=== PATIENT | male | born 1955 | race Caucasian/White ===

== ENCOUNTER 2019-07-20 18:58 | Emergency (ER) | payer MEDICARE, MEDICAID, SELFPAY ==
[2019-07-20 19:11] VITALS: BP 112/66; PULSE 96; RESP 18; TEMP 35.7; O2SAT 96; BMI 35.9
--- NOTE | 2019-07-20 19:26 | ECG_ITS ---
Measurements Intervals [place] Rate: 96 P: 19 MN: 185 QRS: -24 QRSD: 87 T: 58 QT: 334 QTc: 423 SINUS RHYTHM BORDERLINE LEFT AXIS DEVIATION [QRS AXIS < -20] Compared to ECG 12/27/2017 04:02:00 Ventricular premature complex(es) no longer present Electronically Signed On 07-21-2019 15:30:13 CDT by Neil Galdamez M.D. [id number]
--- NOTE | 2019-07-20 19:26 | XR_ITS ---
WS: [id number] CHEST XRAY TECHNIQUE: Portable chest. CLINICAL INFORMATION: cough/congestion COMPARISON: April 17, 2018 FINDINGS: Heart: Cardiomegaly. Lungs: Lungs are clear. No consolidation or pleural effusion. No acute pulmonary infiltrates. Bones: Normal visualized bony structures. XR/XR chest 1V portable [id number] IMPRESSION: No acute chest findings
--- NOTE | 2019-07-20 19:27 | W.ED.BACK ---
HPI - Back Pain/Injury General: Chief Complaint: Back Pain/Injury Stated Complaint: BACK PAIN Time Seen by Provider: 07/20/19 19:14 Source: patient Mode of arrival: ambulatory Limitations: no limitations History of Present Illness: HPI Narrative: Patient is a very nice 63-year-old male with a history of obesity, myocardial infarction with several cardiac stents, hypertension, dyslipidemia, chronic kidney disease and sleep apnea here for complaints of back pain that began earlier this afternoon when patient was outside. Patient states he has had 5 previous heart attacks all of which have presented solely with upper back pains. Patient tells me he was able to drink some water and Gatorade that seemed to help his back pain. He is currently rating his pain at a 2 out of 10. Patient has no complaints of chest pain, shortness of breath, difficulty breathing, diaphoresis, nausea/vomiting. MD elicited complaint: back pain Pertinent past history: prior back pain (with previous MIs) Onset (ago): hour(s) Timing: improved Similar Symptoms Previously: Yes Location: thoracic spine Radiation: none Context: other (while outside in the heat) Associated symptoms: Reports no associated symptoms; Deny abdominal pain, chills, difficulty walking, dysuria, fatigue, fever(s), nausea, syncope, urinary urgency or vomiting Work related injury: No Review of Systems General: Reports: 10 or more systems reviewed and unremarkable except in HPI and below Const: Denies: fever, chills, body aches, change in appetite, change in weight, fatigue or malaise Eyes: Denies: change in vision, blurry vision or photophobia ENMT: Denies: throat pain, enlarged tonsils or painful swallowing Card: Denies: chest pain, palpitations, irregular heart rhythm, edema, swelling of feet/ankles, lightheadedness, syncope or pre-syncope Resp: Denies: shortness of breath, productive cough, non-productive cough, coughing up blood or chest congestion GI: Denies: abdominal pain, nausea or vomiting : Denies: flank pain, difficulty urinating, painful urination, urinary frequency, urinary urgency or urinary hesitancy Musc: Reports: back pain; Denies: neck pain, extremity pain, extremity swelling, joint pain or joint swelling Skin/Breast: Denies: rash Neuro: Denies: headache, numbness in extremities, weakness in extremities, changes in sensation, lack of coordination or difficulty walking PFSH ED PFSH: Social History Smoking and tobacco status: never smoked Alcohol intake: former Lives independently: Yes Household members: other Details: DOG Marital status: service: No Current occupational status: disabled 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 Physical Exam Const: COMMON NORMALS: no apparent distress, oriented x3, no limitations and alert NUTRITIONAL APPEARANCE: obese HENMT: COMMON NORMALS: normocephalic and head/scalp atraumatic HEAD & SCALP: normocephalic and atraumatic Chest: COMMONS NORMALS: inspection of chest normal and palpation of chest normal Resp: COMMON NORMALS: normal respiratory effort and clear to auscultation bilaterally AUSCULTATION: clear to auscultation bilaterally Cardio: COMMON NORMALS: regular rate and regular rhythm RATE: regular rate RHYTHM: regular rhythm GI: COMMON NORMALS: normal to inspection, nondistended, normoactive bowel sounds, soft to palpation and non-tender PALPATION: Yes soft : COMMON NORMALS: Yes no CVA tenderness BLADDER/KIDNEY EXAM: Yes no CVA tenderness Back/Pelvis: COMMON NORMALS: no CVA tenderness, thoracic and lumbar spine normal to inspection, no thoracic nor lumbar tenderness and thoraco-lumbar ROM normal Extremity: COMMON NORMALS: normal to inspection and full ROM Neuro: COMMON NORMALS: oriented x3 SENSORIUM/ORIENTATION: Yes alert Skin: COMMON NORMALS: no rashes or lesions noted GENERAL SKIN EXAM: no rashes or lesions noted Course Vital Signs: Vital signs: Vital Signs Temperature 96.3 F L 07/20/19 19:11 Pulse Rate 87 07/20/19 20:56 Respiratory Rate 16 07/20/19 20:56 Blood Pressure 117/59 07/20/19 20:56 Pulse Oximetry 96 07/20/19 20:56 MDM - Back Pain/Injury MDM Narrative: Medical decision making narrative: Patient keeps telling me I feel good now . States he has no pain. Patient requesting to go home. Patient's initial troponin came back at 23. His repeat is negative. EKGs show no acute changes. His history is not suspicious for cardiac ischemia. Again patient is requesting to be discharged. We will have case management work on getting him set up with his director supplier quality Dr. Galdamez for reevaluation. Lab Data: Labs: Lab Results 07/20/19 07/20/19 07/20/19 Range/Units 19:46 19:46 19:46 WBC 8.8 (4.0-10.0) 10^3/ uL RBC 4.44 (4.1-5.3) 10^6/u L Hgb 12.7 (11.7-16.6) g/dL Hct 39.2 L (42.0-52.0) % MCV 88.3 (80-94) fL MCH 28.6 (28.0-34.0) pg MCHC 32.4 (30.0-36.0) g/dL RDW 14.0 (12.1-15.1) % Plt Count 206 (130-400) 10^3/c mm MPV 11.5 H (7.4-10.4) fL Neut % (Auto) 72.8 % Lymph % (Auto) 15.3 % [place] % (Auto) 9.6 % Eos % (Auto) 1.5 % Baso % (Auto) 0.3 % Neut # (Auto) 6.4 (1.8-7.7) 10^3/u L Lymph # (Auto) 1.3 (0.8-4.8) 10^3/u L [place] # (Auto) 0.8 (0.2-0.9) 10^3/u L Eos # (Auto) 0.1 (0.0-0.8) 10^3/u L Baso # (Auto) 0.0 (0.0-0.1) 10^3/u L Nucleated RBC % (a uto) 0 % Nucleated RBCs # 0.0 /100WBC Sodium 136 (136-145) mmol/L Potassium 4.4 (3.5-5.1) mmol/L Chloride 97 L (98-107) mmol/L Carbon Dioxide 24 (22-29) mmol/L Anion Gap 19.4 H (5-19) BUN 47 H (8-23) mg/dL Creatinine 2.8 H (0.7-1.2) mg/dL GFR Calculation 23.0 L (90-130) mL/min Glucose 227 H (65-115) mg/dL Calculated Osmolal ity 287 (285-295) mOsm/k g Calcium 9.6 (8.5-10.5) mg/dL Total Bilirubin 0.5 (0.15-1.2) mg/dL AST 26 (0-40) U/L ALT 27 (0-41) U/L Alkaline Phosphata se 104 (40-130) IU/L Troponin T Baselin e 23 H (0-15) ng/mL Troponin T 120 Min curyung (0-15) ng/mL Total Protein 7.1 (6.6-8.7) g/dL Albumin 4.2 (3.5-5.2) g/dL Globulin 2.9 (1.3-4.6) g/dL 07/20/19 Range/Units 21:40 WBC (4.0-10.0) 10^3/ uL RBC (4.1-5.3) 10^6/u L Hgb (11.7-16.6) g/dL Hct (42.0-52.0) % MCV (80-94) fL MCH (28.0-34.0) pg MCHC (30.0-36.0) g/dL RDW (12.1-15.1) % Plt Count (130-400) 10^3/c mm MPV (7.4-10.4) fL Neut % (Auto) % Lymph % (Auto) % [place] % (Auto) % Eos % (Auto) % Baso % (Auto) % Neut # (Auto) (1.8-7.7) 10^3/u L Lymph # (Auto) (0.8-4.8) 10^3/u L [place] # (Auto) (0.2-0.9) 10^3/u L Eos # (Auto) (0.0-0.8) 10^3/u L Baso # (Auto) (0.0-0.1) 10^3/u L Nucleated RBC % (a uto) % Nucleated RBCs # /100WBC Sodium (136-145) mmol/L Potassium (3.5-5.1) mmol/L Chloride (98-107) mmol/L Carbon Dioxide (22-29) mmol/L Anion Gap (5-19) BUN (8-23) mg/dL Creatinine (0.7-1.2) mg/dL GFR Calculation (90-130) mL/min Glucose (65-115) mg/dL Calculated Osmolal ity (285-295) mOsm/k g Calcium (8.5-10.5) mg/dL Total Bilirubin (0.15-1.2) mg/dL AST (0-40) U/L ALT (0-41) U/L Alkaline Phosphata se (40-130) IU/L Troponin T Baselin e (0-15) ng/mL Troponin T 120 Min curyung 21.30 H (0-15) ng/mL Total Protein (6.6-8.7) g/dL Albumin (3.5-5.2) g/dL Globulin (1.3-4.6) g/dL Imaging Data^: CXR: My impression: cardiomegaly-unchanged from previous; no acute findings noted EKG Data^: EKG 1: EKG interpretation date: 07/20/19 EKG interpretation time: 19:22 Interpretation: Sinus rhythm Rate [address] elevation or depression noted When compared to most recent EKG on file (12/2017) no acute ischemic changes noted EKG 2: EKG interpretation date: 07/20/19 EKG interpretation time: 21:52 Interpretation: Sinus rhythm Rate 84 No acute changes from previous EKG performed earlier on this visit Discharge Plan Discharge Patient Disposition: Home, Self-Care Clinical Impression: Back pain Qualifiers: Back pain location: thoracic back pain Chronicity: acute Back pain laterality: midline Qualified Code(s): M54.6 - Pain in thoracic spine Condition: Stable Prescriptions: No Action aspirin [Adult Low Dose Aspirin] 81 mg tablet,delayed release (DR/EC) 81 mg PO DAILY RF: 0 clopidogrel 75 mg tablet 75 mg PO DAILY RF: 0 amlodipine 10 mg tablet 10 mg PO QDAY RF: 0 lisinopril 40 mg tablet 40 mg PO DAILY RF: 0 metoprolol tartrate 50 mg tablet 50 mg PO BID RF: 0 pantoprazole 40 mg tablet,delayed release (DR/EC) 40 mg PO DAILY RF: 0 atorvastatin 40 mg tablet 40 mg PO DAILY RF: 0 Multiple Vitamins Tablet 1 tab PO DAILY RF: 0 furosemide 40 mg tablet 40 mg PO BID RF: 0 isosorbide mononitrate 30 mg tablet extended release 24 hr 30 mg PO BID RF: 0 Aleve 220 mg Tablet 220 mg PO Q12H RF: 0 Novolog Mix 70-30FlexPen U-100 100 unit/mL (70-30) insulin pen See Rx Instructions .ROUTE .COMPLEX RF: 0 Victoza 2-Kg 0.6 mg/0.1 mL (18 mg/3 mL) Pen Injector 1.8 mg SUBCUT DAILY RF: 0 Levemir FlexTouch U-100 Insuln 100 unit/mL (3 mL) insulin pen 660 unit SUBCUT BID RF: 0 Discharge Orders: Discharge Order (Routine); Ordered 07/20/19 Ordered By: Maru Blanchard Referrals: [facility] [Other] Activity Restrictions/Additional Instructions: As discussed please return to the emergency department for worsening pain, chest pain, difficulty breathing, sweating, nausea/vomiting, any other concerns you may have. Case management will contact you shortly to set you up with your director supplier quality. Coding Level of Care Code ED Rug Hooker for Hugo Fwjoselo Exam Comprehensive
[2019-07-20 19:53] VITALS: BP 108/61; PULSE 93; RESP 18; O2SAT 97
[2019-07-20 19:56] LABS: Basophils % 0.3 %; Eosinophils # 0.1 10^3/uL (0.0-0.8); Eosinophils % 1.5 %; Hematocrit 39.2 % (42.0-52.0); Hemoglobin 12.7 g/dL (11.7-16.6); Lymphocytes # 1.3 10^3/uL (0.8-4.8); Lymphocytes % 15.3 %; Mean Corpuscular HGB Conc 32.4 g/dL (30.0-36.0); Mean Corpuscular Hemoglobin 28.6 pg (28.0-34.0); Mean Corpuscular Volume 88.3 fL (80-94); Mean Platelet Volume 11.5 fL (7.4-10.4); Monocytes # 0.8 10^3/uL (0.2-0.9); Monocytes % 9.6 %; Neutrophils # 6.4 10^3/uL (1.8-7.7); Neutrophils % 72.8 %; Nucleated Red Blood Cells % 0 %; Platelet Count 206 10^3/cmm (130-400); Red Blood Count 4.44 10^6/uL (4.1-5.3); White Blood Count 8.8 10^3/uL (4.0-10.0)
[2019-07-20 20:11] LABS: Alanine Aminotransferase 27 U/L (0-41); Albumin Level 4.2 g/dL (3.5-5.2); Alkaline Phosphatase 104 IU/L (40-130); Anion Gap 19.4 (5-19); Aspartate Amino Transferase 26 U/L (0-40); Blood Urea Nitrogen 47 mg/dL (8-23); Calcium 9.6 mg/dL (8.5-10.5); Carbon Dioxide 24 mmol/L (22-29); Chloride 97 mmol/L (98-107); Globulin 2.9 g/dL (1.3-4.6); Glucose 227 mg/dL (65-115); Osmolality Calculated 287 mOsm/kg (285-295); Potassium 4.4 mmol/L (3.5-5.1); Sodium 136 mmol/L (136-145); Total Bilirubin 0.5 mg/dL (0.15-1.2); Total Protein 7.1 g/dL (6.6-8.7)
[2019-07-20 20:13] LABS: Troponin(5th) Baseline 23 ng/mL (0-15)
[2019-07-20] MEDS: sodium chloride 0.9% 1,000 ML 125 ML IV (20:53)
[2019-07-20 20:56] VITALS: BP 117/59; PULSE 87; RESP 16; O2SAT 96
--- NOTE | 2019-07-20 21:26 | ECG_ITS ---
Measurements Intervals [place] Rate: 84 P: 26 HI: 194 QRS: -25 QRSD: 94 T: 54 QT: 367 QTc: 434 SINUS RHYTHM BORDERLINE LEFT AXIS DEVIATION [QRS AXIS < -20] Compared to ECG 12/27/2017 04:02:00 Ventricular premature complex(es) no longer present Electronically Signed On 07-21-2019 15:30:56 CDT by Neil Galdamez M.D. [id number]
[2019-07-20 23:14] VITALS: BP 110/60; PULSE 83; RESP 16
--- NOTE | 2019-07-22 13:39 | DCPLANNER ---
technical program manager had message to schedule a follow up appointment for patient with [facility]. technical program manager called [facility], spoke with Luba, gave clinic patients information, was told that patients information would be printed and reviewed. Clinic will call patient with appointment information. technical program manager will call for appointment information.
--- NOTE | 2019-08-03 09:25 | DCPLANNER ---
oil well drilling manager called [facility] to confirm if an appointment had been scheduled with Dr. Galdamez since his visit in ED. oil well drilling manager spoke with Yaima, was told that she would schedule an appointment and will call patient with appointment information.
--- NOTE | 2019-08-04 09:13 | DCPLANNER ---
Patient has an appointment scheduled for Monday, August 05, 2019 at 10:[address] Galdamez. Clinic will call patient with appointment information.
--- NOTE | 2019-08-23 13:53 | DCPLANNER ---
Patient did attend appointment scheduled for 08.05.19 with [facility].
== END 2019-07-20 23:15 | disposition home or self-care (01) ==
PROVIDERS: Emergency Provider Physician Assistant
DX: M54.6 Pain in thoracic spine (principal); E78.5 Hyperlipidemia, unspecified; I12.9 Hypertensive chronic kidney disease with stage 1 through stage 4 chronic kidney disease, or unspecified chronic kidney disease; E11.22 Type 2 diabetes mellitus with diabetic chronic kidney disease; N18.9 Chronic kidney disease, unspecified; E66.9 Obesity, unspecified; G47.33 Obstructive sleep apnea (adult) (pediatric); I25.10 Atherosclerotic heart disease of native coronary artery without angina pectoris; I25.2 Old myocardial infarction
CPT/HCPCS: 12345; 36415; 71045; 80053; 84484; 85025; 93005; 96360; 96361; 99282; 99283; J7030

== ENCOUNTER 2019-09-22 13:19 | Outpatient (CLI) | payer MEDICARE, MEDICAID, SELFPAY ==
[2019-09-22 13:57] LABS: Basophils # 0.1 10^3/uL (0.0-0.1); Basophils % 0.8 %; Eosinophils # 0.2 10^3/uL (0.0-0.8); Eosinophils % 2.4 %; Hematocrit 40.3 % (42.0-52.0); Hemoglobin 12.8 g/dL (11.7-16.6); Lymphocytes # 1.5 10^3/uL (0.8-4.8); Lymphocytes % 20.5 %; Mean Corpuscular HGB Conc 31.8 g/dL (30.0-36.0); Mean Corpuscular Hemoglobin 29.1 pg (28.0-34.0); Mean Corpuscular Volume 91.6 fL (80-94); Mean Platelet Volume 11.3 fL (7.4-10.4); Monocytes # 0.6 10^3/uL (0.2-0.9); Monocytes % 9.1 %; Neutrophils # 4.7 10^3/uL (1.8-7.7); Neutrophils % 66.9 %; Nucleated Red Blood Cells % 0 %; Platelet Count 207 10^3/cmm (130-400); Red Cell Distribution Width 13.7 % (12.1-15.1); White Blood Count 7.1 10^3/uL (4.0-10.0)
[2019-09-22 14:22] LABS: 25 Hydroxy Vitamin D 22 ng/mL (30-100); Albumin Level 4.4 g/dL (3.5-5.2); Anion Gap 20.4 (5-19); Blood Urea Nitrogen 29 mg/dL (8-23); Calcium 9.9 mg/dL (8.5-10.5); Carbon Dioxide 25 mmol/L (22-29); Chloride 96 mmol/L (98-107); Glomerular Filtration Rate 47.3 mL/min (90-130); Glucose 311 mg/dL (65-115); Phosphorus 3.3 mg/dL (2.5-4.5); Potassium 4.4 mmol/L (3.5-5.1); Sodium 137 mmol/L (136-145)
[2019-09-22 14:41] LABS: Creatinine Urine, Random 154 mg/dL (39-259); Microalbumin Random Urine 11 ug/dL (0-20)
[2019-09-22 14:49] LABS: Microalbum Creatinine Ratio Ur 71 mg/dL (0-20)
[2019-09-22 15:32] LABS: Calcium 10.1 mg/dL (8.5-10.5); Parathyroid Hormone 53.9 pg/mL (15-65)
== END 2019-09-22 13:20 | disposition home or self-care (01) ==
PROVIDERS: PCP Internal Medicine; Visit Provider Internal Medicine Nephrology
DX: N18.3 Chronic kidney disease, stage 3 (moderate) (principal)
CPT/HCPCS: 36415; 80069; 82044; 82306; 82310; 83970; 85025

== ENCOUNTER 2020-03-22 12:43 | Outpatient (CLI) | payer MEDICARE, MEDICAID, SELFPAY ==
[2020-03-22 13:44] LABS: Basophils % 0.7 %; Eosinophils # 0.1 10^3/uL (0.0-0.8); Eosinophils % 2.3 %; Hematocrit 42.1 % (42.0-52.0); Hemoglobin 13.3 g/dL (11.7-16.6); Lymphocytes # 1.3 10^3/uL (0.8-4.8); Lymphocytes % 23.3 %; Mean Corpuscular HGB Conc 31.6 g/dL (30.0-36.0); Mean Corpuscular Hemoglobin 27.5 pg (28.0-34.0); Mean Corpuscular Volume 87.2 fL (80-94); Mean Platelet Volume 11.4 fL (7.4-10.4); Monocytes # 0.6 10^3/uL (0.2-0.9); Monocytes % 10.5 %; Neutrophils # 3.61 10^3/uL (1.8-7.7); Nucleated Red Blood Cells % 0 %; Platelet Count 204 10^3/cmm (130-400); Red Blood Count 4.83 10^6/uL (4.1-5.3); Red Cell Distribution Width 13.7 % (12.1-15.1); White Blood Count 5.7 10^3/uL (4.0-10.0)
[2020-03-22 14:05] LABS: Creatinine Urine, Random 47 mg/dL (39-259); Microalbumin Random Urine 5 ug/dL (0-20)
[2020-03-22 14:09] LABS: Microalbum Creatinine Ratio Ur 106 mg/dL (0-20)
[2020-03-22 14:21] LABS: 25 Hydroxy Vitamin D 26 ng/mL (30-100); Albumin Level 4.2 g/dL (3.5-5.2); Anion Gap 13.6 (5-19); Blood Urea Nitrogen 21 mg/dL (8-23); Calcium 9.4 mg/dL (8.5-10.5); Carbon Dioxide 27 mmol/L (22-29); Chloride 100 mmol/L (98-107); Glucose 151 mg/dL (65-115); Phosphorus 3.1 mg/dL (2.5-4.5); Potassium 3.6 mmol/L (3.5-5.1); Sodium 137 mmol/L (136-145)
[2020-03-22 14:25] LABS: Calcium 9.7 mg/dL (8.5-10.5)
[2020-03-22 18:45] LABS: Parathyroid Hormone 58.2 pg/mL (15-65)
== END 2020-03-22 12:44 | disposition home or self-care (01) ==
PROVIDERS: PCP Internal Medicine; Visit Provider Registered Nurse
DX: N18.30 Chronic kidney disease, stage 3 unspecified (principal)
CPT/HCPCS: 80069; 82044; 82306; 82310; 83970; 85025

== ENCOUNTER → 2020-04-08 12:44 | Outpatient (BNVA) | payer MEDICARE, MEDICAID, SELFPAY | PROVIDERS: PCP Internal Medicine; Visit Provider Nurse Practitioner Family | DX: Z20.828 Contact with and (suspected) exposure to other viral communicable diseases (principal) | CPT/HCPCS: 87635 ==

== ENCOUNTER 2020-05-12 11:25 | Outpatient (CLI) | payer MEDICARE, MEDICAID, SELFPAY ==
--- NOTE | 2020-05-12 11:58 | XRR_ITS ---
PROCEDURE INFORMATION: Exam: XR Abdomen, 1 View Exam date and time: 05/12/2020 11:58 AM Age: 64 years old Clinical indication: Abdominal pain; Prior surgery; Additional info: Back pain TECHNIQUE: Imaging protocol: XR of the abdomen. Views: Frontal supine view of the abdomen. 1 View. COMPARISON: CT Chest/Abdomen/Pelvis wo IV 12/24/2017 1:05 AM FINDINGS: Gastrointestinal tract: There is prominence of the amount of stool in the ascending and transverse colon. The small bowel is not dilated. Bones/joints: Unremarkable. XR/XR KUB [id number] IMPRESSION: 1. Prominence of the amount of stool in the colon. 2. No acute abnormalities are seen in the abdomen.
== END 2020-05-12 11:26 | disposition home or self-care (01) ==
LOC: RAD 11:28
PROVIDERS: PCP Internal Medicine; Visit Provider Nurse Practitioner
DX: M54.9 Dorsalgia, unspecified (principal)
CPT/HCPCS: 74018; 81000

== ENCOUNTER 2020-09-27 14:35 | Outpatient (CLI) | payer MEDICARE, MEDICAID, SELFPAY ==
[2020-09-27 15:19] LABS: Basophils # 0.1 10^3/uL (0.0-0.1); Basophils % 0.7 %; Eosinophils # 0.1 10^3/uL (0.0-0.8); Eosinophils % 1.5 %; Hematocrit 40.5 % (42.0-52.0); Hemoglobin 13.2 g/dL (11.7-16.6); Lymphocytes # 1.4 10^3/uL (0.8-4.8); Lymphocytes % 20.7 %; Mean Corpuscular HGB Conc 32.6 g/dL (30.0-36.0); Mean Corpuscular Hemoglobin 28.6 pg (28.0-34.0); Mean Corpuscular Volume 87.9 fL (80-94); Mean Platelet Volume 11.6 fL (7.4-10.4); Monocytes # 0.5 10^3/uL (0.2-0.9); Monocytes % 7.7 %; Neutrophils # 4.68 10^3/uL (1.8-7.7); Neutrophils % 69.1 %; Nucleated Red Blood Cells % 0 %; Platelet Count 203 10^3/cmm (130-400); Red Blood Count 4.61 10^6/uL (4.1-5.3); Red Cell Distribution Width 14.6 % (12.1-15.1); White Blood Count 6.8 10^3/uL (4.0-10.0)
[2020-09-27 15:42] LABS: Albumin Level 4.2 g/dL (3.5-5.2); Anion Gap 15.8 (5-19); Blood Urea Nitrogen 29 mg/dL (8-23); Calcium 8.8 mg/dL (8.5-10.5); Carbon Dioxide 26 mmol/L (22-29); Chloride 98 mmol/L (98-107); Glomerular Filtration Rate 55.6 mL/min (90-130); Glucose 273 mg/dL (65-115); Phosphorus 3.7 mg/dL (2.5-4.5); Potassium 3.8 mmol/L (3.5-5.1); Sodium 136 mmol/L (136-145)
[2020-09-27 15:50] LABS: Calcium 8.9 mg/dL (8.5-10.5)
[2020-09-27 15:52] LABS: Parathyroid Hormone 75.6 pg/mL (15-65)
[2020-09-27 15:57] LABS: 25 Hydroxy Vitamin D 26 ng/mL (30-100)
[2020-09-27 16:08] LABS: Creatinine Urine, Random 58 mg/dL (39-259); Microalbumin Random Urine 3 ug/dL (0-20)
[2020-09-27 16:11] LABS: Microalbum Creatinine Ratio Ur 52 mg/dL (0-20)
== END 2020-09-27 14:36 | disposition home or self-care (01) ==
LOC: LAB 14:44
PROVIDERS: PCP Internal Medicine; Visit Provider Internal Medicine Nephrology
DX: N18.30 Chronic kidney disease, stage 3 unspecified (principal)
CPT/HCPCS: 36415; 80069; 82044; 82306; 82310; 83970; 85025

== ENCOUNTER → 2020-12-14 13:17 | Outpatient (BNVA) | payer MEDICARE, MEDICAID, SELFPAY | PROVIDERS: PCP Internal Medicine; Visit Provider Surgery | DX: K52.9 Noninfective gastroenteritis and colitis, unspecified (principal); Z20.822 Contact with and (suspected) exposure to COVID-19 | CPT/HCPCS: 87635 ==

== ENCOUNTER 2020-12-20 07:53 | Day surgery (SDC) | payer MEDICARE, MEDICAID, SELFPAY ==
[2020-12-13 14:27] VITALS: BMI 34.2
--- NOTE | 2020-12-20 08:09 | ANES.PREANE2 ---
Pre-Anesthetic Assessment Pre-Anesthetic Assessment: Height/Weight: Height 1.73 m Weight 102.058 kg Preop Diagnosis: Diarrhea Proposed Procedure: Operation Date: 12/20/20 09:30 Proposed Procedures p [id number] k52.9(Not Applicable) - Prashant Haynes MD Familial anesthetic complications: None Was Beta Christian taken within 24 hours: Yes Was Clonidine taken within 24 hours: N/A Last intake: None Social: Social History: No alcohol and No tobacco Exam: Pre-Anes Outpt Exam: alert, oriented x 3, clear to auscultation bilaterally and regular rate & rhythm Airway: Cervical ROM: WNL MP: 1 Dentition: Other (no teeth) Pulmonary: Pulmonary: Sleep apnea CV/HEM: CV/HEM: CAD (stents > 1 year ago), HTN and OH (> 1 year ago) : : Chronic renal Insufficiency Metabolic: Metabolic: DM and Hyperlipidemia Musc/skel: Musc/skel: Lower Back Pain Anesthetic Plan: ASA status: 3 Anesthesia: MAC Risk of > 500 ml blood loss (7ml/kg in children): No PFSH Anesthesia PFSH: Medical History ASHD (arteriosclerotic heart disease) CKD (chronic kidney disease) (~10/12/20) Diabetes Diabetic foot ulcer HTN (hypertension) Hyperlipidemia Myocardial infarction CÉSAR (obstructive sleep apnea) Surgical History S/P angioplasty with stent S/P eye surgery Status post amputation of toe Status post colonoscopy Family History Mother CAD (coronary artery disease) Diabetes Social History Smoking and tobacco status: former smoker Alcohol intake: former Lives independently: Yes Household members: other Details: DOG Marital status: service: No Current occupational status: disabled 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
[2020-12-20 09:18] VITALS: BP 140/77; PULSE 78; RESP 18; TEMP 36.2; O2SAT 93
--- NOTE | 2020-12-20 09:20 | PC.NURSE ---
PATIENT STATES HE ATE ALL DAY YESTERDAY AND ONLY FEW BMS. INADEQUATE PREP. PT STATED HE MUST HAVE MISUNDERSTOOD THE COLON PREP. DR DANIELLE NOTIFIED. ORDERED TO RESCHEDULE CASE TO Thursday. NEW REG ACCOUNT WILL HAVE TO BE CREATED. REPEAT COVID SWAB WILL BE COLLECTED PRIOR TO LEAVING. IN CONTACT WITH DR DANIELLE'S OFFICE IN REGARDS TO RESCHEDULING CASE. PATIENT GIVEN ANOTHER COPY OF COLON PREP AND HEAVILY EDUCATED ON INSTRUCTIONS. SON AT BEDSIDE AND ALSO VERBALIZES UNDERSTANDING. PT VERBALIZED UNDERSTANDING THAT HE WILL NEED TO PURCHASE THE PREP MEDICATIONS AGAIN. WILL CALL PATIENT WILL NEW APPOINTMENT TIME WHEN FINALIZED.
--- NOTE | 2020-12-20 14:53 | ANE.PACU2 ---
Inpatient post-anesthesia follow up: Airway intact: Yes Vital signs: Temperature 97.2 F Pulse Rate 78 Respiratory Rate 18 Blood Pressure 140/77 Pulse Oximetry 93 Oxygen Delivery Me thod Room Air Oxygen Flow Rate Fraction of Inspir ed Oxygen Hydration adequate: Yes Nausea and vomiting: No Mental status: Baseline
[2020-12-21 14:58] LABS: Coronavirus Test Green County Not Detected
== END 2020-12-20 10:05 | disposition home or self-care (01) ==
PROVIDERS: PCP Internal Medicine; Visit Provider Surgery
PROC: 0DJD8ZZ Inspection of Lower Intestinal Tract, Via Natural or Artificial Opening Endoscopic (ICD-10-PCS; CPT 45378; principal; 2020-12-20 09:30)
DX: K52.9 Noninfective gastroenteritis and colitis, unspecified (principal); Z53.9 Procedure and treatment not carried out, unspecified reason
CPT/HCPCS: 87635

== ENCOUNTER 2020-12-24 06:35 | Day surgery (SDC) | payer MEDICARE, MEDICAID, SELFPAY ==
[2020-12-20 13:38] VITALS: BMI 33.4
--- NOTE | 2020-12-24 06:55 | W.PM.OPSFHP ---
Same Day Surgery H&P Indication for Procedure/HPI DATE OF PROCEDURE: December 24, 2020 CHIEF COMPLAINT/INDICATIONFOR SURGICAL PROCEDURE: chronic diarrhea PREOP DIAGNOSIS: screening colonoscopy PLANNED PROCEDRUE: Operation Date: 12/24/20 08:00 Proposed Procedures p Colonoscopy 73382 K52.9(Not Applicable) - Prashant Haynes MD Medications/Allergies* Home Medications Medication Instructions Recorded Confirmed Type amlodipine 10 mg tablet 10 mg PO QDAY 05/10/19 12/20/20 History aspirin 81 mg tablet,delayed 81 mg PO DAILY 05/10/19 12/20/20 History release atorvastatin 40 mg tablet 40 mg PO DAILY 05/10/19 12/20/20 History lisinopril 40 mg tablet 40 mg PO DAILY 05/10/19 12/20/20 History pantoprazole 40 mg tablet,delayed 40 mg PO DAILY 05/10/19 12/20/20 History release furosemide 40 mg PO BID 07/20/19 12/20/20 History insulin detemir U-100 [Levemir 660 unit SUBCUT BID 07/20/19 12/20/20 History FlexTouch U-100 Insuln] isosorbide mononitrate 30 mg PO BID 07/20/19 12/20/20 History liraglutide [Victoza 2-Kg] 1.8 mg SUBCUT DAILY 07/20/19 12/20/20 History naproxen sodium [Aleve] 220 mg PO Q12H 07/20/19 12/20/20 History insulin lispro 100 unit/mL 12 unit SUBCUT TID 10/12/20 12/20/20 History subcutaneous pen Allergies/Adverse Reactions Allergy/AdvReac Type Severity Reaction Status Date / Time No Known Allergies Allergy Verified 12/20/20 13:36 Pertinent History/Comorbid Conditions* Medical History (Updated 10/12/20 @ 08:42 by Prashant Haynes MD) ASHD (arteriosclerotic heart disease) CKD (chronic kidney disease) (~10/12/20) Diabetes Diabetic foot ulcer HTN (hypertension) Hyperlipidemia Myocardial infarction CÉSAR (obstructive sleep apnea) Surgical History (Updated 10/12/20 @ 08:42 by Prashant Haynes MD) S/P angioplasty with stent S/P eye surgery Status post amputation of toe Status post colonoscopy Family History (Updated 05/10/19 @ 12:26 by Jaye Hale RN) Diabetes Mother CAD (coronary artery disease) Mother Social History Smoking and tobacco status: former smoker Alcohol intake: former Lives independently: Yes Household members: other Details: DOG Marital status: service: No Current occupational status: disabled 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
[2020-12-24 07:12] VITALS: BP 156/92; PULSE 109; RESP 18; TEMP 36.6; O2SAT 97
--- NOTE | 2020-12-24 07:14 | ANES.PREANE2 ---
Pre-Anesthetic Assessment Pre-Anesthetic Assessment: Height/Weight: Height 1.73 m Weight 99.79 kg Preop Diagnosis: screening colonoscopy Proposed Procedure: Operation Date: 12/24/20 08:00 Proposed Procedures p Colonoscopy 83835 K52.9(Not Applicable) - Prashant Haynes MD Familial anesthetic complications: none Was Beta Christian taken within 24 hours: Yes Was Clonidine taken within 24 hours: N/A Social: Social History: No alcohol and No tobacco Exam: Pre-Anes Outpt Exam: alert, oriented x 3, clear to auscultation bilaterally and regular rate & rhythm Airway: Submandibular: WNL Cervical ROM: WNL MP: 2 Dentition: False Pulmonary: Pulmonary: Sleep apnea CV/HEM: CV/HEM: CAD, HTN, CT and PVD Comments: MIx6, stentsx6 : : Chronic renal Insufficiency Hepatic: Hepatic: None reported GI: GI: GERD (controlled) Metabolic: Metabolic: DM, Hyperlipidemia and Morbid obesity Musc/skel: Musc/skel: OA/DJD Neuropsych: Neuropsych: None reported Anesthetic Plan: ASA status: 3 Anesthesia: MAC Risk of > 500 ml blood loss (7ml/kg in children): No PFSH Anesthesia PFSH: Medical History ASHD (arteriosclerotic heart disease) CKD (chronic kidney disease) (~10/12/20) Diabetes Diabetic foot ulcer HTN (hypertension) Hyperlipidemia Myocardial infarction CÉSAR (obstructive sleep apnea) Surgical History S/P angioplasty with stent S/P eye surgery Status post amputation of toe Status post colonoscopy Family History Mother CAD (coronary artery disease) Diabetes Social History Smoking and tobacco status: former smoker Alcohol intake: former Lives independently: Yes Household members: other Details: DOG Marital status: service: No Current occupational status: disabled 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
--- NOTE | 2020-12-24 07:22 | ECG_ITS ---
[facility] Test Date: 2020-12-24 Pat Name: Yaya Astudillo Department: Room: Gender: Male Cabin Agent: : 1955 Requested By: Luis Guerra Order Number: [id number] MD: Kimberley Ramirez M.D. Measurements Intervals [place] Rate: 104 P: 24 FL: 209 QRS: -26 QRSD: 86 T: 50 QT: 349 QTc: 459 Interpretive Statements SINUS TACHYCARDIA POSSIBLE ANTERIOR MYOCARDIAL INFARCTION , OF INDETERMINATE AGE Compared to ECG 07/20/2019 21:52:49 Myocardial infarct finding now present Sinus rhythm no longer present Electronically Signed On 12-24-2020 19:10:44 CDT by Kimberley Ramirez M.D. [id number]
[2020-12-24] MEDS: sodium chloride 0.9% 1,000 ML 30 ML IV (07:26)
[2020-12-24 07:27] LABS: Glucose Point of Care 145 mg/dL (70-110)
[2020-12-24 08:27] VITALS: BP 91/78; PULSE 99; RESP 14; TEMP 36.1; O2SAT 95
--- NOTE | 2020-12-24 08:29 | ANE.PACU2 ---
Inpatient post-anesthesia follow up: Airway intact: Yes Vital signs: Temperature 97.9 F Pulse Rate 109 Respiratory Rate 18 Blood Pressure 156/92 Pulse Oximetry 97 Oxygen Delivery Me thod Room Air Oxygen Flow Rate Fraction of Inspir ed Oxygen Hydration adequate: Yes Nausea and vomiting: No Pain level: 1 Mental status: Baseline
[2020-12-24 08:40] VITALS: BP 136/85; PULSE 102; RESP 18; O2SAT 97
--- NOTE | 2020-12-24 09:02 | PC.NURSE ---
Pt states he has not passed gas, denies any pain.
== END 2020-12-24 09:00 | disposition home or self-care (01) ==
PROVIDERS: PCP Internal Medicine; Visit Provider Surgery
PROC: 0DJD8ZZ Inspection of Lower Intestinal Tract, Via Natural or Artificial Opening Endoscopic (ICD-10-PCS; CPT 45378; principal; 2020-12-24 08:00)
DX: K52.9 Noninfective gastroenteritis and colitis, unspecified (principal); D12.5 Benign neoplasm of sigmoid colon; K64.8 Other hemorrhoids; E78.5 Hyperlipidemia, unspecified; I25.2 Old myocardial infarction; G47.33 Obstructive sleep apnea (adult) (pediatric); E11.22 Type 2 diabetes mellitus with diabetic chronic kidney disease; I12.9 Hypertensive chronic kidney disease with stage 1 through stage 4 chronic kidney disease, or unspecified chronic kidney disease; N18.9 Chronic kidney disease, unspecified; I25.10 Atherosclerotic heart disease of native coronary artery without angina pectoris; Z95.5 Presence of coronary angioplasty implant and graft; E66.01 Morbid (severe) obesity due to excess calories; Z68.33 Body mass index [BMI] 33.0-33.9, adult; Z87.891 Personal history of nicotine dependence
CPT/HCPCS: 36416; 45380; 82274; 82962; 83630; 87493; 87506; 88305; 93005; 96360; J7030

== ENCOUNTER 2021-03-07 17:14 | Emergency (ER) | payer MEDICARE, MEDICAID, SELFPAY ==
[2021-03-07 17:34] VITALS: BP 170/83; PULSE 87; RESP 16; TEMP 36.3; O2SAT 96; BMI 33.4
--- NOTE | 2021-03-07 17:56 | W.ED.WEAKNES ---
HPI - Weakness General: Chief complaint: Weakness Stated complaint: DIZZY AND WEAK Time Seen by Provider: 03/07/21 17:32 History of Present Illness: HPI Narrative: Patient is a 65-year-old male comes to the ED with dizziness and weakness. Past medical history of sleep apnea, CKD, hypertension, hyperlipidemia, diabetes and arteriosclerotic heart disease. Patient also has a history of a past NE. Patient says he was feeling good today and when he sat down to eat dinner, while eating he started feeling really lightheaded and weak. He also reports feeling dizzy and describes it as cork bobbing on the ocean, denies room spinning. Denies any chest pain, shortness of breath, abdominal pain, headache. He feels nauseous and had an episode of emesis upon arriving to the ED. He says is bilateral arms and legs feel heavy. Son is present with patient and did say that somebody at the house brought over some pot brownies and he is worried that maybe his dad ate 1 of those brownies. Associated symptoms: Reports nausea and vomiting; Denies chest pain, chills, dysuria, fever(s) or headache(s) Review of Systems Const: Reports: fatigue (Generalized weakness); Denies: fever(s) or chills Eyes: Denies: change in vision or eye discomfort ENMT: Denies: throat pain, odynophagia, nasal discharge or nasal congestion Card: Reports: lightheadedness; Denies: chest pain, palpitations, edema, swelling of feet/ankles, dyspnea on exertion or orthopnea Resp: Denies: dyspnea, productive cough or non-productive cough GI: Reports: nausea and vomiting; Denies: abdominal pain, diarrhea, constipation or hematochezia : Denies: flank pain, difficulty urinating, dysuria or hematuria Musc: Denies: neck pain, back pain or extremity swelling Skin/Breast: Denies: rash or new lesions Neuro: Reports: dizziness; Denies: headache(s), numbness in extremities or weakness in extremities PFS ED PFSH: Medical History ASHD (arteriosclerotic heart disease) CKD (chronic kidney disease) (~10/12/20) Diabetes Diabetic foot ulcer HTN (hypertension) Hyperlipidemia Myocardial infarction CÉSAR (obstructive sleep apnea) Surgical History S/P angioplasty with stent S/P eye surgery Status post amputation of toe Status post colonoscopy (12/24/20) sigmoid polyp Family History Mother CAD (coronary artery disease) Diabetes Social History Smoking and tobacco status: former smoker Alcohol intake: former Lives independently: Yes Household members: other Details: DOG Marital status: service: No Current occupational status: disabled 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 Physical Exam Const: COMMON NORMALS: no acute distress, patient oriented x3 and alert GENERAL APPEARANCE: cooperative and comfortable HENMT: COMMON NORMALS: normocephalic HEAD & SCALP: normocephalic MOUTH: Normal oral and palatal mucosa present THROAT: posterior oropharynx normal and uvula midline Neck/C-Spine: COMMON NORMALS: supple GENERAL: Yes normal visual inspection Resp: COMMON NORMALS: normal respiratory effort, No retractions, No use of accessory muscles and clear to auscultation bilaterally AUSCULTATION: clear to auscultation bilaterally Cardio: COMMON NORMALS: regular rate, regular rhythm, S1 normal heart sound present, S2 normal heart sound present, No gallops present (Cardio), No clicks present (Cardio), No murmurs present (Cardio) and Peripheral pulses 2+ throughout RATE: regular rate RHYTHM: regular rhythm HEART SOUNDS: S1 normal heart sound present and S2 normal heart sound present PERIPHERAL PULSES: Peripheral pulses 2+ throughout GI: COMMON NORMALS: Normal to inspection, nondistended, normoactive bowel sounds present, Soft to palpation, non-tender and no masses PALPATION: Yes Soft to palpation : COMMON NORMALS: Yes no CVA tenderness BLADDER/KIDNEY EXAM: Yes no CVA tenderness Back/Pelvis: COMMON NORMALS: no CVA tenderness Neuro: COMMON NORMALS: patient oriented x3 and moves all extremities SENSORIUM/ORIENTATION: Yes alert Skin: GENERAL SKIN EXAM: dry skin Course Reevaluation(s): Reevaluation #1: I went in and talked with patient about him testing positive in his urine for marijuana. Patient says he does not use marijuana and the last time he ever tried it was when he was 19 years old. Patient did say he ate one of the brownie/muffins that was brought at [facility] today but was unaware that there was any marijuana in the brownie/muffin he ate. Time: 20:28 Reevaluation #2: Patient symptoms were improving and did not feel as lightheaded, fatigued and dizzy. Time: 20:54 Vital Signs: Vital signs: Vital Signs Temperature 97.4 F L 03/07/21 17:34 Pulse Rate 78 03/07/21 21:49 Respiratory Rate 18 03/07/21 21:49 Blood Pressure 151/58 03/07/21 21:49 Pulse Oximetry 99 03/07/21 21:49 MDM - Weakness MDM Narrative: Medical decision making narrative: Patient is a 65-year-old male who comes to the ED with generalized fatigue, dizziness and lightheaded. Past medical history of sleep apnea, CKD, hypertension, hyperlipidemia, diabetes and arterial sclerotic heart disease. Symptoms started while he was eating dinner tonight. Denies any syncopal episode, shortness of breath, chest pain. Patient did find out that one of the people came over and brought some pot brownies and patient was unaware that there was any marijuana in the brownies. He ate 1 of those's prior to him developing symptoms. Patient denies any marijuana use and states that if his urine shows marijuana that would be from the brownie. Vitals are stable. Exam is benign. Troponin negative. Chest x-ray shows no acute findings. EKG shows no acute findings. CBC and CMP were unremarkable. UA was unremarkable. Urine drug screen did test positive for marijuana. Alcohol level normal. CT of head showed no acute findings. Patient diagnosed with marijuana intoxication giving history and presentation of patient. His symptoms started improving while here in the ED. He was discharged home and told to follow-up with his PCP in 5 to 7 days reevaluation. Return to ED precautions given. Patient understood agree with plan. Lab Data: Attestation: I reviewed the patient's lab results. Labs: Lab Results 03/07/21 03/07/21 03/07/21 18:46 18:46 18:46 WBC 6.6 10^3/uL 10^3/ uL (4.0-10.0) RBC 4.86 10^6/uL 10^6 /uL (4.1-5.3) Hgb 13.9 g/dL g/dL (11.7-16.6) Hct 43.9 % % (42.0-52.0) MCV 90.3 fl fl (80-94) MCH 28.6 pg pg (28.0-34.0) MCHC 31.7 g/dL g/dL (30.0-36.0) RDW 13.4 % % (12.1-15.1) Plt Count 176 10^3/cmm 10^3 /cmm (130-400) MPV 11.1 fL H fL (7.4-10.4) Neut % (Auto) 78.9 % % Lymph % (Auto) 12.5 % % [place]verse % (Auto) 6.6 % % Eos % (Auto) 1.2 % % Baso % (Auto) 0.5 % % Neut # (Auto) 5.22 10^3/uL 10^3 /uL (1.8-7.7) Lymph # (Auto) 0.8 10^3/uL 10^3/ uL (0.8-4.8) Converse # (Auto) 0.4 10^3/uL 10^3/ uL (0.2-0.9) Eos # (Auto) 0.1 10^3/uL 10^3/ uL (0.0-0.8) Baso # (Auto) 0.0 10^3/uL 10^3/ uL (0.0-0.1) Nucleated RBC % (a uto) 0 % % Nucleated RBCs # 0.0 /100WBC /100W BC Sodium 136 mmol/L mmol/L (136-145) Potassium 4.0 mmol/L mmol/L (3.5-5.1) Chloride 96 mmol/L L mmol/ L (98-107) Carbon Dioxide 28 mmol/L mmol/L (22-29) Anion Gap 16.0 (5-19) BUN 21 mg/dL mg/dL (8-23) Creatinine 1.5 mg/dL H mg/dL (0.7-1.2) GFR Calculation 47.0 mL/min L mL/ min (90-130) Glucose 293 mg/dL H mg/dL (65-115) Calculated Osmolal ity 296 mOsm/kg H mOs m/kg (285-295) Calcium 8.8 mg/dL mg/dL (8.5-10.5) Total Bilirubin 0.6 mg/dL mg/dL (0.15-1.2) AST 17 U/L U/L (0-40) ALT 19 U/L U/L (0-41) Alkaline Phosphata se 112 IU/L IU/L (40-130) Troponin T Baselin e 15 ng/L ng/L (0-15) Troponin T 120 Min [place] Delta Troponin T NT-Pro-B Natriuret Pep 127 pg/mL H pg/mL (0-125) Total Protein 6.9 g/dL g/dL (6.6-8.7) Albumin 4.4 g/dL g/dL (3.5-5.2) Globulin 2.5 g/dL g/dL (1.3-4.6) Lipase 41 U/L U/L (13-60) Urine Color Urine Appearance Urine pH Ur Specific Gravit y Urine Protein Urine Glucose (UA) Urine Ketones Urine Blood Urine Nitrate Urine Bilirubin Urine Urobilinogen Ur Leukocyte Roma ase Urine RBC Urine WBC Ur Squamous Epith Cells Amorphous Sediment Urine Bacteria Urine Sperm Urine Opiates Scre en Ur Barbiturates Sc reen Ur Phencyclidine S crn Ur Amphetamines Sc reen U Benzodiazepines Scrn Urine Cocaine Scre en U Marijuana (THC) Screen Ethyl Alcohol < 10 mg/dL mg/dL (0-10) 03/07/21 03/07/21 03/07/21 19:19 19:19 20:27 WBC RBC Hgb Hct MCV MCH MCHC RDW Plt Count MPV Neut % (Auto) Lymph % (Auto) [place] % (Auto) Eos % (Auto) Baso % (Auto) Neut # (Auto) Lymph # (Auto) [place] # (Auto) Eos # (Auto) Baso # (Auto) Nucleated RBC % (a uto) Nucleated RBCs # Sodium Potassium Chloride Carbon Dioxide Anion Gap BUN Creatinine GFR Calculation Glucose Calculated Osmolal ity Calcium Total Bilirubin AST ALT Alkaline Phosphata se Troponin T Baselin e Troponin T 120 Min [place] 15.71 ng/L H ng/L (0-15) Delta Troponin T 0.71 ABS# ABS# (0-10) NT-Pro-B Natriuret Pep Total Protein Albumin Globulin Lipase Urine Color Yellow (Yellow) Urine Appearance Clear (CLEAR) Urine pH 6.5 (5-7) Ur Specific Gravit y 1.005 (1.005-1.030) Urine Protein Trace (Negative) Urine Glucose (UA) 4+ H (Normal) Urine Ketones Negative (Negative) Urine Blood Neg (Negative) Urine Nitrate Negative (Negative) Urine Bilirubin Neg (Negative) Urine Urobilinogen Norm mg/dL mg/dL (Negative) Ur Leukocyte Roma ase Negative (Negative) Urine RBC 0-4 /hpf H /hpf (0-2) Urine WBC 0-4 /hpf H /hpf (0-5) Ur Squamous Epith Cells 0-4 /hpf H /hpf (0-5) Amorphous Sediment Not Reportable Urine Bacteria Trace /hpf /hpf (NONE) Urine Sperm 1+ /hpf /hpf Urine Opiates Scre en Negative ng/mL ng /mL (Negative) Ur Barbiturates Sc reen Negative ng/mL ng /mL (Negative) Ur Phencyclidine S crn Negative ng/mL ng /mL (Negative) Ur Amphetamines Sc reen Negative ng/mL ng /mL (Negative) U Benzodiazepines Scrn Negative ng/mL ng /mL (Negative) Urine Cocaine Scre en Negative ng/mL ng /mL (Negative) U Marijuana (THC) Screen Positive ng/mL H ng/mL (Negative) Ethyl Alcohol Imaging Data^: CT Head: Attestation: I personally reviewed and interpreted this imaging study as follows: Radiologist's impression: [address] [address] [address] Scan Report Signed Patient: Yaya Astudillo Unit #: [id number] : 1955 Age/Sex: 65 / M ADM Date: 03/07/21 Loc: ER Room/Bed: Attending Dr: Ordering Provider/Ordering MD: Servando Balbuena Date of Service: 03/07/21 Procedure(s): CT head wo con* [id number] Accession Number(s): [id number] Report Number: [id number] PROCEDURE INFORMATION: Exam: CT Head Without Contrast Exam date and time: 03/07/2021 6:04 PM Age: 65 years old Clinical indication: Dizziness TECHNIQUE: Imaging protocol: Computed tomography of the head without contrast. Total images: 190 Radiation optimization: All CT scans at this facility use at least one of these dose optimization techniques: automated exposure control; mA and/or kV adjustment per patient size (includes targeted exams where dose is matched to clinical indication); or iterative reconstruction. COMPARISON: No relevant prior studies available. RADIATION DOSE METRICS: Total DLP (mGy-cm): 906.41 FINDINGS: Brain: No evidence of active or acute intracranial pathologic process, hemorrhage, or trauma. No visible evidence of diffuse cerebral edema or generalized demyelination. No mass effect. No midline shift. No hyperdense MCA or insular ribbon sign. Cerebral ventricles: No ventriculomegaly. Paranasal sinuses: Visualized sinuses are unremarkable. No fluid levels. Mastoid air cells: Visualized mastoid air cells are well aerated. Bones/joints: Unremarkable. No acute fracture. Soft tissues: Unremarkable. CT/CT head wo con* [id number] IMPRESSION: No evidence of active or acute intracranial pathologic process, hemorrhage, or trauma. Radiation Dose CTDIVOL = (mGy): DLP = 906.41 (mGy-cm) Dictated By: Yaya Bonner Signed By: Yaya Bonner Signed Date/Time: 03/07/211954 DD/ 03 CXR: Attestation: I personally reviewed and interpreted this imaging study as follows: Radiologist's impression: [address] [address] XRay Report Signed Patient: Yaya Astudillo Unit #: [id number] : 1955 Age/Sex: 65 / M ADM Date: 03/07/21 Loc: ER Room/Bed: Attending Dr: Ordering Provider/Ordering MD: Servando Balbuena Date of Service: 03/07/21 Procedure(s): XR chest 1V portable [id number] Accession Number(s): [id number] Report Number: [id number] PROCEDURE INFORMATION: Exam: XR Chest Exam date and time: 03/07/2021 6:11 PM Age: 65 years old Clinical indication: Pain; Chest pressure; Additional info: Lightheaded, weakness TECHNIQUE: Imaging protocol: XR of the chest. Views: 1 view. Total images: 1 COMPARISON: CR XR chest 1V portable [id number] 07/20/2019 7:29 PM FINDINGS: Lungs: No visible active interstitial or alveolar airspace disease. Calcified granulomas of antecedent disease. Pleural spaces: Unremarkable. No pleural effusion. No pneumothorax. Heart/Mediastinum: Cardiac structures and configuration within normal limits. Bones/joints: Unremarkable. Soft tissues: Heavy body habitus. XR/XR chest 1V portable [id number] IMPRESSION: Nonacute. Radiation Dose CTDIVOL = (mGy): DLP = (mGy-cm) Dictated By: Yaya Bonner Signed By: Yaya Bonner Signed Date/Time: 03/07/211952 DD/ 10 EKG Data^: EKG 1: Attestation: I personally reviewed and interpreted this EKG as follows: EKG interpretation date: 03/07/21 Interpretation: Normal sinus rhythm, 87 bpm, no ST segment elevation or depression seen. EKG 2: Attestation: I personally reviewed and interpreted this EKG as follows: EKG interpretation date: 03/07/21 EKG interpretation time: 20:23 Interpretation: Normal sinus rhythm, 80 bpm, no ST segment elevation or depression seen. Discharge Plan Discharge Patient Disposition: Home Clinical Impression: Marijuana intoxication Qualifiers: Complication of substance-induced condition: uncomplicated Qualified Code(s): F12.920 - Cannabis use, unspecified with intoxication, uncomplicated Condition: Stable Prescriptions: No Action aspirin [Adult Low Dose Aspirin] 81 mg tablet,delayed release (DR/EC) 81 mg PO DAILY RF: 0 amlodipine 10 mg tablet 10 mg PO QDAY RF: 0 lisinopril 40 mg tablet 40 mg PO DAILY RF: 0 pantoprazole 40 mg tablet,delayed release (DR/EC) 40 mg PO DAILY RF: 0 atorvastatin 40 mg tablet 40 mg PO DAILY RF: 0 baclofen 5 mg tablet 5 mg PO BID PRN (Reason: pain) Qty: 10 RF: 0 insulin lispro [Humalog KwikPen Insulin] 100 unit/mL insulin pen 12 unit SUBCUT TID RF: 0 clopidogrel 75 mg tablet 75 mg PO DAILY 90 Days Qty: 90 RF: 3 metoprolol tartrate 50 mg tablet 50 mg PO BID Qty: 180 RF: 3 furosemide 40 mg tablet 40 mg PO BID RF: 0 isosorbide mononitrate 30 mg tablet extended release 24 hr 30 mg PO BID RF: 0 naproxen sodium [Aleve] 220 mg Tablet 220 mg PO Q12H RF: 0 Victoza 2-Kg 0.6 mg/0.1 mL (18 mg/3 mL) Pen Injector 1.8 mg SUBCUT DAILY RF: 0 Levemir FlexTouch U-100 Insuln 100 unit/mL (3 mL) insulin pen 660 unit SUBCUT BID RF: 0 Discharge Orders: Discharge ED (Routine); Ordered 03/07/21 Ordered By: Servando Balbuena Referrals: Janine Pal MD [Primary Care Provider] - Discharge Diet: Regular Discharge Activity: Resume usual activity Activity Restrictions/Additional Instructions: Follow-up with medical provider as directed in 5 to 7 days for reevaluation. Continue taking all home medications as prescribed. Stay away from the [facility]. return to the ER or your medical provider if condition worsens. Please read and understand discharge instructions. Thank you for choosing [facility] for your healthcare needs today. Please realize this is an emergency room and that we are providing you with a medical screening exam and this may not be complete and all inclusive of all the testing and or work up that you may need to determine your ailment or severity of your illness. It is very important that you follow up as instructed or that you return to the Emergency Department should you have concerns or if your condition changes or worsens in any way. Coding Level of Care Code ED Patient Relations Liaison for Hugo Garcia Exam Comprehensive
--- NOTE | 2021-03-07 18:04 | CTR_ITS ---
PROCEDURE INFORMATION: Exam: CT Head Without Contrast Exam date and time: 03/07/2021 6:04 PM Age: 65 years old Clinical indication: Dizziness TECHNIQUE: Imaging protocol: Computed tomography of the head without contrast. Total images: 190 Radiation optimization: All CT scans at this facility use at least one of these dose optimization techniques: automated exposure control; mA and/or kV adjustment per patient size (includes targeted exams where dose is matched to clinical indication); or iterative reconstruction. COMPARISON: No relevant prior studies available. RADIATION DOSE METRICS: Total DLP (mGy-cm): 906.41 FINDINGS: Brain: No evidence of active or acute intracranial pathologic process, hemorrhage, or trauma. No visible evidence of diffuse cerebral edema or generalized demyelination. No mass effect. No midline shift. No hyperdense MCA or insular ribbon sign. Cerebral ventricles: No ventriculomegaly. Paranasal sinuses: Visualized sinuses are unremarkable. No fluid levels. Mastoid air cells: Visualized mastoid air cells are well aerated. Bones/joints: Unremarkable. No acute fracture. Soft tissues: Unremarkable. CT/CT head wo con* [id number] IMPRESSION: No evidence of active or acute intracranial pathologic process, hemorrhage, or trauma. Radiation Dose CTDIVOL = (mGy): DLP = 906.41 (mGy-cm)
--- NOTE | 2021-03-07 18:05 | ECG_ITS ---
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: : 1955 Requested By: Servando Balbuena Order Number: [id number] MD: ROSALIE CUMMINS Measurements Intervals [place] Rate: 87 P: 44 AR: 199 QRS: -24 QRSD: 105 T: 73 QT: 371 QTc: 449 Interpretive Statements SINUS RHYTHM BORDERLINE LEFT AXIS DEVIATION [QRS AXIS < -20] NONSPECIFIC T-WAVE ABNORMALITY INTERPRETATION BASED ON A DEFAULT AGE OF 40 YEARS Compared to ECG 12/24/2020 07:33:02 T-wave abnormality now present Sinus tachycardia no longer present Myocardial infarct finding no longer present Electronically Signed On 03-08-2021 14:30:29 TRUCK TECHNICIAN by ROSALIE CUMMINS [id number]
--- NOTE | 2021-03-07 18:11 | XRR_ITS ---
PROCEDURE INFORMATION: Exam: XR Chest Exam date and time: 03/07/2021 6:11 PM Age: 65 years old Clinical indication: Pain; Chest pressure; Additional info: Lightheaded, weakness TECHNIQUE: Imaging protocol: XR of the chest. Views: 1 view. Total images: 1 COMPARISON: CR XR chest 1V portable [id number] 07/20/2019 7:29 PM FINDINGS: Lungs: No visible active interstitial or alveolar airspace disease. Calcified granulomas of antecedent disease. Pleural spaces: Unremarkable. No pleural effusion. No pneumothorax. Heart/Mediastinum: Cardiac structures and configuration within normal limits. Bones/joints: Unremarkable. Soft tissues: Heavy body habitus. XR/XR chest 1V portable [id number] IMPRESSION: Nonacute. Radiation Dose CTDIVOL = (mGy): DLP = (mGy-cm)
[2021-03-07] MEDS: ondansetron 2 mg/ML SDV 2 mL 4 MG IVP (18:42)
[2021-03-07 18:51] LABS: Basophils % 0.5 %; Eosinophils # 0.1 10^3/uL (0.0-0.8); Eosinophils % 1.2 %; Hematocrit 43.9 % (42.0-52.0); Hemoglobin 13.9 g/dL (11.7-16.6); Lymphocytes # 0.8 10^3/uL (0.8-4.8); Lymphocytes % 12.5 %; Mean Corpuscular HGB Conc 31.7 g/dL (30.0-36.0); Mean Corpuscular Hemoglobin 28.6 pg (28.0-34.0); Mean Corpuscular Volume 90.3 fl (80-94); Mean Platelet Volume 11.1 fL (7.4-10.4); Monocytes # 0.4 10^3/uL (0.2-0.9); Monocytes % 6.6 %; Neutrophils # 5.22 10^3/uL (1.8-7.7); Neutrophils % 78.9 %; Nucleated Red Blood Cells % 0 %; Platelet Count 176 10^3/cmm (130-400); Red Blood Count 4.86 10^6/uL (4.1-5.3); Red Cell Distribution Width 13.4 % (12.1-15.1); White Blood Count 6.6 10^3/uL (4.0-10.0)
[2021-03-07 19:14] LABS: Troponin(5th) Baseline 15 ng/L (0-15)
[2021-03-07 19:27] LABS: Alanine Aminotransferase 19 U/L (0-41); Albumin Level 4.4 g/dL (3.5-5.2); Alcohol Level < 10 mg/dL (0-10); Alkaline Phosphatase 112 IU/L (40-130); Aspartate Amino Transferase 17 U/L (0-40); Blood Urea Nitrogen 21 mg/dL (8-23); Calcium 8.8 mg/dL (8.5-10.5); Carbon Dioxide 28 mmol/L (22-29); Chloride 96 mmol/L (98-107); Globulin 2.5 g/dL (1.3-4.6); Glucose 293 mg/dL (65-115); Lipase 41 U/L (13-60); NT Pro B Type Natriuretic Pept 127 pg/mL (0-125); Osmolality Calculated 296 mOsm/kg (285-295); Sodium 136 mmol/L (136-145); Total Bilirubin 0.6 mg/dL (0.15-1.2); Total Protein 6.9 g/dL (6.6-8.7)
[2021-03-07 19:49] LABS: Add Urine Microscopic? YES; Bilirubin Urine Neg (Negative); Blood Urine Neg (Negative); Glucose Urine UA 4+ (Normal); Ketones Urine Negative (Negative); Leukocyte Esterase Urine Negative (Negative); Nitrate Urine Negative (Negative); Protein Urine Trace (Negative); Specific Gravity, Urine 1.005 (1.005-1.030); Urine Appearance Clear (CLEAR); Urine Color Yellow (Yellow); Urobilinogen Urine Norm (Negative); pH Urine 6.5 (5-7)
[2021-03-07 19:50] LABS: Add Urine Culture? No; Bacteria Urine TRACE /hpf; RBC Urine 0-4 /hpf (0-2); Sperm Urine 1+ /hpf; Squamous Epithelial Cell Urine 0-4 /hpf (0-5); WBC Urine 0-4 /hpf (0-5)
[2021-03-07 19:51] LABS: Amphetamines Screen Urine Negative (Negative); Barbiturates Screen Urine Negative (Negative); Benzodiazepines Screen Urine Negative (Negative); Cocaine Screen Urine Negative (Negative); Opiate Screen Urine Negative (Negative); PCP Screen Urine Negative (Negative); THC Screen Urine Positive (Negative)
--- NOTE | 2021-03-07 20:05 | ECG_ITS ---
[facility] Test Date: 2021-03-07 Pat Name: Yaya Astudillo Department: Room: Gender: Male Saddle Stitcher: : 1955 Requested By: Servando Balbuena Order Number: [id number] Armando MD: ROSALIE CUMMINS Measurements Intervals [place] Rate: 80 P: 33 OH: 196 QRS: -29 QRSD: 83 T: 53 QT: 387 QTc: 446 Interpretive Statements SINUS RHYTHM POSSIBLE ANTERIOR MYOCARDIAL INFARCTION , OF INDETERMINATE AGE [30 ms Q WAVE IN V3/V4, OR R < 0.2 mV IN V4] Compared to ECG 03/07/2021 17:27:47 Myocardial infarct finding now present T-wave abnormality no longer present Electronically Signed On 03-08-2021 14:35:06 CHECKROOM ATTENDANT by ROSALIE CUMMINS [id number]
[2021-03-07 21:06] LABS: Troponin 5 2HR 15.71 ng/L (0-15); Troponin 5 2HR Delta 0.71 ABS# (0-10)
[2021-03-07 21:49] VITALS: BP 151/58; PULSE 78; RESP 18; O2SAT 99
== END 2021-03-07 21:51 | disposition home or self-care (01) ==
PROVIDERS: Emergency Provider Physician Assistant; PCP Internal Medicine
DX: F12.920 Cannabis use, unspecified with intoxication, uncomplicated (principal); R11.2 Nausea with vomiting, unspecified; Z87.891 Personal history of nicotine dependence; Z79.82 Long term (current) use of aspirin; E11.9 Type 2 diabetes mellitus without complications; Z79.4 Long term (current) use of insulin; I25.10 Atherosclerotic heart disease of native coronary artery without angina pectoris; I13.10 Hypertensive heart and chronic kidney disease without heart failure, with stage 1 through stage 4 chronic kidney disease, or unspecified chronic kidney disease; N18.9 Chronic kidney disease, unspecified
CPT/HCPCS: 70450; 71045; 80053; 80306; 80307; 81001; 83690; 83880; 84484; 85025; 93005; 96374; 99283; J2405

== ENCOUNTER → 2021-07-01 08:55 | Outpatient (BNVA) | payer MEDICARE, MEDICAID, SELFPAY | PROVIDERS: PCP Nurse Practitioner; Visit Provider Family Medicine | DX: Z20.822 Contact with and (suspected) exposure to COVID-19 (principal) | CPT/HCPCS: 87635 ==

== ENCOUNTER → 2021-10-02 08:25 | Outpatient (BNVA) | payer MEDICARE, MEDICAID, SELFPAY | PROVIDERS: PCP Nurse Practitioner; Referring Provider Nurse Practitioner Family; Visit Provider Specialist | DX: G25.0 Essential tremor (principal); E11.40 Type 2 diabetes mellitus with diabetic neuropathy, unspecified; Z79.4 Long term (current) use of insulin | CPT/HCPCS: 99204 ==

== ENCOUNTER → 2021-10-29 14:30 | Outpatient (BNVA) | payer MEDICARE, MEDICAID, SELFPAY | PROVIDERS: PCP Nurse Practitioner Family; Visit Provider Nurse Practitioner Family | DX: I25.10 Atherosclerotic heart disease of native coronary artery without angina pectoris (principal); I12.9 Hypertensive chronic kidney disease with stage 1 through stage 4 chronic kidney disease, or unspecified chronic kidney disease; N18.9 Chronic kidney disease, unspecified; Z98.61 Coronary angioplasty status; Z87.891 Personal history of nicotine dependence | CPT/HCPCS: 99214 ==

== ENCOUNTER → 2022-01-14 08:05 | Outpatient (BNVA) | payer MEDICARE, MEDICAID, SELFPAY | PROVIDERS: PCP Nurse Practitioner Family; Referring Provider Nurse Practitioner Family; Visit Provider Internal Medicine | DX: E11.40 Type 2 diabetes mellitus with diabetic neuropathy, unspecified (principal); E78.5 Hyperlipidemia, unspecified; Z79.4 Long term (current) use of insulin | CPT/HCPCS: 99204 ==

== ENCOUNTER → 2022-01-28 08:12 | Outpatient (BNVA) | payer MEDICARE, MEDICAID, SELFPAY | PROVIDERS: PCP Nurse Practitioner Family; Visit Provider Specialist | DX: G20 Parkinson's disease (principal); H49.9 Unspecified paralytic strabismus | CPT/HCPCS: 36415; 83516; 83519; 99214 ==

== ENCOUNTER 2022-03-25 15:54 | Outpatient (CLI) | payer MEDICARE, MEDICAID, SELFPAY ==
--- NOTE | 2022-03-25 16:00 | MR_ITS ---
WS: [id number] MRI BRAIN WITH AND WITHOUT CONTRAST HISTORY: E11.40 - Type 2 diabetes mellitus with diabetic neuropathy, tremors, headaches and memory lo ss... COMPARISON: CT head 03/07/2021 TECHNIQUE: Multiplanar imaging performed through the brain with MultiHance 20 ml's IV. Diffusion-weighted imaging is normal. Moderate scattered foci of T2 and FLAIR signal abnormalities pr edominantly in the subcortical white matter of the frontal and parietal lobes. No large area of infar ct. No lacunar infarcts. There is mild atrophy. No susceptibility artifacts or prior lacunar infarcts. Ventricles and extra-axial spaces are normal. Clivus and pituitary gland are normal. Visualized posterior fossa and brainstem are also normal. Postcontrast images are negative for masses or vascular malformations. Dural venous sinuses are normal. Paranasal sinuses: Well aerated with no significant disease. Mastoid air cells: Normal. Calvarium and scalp: Normal. MR/MR head wo/w con [id number] IMPRESSION: 1. No acute infarct, hemorrhage or mass. 2. Moderate T2 and FLAIR signal hyperintensities predominantly within the fron isabel and parietal lobes. Changes can be seen with history of migraines, smoking, hypertension or diabetes.
[2022-03-25] MEDS: gadobenate dimeglumine 20 mL vial IV (16:38)
== END 2022-03-25 15:55 | disposition home or self-care (01) ==
LOC: RAD 15:59
PROVIDERS: PCP Nurse Practitioner Family; Visit Provider Specialist
DX: E11.40 Type 2 diabetes mellitus with diabetic neuropathy, unspecified (principal); G25.0 Essential tremor; E78.5 Hyperlipidemia, unspecified
CPT/HCPCS: 70553; A9577

== ENCOUNTER → 2022-04-16 08:17 | Outpatient (BNVA) | payer MEDICARE, MEDICAID, SELFPAY | PROVIDERS: PCP Nurse Practitioner Family; Visit Provider Internal Medicine | DX: E11.40 Type 2 diabetes mellitus with diabetic neuropathy, unspecified (principal); E78.5 Hyperlipidemia, unspecified | CPT/HCPCS: 99214 ==

== ENCOUNTER → 2022-04-29 14:13 | Outpatient (BNVA) | payer MEDICARE, MEDICAID, SELFPAY | PROVIDERS: PCP Nurse Practitioner Family; Visit Provider Internal Medicine Cardiovascular Disease | DX: I25.10 Atherosclerotic heart disease of native coronary artery without angina pectoris (principal); I12.9 Hypertensive chronic kidney disease with stage 1 through stage 4 chronic kidney disease, or unspecified chronic kidney disease; E11.22 Type 2 diabetes mellitus with diabetic chronic kidney disease; N18.9 Chronic kidney disease, unspecified; Z79.4 Long term (current) use of insulin | CPT/HCPCS: 99214; Q3014 ==

== ENCOUNTER → 2022-04-30 09:48 | Outpatient (BNVA) | payer MEDICARE, MEDICAID, SELFPAY | PROVIDERS: PCP Nurse Practitioner Family; Visit Provider Specialist | DX: G20 Parkinson's disease (principal); H49.9 Unspecified paralytic strabismus; E11.40 Type 2 diabetes mellitus with diabetic neuropathy, unspecified; I25.10 Atherosclerotic heart disease of native coronary artery without angina pectoris; Z79.4 Long term (current) use of insulin; Z79.85 Long-term (current) use of injectable non-insulin antidiabetic drugs | CPT/HCPCS: 99214 ==

== ENCOUNTER → 2022-07-15 08:31 | Outpatient (BNVA) | payer MEDICARE, MEDICAID, SELFPAY | PROVIDERS: PCP Nurse Practitioner Family; Visit Provider Internal Medicine | DX: E11.40 Type 2 diabetes mellitus with diabetic neuropathy, unspecified (principal); E78.5 Hyperlipidemia, unspecified; Z79.4 Long term (current) use of insulin | CPT/HCPCS: 99214 ==

== ENCOUNTER 2022-09-14 16:06 | Emergency (ER) | payer MEDICARE, MEDICAID, SELFPAY ==
[2022-09-14 16:13] VITALS: BP 158/93; PULSE 89; RESP 18; TEMP 36.9; O2SAT 93
[2022-09-14 16:16] VITALS: BP 132/58; PULSE 67; O2SAT 98
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
[2022-09-14] MEDS: tetanus-diphtheria tox (adult) 0.5 mL SDV IM (17:19)
[2022-09-14 17:46] VITALS: PULSE 92; O2SAT 98
[2022-09-14] MEDS: neomycin-poly-bacitracin oint 28 gm 1 APPLIC TOPICAL (17:47)
[2022-09-14 18:09] VITALS: PULSE 97; O2SAT 98
== END 2022-09-14 18:10 | disposition home or self-care (01) ==
PROVIDERS: Emergency Provider Family Medicine; PCP Nurse Practitioner Family
DX: S00.81XA Abrasion of other part of head, initial encounter (principal); S30.811A Abrasion of abdominal wall, initial encounter; S50.811A Abrasion of right forearm, initial encounter; S50.02XA Contusion of left elbow, initial encounter; S09.8XXA Other specified injuries of head, initial encounter; V48.5XXA Car driver injured in noncollision transport accident in traffic accident, initial encounter; Y92.410 Unspecified street and highway as the place of occurrence of the external cause; Z23 Encounter for immunization
CPT/HCPCS: 70450; 73080; 73090; 90714; 99284

== ENCOUNTER 2022-10-09 15:12 | Observation (INO) | payer MEDICARE, MEDICAID, SELFPAY ==
[2022-10-09] VITALS (16 sets, daily range): BP systolic 67–122; BP diastolic 42–71; PULSE 57–69; RESP 14–20; TEMP 36.7; O2SAT 94–99; BMI 33.3
--- NOTE | 2022-10-09 15:34 | XRR_ITS ---
PROCEDURE INFORMATION: Exam: XR Chest Exam date and time: 10/09/2022 4:08 PM Age: 66 years old Clinical indication: Other: Hypotension; Prior surgery; Surgery date: 6+ months; Surgery type: 6 stents(2017) TECHNIQUE: Imaging protocol: Radiologic exam of the chest. Views: 1 view. COMPARISON: CR XR ribs LT mn 3V w CXR1V [id number] 09/16/2022 2:35 PM FINDINGS: Lungs: Unremarkable. No consolidation. Pleural spaces: Unremarkable. No pleural effusion. No pneumothorax. Heart/Mediastinum: Unremarkable. No cardiomegaly. Bones/joints: Unremarkable. XR/XR chest 1V portable [id number] IMPRESSION: No acute findings.
--- NOTE | 2022-10-09 15:35 | ECG_ITS ---
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 Measurements Intervals [place] Rate: 60 P: 41 [place]: 202 QRS: -9 QRSD: 100 T: 52 QT: 397 QTc: 399 Interpretive Statements SINUS RHYTHM INCOMPLETE RIGHT BUNDLE BRANCH BLOCK [90+ ms QRS DURATION, TERMINAL R IN V1/V2, 40+ ms S IN I/aVL/V4/V5/V6] SEPTAL MYOCARDIAL INFARCTION , OF INDETERMINATE AGE [40+ ms Q WAVE IN V1/V2] Compared to ECG 03/07/2021 20:14:50 Incomplete right bundle-branch block now present Myocardial infarct finding still present Electronically Signed On 10-09-2022 19:26:11 CDT by Kimberley Ramirez M.D. [id number]
--- NOTE | 2022-10-09 15:37 | CTR_ITS ---
PROCEDURE INFORMATION: Exam: CT Head Without Contrast Exam date and time: 10/09/2022 4:12 PM Age: 66 years old Clinical indication: Injury or trauma; Fall; Blunt trauma (contusions or hematomas); Other: Confusion; Additional info: Fall confusion TECHNIQUE: Imaging protocol: Computed tomography of the head without contrast. Radiation optimization: All CT scans at this facility use at least one of these dose optimization techniques: automated exposure control; mA and/or kV adjustment per patient size (includes targeted exams where dose is matched to clinical indication); or iterative reconstruction. REPORTING DATA: Count of CT and Cardiac NM exams in prior 12 months: This patient has received [address] and 0 known cardiac nuclear medicine studies in the 12 months prior to the current study. COMPARISON: CT head wo con* [id number] 09/14/2022 4:43 PM RADIATION DOSE METRICS: Total DLP (mGy-cm): 1339.28 FINDINGS: Brain: No hemorrhage. No edema. Moderate diffuse cerebral atrophy. No significant white matter disease. No mass effect. Cerebral ventricles: No ventriculomegaly. Paranasal sinuses: Visualized sinuses are unremarkable. No fluid levels. Mastoid air cells: Visualized mastoid air cells are well aerated. Bones/joints: Unremarkable. No acute fracture. Soft tissues: Unremarkable. CT/CT head wo con* [id number] IMPRESSION: No acute intracranial abnormality.
--- NOTE | 2022-10-09 15:37 | W.ED.HA ---
HPI - Headache General: Chief Complaint: Headache Stated Complaint: dizzy, headache,vomiting, nausea Time Seen by Provider: 10/09/22 15:29 History of Present Illness: Presents to the ER complaining of headache dizziness and nausea vomiting and low blood pressure. Patient said this all been going on for about a week. Patient fell last night and was confused afterwards. Patient denies hitting head. In triage blood pressure noted to be 67/42 patient diaphoretic with generalized weakness. Patient states every time he tries to eat or drink anything that just comes right back up. Patient states nothing has been known to make this worse or better. But overall it is gotten worse on its own. Review of Systems General: Reports: 10 or more systems reviewed and unremarkable except in HPI and below PFSH ED PFSH: Medical History ASHD (arteriosclerotic heart disease) CKD (chronic kidney disease) (~10/12/20) Diabetes Diabetic foot ulcer HTN (hypertension) Hyperlipidemia Myocardial infarction CÉSAR (obstructive sleep apnea) Surgical History S/P angioplasty with stent S/P eye surgery Status post amputation of toe Status post colonoscopy (12/24/20) sigmoid polyp Family History Mother CAD (coronary artery disease) Diabetes Social History Smoking and tobacco status: never smoked Alcohol intake: former Substance/Drug Use: never Lives independently: Yes Household members: other Details: DOG Marital status: service: No Current occupational status: disabled 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 Physical Exam Const: COMMON NORMALS: no acute distress, average body habitus, patient oriented x3, no limitations, healthy appearing, alert and well nourished HENMT: COMMON NORMALS: normocephalic, atraumatic, hearing grossly normal bilaterally, external ears normal, Normal external nose present and moist oral mucous membranes HEAD & SCALP: normocephalic and atraumatic NOSE: Normal external nose present EXTERNAL EAR: Yes external ears normal Eye: COMMON NORMALS: Equal, round and reactive pupils present, EOMs intact bilaterally, conjunctivae normal and no scleral icterus CONJUNCTIVA: Yes conjunctivae normal PUPIL: Yes Equal, round and reactive pupils present Neck/C-Spine: COMMON NORMALS: full ROM, no lymphadenopathy, supple, no meningeal signs, no JVD and Thyroid normal THYROID: Thyroid normal Chest: COMMONS NORMALS: normal inspection of the chest and normal palpation of entire chest wall Resp: COMMON NORMALS: normal respiratory effort, No retractions, No use of accessory muscles and clear to auscultation bilaterally AUSCULTATION: clear to auscultation bilaterally Cardio: COMMON NORMALS: no JVD GI: COMMON NORMALS: Normal to inspection, nondistended, normoactive bowel sounds present, Soft to palpation, non-tender, No hepatosplenomegaly present and no masses PALPATION: Yes Soft to palpation and Yes No hepatosplenomegaly present : COMMON NORMALS: Yes no CVA tenderness BLADDER/KIDNEY EXAM: Yes no CVA tenderness Back/Pelvis: COMMON NORMALS: no CVA tenderness Neuro: COMMON NORMALS: patient oriented x3 SENSORIUM/ORIENTATION: Yes alert MENINGEAL SIGNS: Yes no meningeal signs Skin: NARRATIVE SKIN EXAM: Diaphoretic Course Vital Signs: Vital signs: Vital Signs Temperature 98 F 10/11/22 13:59 Pulse Rate 67 10/11/22 13:59 Respiratory Rate 16 10/11/22 13:59 Blood Pressure 153/81 10/11/22 13:59 Pulse Oximetry 97 10/11/22 13:59 Oxygen Delivery Me thod Room Air 10/11/22 04:00 MDM - Headache Medical Decision Making Patient presents to the ER with complaints of headache dizziness nausea vomiting low blood pressure. Patient states this all been going on for about a week. Patient had a fall last night and is confused afterwards. Blood pressure in triage noted to be 67/42 patient was diaphoretic with generalized weakness. Lab work was obtained and revealed white blood cell count of 14 elevated BUN/creatinine of 73 and 4.5, UA showed 2+ leukocyte esterase and 15-25 white blood cells. Chest x-ray showed no acute findings head CT showed no acute findings in abdomen pelvis CT showed no acute findings other than possible left seventh rib fracture. Patient will be placed in observation for further evaluation and treatment. Dr. Pratt was consulted and she agreed for this. Differential Diagnosis Likely headache; Unlikely migraine, tension headache, subarachnoid hemorrhage, meningitis, sinusitis or postconcussion syndrome Medical Records I reviewed the patient's medical records. Lab Data I reviewed the patient's lab results. 10/11/22 04:46 10/11/22 04:46 Radiology Impressions Chest X-Ray 10/09/22 15:34 IMPRESSION: No acute findings. Head CT 10/09/22 15:37 IMPRESSION: No acute intracranial abnormality. Abdomen/Pelvis CT 10/09/22 17:43 IMPRESSION: 1. No acute findings in the abdomen or pelvis. 2. Sludge and possible small stones in the gallbladder. 3. Acute appearing left 7th rib fracture. Laboratory Results WBC 14.1 10^3/uL (4.0-10.0) H 10/09/22 15:50 RBC 4.62 10^6/uL (4.1-5.3) 10/09/22 15:50 Hgb 13.1 g/dL (11.7-16.6) 10/09/22 15:50 Hct 40.8 % (42.0-52.0) L 10/09/22 15:50 MCV 88.3 fl (80-94) 10/09/22 15:50 MCH 28.4 pg (28.0-34.0) 10/09/22 15:50 MCHC 32.1 g/dL (30.0-36.0) 10/09/22 15:50 RDW 14.3 % (12.1-15.1) 10/09/22 15:50 Plt Count 217 10^3/cmm (130-400) 10/09/22 15:50 MPV 11.5 fL (7.4-10.4) H 10/09/22 15:50 Neut % (Auto) 81.7 % 10/09/22 15:50 Lymph % (Auto) 8.1 % 10/09/22 15:50 Whitman % (Auto) 8.5 % 10/09/22 15:50 Eos % (Auto) 0.9 % 10/09/22 15:50 Baso % (Auto) 0.4 % 10/09/22 15:50 Neut # (Auto) 11.51 10^3/uL (1.8-7.7) H 10/09/22 15:50 Lymph # (Auto) 1.1 10^3/uL (0.8-4.8) 10/09/22 15:50 Whitman # (Auto) 1.2 10^3/uL (0.2-0.9) H 10/09/22 15:50 Eos # (Auto) 0.1 10^3/uL (0.0-0.8) 10/09/22 15:50 Baso # (Auto) 0.1 10^3/uL (0.0-0.1) 10/09/22 15:50 Nucleated RBC % (auto) 0 % 10/09/22 15:50 Nucleated RBCs # 0.0 /100WBC 10/09/22 15:50 PT 13.20 SECONDS (12.1-14.9) 10/09/22 15:50 INR 0.97 (0.8-1.2) 10/09/22 15:50 Sodium 134 mmol/L (136-145) L 10/09/22 15:50 Potassium 4.4 mmol/L (3.5-5.1) 10/09/22 15:50 Chloride 100 mmol/L (98-107) 10/09/22 15:50 Carbon Dioxide 16 mmol/L (22-29) L 10/09/22 15:50 Anion Gap 22.4 (5-19) H 10/09/22 15:50 BUN 73 mg/dL (8-23) H 10/09/22 15:50 Creatinine 4.5 mg/dL (0.7-1.2) H 10/09/22 15:50 GFR Calculation 13.2 mL/min (90-130) L 10/09/22 15:50 Glucose 131 mg/dL (65-115) H 10/09/22 15:50 Calculated Osmolality 301 mOsm/kg (285-295) H 10/09/22 15:50 Calcium 8.6 mg/dL (8.5-10.5) 10/09/22 15:50 Magnesium 2.6 mg/dL (1.7-2.3) H 10/09/22 15:50 Total Bilirubin 0.5 mg/dL (0.15-1.2) 10/09/22 15:50 AST 11 U/L (0-40) 10/09/22 15:50 ALT < 5 U/L (0-41) 10/09/22 15:50 Alkaline Phosphatase 135 U/L (40-130) H 10/09/22 15:50 Troponin T Baseline 33 ng/L (0-15) H 10/09/22 15:50 Troponin T 120 Minute 32.10 ng/L (0-15) H 10/09/22 17:28 Delta Troponin T -0.90 ABS# (0-10) L 10/09/22 17:28 Troponin T Hi Sens 6Hr 24.52 ng/L (0-15) H 10/09/22 21:30 Troponin T Hi Sens 6Hr Delta -8.48 ng/L (0-12) L 10/09/22 21:30 Total Protein 6.3 g/dL (6.6-8.7) L 10/09/22 15:50 Albumin 4.1 g/dL (3.5-5.2) 10/09/22 15:50 Globulin 2.2 g/dL (1.3-4.6) 10/09/22 15:50 Urine Color Yellow (Yellow) 10/09/22 18:44 Urine Appearance Clear (CLEAR) 10/09/22 18:44 Urine pH 5 (5-7) 10/09/22 18:44 Ur Specific [place] 1.015 (1.005-1.030) 10/09/22 18:44 Urine Protein Neg (Negative) 10/09/22 18:44 Urine Glucose (UA) 4+ (Normal) H 10/09/22 18:44 Urine Ketones Negative (Negative) 10/09/22 18:44 Urine Blood Neg (Negative) 10/09/22 18:44 Urine Nitrate Negative (Negative) 10/09/22 18:44 Urine Bilirubin 1+ (Negative) H 10/09/22 18:44 Urine Urobilinogen 1 mg/dL (Negative) H 10/09/22 18:44 Ur Leukocyte Esterase 2+ (Negative) H 10/09/22 18:44 Urine RBC 0-4 /hpf (0-2) H 10/09/22 18:44 Urine WBC 15-25 /hpf (0-5) H 10/09/22 18:44 Ur Squamous Epith Cells 0-4 /hpf (0-5) H 10/09/22 18:44 Amorphous Sediment Not Reportable 10/09/22 18:44 Urine Bacteria Trace /hpf (NONE) 10/09/22 18:44 Hyaline Casts 10-15 /lpf H 10/09/22 18:44 Urine Mucus 3+ /hpf 10/09/22 18:44 Urine Yeast 1+ /hpf H 10/09/22 18:44 EKG Data EKG 1: I personally reviewed and interpreted this EKG as follows: EKG interpretation date: 10/09/22 EKG interpretation time: 15:44 Prior EKG tracings: not available for review Interpretation: EKG showed ventricular rate 60 beats a minute, NE interval 202, QRS duration 100, QTc 398, sinus rhythm with incomplete right bundle branch block, septal myocardial infarct of indeterminate age with Q waves in V1 and V2 EKG 2: I personally reviewed and interpreted this EKG as follows: EKG interpretation date: 10/09/22 EKG interpretation time: 17:48 Prior EKG tracings: available for review Interpretation: EKG showed ventricular rate of 59 beats minute, NE interval 212, QRS duration 99, QTc of 405, sinus bradycardia with a first-degree AV block, incomplete right bundle branch block, EKG 3: I personally reviewed and interpreted this EKG as follows: EKG interpretation date: 10/09/22 EKG interpretation time: 21:37 Prior EKG tracings: available for review Interpretation: EKG showed ventricular rhythm of sinus with a rate of 64 bpm, NE interval 203, QRS duration 100, QTc of 414, sinus rhythm with anteroseptal myocardial infarction of indeterminate age with Q waves in V1 through V4. Discharge Plan Discharge Patient Disposition: Placed in Observation Admit Provider: Silvestre Downs Clinical Impression: Urinary retention Acute renal failure Qualifiers: Acute renal failure type: unspecified Qualified Code(s): N17.9 - Acute kidney failure, unspecified Urinary tract infection Qualifiers: Urinary tract infection type: acute cystitis Hematuria presence: without hematuria Qualified Code(s): N30.00 - Acute cystitis without hematuria Discharge Diet: Low Fat Coding Level of Care Code ED [employer] P[employer] Station Supervisor for Chg Radha
[2022-10-09] MEDS: sodium chloride 0.9% 1,000 ML 999 ML IV ×2 (15:57→17:59)
[2022-10-09] MEDS: ondansetron 2 mg/ML SDV 2 mL 8 MG IVP (15:58)
[2022-10-09 16:00] LABS: Basophils # 0.1 10^3/uL (0.0-0.1); Basophils % 0.4 %; Eosinophils # 0.1 10^3/uL (0.0-0.8); Eosinophils % 0.9 %; Hematocrit 40.8 % (42.0-52.0); Hemoglobin 13.1 g/dL (11.7-16.6); Lymphocytes # 1.1 10^3/uL (0.8-4.8); Lymphocytes % 8.1 %; Mean Corpuscular HGB Conc 32.1 g/dL (30.0-36.0); Mean Corpuscular Hemoglobin 28.4 pg (28.0-34.0); Mean Corpuscular Volume 88.3 fl (80-94); Mean Platelet Volume 11.5 fL (7.4-10.4); Monocytes # 1.2 10^3/uL (0.2-0.9); Monocytes % 8.5 %; Neutrophils # 11.51 10^3/uL (1.8-7.7); Neutrophils % 81.7 %; Nucleated Red Blood Cells % 0 %; Platelet Count 217 10^3/cmm (130-400); Red Blood Count 4.62 10^6/uL (4.1-5.3); Red Cell Distribution Width 14.3 % (12.1-15.1); White Blood Count 14.1 10^3/uL (4.0-10.0)
[2022-10-09 16:11] LABS: INR 0.97 (0.8-1.2)
[2022-10-09 16:19] LABS: Alanine Aminotransferase < 5 U/L (0-41); Albumin Level 4.1 g/dL (3.5-5.2); Alkaline Phosphatase 135 U/L (40-130); Aspartate Amino Transferase 11 U/L (0-40); Blood Urea Nitrogen 73 mg/dL (8-23); Calcium 8.6 mg/dL (8.5-10.5); Carbon Dioxide 16 mmol/L (22-29); Chloride 100 mmol/L (98-107); Globulin 2.2 g/dL (1.3-4.6); Glomerular Filtration Rate 13.2 mL/min (90-130); Glucose 131 mg/dL (65-115); Magnesium 2.6 mg/dL (1.7-2.3); Osmolality Calculated 301 mOsm/kg (285-295); Sodium 134 mmol/L (136-145); Total Bilirubin 0.5 mg/dL (0.15-1.2); Total Protein 6.3 g/dL (6.6-8.7)
[2022-10-09 16:23] LABS: Anion Gap 22.4 (5-19); Potassium 4.4 mmol/L (3.5-5.1)
[2022-10-09 16:38] LABS: Troponin(5th) Baseline 33 ng/L (0-15)
--- NOTE | 2022-10-09 17:43 | CTR_ITS ---
PROCEDURE INFORMATION: Exam: CT Abdomen And Pelvis Without Contrast Exam date and time: 10/09/2022 7:08 PM Age: 66 years old Clinical indication: Nausea and vomiting; Additional info: Acute renal failure, n/v/weakness, TECHNIQUE: Imaging protocol: Computed tomography of the abdomen and pelvis without contrast. Radiation optimization: All CT scans at this facility use at least one of these dose optimization techniques: automated exposure control; mA and/or kV adjustment per patient size (includes targeted exams where dose is matched to clinical indication); or iterative reconstruction. REPORTING DATA: Count of CT and Cardiac NM exams in prior 12 months: This patient has received [address] and 0 known cardiac nuclear medicine studies in the 12 months prior to the current study. COMPARISON: [place] [id number] 12/24/2017 1:05 AM RADIATION DOSE METRICS: Total DLP (mGy-cm): 981.23 FINDINGS: Liver: Normal. No mass. Gallbladder and bile ducts: Layering sludge and possible tiny stones in the gallbladder. No wall thickening. The bile ducts are normal. Pancreas: Normal. No ductal dilation. Spleen: Calcified granulomas in the spleen. Adrenal glands: Normal. No mass. Kidneys and ureters: Normal. No hydronephrosis. Stomach and bowel: Unremarkable. No obstruction. No mucosal thickening. Appendix: The appendix is visualized and is normal. Intraperitoneal space: Unremarkable. No free air. No significant fluid collection. Vasculature: Mild arterial calcifications. No aneurysm. Lymph nodes: Unremarkable. No enlarged lymph nodes. Urinary bladder: Unremarkable as visualized. Reproductive: Unremarkable as visualized. Bones/joints: Mildly displaced acute appearing left 7th rib fracture. Mild degenerative changes of the spine. No compression fracture. Soft tissues: Fat containing inguinal hernias, right greater than left. Chronic subcutaneous fat stranding in the mid and lower anterior abdominal wall with mild skin thickening. Small fat containing umbilical hernia. CT/CT abdomen pelvis wo con [id number] IMPRESSION: 1. No acute findings in the abdomen or pelvis. 2. Sludge and possible small stones in the gallbladder. 3. Acute appearing left 7th rib fracture.
--- NOTE | 2022-10-09 17:48 | ECG_ITS ---
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 Measurements Intervals [place] Rate: 59 P: 41 CT: 212 QRS: -13 QRSD: 99 T: 42 QT: 405 QTc: 404 Interpretive Statements SINUS BRADYCARDIA WITH FIRST DEGREE AV BLOCK INCOMPLETE RIGHT BUNDLE BRANCH BLOCK [90+ ms QRS DURATION, TERMINAL R IN V1/V2, 40+ ms S IN I/aVL/V4/V5/V6] ANTEROSEPTAL MYOCARDIAL INFARCTION , OF INDETERMINATE AGE [40+ ms Q WAVE IN V1-V4] Compared to ECG 10/09/2022 15:44:42 First degree AV block now present Sinus rhythm no longer present Myocardial infarct finding still present Electronically Signed On 10-09-2022 19:27:24 CDT by Kimberley Ramirez M.D. [id number]
--- NOTE | 2022-10-09 19:00 | PC.NURSE ---
pt on bedside patient monitor
[2022-10-09 19:13] LABS: Urine Appearance Clear (CLEAR); Urine Color Yellow (Yellow); pH Urine 5 (5-7)
[2022-10-09 19:14] LABS: Add Urine Microscopic? YES; Bacteria Urine TRACE /hpf; Bilirubin Urine 1+ (Negative); Blood Urine Neg (Negative); Glucose Urine UA 4+ (Normal); Ketones Urine Negative (Negative); Leukocyte Esterase Urine 2+ (Negative); Mucus Urine 3+ /hpf; Nitrate Urine Negative (Negative); Protein Urine Neg (Negative); RBC Urine 0-4 /hpf (0-2); Specific Gravity, Urine 1.015 (1.005-1.030); Squamous Epithelial Cell Urine 0-4 /hpf (0-5); Urobilinogen Urine 1 mg/dL (Negative); WBC Urine 15-25 /hpf (0-5)
[2022-10-09 19:15] LABS: Add Urine Culture? Yes
--- NOTE | 2022-10-09 21:37 | ECG_ITS ---
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 Measurements Intervals [place] Rate: 64 P: 42 AK: 203 QRS: -15 QRSD: 100 T: 37 QT: 405 QTc: 419 Interpretive Statements SINUS RHYTHM ANTEROSEPTAL MYOCARDIAL INFARCTION , OF INDETERMINATE AGE [40+ ms Q WAVE IN V1-V4] Compared to ECG 10/09/2022 17:48:44 Sinus bradycardia no longer present First degree AV block no longer present Incomplete right bundle-branch block no longer present Myocardial infarct finding still present Electronically Signed On 10-10-2022 11:32:26 CDT by Kimberley Ramirez M.D. [id number]
[2022-10-09] MEDS: cefTRIAXone 1,000 MG in sodium chloride 0.9% (plus) 50 ML 100 MG IV (21:42)
--- NOTE | 2022-10-09 21:57 | P.HP_ITS ---
Providers/Chief Complaint Admitting Physician: Yareli Primary Care Provider: CHRIS Summers Chief Complaint: dizzy, headache,vomiting, nausea History of Present Illness Yaya Astudillo is a 66 year old male with past medical history of diabetes CAD CHF hypertension presents with nausea vomiting weakness and headache. Work-up in the ER shows him acute on chronic renal failure. Patient states his most recent creatinine was about 3. Our lab shows the highest his creatinines been as 2.8 in July 2019. He states that now that we discussed that he has not been able to urinate over the day. He said the headache is really what brought him in and weakness and malaise. In the ED they placed a Salazar catheter and obtain almost 1 L immediately. Patient has a steam gigger from [place] Dr. Marie that does visit out more local occasionally his next visit is in November. Review of Systems Const: Denies: fever(s) or chills Eyes: Denies: change in vision ENMT: Denies: throat pain or nasal congestion Card: Denies: chest pain or palpitations Resp: Denies: dyspnea or productive cough GI: Reports: nausea, vomiting, diarrhea (Pt admits to accidents) and constipation; Denies: abdominal pain : Reports: difficulty urinating and nocturia; Denies: dysuria Musc: Denies: back pain or extremity pain Skin/Breast: Denies: rash or lesions Neuro: Denies: dizziness Psych: Denies: anxiety or depression Endo: Denies: polyuria or polydipsia Enrrique/Lymph: Denies: easy bruising or easy bleeding Medications/Allergies Home Medications Medication Instructions Recorded Confirmed Last Taken Type amlodipine 10 mg tablet 10 mg PO QDAY 05/10/19 10/09/22 10/09/22 History aspirin 81 mg tablet,delayed 81 mg PO DAILY 05/10/19 10/09/22 10/09/22 History release (Adult Low Dose Aspirin) pantoprazole 40 mg tablet,delayed 40 mg PO DAILY 05/10/19 10/09/22 10/09/22 History release furosemide 40 mg tablet 40 mg PO BID 07/20/19 10/09/22 10/09/22 History liraglutide 0.6 mg/0.1 mL (18 mg/3 1.8 mg SUBCUT DAILY 07/20/19 10/09/22 10/09/22 History mL) subcutaneous pen injector (Victoza 2-Kg) clopidogrel 75 mg tablet 75 mg PO DAILY 3 months #90 tabs 11/10/19 10/09/22 10/09/22 Rx metoprolol tartrate 50 mg tablet 50 mg PO BID #180 tabs 11/10/19 10/09/22 10/09/22 Rx primidone 50 mg tablet 50 mg PO DAILY #30 tabs 10/09/21 10/09/22 10/08/22 Rx flash glucose scanning reader #1 ea 01/28/22 10/09/22 Unknown Rx (FreeStyle Regina 2 [place]) flash glucose sensor (FreeStyle #1 ea 01/28/22 10/09/22 Unknown Rx Regina 2 Sensor kit) insulin lispro 100 unit/mL 20 unit (0.2 mL) SUBCUT .TIDAC #15 01/28/22 07/15/22 Unknown Rx subcutaneous pen (Humalog KwikPen mL (U-100) Insulin) gabapentin 100 mg capsule 100 mg PO BID 04/16/22 10/09/22 10/09/22 History insulin detemir U-100 100 unit/mL 100 unit SUBCUT DAILY 04/29/22 07/15/22 Unknown History (3 mL) subcutaneous pen (Levemir FlexTouch U-100 Insulin) isosorbide mononitrate 30 mg 30 mg PO DAILY 04/29/22 10/09/22 10/09/22 History tablet,extended release 24 hr naproxen sodium 220 mg tablet 220 mg PO Q12H PRN Pain 04/29/22 10/09/22 Unknown History (Aleve) carbidopa 25 mg-levodopa 100 mg 1 tab PO TID 90 days #270 tabs 04/30/22 10/09/22 10/09/22 Rx tablet lisinopril 40 mg tablet 20 mg PO DAILY 07/15/22 10/09/22 10/09/22 History mupirocin 2 % topical ointment 1 applic topical DAILY 10/09/22 10/09/22 Unknown History Allergies Allergy/AdvReac Type Severity Reaction Status Date / Time No Known Allergies Allergy Verified 10/09/22 16:36 PFSH Acute PFSH: Medical History ASHD (arteriosclerotic heart disease) CKD (chronic kidney disease) (~10/12/20) Diabetes Diabetic foot ulcer HTN (hypertension) Hyperlipidemia Myocardial infarction CÉSAR (obstructive sleep apnea) Surgical History S/P angioplasty with stent S/P eye surgery Status post amputation of toe Status post colonoscopy (12/24/20) sigmoid polyp Family History Mother CAD (coronary artery disease) Diabetes Social History Smoking and tobacco status: never smoked Alcohol intake: former Substance/Drug Use: never Lives independently: Yes Household members: other Details: DOG Marital status: service: No Current occupational status: disabled Previous occupational history: [employer] Vitals/I&O/Wt Last Vital Signs Temp 98.0 F 10/09/22 15:18 Pulse 63 10/09/22 21:00 Resp 14 10/09/22 20:00 BP 122/57 10/09/22 21:00 Pulse Ox 98 10/09/22 21:00 O2 Del Method Room Air 10/09/22 21:00 10/09/22 10/09/22 10/09/22 06:59 14:59 22:59 Intake Total 1999 Balance 1999 Weight last 48 hrs Weight 99.337 kg Physical Exam Narrative: Patient is lying comfortably in bed. He states he is already feeling better. Neurologic: Patient is alert to person place time and situation there is no focal deficits HEENT: Head is normocephalic atraumatic pupils equal round and reactive to light and accommodation extraocular ocular muscles are intact there appears to be a mild scleral icterus. (He states that that is his normal) Heart: Regular rate and rhythm normal S1-S2 without murmurs clicks gallops or rubs Lungs: Clear to auscultation without wheezes rales or rhonchi Abdomen: Protuberant, decreased bowel sounds, nontender, nondistended, no hepatosplenomegaly noted normal male with Salazar in place Back no CVA tenderness Extremities no clubbing cyanosis or edema Urinary Catheter Management: Salazar: Cath Placed During This Visit: yes Urinary Catheter Date of Insertion: 10/09/22 Urinary Catheter Time of Insertion: 20:29 Data 10/09/22 15:50 10/09/22 15:50 Micro: Microbiology 10/09/22 21:30 Blood Culture - Preliminary Blood SPECIMEN COLLECTED 10/09/22 21:25 Blood Culture - Preliminary Blood SPECIMEN COLLECTED CXR: My impression: No active cardiopulmonary disease Radiologist's impression: No acute findings CT Abd/Pel: Radiologist's impression: IMPRESSION: 1. No acute findings in the abdomen or pelvis. 2. Sludge and possible small stones in the gallbladder. 3. Acute appearing left 7th rib fracture.? ? CT Head: My impression: Negative head CT Radiologist's impression: No acute findings A&P Assessment and plan (1) Acute on chronic renal failure: BUN and creatinine are 73/4.5. It appears to be secondary to postrenal obstruction secondary to urinary retention and UTI. Patient will be treated with ceftriaxone which was started in the emergency room, and aggressive fluid hydration. And Salazar catheter. All nephrotoxic agents were discontinued these include Aleve, aspirin, Lasix, naproxen, Protonix. (2) Urinary retention: Salazar catheter for now and add Flomax (3) Urinary tract infection: Rocephin Qualifiers: Hematuria presence: without hematuria Urinary tract infection type: acute cystitis Qualified Code(s): N30.00 - Acute cystitis without hematuria (4) Diabetic neuropathy associated with type 2 diabetes mellitus: Sinew home meds for diabetes (5) Parkinson disease: Continue home meds for Parkinson's Plan Baseline serum creatinine is likely between 2.5 and 3, Per patient self?report in our laboratory documentation. I suspect we will see marked improvement with Salazar catheter in place and dose of Rocephin. It is likely he can return home tomorrow or the following day. Attestations Medical Necessity Statement*: Patient is placed in observation status anticipate quick return to baseline renal function. Coding Level of Care Code Acute Code for g Fwd Diagnoses Acute on chronic renal failure N17.9; N18.9 Urinary retention R33.9 Urinary tract infection N30.00 Hematuria presence: without hematuria Urinary tract infection type: acute cystitis Diabetic neuropathy associated with type 2 diabetes mellitus E11.40 Parkinson disease G20
[2022-10-09 22:01] LABS: Troponin 5 6HR 24.52 ng/L (0-15)
[2022-10-09 22:02] LABS: Troponin 5 6HR Delta -8.48 ng/L (0-12)
[2022-10-09] MEDS: heparin 5,000 unit/mL INJ 1 mL 5000 UNIT SUBCUT (22:34)
[2022-10-09] MEDS: tamsulosin 0.4 mg Capsule PO (22:34)
[2022-10-09] MEDS: sodium chloride 0.9% 1,000 ML 150 ML IV (22:34)
[2022-10-10] VITALS: BP 108/67; PULSE 71; RESP 16; TEMP 36.4; O2SAT 95
[2022-10-10 04:00] VITALS: BP 98/59; PULSE 72; RESP 16; TEMP 36.6; O2SAT 95
[2022-10-10 05:14] LABS: Blood Urea Nitrogen 64 mg/dL (8-23); Calcium 8.2 mg/dL (8.5-10.5); Carbon Dioxide 17 mmol/L (22-29); Chloride 108 mmol/L (98-107); Glomerular Filtration Rate 27.2 mL/min (90-130); Glucose 116 mg/dL (65-115); Osmolality Calculated 305 mOsm/kg (285-295); Sodium 138 mmol/L (136-145)
[2022-10-10 05:17] LABS: Anion Gap 17.3 (5-19); Potassium 4.3 mmol/L (3.5-5.1)
[2022-10-10] MEDS: sodium chloride 0.9% 1,000 ML 150 ML IV ×2 (05:32→16:34)
[2022-10-10 08:00] VITALS: BP 107/67; PULSE 77; RESP 18; TEMP 36.8; O2SAT 94
--- NOTE | 2022-10-10 08:37 | PC.PHAR ---
MEDICATIONS VERIFIED WITH PT AND PTS DAUGHTER IN [facility] AND [facility]- PT STS HE IS ON A THIRD INSULIN BUT UNABLE TO TELL ME WHAT KIND- CALLED ALL OF THE PTS PHARMACIES AND THE CLINIC AND THEY COULD NOT VERIFY A THIRD INSULIN
--- NOTE | 2022-10-10 08:49 | P.PN_ITS ---
Subjective Subjective: This morning patient endorsing feeling better no active nausea vomiting or headache Salazar catheter draining clear urine We will add tamsulosin and finasteride Patient lives alone [id number]-aw-oyo lives closer by Vitals/I&O/Wt Last Vital Signs Temp 97.9 F 10/10/22 04:00 Pulse 72 10/10/22 04:00 Resp 16 10/10/22 04:00 BP 98/59 10/10/22 04:00 Pulse Ox 95 10/10/22 04:00 O2 Del Method Room Air 10/10/22 04:00 10/09/22 10/10/22 10/10/22 22:59 06:59 14:59 Intake Total 1999 1000 / 3000 360 / 360 Output Total 2250 / 2250 Balance 1999 -1250 / 750 360 / 360 Weight last 48 hrs Weight 99.337 kg Physical Exam Narrative: Awake and alert GCS 15 abdomen soft S1, S2 Doing well on room air Salazar catheter draining clear urine Pleasant and cooperative Appears stated age No signs of dehydration Urinary Catheter Management: Salazar: Cath Placed During This Visit: yes Reason for Continuing Indwelling Catheter: Acute Urinary Retention or Obstruction Urinary Catheter Date of Insertion: 10/09/22 Urinary Catheter Time of Insertion: 20:29 Data 10/09/22 15:50 10/10/22 04:18 Micro: Microbiology 10/09/22 21:30 Blood Culture - Preliminary Blood SPECIMEN COLLECTED 10/09/22 21:25 Blood Culture - Preliminary Blood SPECIMEN COLLECTED A&P Assessment and plan (1) Acute on chronic renal failure: (2) Urinary retention: (3) Urinary tract infection: Qualifiers: Hematuria presence: without hematuria Urinary tract infection type: acute cystitis Qualified Code(s): N30.00 - Acute cystitis without hematuria (4) Parkinson disease: (5) Diabetic neuropathy associated with type 2 diabetes mellitus: (6) Essential tremor: (7) HTN (hypertension): (8) Obesity: (9) Diabetes: Plan Acute on chronic kidney disease Related to urine retention Creatinine improving after placement of Salazar catheter Plan to watch him for next 24 hours Add tamsulosin and finasteride Check PSA Patient will need outpatient referral to urologist Continue antibiotics for UTI Patient is denying perineal pain or discharge Suspicion for prostatitis low at this point Hold antihypertensive regimen this morning for low blood pressure Continue IV fluids at 75 mill per hour DVT prophylaxis with heparin Consistent carb diet Continue Parkinson's medications. Attestations Medical Necessity Statement*: Discharge tomorrow talbert Diagnoses Acute on chronic renal failure N17.9; N18.9 Urinary retention R33.9 Urinary tract infection N30.00 Hematuria presence: without hematuria Urinary tract infection type: acute cystitis Parkinson disease G20 Diabetic neuropathy associated with type 2 diabetes mellitus E11.40 Essential tremor G25.0 HTN (hypertension) I10 Obesity E66.9 Diabetes E11.9
[2022-10-10] MEDS: primidone 50 mg Tablet PO (09:35)
[2022-10-10] MEDS: isosorbide mononitrate ER 30 mg Tablet PO (09:35)
[2022-10-10] MEDS: metoprolol tartrate 50 mg Tablet PO ×2 (09:35→17:33)
[2022-10-10] MEDS: clopidogrel 75 mg Tablet PO (09:35)
[2022-10-10] MEDS: gabapentin 100 mg Capsule PO ×2 (09:35→17:33)
[2022-10-10] MEDS: tamsulosin 0.4 mg Capsule PO (09:37)
[2022-10-10] MEDS: carbidopa-levodopa 25-100mg Tablet 1 EACH PO ×3 (09:38→21:57)
[2022-10-10] MEDS: finasteride 5 mg Tablet PO (09:38)
[2022-10-10] MEDS: insulin glargine 100 units/1 mL 80 UNIT SUBCUT (09:41)
[2022-10-10] MEDS: mupirocin oint 22 gm 1 APPLIC TOPICAL (09:41)
[2022-10-10] MEDS: heparin 5,000 unit/mL INJ 1 mL 5000 UNIT SUBCUT ×2 (10:50→21:55)
[2022-10-10 11:28] VITALS: BP 110/58; PULSE 78; RESP 18; TEMP 36.4; O2SAT 94
[2022-10-10 15:24] VITALS: BP 123/69; PULSE 70; RESP 18; TEMP 36.6; O2SAT 96
[2022-10-10 20:00] VITALS: BP 126/73; PULSE 71; RESP 17; TEMP 36.9; O2SAT 98
[2022-10-10] MEDS: cefTRIAXone 1,000 MG in sodium chloride 0.9% (plus) 50 ML 100 MG IV (21:56)
[2022-10-11] VITALS: BP 122/74; PULSE 67; RESP 17; TEMP 36.7; O2SAT 97
[2022-10-11 04:00] VITALS: BP 127/71; PULSE 67; RESP 17; TEMP 36.9; O2SAT 95
[2022-10-11] MEDS: sodium chloride 0.9% 1,000 ML 75 ML IV (05:21)
[2022-10-11 05:26] LABS: Basophils % 0.5 %; Eosinophils # 0.1 10^3/uL (0.0-0.8); Eosinophils % 1.2 %; Hemoglobin 11.2 g/dL (11.7-16.6); Lymphocytes # 0.9 10^3/uL (0.8-4.8); Mean Corpuscular Hemoglobin 28.9 pg (28.0-34.0); Mean Corpuscular Volume 90.4 fl (80-94); Mean Platelet Volume 11.3 fL (7.4-10.4); Monocytes # 0.7 10^3/uL (0.2-0.9); Monocytes % 11.7 %; Neutrophils # 3.95 10^3/uL (1.8-7.7); Neutrophils % 70.2 %; Nucleated Red Blood Cells % 0 %; Platelet Count 167 10^3/cmm (130-400); Red Blood Count 3.87 10^6/uL (4.1-5.3); Red Cell Distribution Width 14.2 % (12.1-15.1); White Blood Count 5.6 10^3/uL (4.0-10.0)
[2022-10-11 05:44] LABS: Anion Gap 12.4 (5-19); Blood Urea Nitrogen 36 mg/dL (8-23); Calcium 8.5 mg/dL (8.5-10.5); Carbon Dioxide 21 mmol/L (22-29); Chloride 111 mmol/L (98-107); Glomerular Filtration Rate 55.2 mL/min (90-130); Glucose 121 mg/dL (65-115); Osmolality Calculated 300 mOsm/kg (285-295); Potassium 4.4 mmol/L (3.5-5.1); Sodium 140 mmol/L (136-145)
[2022-10-11 07:51] VITALS: BP 155/85; PULSE 76; RESP 18; TEMP 36.4; O2SAT 96
[2022-10-11] MEDS: gabapentin 100 mg Capsule PO (08:48)
[2022-10-11] MEDS: primidone 50 mg Tablet PO (08:48)
[2022-10-11] MEDS: finasteride 5 mg Tablet PO (08:48)
[2022-10-11] MEDS: clopidogrel 75 mg Tablet PO (08:48)
[2022-10-11] MEDS: amlodipine 10 mg Tablet PO (08:48)
[2022-10-11] MEDS: metoprolol tartrate 50 mg Tablet PO (08:48)
[2022-10-11] MEDS: isosorbide mononitrate ER 30 mg Tablet PO (08:48)
[2022-10-11] MEDS: tamsulosin 0.4 mg Capsule PO (08:48)
[2022-10-11] MEDS: carbidopa-levodopa 25-100mg Tablet 1 EACH PO (08:48)
[2022-10-11] MEDS: insulin glargine 100 units/1 mL 80 UNIT SUBCUT (08:48)
--- NOTE | 2022-10-11 10:23 | PM.DCS ---
Discharge Providers Date of Admission: 10/09/22 21:40 Date of Discharge: October 11, 2022 Attending Provider at Admission: Silvestre Downs DO Attending Provider at Discharge: Jimmy Almanzar MD Primary Care Provider: CHRIS Summers Diagnoses at Discharge Discharge Diagnosis (1) Acute on chronic renal failure: Status: Acute (2) Urinary retention: Status: Acute (3) Urinary tract infection: Status: Acute Qualifiers: Hematuria presence: without hematuria Urinary tract infection type: acute cystitis Qualified Code(s): N30.00 - Acute cystitis without hematuria (4) Parkinson disease: Status: Acute (5) Diabetic neuropathy associated with type 2 diabetes mellitus: Status: Acute (6) Essential tremor: Status: Acute (7) HTN (hypertension): Status: Acute (8) Obesity: Status: Acute (9) Diabetes: Status: Acute Reason for Visit Reason for Visit: dizzy, headache,vomiting, nausea Hospital Course Hospital Course 66-year-old male who was admitted for management of headache, acute on chronic kidney injury related to urine retention, 1 L was obtained with Salazar cath placement, patient has been started on tamsulosin and finasteride for BPH, he has been diagnosed with UTI as well on discharge he will get levofloxacin, referral to urology at [facility], will do voiding trial before his discharge from the hospital. Creatinine improving. Urine culture showing superficial maryann. He remained afebrile. Creatinine at discharge is at baseline 1.3. He ranges between 1.3-1.5 Physical Exam Narrative: Abdomen distended nontender Awake and alert Pleasant cooperative Nonfocal neuro exam Hemoglobin Able to eat and tolerate diet lower extremity no edema GCS 15 Urinary Catheter Management: Salazar: Cath Placed During This Visit: yes, but has since been removed by the nurse Reason for Continuing Indwelling Catheter: Decision to DC Catheter Urinary Catheter Date of Insertion: 10/09/22 Urinary Catheter Time of Insertion: 20:29 Date Urinary Catheter Removed: 10/11/22 Time Urinary Catheter Discontinued: 09:43 Discharge Data Studies Completed and Pending Completed Studies During Hospitalization Category Date Time Status CT abdomen pelvis wo con [id number] Stat Cat Scan 10/09/22 17:[address] head wo con* [id number] Stat Cat Scan 10/09/22 15:37 Completed XR chest 1V portable [id number] Stat Exams 10/09/22 15:34 Completed Pending at discharge Category Date Time Status Blood Culture Stat Lab 10/09/22 21:30 Results Urine Culture Stat Lab 10/09/22 18:44 Results Radiology Impressions Chest X-Ray 10/09/22 15:34 IMPRESSION: No acute findings. Head CT 10/09/22 15:37 IMPRESSION: No acute intracranial abnormality. Abdomen/Pelvis CT 10/09/22 17:43 IMPRESSION: 1. No acute findings in the abdomen or pelvis. 2. Sludge and possible small stones in the gallbladder. 3. Acute appearing left 7th rib fracture. Laboratory Results WBC 5.6 10^3/uL (4.0-10.0) 10/11/22 04:46 RBC 3.87 10^6/uL (4.1-5.3) L 10/11/22 04:46 Hgb 11.2 g/dL (11.7-16.6) L 10/11/22 04:46 Hct 35.0 % (42.0-52.0) L 10/11/22 04:46 MCV 90.4 fl (80-94) 10/11/22 04:46 MCH 28.9 pg (28.0-34.0) 10/11/22 04:46 MCHC 32.0 g/dL (30.0-36.0) 10/11/22 04:46 RDW 14.2 % (12.1-15.1) 10/11/22 04:46 Plt Count 167 10^3/cmm (130-400) 10/11/22 04:46 MPV 11.3 fL (7.4-10.4) H 10/11/22 04:46 Neut % (Auto) 70.2 % 10/11/22 04:46 Lymph % (Auto) 16.0 % 10/11/22 04:46 [place] % (Auto) 11.7 % 10/11/22 04:46 Eos % (Auto) 1.2 % 10/11/22 04:46 Baso % (Auto) 0.5 % 10/11/22 04:46 Neut # (Auto) 3.95 10^3/uL (1.8-7.7) 10/11/22 04:46 Lymph # (Auto) 0.9 10^3/uL (0.8-4.8) 10/11/22 04:46 [place] # (Auto) 0.7 10^3/uL (0.2-0.9) 10/11/22 04:46 Eos # (Auto) 0.1 10^3/uL (0.0-0.8) 10/11/22 04:46 Baso # (Auto) 0.0 10^3/uL (0.0-0.1) 10/11/22 04:46 Nucleated RBC % (auto) 0 % 10/11/22 04:46 Nucleated RBCs # 0.0 /100WBC 10/11/22 04:46 PT 13.20 SECONDS (12.1-14.9) 10/09/22 15:50 INR 0.97 (0.8-1.2) 10/09/22 15:50 Sodium 140 mmol/L (136-145) 10/11/22 04:46 Potassium 4.4 mmol/L (3.5-5.1) 10/11/22 04:46 Chloride 111 mmol/L (98-107) H 10/11/22 04:46 Carbon Dioxide 21 mmol/L (22-29) L 10/11/22 04:46 Anion Gap 12.4 (5-19) 10/11/22 04:46 BUN 36 mg/dL (8-23) H 10/11/22 04:46 Creatinine 1.3 mg/dL (0.7-1.2) H 10/11/22 04:46 GFR Calculation 55.2 mL/min (90-130) L 10/11/22 04:46 Glucose 121 mg/dL (65-115) H 10/11/22 04:46 Calculated Osmolality 300 mOsm/kg (285-295) H 10/11/22 04:46 Calcium 8.5 mg/dL (8.5-10.5) 10/11/22 04:46 Magnesium 2.6 mg/dL (1.7-2.3) H 10/09/22 15:50 Total Bilirubin 0.5 mg/dL (0.15-1.2) 10/09/22 15:50 AST 11 U/L (0-40) 10/09/22 15:50 ALT < 5 U/L (0-41) 10/09/22 15:50 Alkaline Phosphatase 135 U/L (40-130) H 10/09/22 15:50 Troponin T Baseline 33 ng/L (0-15) H 10/09/22 15:50 Troponin T 120 Minute 32.10 ng/L (0-15) H 10/09/22 17:28 Delta Troponin T -0.90 ABS# (0-10) L 10/09/22 17:28 Troponin T Hi Sens 6Hr 24.52 ng/L (0-15) H 10/09/22 21:30 Troponin T Hi Sens 6Hr Delta -8.48 ng/L (0-12) L 10/09/22 21:30 Total Protein 6.3 g/dL (6.6-8.7) L 10/09/22 15:50 Albumin 4.1 g/dL (3.5-5.2) 10/09/22 15:50 Globulin 2.2 g/dL (1.3-4.6) 10/09/22 15:50 Urine Color Yellow (Yellow) 10/09/22 18:44 Urine Appearance Clear (CLEAR) 10/09/22 18:44 Urine pH 5 (5-7) 10/09/22 18:44 Ur Specific [place] 1.015 (1.005-1.030) 10/09/22 18:44 Urine Protein Neg (Negative) 10/09/22 18:44 Urine Glucose (UA) 4+ (Normal) H 10/09/22 18:44 Urine Ketones Negative (Negative) 10/09/22 18:44 Urine Blood Neg (Negative) 10/09/22 18:44 Urine Nitrate Negative (Negative) 10/09/22 18:44 Urine Bilirubin 1+ (Negative) H 10/09/22 18:44 Urine Urobilinogen 1 mg/dL (Negative) H 10/09/22 18:44 Ur Leukocyte Esterase 2+ (Negative) H 10/09/22 18:44 Urine RBC 0-4 /hpf (0-2) H 10/09/22 18:44 Urine WBC 15-25 /hpf (0-5) H 10/09/22 18:44 Ur Squamous Epith Cells 0-4 /hpf (0-5) H 10/09/22 18:44 Amorphous Sediment Not Reportable 10/09/22 18:44 Urine Bacteria Trace /hpf (NONE) 10/09/22 18:44 Hyaline Casts 10-15 /lpf H 10/09/22 18:44 Urine Mucus 3+ /hpf 10/09/22 18:44 Urine Yeast 1+ /hpf H 10/09/22 18:44 Vitals Last Vital Signs Temp 97.5 F L 10/11/22 07:51 Pulse 76 10/11/22 07:51 Resp 18 10/11/22 07:51 BP 155/85 10/11/22 07:51 Pulse Ox 96 10/11/22 07:51 O2 Del Method Room Air 10/11/22 04:00 Discharge Plan Discharge Patient Disposition: Home Condition: Stable Prescriptions: New tamsulosin 0.4 mg Capsule 0.4 mg PO DAILY Qty: 90 1RF finasteride 5 mg Tablet 5 mg PO DAILY Qty: 90 3RF levofloxacin 750 mg tablet 750 mg PO DAILY 7 Days Qty: 7 0RF Continued aspirin [Adult Low Dose Aspirin] 81 mg tablet,delayed release (DR/EC) 81 mg PO DAILY amlodipine 10 mg tablet 10 mg PO QDAY pantoprazole 40 mg tablet,delayed release (DR/EC) 40 mg PO DAILY lisinopril 40 mg tablet 20 mg PO DAILY carbidopa-levodopa 25-100 mg tablet 1 tab PO TID 90 Days Qty: 270 3RF Rx Instructions: Take 1 tab in AM, noon, and 4pm Levemir FlexTouch U-100 Insuln 100 unit/mL (3 mL) insulin pen 100 unit SUBCUT DAILY (DME) FreeStyle Regina 2 [place] Misc See Rx Instructions .Route Qty: 1 0RF Rx Instructions: As directed (DME) FreeStyle Regina 2 Sensor Kit See Rx Instructions .Route Qty: 1 0RF Rx Instructions: As directed gabapentin 100 mg capsule 100 mg PO BID clopidogrel 75 mg tablet 75 mg PO DAILY 90 Days Qty: 90 3RF metoprolol tartrate 50 mg tablet 50 mg PO BID Qty: 180 3RF primidone 50 mg tablet 50 mg PO DAILY Qty: 30 3RF Rx Instructions: Take one daily with supper. furosemide 40 mg tablet 40 mg PO BID Victoza 2-Kg 0.6 mg/0.1 mL (18 mg/3 mL) Pen Injector 1.8 mg SUBCUT DAILY isosorbide mononitrate 30 mg tablet extended release 24 hr 30 mg PO DAILY naproxen sodium [Aleve] 220 mg tablet 220 mg PO Q12H PRN (Reason: Pain) mupirocin 2 % ointment 1 applic TOPICAL DAILY Vitamin D3 25 mcg (1,000 unit) Capsule 25 mcg PO DAILY Fish Oil 120-180 mg Capsule 1 cap PO DAILY rosuvastatin 10 mg tablet 10 mg PO BEDTIME Cinnamon 500 mg Capsule 500 mg PO EVERY OTHER DAY Jardiance 25 mg tablet 25 mg PO DAILY Discharge Orders: Discharge Order (Routine); Ordered 10/11/22 Ordered By: Jimmy Almanzar Referrals: Roxana James FNP [Primary Care Provider] - (Laron Ortiz will call with your follow up appointment with Roxana James) Michael Patrick MD [Referring] - 1-3 days (BPH) Patient Instructions: Finasteride (By mouth), Levofloxacin (By mouth), Tamsulosin (By mouth), Acute Kidney Injury (DC), Urinary Tract Infection in Men (DC), Chronic Kidney Disease (DC), Opioid Safety Discharge Attestations Time Spent in Discharge Care*: greater than 30 min Quality Metrics Clinical Quality Measures [ No reported AMI, CVA or VTE this stay] Coding Level of Care Code Acute Code for Chg Fwd Diagnoses Acute on chronic renal failure N17.9; N18.9 Urinary retention R33.9 Urinary tract infection N30.00 Hematuria presence: without hematuria Urinary tract infection type: acute cystitis Parkinson disease G20 Diabetic neuropathy associated with type 2 diabetes mellitus E11.40 Essential tremor G25.0 HTN (hypertension) I10 Obesity E66.9 Diabetes E11.9
[2022-10-11 11:58] VITALS: BP 153/81; PULSE 67; RESP 16; TEMP 36.6; O2SAT 97
[2022-10-11 13:59] VITALS: BP 153/81; PULSE 67; RESP 16; TEMP 36.6; O2SAT 97
== END 2022-10-11 13:00 | disposition home or self-care (01) ==
LOC: ER 22:46 → MEDSURG 10-10 05:41
PROVIDERS: Admitting Provider Internal Medicine; Emergency Provider Emergency Medicine; PCP Nurse Practitioner Family; Visit Provider Internal Medicine
DX: N17.9 Acute kidney failure, unspecified (principal); N18.9 Chronic kidney disease, unspecified; N30.00 Acute cystitis without hematuria; R33.9 Retention of urine, unspecified; E11.40 Type 2 diabetes mellitus with diabetic neuropathy, unspecified; Z79.4 Long term (current) use of insulin; G20 Parkinson's disease; I10 Essential (primary) hypertension; I25.10 Atherosclerotic heart disease of native coronary artery without angina pectoris; G47.33 Obstructive sleep apnea (adult) (pediatric); E78.5 Hyperlipidemia, unspecified; E66.9 Obesity, unspecified; Z68.33 Body mass index [BMI] 33.0-33.9, adult; I13.0 Hypertensive heart and chronic kidney disease with heart failure and stage 1 through stage 4 chronic kidney disease, or unspecified chronic kidney disease; I50.9 Heart failure, unspecified; I25.2 Old myocardial infarction; Z95.5 Presence of coronary angioplasty implant and graft; Z79.82 Long term (current) use of aspirin; Z79.02 Long term (current) use of antithrombotics/antiplatelets
CPT/HCPCS: 36415; 51702; 70450; 71045; 74176; 80048; 80053; 81001; 83735; 84484; 85025; 85610; 87040; 87086; 93005; 96365; 96372; 96375; 99285; G0378; J0696; J1644; J1815; J2405; J7030

== ENCOUNTER → 2022-10-16 09:10 | Outpatient (BNVA) | payer MEDICARE, MEDICAID, SELFPAY | PROVIDERS: PCP Nurse Practitioner Family; Visit Provider Internal Medicine | DX: E11.40 Type 2 diabetes mellitus with diabetic neuropathy, unspecified (principal); E78.5 Hyperlipidemia, unspecified; Z79.4 Long term (current) use of insulin | CPT/HCPCS: 99214 ==

== ENCOUNTER 2022-10-23 18:55 | Emergency (ER) | payer MEDICARE, MEDICAID, SELFPAY ==
[2022-10-23 19:07] VITALS: BP 110/72; PULSE 99; RESP 20; TEMP 37.1; O2SAT 96; BMI 33.3
--- NOTE | 2022-10-23 20:03 | W.ED.GENADLT ---
HPI - General Adult General: Chief complaint: General Medical Stated complaint: cath leaking Time Seen by Provider: 10/23/22 19:50 Source: patient Mode of arrival: ambulatory Limitations: no limitations History of Present Illness: 67-year-old male states that he had had a catheter placed for over a month ago due to urinary retention he states that today started having leaking around the cath and the cath has not been draining. Denies any pain denies any fevers denies any vomiting. He had seen his urologist yesterday but states he did not have any leaking at this time Associated symptoms: Deny chest pain, dyspnea, headache(s), nausea, rash or vomiting Review of Systems Const: Denies: fever(s), chills, body aches or change in appetite ENMT: Denies: throat pain or dental pain Card: Denies: chest pain Resp: Denies: dyspnea GI: Denies: abdominal pain, nausea, vomiting or diarrhea : Reports: difficulty urinating Musc: Denies: neck pain or back pain Skin/Breast: Denies: rash Neuro: Denies: headache(s) PFSH ED PFSH: Medical History Acute on chronic renal failure Acute renal failure ASHD (arteriosclerotic heart disease) CKD (chronic kidney disease) (~10/12/20) Diabetes Diabetic foot ulcer Diabetic neuropathy associated with type 2 diabetes mellitus Essential tremor HTN (hypertension) Hyperlipidemia Myocardial infarction Obesity CÉSAR (obstructive sleep apnea) Parkinson disease Urinary retention Urinary tract infection Surgical History S/P angioplasty with stent S/P eye surgery Status post amputation of toe Status post colonoscopy (12/24/20) sigmoid polyp Family History Mother CAD (coronary artery disease) Diabetes Social History Smoking and tobacco status: never smoked Alcohol intake: former Substance/Drug Use: never Lives independently: Yes Household members: other Details: DOG Marital status: service: No Current occupational status: disabled 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 Physical Exam Const: COMMON NORMALS: no acute distress, patient oriented x3 and healthy appearing HENMT: COMMON NORMALS: normocephalic and atraumatic HEAD & SCALP: normocephalic and atraumatic Eye: COMMON NORMALS: conjunctivae normal CONJUNCTIVA: Yes conjunctivae normal Neck/C-Spine: COMMON NORMALS: supple Chest: COMMONS NORMALS: normal inspection of the chest Resp: COMMON NORMALS: normal respiratory effort Cardio: COMMON NORMALS: regular rate and No murmurs present (Cardio) RATE: regular rate GI: COMMON NORMALS: Normal to inspection, nondistended, normoactive bowel sounds present, Soft to palpation, non-tender and no masses PALPATION: Yes Soft to palpation OTHER: Salazar is in place not draining Extremity: COMMON NORMALS: normal to inspection and full ROM Neuro: COMMON NORMALS: patient oriented x3, moves all extremities and no focal motor deficits Psych: COMMON NORMALS: mental status grossly normal, Normal thought process present and cooperative THOUGHT PROCESS: Normal thought process present Skin: COMMON NORMALS: no rashes or lesions noted and no wounds GENERAL SKIN EXAM: no rashes or lesions noted Course Vital Signs: Vital signs: Vital Signs Temperature 98.8 F 10/23/22 19:07 Pulse Rate 99 10/23/22 19:07 Respiratory Rate 20 H 10/23/22 19:07 Blood Pressure 110/72 10/23/22 19:07 Pulse Oximetry 96 10/23/22 19:07 [facility] - General Adult Medical Decision Making Patient presents here with a clogged Salazar catheter we did flush it and out its working properly he is stable for discharge he is to follow-up with his urologist and return if worsening he understands agrees to plan. Medical Records I reviewed the patient's medical records. Discharge Plan Discharge Patient Disposition: Home Clinical Impression: Obstructed Salazar catheter Condition: Stable Prescriptions: No Action aspirin [Adult Low Dose Aspirin] 81 mg tablet,delayed release (DR/EC) 81 mg PO DAILY amlodipine 10 mg tablet 10 mg PO QDAY pantoprazole 40 mg tablet,delayed release (DR/EC) 40 mg PO DAILY lisinopril 40 mg tablet 20 mg PO DAILY carbidopa-levodopa 25-100 mg tablet 1 tab PO TID 90 Days Qty: 270 3RF Rx Instructions: Take 1 tab in AM, noon, and 4pm Levemir FlexTouch U-100 Insuln 100 unit/mL (3 mL) insulin pen 100 unit SUBCUT DAILY gabapentin 100 mg capsule 100 mg PO BID (DME) FreeStyle Regina 2 [place] Misc See Rx Instructions .Route Qty: 1 0RF Rx Instructions: As directed atorvastatin 40 mg tablet 40 mg PO DAILY clopidogrel 75 mg tablet 75 mg PO DAILY 90 Days Qty: 90 3RF metoprolol tartrate 50 mg tablet 50 mg PO BID Qty: 180 3RF primidone 50 mg tablet 50 mg PO DAILY Qty: 30 3RF Rx Instructions: Take one daily with supper. (DME) FreeStyle Regnia 2 Sensor Kit See Rx Instructions .Route Qty: 6 0RF Rx Instructions: change every 14 days furosemide 40 mg tablet 40 mg PO BID Victoza 2-Kg 0.6 mg/0.1 mL (18 mg/3 mL) Pen Injector 1.8 mg SUBCUT DAILY isosorbide mononitrate 30 mg tablet extended release 24 hr 30 mg PO DAILY naproxen sodium [Aleve] 220 mg tablet 220 mg PO Q12H PRN (Reason: Pain) mupirocin 2 % ointment 1 applic TOPICAL DAILY Vitamin D3 25 mcg (1,000 unit) Capsule 25 mcg PO DAILY Fish Oil 120-180 mg Capsule 1 cap PO DAILY Cinnamon 500 mg Capsule 500 mg PO EVERY OTHER DAY Jardiance 25 mg tablet 25 mg PO DAILY tamsulosin 0.4 mg Capsule 0.4 mg PO DAILY Qty: 90 1RF finasteride 5 mg Tablet 5 mg PO DAILY Qty: 90 3RF Discharge Orders: Discharge ED (Routine); Ordered 10/23/22 Ordered By: Abhishek Fowler Referrals: Roxana James FNP [Primary Care Provider] - Discharge Diet: Advance as tolerated Discharge Activity: Resume usual activity Patient Instructions: Salazar Catheter Placement and Care (ED) Coding Level of Care Code ED Teacher Adult Education for Hugo Garcia
[2022-10-23 20:39] VITALS: BP 140/74; PULSE 78; RESP 16; O2SAT 98
== END 2022-10-23 20:55 | disposition home or self-care (01) ==
PROVIDERS: Emergency Provider Emergency Medicine; PCP Nurse Practitioner Family
DX: T83.098A Other mechanical complication of other urinary catheter, initial encounter (principal); Y84.6 Urinary catheterization as the cause of abnormal reaction of the patient, or of later complication, without mention of misadventure at the time of the procedure
CPT/HCPCS: 99283

== ENCOUNTER 2022-10-27 07:42 | Emergency (ER) | payer MEDICARE, MEDICAID, SELFPAY ==
[2022-10-27 07:43] VITALS: BP 184/106; PULSE 104; RESP 18; TEMP 36.8; O2SAT 97; BMI 33.0
--- NOTE | 2022-10-27 08:24 | ED_ITS ---
HPI - Male Genitourinary General: Chief complaint: Urogenital-Male Stated complaint: LEAKY CATHETER Time Seen by Provider: 10/27/22 07:42 Source: patient Mode of arrival: ambulatory History of Present Illness: 67-year-old male presents emergency room with complaint of leaking from the catheter. He had a Salazar catheter placed for bladder outlet obstruction. In talking to him sounds like it is a prostate issue. He was seen yesterday at [facility] had a catheter placed because he had decreased output sounds like he had a lot of sediment in the catheter that was blocking it from what he described. He states since then the catheter has been leaking around the catheter and he has had minimal urine output. He is experiencing significant suprapubic discomfort and some distention. No flank pain at this time. Onset (ago): hour(s) Duration: constant Relieving factors: none Associated symptoms: Deny discharge, dysuria, fevers/chills, hematuria, nausea, rash, swelling, urinary incontinence, urinary retention, mass, vomiting or other Review of Systems Const: Denies: fever(s), chills, fatigue or malaise Card: Denies: chest pain Resp: Denies: dyspnea GI: Reports: abdominal pain; Denies: nausea or vomiting : Denies: flank pain, dysuria, urinary incontinence or hematuria Skin/Breast: Denies: rash or pruritus PFSH ED PFSH: Medical History Acute on chronic renal failure Acute renal failure ASHD (arteriosclerotic heart disease) CKD (chronic kidney disease) (~10/12/20) Diabetes Diabetic foot ulcer Diabetic neuropathy associated with type 2 diabetes mellitus Essential tremor HTN (hypertension) Hyperlipidemia Myocardial infarction Obesity CÉSAR (obstructive sleep apnea) Parkinson disease Urinary retention Urinary tract infection Surgical History S/P angioplasty with stent S/P eye surgery Status post amputation of toe Status post colonoscopy (12/24/20) sigmoid polyp Family History Mother CAD (coronary artery disease) Diabetes Social History Smoking and tobacco status: never smoked Alcohol intake: former Substance/Drug Use: never Lives independently: Yes Household members: other Details: DOG Marital status: service: No Current occupational status: disabled 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 Physical Exam Const: GENERAL APPEARANCE: cooperative and comfortable ORIENTATION/CONSCIOUSNESS: Yes awake, Yes oriented to person, Yes oriented to place and Yes oriented to time HENMT: COMMON NORMALS: normocephalic, atraumatic and hearing grossly normal bilaterally HEAD & SCALP: normocephalic and atraumatic Resp: COMMON NORMALS: normal respiratory effort, No retractions, No use of accessory muscles and clear to auscultation bilaterally AUSCULTATION: clear to auscultation bilaterally Cardio: COMMON NORMALS: regular rate, regular rhythm and No murmurs present (Cardio) RATE: regular rate RHYTHM: regular rhythm GI: OTHER: Suprapubic tenderness fullness bladder palpable to the level of the umbilicus Extremity: COMMON NORMALS: normal to inspection, capillary refill normal, no clubbing, cyanosis or edema, no calf tenderness and no pedal edema Neuro: SENSORIUM/ORIENTATION: Yes oriented to person, Yes oriented to place and Yes oriented to time Skin: COMMON NORMALS: no rashes or lesions noted GENERAL SKIN EXAM: no rashes or lesions noted Course Vital Signs: Vital signs: Vital Signs Temperature 98.3 F 10/27/22 07:43 Pulse Rate 104 H 10/27/22 07:43 Respiratory Rate 18 10/27/22 07:43 Blood Pressure 184/106 10/27/22 07:43 Pulse Oximetry 97 10/27/22 07:43 Oxygen Delivery Me thod Room Air 10/27/22 07:43 MDM - Male Medical Decision Making Bladder scan showed greater than 500. Salazar replaced patient ended up having a total of a little over 1000 mL of urine output no hematuria. There was significant debris in the catheter UA shows white blood cells greater than 100 per high-power field. Salazar was replaced and then copiously irrigated until clear patient tolerated well discharge patient home with Salazar in place he is already on tamsulosin add Cipro 500 twice daily follow-up with his urologist any decrease or problems with the Salazar return to the nearest emergency room. Medical Records I reviewed the patient's medical records. Lab Data I reviewed the patient's lab results. 10/27/22 08:40 Laboratory Results Sodium 137 mmol/L (136-145) 10/27/22 08:40 Potassium 3.8 mmol/L (3.5-5.1) 10/27/22 08:40 Chloride 101 mmol/L (98-107) 10/27/22 08:40 Carbon Dioxide 27 mmol/L (22-29) 10/27/22 08:40 Anion Gap 12.8 (5-19) 10/27/22 08:40 BUN 22 mg/dL (8-23) 10/27/22 08:40 Creatinine 1.2 mg/dL (0.7-1.2) 10/27/22 08:40 GFR Calculation 60.4 mL/min (90-130) L 10/27/22 08:40 Glucose 289 mg/dL (65-115) H 10/27/22 08:40 Calculated Osmolality 298 mOsm/kg (285-295) H 10/27/22 08:40 Calcium 8.8 mg/dL (8.5-10.5) 10/27/22 08:40 Urine Color Yellow (Yellow) 10/27/22 08:35 Urine Appearance Hazy (CLEAR) A 10/27/22 08:35 Urine pH 5 (5-7) 10/27/22 08:35 Ur Specific Bells 1.015 (1.005-1.030) 10/27/22 08:35 Urine Protein 1+ (Negative) H 10/27/22 08:35 Urine Glucose (UA) 4+ (Normal) H 10/27/22 08:35 Urine Ketones Negative (Negative) 10/27/22 08:35 Urine Blood 3+ (Negative) H 10/27/22 08:35 Urine Nitrate Negative (Negative) 10/27/22 08:35 Urine Bilirubin Neg (Negative) 10/27/22 08:35 Urine Urobilinogen Norm mg/dL (Negative) 10/27/22 08:35 Ur Leukocyte Esterase 1+ (Negative) H 10/27/22 08:35 Urine RBC 25-40 /hpf (0-2) H 10/27/22 08:35 Urine WBC >100 /hpf (0-5) H 10/27/22 08:35 Ur Squamous Epith Cells Rare /hpf (0-5) 10/27/22 08:35 Amorphous Sediment Not Reportable 10/27/22 08:35 Urine Bacteria Trace /hpf (NONE) 10/27/22 08:35 Urine Yeast 2+ /hpf H 10/27/22 08:35 Discharge Plan Discharge Patient Disposition: Home Clinical Impression: Urinary tract infection, Acute retention of urine, CKD (chronic kidney disease), Obstructed Salazar catheter Condition: Stable Prescriptions: New Cipro 500 mg tablet 500 mg PO BID Qty: 14 0RF No Action aspirin [Adult Low Dose Aspirin] 81 mg tablet,delayed release (DR/EC) 81 mg PO DAILY amlodipine 10 mg tablet 10 mg PO QDAY pantoprazole 40 mg tablet,delayed release (DR/EC) 40 mg PO DAILY lisinopril 40 mg tablet 20 mg PO DAILY carbidopa-levodopa 25-100 mg tablet 1 tab PO TID 90 Days Qty: 270 3RF Rx Instructions: Take 1 tab in AM, noon, and 4pm Levemir FlexTouch U-100 Insuln 100 unit/mL (3 mL) insulin pen 100 unit SUBCUT DAILY gabapentin 100 mg capsule 100 mg PO BID (DME) FreeStyle Regina 2 [place] Misc See Rx Instructions .Route Qty: 1 0RF Rx Instructions: As directed atorvastatin 40 mg tablet 40 mg PO DAILY clopidogrel 75 mg tablet 75 mg PO DAILY 90 Days Qty: 90 3RF metoprolol tartrate 50 mg tablet 50 mg PO BID Qty: 180 3RF primidone 50 mg tablet 50 mg PO DAILY Qty: 30 3RF Rx Instructions: Take one daily with supper. (DME) FreeStyle Regina 2 Sensor Kit See Rx Instructions .Route Qty: 6 0RF Rx Instructions: change every 14 days furosemide 40 mg tablet 40 mg PO BID Victoza 2-Kg 0.6 mg/0.1 mL (18 mg/3 mL) Pen Injector 1.8 mg SUBCUT DAILY isosorbide mononitrate 30 mg tablet extended release 24 hr 30 mg PO DAILY naproxen sodium [Aleve] 220 mg tablet 220 mg PO Q12H PRN (Reason: Pain) mupirocin 2 % ointment 1 applic TOPICAL DAILY Vitamin D3 25 mcg (1,000 unit) Capsule 25 mcg PO DAILY Fish Oil 120-180 mg Capsule 1 cap PO DAILY Cinnamon 500 mg Capsule 500 mg PO EVERY OTHER DAY Jardiance 25 mg tablet 25 mg PO DAILY tamsulosin 0.4 mg Capsule 0.4 mg PO DAILY Qty: 90 1RF finasteride 5 mg Tablet 5 mg PO DAILY Qty: 90 3RF Discharge Orders: Discharge ED (Routine); Ordered 10/27/22 Ordered By: Benito Evans Referrals: Roxana James FNP [Primary Care Provider] - Discharge Diet: Usual diet Discharge Activity: Resume usual activity Patient Instructions: Opioid Safety, Pain Management Activity Restrictions/Additional Instructions: You are seen today with an obstructed Salazar catheter. After it was replaced you drained over 1000 mL from your bladder. The bladder was then irrigated until clear. You did have signs of urinary tract infection on your UA. We will start you on oral antibiotics continue the tamsulosin .and follow-up with your urologist within the next week. If you have problems with the catheter draining properly again return to the emergency room. Coding Level of Care Code ED Overhead Crane Operator for Hugo Garcia
[2022-10-27 09:13] LABS: Anion Gap 12.8 (5-19); Blood Urea Nitrogen 22 mg/dL (8-23); Calcium 8.8 mg/dL (8.5-10.5); Carbon Dioxide 27 mmol/L (22-29); Chloride 101 mmol/L (98-107); Glomerular Filtration Rate 60.4 mL/min (90-130); Glucose 289 mg/dL (65-115); Osmolality Calculated 298 mOsm/kg (285-295); Potassium 3.8 mmol/L (3.5-5.1); Sodium 137 mmol/L (136-145)
[2022-10-27 09:13] LABS: Glucose Urine UA 4+ (Normal); Ketones Urine Negative (Negative); Protein Urine 1+ (Negative); Specific Gravity, Urine 1.015 (1.005-1.030); Urine Appearance Hazy (CLEAR); Urine Color Yellow (Yellow); pH Urine 5 (5-7)
[2022-10-27 09:14] LABS: Add Urine Microscopic? YES; Bacteria Urine TRACE /hpf; Bilirubin Urine Neg (Negative); Blood Urine 3+ (Negative); Leukocyte Esterase Urine 1+ (Negative); Nitrate Urine Negative (Negative); RBC Urine 25-40 /hpf (0-2); Squamous Epithelial Cell Urine RARE /hpf (0-5); Urobilinogen Urine Norm (Negative); WBC Urine >100 /hpf (0-5)
[2022-10-27 09:15] LABS: Add Urine Culture? Yes
--- NOTE | 2022-10-27 09:45 | PC.NURSE ---
Manually irrigated patient's valenzuela catheter with 900 ml of sterile water in and got approximately 910 ml of sediment filled cloudy residual out.
== END 2022-10-27 10:04 | disposition home or self-care (01) ==
PROVIDERS: Emergency Provider Family Medicine; PCP Nurse Practitioner Family
DX: G25.2 Other specified forms of tremor (principal); H49.9 Unspecified paralytic strabismus; E11.40 Type 2 diabetes mellitus with diabetic neuropathy, unspecified; E11.22 Type 2 diabetes mellitus with diabetic chronic kidney disease; N18.9 Chronic kidney disease, unspecified; Z79.4 Long term (current) use of insulin; I25.10 Atherosclerotic heart disease of native coronary artery without angina pectoris; Z95.5 Presence of coronary angioplasty implant and graft; T83.091A Other mechanical complication of indwelling urethral catheter, initial encounter; R33.8 Other retention of urine; Y73.2 Prosthetic and other implants, materials and accessory gastroenterology and urology devices associated with adverse incidents; N39.0 Urinary tract infection, site not specified; I12.9 Hypertensive chronic kidney disease with stage 1 through stage 4 chronic kidney disease, or unspecified chronic kidney disease; T83.098A Other mechanical complication of other urinary catheter, initial encounter; E78.5 Hyperlipidemia, unspecified; I25.2 Old myocardial infarction; G20 Parkinson's disease; Z79.82 Long term (current) use of aspirin
CPT/HCPCS: 36415; 51702; 51798; 80048; 81001; 87086; 87106; 99213; 99283

== ENCOUNTER 2022-11-04 03:31 | Emergency (ER) | payer MEDICARE, MEDICAID, SELFPAY ==
[2022-11-04 03:32] VITALS: BP 153/87; PULSE 83; RESP 18; TEMP 37; O2SAT 97; BMI 33.0
--- NOTE | 2022-11-04 03:32 | XRR_ITS ---
PROCEDURE INFORMATION: Exam: XR Abdomen Exam date and time: 11/04/2022 3:37 AM Age: 67 years old Clinical indication: Constipation TECHNIQUE: Imaging protocol: Radiologic exam of the abdomen. Views: Frontal supine view of the abdomen. 1 View. COMPARISON: CT abdomen pelvis con [id number] 10/09/2022 7:08 PM FINDINGS: Gastrointestinal tract: Moderate to large colonic fecal volume. Negative for small bowel dilation. Negative for pneumatosis intestinalis. Bones/joints: Unremarkable. XR/XR KUB portable [id number] IMPRESSION: Constipation.
[2022-11-04 03:46] LABS: Basophils # 0.1 10^3/uL (0.0-0.1); Basophils % 0.5 %; Eosinophils # 0.2 10^3/uL (0.0-0.8); Eosinophils % 1.6 %; Hematocrit 38.9 % (42.0-52.0); Hemoglobin 12.4 g/dL (11.7-16.6); Lymphocytes # 1.4 10^3/uL (0.8-4.8); Lymphocytes % 13.3 %; Mean Corpuscular HGB Conc 31.9 g/dL (30.0-36.0); Mean Corpuscular Hemoglobin 28.4 pg (28.0-34.0); Mean Platelet Volume 11.7 fL (7.4-10.4); Monocytes # 1.1 10^3/uL (0.2-0.9); Monocytes % 9.9 %; Neutrophils % 74.2 %; Nucleated Red Blood Cells % 0 %; Platelet Count 290 10^3/cmm (130-400); Red Blood Count 4.37 10^6/uL (4.1-5.3); Red Cell Distribution Width 13.5 % (12.1-15.1); White Blood Count 10.8 10^3/uL (4.0-10.0)
[2022-11-04] MEDS: lactulose oral liq 20 gm/30 mL UDC 30 GM PO (03:56)
[2022-11-04 03:59] VITALS: BP 129/64; PULSE 92; RESP 16; O2SAT 97
[2022-11-04 04:04] LABS: Alanine Aminotransferase < 5 U/L (0-41); Albumin Level 3.6 g/dL (3.5-5.2); Alkaline Phosphatase 98 U/L (40-130); Anion Gap 17.8 (5-19); Aspartate Amino Transferase 14 U/L (0-40); Blood Urea Nitrogen 24 mg/dL (8-23); Calcium 8.6 mg/dL (8.5-10.5); Carbon Dioxide 21 mmol/L (22-29); Chloride 102 mmol/L (98-107); Globulin 2.9 g/dL (1.3-4.6); Glomerular Filtration Rate 46.7 mL/min (90-130); Glucose 243 mg/dL (65-115); Lipase 36 U/L (13-60); Osmolality Calculated 296 mOsm/kg (285-295); Potassium 3.8 mmol/L (3.5-5.1); Sodium 137 mmol/L (136-145); Total Bilirubin 0.5 mg/dL (0.15-1.2); Total Protein 6.5 g/dL (6.6-8.7)
--- NOTE | 2022-11-04 04:05 | ED_ITS ---
HPI - Abdominal Pain General: Chief Complaint: Abdominal Pain Stated Complaint: ABD PAIN Time Seen by Provider: 11/04/22 03:33 Source: patient Mode of arrival: ambulatory Limitations: no limitations History of Present Illness: 67-year-old male who states he has not had a bowel movement in 7 days he states he was trying to go tonight and started to have some lower abdominal and rectal pain states he has not just been able to go. He denies any vomiting he denies any diffuse abdominal pain he rates pain a 2 out of 10 currently states it mainly hurts when he tries to go to the bathroom. Associated Symptoms: Reports constipation; Denies chills, dysuria, fever(s), nausea and vomiting Review of Systems Const: Denies: fever(s), chills, body aches or change in appetite Eyes: Denies: blurry vision or eye discomfort ENMT: Denies: throat pain or dental pain Card: Denies: chest pain Resp: Denies: dyspnea GI: Reports: abdominal pain and constipation; Denies: nausea or vomiting : Denies: dysuria Musc: Denies: neck pain or back pain Skin/Breast: Denies: rash Neuro: Denies: headache(s) PFSH ED PFSH: Medical History Acute on chronic renal failure Acute renal failure ASHD (arteriosclerotic heart disease) CKD (chronic kidney disease) (~10/12/20) Diabetes Diabetic foot ulcer Diabetic neuropathy associated with type 2 diabetes mellitus Essential tremor HTN (hypertension) Hyperlipidemia Myocardial infarction Obesity CÉSAR (obstructive sleep apnea) Parkinson disease Urinary retention Urinary tract infection Surgical History S/P angioplasty with stent S/P eye surgery Status post amputation of toe Status post colonoscopy (12/24/20) sigmoid polyp Family History Mother CAD (coronary artery disease) Diabetes Social History Smoking and tobacco status: never smoked Alcohol intake: former Substance/Drug Use: never Lives independently: Yes Household members: other Details: DOG Marital status: service: No Current occupational status: disabled 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 Physical Exam Const: COMMON NORMALS: no acute distress, patient oriented x3 and healthy appearing HENMT: COMMON NORMALS: normocephalic and atraumatic HEAD & SCALP: normocephalic and atraumatic Neck/C-Spine: COMMON NORMALS: full ROM and supple Chest: COMMONS NORMALS: normal inspection of the chest and normal palpation of entire chest wall Resp: COMMON NORMALS: normal respiratory effort, No retractions, No use of accessory muscles and clear to auscultation bilaterally AUSCULTATION: clear to auscultation bilaterally Cardio: COMMON NORMALS: regular rate, regular rhythm and No murmurs present (Cardio) RATE: regular rate RHYTHM: regular rhythm GI: COMMON NORMALS: Normal to inspection, nondistended, normoactive bowel sounds present, Soft to palpation, non-tender and no masses PALPATION: Yes Soft to palpation Extremity: COMMON NORMALS: normal to inspection and full ROM Neuro: COMMON NORMALS: patient oriented x3, moves all extremities and no focal motor deficits Psych: COMMON NORMALS: mental status grossly normal, Normal thought process present and cooperative THOUGHT PROCESS: Normal thought process present Skin: COMMON NORMALS: no rashes or lesions noted and no wounds GENERAL SKIN EXAM: no rashes or lesions noted Course Vital Signs: Vital signs: Vital Signs Temperature 98.6 F 11/04/22 03:32 Pulse Rate 79 11/04/22 04:17 Respiratory Rate 18 11/04/22 04:17 Blood Pressure 129/66 11/04/22 04:17 Pulse Oximetry 94 11/04/22 04:17 Oxygen Delivery Me thod Room Air 11/04/22 03:59 MDM - Abdominal Pain Medical Decision Making Patient presents here with constipation he actually had a bowel movement here and he feels much improved did give him lactulose we will prescribe him MiraLAX he is well-appearing here and stable for discharge he is to follow-up with PCP and return if worsening. Medical Records I reviewed the patient's medical records. Lab Data I reviewed the patient's lab results. 11/04/22 03:39 11/04/22 03:39 Labs/Radiology: Laboratory Results WBC 10.8 10^3/uL (4.0-10.0) H 11/04/22 03:39 RBC 4.37 10^6/uL (4.1-5.3) 11/04/22 03:39 Hgb 12.4 g/dL (11.7-16.6) 11/04/22 03:39 Hct 38.9 % (42.0-52.0) L 11/04/22 03:39 MCV 89.0 fl (80-94) 11/04/22 03:39 MCH 28.4 pg (28.0-34.0) 11/04/22 03:39 MCHC 31.9 g/dL (30.0-36.0) 11/04/22 03:39 RDW 13.5 % (12.1-15.1) 11/04/22 03:39 Plt Count 290 10^3/cmm (130-400) 11/04/22 03:39 MPV 11.7 fL (7.4-10.4) H 11/04/22 03:39 Neut % (Auto) 74.2 % 11/04/22 03:39 Lymph % (Auto) 13.3 % 11/04/22 03:39 Clinch % (Auto) 9.9 % 11/04/22 03:39 Eos % (Auto) 1.6 % 11/04/22 03:39 Baso % (Auto) 0.5 % 11/04/22 03:39 Neut # (Auto) 8.00 10^3/uL (1.8-7.7) H 11/04/22 03:39 Lymph # (Auto) 1.4 10^3/uL (0.8-4.8) 11/04/22 03:39 Clinch # (Auto) 1.1 10^3/uL (0.2-0.9) H 11/04/22 03:39 Eos # (Auto) 0.2 10^3/uL (0.0-0.8) 11/04/22 03:39 Baso # (Auto) 0.1 10^3/uL (0.0-0.1) 11/04/22 03:39 Nucleated RBC % (auto) 0 % 11/04/22 03:39 Nucleated RBCs # 0.0 /100WBC 11/04/22 03:39 Sodium 137 mmol/L (136-145) 11/04/22 03:39 Potassium 3.8 mmol/L (3.5-5.1) 11/04/22 03:39 Chloride 102 mmol/L (98-107) 11/04/22 03:39 Carbon Dioxide 21 mmol/L (22-29) L 11/04/22 03:39 Anion Gap 17.8 (5-19) 11/04/22 03:39 BUN 24 mg/dL (8-23) H 11/04/22 03:39 Creatinine 1.5 mg/dL (0.7-1.2) H 11/04/22 03:39 GFR Calculation 46.7 mL/min (90-130) L 11/04/22 03:39 Glucose 243 mg/dL (65-115) H 11/04/22 03:39 Calculated Osmolality 296 mOsm/kg (285-295) H 11/04/22 03:39 Calcium 8.6 mg/dL (8.5-10.5) 11/04/22 03:39 Total Bilirubin 0.5 mg/dL (0.15-1.2) 11/04/22 03:39 AST 14 U/L (0-40) 11/04/22 03:39 ALT < 5 U/L (0-41) 11/04/22 03:39 Alkaline Phosphatase 98 U/L (40-130) 11/04/22 03:39 Total Protein 6.5 g/dL (6.6-8.7) L 11/04/22 03:39 Albumin 3.6 g/dL (3.5-5.2) 11/04/22 03:39 Globulin 2.9 g/dL (1.3-4.6) 11/04/22 03:39 Lipase 36 U/L (13-60) 11/04/22 03:39 Discharge Plan Discharge Patient Disposition: Home Clinical Impression: Constipation Condition: Stable Prescriptions: New Miralax 17 gram powder in packet 17 g PO DAILY PRN (Reason: constipation) Qty: 14 0RF No Action aspirin [Adult Low Dose Aspirin] 81 mg tablet,delayed release (DR/EC) 81 mg PO DAILY amlodipine 10 mg tablet 10 mg PO QDAY pantoprazole 40 mg tablet,delayed release (DR/EC) 40 mg PO DAILY lisinopril 40 mg tablet 20 mg PO DAILY carbidopa-levodopa 25-100 mg tablet 1 tab PO TID 90 Days Qty: 270 3RF Rx Instructions: Take 1 tab in AM, noon, and 4pm Levemir FlexTouch U-100 Insuln 100 unit/mL (3 mL) insulin pen 100 unit SUBCUT DAILY gabapentin 100 mg capsule 100 mg PO BID (DME) FreeStyle Regina 2 [place] Misc See Rx Instructions .Route Qty: 1 0RF Rx Instructions: As directed atorvastatin 40 mg tablet 40 mg PO DAILY clopidogrel 75 mg tablet 75 mg PO DAILY 90 Days Qty: 90 3RF metoprolol tartrate 50 mg tablet 50 mg PO BID Qty: 180 3RF primidone 50 mg tablet 50 mg PO DAILY Qty: 30 3RF Rx Instructions: Take one daily with supper. (DME) FreeStyle Regina 2 Sensor Kit See Rx Instructions .Route Qty: 6 0RF Rx Instructions: change every 14 days furosemide 40 mg tablet 40 mg PO BID Victoza 2-Kg 0.6 mg/0.1 mL (18 mg/3 mL) Pen Injector 1.8 mg SUBCUT DAILY isosorbide mononitrate 30 mg tablet extended release 24 hr 30 mg PO DAILY naproxen sodium [Aleve] 220 mg tablet 220 mg PO Q12H PRN (Reason: Pain) Cipro 500 mg tablet 500 mg PO BID Qty: 14 0RF mupirocin 2 % ointment 1 applic TOPICAL DAILY Vitamin D3 25 mcg (1,000 unit) Capsule 25 mcg PO DAILY Fish Oil 120-180 mg Capsule 1 cap PO DAILY Cinnamon 500 mg Capsule 500 mg PO EVERY OTHER DAY Jardiance 25 mg tablet 25 mg PO DAILY tamsulosin 0.4 mg Capsule 0.4 mg PO DAILY Qty: 90 1RF finasteride 5 mg Tablet 5 mg PO DAILY Qty: 90 3RF Discharge Orders: Discharge ED (Routine); Ordered 11/04/22 Ordered By: Abhishek Fowler Referrals: Roxana James FNP [Primary Care Provider] - 1-3 days Discharge Diet: Advance as tolerated Discharge Activity: Resume usual activity Patient Instructions: Constipation (ED) Coding Level of Care Code ED Procurement Director for Hugo Garcia
[2022-11-04 04:06] LABS: Creatinine Clr Calc Pharmacy 54.3526
[2022-11-04 04:17] VITALS: BP 129/66; PULSE 79; RESP 18; O2SAT 94
== END 2022-11-04 04:18 | disposition home or self-care (01) ==
PROVIDERS: Emergency Provider Emergency Medicine; PCP Nurse Practitioner Family
DX: K59.00 Constipation, unspecified (principal); Z79.82 Long term (current) use of aspirin; Z79.4 Long term (current) use of insulin; Z79.02 Long term (current) use of antithrombotics/antiplatelets; I12.9 Hypertensive chronic kidney disease with stage 1 through stage 4 chronic kidney disease, or unspecified chronic kidney disease; E11.22 Type 2 diabetes mellitus with diabetic chronic kidney disease; N18.2 Chronic kidney disease, stage 2 (mild); E78.5 Hyperlipidemia, unspecified; I25.2 Old myocardial infarction; G20 Parkinson's disease
CPT/HCPCS: 74018; 80053; 83690; 85025; 99284

== ENCOUNTER 2022-11-09 21:57 | Emergency (ER) | payer MEDICARE, MEDICAID, SELFPAY ==
[2022-11-09 22:02] VITALS: BP 107/61; PULSE 75; RESP 16; TEMP 36.6; O2SAT 98; BMI 31.7
--- NOTE | 2022-11-09 23:01 | XRR_ITS ---
PROCEDURE INFORMATION: Exam: XR Chest Exam date and time: 11/09/2022 11:08 PM Age: 67 years old Clinical indication: Shortness of breath; Additional info: Weakness TECHNIQUE: Imaging protocol: Radiologic exam of the chest. Views: 1 view. COMPARISON: CR XR chest 1V portable [id number] 10/09/2022 4:08 PM FINDINGS: Lungs: Bibasilar atelectasis versus minimal infiltrate. Pleural spaces: Unremarkable. No pleural effusion. No pneumothorax. Heart/Mediastinum: Cardiomegaly. Bones/joints: Unremarkable. XR/XR chest 1V portable [id number] IMPRESSION: 1. Cardiomegaly. 2. Bibasilar atelectasis versus minimal infiltrate.
--- NOTE | 2022-11-09 23:02 | ECG_ITS ---
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 Measurements Intervals [place] Rate: 73 P: 33 [place]: 181 QRS: -24 QRSD: 98 T: 50 QT: 392 QTc: 434 Interpretive Statements SINUS RHYTHM BORDERLINE LEFT AXIS DEVIATION [QRS AXIS < -20] Compared to ECG 10/09/2022 21:37:23 Myocardial infarct finding no longer present Electronically Signed On 11-10-2022 8:28:41 CDT by Harvey Martins M.D. [id number]
[2022-11-09 23:32] LABS: Basophils % 0.4 %; Eosinophils # 0.1 10^3/uL (0.0-0.8); Eosinophils % 1.2 %; Hematocrit 38.5 % (42.0-52.0); Hemoglobin 12.6 g/dL (11.7-16.6); Lymphocytes # 1.3 10^3/uL (0.8-4.8); Lymphocytes % 13.4 %; Mean Corpuscular HGB Conc 32.7 g/dL (30.0-36.0); Mean Corpuscular Volume 88.7 fl (80-94); Mean Platelet Volume 10.4 fL (7.4-10.4); Monocytes # 0.7 10^3/uL (0.2-0.9); Monocytes % 7.8 %; Neutrophils % 76.7 %; Nucleated Red Blood Cells % 0 %; Platelet Count 262 10^3/cmm (130-400); Red Blood Count 4.34 10^6/uL (4.1-5.3); Red Cell Distribution Width 13.5 % (12.1-15.1); White Blood Count 9.5 10^3/uL (4.0-10.0)
[2022-11-09 23:50] LABS: Lactic Sepsis W/Reflex 1.8 mmol/L (0.5-2.2)
[2022-11-09 23:51] LABS: Alanine Aminotransferase < 5 U/L (0-41); Albumin Level 3.5 g/dL (3.5-5.2); Alkaline Phosphatase 97 U/L (40-130); Anion Gap 18.3 (5-19); Aspartate Amino Transferase 10 U/L (0-40); Blood Urea Nitrogen 39 mg/dL (8-23); Calcium 9.3 mg/dL (8.5-10.5); Carbon Dioxide 24 mmol/L (22-29); Chloride 100 mmol/L (98-107); Globulin 3.2 g/dL (1.3-4.6); Glomerular Filtration Rate 43.3 mL/min (90-130); Glucose 239 mg/dL (65-115); Magnesium 2.6 mg/dL (1.7-2.3); Osmolality Calculated 303 mOsm/kg (285-295); Phosphorus 2.9 mg/dL (2.5-4.5); Potassium 4.3 mmol/L (3.5-5.1); Sodium 138 mmol/L (136-145); Total Bilirubin 0.4 mg/dL (0.15-1.2); Total Protein 6.7 g/dL (6.6-8.7)
[2022-11-09 23:58] LABS: Urine Appearance Turbid (CLEAR); Urine Color Colorless (Yellow)
[2022-11-09 23:59] LABS: Add Urine Microscopic? YES; Bilirubin Urine Neg (Negative); Blood Urine 3+ (Negative); Glucose Urine UA 4+ (Normal); Ketones Urine 1+ (Negative); Leukocyte Esterase Urine 2+ (Negative); Nitrate Urine Positive (Negative); Protein Urine 1+ (Negative); Specific Gravity, Urine 1.015 (1.005-1.030); Urobilinogen Urine Norm (Negative); pH Urine 5 (5-7)
--- NOTE | 2022-11-10 00:01 | PC.NURSE ---
RN flushed valenzuela catheter per MD order. 120 mL flushed into catheter. No return noted. Pt stated catheter was draining today and he emptied it this afternoon with the bag being 1/2 full. Upon bladder scan, 176 mL, 183 mL, and 191 mL scanned. MD notified.
[2022-11-10 00:02] LABS: RBC Urine TOO NUMEROUS TO CNT /hpf (0-2); WBC Urine TOO NUMEROUS TO CNT /hpf (0-5)
[2022-11-10 00:03] LABS: Add Urine Culture? Yes; Bacteria Urine 3+ /hpf; Squamous Epithelial Cell Urine 0-4 /hpf (0-5)
[2022-11-10] MEDS: cefTRIAXone 1,000 MG in sodium chloride 0.9% (plus) 50 ML 100 MG IV (01:29)
[2022-11-10 01:32] VITALS: BP 121/59; PULSE 70; RESP 16; O2SAT 97
--- NOTE | 2022-11-10 01:45 | W.ED.WEAKNES ---
HPI - Weakness General: Chief complaint: Weakness Stated complaint: Dizzy,Light Headed Time Seen by Provider: 11/09/22 22:16 Source: patient History of Present Illness: 67-year-old male with urinary outlet obstruction. He had a Salazar placed recently with relief. He presents with a Salazar catheter not draining, and leakage around the catheter. He also states that he is dizzy, and cannot stand or walk very well. MD Complaint: generalized weakness Onset (ago): hour(s) Duration: constant Location: generalized Quality: other Relieving factors: none Exacerbating factors: none Associated symptoms: Reports dysuria; Denies chest pain, chills, confusion, diaphoresis, fever(s), headache(s), myalgias, short of breath, syncope or vomiting Review of Systems Const: Denies: fever(s), chills or diaphoresis Eyes: Denies: change in vision Card: Denies: chest pain or syncope GI: Denies: vomiting : Reports: dysuria Neuro: Denies: headache(s) or confusion PFSH ED PFSH: Medical History Acute on chronic renal failure Acute renal failure ASHD (arteriosclerotic heart disease) CKD (chronic kidney disease) (~10/12/20) Diabetes Diabetic foot ulcer Diabetic neuropathy associated with type 2 diabetes mellitus Essential tremor HTN (hypertension) Hyperlipidemia Myocardial infarction Obesity CÉSAR (obstructive sleep apnea) Parkinson disease Urinary retention Urinary tract infection Surgical History S/P angioplasty with stent S/P eye surgery Status post amputation of toe Status post colonoscopy (12/24/20) sigmoid polyp Family History Mother CAD (coronary artery disease) Diabetes Social History Smoking and tobacco status: never smoked Alcohol intake: former Substance/Drug Use: never Lives independently: Yes Household members: other Details: DOG Marital status: service: No Current occupational status: disabled 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 Physical Exam Const: COMMON NORMALS: no acute distress and alert GENERAL APPEARANCE: cooperative and frail appearing HENMT: COMMON NORMALS: normocephalic, atraumatic and Normal external nose present HEAD & SCALP: normocephalic and atraumatic FACE & SINUS: normal facial exam and face symmetric NOSE: Normal external nose present Eye: COMMON NORMALS: Equal, round and reactive pupils present and EOMs intact bilaterally PUPIL: Yes Equal, round and reactive pupils present Neck/C-Spine: GENERAL: Yes trachea midline Chest: CHEST: Yes Symmetrical chest wall rise Resp: COMMON NORMALS: normal respiratory effort, No use of accessory muscles and clear to auscultation bilaterally AUSCULTATION: clear to auscultation bilaterally Cardio: COMMON NORMALS: regular rate and regular rhythm RATE: regular rate RHYTHM: regular rhythm GI: COMMON NORMALS: Normal to inspection, nondistended, normoactive bowel sounds present, Soft to palpation and non-tender PALPATION: Yes Soft to palpation Extremity: COMMON NORMALS: no pedal edema Neuro: SENSORIUM/ORIENTATION: Yes alert MOTOR EXAM: Normal motor muscle tone present throughout Psych: COMMON NORMALS: mental status grossly normal and cooperative Course Vital Signs: Vital signs: Vital Signs Temperature 97.9 F 11/10/22 03:01 Pulse Rate 70 11/10/22 03:01 Respiratory Rate 16 11/10/22 03:01 Blood Pressure 121/59 11/10/22 03:01 Pulse Oximetry 97 11/10/22 03:01 MDM - Weakness Medical Decision Making Patient with blocked Salazar catheter, not leaking urine. It was flushed without success. Salazar was replaced, with good drainage. He has a nitrate positive urinary tract infection. His lactic acid is 1.8. His white blood cell count is normal. Creatinine is 1.6 which is his baseline. He has bibasilar atelectasis on his chest x-ray. He is given IV Rocephin for the UTI, and will be allowed home. He has some balanitis on examination, which will be treated with antibiotics as well. Close outpatient follow-up, preferably with urology. Lab Data 11/09/22 23:24 11/09/22 23:24 Radiology Impressions Chest X-Ray 11/09/22 23:01 IMPRESSION: 1. Cardiomegaly. 2. Bibasilar atelectasis versus minimal infiltrate. Laboratory Results WBC 9.5 10^3/uL (4.0-10.0) 11/09/22 23:24 RBC 4.34 10^6/uL (4.1-5.3) 11/09/22 23:24 Hgb 12.6 g/dL (11.7-16.6) 11/09/22 23:24 Hct 38.5 % (42.0-52.0) L 11/09/22 23:24 MCV 88.7 fl (80-94) 11/09/22 23:24 MCH 29.0 pg (28.0-34.0) 11/09/22 23: MCHC 32.7 g/dL (30.0-36.0) 11/09/22 23: RDW 13.5 % (12.1-15.1) 11/09/22 23: Plt Count 262 10^3/cmm (130-400) 11/09/22 23:24 MPV 10.4 fL (7.4-10.4) 11/09/22 23:24 Neut % (Auto) 76.7 % 11/09/22 23:24 Lymph % (Auto) 13.4 % 11/09/22 23:24 [place] % (Auto) 7.8 % 11/09/22 23:24 Eos % (Auto) 1.2 % 11/09/22 23: Baso % (Auto) 0.4 % 11/09/22 23:24 Neut # (Auto) 7.30 10^3/uL (1.8-7.7) 11/09/22 23:24 Lymph # (Auto) 1.3 10^3/uL (0.8-4.8) 11/09/22 23:24 [place] # (Auto) 0.7 10^3/uL (0.2-0.9) 11/09/22 23:24 Eos # (Auto) 0.1 10^3/uL (0.0-0.8) 11/09/22 23:24 Baso # (Auto) 0.0 10^3/uL (0.0-0.1) 11/09/22 23: Nucleated RBC % (auto) 0 % 11/09/22 23:24 Nucleated RBCs # 0.0 /100WBC 11/09/22 23:24 Sodium 138 mmol/L (136-145) 11/09/22 23:24 Potassium 4.3 mmol/L (3.5-5.1) 11/09/22 23:24 Chloride 100 mmol/L (98-107) 11/09/22 23:24 Carbon Dioxide 24 mmol/L (22-29) 11/09/22 23:24 Anion Gap 18.3 (5-19) 11/09/22 23:24 BUN 39 mg/dL (8-23) H 11/09/22 23:24 Creatinine 1.6 mg/dL (0.7-1.2) H 11/09/22 23:24 GFR Calculation 43.3 mL/min (90-130) L 11/09/22 23:24 Glucose 239 mg/dL (65-115) H 11/09/22 23:24 Calculated Osmolality 303 mOsm/kg (285-295) H 11/09/22 23:24 Lactic Acid 1.8 mmol/L (0.5-2.2) 11/09/22 23:24 Calcium 9.3 mg/dL (8.5-10.5) 11/09/22 23:24 Phosphorus 2.9 mg/dL (2.5-4.5) 11/09/22 23:24 Magnesium 2.6 mg/dL (1.7-2.3) H 11/09/22 23:24 Total Bilirubin 0.4 mg/dL (0.15-1.2) 11/09/22 23:24 AST 10 U/L (0-40) 11/09/22 23:24 ALT < 5 U/L (0-41) 11/09/22 23:24 Alkaline Phosphatase 97 U/L (40-130) 11/09/22 23:24 Total Protein 6.7 g/dL (6.6-8.7) 11/09/22 23:24 Albumin 3.5 g/dL (3.5-5.2) 11/09/22 23:24 Globulin 3.2 g/dL (1.3-4.6) 11/09/22 23:24 Urine Color Colorless (Yellow) 11/09/22 23:05 Urine Appearance Turbid (CLEAR) A 11/09/22 23:05 Urine pH 5 (5-7) 11/09/22 23:05 Ur Specific [place] 1.015 (1.005-1.030) 11/09/22 23:05 Urine Protein 1+ (Negative) H 11/09/22 23:05 Urine Glucose (UA) 4+ (Normal) H 11/09/22 23:05 Urine Ketones 1+ (Negative) H 11/09/22 23:05 Urine Blood 3+ (Negative) H 11/09/22 23:05 Urine Nitrate Positive (Negative) H 11/09/22 23:05 Urine Bilirubin Neg (Negative) 11/09/22 23:05 Urine Urobilinogen Norm mg/dL (Negative) 11/09/22 23:05 Ur Leukocyte Esterase 2+ (Negative) H 11/09/22 23:05 Urine RBC Too numerous to cnt /hpf (0-2) H 11/09/22 23:05 Urine WBC Too numerous to cnt /hpf (0-5) H 11/09/22 23:05 Ur Squamous Epith Cells 0-4 /hpf (0-5) H 11/09/22 23:05 Amorphous Sediment Not Reportable 11/09/22 23:05 Urine Bacteria 3+ /hpf (NONE) H 11/09/22 23:05 Discharge Plan Discharge Patient Disposition: Home Clinical Impression: Acute UTI, Acute urinary obstruction Condition: Stable Prescriptions: New cefdinir 300 mg capsule 300 mg PO BID Qty: 14 0RF No Action aspirin [Adult Low Dose Aspirin] 81 mg tablet,delayed release (DR/EC) 81 mg PO DAILY amlodipine 10 mg tablet 10 mg PO QDAY pantoprazole 40 mg tablet,delayed release (DR/EC) 40 mg PO DAILY lisinopril 40 mg tablet 20 mg PO DAILY carbidopa-levodopa 25-100 mg tablet 1 tab PO TID 90 Days Qty: 270 3RF Rx Instructions: Take 1 tab in AM, noon, and 4pm Levemir FlexTouch U-100 Insuln 100 unit/mL (3 mL) insulin pen 100 unit SUBCUT DAILY gabapentin 100 mg capsule 100 mg PO BID (DME) FreeStyle Regina 2 [place] Misc See Rx Instructions .Route Qty: 1 0RF Rx Instructions: As directed atorvastatin 40 mg tablet 40 mg PO DAILY clopidogrel 75 mg tablet 75 mg PO DAILY 90 Days Qty: 90 3RF metoprolol tartrate 50 mg tablet 50 mg PO BID Qty: 180 3RF primidone 50 mg tablet 50 mg PO DAILY Qty: 30 3RF Rx Instructions: Take one daily with supper. (DME) FreeStLumafit Regina 2 Sensor Kit See Rx Instructions .Route Qty: 6 0RF Rx Instructions: change every 14 days furosemide 40 mg tablet 40 mg PO BID Victoza 2-Kg 0.6 mg/0.1 mL (18 mg/3 mL) Pen Injector 1.8 mg SUBCUT DAILY isosorbide mononitrate 30 mg tablet extended release 24 hr 30 mg PO DAILY naproxen sodium [Aleve] 220 mg tablet 220 mg PO Q12H PRN (Reason: Pain) Cipro 500 mg tablet 500 mg PO BID Qty: 14 0RF Miralax 17 gram powder in packet 17 g PO DAILY PRN (Reason: constipation) Qty: 14 0RF mupirocin 2 % ointment 1 applic TOPICAL DAILY Vitamin D3 25 mcg (1,000 unit) Capsule 25 mcg PO DAILY Fish Oil 120-180 mg Capsule 1 cap PO DAILY Cinnamon 500 mg Capsule 500 mg PO EVERY OTHER DAY Jardiance 25 mg tablet 25 mg PO DAILY tamsulosin 0.4 mg Capsule 0.4 mg PO DAILY Qty: 90 1RF finasteride 5 mg Tablet 5 mg PO DAILY Qty: 90 3RF Discharge Orders: Discharge ED (Routine); Ordered 11/10/22 Ordered By: Lucio Chowdhury Referrals: Roxana James FNP [Primary Care Provider] - 1-3 days Patient Instructions: Opioid Safety, Pain Management Activity Restrictions/Additional Instructions: Antibiotics as directed. Return for worsening dizziness despite treatment, fever despite 2-3 doses of antibiotics, lethargy, mental status changes, shortness of breath, any other concerning symptoms. Coding Level of Care Code ED Patient Consumer Marketer for Hugo Garcia
[2022-11-10 03:01] VITALS: BP 121/59; PULSE 70; RESP 16; TEMP 36.6; O2SAT 97
== END 2022-11-10 03:03 | disposition home or self-care (01) ==
PROVIDERS: Emergency Provider Emergency Medicine; PCP Nurse Practitioner Family
DX: N39.0 Urinary tract infection, site not specified (principal); N13.9 Obstructive and reflux uropathy, unspecified; Z79.82 Long term (current) use of aspirin; Z79.02 Long term (current) use of antithrombotics/antiplatelets; Z79.4 Long term (current) use of insulin; E11.22 Type 2 diabetes mellitus with diabetic chronic kidney disease; I12.9 Hypertensive chronic kidney disease with stage 1 through stage 4 chronic kidney disease, or unspecified chronic kidney disease; N18.9 Chronic kidney disease, unspecified; E78.5 Hyperlipidemia, unspecified; I25.2 Old myocardial infarction; G20 Parkinson's disease; Z87.440 Personal history of urinary (tract) infections
CPT/HCPCS: 36415; 51702; 51798; 71045; 80053; 81001; 81003; 83605; 83735; 84100; 85025; 87077; 87086; 87186; 93005; 96374; 99285; J0696

== ENCOUNTER 2022-11-13 16:50 | Observation (INO) | payer MEDICARE, MEDICAID, SELFPAY ==
[2022-11-13 17:17] VITALS: BP 148/72; PULSE 92; RESP 16; TEMP 36.9; O2SAT 98
--- NOTE | 2022-11-13 17:29 | XRR_ITS ---
PROCEDURE INFORMATION: Exam: XR Chest Exam date and time: 11/13/2022 5:46 PM Age: 67 years old Clinical indication: Cough; Additional info: Dyspnea/cough TECHNIQUE: Imaging protocol: Radiologic exam of the chest. Views: 1 view. COMPARISON: CR (CHEST, ) 11/09/2022 11:08 PM FINDINGS: Lungs: Unremarkable. No consolidation. Pleural spaces: Unremarkable. No pleural effusion. No pneumothorax. Heart/Mediastinum: Unremarkable. No cardiomegaly. Bones/joints: Unremarkable. XR/XR chest 1V portable [id number] IMPRESSION: No acute findings.
--- NOTE | 2022-11-13 17:35 | ECG_ITS ---
[facility] Test Date: 2022-11-13 Pat Name: Yaya Astudillo Department: Room: Gender: Male It Generalist: : 1955 Requested By: Benito Rodríguez Order Number: [id number] Tr MD: Harvey Martins M.D. Measurements Intervals [place] Rate: 69 P: 22 NE: 169 QRS: -34 QRSD: 102 T: 52 QT: 397 QTc: 428 Interpretive Statements SINUS RHYTHM LEFT AXIS DEVIATION [QRS AXIS < -30] PATTERN CONSISTENT WITH PULMONARY DISEASE SEPTAL MYOCARDIAL INFARCTION , OF INDETERMINATE AGE [40+ ms Q WAVE IN V1/V2] Compared to ECG 11/10/2022 00:51:58 Myocardial infarct finding now present Electronically Signed On 11-13-2022 22:06:39 CDT by Harvey Martins M.D. [id number]
[2022-11-13 17:42] LABS: Glucose Point of Care 128 mg/dL (70-110)
[2022-11-13] MEDS: ondansetron 2 mg/ML SDV 2 mL 4 MG IVP (17:42)
[2022-11-13 17:48] LABS: Basophils % 0.4 %; Eosinophils # 0.1 10^3/uL (0.0-0.8); Eosinophils % 1.3 %; Hematocrit 39.5 % (42.0-52.0); Hemoglobin 12.7 g/dL (11.7-16.6); Lymphocytes # 1.2 10^3/uL (0.8-4.8); Lymphocytes % 12.6 %; Mean Corpuscular HGB Conc 32.2 g/dL (30.0-36.0); Mean Corpuscular Hemoglobin 28.2 pg (28.0-34.0); Mean Corpuscular Volume 87.8 fl (80-94); Mean Platelet Volume 10.4 fL (7.4-10.4); Monocytes # 0.8 10^3/uL (0.2-0.9); Monocytes % 8.4 %; Neutrophils # 7.32 10^3/uL (1.8-7.7); Neutrophils % 76.9 %; Nucleated Red Blood Cells % 0 %; Platelet Count 264 10^3/cmm (130-400); Red Cell Distribution Width 13.8 % (12.1-15.1); White Blood Count 9.5 10^3/uL (4.0-10.0)
--- NOTE | 2022-11-13 17:51 | CTR_ITS ---
PROCEDURE INFORMATION: Exam: CT Head Without Contrast Exam date and time: 11/13/2022 5:59 PM Age: 67 years old Clinical indication: Syncope and collapse TECHNIQUE: Imaging protocol: Computed tomography of the head without contrast. Radiation optimization: All CT scans at this facility use at least one of these dose optimization techniques: automated exposure control; mA and/or kV adjustment per patient size (includes targeted exams where dose is matched to clinical indication); or iterative reconstruction. REPORTING DATA: Count of CT and Cardiac NM exams in prior 12 months: This patient has received 3 known CTs and 0 known cardiac nuclear medicine studies in the 12 months prior to the current study. COMPARISON: CT head wo con* [id number] 10/09/2022 4:12 PM RADIATION DOSE METRICS: Total DLP (mGy-cm): 1116.8 FINDINGS: Brain: There is no acute intracranial hemorrhage, mass effect, or midline shift. Moderate advanced for age cerebral and cerebellar substance loss is noted. Cerebral ventricles: No hydrocephalus. Paranasal sinuses: There is no acute sinusitis. Mastoid air cells: The mastoid air cells are clear. Orbital cavities: The orbital structures are unremarkable. Bones/joints: No acute fracture. Soft tissues: Unremarkable. CT/CT head wo con* [id number] IMPRESSION: 1. No acute intracranial abnormality. 2. Moderate advanced for age substance loss.
[2022-11-13] MEDS: sodium chloride 0.9% 1,000 ML 999 ML IV ×2 (18:05→20:40)
[2022-11-13 18:06] LABS: Alanine Aminotransferase < 5 U/L (0-41); Alkaline Phosphatase 105 U/L (40-130); Anion Gap 21.1 (5-19); Aspartate Amino Transferase 12 U/L (0-40); Blood Urea Nitrogen 33 mg/dL (8-23); Calcium 9.3 mg/dL (8.5-10.5); Carbon Dioxide 22 mmol/L (22-29); Chloride 98 mmol/L (98-107); Globulin 2.9 g/dL (1.3-4.6); Glomerular Filtration Rate 37.8 mL/min (90-130); Glucose 128 mg/dL (65-115); Osmolality Calculated 293 mOsm/kg (285-295); Potassium 4.1 mmol/L (3.5-5.1); Sodium 137 mmol/L (136-145); Total Bilirubin 0.6 mg/dL (0.15-1.2); Total Protein 6.9 g/dL (6.6-8.7)
[2022-11-13 18:18] LABS: Troponin(5th) Baseline 33 ng/L (0-15)
--- NOTE | 2022-11-13 18:23 | W.ED.DIZZY ---
HPI - Dizziness General: Chief Complaint: Dizziness Stated Complaint: dizzy, light heaed Time Seen by Provider: 11/13/22 17:00 Source: patient and EMS Mode of arrival: EMS Limitations: no limitations History of Present Illness: HPI Narrative: 67-year-old male states he has had episodes of being lightheaded today. States he had multiple times where he felt like he was going to pass out he has not fully passed out though. Patient is hypotensive here he vomited on the way here he denies any chest pain denies any headache denies any worsening proving factors. Associated symptoms: Reports malaise, nausea and vomiting; Denies chest pain, chills or headache(s) Review of Systems Const: Reports: fatigue and malaise; Denies: fever(s), chills, body aches or change in appetite Eyes: Denies: blurry vision ENMT: Denies: throat pain or dental pain Card: Reports: pre-syncope; Denies: chest pain Resp: Denies: dyspnea GI: Reports: nausea and vomiting; Denies: abdominal pain or diarrhea Musc: Denies: neck pain or back pain Skin/Breast: Denies: rash Neuro: Denies: headache(s) PFSH ED PFSH: Medical History Acute on chronic renal failure Acute renal failure ASHD (arteriosclerotic heart disease) CKD (chronic kidney disease) (~10/12/20) Diabetes Diabetic foot ulcer Diabetic neuropathy associated with type 2 diabetes mellitus Essential tremor HTN (hypertension) Hyperlipidemia Myocardial infarction Obesity CÉSAR (obstructive sleep apnea) Parkinson disease Urinary retention Urinary tract infection Surgical History S/P angioplasty with stent S/P eye surgery Status post amputation of toe Status post colonoscopy (12/24/20) sigmoid polyp Family History Mother CAD (coronary artery disease) Diabetes Social History Smoking and tobacco status: never smoked Alcohol intake: former Substance/Drug Use: never Lives independently: Yes Household members: other Details: DOG Marital status: service: No Current occupational status: disabled 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 Physical Exam Const: COMMON NORMALS: patient oriented x3 HENMT: COMMON NORMALS: normocephalic and atraumatic HEAD & SCALP: normocephalic and atraumatic Eye: COMMON NORMALS: Equal, round and reactive pupils present and EOMs intact bilaterally PUPIL: Yes Equal, round and reactive pupils present Neck/C-Spine: COMMON NORMALS: full ROM and supple Chest: COMMONS NORMALS: normal inspection of the chest and normal palpation of entire chest wall Resp: COMMON NORMALS: normal respiratory effort, No retractions, No use of accessory muscles and clear to auscultation bilaterally AUSCULTATION: clear to auscultation bilaterally Cardio: COMMON NORMALS: regular rate, regular rhythm and No murmurs present (Cardio) RATE: regular rate RHYTHM: regular rhythm GI: COMMON NORMALS: Normal to inspection, nondistended, normoactive bowel sounds present, Soft to palpation, non-tender and no masses PALPATION: Yes Soft to palpation Extremity: COMMON NORMALS: normal to inspection and full ROM Neuro: COMMON NORMALS: patient oriented x3, moves all extremities and no focal motor deficits Psych: COMMON NORMALS: mental status grossly normal, Normal thought process present and cooperative THOUGHT PROCESS: Normal thought process present Skin: COMMON NORMALS: no rashes or lesions noted and no wounds GENERAL SKIN EXAM: no rashes or lesions noted Course Vital Signs: Vital signs: Vital Signs Temperature 98.5 F 11/13/22 17:17 Pulse Rate 67 11/13/22 19:37 Respiratory Rate 13 11/13/22 19:37 Blood Pressure 124/56 11/13/22 19:37 Pulse Oximetry 99 11/13/22 19:37 Oxygen Delivery Me thod Room Air 11/13/22 19:37 MDM - Dizziness Medical Decision Making Patient presents with a near syncopal event he is hypotensive when he arrived he is on multiple blood pressure medicine his blood pressures improved after IV fluids his blood work here is all normal EKG is normal spoke to the hospitalist and will admit for observation. Medical Records I reviewed the patient's medical records. Lab Data I reviewed the patient's lab results. 11/13/22 17:26 11/13/22 17:26 Radiology Impressions Chest X-Ray 11/13/22 17:29 IMPRESSION: No acute findings. Head CT 11/13/22 17:51 IMPRESSION: 1. No acute intracranial abnormality. 2. Moderate advanced for age substance loss. Laboratory Results WBC 9.5 10^3/uL (4.0-10.0) 11/13/22 17: RBC 4.50 10^6/uL (4.1-5.3) 11/13/22 17: Hgb 12.7 g/dL (11.7-16.6) 11/13/22 17: Hct 39.5 % (42.0-52.0) L 11/13/22 17: MCV 87.8 fl (80-94) 11/13/22 17: MCH 28.2 pg (28.0-34.0) 11/13/22 17: MCHC 32.2 g/dL (30.0-36.0) 11/13/22 17: RDW 13.8 % (12.1-15.1) 11/13/22 17: Plt Count 264 10^3/cmm (130-400) 11/13/22 17: MPV 10.4 fL (7.4-10.4) 11/13/22 17:26 Neut % (Auto) 76.9 % 11/13/22 17:26 Lymph % (Auto) 12.6 % 11/13/22 17: [place] % (Auto) 8.4 % 11/13/22 17:26 Eos % (Auto) 1.3 % 11/13/22 17:26 Baso % (Auto) 0.4 % 11/13/22 17: Neut # (Auto) 7.32 10^3/uL (1.8-7.7) 11/13/22 17: Lymph # (Auto) 1.2 10^3/uL (0.8-4.8) 11/13/22 17:26 [place] # (Auto) 0.8 10^3/uL (0.2-0.9) 11/13/22 17: Eos # (Auto) 0.1 10^3/uL (0.0-0.8) 11/13/22 17:26 Baso # (Auto) 0.0 10^3/uL (0.0-0.1) 11/13/22 17:26 Nucleated RBC % (auto) 0 % 11/13/22 17:26 Nucleated RBCs # 0.0 /100WBC 11/13/22 17:26 Sodium 137 mmol/L (136-145) 11/13/22 17:26 Potassium 4.1 mmol/L (3.5-5.1) 11/13/22 17:26 Chloride 98 mmol/L (98-107) 11/13/22 17:26 Carbon Dioxide 22 mmol/L (22-29) 11/13/22 17:26 Anion Gap 21.1 (5-19) H 11/13/22 17:26 BUN 33 mg/dL (8-23) H 11/13/22 17:26 Creatinine 1.8 mg/dL (0.7-1.2) H 11/13/22 17:26 GFR Calculation 37.8 mL/min (90-130) L 11/13/22 17:26 Glucose 128 mg/dL (65-115) H 11/13/22 17:26 POC Glucose 128 mg/dL (70-110) H 11/13/22 17:38 Calculated Osmolality 293 mOsm/kg (285-295) 11/13/22 17:26 Calcium 9.3 mg/dL (8.5-10.5) 11/13/22 17:26 Total Bilirubin 0.6 mg/dL (0.15-1.2) 11/13/22 17:26 AST 12 U/L (0-40) 11/13/22 17:26 ALT < 5 U/L (0-41) 11/13/22 17:26 Alkaline Phosphatase 105 U/L (40-130) 11/13/22 17:26 Creatine Kinase 29 U/L (39-308) L 11/13/22 17:26 Troponin T Baseline 33 ng/L (0-15) H 11/13/22 17:26 Total Protein 6.9 g/dL (6.6-8.7) 11/13/22 17:26 Albumin 4.0 g/dL (3.5-5.2) 11/13/22 17:26 Globulin 2.9 g/dL (1.3-4.6) 11/13/22 17:26 Discharge Plan Discharge Admit Provider: Servando Caldwell Condition: Stable Coding Level of Care Code ED Composing Room Supervisor for Chg Radha
[2022-11-13 18:28] VITALS: BP 92/52; PULSE 68; RESP 16; O2SAT 92
[2022-11-13 18:57] LABS: Creatine Phosphokinase 29 U/L (39-308)
[2022-11-13 19:37] VITALS: BP 124/56; PULSE 67; RESP 13; O2SAT 99
[2022-11-13 20:07] LABS: Add Urine Microscopic? YES; Bilirubin Urine Neg (Negative); Blood Urine 3+ (Negative); Glucose Urine UA 4+ (Normal); Ketones Urine 1+ (Negative); Leukocyte Esterase Urine 2+ (Negative); Nitrate Urine Negative (Negative); Protein Urine 3+ (Negative); Specific Gravity, Urine 1.015 (1.005-1.030); Urine Appearance Turbid (CLEAR); Urine Color Yellow (Yellow); Urobilinogen Urine Norm (Negative); pH Urine 5 (5-7)
[2022-11-13 20:08] LABS: Add Urine Culture? Yes; Amorphous Sediment Urine 1+ /hpf; Bacteria Urine 1+ /hpf; Mucus Urine 2+ /hpf; Squamous Epithelial Cell Urine 0-4 /hpf (0-5); WBC Urine 80-100 /hpf (0-5)
[2022-11-13 20:22] LABS: Troponin 5 2HR 26.26 ng/L (0-15); Troponin 5 2HR Delta -6.74 ABS# (0-10)
[2022-11-13 20:23] VITALS: BP 136/70; PULSE 69; RESP 14; O2SAT 94
--- NOTE | 2022-11-13 20:31 | ECG_ITS ---
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 Measurements Intervals [place] Rate: 67 P: -11 NE: 175 QRS: -28 QRSD: 94 T: 42 QT: 408 QTc: 432 Interpretive Statements SINUS RHYTHM BORDERLINE LEFT AXIS DEVIATION [QRS AXIS < -20] Compared to ECG 11/13/2022 17:35:10 Myocardial infarct finding no longer present Electronically Signed On 11-13-2022 22:08:26 CDT by Harvey Martins M.D. [email or web address].[email or web address] Borges [employer]/store/[id number]
[2022-11-13 20:56] VITALS: BP 145/79; PULSE 67; RESP 17; TEMP 36.5; O2SAT 97
--- NOTE | 2022-11-13 21:01 | P.HP_ITS ---
Providers/Chief Complaint Admitting Physician: Servando Caldwell MD Primary Care Provider: CHRIS Summers Chief Complaint: dizzy, light heaed History of Present Illness Yaya Astudillo is a 67 year old male with a past medical history significant for coronary artery disease, type 2 diabetes mellitus with neuropathy, tremor, hypertension hyperlipidemia, obesity, Parkinson's disease, sleep apnea, and lower urinary tract symptoms who presents to the emergency department co mplaining of lightheadedness and presyncope. Patient reports symptoms happened several times throughout the day. He endorses associated symptoms of fatigue, malaise, nausea, and emesis. He has a Valenzuela catheter which he states is currently not draining. Denies other alleviating or aggravating factors. Of note, patient is frequently evaluated by the emergency department. He was evaluated on 11/09 for draining around valenzuela catheter and dizziness, diagnosed with UTI and prescribed cefdinir. Urine culture grew Citrobacter freundii and Serratia marcescens, both sensitive to ceftriaxone. He was evaluated on 11/04 and diagnosed with constipation. Evaluated on 10/27 for malfunctioning valenzuela and catheter was replaced. He was evaluated on 10/23 for clogged valenzuela treated with flushing. He was admitted from 10/09 to 10/11 for acute kidney injury. Review of Systems Narrative: A complete review of systems was obtained and is negative except as stated in HPI. Medications/Allergies Home Medications Medication Instructions Recorded Confirmed Last Taken Type amlodipine 10 mg tablet 10 mg PO QDAY 05/10/19 10/27/22 10/09/22 History aspirin 81 mg tablet,delayed 81 mg PO DAILY 05/10/19 10/27/22 10/09/22 History release (Adult Low Dose Aspirin) pantoprazole 40 mg tablet,delayed 40 mg PO DAILY 05/10/19 10/27/22 10/09/22 History release furosemide 40 mg tablet 40 mg PO BID 07/20/19 10/27/22 10/09/22 History liraglutide 0.6 mg/0.1 mL (18 mg/3 1.8 mg SUBCUT DAILY 07/20/19 10/27/22 10/09/22 History mL) subcutaneous pen injector (Victoza 2-Kg) clopidogrel 75 mg tablet 75 mg PO DAILY 3 months #90 tabs 11/10/19 10/27/22 10/09/22 Rx metoprolol tartrate 50 mg tablet 50 mg PO BID #180 tabs 11/10/19 10/27/22 10/09/22 Rx primidone 50 mg tablet 50 mg PO DAILY #30 tabs 10/09/21 10/27/22 10/08/22 Rx gabapentin 100 mg capsule 100 mg PO BID 04/16/22 10/27/22 10/09/22 History insulin detemir U-100 100 unit/mL 100 unit SUBCUT DAILY 04/29/22 10/27/22 Unknown History (3 mL) subcutaneous pen (Levemir FlexTouch U-100 Insulin) isosorbide mononitrate 30 mg 30 mg PO DAILY 04/29/22 10/27/22 10/09/22 History tablet,extended release 24 hr naproxen sodium 220 mg tablet 220 mg PO Q12H PRN Pain 04/29/22 10/27/22 Unknown History (Aleve) carbidopa 25 mg-levodopa 100 mg 1 tab PO TID 90 days #270 tabs 04/30/22 10/27/22 10/09/22 Rx tablet lisinopril 40 mg tablet 20 mg PO DAILY 07/15/22 10/27/22 10/09/22 History mupirocin 2 % topical ointment 1 applic topical DAILY 10/09/22 10/27/22 Unknown History cholecalciferol (vitamin D3) 25 25 mcg PO DAILY 10/10/22 10/27/22 Unknown History mcg (1,000 unit) capsule (Vitamin D3) cinnamon bark 500 mg capsule 500 mg PO EVERY OTHER DAY 10/10/22 10/27/22 Unknown History (Cinnamon) docosahexaenoic acid (dha)-epa 120 1 cap PO DAILY 10/10/22 10/27/22 Unknown History mg-180 mg capsule (Fish Oil) empagliflozin 25 mg tablet 25 mg PO DAILY 10/10/22 10/27/22 Unknown History (Jardiance) finasteride 5 mg tablet 5 mg PO DAILY #90 tabs 10/11/22 10/27/22 Unknown Rx tamsulosin 0.4 mg capsule 0.4 mg PO DAILY #90 caps 10/11/22 10/27/22 Unknown Rx atorvastatin 40 mg tablet 40 mg PO DAILY 10/16/22 10/27/22 Unknown History flash glucose scanning reader #1 ea 10/16/22 10/27/22 Unknown Rx (FreeStyle Regina 2 [place]) flash glucose sensor (FreeStyle #6 ea 10/16/22 10/27/22 Unknown Rx Regina 2 Sensor kit) ciprofloxacin HCl 500 mg tablet 500 mg PO BID #14 tabs 10/27/22 10/27/22 Unknown Rx (Cipro) polyethylene glycol 3350 17 gram 17 g PO DAILY PRN constipation #14 11/04/22 Unknown Rx oral powder packet (Miralax) ea cefdinir 300 mg capsule 300 mg PO BID #14 caps 11/10/22 Unknown Rx Allergies Allergy/AdvReac Type Severity Reaction Status Date / Time No Known Allergies Allergy Verified 11/13/22 17:20 PFSH Acute PFSH: Medical History (Updated 11/13/22 @ 21:18 by Servando Caldwell MD) Acute on chronic renal failure Acute renal failure ASHD (arteriosclerotic heart disease) Chronic diarrhea CKD (chronic kidney disease) (~10/12/20) Cough Diabetes Diabetic foot ulcer Diabetic neuropathy associated with type 2 diabetes mellitus Essential tremor Exposure to COVID-19 virus HTN (hypertension) Hyperlipidemia Myocardial infarction Obesity Ophthalmoplegia CÉSAR (obstructive sleep apnea) Parkinson disease Urinary retention Urinary tract infection Surgical History S/P angioplasty with stent S/P eye surgery Status post amputation of toe Status post colonoscopy (12/24/20) sigmoid polyp Family History Mother CAD (coronary artery disease) Diabetes Social History Smoking and tobacco status: never smoked Alcohol intake: former Substance/Drug Use: never Lives independently: Yes Household members: other Details: DOG Marital status: service: No Current occupational status: disabled 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 Lying in bed. Head: Normocephalic. Atraumatic. EOM intact. Neck: No JVD. Cardiovascular: RRR. No gallops. No murmurs. No peripheral edema. Lungs: Clear to auscultation, no use of accessory muscles, no crackles or wheezes. Skin: No jaundice. No rashes. Abdomen: Normal bowel sounds, abdomen soft and nontender. Genito Urinary: Valenzuela catheter Rectal: Rectal exam not performed since no symptoms indicated blood loss. Extremities: No cyanosis or clubbing. Musculoskeletal: No swollen or erythematous joints. Neurological: Moves all 4 extremities. No myoclonus. Data 11/13/22 17:26 11/13/22 17:26 A&P Assessment and plan (1) Near syncope: Suspect either medication induced versus autonomic induced in the settings of Parkinson's disease Fall precautions Hold antihypertensives Monitor blood pressure Supportive care (2) Acute UTI: Acute catheter associated urinary tract infection Recent urine cultures reviewed Start ceftriaxone (3) Acute urinary obstruction: Continue Valenzuela catheter We will need flushed If continues to malfunction, will need replaced (4) Diabetes: Hold home medications Sliding-scale insulin correction (5) Parkinson disease: Continue home Sinemet (6) HTN (hypertension): Hold home antihypertensives Monitor blood pressure Plan DVT ppx: SCD due to fall risk Code: Full code Attestations Medical Necessity Statement*: Patient presents with recurrent near syncope with hospitalization not expected to cross two midnights. Coding Level of Care Code Acute Code for Chg Fwd Diagnoses Near syncope R55 Acute UTI N39.0 Acute urinary obstruction N13.9 Diabetes E11.9 Parkinson disease G20 HTN (hypertension) I10
[2022-11-13 22:00] VITALS: PULSE 78
[2022-11-13] MEDS: cefTRIAXone 1,000 MG in sodium chloride 0.9% (plus) 50 ML 100 MG IV (23:41)
[2022-11-13 23:43] LABS: Troponin 5 6HR 21.83 ng/L (0-15)
--- NOTE | 2022-11-13 23:58 | ECG_ITS ---
[facility] Test Date: 2022-11-13 Pat Name: Yaya Astudillo Department: Room: 255 Gender: Male Regional Engineer: : 1955 Requested By: Benito Rodríguez Order Number: [id number] Tr MD: Kimberley Ramirez M.D. Measurements Intervals [place] Rate: 83 P: 30 MD: 190 QRS: -45 QRSD: 87 T: 55 QT: 372 QTc: 439 Interpretive Statements SINUS RHYTHM LEFT AXIS DEVIATION [QRS AXIS < -30] ANTEROSEPTAL MYOCARDIAL INFARCTION , OF INDETERMINATE AGE [40+ ms Q WAVE IN V1-V4] Compared to ECG 11/13/2022 20:31:07 Myocardial infarct finding now present Electronically Signed On 11-14-2022 13:41:13 CDT by Kimberley Ramirez M.D. [id number]
[2022-11-14] VITALS: BP 156/83; PULSE 77; RESP 17; TEMP 36.4; O2SAT 96
[2022-11-14 03:50] VITALS: BP 137/78; PULSE 72; RESP 17; TEMP 36.6; O2SAT 96
[2022-11-14 05:31] VITALS: PULSE 68
[2022-11-14 06:39] LABS: Glucose Point of Care 161 mg/dL (70-110)
[2022-11-14 07:35] VITALS: BP 148/80; PULSE 75; RESP 18; TEMP 36.8; O2SAT 96
[2022-11-14] MEDS: insulin lispro 100 unit/1 mL SUBCUT ×2 (09:52→11:59)
[2022-11-14] MEDS: gabapentin 100 mg Capsule PO (09:53)
[2022-11-14] MEDS: clopidogrel 75 mg Tablet PO (09:53)
[2022-11-14] MEDS: pantoprazole DR 40 mg Tablet PO (09:53)
[2022-11-14] MEDS: tamsulosin 0.4 mg Capsule PO (09:53)
[2022-11-14] MEDS: metoprolol tartrate 50 mg Tablet PO (09:53)
[2022-11-14] MEDS: aspirin 81 mg EC Tablet PO (09:54)
[2022-11-14] MEDS: finasteride 5 mg Tablet PO (09:55)
[2022-11-14] MEDS: atorvastatin 40 mg Tablet PO (09:55)
[2022-11-14] MEDS: carbidopa-levodopa 25-100mg Tablet 1 EACH PO (09:55)
[2022-11-14 11:15] LABS: Glucose Point of Care 256 mg/dL (70-110)
[2022-11-14 11:16] VITALS: BP 117/73; PULSE 67; RESP 18; TEMP 36.6; O2SAT 96
--- NOTE | 2022-11-14 11:52 | P.DS_ITS ---
Discharge Providers Date of Admission: 11/13/22 19:42 Date of Discharge: November 14, 2022 Attending Provider at Admission: Servando Caldwell MD Attending Provider at Discharge: Mj Barrientos MD Primary Care Provider: CHRIS Summers Diagnoses at Discharge Discharge Diagnosis (1) Near syncope: Details from hospital stay: 05/15 Status: Acute (2) Acute UTI: Status: Acute (3) Acute urinary obstruction: Status: Acute (4) Diabetes: Status: Acute (5) Parkinson disease: Status: Acute (6) HTN (hypertension): Status: Acute Reason for Visit Reason for Visit: dizzy, light heaed Hospital Course Hospital Course 67yo M with Hx of CAD, DM2 with neuropathy, LUTS with indwelling valenzuela, tremor, parkinsons, HLD, obesity, CÉSAR presented to ED with near syncopal episodes. pt reported Sx occured multiple times throughout they day. Valenzuela has been intermittently obstructed elading to incontinence. Pt recnetly admited for UTI and prescribed cefdinir on 11/09/22. During hospitalizatoin give 2L NS bolus, started on rocephin and valenzuela was replaced. PT evaluated patient. was able to ambulate w/o difficulties in hallway. was +ve for orthostatis on measurements. At time of discharge pt states he was feeling back to baseline. Denied urinary Sx since new valenzuela placed, no abd pain, no dizziness, lightheadedness or near syncopal episodes. Instructed to increase PO intake in the form of water to 2L/day and take newly prescribed Abx for UTI Physical Exam Narrative: General: Patient is awake. Lying in bed. AOx3 Head: Normocephalic. Atraumatic. EOM intact. Neck: No JVD. Cardiovascular: RRR. No gallops. No murmurs. No peripheral edema. Lungs: Clear to auscultation, no use of accessory muscles, no crackles or wheezes. Skin: No jaundice. No rashes. Abdomen: Normal bowel sounds, abdomen soft and nontender. Genito Urinary: Valenzuela catheter in place with 50cc UOP. Extremities: No cyanosis or clubbing. Musculoskeletal: No swollen or erythematous joints. Neurological: Moves all 4 extremities. No myoclonus. Discharge Data Studies Completed and Pending Completed Studies During Hospitalization Category Date Time Status CT head wo con* [id number] Stat Cat Scan 11/13/22 17:51 Completed XR chest 1V portable [id number] Stat Exams 11/13/22 17:29 Completed Pending at discharge Category Date Time Status Urine Culture Stat Lab 11/13/22 19:36 Received Radiology Impressions Chest X-Ray 11/13/22 17:29 IMPRESSION: No acute findings. Head CT 11/13/22 17:51 IMPRESSION: 1. No acute intracranial abnormality. 2. Moderate advanced for age substance loss. Laboratory Results WBC 9.5 10^3/uL (4.0-10.0) 11/13/22 17:26 RBC 4.50 10^6/uL (4.1-5.3) 11/13/22 17:26 Hgb 12.7 g/dL (11.7-16.6) 11/13/22 17: Hct 39.5 % (42.0-52.0) L 11/13/22 17:26 MCV 87.8 fl (80-94) 11/13/22 17: MCH 28.2 pg (28.0-34.0) 11/13/22 17:26 MCHC 32.2 g/dL (30.0-36.0) 11/13/22 17: RDW 13.8 % (12.1-15.1) 11/13/22 17: Plt Count 264 10^3/cmm (130-400) 11/13/22 17:26 MPV 10.4 fL (7.4-10.4) 11/13/22 17:26 Neut % (Auto) 76.9 % 11/13/22 17:26 Lymph % (Auto) 12.6 % 11/13/22 17:26 [place] % (Auto) 8.4 % 11/13/22 17:26 Eos % (Auto) 1.3 % 11/13/22 17:26 Baso % (Auto) 0.4 % 11/13/22 17:26 Neut # (Auto) 7.32 10^3/uL (1.8-7.7) 11/13/22 17:26 Lymph # (Auto) 1.2 10^3/uL (0.8-4.8) 11/13/22 17:26 [place] # (Auto) 0.8 10^3/uL (0.2-0.9) 11/13/22 17:26 Eos # (Auto) 0.1 10^3/uL (0.0-0.8) 11/13/22 17:26 Baso # (Auto) 0.0 10^3/uL (0.0-0.1) 11/13/22 17:26 Nucleated RBC % (auto) 0 % 11/13/22 17:26 Nucleated RBCs # 0.0 /100WBC 11/13/22 17:26 Sodium 137 mmol/L (136-145) 11/13/22 17:26 Potassium 4.1 mmol/L (3.5-5.1) 11/13/22 17:26 Chloride 98 mmol/L (98-107) 11/13/22 17:26 Carbon Dioxide 22 mmol/L (22-29) 11/13/22 17:26 Anion Gap 21.1 (5-19) H 11/13/22 17:26 BUN 33 mg/dL (8-23) H 11/13/22 17:26 Creatinine 1.8 mg/dL (0.7-1.2) H 11/13/22 17:26 GFR Calculation 37.8 mL/min (90-130) L 11/13/22 17:26 Glucose 128 mg/dL (65-115) H 11/13/22 17:26 POC Glucose 256 mg/dL (70-110) H 11/14/22 11:06 Calculated Osmolality 293 mOsm/kg (285-295) 11/13/22 17:26 Calcium 9.3 mg/dL (8.5-10.5) 11/13/22 17:26 Total Bilirubin 0.6 mg/dL (0.15-1.2) 11/13/22 17:26 AST 12 U/L (0-40) 11/13/22 17:26 ALT < 5 U/L (0-41) 11/13/22 17:26 Alkaline Phosphatase 105 U/L (40-130) 11/13/22 17:26 Creatine Kinase 29 U/L (39-308) L 11/13/22 17:26 Troponin T Baseline 33 ng/L (0-15) H 11/13/22 17:26 Troponin T 120 Minute 26.26 ng/L (0-15) H 11/13/22 19:48 Delta Troponin T -6.74 ABS# (0-10) L 11/13/22 19:48 Troponin T Hi Sens 6Hr 21.83 ng/L (0-15) H 11/13/22 23:10 Troponin T Hi Sens 6Hr Delta -11.17 ng/L (0-12) L 11/13/22 23:10 Total Protein 6.9 g/dL (6.6-8.7) 11/13/22 17:26 Albumin 4.0 g/dL (3.5-5.2) 11/13/22 17:26 Globulin 2.9 g/dL (1.3-4.6) 11/13/22 17:26 Urine Color Yellow (Yellow) 11/13/22 19:36 Urine Appearance Turbid (CLEAR) A 11/13/22 19:36 Urine pH 5 (5-7) 11/13/22 19:36 Ur Specific [place] 1.015 (1.005-1.030) 11/13/22 19:36 Urine Protein 3+ (Negative) H 11/13/22 19:36 Urine Glucose (UA) 4+ (Normal) H 11/13/22 19:36 Urine Ketones 1+ (Negative) H 11/13/22 19:36 Urine Blood 3+ (Negative) H 11/13/22 19:36 Urine Nitrate Negative (Negative) 11/13/22 19:36 Urine Bilirubin Neg (Negative) 11/13/22 19:36 Urine Urobilinogen Norm mg/dL (Negative) 11/13/22 19:36 Ur Leukocyte Esterase 2+ (Negative) H 11/13/22 19:36 Urine RBC 5-10 /hpf (0-2) H 11/13/22 19:36 Urine WBC 80-100 /hpf (0-5) H 11/13/22 19:36 Ur Squamous Epith Cells 0-4 /hpf (0-5) H 11/13/22 19:36 Amorphous Sediment 1+ /hpf 11/13/22 19:36 Urine Bacteria 1+ /hpf (NONE) H 11/13/22 19:36 Urine Mucus 2+ /hpf 11/13/22 19:36 Vitals Last Vital Signs Temp 97.9 F 11/14/22 11:16 Pulse 67 11/14/22 11:16 Resp 18 11/14/22 11:16 BP 117/73 11/14/22 11:16 Pulse Ox 96 11/14/22 11:16 O2 Del Method Room Air 11/14/22 11:16 Discharge Plan Discharge Patient Disposition: Home Condition: Stable Prescriptions: New potassium chloride 20 mEq tablet extended release 40 meq PO DAILY 3 Days Qty: 6 0RF Continued aspirin [Adult Low Dose Aspirin] 81 mg tablet,delayed release (DR/EC) 81 mg PO DAILY pantoprazole 40 mg tablet,delayed release (DR/EC) 40 mg PO DAILY carbidopa-levodopa 25-100 mg tablet 1 tab PO TID 90 Days Qty: 270 3RF Rx Instructions: Take 1 tab in AM, noon, and 4pm Levemir FlexTouch U-100 Insuln 100 unit/mL (3 mL) insulin pen 80 unit SUBCUT BID gabapentin 100 mg capsule 100 mg PO BID (DME) FreeStyle Regina 2 [place] Misc See Rx Instructions .Route Qty: 1 0RF Rx Instructions: As directed atorvastatin 40 mg tablet 40 mg PO DAILY clopidogrel 75 mg tablet 75 mg PO DAILY 90 Days Qty: 90 3RF metoprolol tartrate 50 mg tablet 50 mg PO BID Qty: 180 3RF primidone 50 mg tablet 50 mg PO DAILY Qty: 30 3RF Rx Instructions: Take one daily with supper. (DME) FreeStyle Regina 2 Sensor Kit See Rx Instructions .Route Qty: 6 0RF Rx Instructions: change every 14 days furosemide 40 mg tablet 40 mg PO BID Victoza 2-Kg 0.6 mg/0.1 mL (18 mg/3 mL) Pen Injector 1.8 mg SUBCUT DAILY naproxen sodium [Aleve] 220 mg tablet 220 mg PO Q12H PRN (Reason: Pain) polyethylene glycol 3350 [Miralax] 17 gram powder in packet 17 g PO DAILY PRN (Reason: constipation) Qty: 14 0RF cefdinir 300 mg capsule 300 mg PO BID Qty: 14 0RF lisinopril 20 mg tablet 20 mg PO DAILY isosorbide mononitrate 60 mg tablet extended release 24 hr 60 mg PO DAILY insulin lispro 100 unit/mL insulin pen 20 unit SUBCUT TID Rx Instructions: WITH MEALS cholecalciferol (vitamin D3) [Vitamin D3] 25 mcg (1,000 unit) Capsule 25 mcg PO DAILY Fish Oil 120-180 mg Capsule 1 cap PO DAILY cinnamon bark [Cinnamon] 500 mg Capsule 500 mg PO EVERY OTHER DAY Jardiance 25 mg tablet 25 mg PO DAILY tamsulosin 0.4 mg Capsule 0.4 mg PO DAILY Qty: 90 1RF finasteride 5 mg Tablet 5 mg PO DAILY Qty: 90 3RF Discharge Orders: Discharge Order (Routine); Ordered 11/14/22 Ordered By: Mj Barrientos Referrals: Roxana James FNP [Primary Care Provider] - Discharge Diet: Diabetic Discharge Activity: Use walker/crutches as instructed Patient Instructions: Opioid Safety Discharge Attestations Time Spent in Discharge Care*: less than 30 min Quality Metrics Clinical Quality Measures [ No reported AMI, CVA or VTE this stay] Coding Level of Care Code 68654 Diagnoses Near syncope R55 Acute UTI N39.0 Acute urinary obstruction N13.9 Diabetes E11.9 Parkinson disease G20 HTN (hypertension) I10
== END 2022-11-14 15:14 | disposition home health service (06) ==
LOC: ER 18:24 → MEDSURG 19:44
PROVIDERS: Family Medicine; Admitting Provider Internal Medicine; Emergency Provider Emergency Medicine; PCP Nurse Practitioner Family; Visit Provider Family Medicine
DX: R55 Syncope and collapse (principal); N39.0 Urinary tract infection, site not specified; T83.091A Other mechanical complication of indwelling urethral catheter, initial encounter; N13.8 Other obstructive and reflux uropathy; I25.10 Atherosclerotic heart disease of native coronary artery without angina pectoris; I25.2 Old myocardial infarction; E11.22 Type 2 diabetes mellitus with diabetic chronic kidney disease; E11.40 Type 2 diabetes mellitus with diabetic neuropathy, unspecified; E78.5 Hyperlipidemia, unspecified; I10 Essential (primary) hypertension; G47.33 Obstructive sleep apnea (adult) (pediatric); G20 Parkinson's disease; Z79.4 Long term (current) use of insulin; Z79.84 Long term (current) use of oral hypoglycemic drugs; Z79.899 Other long term (current) drug therapy; Y83.8 Other surgical procedures as the cause of abnormal reaction of the patient, or of later complication, without mention of misadventure at the time of the procedure; Z95.5 Presence of coronary angioplasty implant and graft
CPT/HCPCS: 36415; 36416; 70450; 71045; 80053; 81001; 82550; 82962; 84484; 85025; 87086; 87106; 93005; 96361; 96365; 96372; 96375; 97110; 97116; 97161; 99285; G0378; J0696; J1815; J2405; J7030

== ENCOUNTER 2022-11-18 19:06 | Emergency (ER) | payer MEDICARE, MEDICAID, SELFPAY ==
[2022-11-18 19:12] VITALS: BP 142/73; PULSE 104; RESP 16; TEMP 36.8; O2SAT 100; BMI 30.9
--- NOTE | 2022-11-18 21:44 | W.ED.MALEGU ---
HPI - Male Genitourinary General: Chief complaint: Urogenital-Male Stated complaint: catheter leaking Time Seen by Provider: 11/18/22 21:14 History of Present Illness: Patient presents to the ER with complaints of Salazar catheter leaking. Patient is actually complaining of Salazar catheter clogged up and leaking around the catheter. This is happened to the patient multiple times and the last time it happened was about a week ago when he presented to this ER. Patient has a catheter in for a while per him and is scheduled to see the urologist on the of this month to have the procedure done. Review of Systems General: Reports: 10 or more systems reviewed and unremarkable except in HPI and below PFSH ED PFSH: Medical History Acute on chronic renal failure Acute renal failure ASHD (arteriosclerotic heart disease) Chronic diarrhea CKD (chronic kidney disease) (~10/12/20) Cough Diabetes Diabetic foot ulcer Diabetic neuropathy associated with type 2 diabetes mellitus Essential tremor Exposure to COVID-19 virus HTN (hypertension) Hyperlipidemia Myocardial infarction Obesity Ophthalmoplegia CSÉAR (obstructive sleep apnea) Parkinson disease Urinary retention Urinary tract infection Surgical History S/P angioplasty with stent S/P eye surgery Status post amputation of toe Status post colonoscopy (12/24/20) sigmoid polyp Family History Mother CAD (coronary artery disease) Diabetes Social History Smoking and tobacco status: never smoked Alcohol intake: former Substance/Drug Use: never Lives independently: Yes Household members: other Details: DOG Marital status: service: No Current occupational status: disabled 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 Physical Exam Const: COMMON NORMALS: no acute distress, average body habitus, patient oriented x3, no limitations, healthy appearing, alert and well nourished HENMT: COMMON NORMALS: normocephalic, atraumatic, hearing grossly normal bilaterally, external ears normal, Normal external nose present and moist oral mucous membranes HEAD & SCALP: normocephalic and atraumatic NOSE: Normal external nose present EXTERNAL EAR: Yes external ears normal Eye: COMMON NORMALS: Equal, round and reactive pupils present, EOMs intact bilaterally, conjunctivae normal and no scleral icterus CONJUNCTIVA: Yes conjunctivae normal PUPIL: Yes Equal, round and reactive pupils present Neck/C-Spine: COMMON NORMALS: no JVD Chest: COMMONS NORMALS: normal inspection of the chest and normal palpation of entire chest wall Resp: COMMON NORMALS: normal respiratory effort, No retractions and No use of accessory muscles Cardio: COMMON NORMALS: no JVD, regular rate, regular rhythm, S1 normal heart sound present, S2 normal heart sound present, No gallops present (Cardio), No clicks present (Cardio) and No murmurs present (Cardio) RATE: regular rate RHYTHM: regular rhythm HEART SOUNDS: S1 normal heart sound present and S2 normal heart sound present GI: COMMON NORMALS: Normal to inspection, nondistended, normoactive bowel sounds present, Soft to palpation, non-tender, No hepatosplenomegaly present and no masses PALPATION: Yes Soft to palpation and Yes No hepatosplenomegaly present Neuro: COMMON NORMALS: patient oriented x3 SENSORIUM/ORIENTATION: Yes alert Course Vital Signs: Vital signs: Vital Signs Temperature 98.2 F 11/18/22 22:24 Pulse Rate 104 H 11/18/22 22:24 Respiratory Rate 16 11/18/22 22:24 Blood Pressure 142/73 11/18/22 22:24 Pulse Oximetry 100 11/18/22 22:24 MDM - Male Medical Decision Making Patient presents to the ER with complaints of urinary leakage around his Salazar catheter. Patient thinks his catheter has a clogged unit. Catheter was exchanged with a new wound and immediately produced urine. And did not leak. Patient be discharged home to follow-up with his PCP or urologist Differential Diagnosis Unlikely urinary tract infection, priapism, urethritis, epididymitis, genital herpes simplex, prostatitis, acute retention of urine or inguinal hernia Medical Records I reviewed the patient's medical records. Lab Data I reviewed the patient's lab results. Discharge Plan Discharge Patient Disposition: Home Clinical Impression: Salazar catheter problem Qualifiers: Encounter type: initial encounter Qualified Code(s): T83.9XXA - Unspecified complication of genitourinary prosthetic device, implant and graft, initial encounter Condition: Stable Prescriptions: No Action aspirin [Adult Low Dose Aspirin] 81 mg tablet,delayed release (DR/EC) 81 mg PO DAILY pantoprazole 40 mg tablet,delayed release (DR/EC) 40 mg PO DAILY carbidopa-levodopa 25-100 mg tablet 1 tab PO TID 90 Days Qty: 270 3RF Rx Instructions: Take 1 tab in AM, noon, and 4pm Levemir FlexTouch U-100 Insuln 100 unit/mL (3 mL) insulin pen 80 unit SUBCUT BID gabapentin 100 mg capsule 100 mg PO BID (DME) FreeStyle Regina 2 [place] Misc See Rx Instructions .Route Qty: 1 0RF Rx Instructions: As directed atorvastatin 40 mg tablet 40 mg PO DAILY clopidogrel 75 mg tablet 75 mg PO DAILY 90 Days Qty: 90 3RF metoprolol tartrate 50 mg tablet 50 mg PO BID Qty: 180 3RF primidone 50 mg tablet 50 mg PO DAILY Qty: 30 3RF Rx Instructions: Take one daily with supper. (DME) FreeStyle Regina 2 Sensor Kit See Rx Instructions .Route Qty: 6 0RF Rx Instructions: change every 14 days furosemide 40 mg tablet 40 mg PO BID Victoza 2-Kg 0.6 mg/0.1 mL (18 mg/3 mL) Pen Injector 1.8 mg SUBCUT DAILY naproxen sodium [Aleve] 220 mg tablet 220 mg PO Q12H PRN (Reason: Pain) polyethylene glycol 3350 [Miralax] 17 gram powder in packet 17 g PO DAILY PRN (Reason: constipation) Qty: 14 0RF cefdinir 300 mg capsule 300 mg PO BID Qty: 14 0RF lisinopril 20 mg tablet 20 mg PO DAILY isosorbide mononitrate 60 mg tablet extended release 24 hr 60 mg PO DAILY insulin lispro 100 unit/mL insulin pen 20 unit SUBCUT TID Rx Instructions: WITH MEALS cholecalciferol (vitamin D3) [Vitamin D3] 25 mcg (1,000 unit) Capsule 25 mcg PO DAILY Fish Oil 120-180 mg Capsule 1 cap PO DAILY cinnamon bark [Cinnamon] 500 mg Capsule 500 mg PO EVERY OTHER DAY Jardiance 25 mg tablet 25 mg PO DAILY tamsulosin 0.4 mg Capsule 0.4 mg PO DAILY Qty: 90 1RF finasteride 5 mg Tablet 5 mg PO DAILY Qty: 90 3RF Discharge Orders: Discharge ED (Routine); Ordered 11/18/22 Ordered By: Palomo Rodriguez Referrals: Roxana James FNP [Primary Care Provider] - 1 week Patient Instructions: Salazar Catheter Care Activity Restrictions/Additional Instructions: Please keep the appointment with your urologist as already scheduled. Please return to the ER if you have worsening problems with your Salazar catheter. Coding Level of Care Code ED Software Development Coordinator for Hugo Garcia
[2022-11-18 22:24] VITALS: BP 142/73; PULSE 104; RESP 16; TEMP 36.8; O2SAT 100
== END 2022-11-18 22:25 | disposition home or self-care (01) ==
PROVIDERS: Emergency Provider Emergency Medicine; PCP Nurse Practitioner Family
DX: T83.038A Leakage of other urinary catheter, initial encounter (principal); T83.091A Other mechanical complication of indwelling urethral catheter, initial encounter; Y83.8 Other surgical procedures as the cause of abnormal reaction of the patient, or of later complication, without mention of misadventure at the time of the procedure; I12.9 Hypertensive chronic kidney disease with stage 1 through stage 4 chronic kidney disease, or unspecified chronic kidney disease; N18.9 Chronic kidney disease, unspecified; E11.22 Type 2 diabetes mellitus with diabetic chronic kidney disease; E11.40 Type 2 diabetes mellitus with diabetic neuropathy, unspecified; E78.5 Hyperlipidemia, unspecified; I25.2 Old myocardial infarction; G20 Parkinson's disease; Z95.5 Presence of coronary angioplasty implant and graft; Z79.4 Long term (current) use of insulin; Z79.84 Long term (current) use of oral hypoglycemic drugs; Z79.82 Long term (current) use of aspirin; Z79.899 Other long term (current) drug therapy
CPT/HCPCS: 51702; 99283

== ENCOUNTER 2022-11-24 09:05 | Emergency (ER) | payer MEDICARE, MEDICAID, SELFPAY ==
--- NOTE | 2022-11-24 09:06 | XRR_ITS ---
PROCEDURE INFORMATION: Exam: XR Chest Exam date and time: 11/24/2022 9:21 AM Age: 67 years old Clinical indication: Cough and dyspnea; Additional info: Dyspnea/cough TECHNIQUE: Imaging protocol: Radiologic exam of the chest. Views: 1 view. COMPARISON: CR XR chest 1V portable [id number] 11/13/2022 5:46 PM FINDINGS: Lungs: Linear atelectasis versus scarring at the left lower lung. No consolidation. Pleural spaces: Unremarkable. No pleural effusion. No pneumothorax. Heart/Mediastinum: Unremarkable. No cardiomegaly. Bones/joints: Mild degenerative changes of the shoulders. XR/XR chest 1V portable [id number] IMPRESSION: No acute findings.
--- NOTE | 2022-11-24 09:07 | ECG_ITS ---
[facility] Test Date: 2022-11-24 Pat Name: Yaya Astudillo Department: Room: Gender: Male Weight Caller: : 1955 Requested By: Benito Rodríguez Order Number: [id number] Tr MD: Neil Galdamez M.D. Measurements Intervals [place] Rate: 80 P: 18 [place]: 178 QRS: -41 QRSD: 81 T: 57 QT: 362 QTc: 420 Interpretive Statements SINUS RHYTHM LEFT AXIS DEVIATION [QRS AXIS < -30] PATTERN CONSISTENT WITH PULMONARY DISEASE Compared to ECG 11/13/2022 23:58:22 Myocardial infarct finding no longer present Electronically Signed On 11-24-2022 9:56:56 CDT by Neil Galdamez M.D. [id number]
--- NOTE | 2022-11-24 09:08 | W.ED.GENADLT ---
HPI - General Adult General: Chief complaint: Dizziness Stated complaint: dizziness while standing Time Seen by Provider: 11/24/22 09:06 Source: patient Mode of arrival: ambulatory History of Present Illness: 67 yo male presents to the emergency room complaining of dizziness when he first stands up. Began around 2 AM this morning. They have been adjusting some of his medications stopped some of his antihypertensive because he was getting weak lightheaded and dizzy when he stood. No focal neurologic deficits he denies chest pain. No difficulty with speech or vision or swallowing. He was seen 2 weeks ago had a Salazar catheter in place which is intermittently become obstructed due to bladder infection he was admitted and treated for that with cefdinir he tells me at that time they stopped some of his blood pressure medications because of hypotension. Onset (ago): hour(s) Severity: moderate Relieving factors: none Exacerbating factors: none Associated symptoms: Deny chest pain, confusion, cough, diaphoresis, decreased appetite, dyspnea, fevers/chills, headache(s), malaise, nausea, rash, palpitations, seizures, short of breath, syncope, vomiting or weakness Treatments prior to arrival: none Review of Systems Const: Denies: fever(s), chills, malaise or diaphoresis Card: Denies: chest pain, palpitations or syncope Resp: Denies: dyspnea, productive cough or non-productive cough GI: Denies: abdominal pain, nausea or vomiting : Denies: flank pain, dysuria, urinary frequency or urinary urgency Musc: Denies: neck pain or back pain Skin/Breast: Denies: rash Neuro: Denies: headache(s) or confusion PFS ED PFSH: Medical History Acute on chronic renal failure Acute renal failure ASHD (arteriosclerotic heart disease) Chronic diarrhea CKD (chronic kidney disease) (~10/12/20) Cough Diabetes Diabetic foot ulcer Diabetic neuropathy associated with type 2 diabetes mellitus Essential tremor Exposure to COVID-19 virus HTN (hypertension) Hyperlipidemia Myocardial infarction Obesity Ophthalmoplegia CÉSAR (obstructive sleep apnea) Parkinson disease Urinary retention Urinary tract infection Surgical History S/P angioplasty with stent S/P eye surgery Status post amputation of toe Status post colonoscopy (12/24/20) sigmoid polyp Family History Mother CAD (coronary artery disease) Diabetes Social History Smoking and tobacco status: never smoked Alcohol intake: former Substance/Drug Use: never Lives independently: Yes Household members: other Details: DOG Marital status: service: No Current occupational status: disabled 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 Physical Exam Const: GENERAL APPEARANCE: cooperative and comfortable ORIENTATION/CONSCIOUSNESS: Yes awake, Yes oriented to person, Yes oriented to place and Yes oriented to time HENMT: COMMON NORMALS: normocephalic, atraumatic and hearing grossly normal bilaterally HEAD & SCALP: normocephalic and atraumatic Resp: COMMON NORMALS: normal respiratory effort, No retractions, No use of accessory muscles and clear to auscultation bilaterally AUSCULTATION: clear to auscultation bilaterally Cardio: COMMON NORMALS: regular rate, regular rhythm and No murmurs present (Cardio) RATE: regular rate RHYTHM: regular rhythm GI: COMMON NORMALS: Soft to palpation and No hepatosplenomegaly present AUSCULTATION: Yes normoactive bowel sounds PALPATION: Yes Soft to palpation, No Tenderness to palpation present (GI), No Guarding due to palpation present (GI) and Yes No hepatosplenomegaly present Extremity: COMMON NORMALS: normal to inspection, capillary refill normal, no clubbing, cyanosis or edema, no calf tenderness and no pedal edema Neuro: SENSORIUM/ORIENTATION: Yes oriented to person, Yes oriented to place and Yes oriented to time OTHER: No focal neurologic deficit noted no facial asymmetry roller gold leaf strength equal bilaterally. No slurring of his speech. Normal visual lambert. Skin: COMMON NORMALS: no rashes or lesions noted GENERAL SKIN EXAM: no rashes or lesions noted Course Vital Signs: Vital signs: Vital Signs Temperature 98.2 F 11/24/22 09:12 Pulse Rate 99 11/24/22 12:07 Respiratory Rate 16 11/24/22 10:54 Blood Pressure 103/83 11/24/22 12:07 Pulse Oximetry 96 11/24/22 10:54 Oxygen Delivery Me thod Room Air 11/24/22 10:12 [facility] - General Adult Medical Decision Making Patient improved with fluids. We will cut his Lasix and his isosorbide both in half. He does have a bladder infection and is currently on cefdinir and continue that medication. His Parkinson's is likely also contributing to his orthostasis. We did have the patient up and ambulate. He was able to do so independently. He does have a cane and walker at home that he can use. Recommend that he follow-up with his primary care doctor within the next few days to reevaluate. Medical Records I reviewed the patient's medical records. Lab Data I reviewed the patient's lab results. 11/24/22 08:35 11/24/22 08:35 Radiology Impressions Chest X-Ray 11/24/22 09:06 IMPRESSION: No acute findings. Laboratory Results WBC 11.1 10^3/uL (4.0-10.0) H 11/24/22 08:35 RBC 5.05 10^6/uL (4.1-5.3) 11/24/22 08:35 Hgb 14.1 g/dL (11.7-16.6) 11/24/22 08:35 Hct 43.4 % (42.0-52.0) 11/24/22 08:35 MCV 85.9 fl (80-94) 11/24/22 08:35 MCH 27.9 pg (28.0-34.0) L 11/24/22 08:35 MCHC 32.5 g/dL (30.0-36.0) 11/24/22 08:35 RDW 13.8 % (12.1-15.1) 11/24/22 08:35 Plt Count 279 10^3/cmm (130-400) 11/24/22 08:35 MPV 11.5 fL (7.4-10.4) H 11/24/22 08:35 Neut % (Auto) 74.7 % 11/24/22 08:35 Lymph % (Auto) 17.5 % 11/24/22 08:35 [place] % (Auto) 6.1 % 11/24/22 08:35 Eos % (Auto) 0.8 % 11/24/22 08:35 Baso % (Auto) 0.5 % 11/24/22 08:35 Neut # (Auto) 8.31 10^3/uL (1.8-7.7) H 11/24/22 08:35 Lymph # (Auto) 2.0 10^3/uL (0.8-4.8) 11/24/22 08:35 [place] # (Auto) 0.7 10^3/uL (0.2-0.9) 11/24/22 08:35 Eos # (Auto) 0.1 10^3/uL (0.0-0.8) 11/24/22 08:35 Baso # (Auto) 0.1 10^3/uL (0.0-0.1) 11/24/22 08:35 Nucleated RBC % (auto) 0 % 11/24/22 08:35 Nucleated RBCs # 0.0 /100WBC 11/24/22 08:35 Sodium 137 mmol/L (136-145) 11/24/22 08:35 Potassium 4.9 mmol/L (3.5-5.1) 11/24/22 08:35 Chloride 97 mmol/L (98-107) L 11/24/22 08:35 Carbon Dioxide 24 mmol/L (22-29) 11/24/22 08:35 Anion Gap 20.9 (5-19) H 11/24/22 08:35 BUN 59 mg/dL (8-23) H 11/24/22 08:35 Creatinine 2.4 mg/dL (0.7-1.2) H 11/24/22 08:35 GFR Calculation 27.1 mL/min (90-130) L 11/24/22 08:35 Glucose 145 mg/dL (65-115) H 11/24/22 08:35 Calculated Osmolality 303 mOsm/kg (285-295) H 11/24/22 08:35 Calcium 10.0 mg/dL (8.5-10.5) 11/24/22 08:35 Total Bilirubin 0.5 mg/dL (0.15-1.2) 11/24/22 08:35 AST 14 U/L (0-40) 11/24/22 08:35 ALT < 5 U/L (0-41) 11/24/22 08:35 Alkaline Phosphatase 126 U/L (40-130) 11/24/22 08:35 Troponin T Baseline 35 ng/L (0-15) H 11/24/22 08:35 Troponin T 120 Minute 27.86 ng/L (0-15) H 11/24/22 10:30 Delta Troponin T -7.14 ABS# (0-10) L 11/24/22 10:30 Total Protein 8.0 g/dL (6.6-8.7) 11/24/22 08:35 Albumin 4.5 g/dL (3.5-5.2) 11/24/22 08:35 Globulin 3.5 g/dL (1.3-4.6) 11/24/22 08:35 Urine Color Dark yellow (Yellow) 11/24/22 10:40 Urine Appearance Turbid (CLEAR) A 11/24/22 10:40 Urine pH 5 (5-7) 11/24/22 10:40 Ur Specific [place] 1.020 (1.005-1.030) 11/24/22 10:40 Urine Protein 3+ (Negative) H 11/24/22 10:40 Urine Glucose (UA) 4+ (Normal) H 11/24/22 10:40 Urine Ketones 1+ (Negative) H 11/24/22 10:40 Urine Blood 3+ (Negative) H 11/24/22 10:40 Urine Nitrate Negative (Negative) 11/24/22 10:40 Urine Bilirubin 1+ (Negative) H 11/24/22 10:40 Urine Urobilinogen Norm mg/dL (Negative) 11/24/22 10:40 Ur Leukocyte Esterase 2+ (Negative) H 11/24/22 10:40 Urine RBC 15-25 /hpf (0-2) H 11/24/22 10:40 Urine WBC Too numerous to cnt /hpf (0-5) H 11/24/22 10:40 Ur Squamous Epith Cells None /hpf (0-5) 11/24/22 10:40 Amorphous Sediment Not Reportable 11/24/22 10:40 Urine Bacteria 2+ /hpf (NONE) H 11/24/22 10:40 Discharge Plan Discharge Patient Disposition: Home Clinical Impression: Medication side effects, Parkinson disease, CKD (chronic kidney disease), Orthostatic hypotension Condition: Stable Prescriptions: New Lasix 20 mg tablet 20 mg PO BID Qty: 60 0RF isosorbide mononitrate 30 mg tablet extended release 24 hr 30 mg PO DAILY Qty: 30 0RF Discontinued furosemide 40 mg tablet 40 mg PO BID isosorbide mononitrate 60 mg tablet extended release 24 hr 60 mg PO DAILY No Action aspirin [Adult Low Dose Aspirin] 81 mg tablet,delayed release (DR/EC) 81 mg PO DAILY pantoprazole 40 mg tablet,delayed release (DR/EC) 40 mg PO DAILY carbidopa-levodopa 25-100 mg tablet 1 tab PO TID 90 Days Qty: 270 3RF Rx Instructions: Take 1 tab in AM, noon, and 4pm Levemir FlexTouch U-100 Insuln 100 unit/mL (3 mL) insulin pen 80 unit SUBCUT BID gabapentin 100 mg capsule 100 mg PO BID (DME) FreeStyle Regina 2 [place] Misc See Rx Instructions .Route Qty: 1 0RF Rx Instructions: As directed atorvastatin 40 mg tablet 40 mg PO DAILY clopidogrel 75 mg tablet 75 mg PO DAILY 90 Days Qty: 90 3RF metoprolol tartrate 50 mg tablet 50 mg PO BID Qty: 180 3RF primidone 50 mg tablet 50 mg PO DAILY Qty: 30 3RF Rx Instructions: Take one daily with supper. (DME) FreeStyle Regina 2 Sensor Kit See Rx Instructions .Route Qty: 6 0RF Rx Instructions: change every 14 days Victoza 2-Kg 0.6 mg/0.1 mL (18 mg/3 mL) Pen Injector 1.8 mg SUBCUT DAILY naproxen sodium [Aleve] 220 mg tablet 220 mg PO Q12H PRN (Reason: Pain) polyethylene glycol 3350 [Miralax] 17 gram powder in packet 17 g PO DAILY PRN (Reason: constipation) Qty: 14 0RF cefdinir 300 mg capsule 300 mg PO BID Qty: 14 0RF insulin lispro 100 unit/mL insulin pen 25 unit SUBCUT TID Rx Instructions: WITH MEALS fluconazole 150 mg tablet 150 mg PO DAILY hyoscyamine sulfate 0.125 mg tablet 0.125 mg PO DAILY rosuvastatin 10 mg tablet 10 mg PO DAILY cholecalciferol (vitamin D3) [Vitamin D3] 25 mcg (1,000 unit) Capsule 25 mcg PO DAILY Fish Oil 120-180 mg Capsule 1 cap PO DAILY cinnamon bark [Cinnamon] 500 mg Capsule 500 mg PO EVERY OTHER DAY Jardiance 25 mg tablet 25 mg PO DAILY tamsulosin 0.4 mg Capsule 0.4 mg PO DAILY Qty: 90 1RF finasteride 5 mg Tablet 5 mg PO DAILY Qty: 90 3RF Discharge Orders: Discharge ED (Routine); Ordered 11/24/22 Ordered By: Benito Evans Referrals: Roxana James FNP [Primary Care Provider] - Patient Instructions: Opioid Safety, Pain Management Activity Restrictions/Additional Instructions: Decrease Lasix and isosorbide mononitrate. Continue oral antibiotics follow-up with your primary care doctor within the next week. Coding Level of Care Code ED Maintenance Of Way Superintendent for Hugo Garcia
[2022-11-24 09:12] VITALS: BP 90/53; PULSE 83; RESP 18; TEMP 36.8; O2SAT 100; BMI 30.9
[2022-11-24 09:27] LABS: Basophils # 0.1 10^3/uL (0.0-0.1); Basophils % 0.5 %; Eosinophils # 0.1 10^3/uL (0.0-0.8); Eosinophils % 0.8 %; Hematocrit 43.4 % (42.0-52.0); Hemoglobin 14.1 g/dL (11.7-16.6); Lymphocytes % 17.5 %; Mean Corpuscular HGB Conc 32.5 g/dL (30.0-36.0); Mean Corpuscular Hemoglobin 27.9 pg (28.0-34.0); Mean Corpuscular Volume 85.9 fl (80-94); Mean Platelet Volume 11.5 fL (7.4-10.4); Monocytes # 0.7 10^3/uL (0.2-0.9); Monocytes % 6.1 %; Neutrophils # 8.31 10^3/uL (1.8-7.7); Neutrophils % 74.7 %; Nucleated Red Blood Cells % 0 %; Platelet Count 279 10^3/cmm (130-400); Red Blood Count 5.05 10^6/uL (4.1-5.3); Red Cell Distribution Width 13.8 % (12.1-15.1); White Blood Count 11.1 10^3/uL (4.0-10.0)
[2022-11-24 09:29] VITALS: BP 75/49; BP 88/48; PULSE 81; PULSE 87
--- NOTE | 2022-11-24 09:37 | PC.NURSE ---
during orthostatic vs, pt unable to stand due to dizziness.
[2022-11-24 09:46] LABS: Troponin(5th) Baseline 35 ng/L (0-15)
[2022-11-24 09:47] LABS: Alanine Aminotransferase < 5 U/L (0-41); Albumin Level 4.5 g/dL (3.5-5.2); Alkaline Phosphatase 126 U/L (40-130); Blood Urea Nitrogen 59 mg/dL (8-23); Carbon Dioxide 24 mmol/L (22-29); Chloride 97 mmol/L (98-107); Globulin 3.5 g/dL (1.3-4.6); Glomerular Filtration Rate 27.1 mL/min (90-130); Glucose 145 mg/dL (65-115); Osmolality Calculated 303 mOsm/kg (285-295); Sodium 137 mmol/L (136-145); Total Bilirubin 0.5 mg/dL (0.15-1.2)
[2022-11-24] MEDS: sodium chloride 0.9% 1,000 ML 999 ML IV (10:06)
[2022-11-24 10:12] VITALS: BP 95/63; PULSE 80; RESP 14; O2SAT 95
[2022-11-24 10:15] LABS: Anion Gap 20.9 (5-19); Aspartate Amino Transferase 14 U/L (0-40); Potassium 4.9 mmol/L (3.5-5.1)
[2022-11-24 10:54] VITALS: BP 105/64; PULSE 102; RESP 16; O2SAT 96
[2022-11-24 10:58] LABS: Troponin 5 2HR 27.86 ng/L (0-15)
[2022-11-24 11:01] LABS: Troponin 5 2HR Delta -7.14 ABS# (0-10)
--- NOTE | 2022-11-24 11:19 | ECG_ITS ---
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 Measurements Intervals [place] Rate: 100 P: 8 MA: 188 QRS: -37 QRSD: 101 T: 50 QT: 349 QTc: 450 Interpretive Statements SINUS TACHYCARDIA LEFT AXIS DEVIATION [QRS AXIS < -30] PATTERN CONSISTENT WITH PULMONARY DISEASE Compared to ECG 11/24/2022 09:19:16 Sinus rhythm no longer present Electronically Signed On 11-24-2022 14:26:24 CDT by Neil Galdamez M.D. [id number]
[2022-11-24 11:25] LABS: Protein Urine 3+ (Negative); Urine Appearance Turbid (CLEAR); Urine Color Dark Yellow (Yellow); pH Urine 5 (5-7)
[2022-11-24 11:26] LABS: Add Urine Culture? Yes; Add Urine Microscopic? YES; Bacteria Urine 2+ /hpf; Bilirubin Urine 1+ (Negative); Blood Urine 3+ (Negative); Glucose Urine UA 4+ (Normal); Ketones Urine 1+ (Negative); Leukocyte Esterase Urine 2+ (Negative); Nitrate Urine Negative (Negative); RBC Urine 15-25 /hpf (0-2); Urobilinogen Urine Norm (Negative); WBC Urine TOO NUMEROUS TO CNT /hpf (0-5)
[2022-11-24 12:07] VITALS: BP 103/83; BP 90/55; BP 90/69; PULSE 102; PULSE 107; PULSE 99
--- NOTE | 2022-11-24 12:09 | PC.NURSE ---
pt standing for orthostatics. denies any dizziness at this time.
== END 2022-11-24 13:02 | disposition home or self-care (01) ==
PROVIDERS: Emergency Provider Family Medicine; PCP Nurse Practitioner Family
DX: I95.1 Orthostatic hypotension (principal); G20 Parkinson's disease; E11.22 Type 2 diabetes mellitus with diabetic chronic kidney disease; I12.9 Hypertensive chronic kidney disease with stage 1 through stage 4 chronic kidney disease, or unspecified chronic kidney disease; N18.9 Chronic kidney disease, unspecified; T36.1X5A Adverse effect of cephalosporins and other beta-lactam antibiotics, initial encounter; Z79.82 Long term (current) use of aspirin; Z79.02 Long term (current) use of antithrombotics/antiplatelets; Z79.4 Long term (current) use of insulin; E78.5 Hyperlipidemia, unspecified; I25.2 Old myocardial infarction
CPT/HCPCS: 71045; 80053; 81001; 84484; 85025; 87086; 87106; 93005; 96360; 96361; 99285; J7030

== ENCOUNTER → 2022-12-02 10:17 | Outpatient (BNVA) | payer MEDICARE, MEDICAID, SELFPAY | PROVIDERS: PCP Nurse Practitioner Family; Referring Provider Nurse Practitioner Family; Visit Provider Student in an Organized Health Care Education/Training Program | DX: S50.02XA Contusion of left elbow, initial encounter; V89.2XXA Person injured in unspecified motor-vehicle accident, traffic, initial encounter | CPT/HCPCS: 73080; 99203 ==

== ENCOUNTER 2022-12-16 15:38 | Outpatient (CLI) | payer MEDICARE, MEDICAID, SELFPAY ==
[2022-12-16 16:50] LABS: Basophils % 0.6 %; Eosinophils # 0.1 10^3/uL (0.0-0.8); Eosinophils % 1.6 %; Lymphocytes # 1.4 10^3/uL (0.8-4.8); Lymphocytes % 20.1 %; Mean Corpuscular HGB Conc 34.3 g/dL (30-55); Mean Corpuscular Hemoglobin 29.9 pg (27-33); Mean Corpuscular Volume 87.1 fl (82-101); Mean Platelet Volume 11.1 fL (7.4-10.4); Monocytes # 0.6 10^3/uL (0.2-0.9); Monocytes % 9.2 %; Neutrophils # 4.56 10^3/uL (1.8-7.7); Neutrophils % 67.9 %; Nucleated Red Blood Cells % 0 %; Platelet Count 203 10^3/cmm (157-399); Red Blood Count 4.25 10^6/uL (3.85-5.65); Red Cell Distribution Width 15.5 % (12.1-15.1); White Blood Count 6.72 10^3/uL (3.29-11.43)
[2022-12-16 17:02] LABS: Albumin Level 4.2 g/dL (3.5-5.2); Anion Gap 16.3 (5-19); Blood Urea Nitrogen 40 mg/dL (8-23); Calcium 9.4 mg/dL (8.5-10.5); Carbon Dioxide 26 mmol/L (22-29); Chloride 96 mmol/L (98-107); Glomerular Filtration Rate 46.7 mL/min (90-130); Glucose 355 mg/dL (65-115); Phosphorus 2.6 mg/dL (2.5-4.5); Potassium 3.3 mmol/L (3.5-5.1); Sodium 135 mmol/L (136-145)
[2022-12-16 17:03] LABS: Calcium 9.6 mg/dL (8.5-10.5)
[2022-12-16 17:07] LABS: Creatinine Urine, Random 36 mg/dL (39-259); Microalbumin Random Urine 4 ug/dL (0-20)
[2022-12-16 17:11] LABS: Microalbum Creatinine Ratio Ur 111 mg/dL (0-20)
[2022-12-16 17:11] LABS: Parathyroid Hormone 49.4 pg/mL (15-65)
== END 2022-12-16 15:39 | disposition home or self-care (01) ==
PROVIDERS: PCP Nurse Practitioner Family; Visit Provider Registered Nurse
DX: N18.31 Chronic kidney disease, stage 3a (principal)
CPT/HCPCS: 36415; 80069; 82044; 82310; 83970; 85025

== ENCOUNTER 2023-01-05 11:21 | Outpatient (CLI) | payer MEDICARE, MEDICAID, SELFPAY ==
[2023-01-05 12:21] LABS: Anion Gap 12.4 (5-19); Blood Urea Nitrogen 24 mg/dL (8-23); Calcium 9.2 mg/dL (8.5-10.5); Carbon Dioxide 28 mmol/L (22-29); Chloride 101 mmol/L (98-107); Glomerular Filtration Rate 55.1 mL/min (90-130); Glucose 276 mg/dL (65-115); Osmolality Calculated 300 mOsm/kg (285-295); Potassium 3.4 mmol/L (3.5-5.1); Sodium 138 mmol/L (136-145)
== END 2023-01-05 11:22 | disposition home or self-care (01) ==
LOC: LAB 11:24
PROVIDERS: PCP Nurse Practitioner Family; Visit Provider Registered Nurse
DX: E87.6 Hypokalemia (principal); N18.31 Chronic kidney disease, stage 3a
CPT/HCPCS: 36415; 80048

== ENCOUNTER 2023-01-16 08:37 | Outpatient (CLI) | payer MEDICARE, MEDICAID, SELFPAY ==
[2023-01-16 09:19] LABS: Estmated Average Glucose 235; Hemoglobin A1C 9.8 % (4.0-6.0)
[2023-01-16 09:27] LABS: Alanine Aminotransferase 8 U/L (0-41); Alkaline Phosphatase 166 U/L (40-130); Anion Gap 13.6 (5-19); Aspartate Amino Transferase 16 U/L (0-40); Blood Urea Nitrogen 30 mg/dL (8-23); Calcium 9.1 mg/dL (8.5-10.5); Carbon Dioxide 28 mmol/L (22-29); Chloride 94 mmol/L (98-107); Cholesterol 108 mg/dL (0-200); Globulin 2.8 g/dL (1.3-4.6); Glomerular Filtration Rate 50.5 mL/min (90-130); HDL Cholesterol 30 mg/dL (60-100); LDL Cholesterol Calculated 29 mg/dL (50-129); LDL HDL Ratio 0.97 RATIO (0.00-3.22); Osmolality Calculated 305 mOsm/kg (285-295); Potassium 4.6 mmol/L (3.5-5.1); Sodium 131 mmol/L (136-145); Total Bilirubin 0.5 mg/dL (0.15-1.2); Total Protein 6.8 g/dL (6.6-8.7); Triglycerides 245 mg/dL (0-150)
[2023-01-16 09:46] LABS: Phosphorus 4.2 mg/dL (2.5-4.5)
[2023-01-16 09:57] LABS: Creatinine Urine, Random 18 mg/dL (39-259); Microalbumin Random Urine 4 ug/dL (0-20)
[2023-01-16 10:14] LABS: Microalbum Creatinine Ratio Ur 222 mg/dL (0-20)
[2023-01-16 11:52] LABS: Glucose 583 mg/dL (65-115)
== END 2023-01-16 08:38 | disposition home or self-care (01) ==
LOC: LAB 08:43
PROVIDERS: PCP Nurse Practitioner Family; Referring Provider Registered Nurse; Visit Provider Internal Medicine
DX: E11.40 Type 2 diabetes mellitus with diabetic neuropathy, unspecified (principal); E11.9 Type 2 diabetes mellitus without complications; E78.5 Hyperlipidemia, unspecified
CPT/HCPCS: 36415; 80053; 80061; 82044; 83036; 84100

== ENCOUNTER → 2023-01-21 08:52 | Outpatient (BNVA) | payer MEDICARE, MEDICAID, SELFPAY | PROVIDERS: PCP Nurse Practitioner Family; Visit Provider Internal Medicine | DX: E11.40 Type 2 diabetes mellitus with diabetic neuropathy, unspecified; E78.5 Hyperlipidemia, unspecified; Z79.4 Long term (current) use of insulin | CPT/HCPCS: 99214 ==

== ENCOUNTER → 2023-04-23 09:17 | Outpatient (BNVA) | payer MEDICARE, MEDICAID, SELFPAY | PROVIDERS: PCP Nurse Practitioner Family; Visit Provider Internal Medicine | DX: E11.40 Type 2 diabetes mellitus with diabetic neuropathy, unspecified; E78.5 Hyperlipidemia, unspecified; Z79.4 Long term (current) use of insulin; Z79.85 Long-term (current) use of injectable non-insulin antidiabetic drugs | CPT/HCPCS: 99214 ==

== ENCOUNTER 2023-06-16 15:13 | Emergency (ER) | payer MEDICARE, MEDICAID, SELFPAY ==
[2023-06-16 15:15] VITALS: BP 135/78; PULSE 88; TEMP 36.6; O2SAT 96; BMI 32.2
--- NOTE | 2023-06-16 15:16 | XRR_ITS ---
PROCEDURE INFORMATION: Exam: XR Chest Exam date and time: 06/16/2023 3:22 PM Age: 67 years old Clinical indication: Pain; Angina pectoris; Additional info: Chest pain TECHNIQUE: Imaging protocol: Radiologic exam of the chest. Views: 1 view. COMPARISON: CR XR chest 1V portable [id number] 11/24/2022 9:21 AM FINDINGS: Lungs: Unremarkable. No consolidation. Pleural spaces: Unremarkable. No pleural effusion. No pneumothorax. Heart/Mediastinum: Unremarkable. No cardiomegaly. Bones/joints: Unremarkable. XR/XR chest 1V portable [id number] IMPRESSION: No acute findings.
--- NOTE | 2023-06-16 15:18 | ECG_ITS ---
[facility] Test Date: 2023-06-16 Pat Name: Yaya Astudillo Department: Room: Gender: Male Senior Clinical Study Manager: : 1955 Requested By: Benito Rodríguez Order Number: [id number] Tr MD: Lizeth Veliz M.D. Measurements Intervals [place] Rate: 88 P: 30 VA: 214 QRS: -45 QRSD: 86 T: 75 QT: 368 QTc: 447 Interpretive Statements SINUS RHYTHM WITH FIRST DEGREE AV BLOCK LEFT AXIS DEVIATION [QRS AXIS < -30] POSSIBLE ANTERIOR MYOCARDIAL INFARCTION , OF INDETERMINATE AGE [30 ms Q WAVE IN V3/V4, OR R < 0.2 mV IN V4] Compared to ECG 11/24/2022 11:19:22 First degree AV block now present Myocardial infarct finding now present Sinus tachycardia no longer present Electronically Signed On 06-16-2023 18:30:38 FRAME TRIMMER by Lizeth Veliz M.D. [email or web address].[employer]/store/[id number] f
[2023-06-16 15:34] LABS: Basophils # 0.1 10^3/uL (0.0-0.1); Basophils % 0.8 %; Eosinophils # 0.1 10^3/uL (0.0-0.8); Hematocrit 42.2 % (37-53); Lymphocytes # 1.5 10^3/uL (0.8-4.8); Lymphocytes % 24.1 %; Mean Corpuscular HGB Conc 33.2 g/dL (30-55); Mean Corpuscular Hemoglobin 29.6 pg (27-33); Mean Corpuscular Volume 89.2 fl (82-101); Monocytes # 0.3 10^3/uL (0.2-0.9); Monocytes % 5.1 %; Neutrophils # 4.11 10^3/uL (1.8-7.7); Neutrophils % 67.7 %; Nucleated Red Blood Cells % 0 %; Platelet Count 205 10^3/cmm (157-399); Red Blood Count 4.73 10^6/uL (3.85-5.65); Red Cell Distribution Width 13.4 % (12.1-15.1); White Blood Count 6.07 10^3/uL (3.29-11.43)
--- NOTE | 2023-06-16 15:48 | ED_ITS ---
HPI - Chest Pain 2 General: Chief Complaint: Chest Pain Stated Complaint: chest pain Time Seen by Provider: 06/16/23 15:16 Source: patient Mode of arrival: ambulatory History of Present Illness: 7-year-old male presents emergency room with complaint of chest pain he has had intermittent chest pain last few days come on while at rest he had 1 episode last night that was relieved by nitro. He began again this morning and has been persisting throughout the day he states he has a history of coronary disease and has previously had multiple stents up to 6 stents all done at our facility however I do not see any documentation of previous oil laboratory analyst reports on our EMR. There is notation in her previous office visit citing multiple stents placed at other locations outside of [facility] in the past decade. MD complaint: chest pain Pertinent past history: coronary artery disease Onset (ago): day(s) Timing of current episode: episodic Onset: during rest Pain location: left chest Pain radiation: left arm and left shoulder Severity: moderate Relieving factors: nothing Exacerbating factors: nothing Associated symptoms: Deny abdominal pain, dyspnea or fever(s) Treatment prior to arrival: aspirin and nitroglycerin Review of Systems 2 Const: Denies: fever(s) or chills Card: Denies: chest pain Resp: Denies: dyspnea GI: Denies: abdominal pain : Denies: dysuria, urinary frequency or urinary urgency Musc: Denies: neck pain or back pain Skin/Breast: Denies: rash PFSH ED 2 PFSH: Medical History Acute on chronic renal failure Urinary tract infection Urinary retention Acute renal failure Ophthalmoplegia Parkinson disease Diabetic neuropathy associated with type 2 diabetes mellitus Essential tremor Cough Exposure to COVID-19 virus Chronic diarrhea Diabetic foot ulcer CÉSAR (obstructive sleep apnea) CKD (chronic kidney disease) (~10/12/20) Hyperlipidemia HTN (hypertension) Obesity Myocardial infarction ASHD (arteriosclerotic heart disease) Diabetes Surgical History S/P eye surgery Status post colonoscopy (12/24/20) sigmoid polyp Status post amputation of toe S/P angioplasty with stent Family History Mother CAD (coronary artery disease) Diabetes Social History Smoking and tobacco/nicotine status: never used tobacco/nicotine Alcohol intake: former Substance/Drug Use: never Lives independently: Yes Household members: other Details: DOG Marital status: service: No Current occupational status: disabled 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 Physical Exam 2 Const: COMMON NORMALS: no acute distress GENERAL APPEARANCE: cooperative and comfortable ORIENTATION/CONSCIOUSNESS: Yes awake, Yes oriented to person, Yes oriented to place and Yes oriented to time HENMT: COMMON NORMALS: normocephalic, atraumatic and hearing grossly normal bilaterally HEAD & SCALP: normocephalic and atraumatic Resp: COMMON NORMALS: normal respiratory effort, No retractions, No use of accessory muscles and clear to auscultation bilaterally AUSCULTATION: clear to auscultation bilaterally Cardio: COMMON NORMALS: regular rate, regular rhythm and No murmurs present (Cardio) RATE: regular rate RHYTHM: regular rhythm GI: COMMON NORMALS: Soft to palpation and No hepatosplenomegaly present A USCULTATION: Yes normoactive bowel sounds PALPATION: Yes Soft to palpation, No Tenderness to palpation present (GI), No Guarding due to palpation present (GI) and Yes No hepatosplenomegaly present Extremity: COMMON NORMALS: normal to inspection, capillary refill normal, no clubbing, cyanosis or edema, no calf tenderness and no pedal edema Neuro: SENSORIUM/ORIENTATION: Yes oriented to person, Yes oriented to place and Yes oriented to time Skin: COMMON NORMALS: no rashes or lesions noted GENERAL SKIN EXAM: no rashes or lesions noted Course 2 Vital Signs: Vital signs: Vital Signs Temperature 98 F 06/16/23 15:15 Pulse Rate 88 06/16/23 15:15 Blood Pressure 135/78 06/16/23 15:15 Pulse Oximetry 96 06/16/23 15:15 Oxygen Delivery Me thod Room Air 06/16/23 15:15 MDM - Chest Pain Medical Decision Making Labs and imaging reviewed troponins negative EKG does not show any acute changes at this time. Patient has not had any further symptoms will discharge patient home with isosorbide mononitrate daily. Have him follow-up with cardiology. Outpatient Lexiscan sestamibi stress test Medical Records I reviewed the patient's medical records. Lab Data I reviewed the patient's lab results. 06/16/23 14:25 06/16/23 14:25 Radiology Impressions Chest X-Ray 06/16/23 15:16 IMPRESSION: No acute findings. Laboratory Results WBC 6.07 10^3/uL (3.29-11.43) 06/16/23 14:25 RBC 4.73 10^6/uL (3.85-5.65) 06/16/23 14:25 Hgb 14.00 g/dL (11.27-16.99) 06/16/23 14:25 Hct 42.2 % (37-53) 06/16/23 14:25 MCV 89.2 fl (82-101) 06/16/23 14:25 MCH 29.6 pg (27-33) 06/16/23 14:25 MCHC 33.2 g/dL (30-55) 06/16/23 14:25 RDW 13.4 % (12.1-15.1) 06/16/23 14:25 Plt Count 205 10^3/cmm (157-399) 06/16/23 14:25 MPV 12.0 fL (7.4-10.4) H 06/16/23 14:25 Neut % (Auto) 67.7 % 06/16/23 14:25 Lymph % (Auto) 24.1 % 06/16/23 14:25 [place] % (Auto) 5.1 % 06/16/23 14:25 Eos % (Auto) 2.0 % 06/16/23 14:25 Baso % (Auto) 0.8 % 06/16/23 14:25 Neut # (Auto) 4.11 10^3/uL (1.8-7.7) 06/16/23 14:25 Lymph # (Auto) 1.5 10^3/uL (0.8-4.8) 06/16/23 14:25 [place] # (Auto) 0.3 10^3/uL (0.2-0.9) 06/16/23 14:25 Eos # (Auto) 0.1 10^3/uL (0.0-0.8) 06/16/23 14:25 Baso # (Auto) 0.1 10^3/uL (0.0-0.1) 06/16/23 14:25 Nucleated RBC % (auto) 0 % 06/16/23 14:25 Nucleated RBCs # 0.0 /100WBC 06/16/23 14:25 Sodium 132 mmol/L (136-145) L 06/16/23 14:25 Potassium 4.5 mmol/L (3.5-5.1) 06/16/23 14:25 Chloride 95 mmol/L (98-107) L 06/16/23 14:25 Carbon Dioxide 21 mmol/L (22-29) L 06/16/23 14:25 Anion Gap 20.5 (5-19) H 06/16/23 14:25 BUN 31 mg/dL (8-23) H 06/16/23 14:25 Creatinine 1.6 mg/dL (0.7-1.2) H 06/16/23 14:25 GFR Calculation 43.3 mL/min (90-130) L 06/16/23 14:25 Glucose 500 mg/dL (65-115) H 06/16/23 14:25 Calculated Osmolality 303 mOsm/kg (285-295) H 06/16/23 14:25 Calcium 8.4 mg/dL (8.5-10.5) L 06/16/23 14:25 Total Bilirubin 0.6 mg/dL (0.15-1.2) 06/16/23 14:25 AST 36 U/L (0-40) 06/16/23 14:25 ALT 8 U/L (0-41) 06/16/23 14:25 Alkaline Phosphatase 121 U/L (40-130) 06/16/23 14:25 Troponin T Baseline 25 ng/L (0-15) H 06/16/23 14:25 Troponin T 120 Minute 23.43 ng/L (0-15) H 06/16/23 16:15 Delta Troponin T -1.57 ABS# (0-10) L 06/16/23 16:15 Total Protein 6.7 g/dL (6.6-8.7) 06/16/23 14:25 Albumin 3.9 g/dL (3.5-5.2) 06/16/23 14:25 Globulin 2.8 g/dL (1.3-4.6) 06/16/23 14:25 All radiology interpretation(s) finalized by discharge Discharge Plan Discharge Patient Disposition: Home Clinical Impression: Atypical chest pain, ASHD (arteriosclerotic heart disease), Diabetic neuropathy associated with type 2 diabetes mellitus, CKD (chronic kidney disease) Condition: Stable Prescriptions: New isosorbide mononitrate 60 mg tablet extended release 24 hr 60 mg PO DAILY Qty: 30 0RF Discontinued isosorbide mononitrate 30 mg tablet extended release 24 hr 30 mg PO DAILY Qty: 30 0RF No Action aspirin [Adult Low Dose Aspirin] 81 mg tablet,delayed release (DR/EC) 81 mg PO DAILY pantoprazole 40 mg tablet,delayed release (DR/EC) 40 mg PO DAILY gabapentin 100 mg capsule 100 mg PO BID (DME) FreeStyle Regina 2 [place] Misc See Rx Instructions .Route Qty: 1 0RF Rx Instructions: As directed atorvastatin 40 mg tablet 40 mg PO DAILY Levemir FlexTouch U100 Insulin 100 unit/mL (3 mL) insulin pen 90 unit SUBCUT BID clopidogrel 75 mg tablet 75 mg PO DAILY 90 Days Qty: 90 3RF metoprolol tartrate 50 mg tablet 50 mg PO BID Qty: 180 3RF primidone 50 mg tablet 50 mg PO DAILY Qty: 30 3RF Rx Instructions: Take one daily with supper. (DME) FreeStyle Regina 2 Sensor Kit See Rx Instructions .ROUTE .COMPLEX Qty: 6 0RF Dose Instruction: USE DIRECTED Rx Instructions: USE DIRECTED carbidopa-levodopa 25-100 mg tablet See Rx Instructions .ROUTE .COMPLEX Qty: 270 1RF Dose Instruction: TAKE 1 TABLET BY MOUTH IN THE MORNING AND 1 TAB AT NOON AND 1 TAB AT 4 IN THE EVENING Rx Instructions: TAKE 1 TABLET BY MOUTH IN THE MORNING AND 1 TAB AT NOON AND 1 TAB AT 4 IN THE EVENING Victoza 2-Kg 0.6 mg/0.1 mL (18 mg/3 mL) Pen Injector 1.8 mg SUBCUT DAILY naproxen sodium [Aleve] 220 mg tablet 220 mg PO Q12H PRN (Reason: Pain) polyethylene glycol 3350 [Miralax] 17 gram powder in packet 17 g PO DAILY PRN (Reason: constipation) Qty: 14 0RF hyoscyamine sulfate 0.125 mg tablet 0.125 mg PO DAILY Lasix 20 mg tablet 20 mg PO BID Qty: 60 0RF cholecalciferol (vitamin D3) [Vitamin D3] 25 mcg (1,000 unit) Capsule 25 mcg PO DAILY Fish Oil 120-180 mg Capsule 1 cap PO DAILY cinnamon bark [Cinnamon] 500 mg Capsule 500 mg PO EVERY OTHER DAY Jardiance 25 mg tablet 25 mg PO DAILY tamsulosin 0.4 mg Capsule 0.4 mg PO DAILY Qty: 90 1RF finasteride 5 mg Tablet 5 mg PO DAILY Qty: 90 3RF insulin lispro 100 unit/mL insulin pen SUBCUT Discharge Orders: Discharge ED (Routine); Ordered 06/16/23 Ordered By: Benito Evans Referrals: Roxana James FNP [Primary Care Provider] - Patient Instructions: Opioid Safety, Pain Management Activity Restrictions/Additional Instructions: Thank you for choosing [facility] for your healthcare needs today. Please realize this is an emergency room and that we are providing you with a medical screening exam and this may not be complete and all inclusive of all the testing and or work up that you may need to determine your ailment or severity of your illness. It is very important that you follow up as instructed or that you return to the Emergency Department should you have concerns or if your condition changes or worsens in any way. You are seen today for chest discomfort your EKG and troponins were normal. Recommend you increase your steroid mononitrate to 60 mg daily case management make arrangements for you to have an outpatient Lexiscan sestamibi stress test. Coding Level of Care Code ED Inclusion Special Education Teacher for Hugo Garcia
--- NOTE | 2023-06-16 15:51 | PC.NURSE ---
Did not give patient 324 mg of aspirin because patient states that he was given aspirin by EMS. EMS did not mention that but doctor said that was ok and that we could cancel the aspirin.
[2023-06-16 16:01] LABS: Alanine Aminotransferase 8 U/L (0-41); Albumin Level 3.9 g/dL (3.5-5.2); Alkaline Phosphatase 121 U/L (40-130); Anion Gap 20.5 (5-19); Aspartate Amino Transferase 36 U/L (0-40); Blood Urea Nitrogen 31 mg/dL (8-23); Calcium 8.4 mg/dL (8.5-10.5); Carbon Dioxide 21 mmol/L (22-29); Chloride 95 mmol/L (98-107); Globulin 2.8 g/dL (1.3-4.6); Glomerular Filtration Rate 43.3 mL/min (90-130); Glucose 500 mg/dL (65-115); Osmolality Calculated 303 mOsm/kg (285-295); Potassium 4.5 mmol/L (3.5-5.1); Sodium 132 mmol/L (136-145); Total Bilirubin 0.6 mg/dL (0.15-1.2); Total Protein 6.7 g/dL (6.6-8.7)
[2023-06-16 16:03] LABS: Troponin(5th) Baseline 25 ng/L (0-15)
[2023-06-16 16:06] LABS: Creatinine Clr Calc Pharmacy 50.3806
--- NOTE | 2023-06-16 16:28 | PC.PHAR ---
Addendum entered by Radha Mansfield 06/16/23 17:04: CALLED AGAIN FOR A RE-FAX OF MED LIST 5:02PM Original Note: [phone] FOR [facility]ICATION SET UP. THEY WILL FAX MED LIST IF YOU CALL.
[2023-06-16 16:53] LABS: Troponin 5 2HR 23.43 ng/L (0-15)
[2023-06-16 16:55] LABS: Troponin 5 2HR Delta -1.57 ABS# (0-10)
== END 2023-06-16 17:47 | disposition home or self-care (01) ==
PROVIDERS: Emergency Provider Family Medicine; PCP Nurse Practitioner Family
DX: R07.89 Other chest pain (principal); I25.10 Atherosclerotic heart disease of native coronary artery without angina pectoris; E11.22 Type 2 diabetes mellitus with diabetic chronic kidney disease; I12.9 Hypertensive chronic kidney disease with stage 1 through stage 4 chronic kidney disease, or unspecified chronic kidney disease; N18.9 Chronic kidney disease, unspecified; E11.42 Type 2 diabetes mellitus with diabetic polyneuropathy; G20.A1 Parkinson's disease without dyskinesia, without mention of fluctuations; E78.5 Hyperlipidemia, unspecified; I25.2 Old myocardial infarction; Z79.82 Long term (current) use of aspirin; Z79.02 Long term (current) use of antithrombotics/antiplatelets; Z79.4 Long term (current) use of insulin
CPT/HCPCS: 36415; 71045; 80053; 84484; 85025; 93005; 99285

== ENCOUNTER 2023-07-06 08:48 | Outpatient (CLI) | payer MEDICARE, MEDICAID, SELFPAY ==
--- NOTE | 2023-07-06 | ECG_ITS ---
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 Interpretive Statements NAME OF STUDY: LEXISCAN SESTAMIBI STRESS TEST INDICATION: [Chest Pain, ] Procedure: At the baseline, the blood pressure was 174/96 mmHg with a heart rate of 92 bpm. The electrocardiogram showed normal sinus rhythm, normal axis with normal ST and T's frequent PVCs. The Lexiscan was infused over a period of 20 seconds. A total of 0.4 mg of Lexiscan was infused. The stress phase was continued for a total of 5 minutes. Heart rate was at the end of stress phase was 92 bpm and a blood pressure of 167/91 mmHg. The EKG at the peak infusion revealed normal sinus rhythm with no significant ST-T wave changes. PVCs seen. Sestamibi was injected 20 seconds after the Lexiscan infusion. Blood pressure at the end of recovery phase was 162/91 mmHg with a heart rate of 92 bpm. Conclusion: 1. Normal EKG response to Lexiscan infusion 2. No Lexiscan induced chest pain or cardiac arrhythmia. 3. Normal blood pressure and heart rate response. 4. Sestamibi/sestamibi perfusion scan pending; see separate report. Electronically Signed On 07-13-2023 12:13:15 CDT by Harvey Martins M.D. [id number]
[2023-07-06 09:08] VITALS: BMI 31.7
--- NOTE | 2023-07-06 09:10 | NMCV_ITS ---
NM mee perf SPECT r/s* [id number] Yaya Astudillo Age: 67 Gender: M : 1955 Exam Date: 07/06/2023 09:47 Ordering Phys: Roxana JamesP RAPID EXTRACTOR OPERATOR Technologist: ALICJA Torres Exam Location: [facility] Indications: CHEST PAIN STRESS TEST [facility] IMAGE PROTOCOL Rest/Stress 1 Lexiscan Day Radiopharmaceutical Dose (mCi) Administration Site Administered by Rest: Tc-99m 10.9 IV Magnolia Armijo, ALICJA Sestamibi Stress:Tc-99m 32.5 IV Magnolia Armijo, DROP PIT WORKER Sestamibi Rest: 06-Jul-2023 60 Discovery 630 Stress: 06-Jul-2023 30 Discovery 630 0.4mg Lexiscan. Supine position only as patient was unable to lay prone. SPECT RESULTS Technical Quality: Excellent Raw Data Analysis: Normal Image Corrections: No attenuation or motion correction applied Summed Stress Score: 2 Summed Rest Score: 3 Summed Difference Score: 0 PERFUSION FINDINGS There is medium sized area of fixed perfusion defect noted in anteroseptal and septal paniagua. This is consistent with medium sized area of prior infarct in LAD territory. FUNCTIONAL RESULTS (calculated via Gated SPECT) Stress Image LV EF (%): 41 Stress EDV (mL):108 TID: 1.06 Stress ESV (mL):64 FUNCTIONAL FINDINGS: LV systolic function is mildly reduced with EF of 41%. IMPRESSIONS 1. Medium sized area of prior infarct seen in LAD territory. No evidence of ischemia. 2. LV systolic function is mildly decreased with EF of 41% Harvey Martins MD (Electronically Signed) Final Date: 07 July 2023 12:12 S
[2023-07-06] MEDS: regadenoson 0.4 Mg/5 ml Syringe 0.400000000000000022 MG IVP (10:27)
[2023-07-06 10:47] VITALS: BP 167/91; PULSE 90
== END 2023-07-06 08:49 | disposition home or self-care (01) ==
LOC: CDL 08:49
PROVIDERS: PCP Nurse Practitioner Family; Visit Provider Family Medicine
DX: R07.9 Chest pain, unspecified (principal)
CPT/HCPCS: 36415; 78452; 93017; 96374; A9500; J2785

== ENCOUNTER → 2023-07-14 09:55 | Outpatient (BNVA) | payer MEDICARE, MEDICAID, SELFPAY | PROVIDERS: PCP Nurse Practitioner Family; Referring Provider Nurse Practitioner Family; Visit Provider Student in an Organized Health Care Education/Training Program | DX: M25.512 Pain in left shoulder (principal); M75.42 Impingement syndrome of left shoulder | CPT/HCPCS: 20610; 73030; 99214; J3301 ==

== ENCOUNTER 2023-07-27 10:54 | Emergency (ER) | payer MEDICARE, MEDICAID, SELFPAY ==
[2023-07-27 10:58] VITALS: BP 166/85; PULSE 53; RESP 18; TEMP 36.8; O2SAT 93; BMI 34.0
--- NOTE | 2023-07-27 10:58 | XR_ITS ---
WS: [id number] Exam: XR chest 1V portable [id number] Date/Time of Exam: 07/27/2023 10:58 AM Reason For Exam: weakness Comparison 06/16/2023. Findings: The lungs are clear and fully expanded. Costophrenic angles are sharp. No infiltrates. Bronchovascula r relief appears normal. Cardiac silhouette is unremarkable. Bony elements are intact. IMPRESSION: Unremarkable chest radiograph.
--- NOTE | 2023-07-27 11:04 | ED_ITS ---
HPI - Dizziness 2 General: Chief Complaint: Dizziness Stated Complaint: Dizzy Time Seen by Provider: 07/27/23 10:55 Source: patient and EMS Mode of arrival: EMS Limitations: no limitations History of Present Illness: HPI Narrative: 67-year-old male who states that he woke up at 4:00 this morning with some dizziness. Try to get him explain it further he is not a vague historian he states that he just feels dizzy and lightheaded is worse with movement. He went to bed last night 9 PM its when he was last feeling normal he denies any focal weakness he has had no slurred speech he denies headache he states he feels fine at rest currently. Denies any chest pain Associated symptoms: Denies chest pain, chills, headache(s), nausea or vomiting Review of Systems 2 Const: Denies: fever(s), chills, body aches or change in appetite Eyes: Denies: blurry vision ENMT: Denies: throat pain or dental pain Card: Denies: chest pain Resp: Denies: dyspnea GI: Denies: abdominal pain, nausea, vomiting or diarrhea Musc: Denies: neck pain or back pain Skin/Breast: Denies: rash Neuro: Reports: dizziness; Denies: headache(s) PFSH ED 2 PFSH: Medical History Acute on chronic renal failure Urinary tract infection Urinary retention Acute renal failure Ophthalmoplegia Parkinson disease Diabetic neuropathy associated with type 2 diabetes mellitus Essential tremor Cough Exposure to COVID-19 virus Chronic diarrhea Diabetic foot ulcer CÉSAR (obstructive sleep apnea) CKD (chronic kidney disease) (~10/12/20) Hyperlipidemia HTN (hypertension) Obesity Myocardial infarction ASHD (arteriosclerotic heart disease) Diabetes Surgical History S/P eye surgery Status post colonoscopy (12/24/20) sigmoid polyp Status post amputation of toe S/P angioplasty with stent Family History Mother CAD (coronary artery disease) Diabetes Social History Smoking and tobacco/nicotine status: former use of tobacco/nicotine Alcohol intake: former Substance/Drug Use: never Lives independently: Yes Household members: other Details: DOG Marital status: service: No Current occupational status: disabled 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 Physical Exam 2 Const: COMMON NORMALS: no acute distress, patient oriented x3 and healthy appearing HENMT: COMMON NORMALS: normocephalic and atraumatic HEAD & SCALP: n ormocephalic and atraumatic Eye: COMMON NORMALS: Equal, round and reactive pupils present and EOMs intact bilaterally PUPIL: Yes Equal, round and reactive pupils present Neck/C-Spine: COMMON NORMALS: full ROM and supple Chest: COMMONS NORMALS: normal inspection of the chest and normal palpation of entire chest wall Resp: COMMON NORMALS: normal respiratory effort, No retractions, No use of accessory muscles and clear to auscultation bilaterally AUSCULTATION: clear to auscultation bilaterally Cardio: COMMON NORMALS: regular rate, regular rhythm and No murmurs present (Cardio) RATE: regular rate RHYTHM: regular rhythm GI: COMMON NORMALS: Normal to inspection, nondistended, normoactive bowel sounds present, Soft to palpation, non-tender and no masses PALPATION: Yes Soft to palpation Extremity: COMMON NORMALS: normal to inspection and full ROM Neuro: COMMON NORMALS: patient oriented x3, moves all extremities and no focal motor deficits Psych: COMMON NORMALS: mental status grossly normal, Normal thought process present and cooperative THOUGHT PROCESS: Normal thought process present Skin: COMMON NORMALS: no rashes or lesions noted and no wounds GENERAL SKIN EXAM: no rashes or lesions noted Course 2 Vital Signs: Vital signs: Vital Signs Temperature 98.2 F 07/27/23 10:58 Pulse Rate 68 07/27/23 13:30 Respiratory Rate 15 07/27/23 12:01 Blood Pressure 143/71 07/27/23 13:30 Pulse Oximetry 97 07/27/23 13:30 Oxygen Delivery Me thod Room Air 07/27/23 12:01 MDM - Dizziness Medical Decision Making Patient presents here with some lightheadedness he has no signs of posterior stroke he is ambulatory here he does feel improved after we gotten his blood sugar down he states he has been noncompliant on his meds he states he has not been taking his insulin and informed him it is very important that he does take his insulin he is not in DKA he is stable for discharge he is follow-up with PCP return if worsening he understands agrees to plan Medical Records I reviewed the patient's medical records. Lab Data I reviewed the patient's lab results. 07/27/23 11:00 07/27/23 11:00 Laboratory Results WBC 8.78 10^3/uL (3.29-11.43) 07/27/23 11:00 RBC 4.56 10^6/uL (3.85-5.65) 07/27/23 11:00 Hgb 13.20 g/dL (11.27-16.99) 07/27/23 11:00 Hct 39.3 % (37-53) 07/27/23 11:00 MCV 86.2 fl (82-101) 07/27/23 11:00 MCH 28.9 pg (27-33) 07/27/23 11:00 MCHC 33.6 g/dL (30-55) 07/27/23 11:00 RDW 12.8 % (12.1-15.1) 07/27/23 11:00 Plt Count 177 10^3/cmm (157-399) 07/27/23 11:00 MPV 13.0 fL (7.4-10.4) H 07/27/23 11:00 Neut % (Auto) 77.6 % 07/27/23 11:00 Lymph % (Auto) 13.3 % 07/27/23 11:00 [place] % (Auto) 7.6 % 07/27/23 11:00 Eos % (Auto) 0.6 % 07/27/23 11:00 Baso % (Auto) 0.7 % 07/27/23 11:00 Neut # (Auto) 6.81 10^3/uL (1.8-7.7) 07/27/23 11:00 Lymph # (Auto) 1.2 10^3/uL (0.8-4.8) 07/27/23 11:00 [place] # (Auto) 0.7 10^3/uL (0.2-0.9) 07/27/23 11:00 Eos # (Auto) 0.1 10^3/uL (0.0-0.8) 07/27/23 11:00 Baso # (Auto) 0.1 10^3/uL (0.0-0.1) 07/27/23 11:00 Nucleated RBC % (auto) 0 % 07/27/23 11:00 Nucleated RBCs # 0.0 /100WBC 07/27/23 11:00 PT 12.90 SECONDS (12.1-14.9) 07/27/23 11:00 INR 0.94 (0.8-1.2) 07/27/23 11:00 Sodium 125 mmol/L (136-145) L 07/27/23 11:00 Potassium 4.7 mmol/L (3.5-5.1) 07/27/23 11:00 Chloride 88 mmol/L (98-107) L 07/27/23 11:00 Carbon Dioxide 24 mmol/L (22-29) 07/27/23 11:00 Anion Gap 17.7 (5-19) 07/27/23 11:00 BUN 47 mg/dL (8-23) H 07/27/23 11:00 Creatinine 1.5 mg/dL (0.7-1.2) H 07/27/23 11:00 GFR Calculation 46.7 mL/min (90-130) L 07/27/23 11:00 Glucose 749 mg/dL (65-115) H* 07/27/23 11:00 POC Glucose 486 mg/dL (70-110) H 07/27/23 14:00 Calculated Osmolality 308 mOsm/kg (285-295) H 07/27/23 11:00 Calcium 9.2 mg/dL (8.5-10.5) 07/27/23 11:00 Total Bilirubin 0.7 mg/dL (0.15-1.2) 07/27/23 11:00 AST 10 U/L (0-40) 07/27/23 11:00 ALT < 5 U/L (0-41) 07/27/23 11:00 Alkaline Phosphatase 172 U/L (40-130) H 07/27/23 11:00 Total Protein 6.4 g/dL (6.6-8.7) L 07/27/23 11:00 Albumin 3.9 g/dL (3.5-5.2) 07/27/23 11:00 Globulin 2.5 g/dL (1.3-4.6) 07/27/23 11:00 All radiology interpretation(s) finalized by discharge EKG Data EKG 1: I personally reviewed and interpreted this EKG as follows: EKG interpretation date: 07/27/23 EKG interpretation time: 11:17 Interpretation: nsr hr [address] or t wave abnormalities qrs 88 qtc 430 Discharge Plan Discharge Patient Disposition: Home Clinical Impression: Hyperglycemia, Light-headed Condition: Stable Prescriptions: No Action aspirin [Adult Low Dose Aspirin] 81 mg tablet,delayed release (DR/EC) 81 mg PO QAM pantoprazole 40 mg tablet,delayed release (DR/EC) 40 mg PO DAILY (DME) FreeStyle Regina 2 [place] Misc See Rx Instructions .Route Qty: 1 0RF Rx Instructions: As directed atorvastatin 40 mg tablet 40 mg PO QPM Levemir FlexTouch U100 Insulin 100 unit/mL (3 mL) insulin pen 90 unit SUBCUT BID clopidogrel 75 mg tablet 75 mg PO DAILY 90 Days Qty: 90 3RF metoprolol tartrate 50 mg tablet 50 mg PO BID Qty: 180 3RF (DME) FreeStyle Regina 2 Sensor Kit See Rx Instructions .ROUTE .COMPLEX Qty: 6 0RF Dose Instruction: USE DIRECTED Rx Instructions: USE DIRECTED carbidopa-levodopa 25-100 mg tablet See Rx Instructions .ROUTE .COMPLEX Qty: 270 1RF Dose Instruction: TAKE 1 TABLET BY MOUTH IN THE MORNING AND 1 TAB AT NOON AND 1 TAB AT 4 IN THE EVENING Rx Instructions: TAKE 2 TABLETS BY MOUTH IN THE MORNING AND 1 IN THE EVENING Victoza 2-Kg 0.6 mg/0.1 mL (18 mg/3 mL) Pen Injector 1.8 mg SUBCUT DAILY naproxen sodium [Aleve] 220 mg tablet 220 mg PO Q12H PRN (Reason: Pain) polyethylene glycol 3350 [Miralax] 17 gram powder in packet 17 g PO DAILY PRN (Reason: constipation) Qty: 14 0RF furosemide [Lasix] 20 mg tablet 20 mg PO BID Qty: 60 0RF Klor-Con M20 20 mEq tablet,ER particles/crystals 20 meq PO DAILY nitroglycerin 0.4 mg tablet, sublingual See Rx Instructions .ROUTE .COMPLEX Rx Instructions: DISSOLVE ONE TABLET UNDER THE TONGUE EVERY 5 MINUTES NEEDED FOR CHEST PAIN. DO NOT EXCEED A TOTAL OF 3 DOSES IN 15 MINUTES - REPORT TO THE EMERGENCY ROOM IF 3 DOSES ARE NEEDED TO CONTROL PAIN cholecalciferol (vitamin D3) [Vitamin D3] 25 mcg (1,000 unit) Capsule 25 mcg PO DAILY Fish Oil 120-180 mg Capsule 1 cap PO DAILY cinnamon bark [Cinnamon] 500 mg Capsule 500 mg PO EVERY OTHER DAY tamsulosin 0.4 mg Capsule 0.4 mg PO DAILY Qty: 90 1RF finasteride 5 mg Tablet 5 mg PO DAILY Qty: 90 3RF insulin lispro 100 unit/mL insulin pen See Rx Instructions .ROUTE .COMPLEX Rx Instructions: TAKE 15 UNITS DAILY. IF BG OVER 200, TAKE 25 UNITS. isosorbide mononitrate 60 mg tablet extended release 24 hr 60 mg PO DAILY Qty: 30 0RF Discharge Orders: Discharge ED (Routine); Ordered 07/27/23 Ordered By: Abhishek Fowelr Referrals: Roxana James FNP [Primary Care Provider] - 1-3 days Discharge Diet: Advance as tolerated Discharge Activity: Resume usual activity Patient Instructions: Lightheadedness (ED), Diabetic Hyperglycemia (ED) Coding Level of Care Code ED Administrative Services Coordinator for Hugo Garcia
--- NOTE | 2023-07-27 11:04 | CT_ITS ---
WS: [id number] CT HEAD TECHNIQUE: Noncontrast CT of the head obtained from the skullbase to the vertex. CLINICAL INFORMATION: dizzy COMPARISON: None. DLP: 1125.[address] scans at [facility] use at least one of these dose optimization techniques: automated e xposure control; mA and/or kV adjustment per patient size (includes targeted exams where dose is matc hed to clinical indication); or iterative reconstruction. FINDINGS: No evidence of intracranial hemorrhage or mass effect. Ventricular system and basal cisterns are echevarria nt. Moderate small vessel changes with moderate parenchymal volume loss. No extra-axial fluid collect ions. No evidence of mass or mass effect. Intracranial vascular calcification. Paranasal sinuses and mastoid air cells are well aerated. .Normal visualized soft tissues. Increased density RIGHT globe likely due to silicone injection for retinal detachment. IMPRESSION: 1. No evidence of intracranial hemorrhage or mass effect. 2. Moderate small vessel changes with moderate parenchymal volume loss. 3. Increased density in the RIGHT globe likely due to silicone injection for RIGHT retinal detachme nt. Recommend correlation with clinical history. 4. No other acute findings. Notified Abhishek Fowler MD at 07/27/2023 12:02 PM.
[2023-07-27] MEDS: meclizine 25 mg tablet 50 MG PO (11:09)
[2023-07-27 11:10] LABS: Basophils # 0.1 10^3/uL (0.0-0.1); Basophils % 0.7 %; Eosinophils # 0.1 10^3/uL (0.0-0.8); Eosinophils % 0.6 %; Hematocrit 39.3 % (37-53); Lymphocytes # 1.2 10^3/uL (0.8-4.8); Lymphocytes % 13.3 %; Mean Corpuscular HGB Conc 33.6 g/dL (30-55); Mean Corpuscular Hemoglobin 28.9 pg (27-33); Mean Corpuscular Volume 86.2 fl (82-101); Monocytes # 0.7 10^3/uL (0.2-0.9); Monocytes % 7.6 %; Neutrophils # 6.81 10^3/uL (1.8-7.7); Neutrophils % 77.6 %; Nucleated Red Blood Cells % 0 %; Platelet Count 177 10^3/cmm (157-399); Red Blood Count 4.56 10^6/uL (3.85-5.65); Red Cell Distribution Width 12.8 % (12.1-15.1); White Blood Count 8.78 10^3/uL (3.29-11.43)
--- NOTE | 2023-07-27 11:17 | ECG_ITS ---
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 Measurements Intervals [place] Rate: 61 P: 31 ME: 191 QRS: -32 QRSD: 88 T: 55 QT: 427 QTc: 432 Interpretive Statements SINUS RHYTHM WITH OCCASIONAL VENTRICULAR PREMATURE COMPLEXES LEFT AXIS DEVIATION [QRS AXIS < -30] Compared to ECG 06/16/2023 15:18:32 Ventricular premature complex(es) now present First degree AV block no longer present Myocardial infarct finding no longer present Electronically Signed On 07-27-2023 19:25:50 CDT by Lizeth Veliz M.D. [email or web address], [id number]
[2023-07-27 11:23] LABS: INR 0.94 (0.8-1.2)
[2023-07-27 11:29] LABS: Alanine Aminotransferase < 5 U/L (0-41); Albumin Level 3.9 g/dL (3.5-5.2); Alkaline Phosphatase 172 U/L (40-130); Anion Gap 17.7 (5-19); Aspartate Amino Transferase 10 U/L (0-40); Blood Urea Nitrogen 47 mg/dL (8-23); Calcium 9.2 mg/dL (8.5-10.5); Carbon Dioxide 24 mmol/L (22-29); Chloride 88 mmol/L (98-107); Globulin 2.5 g/dL (1.3-4.6); Glomerular Filtration Rate 46.7 mL/min (90-130); Osmolality Calculated 308 mOsm/kg (285-295); Potassium 4.7 mmol/L (3.5-5.1); Sodium 125 mmol/L (136-145); Total Bilirubin 0.7 mg/dL (0.15-1.2); Total Protein 6.4 g/dL (6.6-8.7)
[2023-07-27 11:31] LABS: Glucose 749 mg/dL (65-115)
[2023-07-27] MEDS: insulin regular-human 100 units/1 mL 15 UNIT IVP (11:56)
[2023-07-27] MEDS: sodium chloride 0.9% 1,000 ML 999 ML IV (12:00)
[2023-07-27 12:01] VITALS: BP 169/104; PULSE 61; RESP 15; O2SAT 97
[2023-07-27 12:29] LABS: Glucose Point of Care 592 mg/dL (70-110)
[2023-07-27 13:21] LABS: Glucose Point of Care 488 mg/dL (70-110)
[2023-07-27] MEDS: insulin regular-human 100 units/1 mL 5 UNIT IVP (13:26)
[2023-07-27 13:30] VITALS: BP 143/71; PULSE 68; O2SAT 97
[2023-07-27 14:03] LABS: Glucose Point of Care 486 mg/dL (70-110)
== END 2023-07-27 14:36 | disposition home or self-care (01) ==
PROVIDERS: Emergency Provider Emergency Medicine; PCP Nurse Practitioner Family
DX: E11.65 Type 2 diabetes mellitus with hyperglycemia (principal); G20.A1 Parkinson's disease without dyskinesia, without mention of fluctuations; E11.22 Type 2 diabetes mellitus with diabetic chronic kidney disease; I12.9 Hypertensive chronic kidney disease with stage 1 through stage 4 chronic kidney disease, or unspecified chronic kidney disease; N18.9 Chronic kidney disease, unspecified; E78.5 Hyperlipidemia, unspecified; I25.2 Old myocardial infarction; Z87.891 Personal history of nicotine dependence; Z79.02 Long term (current) use of antithrombotics/antiplatelets; Z79.82 Long term (current) use of aspirin; Z79.4 Long term (current) use of insulin
CPT/HCPCS: 36416; 70450; 71045; 80053; 82962; 85025; 85610; 93005; 96374; 99285; J1815; J7030; J8597

== ENCOUNTER → 2023-10-20 09:24 | Outpatient (BNVA) | payer OTHER, MEDICAID, SELFPAY | PROVIDERS: PCP Nurse Practitioner Family; Visit Provider Student in an Organized Health Care Education/Training Program | DX: G56.03 Carpal tunnel syndrome, bilateral upper limbs; M75.42 Impingement syndrome of left shoulder | CPT/HCPCS: 73080; 99213 ==

== ENCOUNTER 2023-11-15 14:57 | Observation (INO) | payer MEDICARE, MEDICAID, SELFPAY ==
[2023-11-15] VITALS (13 sets, daily range): BP systolic 93–146; BP diastolic 52–92; PULSE 73–89; RESP 14–23; TEMP 36.7–36.9; O2SAT 92–99; BMI 30.5
--- NOTE | 2023-11-15 15:05 | ECG_ITS ---
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 Measurements Intervals [place] Rate: 88 P: 50 [place]: 164 QRS: -46 QRSD: 78 T: 83 QT: 366 QTc: 444 Interpretive Statements SINUS RHYTHM LEFT AXIS DEVIATION [QRS AXIS < -30] NONSPECIFIC T-WAVE ABNORMALITY Compared to ECG 07/27/2023 11:17:50 T-wave abnormality now present Ventricular premature complex(es) no longer present Electronically Signed On 11-16-2023 14:08:58 CDT by Neil Galdamez M.D. [id number]
--- NOTE | 2023-11-15 16:01 | W.ED.DIZZY ---
HPI - Dizziness General: Chief Complaint: Dizziness Stated Complaint: weakness Time Seen by Provider: 11/15/23 15:16 History of Present Illness: HPI Narrative: 68-year-old male presents to the emergency room complaining of lightheadedness and dizziness has been going on for several weeks he is also very difficult time with his vision has been seeing ophthalmology and they have been working with him on it he has an upcoming appointment they have done some treatments but his vision is still very poor he can recognize shapes and some colors but is not able to identify specific objects he has even has difficulty with counting fingers and side of 14 inches. Patient has had multiple syncopal episodes and falls in the last couple of weeks. Reports she may have lost consciousness at times. He has been seen for this in the past and has had a stress test recently reviewed on the chart. His primary caregiver at home right now is a grandson who is 5 years old Associated symptoms: Reports syncope; Denies chest pain, chills or headache(s) Review of Systems Const: Denies: fever(s) or chills Eyes: Reports: change in vision and blurry vision Card: Reports: lightheadedness and syncope; Denies: chest pain Resp: Denies: dyspnea GI: Denies: abdominal pain : Denies: dysuria, urinary frequency or urinary urgency Musc: Denies: neck pain or back pain Skin/Breast: Denies: rash Neuro: Reports: dizziness; Denies: headache(s) [facility] ED PFSH: Medical History Acute on chronic renal failure Urinary tract infection Urinary retention Acute renal failure Ophthalmoplegia Parkinson disease Diabetic neuropathy associated with type 2 diabetes mellitus Essential tremor Cough Exposure to COVID-19 virus Chronic diarrhea Diabetic foot ulcer CÉSAR (obstructive sleep apnea) CKD (chronic kidney disease) (~10/12/20) Hyperlipidemia HTN (hypertension) Obesity Myocardial infarction ASHD (arteriosclerotic heart disease) Diabetes Surgical History S/P eye surgery Status post colonoscopy (12/24/20) sigmoid polyp Status post amputation of toe S/P angioplasty with stent Family History Mother CAD (coronary artery disease) Diabetes Social History Smoking and tobacco/nicotine status: former use of tobacco/nicotine Alcohol intake: former Substance/Drug Use: never Lives independently: Yes Household members: other Details: DOG Marital status: service: No Current occupational status: disabled 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 Resp: COMMON NORMALS: normal respiratory effort, No retractions, No use of accessory muscles and clear to auscultation bilaterally AUSCULTATION: clear to auscultation bilaterally Cardio: COMMON NORMALS: regular rate, regular rhythm and No murmurs present (Cardio) RATE: regular rate RHYTHM: regular rhythm GI: COMMON NORMALS: Soft to palpation and No hepatosplenomegaly present AUSCULTATION: Yes normoactive bowel sounds PALPATION: Yes Soft to palpation, No Tenderness to palpation present (GI), No Guarding due to palpation present (GI) and Yes No hepatosplenomegaly present Extremity: COMMON NORMALS: normal to inspection, capillary refill normal, no clubbing, cyanosis or edema, no calf tenderness and no pedal edema Neuro: SENSORIUM/ORIENTATION: Yes oriented to person, Yes oriented to place and Yes oriented to time Skin: COMMON NORMALS: no rashes or lesions noted GENERAL SKIN EXAM: no rashes or lesions noted Course Vital Signs: Vital signs: Vital Signs Temperature 98.0 F 11/17/23 04:00 Pulse Rate 80 11/17/23 06:00 Respiratory Rate 10 L 11/17/23 04:00 Blood Pressure 175/98 11/17/23 04:00 Pulse Oximetry 97 11/17/23 04:00 Oxygen Delivery Me thod Room Air 11/17/23 04:00 Oxygen Flow Rate 98 11/16/23 12:00 MDM - Dizziness Medical Decision Making Labs and imaging reviewed. EKG did not show acute changes troponins trending negative. Patient unable to care for self at this time. He is multiple falls. Patient severely hyperglycemic with a blood glucose of 615. She received 1 L bolus of fluids and 14 units of regular insulin and blood sugar improved to 347. Additionally has a acute kidney injury.Discussed with hospitalist will admit Lab Data 11/17/23 04:03 11/17/23 04:[address] 11/15/23 16:22 IMPRESSION: No intracranial posttraumatic changes. Hip/Pelvis X-Ray 11/15/23 16:22 IMPRESSION: No acute fracture or dislocation. Laboratory Results WBC 4.59 10^3/uL (3.29-11.43) 11/15/23 16:07 RBC 4.15 10^6/uL (3.85-5.65) 11/15/23 16:07 Hgb 12.10 g/dL (11.27-16.99) 11/15/23 16:07 Hct 35.8 % (37-53) L 11/15/23 16:07 MCV 86.3 fl (82-101) 11/15/23 16:07 MCH 29.2 pg (27-33) 11/15/23 16:07 MCHC 33.8 g/dL (30-55) 11/15/23 16:07 RDW 13.8 % (12.1-15.1) 11/15/23 16:07 Plt Count 191 10^3/cmm (157-399) 11/15/23 16:07 MPV 11.8 fL (7.4-10.4) H 11/15/23 16:07 Neut % (Auto) 61.5 % 11/15/23 16:07 Lymph % (Auto) 20.9 % 11/15/23 16:07 [place] % (Auto) 14.4 % 11/15/23 16:07 Eos % (Auto) 1.7 % 11/15/23 16:07 Baso % (Auto) 1.1 % 11/15/23 16:07 Neut # (Auto) 2.82 10^3/uL (1.8-7.7) 11/15/23 16:07 Lymph # (Auto) 1.0 10^3/uL (0.8-4.8) 11/15/23 16:07 [place] # (Auto) 0.7 10^3/uL (0.2-0.9) 11/15/23 16:07 Eos # (Auto) 0.1 10^3/uL (0.0-0.8) 11/15/23 16:07 Baso # (Auto) 0.1 10^3/uL (0.0-0.1) 11/15/23 16:07 Nucleated RBC % (auto) 0 % 11/15/23 16:07 Nucleated RBCs # 0.0 /100WBC 11/15/23 16:07 Specimen Type Arterial 11/15/23 16:58 Sample Site Radial, right 11/15/23 16:58 ABG pH 7.40 (7.35-7.45) 11/15/23 16:58 ABG pCO2 42.4 mmHg (35-45) 11/15/23 16:58 ABG pO2 83.9 mmHg (80.0-100.0) 11/15/23 16:58 ABG HCO3 26.1 mmol/L (22-26) H 11/15/23 16:58 ABG O2 Saturation 97.2 11/15/23 16:58 ABG Base Excess 1.0 mmol/L (-2.0-2.0) 11/15/23 16:58 Pete Test Pos 11/15/23 16:58 A-a O2 Gradient 1.7 mmHg (5-10) L 11/15/23 16:58 Hematocrit 35.7 % (42-52) L 11/15/23 16:58 Hgb O2 Saturation 94.7 % (95-100) L 11/15/23 16:58 Carboxyhemoglobin 1.4 %THgb (0.4-20.1) 11/15/23 16:58 Methemoglobin 1.2 % (0.4-1.5) 11/15/23 16:58 Total Hemoglobin 11.7 g/dL (14-18) L 11/15/23 16:58 Sodium 132.0 mmol/L (131-143) 11/15/23 16:58 Potassium 3.4 mmol/L (3.5-5.0) L 11/15/23 16:58 Glucose 423.0 mg/dL (70-115) H 11/15/23 16:58 Ionized Calcium 1.2 mmol/L (1.1-1.4) 11/15/23 16:58 O2 Delivery Device Nc 11/15/23 16:58 O2 Liters/Min 1.0 % 11/15/23 16:58 Gas Plant Specialist ID [place] 11/15/23 16:58 Sodium 127 mmol/L (136-145) L 11/15/23 16:07 Potassium 4.0 mmol/L (3.5-5.1) 11/15/23 16:07 Chloride 89 mmol/L (98-107) L 11/15/23 16:07 Carbon Dioxide 23 mmol/L (22-29) 11/15/23 16:07 Anion Gap 19.0 (5-19) 11/15/23 16:07 BUN 37 mg/dL (8-23) H 11/15/23 16:07 Creatinine 2.0 mg/dL (0.7-1.2) H 11/15/23 16:07 GFR Calculation 33.4 mL/min (90-130) L 11/15/23 16:07 Glucose 615 mg/dL (65-115) H* 11/15/23 16:07 Estimat Average Glucose 378 11/15/23 16:07 Hemoglobin A1c 14.8 % (4.0-6.0) H 11/15/23 16:07 Calculated Osmolality 301 mOsm/kg (285-295) H 11/15/23 16:07 Lactic Acid 1.4 mmol/L (0.5-2.2) 11/15/23 16:07 Calcium 9.1 mg/dL (8.5-10.5) 11/15/23 16:07 Magnesium 2.3 mg/dL (1.7-2.3) 11/15/23 16:07 Total Bilirubin 0.5 mg/dL (0.15-1.2) 11/15/23 16:07 AST 13 U/L (0-40) 11/15/23 16:07 ALT < 5 U/L (0-41) 11/15/23 16:07 Alkaline Phosphatase 148 U/L (40-130) H 11/15/23 16:07 Creatine Kinase 36 U/L (39-308) L 11/15/23 16:07 Troponin T Baseline 48 ng/L (0-15) H 11/15/23 16:07 Total Protein 6.3 g/dL (6.6-8.7) L 11/15/23 16:07 Albumin 3.6 g/dL (3.5-5.2) 11/15/23 16:07 Globulin 2.7 g/dL (1.3-4.6) 11/15/23 16:07 Lipase 66 U/L (13-60) H 11/15/23 16:07 Procalcitonin 0.19 ng/mL (0-0.5) 11/15/23 16:07 TSH 2.00 uIU/mL (0.27-4.20) 11/15/23 16:07 Urine Color Yellow (Yellow) 11/15/23 01:37 Urine Appearance Clear (CLEAR) 11/15/23 01:37 Urine pH 5.0 (5-7) 11/15/23 01:37 Ur Specific [place] 1.016 (1.005-1.030) 11/15/23 01:37 Urine Protein 1+ (Negative) A 11/15/23 01:37 Urine Glucose (UA) 3+ (Normal) H 11/15/23 01:37 Urine Ketones Negative (Negative) 11/15/23 01:37 Urine Blood Negative (Negative) 11/15/23 01:37 Urine Nitrate Negative (Negative) 11/15/23 01:37 Urine Bilirubin Negative (Negative) 11/15/23 01:37 Urine Urobilinogen 0.2 mg/dL (Negative) 11/15/23 01:37 Ur Leukocyte Esterase Negative (Negative) 11/15/23 01:37 Urine RBC 0-2 /hpf (0-2) 11/15/23 01:37 Urine WBC 0-5 /hpf (0-5) 11/15/23 01:37 Ur Squamous Epith Cells 0-5 /hpf (0-5) 11/15/23 01:37 Amorphous Sediment Not Reportable 11/15/23 01:37 Urine Bacteria None seen /hpf (NONE) 11/15/23 01:37 Hyaline Casts 6.61 /lpf 11/15/23 01:37 Serum Ketones Negative (Negative) 11/15/23 16:07 All radiology interpretation(s) finalized by discharge EKG Data EKG 1: Interpretation: Normal sinus rhythm rate of 88 MI interval [address] changes EKG 2: Interpretation: Normal sinus rhythm left axis deviation no acute ST changes rate of 89 MI interval 189 QT 378 Discharge Plan Discharge Patient Disposition: Admitted As Inpatient Admit Provider: Ling Wei Clinical Impression: Hyperglycemia, Diabetic neuropathy associated with type 2 diabetes mellitus, JULIET (acute kidney injury) Condition: Stable Coding Level of Care Code ED Wire Straightening Machine Operator for Hugo Garcia
[2023-11-15] MEDS: ondansetron 2 mg/ML SDV 2 mL 4 MG IVP (16:08)
[2023-11-15] MEDS: sodium chloride 0.9% 1,000 ML 999 ML IV ×2 (16:09→17:12)
[2023-11-15 16:12] LABS: Basophils # 0.1 10^3/uL (0.0-0.1); Basophils % 1.1 %; Eosinophils # 0.1 10^3/uL (0.0-0.8); Eosinophils % 1.7 %; Hematocrit 35.8 % (37-53); Lymphocytes % 20.9 %; Mean Corpuscular HGB Conc 33.8 g/dL (30-55); Mean Corpuscular Hemoglobin 29.2 pg (27-33); Mean Corpuscular Volume 86.3 fl (82-101); Mean Platelet Volume 11.8 fL (7.4-10.4); Monocytes # 0.7 10^3/uL (0.2-0.9); Monocytes % 14.4 %; Neutrophils # 2.82 10^3/uL (1.8-7.7); Neutrophils % 61.5 %; Nucleated Red Blood Cells % 0 %; Platelet Count 191 10^3/cmm (157-399); Red Blood Count 4.15 10^6/uL (3.85-5.65); Red Cell Distribution Width 13.8 % (12.1-15.1); White Blood Count 4.59 10^3/uL (3.29-11.43)
--- NOTE | 2023-11-15 16:22 | CTR_ITS ---
PROCEDURE INFORMATION: Exam: CT Head Without Contrast Exam date and time: 11/15/2023 4:37 PM Age: 68 years old Clinical indication: Injury or trauma; Fall; Blunt trauma (contusions or hematomas) TECHNIQUE: Imaging protocol: Computed tomography of the head without contrast. Radiation optimization: All CT scans at this facility use at least one of these dose optimization techniques: automated exposure control; mA and/or kV adjustment per patient size (includes targeted exams where dose is matched to clinical indication); or iterative reconstruction. COMPARISON: CT head wo con* [id number] 07/27/2023 11:36 AM RADIATION DOSE METRICS: Total DLP (mGy-cm): 1150.14 FINDINGS: Brain: Periventricular white matter hypodensities with chronic ischemic small vessel disease. No recent infarct, intracranial bleed or mass effect. Cerebral ventricles: No ventriculomegaly. Paranasal sinuses: Visualized sinuses are unremarkable. No fluid levels. Mastoid air cells: Visualized mastoid air cells are well aerated. Orbital cavities: Post left cataract surgery. Stable increased density in the right eye globe. Bones: Unremarkable. No acute fracture. Soft tissues: Unremarkable. CT/CT head wo con* [id number] IMPRESSION: No intracranial posttraumatic changes.
--- NOTE | 2023-11-15 16:22 | XRR_ITS ---
PROCEDURE INFORMATION: Exam: XR Left Hip Exam date and time: 11/15/2023 4:39 PM Age: 68 years old Clinical indication: Injury or trauma; Fall; Blunt trauma (contusions or hematomas); Left; Hip TECHNIQUE: Imaging protocol: Radiologic exam of the left hip. Views: 2 or 3 views hip with pelvis when performed. COMPARISON: CT abdomen pelvis wo con [id number] 10/09/2022 7:08 PM FINDINGS: Bones/joints: Mild degenerative disease of the left hip joint. No acute fracture or dislocation. Cam morphology of the left femoral neck. Soft tissues: Unremarkable. Vasculature: Vascular calcifications. XR/XR hip LT 2-3V wo/w pel* [id number] IMPRESSION: No acute fracture or dislocation.
--- NOTE | 2023-11-15 16:22 | XRR_ITS ---
PROCEDURE INFORMATION: Exam: XR Right Hip Exam date and time: 11/15/2023 4:43 PM Age: 68 years old Clinical indication: Injury or trauma; Fall; Blunt trauma (contusions or hematomas); Right; Hip TECHNIQUE: Imaging protocol: Radiologic exam of the right hip. Views: 2 or 3 views hip with pelvis when performed. COMPARISON: CT abdomen pelvis wo con [id number] 10/09/2022 7:08 PM FINDINGS: Bones/joints: Right gluteus calcific tendinosis. No acute fracture or dislocation. Cam morphology of the right femoral neck. Soft tissues: Unremarkable. Vasculature: Vascular calcifications. XR/XR hip RT 2-3V wo/w pel* [id number] IMPRESSION: No acute fracture or dislocation.
[2023-11-15 16:30] LABS: Lactic Sepsis W/Reflex 1.4 mmol/L (0.5-2.2)
[2023-11-15 16:31] LABS: Alanine Aminotransferase < 5 U/L (0-41); Albumin Level 3.6 g/dL (3.5-5.2); Alkaline Phosphatase 148 U/L (40-130); Aspartate Amino Transferase 13 U/L (0-40); Blood Urea Nitrogen 37 mg/dL (8-23); Calcium 9.1 mg/dL (8.5-10.5); Carbon Dioxide 23 mmol/L (22-29); Chloride 89 mmol/L (98-107); Creatine Phosphokinase 36 U/L (39-308); Globulin 2.7 g/dL (1.3-4.6); Glomerular Filtration Rate 33.4 mL/min (90-130); Lipase 66 U/L (13-60); Magnesium 2.3 mg/dL (1.7-2.3); Osmolality Calculated 301 mOsm/kg (285-295); Sodium 127 mmol/L (136-145); Total Bilirubin 0.5 mg/dL (0.15-1.2); Total Protein 6.3 g/dL (6.6-8.7)
[2023-11-15 16:44] LABS: Creatinine Clr Calc Pharmacy 38.7544
[2023-11-15 16:45] LABS: Glucose 615 mg/dL (65-115); Ketone (Acetest) Serum Negative (Negative)
[2023-11-15 17:09] LABS: ABG PCO2 42.4 mmHg (35-45); Alveolar-Arterial Oxygen Gradi 1.7 mmHg (5-10); Arterial Blood Gas Hematocrit 35.7 % (42-52); Blood Gas Allen Test Pos; Blood Gas Operator Identificat WALCI; Blood Gas Sample Site Radial, right; Blood Gas Sample Type Arterial; Carboxyhemoglobin 1.4 %THgb (0.4-20.1); HCO3 ABG 26.1 mmol/L (22-26); HGB O2 Sat 94.7 % (95-100); Ionized Calcium Level - ABG 1.2 mmol/L (1.1-1.4); Methemoglobin 1.2 % (0.4-1.5); Oxygen Device NC; Oxygen Saturation ABG 97.2; PO2 ABG 83.9 mmHg (80.0-100.0); Potassium Level - ABG 3.4 mmol/L (3.5-5.0); Total Hemoglobin 11.7 g/dL (14-18)
[2023-11-15] MEDS: insulin regular-human 100 units/1 mL 14 UNIT IVP (17:12)
--- NOTE | 2023-11-15 17:28 | P.HP_ITS ---
Providers/Chief Complaint 2 Primary Care Provider: CHRIS Summers Chief Complaint: weakness History of Present Illness Yaya Astudillo is a 68 year old male With past medical history of UTI, urinary retention, Parkinson disease, essential tremor, chronic diarrhea, diabetic foot ulcer, obstructive sleep apnea, chronic kidney disease, hyperlipidemia, hypertension, obesity, PR, diabetes who presented to the hospital today complaining of lightheadedness and dizziness going on for the last several weeks. He is also been having some blurry vision and has been seeing ophthalmology. He has an upcoming appointment soon. Patient states he can recognize shapes and colors but cannot identify specific objects. His peripheral vision has been affected as well. He lives at home alone however has a son living nearby him. He does follow with endocrinology however has not made it to the last appointment in July. His last visit was April 22. Patient did have a continuous glucose monitor at the time. He recently had a stress test done in June which was positive for prior medium sized infarct seen in LAD territory no evidence of acute ischemia. EF 41%. Patient states that he has been declining for the last several weeks has been having frequent falls and lightheadedness. He went to confucianism to get baptized today however did not take his insulin. He is not surprised that his blood sugar is 615 on arrival. He states he knows eventually he needs to go to a custodial and wanted to get stuff done prior to that. At this visit he is not interested in going to a custodial setting. He lives at home alone and his son lives at the property in a cabin outside his house. He does have help at home at this time however eventually will need to go to a custodial and he is aware of that. 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 He has not attached to his arm at this time. Denies chest pain, shortness of breath, abdominal pain, nausea vomiting diarrhea at this time. Patient states that he is also not been taking his Parkinson's medications for not any particular reason. He states he takes marijuana Gummies instead. He states when he takes that it stops him from shaking. On arrival to ER blood glucose 615, patient was given 14 units of insulin. Repeat blood sugar is 347 at this time. Patient also received 1 L normal saline bolus. Medications/Allergies Home Medications Medication Instructions Recorded Confirmed Last Taken Type aspirin 81 mg tablet,delayed 81 mg PO QAM 05/10/19 10/20/23 07/27/23 History release (Adult Low Dose Aspirin) pantoprazole 40 mg tablet,delayed 40 mg PO DAILY 05/10/19 10/20/23 07/27/23 History release liraglutide 0.6 mg/0.1 mL (18 mg/3 1.8 mg SUBCUT DAILY 07/20/19 10/20/23 07/27/23 History mL) subcutaneous pen injector (Victoza 2-Kg) clopidogrel 75 mg tablet 75 mg PO DAILY 3 months #90 tabs 11/10/19 10/20/23 07/27/23 Rx metoprolol tartrate 50 mg tablet 50 mg PO BID #180 tabs 11/10/19 10/20/23 07/27/23 Rx naproxen sodium 220 mg tablet 220 mg PO Q12H PRN Pain 04/29/22 10/20/23 Unknown History (Aleve) cholecalciferol (vitamin D3) 25 25 mcg PO DAILY 10/10/22 10/20/23 07/27/23 History mcg (1,000 unit) capsule (Vitamin D3) cinnamon bark 500 mg capsule 500 mg PO EVERY OTHER DAY 10/10/22 10/20/23 07/26/23 History (Cinnamon) docosahexaenoic acid (dha)-epa 120 1 cap PO DAILY 10/10/22 10/20/23 07/27/23 History mg-180 mg capsule (Fish Oil) finasteride 5 mg tablet 5 mg PO DAILY #90 tabs 10/11/22 10/20/23 07/27/23 Rx tamsulosin 0.4 mg capsule 0.4 mg PO DAILY #90 caps 10/11/22 10/20/23 07/26/23 Rx atorvastatin 40 mg tablet 40 mg PO QPM 10/16/22 10/20/23 07/26/23 History polyethylene glycol 3350 17 gram 17 g PO DAILY PRN constipation #14 11/04/22 10/20/23 Unknown Rx oral powder packet (Miralax) ea furosemide 20 mg tablet (Lasix) 20 mg PO BID #60 tabs 11/24/22 10/20/23 07/27/23 Rx insulin detemir U-100 100 unit/mL 90 unit SUBCUT BID 01/21/23 10/20/23 07/27/23 History (3 mL) subcutaneous pen (Levemir FlexTouch U-100 Insulin) insulin lispro 100 unit/mL See Rx Instructions .Route .COMPLEX 06/16/23 10/20/23 07/27/23 History subcutaneous pen isosorbide mononitrate 60 mg 60 mg PO DAILY #30 tabs 06/16/23 10/20/23 07/27/23 Rx tablet,extended release 24 hr carbidopa 25 mg-levodopa 100 mg See Rx Instructions .Route 06/23/23 10/20/23 07/27/23 Rx tablet .COMPLEX #270 tabs nitroglycerin 0.4 mg sublingual See Rx Instructions .Route .COMPLEX 07/27/23 10/20/23 Unknown History tablet potassium chloride 20 mEq 20 meq PO DAILY 07/27/23 10/20/23 07/27/23 History tablet,extended release(part/cryst) (Klor-Con M) blood-glucose meter,continuous #1 ea 08/24/23 10/20/23 Unknown Rx (Dexcom G7 Machine Repairman) blood-glucose sensor (Dexcom G7 #3 ea 08/24/23 10/20/23 Unknown Rx Sensor device) flash glucose sensor (FreeStyle #6 ea 11/11/23 Unknown Rx Regina 2 Sensor kit) Allergies Allergy/AdvReac Type Severity Reaction Status Date / Time No Known Allergies Allergy Verified 11/15/23 15:07 PFSH Acute 2 PFSH: Medical History Acute on chronic renal failure Urinary tract infection Urinary retention Acute renal failure Ophthalmoplegia Parkinson disease Diabetic neuropathy associated with type 2 diabetes mellitus Essential tremor Cough Exposure to COVID-19 virus Chronic diarrhea Diabetic foot ulcer CÉSAR (obstructive sleep apnea) CKD (chronic kidney disease) (~10/12/20) Hyperlipidemia HTN (hypertension) Obesity Myocardial infarction ASHD (arteriosclerotic heart disease) Diabetes Surgical History S/P eye surgery Status post colonoscopy (12/24/20) sigmoid polyp Status post amputation of toe S/P angioplasty with stent Family History Mother CAD (coronary artery disease) Diabetes Social History Smoking and tobacco/nicotine status: former use of tobacco/nicotine Alcohol intake: former Substance/Drug Use: never Lives independently: Yes Household members: other Details: DOG Marital status: service: No Current occupational status: disabled 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 On room air HEENT: Normocephalic, atraumatic, EOMI, breathing comfortably on room air. Cardio: Regular rate rhythm, normal S1-S2 Respiratory: Clear to auscultation bilaterally no wheezes no rhonchi GI: Abdomen soft, nontender, bowel sounds + Extremities: No edema bilateral lower extremities. Data 11/15/23 16:07 11/15/23 16:07 Micro: Microbiology 11/15/23 16:07 Blood Culture - Preliminary Blood SPECIMEN COLLECTED A&P Assessment and plan (1) HTN (hypertension): (2) Hyperlipidemia: (3) Diabetes: (4) CKD (chronic kidney disease): (5) Parkinson disease: (6) Diabetic neuropathy associated with type 2 diabetes mellitus: (7) CÉSAR (obstructive sleep apnea): (8) Dystonic tremor: (9) JULIET (acute kidney injury): (10) Light-headed: (11) ASHD (arteriosclerotic heart disease): Plan #Dizziness lightheadedness, general decline last few weeks #Diabetes mellitus, insulin-dependent complicated by hyperglycemia #Parkinson's disease #Coronary artery disease #History of urinary tension #History of UTI #Chronic kidney disease #Hyperlipidemia #Hypertension #History of PR #Recent falls ? Patient has a known history of near syncopal episodes with falls. He states he has been having symptoms couple times a day in the past and he has seen his primary care doctor for it as well. He is also had a recent stress test which shows EF 41% with infarct in LAD area. He missed his cardiology and endocrinology appointment recently. Patient is on insulin at home. Was having trouble with Dexcom and was switched to regina yesterday. Patient not interested in going to a custodial at this time. ? Patient does have a history of Parkinson disease and was on carbidopa levodopa 25-101 tablet 3 times daily however was not taking his medication as directed. Instead he was taking marijuana Gummies. Will check orthostatic vitals at this time. I discussed with patient regarding restarting his Parkinson's medications. ? Had a stress test done in June 2023 and patient's syncopal and near syncopal episodes are a known chronic issue. I will hold off on repeating an echo at this time. Will place patient on telemetry ? Placed on moderate dose intensity sliding scale insulin ? Will need to confirm patient's home medications and restart on basal insulin ? Patient also on Lasix at home. I will hold at this time. Patient's med rec needs to be completed. Once that is done we will need to restart his home medications. It seems he is not compliant and does not take a lot of his medications. ? Accu-Chek with meals and bedtime ? Check urinalysis ? Check urine drug screen ? Sodium 127 however normal when corrected for hyperglycemia. ? Creatinine 2.0 today. Baseline 1.5-1.8. Will continue patient on gentle IV fluid hydration. ? Check PT OT ? Hip pelvis x-ray ruled out fractures and head CT was negative for acute hemorrhage. DVT prophylaxis: Heparin SQ twice daily Full code Attestations 2 Medical Necessity Statement*: observation admission, expect dc within 48 hours Diagnoses HTN (hypertension) I10 Hyperlipidemia E78.5 Diabetes E11.9 CKD (chronic kidney disease) N18.9 Parkinson disease G20 Diabetic neuropathy associated with type 2 diabetes mellitus E11.40 CÉSAR (obstructive sleep apnea) G47.33 Dystonic tremor G25.2 JULIET (acute kidney injury) N17.9 Light-headed R42 ASHD (arteriosclerotic heart disease) I25.10
[2023-11-15 17:37] LABS: Troponin(5th) Baseline 48 ng/L (0-15)
--- NOTE | 2023-11-15 17:39 | ECG_ITS ---
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 Measurements Intervals [place] Rate: 89 P: 30 AK: 198 QRS: -44 QRSD: 101 T: 49 QT: 378 QTc: 462 Interpretive Statements SINUS RHYTHM WITH OCCASIONAL SUPRAVENTRICULAR PREMATURE COMPLEXES LEFT AXIS DEVIATION [QRS AXIS < -30] POSSIBLE ANTERIOR MYOCARDIAL INFARCTION , OF INDETERMINATE AGE [30 ms Q WAVE IN V3/V4, OR R < 0.2 mV IN V4] Compared to ECG 11/15/2023 15:05:46 Myocardial infarct finding now present T-wave abnormality no longer present Electronically Signed On 11-16-2023 14:15:43 CDT by Neil Galdamez M.D. [id number]
[2023-11-15 17:49] LABS: Glucose Point of Care 347 mg/dL (70-110)
[2023-11-15] MEDS: heparin 5,000 unit/mL INJ 1 mL 5000 UNIT SUBCUT (18:24)
[2023-11-15 18:43] LABS: Procalcitonin 0.19 ng/mL (0-0.5)
[2023-11-15 19:46] LABS: Troponin 5 2HR 36.31 ng/L (0-15)
[2023-11-15 19:47] LABS: Troponin 5 2HR Delta -11.69 ABS# (0-10)
[2023-11-15 20:17] LABS: Estmated Average Glucose 378; Hemoglobin A1C 14.8 % (4.0-6.0)
[2023-11-15] MEDS: sodium chloride 0.9% 1,000 ML 125 ML IV (21:18)
--- NOTE | 2023-11-15 21:39 | ECG_ITS ---
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 Measurements Intervals [place] Rate: 81 P: 23 DC: 191 QRS: -36 QRSD: 96 T: 93 QT: 395 QTc: 460 Interpretive Statements SINUS RHYTHM WITH OCCASIONAL SUPRAVENTRICULAR PREMATURE COMPLEXES LEFT AXIS DEVIATION [QRS AXIS < -30] ANTEROSEPTAL MYOCARDIAL INFARCTION , OF INDETERMINATE AGE [40+ ms Q WAVE IN V1-V4] Compared to ECG 11/15/2023 17:55:29 No significant changes Electronically Signed On 11-16-2023 14:16:11 CDT by Neil Galdamez M.D. [id number]
[2023-11-15 21:50] LABS: Glucose Point of Care 125 mg/dL (70-110)
[2023-11-16] VITALS (10 sets, daily range): BP systolic 120–174; BP diastolic 69–92; PULSE 79–94; RESP 16–26; TEMP 36.6–37; O2SAT 93–99
[2023-11-16 00:36] LABS: Troponin 5 6HR 34.68 ng/L (0-15); Troponin 5 6HR Delta -13.32 ng/L (0-12)
[2023-11-16 01:53] LABS: Glucose Point of Care 119 mg/dL (70-110)
[2023-11-16 02:08] LABS: Urine Random Sodium 22 mmol/L
[2023-11-16 03:19] LABS: Basophils # 0.1 10^3/uL (0.0-0.1); Basophils % 1.5 %; Eosinophils # 0.2 10^3/uL (0.0-0.8); Eosinophils % 4.4 %; Hematocrit 34.1 % (37-53); Lymphocytes % 27.8 %; Mean Corpuscular HGB Conc 32.8 g/dL (30-55); Mean Corpuscular Volume 88.3 fl (82-101); Mean Platelet Volume 11.2 fL (7.4-10.4); Monocytes # 0.4 10^3/uL (0.2-0.9); Monocytes % 12.9 %; Neutrophils % 52.5 %; Nucleated Red Blood Cells % 0 %; Platelet Count 168 10^3/cmm (157-399); Red Blood Count 3.86 10^6/uL (3.85-5.65); White Blood Count 3.42 10^3/uL (3.29-11.43)
[2023-11-16 03:29] LABS: Alanine Aminotransferase 7 U/L (0-41); Albumin Level 3.3 g/dL (3.5-5.2); Alkaline Phosphatase 104 U/L (40-130); Anion Gap 13.3 (5-19); Aspartate Amino Transferase 14 U/L (0-40); Blood Urea Nitrogen 24 mg/dL (8-23); Calcium 8.4 mg/dL (8.5-10.5); Carbon Dioxide 24 mmol/L (22-29); Chloride 104 mmol/L (98-107); Creatinine Clr Calc Pharmacy 70.2811; Globulin 2.2 g/dL (1.3-4.6); Glomerular Filtration Rate 66.6 mL/min (90-130); Glucose 125 mg/dL (65-115); Magnesium 2.2 mg/dL (1.7-2.3); Osmolality Calculated 292 mOsm/kg (285-295); Potassium 3.3 mmol/L (3.5-5.1); Sodium 138 mmol/L (136-145); Total Bilirubin 0.3 mg/dL (0.15-1.2); Total Protein 5.5 g/dL (6.6-8.7)
[2023-11-16] MEDS: heparin 5,000 unit/mL INJ 1 mL 5000 UNIT SUBCUT ×2 (05:19→17:35)
[2023-11-16] MEDS: sodium chloride 0.9% 1,000 ML 125 ML IV (05:19)
[2023-11-16 05:43] LABS: Charge for UA Resulting for Rev
[2023-11-16 05:44] LABS: Bilirubin Urine Negative (Negative); Blood Urine Negative (Negative); Glucose Urine UA 3+ (Normal); Ketones Urine Negative (Negative); Leukocyte Esterase Urine Negative (Negative); Nitrate Urine Negative (Negative); Protein Urine 1+ (Negative); Specific Gravity, Urine 1.016 (1.005-1.030); Urine Appearance Clear (CLEAR); Urine Color Yellow (Yellow); Urobilinogen Urine 0.2 mg/dL (Negative)
[2023-11-16 05:50] LABS: Bacteria Urine None Seen /hpf; Hyaline Casts Urine 6.61 /lpf; RBC Urine 0-2 /hpf (0-2); Squamous Epithelial Cell Urine 0-5 /hpf (0-5); WBC Urine 0-5 /hpf (0-5)
[2023-11-16] MEDS: pantoprazole DR 40 mg Tablet PO (10:30)
[2023-11-16 11:12] LABS: Glucose Point of Care 279 mg/dL (70-110)
[2023-11-16] MEDS: insulin lispro 100 unit/1 mL SUBCUT ×3 (12:40→21:14)
--- NOTE | 2023-11-16 13:09 | P.PN_ITS ---
Subjective 2 Subjective: Patient worked with PT, agreeable to go to group home No overnight events No CBC BMP unremarkable findings Hypokalemia, no active chest pain Serum ketones negative Vitals/I&O/Wt Last Vital Signs Temp 98.6 F 11/16/23 12:00 Pulse 86 11/16/23 12:00 Resp 18 11/16/23 12:00 BP 174/92 11/16/23 12:00 Pulse Ox 98 11/16/23 12:36 O2 Del Method Room Air 11/16/23 04:00 O2 Flow Rate 98 11/16/23 12:00 11/15/23 11/16/23 11/16/23 22:59 06:59 14:59 Intake Total 1500 / 1500 1250 / 2750 360 / 360 Output Total 1000 / 1000 1160 / 1160 Balance 1500 / 1500 250 / 1750 -800 / -800 Weight last 48 hrs Weight 90.718 kg Weight 90.673 kg Weight 91.172 kg Physical Exam 2 Narrative: Patient has multiple bruises petechia lower extremities Vision is impaired No peripheral vision Pleasant cooperative Nonfocal neuroexam Able to follow commands work with PT S1, S2 Currently on room air Resting tremors Data 11/16/23 02:02 11/16/23 02:02 Micro: Microbiology 11/15/23 19:15 Blood Culture - Preliminary Blood 11/15/23 16:07 Blood Culture - Preliminary Blood SPECIMEN COLLECTED A&P Assessment and plan (1) CKD (chronic kidney disease): (2) Elbow contusion: (3) Parkinson disease: (4) Diabetic neuropathy associated with type 2 diabetes mellitus: (5) CÉSAR (obstructive sleep apnea): Plan Patient agreeable to go to group home Discontinue IV fluids Able to tolerate diet Patient has Parkinson's related resting tremors which is contributing to his recurrent falls I will restart carbidopa/levodopa dosages DVT prophylaxis heparin No acute fracture Consistent carb diet Awaiting group home placement PT OT recommendations appreciated Full code Attestations 2 Medical Necessity Statement*: Continue medical management Diagnoses CKD (chronic kidney disease) N18.9 Elbow contusion S50.00XA Parkinson disease G20 Diabetic neuropathy associated with type 2 diabetes mellitus E11.40 CÉSAR (obstructive sleep apnea) G47.33
[2023-11-16] MEDS: carbidopa-levodopa 25-100mg Tablet 1 EACH PO ×2 (15:34→21:14)
[2023-11-16 18:19] LABS: Glucose Point of Care 373 mg/dL (70-110)
[2023-11-16 20:45] LABS: Glucose Point of Care 263 mg/dL (70-110)
[2023-11-17] VITALS (9 sets, daily range): BP systolic 106–175; BP diastolic 70–98; PULSE 65–93; RESP 10–22; TEMP 36.6–36.7; O2SAT 96–97
[2023-11-17 05:02] LABS: Basophils % 1.1 %; Eosinophils # 0.1 10^3/uL (0.0-0.8); Hematocrit 39.7 % (37-53); Lymphocytes # 0.7 10^3/uL (0.8-4.8); Lymphocytes % 23.4 %; Mean Corpuscular HGB Conc 32.2 g/dL (30-55); Mean Corpuscular Hemoglobin 29.1 pg (27-33); Mean Corpuscular Volume 90.2 fl (82-101); Mean Platelet Volume 11.1 fL (7.4-10.4); Monocytes # 0.3 10^3/uL (0.2-0.9); Monocytes % 11.5 %; Neutrophils # 1.66 10^3/uL (1.8-7.7); Neutrophils % 59.6 %; Nucleated Red Blood Cells % 0 %; Platelet Count 192 10^3/cmm (157-399); Red Cell Distribution Width 13.8 % (12.1-15.1); White Blood Count 2.78 10^3/uL (3.29-11.43)
[2023-11-17 05:23] LABS: Anion Gap 13.6 (5-19); Blood Urea Nitrogen 11 mg/dL (8-23); Calcium 8.6 mg/dL (8.5-10.5); Carbon Dioxide 25 mmol/L (22-29); Chloride 105 mmol/L (98-107); Creatinine Clr Calc Pharmacy 77.3272; Glomerular Filtration Rate 74.3 mL/min (90-130); Glucose 171 mg/dL (65-115); Osmolality Calculated 293 mOsm/kg (285-295); Potassium 3.6 mmol/L (3.5-5.1); Sodium 140 mmol/L (136-145)
[2023-11-17] MEDS: heparin 5,000 unit/mL INJ 1 mL 5000 UNIT SUBCUT ×2 (06:01→17:46)
[2023-11-17 06:28] LABS: Glucose Point of Care 206 mg/dL (70-110)
[2023-11-17] MEDS: insulin lispro 100 unit/1 mL SUBCUT ×4 (08:14→21:39)
[2023-11-17] MEDS: carbidopa-levodopa 25-100mg Tablet 1 EACH PO ×3 (08:15→21:39)
[2023-11-17] MEDS: pantoprazole DR 40 mg Tablet PO (08:15)
--- NOTE | 2023-11-17 11:02 | P.PN_ITS ---
Subjective 2 Subjective: Awaiting placement No overnight events Repeat blood pressure which was taken this morning did not show hypertensive urgency Patient not endorsing new complaints Leukopenia noted Afebrile Patient stating slight improvement in resting tremors Vitals/I&O/Wt Last Vital Signs Temp 97.9 F 11/17/23 08:00 Pulse 89 11/17/23 08:00 Resp 22 H 11/17/23 08:00 BP 120/70 11/17/23 08:00 Pulse Ox 96 11/17/23 08:00 O2 Del Method Room Air 11/17/23 08:00 O2 Flow Rate 98 11/16/23 12:00 11/16/23 11/17/23 11/17/23 22:59 06:59 14:59 Intake Total 866 / 2462 Output Total 600 / 2160 600 / 2760 600 / 600 Balance 266 / 302 -600 / -298 -600 / -600 Weight last 48 hrs Weight 90.718 kg Weight 90.718 kg Weight 90.673 kg Weight 91.172 kg Physical Exam 2 Narrative: Awake and alert Pleasant Normotensive hemodynamic stable Currently on room air No new complaints Able to work with PT Nonfocal neuroexam Pleasant cooperative S1, S2 Resting tremors Data 11/17/23 04:03 11/17/23 04:03 Micro: Microbiology 11/15/23 16:07 Blood Culture - Preliminary Blood NEGATIVE TO DATE 11/15/23 19:15 Blood Culture - Preliminary Blood A&P Assessment and plan (1) HTN (hypertension): (2) Hyperglycemia: (3) Diabetes: (4) CKD (chronic kidney disease): (5) Parkinson disease: (6) Diabetic neuropathy associated with type 2 diabetes mellitus: (7) CÉSAR (obstructive sleep apnea): Plan Awaiting placement Resting tremors improved with addition of parkinsonian medications Blood sugar 171 mg/dL this morning Continue PT eval Patient is full code Will be able to SNF/rehab whenever gets accepted awaiting prior authorization approval Attestations 2 Medical Necessity Statement*: Continue medical management Diagnoses HTN (hypertension) I10 Hyperglycemia R73.9 Diabetes E11.9 CKD (chronic kidney disease) N18.9 Parkinson disease G20 Diabetic neuropathy associated with type 2 diabetes mellitus E11.40 CÉSAR (obstructive sleep apnea) G47.33
[2023-11-17 12:19] LABS: Glucose Point of Care 269 mg/dL (70-110)
[2023-11-17 17:47] LABS: Glucose Point of Care 266 mg/dL (70-110)
[2023-11-17 20:45] LABS: Glucose Point of Care 337 mg/dL (70-110)
[2023-11-18] VITALS (9 sets, daily range): BP systolic 137–175; BP diastolic 67–89; PULSE 73–107; RESP 12–20; TEMP 36.5–36.9; O2SAT 95–99
[2023-11-18] MEDS: heparin 5,000 unit/mL INJ 1 mL 5000 UNIT SUBCUT ×2 (05:55→17:42)
[2023-11-18 07:24] LABS: Glucose Point of Care 224 mg/dL (70-110)
[2023-11-18] MEDS: carbidopa-levodopa 25-100mg Tablet 1 EACH PO ×3 (08:01→21:13)
[2023-11-18] MEDS: insulin lispro 100 unit/1 mL SUBCUT ×4 (08:01→21:13)
[2023-11-18] MEDS: pantoprazole DR 40 mg Tablet PO (08:01)
--- NOTE | 2023-11-18 11:31 | PM.PN ---
Subjective Subjective: Patient able to work with PT with assistance Blood pressure stable Hyperglycemia Otherwise no overnight events Hemodynamically stable Awaiting authorization At this point we are concerned that patient will not be able to do well at home with his vision impairment and recurrent falls that is why we are seeking [place] [facility] placement and still awaiting authorization unfortunately Vitals/I&O/Wt Last Vital Signs Temp 97.9 F 11/18/23 07:53 Pulse 80 11/18/23 07:53 Resp 20 H 11/18/23 07:53 BP 142/89 11/18/23 07:53 Pulse Ox 99 11/18/23 07:53 O2 Del Method Room Air 11/18/23 07:53 O2 Flow Rate 98 11/16/23 12:00 11/17/23 11/18/23 11/18/23 22:59 06:59 14:59 Intake Total 760 / 1240 360 / 360 Output Total 1000 / 1600 1000 / 2600 300 / 300 Balance -240 / -360 -1000 / -1360 60 / 60 Weight last 48 hrs Weight 89.811 kg Weight 90.718 kg Physical Exam Narrative: Euvolemic Hemodynamics able Currently on room air Pleasant cooperative Nonfocal neuroexam S1, S2 Abdomen soft Data 11/17/23 04:03 11/17/23 04:03 Micro: Microbiology 11/15/23 19:15 Blood Culture - Preliminary Blood Bacillus sp not b. anthracis A&P Assessment and plan (1) HTN (hypertension): (2) Diabetes: (3) Hyperglycemia: (4) Parkinson disease: (5) Diabetic neuropathy associated with type 2 diabetes mellitus: (6) CÉSAR (obstructive sleep apnea): Plan Hyperglycemia Add Lantus I will reduce the dose from home regimen Hypertension: Add Imdur Coronary disease continue aspirin Plavix Recurrent falls related to Parkinson's, added carbidopa levodopa Awaiting authorization to go to [place] [facility] Patient has vision impairment not safe to return home secondary to recurrent falls Attestations Medical Necessity Statement*: Continue medical management Diagnoses HTN (hypertension) I10 Diabetes E11.9 Hyperglycemia R73.9 Parkinson disease G20 Diabetic neuropathy associated with type 2 diabetes mellitus E11.40 CÉSAR (obstructive sleep apnea) G47.33
[2023-11-18 12:57] LABS: Glucose Point of Care 274 mg/dL (70-110)
[2023-11-18 16:59] LABS: Glucose Point of Care 243 mg/dL (70-110)
[2023-11-18] MEDS: metoprolol tartrate 50 mg Tablet PO (17:42)
[2023-11-18 20:58] LABS: Glucose Point of Care 283 mg/dL (70-110)
[2023-11-18] MEDS: insulin glargine 100 units/1 mL 40 UNIT SUBCUT (21:13)
[2023-11-19] VITALS (7 sets, daily range): BP systolic 106–145; BP diastolic 51–94; PULSE 70–78; RESP 18–20; TEMP 36.6; O2SAT 92–99; BMI 30.1
[2023-11-19] MEDS: heparin 5,000 unit/mL INJ 1 mL 5000 UNIT SUBCUT (05:40)
[2023-11-19] MEDS: aspirin 81 mg EC Tablet PO (05:40)
[2023-11-19 07:04] LABS: Glucose Point of Care 216 mg/dL (70-110)
[2023-11-19] MEDS: isosorbide mononitrate ER 60 mg Tablet PO (07:50)
[2023-11-19] MEDS: metoprolol tartrate 50 mg Tablet PO (07:50)
[2023-11-19] MEDS: carbidopa-levodopa 25-100mg Tablet 1 EACH PO (07:50)
[2023-11-19] MEDS: insulin lispro 100 unit/1 mL SUBCUT ×2 (07:50→12:09)
[2023-11-19] MEDS: clopidogrel 75 mg Tablet PO (07:51)
[2023-11-19] MEDS: pantoprazole DR 40 mg Tablet PO (07:51)
--- NOTE | 2023-11-19 09:53 | P.PN_ITS ---
Subjective 2 Subjective: Hyperglycemia Adjust insulin No overnight events Awaiting authorization No overnight complaints Vitals/I&O/Wt Last Vital Signs Temp 97.8 F 11/19/23 00:46 Pulse 73 11/19/23 06:00 Resp 20 H 11/19/23 03:17 BP 137/77 11/19/23 03:17 Pulse Ox 96 11/19/23 03:17 O2 Del Method Room Air 11/19/23 03:17 O2 Flow Rate 98 11/16/23 12:00 11/18/23 11/19/23 11/19/23 22:59 06:59 14:59 Intake Total 480 / 1320 Output Total 400 / 1200 Balance 80 / 120 Weight last 48 hrs Weight 89.811 kg Weight 89.811 kg Physical Exam 2 Narrative: Awake and alert Eating breakfast Pleasant and cooperative Euvolemic Tremors noted at rest Hemodynamically stable S1, S2 Nonfocal neuroexam Data 11/17/23 04:03 11/17/23 04:03 A&P Assessment and plan (1) HTN (hypertension): (2) Diabetes: (3) Parkinson disease: (4) Diabetic neuropathy associated with type 2 diabetes mellitus: (5) Dystonic tremor: (6) CÉSAR (obstructive sleep apnea): Plan We are still waiting for authorization to get patient to safe place where he will not be able to worry about falling he has vision impairment, if [place] [facility] authorization fails we will try to get him assisted living however within vision impairment that might be a bit of a challenge, we are continuing his medications adjust insulin for hyperglycemia continue carbidopa for parkinson's disease Attestations 2 Medical Necessity Statement*: Awaiting placement Coding Level of Care Code Acute Code for Chg Fwd Diagnoses HTN (hypertension) I10 Diabetes E11.9 Parkinson disease G20 Diabetic neuropathy associated with type 2 diabetes mellitus E11.40 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
[2023-11-19 10:50] LABS: Glucose Point of Care 281 mg/dL (70-110)
--- NOTE | 2023-11-19 11:24 | PM.DCS ---
Discharge Providers Date of Admission: 11/15/23 17:29 Date of Discharge: November 19, 2023 Attending Provider at Admission: Ling Wei MD Attending Provider at Discharge: Jimmy Almanzar MD Primary Care Provider: CHRIS Summers Diagnoses at Discharge Discharge Diagnosis (1) HTN (hypertension): Status: Acute (2) Diabetes: Status: Acute (3) Parkinson disease: Status: Acute (4) Diabetic neuropathy associated with type 2 diabetes mellitus: Status: Acute (5) Dystonic tremor: Status: Acute (6) CÉSAR (obstructive sleep apnea): Status: Acute Reason for Visit Reason for Visit: weakness Hospital Course Hospital Course 68-year male with vision impairment, who lives alone presented with recurrent falls, patient stated that he stopped taking his Parkinson's medications, he was using marijuana Gummies. In the hospital patient remained hemodynamically stable, did well with physical therapy, we recommended assisted placement because he lives alone and is at risk for recurrent falls. We were able to start him back on carbidopa levodopa and patient did very well with mild improvement of resting tremors. He is being discharged to assisted with stable hemodynamics. He will continue his high-dose Lantus with diabetic diet. Physical Exam Narrative: Awake and alert Eating breakfast Pleasant and cooperative Euvolemic Tremors noted at rest Hemodynamically stable S1, S2 Nonfocal neuroexam Discharge Data Studies Completed and Pending Completed Studies During Hospitalization Category Date Time Status CT head wo con* [id number] Stat Cat Scan 11/15/23 16:22 Completed XR hip LT 2-3V wo/w pel* [id number] Stat Exams 11/15/23 16:22 Completed XR hip RT 2-3V wo/w pel* [id number] Stat Exams 11/15/23 16:22 Completed Pending at discharge Category Date Time Status Blood Culture Stat Lab 11/15/23 19:15 Results Radiology Impressions Head CT 11/15/23 16:22 IMPRESSION: No intracranial posttraumatic changes. Hip/Pelvis X-Ray 11/15/23 16:22 IMPRESSION: No acute fracture or dislocation. Laboratory Results WBC 2.78 10^3/uL (3.29-11.43) L 11/17/23 04:03 RBC 4.40 10^6/uL (3.85-5.65) 11/17/23 04:03 Hgb 12.80 g/dL (11.27-16.99) 11/17/23 04:03 Hct 39.7 % (37-53) 11/17/23 04:03 MCV 90.2 fl (82-101) 11/17/23 04:03 MCH 29.1 pg (27-33) 11/17/23 04:03 MCHC 32.2 g/dL (30-55) 11/17/23 04:03 RDW 13.8 % (12.1-15.1) 11/17/23 04:03 Plt Count 192 10^3/cmm (157-399) 11/17/23 04:03 MPV 11.1 fL (7.4-10.4) H 11/17/23 04:03 Neut % (Auto) 59.6 % 11/17/23 04:03 Lymph % (Auto) 23.4 % 11/17/23 04:03 [place] % (Auto) 11.5 % 11/17/23 04:03 Eos % (Auto) 4.0 % 11/17/23 04:03 Baso % (Auto) 1.1 % 11/17/23 04:03 Neut # (Auto) 1.66 10^3/uL (1.8-7.7) L 11/17/23 04:03 Lymph # (Auto) 0.7 10^3/uL (0.8-4.8) L 11/17/23 04:03 [place] # (Auto) 0.3 10^3/uL (0.2-0.9) 11/17/23 04:03 Eos # (Auto) 0.1 10^3/uL (0.0-0.8) 11/17/23 04:03 Baso # (Auto) 0.0 10^3/uL (0.0-0.1) 11/17/23 04:03 Nucleated RBC % (auto) 0 % 11/17/23 04:03 Nucleated RBCs # 0.0 /100WBC 11/17/23 04:03 Specimen Type Arterial 11/15/23 16:58 Sample Site Radial, right 11/15/23 16:58 ABG pH 7.40 (7.35-7.45) 11/15/23 16:58 ABG pCO2 42.4 mmHg (35-45) 11/15/23 16:58 ABG pO2 83.9 mmHg (80.0-100.0) 11/15/23 16:58 ABG HCO3 26.1 mmol/L (22-26) H 11/15/23 16:58 ABG O2 Saturation 97.2 11/15/23 16:58 ABG Base Excess 1.0 mmol/L (-2.0-2.0) 11/15/23 16:58 Pete Test Pos 11/15/23 16:58 A-a O2 Gradient 1.7 mmHg (5-10) L 11/15/23 16:58 Hematocrit 35.7 % (42-52) L 11/15/23 16:58 Hgb O2 Saturation 94.7 % (95-100) L 11/15/23 16:58 Carboxyhemoglobin 1.4 %THgb (0.4-20.1) 11/15/23 16:58 Methemoglobin 1.2 % (0.4-1.5) 11/15/23 16:58 Total Hemoglobin 11.7 g/dL (14-18) L 11/15/23 16:58 Sodium 132.0 mmol/L (131-143) 11/15/23 16:58 Potassium 3.4 mmol/L (3.5-5.0) L 11/15/23 16:58 Glucose 423.0 mg/dL (70-115) H 11/15/23 16:58 Ionized Calcium 1.2 mmol/L (1.1-1.4) 11/15/23 16:58 O2 Delivery Device Nc 11/15/23 16:58 O2 Liters/Min 1.0 % 11/15/23 16:58 Managing Consultant Clinical Professor ID [place] 11/15/23 16:58 Sodium 140 mmol/L (136-145) 11/17/23 04:03 Potassium 3.6 mmol/L (3.5-5.1) 11/17/23 04:03 Chloride 105 mmol/L (98-107) 11/17/23 04:03 Carbon Dioxide 25 mmol/L (22-29) 11/17/23 04:03 Anion Gap 13.6 (5-19) 11/17/23 04:03 BUN 11 mg/dL (8-23) 11/17/23 04:03 Creatinine 1.0 mg/dL (0.7-1.2) 11/17/23 04:03 GFR Calculation 74.3 mL/min (90-130) L 11/17/23 04:03 Glucose 171 mg/dL (65-115) H 11/17/23 04:03 POC Glucose 281 mg/dL (70-110) H 11/19/23 10:47 Estimat Average Glucose 378 11/15/23 16:07 Hemoglobin A1c 14.8 % (4.0-6.0) H 11/15/23 16:07 Calculated Osmolality 293 mOsm/kg (285-295) 11/17/23 04:03 Lactic Acid 1.4 mmol/L (0.5-2.2) 11/15/23 16:07 Calcium 8.6 mg/dL (8.5-10.5) 11/17/23 04:03 Magnesium 2.2 mg/dL (1.7-2.3) 11/16/23 02:02 Total Bilirubin 0.3 mg/dL (0.15-1.2) 11/16/23 02:02 AST 14 U/L (0-40) 11/16/23 02:02 ALT 7 U/L (0-41) 11/16/23 02:02 Alkaline Phosphatase 104 U/L (40-130) 11/16/23 02:02 Creatine Kinase 36 U/L (39-308) L 11/15/23 16:07 Troponin T Baseline 48 ng/L (0-15) H 11/15/23 16:07 Troponin T 120 Minute 36.31 ng/L (0-15) H 11/15/23 19:15 Delta Troponin T -11.69 ABS# (0-10) L 11/15/23 19:15 Troponin T Hi Sens 6Hr 34.68 ng/L (0-15) H 11/15/23 23:24 Troponin T Hi Sens 6Hr Delta -13.32 ng/L (0-12) L 11/15/23 23:24 Total Protein 5.5 g/dL (6.6-8.7) L 11/16/23 02:02 Albumin 3.3 g/dL (3.5-5.2) L 11/16/23 02:02 Globulin 2.2 g/dL (1.3-4.6) 11/16/23 02:02 Lipase 66 U/L (13-60) H 11/15/23 16:07 Procalcitonin 0.19 ng/mL (0-0.5) 11/15/23 16:07 TSH 2.00 uIU/mL (0.27-4.20) 11/15/23 16:07 Urine Color Yellow (Yellow) 11/15/23 01:37 Urine Appearance Clear (CLEAR) 11/15/23 01:37 Urine pH 5.0 (5-7) 11/15/23 01:37 Ur Specific [place] 1.016 (1.005-1.030) 11/15/23 01:37 Urine Protein 1+ (Negative) A 11/15/23 01:37 Urine Glucose (UA) 3+ (Normal) H 11/15/23 01:37 Urine Ketones Negative (Negative) 11/15/23 01:37 Urine Blood Negative (Negative) 11/15/23 01:37 Urine Nitrate Negative (Negative) 11/15/23 01:37 Urine Bilirubin Negative (Negative) 11/15/23 01:37 Urine Urobilinogen 0.2 mg/dL (Negative) 11/15/23 01:37 Ur Leukocyte Esterase Negative (Negative) 11/15/23 01:37 Urine RBC 0-2 /hpf (0-2) 11/15/23 01:37 Urine WBC 0-5 /hpf (0-5) 11/15/23 01:37 Ur Squamous Epith Cells 0-5 /hpf (0-5) 11/15/23 01:37 Amorphous Sediment Not Reportable 11/15/23 01:37 Urine Bacteria None seen /hpf (NONE) 11/15/23 01:37 Hyaline Casts 6.61 /lpf 11/15/23 01:37 Ur Random Sodium 22 mmol/L 11/16/23 01:37 Serum Ketones Negative (Negative) 11/15/23 16:07 Vitals Last Vital Signs Temp 97.8 F 11/19/23 00:46 Pulse 72 11/19/23 10:35 Resp 18 11/19/23 10:35 BP 106/51 11/19/23 10:52 Pulse Ox 96 11/19/23 10:35 O2 Del Method Room Air 11/19/23 03:17 O2 Flow Rate 98 11/16/23 12:00 Discharge Plan Discharge Patient Disposition: Xfer SNF Condition: Stable Prescriptions: Continued aspirin [Adult Low Dose Aspirin] 81 mg tablet,delayed release (DR/EC) 81 mg PO QAM pantoprazole 40 mg tablet,delayed release (DR/EC) 40 mg PO DAILY atorvastatin 40 mg tablet 40 mg PO QPM Levemir FlexTouch U100 Insulin 100 unit/mL (3 mL) insulin pen 90 unit SUBCUT BID clopidogrel 75 mg tablet 75 mg PO DAILY 90 Days Qty: 90 3RF metoprolol tartrate 50 mg tablet 50 mg PO BID Qty: 180 3RF (DME) Dexcom G7 Motorboat Mechanic Misc See Rx Instructions .Route Qty: 1 0RF Rx Instructions: As directed (DME) Dexcom G7 Sensor Device See Rx Instructions .Route Qty: 3 1RF Rx Instructions: As directed (DME) FreeStyle [place] 2 Sensor Kit See Rx Instructions .ROUTE .COMPLEX Qty: 6 0RF Dose Instruction: USE DIRECTED Rx Instructions: USE DIRECTED liraglutide [Victoza 2-Kg] 0.6 mg/0.1 mL (18 mg/3 mL) Pen Injector 1.8 mg SUBCUT DAILY naproxen sodium [Aleve] 220 mg tablet 220 mg PO Q12H PRN (Reason: Pain) polyethylene glycol 3350 [Miralax] 17 gram powder in packet 17 g PO DAILY PRN (Reason: constipation) Qty: 14 0RF potassium chloride [Klor-Con M20] 20 mEq tablet,ER particles/crystals 20 meq PO DAILY nitroglycerin 0.4 mg tablet, sublingual See Rx Instructions .ROUTE .COMPLEX Rx Instructions: DISSOLVE ONE TABLET UNDER THE TONGUE EVERY 5 MINUTES NEEDED FOR CHEST PAIN. DO NOT EXCEED A TOTAL OF 3 DOSES IN 15 MINUTES - REPORT TO THE EMERGENCY ROOM IF 3 DOSES ARE NEEDED TO CONTROL PAIN furosemide 40 mg tablet 40 mg PO DAILY carbidopa-levodopa 25-100 mg tablet See Rx Instructions .ROUTE .COMPLEX Qty: 30 4RF Rx Instructions: TAKE 1 TABLET BY MOUTH IN THE MORNING AND 1 TAB AT NOON AND 1 TAB AT 4 IN THE EVENING. cholecalciferol (vitamin D3) [Vitamin D3] 25 mcg (1,000 unit) Capsule 25 mcg PO DAILY Fish Oil 120-180 mg Capsule 1 cap PO DAILY tamsulosin 0.4 mg Capsule 0.4 mg PO DAILY Qty: 90 1RF finasteride 5 mg Tablet 5 mg PO DAILY Qty: 90 3RF insulin lispro 100 unit/mL insulin pen See Rx Instructions .ROUTE .COMPLEX Rx Instructions: TAKE 15 UNITS DAILY. IF BG OVER 200, TAKE 25 UNITS. 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
--- NOTE | 2023-11-19 13:29 | PC.NURSE ---
Discharge Note Patient discharged to SNF via POV accompanied by son. Discharge instructions reviewed with patient and/or business banking representative. Mobile pharmacy medications and/or prescriptions provided. Belongings/home medications returned.
== END 2023-11-19 13:29 | disposition skilled nursing facility (03) ==
LOC: ER 16:02 → ICU 17:43 → CSU 19:27
PROVIDERS: Admitting Provider Internal Medicine; Emergency Provider Family Medicine; PCP Nurse Practitioner Family; Visit Provider Internal Medicine
DX: G20.C Parkinsonism, unspecified (principal); E11.40 Type 2 diabetes mellitus with diabetic neuropathy, unspecified; E11.22 Type 2 diabetes mellitus with diabetic chronic kidney disease; I12.9 Hypertensive chronic kidney disease with stage 1 through stage 4 chronic kidney disease, or unspecified chronic kidney disease; N18.9 Chronic kidney disease, unspecified; G25.2 Other specified forms of tremor; G47.33 Obstructive sleep apnea (adult) (pediatric); Z91.81 History of falling; Z91.148 Patient's other noncompliance with medication regimen for other reason; Z79.4 Long term (current) use of insulin; I25.10 Atherosclerotic heart disease of native coronary artery without angina pectoris; Z79.82 Long term (current) use of aspirin; I25.2 Old myocardial infarction; Z87.891 Personal history of nicotine dependence
CPT/HCPCS: 36415; 36416; 36600; 70450; 73502; 80048; 80051; 80053; 81003; 81015; 82009; 82330; 82550; 82805; 82962; 83036; 83605; 83690; 83735; 84145; 84300; 84443; 84484; 85025; 87040; 87150; 87205; 93005; 96361; 96365; 96372; 96375; 96376; 97116; 97161; 97165; 97530; 99285; G0378; J1644; J1815; J2405; J7030

== ENCOUNTER 2023-12-13 13:44 | Emergency (ER) | payer MEDICARE, MEDICAID, SELFPAY ==
[2023-12-13 13:48] VITALS: BP 169/92; PULSE 83; RESP 18; TEMP 36.8; O2SAT 100; BMI 30.5
--- NOTE | 2023-12-13 13:53 | ECG_ITS ---
[facility] Test Date: 2023-12-13 Pat Name: Yaya Astudillo Department: Room: Gender: Male Fisher Scallop: : 1955 Requested By: Abhishek Fowler Order Number: [id number] MD: Harvey Martins M.D. Measurements Intervals [place] Rate: 85 P: 60 WA: 194 QRS: -44 QRSD: 85 T: 74 QT: 379 QTc: 453 Interpretive Statements SINUS RHYTHM WITH OCCASIONAL VENTRICULAR PREMATURE COMPLEXES LEFT AXIS DEVIATION [QRS AXIS < -30] SEPTAL MYOCARDIAL INFARCTION , OF INDETERMINATE AGE [40+ ms Q WAVE IN V1/V2] Compared to ECG 11/15/2023 21:12:30 Ventricular premature complex(es) now present Myocardial infarct finding still present Electronically Signed On 12-13-2023 14:28:07 CDT by Harvey Martins M.D. [id number] atiya
--- NOTE | 2023-12-13 13:53 | XRR_ITS ---
PROCEDURE INFORMATION: Exam: XR Chest Exam date and time: 12/13/2023 2:03 PM Age: 68 years old Clinical indication: Pain; Chest pressure; Additional info: Cp TECHNIQUE: Imaging protocol: Radiologic exam of the chest. Views: 1 view. COMPARISON: CR XR chest 1V portable [id number] 07/27/2023 11:20 AM FINDINGS: Lungs: Unremarkable. No consolidation. Pleural spaces: Unremarkable. No pleural effusion. No pneumothorax. Heart/Mediastinum: Unremarkable. No cardiomegaly. Bones/joints: Moderate degenerative disease of bilateral acromioclavicular joints and mild degenerative disease of bilateral glenohumeral joints. XR/XR chest 1V portable [id number] IMPRESSION: No acute cardiopulmonary process.
--- NOTE | 2023-12-13 13:57 | ED_ITS ---
HPI - Back Pain/Injury 2 General: Chief Complaint: Back Pain/Injury Stated Complaint: back pain Time Seen by Provider: 12/13/23 13:47 Source: patient and EMS Mode of arrival: EMS Limitations: no limitations History of Present Illness: 60-year-old male states been having mid back pain going on for the last 4 to 5 days. States mainly concerned she has an extensive cardiac history and states that he has had heart attacks with back pain. States the pain here is improved is currently 4 out of 10 denies any shortness of breath denies any nausea denies any diaphoresis Associated symptoms: Deny abdominal pain, chills, dysuria, fever(s), nausea or vomiting Related Data Home Medications Medication Instructions Recorded Confirmed aspirin 81 mg tablet,delayed 81 mg PO QAM 05/10/19 11/15/23 release (Adult Low Dose Aspirin) pantoprazole 40 mg tablet,delayed 40 mg PO DAILY 05/10/19 11/15/23 release liraglutide 0.6 mg/0.1 mL (18 mg/3 1.8 mg SUBCUT DAILY 07/20/19 11/15/23 mL) subcutaneous pen injector (Victoza 2-Kg) naproxen sodium 220 mg tablet 220 mg PO Q12H PRN Pain 04/29/22 11/15/23 (Aleve) cholecalciferol (vitamin D3) 25 25 mcg PO DAILY 10/10/22 11/15/23 mcg (1,000 unit) capsule (Vitamin D3) docosahexaenoic acid (dha)-epa 120 1 cap PO DAILY 10/10/22 11/15/23 mg-180 mg capsule (Fish Oil) atorvastatin 40 mg tablet 40 mg PO QPM 10/16/22 11/15/23 insulin detemir U-100 100 unit/mL 90 unit SUBCUT BID 01/21/23 11/15/23 (3 mL) subcutaneous pen (Levemir FlexTouch U-100 Insulin) insulin lispro 100 unit/mL See Rx Instructions .Route .COMPLEX 06/16/23 11/15/23 subcutaneous pen nitroglycerin 0.4 mg sublingual See Rx Instructions .Route .COMPLEX 07/27/23 11/16/23 tablet potassium chloride 20 mEq 20 meq PO DAILY 07/27/23 11/15/23 tablet,extended release(part/cryst) (Klor-Con M) furosemide 40 mg tablet 40 mg PO DAILY 11/16/23 11/16/23 Previous Rx's Medication Instructions Recorded clopidogrel 75 mg tablet 75 mg PO DAILY 3 months #90 tabs 11/10/19 metoprolol tartrate 50 mg tablet 50 mg PO BID #180 tabs 11/10/19 finasteride 5 mg tablet 5 mg PO DAILY #90 tabs 10/11/22 tamsulosin 0.4 mg capsule 0.4 mg PO DAILY #90 caps 10/11/22 polyethylene glycol 3350 17 gram 17 g PO DAILY PRN constipation #14 11/04/22 oral powder packet (Miralax) ea isosorbide mononitrate 60 mg 60 mg PO DAILY #30 tabs 06/16/23 tablet,extended release 24 hr blood-glucose meter,continuous #1 ea 08/24/23 (Dexcom G7 Retail Field Supervisor) blood-glucose sensor (Dexcom G7 #3 ea 08/24/23 Sensor device) flash glucose sensor (FreeStyle #6 ea 11/11/23 Regina 2 Sensor kit) carbidopa 25 mg-levodopa 100 mg See Rx Instructions .Route 11/17/23 tablet .COMPLEX #30 tabs Allergies Allergy/AdvReac Type Severity Reaction Status Date / Time No Known Allergies Allergy Verified 11/15/23 15:07 Review of Systems 2 Const: Denies: fever(s), chills, body aches or change in appetite ENMT: Denies: throat pain or dental pain Card: Denies: chest pain Resp: Denies: dyspnea GI: Denies: abdominal pain, nausea, vomiting or diarrhea : Denies: dysuria Musc: Reports: back pain; Denies: neck pain Skin/Breast: Denies: rash Neuro: Denies: headache(s) PFS ED 2 PFSH: Medical History Hyperglycemia JULIET (acute kidney injury) Elbow contusion Dystonic tremor Acute on chronic renal failure Urinary tract infection Urinary retention Acute renal failure Ophthalmoplegia Parkinson disease Diabetic neuropathy associated with type 2 diabetes mellitus Essential tremor Cough Exposure to COVID-19 virus Chronic diarrhea Diabetic foot ulcer CÉSAR (obstructive sleep apnea) CKD (chronic kidney disease) (~10/12/20) Hyperlipidemia HTN (hypertension) Obesity Myocardial infarction ASHD (arteriosclerotic heart disease) Diabetes Surgical History S/P eye surgery Status post colonoscopy (12/24/20) sigmoid polyp Status post amputation of toe S/P angioplasty with stent Family History Mother CAD (coronary artery disease) Diabetes Social History Smoking and tobacco/nicotine status: former use of tobacco/nicotine Alcohol intake: former Substance/Drug Use: never Lives independently: Yes Household members: other Details: DOG Marital status: service: No Current occupational status: disabled Previous occupational history: [employer] Physical Exam 2 Const: COMMON NORMALS: no acute distress, patient oriented x3 and healthy appearing HENMT: COMMON NORMALS: normocephalic and atraumatic HEAD & SCALP: n ormocephalic and atraumatic Eye: COMMON NORMALS: Equal, round and reactive pupils present and EOMs intact bilaterally PUPIL: Yes Equal, round and reactive pupils present Neck/C-Spine: COMMON NORMALS: full ROM and supple Chest: COMMONS NORMALS: normal inspection of the chest Resp: COMMON NORMALS: normal respiratory effort, No retractions, No use of accessory muscles and clear to auscultation bilaterally AUSCULTATION: clear to auscultation bilaterally Cardio: COMMON NORMALS: regular rate, regular rhythm and No murmurs present (Cardio) RATE: regular rate RHYTHM: regular rhythm GI: COMMON NORMALS: Normal to inspection, nondistended, normoactive bowel sounds present, Soft to palpation, non-tender and no masses PALPATION: Yes Soft to palpation Extremity: COMMON NORMALS: normal to inspection and full ROM Neuro: COMMON NORMALS: patient oriented x3, moves all extremities and no focal motor deficits Psych: COMMON NORMALS: mental status grossly normal, Normal thought process present and cooperative THOUGHT PROCESS: Normal thought process present Skin: COMMON NORMALS: no rashes or lesions noted and no wounds GENERAL SKIN EXAM: no rashes or lesions noted Course 2 Vital Signs: Vital signs: Vital Signs Temperature 98.2 F 12/13/23 13:48 Pulse Rate 85 12/13/23 14:17 Respiratory Rate 15 12/13/23 14:17 Blood Pressure 150/78 12/13/23 14:19 Pulse Oximetry 97 12/13/23 14:17 Oxygen Delivery Me thod Room Air 12/13/23 13:48 MDM - Back Pain/Injury Medical Decision Making Patient presents here with back pain he is concerned as he had cardiac issues in the past with back pain is likely muscular his troponins here are negative no signs of ACS he stable for discharge is follow-up with PCP and return if worsening he understands agrees to plan. Medical Records I reviewed the patient's medical records. Labs I reviewed the patient's lab results. 12/13/23 14:10 12/13/23 14:10 Radiology Impressions Chest X-Ray 12/13/23 13:53 IMPRESSION: No acute cardiopulmonary process. Laboratory Results WBC 5.77 10^3/uL (3.29-11.43) 12/13/23 14:10 RBC 4.61 10^6/uL (3.85-5.65) 12/13/23 14:10 Hgb 13.10 g/dL (11.27-16.99) 12/13/23 14:10 Hct 42.3 % (37-53) 12/13/23 14:10 MCV 91.8 fl (82-101) 12/13/23 14:10 MCH 28.4 pg (27-33) 12/13/23 14:10 MCHC 31.0 g/dL (30-55) 12/13/23 14:10 RDW 13.8 % (12.1-15.1) 12/13/23 14:10 Plt Count 199 10^3/cmm (157-399) 12/13/23 14:10 MPV 10.4 fL (7.4-10.4) 12/13/23 14:10 Neut % (Auto) 72.8 % 12/13/23 14:10 Lymph % (Auto) 16.5 % 12/13/23 14:10 [place] % (Auto) 8.0 % 12/13/23 14:10 Eos % (Auto) 1.9 % 12/13/23 14:10 Baso % (Auto) 0.5 % 12/13/23 14:10 Neut # (Auto) 4.20 10^3/uL (1.8-7.7) 12/13/23 14:10 Lymph # (Auto) 1.0 10^3/uL (0.8-4.8) 12/13/23 14:10 [place] # (Auto) 0.5 10^3/uL (0.2-0.9) 12/13/23 14:10 Eos # (Auto) 0.1 10^3/uL (0.0-0.8) 12/13/23 14:10 Baso # (Auto) 0.0 10^3/uL (0.0-0.1) 12/13/23 14:10 Nucleated RBC % (auto) 0 % 12/13/23 14:10 Nucleated RBCs # 0.0 /100WBC 12/13/23 14:10 Sodium 142 mmol/L (136-145) 12/13/23 14:10 Potassium 4.3 mmol/L (3.5-5.1) 12/13/23 14:10 Chloride 102 mmol/L (98-107) 12/13/23 14:10 Carbon Dioxide 27 mmol/L (22-29) 12/13/23 14:10 Anion Gap 17.3 (5-19) 12/13/23 14:10 BUN 17 mg/dL (8-23) 12/13/23 14:10 Creatinine 1.2 mg/dL (0.7-1.2) 12/13/23 14:10 GFR Calculation 60.2 mL/min (90-130) L 12/13/23 14:10 Glucose 178 mg/dL (65-115) H 12/13/23 14:10 Calculated Osmolality 300 mOsm/kg (285-295) H 12/13/23 14:10 Calcium 9.1 mg/dL (8.5-10.5) 12/13/23 14:10 Total Bilirubin 0.4 mg/dL (0.15-1.2) 12/13/23 14:10 AST 22 U/L (0-40) 12/13/23 14:10 ALT 23 U/L (0-41) 12/13/23 14:10 Alkaline Phosphatase 110 U/L (40-130) 12/13/23 14:10 Troponin T Baseline 24 ng/L (0-15) H 12/13/23 14:10 Troponin T 120 Minute 21.09 ng/L (0-15) H 12/13/23 15:57 Delta Troponin T -2.91 ABS# (0-10) L 12/13/23 15:57 Total Protein 6.7 g/dL (6.6-8.7) 12/13/23 14:10 Albumin 4.0 g/dL (3.5-5.2) 12/13/23 14:10 Globulin 2.7 g/dL (1.3-4.6) 12/13/23 14:10 Lipase 44 U/L (13-60) 12/13/23 14:10 All radiology interpretation(s) finalized by discharge EKG Data EKG 1: I personally reviewed and interpreted this EKG as follows: EKG interpretation date: 12/13/23 EKG interpretation time: 13:48 Interpretation: nsr hr [address] or t wave abnormalities qrs 85 qtc 422 EKG 2: I personally reviewed and interpreted this EKG as follows: EKG interpretation date: 12/13/23 EKG interpretation time: 15:45 Interpretation: nsr hr [address] elevation qrs 83 qtc 422 Discharge Plan Discharge Patient Disposition: Home Clinical Impression: Back pain Condition: Stable Prescriptions: No Action aspirin [Adult Low Dose Aspirin] 81 mg tablet,delayed release (DR/EC) 81 mg PO QAM pantoprazole 40 mg tablet,delayed release (DR/EC) 40 mg PO DAILY atorvastatin 40 mg tablet 40 mg PO QPM Levemir FlexTouch U100 Insulin 100 unit/mL (3 mL) insulin pen 90 unit SUBCUT BID clopidogrel 75 mg tablet 75 mg PO DAILY 90 Days Qty: 90 3RF metoprolol tartrate 50 mg tablet 50 mg PO BID Qty: 180 3RF (DME) Dexcom G7 Retail Field Supervisor Misc See Rx Instructions .Route Qty: 1 0RF Rx Instructions: As directed (DME) Dexcom G7 Sensor Device See Rx Instructions .Route Qty: 3 1RF Rx Instructions: As directed (DME) FreeStyle Regina 2 Sensor Kit See Rx Instructions .ROUTE .COMPLEX Qty: 6 0RF Dose Instruction: USE DIRECTED Rx Instructions: USE DIRECTED liraglutide [Victoza 2-Kg] 0.6 mg/0.1 mL (18 mg/3 mL) Pen Injector 1.8 mg SUBCUT DAILY naproxen sodium [Aleve] 220 mg tablet 220 mg PO Q12H PRN (Reason: Pain) polyethylene glycol 3350 [Miralax] 17 gram powder in packet 17 g PO DAILY PRN (Reason: constipation) Qty: 14 0RF potassium chloride [Klor-Con M20] 20 mEq tablet,ER particles/crystals 20 meq PO DAILY nitroglycerin 0.4 mg tablet, sublingual See Rx Instructions .ROUTE .COMPLEX Rx Instructions: DISSOLVE ONE TABLET UNDER THE TONGUE EVERY 5 MINUTES NEEDED FOR CHEST PAIN. DO NOT EXCEED A TOTAL OF 3 DOSES IN 15 MINUTES - REPORT TO THE EMERGENCY ROOM IF 3 DOSES ARE NEEDED TO CONTROL PAIN furosemide 40 mg tablet 40 mg PO DAILY carbidopa-levodopa 25-100 mg tablet See Rx Instructions .ROUTE .COMPLEX Qty: 30 4RF Rx Instructions: TAKE 1 TABLET BY MOUTH IN THE MORNING AND 1 TAB AT NOON AND 1 TAB AT 4 IN THE EVENING. cholecalciferol (vitamin D3) [Vitamin D3] 25 mcg (1,000 unit) Capsule 25 mcg PO DAILY Fish Oil 120-180 mg Capsule 1 cap PO DAILY tamsulosin 0.4 mg Capsule 0.4 mg PO DAILY Qty: 90 1RF finasteride 5 mg Tablet 5 mg PO DAILY Qty: 90 3RF insulin lispro 100 unit/mL insulin pen See Rx Instructions .ROUTE .COMPLEX Rx Instructions: TAKE 15 UNITS DAILY. IF BG OVER 200, TAKE 25 UNITS. isosorbide mononitrate 60 mg tablet extended release 24 hr 60 mg PO DAILY Qty: 30 0RF Discharge Orders: Discharge ED (Routine); Ordered 12/13/23 Ordered By: Abhishek Fowler Referrals: Roxana James FNP [Primary Care Provider] - 4-7 days Discharge Diet: Advance as tolerated Discharge Activity: Resume usual activity Patient Instructions: Back Pain (ED) Coding Level of Care Code ED Process Trainer for Hugo Garcia
[2023-12-13] MEDS: morphine 4 mg/mL SDV 1 mL IVP (14:09)
[2023-12-13 14:17] VITALS: PULSE 85; RESP 15; O2SAT 97
[2023-12-13 14:18] LABS: Basophils % 0.5 %; Eosinophils # 0.1 10^3/uL (0.0-0.8); Eosinophils % 1.9 %; Hematocrit 42.3 % (37-53); Lymphocytes % 16.5 %; Mean Corpuscular Hemoglobin 28.4 pg (27-33); Mean Corpuscular Volume 91.8 fl (82-101); Mean Platelet Volume 10.4 fL (7.4-10.4); Monocytes # 0.5 10^3/uL (0.2-0.9); Neutrophils % 72.8 %; Nucleated Red Blood Cells % 0 %; Platelet Count 199 10^3/cmm (157-399); Red Blood Count 4.61 10^6/uL (3.85-5.65); Red Cell Distribution Width 13.8 % (12.1-15.1); White Blood Count 5.77 10^3/uL (3.29-11.43)
[2023-12-13 14:19] VITALS: BP 150/78
[2023-12-13 14:35] LABS: Alanine Aminotransferase 23 U/L (0-41); Alkaline Phosphatase 110 U/L (40-130); Anion Gap 17.3 (5-19); Aspartate Amino Transferase 22 U/L (0-40); Blood Urea Nitrogen 17 mg/dL (8-23); Calcium 9.1 mg/dL (8.5-10.5); Carbon Dioxide 27 mmol/L (22-29); Chloride 102 mmol/L (98-107); Creatinine Clr Calc Pharmacy 64.5907; Globulin 2.7 g/dL (1.3-4.6); Glomerular Filtration Rate 60.2 mL/min (90-130); Glucose 178 mg/dL (65-115); Lipase 44 U/L (13-60); Osmolality Calculated 300 mOsm/kg (285-295); Potassium 4.3 mmol/L (3.5-5.1); Sodium 142 mmol/L (136-145); Total Bilirubin 0.4 mg/dL (0.15-1.2); Total Protein 6.7 g/dL (6.6-8.7); Troponin(5th) Baseline 24 ng/L (0-15)
--- NOTE | 2023-12-13 15:45 | ECG_ITS ---
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 Measurements Intervals [place] Rate: 79 P: 38 [place]: 215 QRS: -45 QRSD: 83 T: 67 QT: 387 QTc: 446 Interpretive Statements SINUS RHYTHM WITH FIRST DEGREE AV BLOCK LEFT AXIS DEVIATION [QRS AXIS < -30] PATTERN CONSISTENT WITH PULMONARY DISEASE SEPTAL MYOCARDIAL INFARCTION , OF INDETERMINATE AGE [40+ ms Q WAVE IN V1/V2] Compared to ECG 12/13/2023 13:48:07 First degree AV block now present Ventricular premature complex(es) no longer present Myocardial infarct finding still present Electronically Signed On 12-14-2023 11:14:06 CDT by Harvey Martins M.D. [id number]
[2023-12-13 16:26] LABS: Troponin 5 2HR 21.09 ng/L (0-15); Troponin 5 2HR Delta -2.91 ABS# (0-10)
[2023-12-13 17:20] VITALS: BP 180/110
== END 2023-12-13 17:22 | disposition home or self-care (01) ==
PROVIDERS: Emergency Provider Emergency Medicine; PCP Nurse Practitioner Family
DX: M54.50 Low back pain, unspecified (principal); Z79.82 Long term (current) use of aspirin; Z79.02 Long term (current) use of antithrombotics/antiplatelets; Z79.4 Long term (current) use of insulin; Z87.891 Personal history of nicotine dependence; E11.22 Type 2 diabetes mellitus with diabetic chronic kidney disease; I12.9 Hypertensive chronic kidney disease with stage 1 through stage 4 chronic kidney disease, or unspecified chronic kidney disease; N18.9 Chronic kidney disease, unspecified; E78.5 Hyperlipidemia, unspecified; I25.2 Old myocardial infarction
CPT/HCPCS: 36415; 71045; 80053; 83690; 84484; 85025; 93005; 96374; 99285; J2270

== ENCOUNTER 2023-12-30 11:32 | Outpatient (CLI) | payer MEDICARE, MEDICAID, SELFPAY ==
[2023-12-30 12:08] LABS: Basophils % 0.5 %; Eosinophils # 0.1 10^3/uL (0.0-0.8); Eosinophils % 1.8 %; Lymphocytes # 1.1 10^3/uL (0.8-4.8); Lymphocytes % 19.6 %; Mean Corpuscular HGB Conc 31.5 g/dL (30-55); Mean Corpuscular Hemoglobin 28.5 pg (27-33); Mean Corpuscular Volume 90.5 fl (82-101); Mean Platelet Volume 10.6 fL (7.4-10.4); Monocytes # 0.5 10^3/uL (0.2-0.9); Monocytes % 9.9 %; Neutrophils # 3.72 10^3/uL (1.8-7.7); Nucleated Red Blood Cells % 0 %; Platelet Count 210 10^3/cmm (157-399); Red Blood Count 4.31 10^6/uL (3.85-5.65); Red Cell Distribution Width 14.3 % (12.1-15.1); White Blood Count 5.47 10^3/uL (3.29-11.43)
[2023-12-30 12:26] LABS: Albumin Level 3.7 g/dL (3.5-5.2); Anion Gap 14.9 (5-19); Blood Urea Nitrogen 31 mg/dL (8-23); Carbon Dioxide 24 mmol/L (22-29); Chloride 105 mmol/L (98-107); Glomerular Filtration Rate 60.2 mL/min (90-130); Glucose 237 mg/dL (65-115); Phosphorus 3.7 mg/dL (2.5-4.5); Potassium 3.9 mmol/L (3.5-5.1); Sodium 140 mmol/L (136-145)
[2023-12-30 12:28] LABS: Creatinine Urine, Random 115 mg/dL (39-259)
[2023-12-30 12:32] LABS: Calcium 9.2 mg/dL (8.5-10.5)
[2023-12-30 12:39] LABS: Parathyroid Hormone 34.1 pg/mL (15-65)
[2023-12-30 12:41] LABS: Microalbum Creatinine Ratio Ur 435 mg/dL (0-20); Microalbumin Random Urine 50 ug/dL (0-20)
== END 2023-12-30 11:33 | disposition home or self-care (01) ==
LOC: LAB 11:37
PROVIDERS: PCP Nurse Practitioner Family; Visit Provider Registered Nurse
DX: E55.9 Vitamin D deficiency, unspecified (principal); N18.31 Chronic kidney disease, stage 3a
CPT/HCPCS: 36415; 80069; 82044; 82310; 82652; 83970; 85025

== ENCOUNTER → 2024-01-05 12:19 | Outpatient (BNVA) | payer MEDICARE, MEDICAID, SELFPAY | PROVIDERS: PCP Nurse Practitioner Family; Referring Provider Student in an Organized Health Care Education/Training Program; Visit Provider Psychiatry & Neurology Neurology | DX: G56.03 Carpal tunnel syndrome, bilateral upper limbs (principal); G56.23 Lesion of ulnar nerve, bilateral upper limbs; R29.898 Other symptoms and signs involving the musculoskeletal system; R20.0 Anesthesia of skin; G62.89 Other specified polyneuropathies | CPT/HCPCS: 95910; 95911 ==

== ENCOUNTER → 2024-01-19 15:02 | Outpatient (BNVA) | payer MEDICARE, MEDICAID, SELFPAY | PROVIDERS: PCP Nurse Practitioner Family; Visit Provider Student in an Organized Health Care Education/Training Program | DX: G56.03 Carpal tunnel syndrome, bilateral upper limbs (principal); G56.23 Lesion of ulnar nerve, bilateral upper limbs | CPT/HCPCS: 99214 ==

== ENCOUNTER → 2024-01-20 14:16 | Outpatient (BNVA) | payer MEDICARE, MEDICAID, SELFPAY | PROVIDERS: PCP Nurse Practitioner Family; Visit Provider Internal Medicine Cardiovascular Disease | DX: I25.10 Atherosclerotic heart disease of native coronary artery without angina pectoris (principal); E78.2 Mixed hyperlipidemia; G47.33 Obstructive sleep apnea (adult) (pediatric); Z87.891 Personal history of nicotine dependence; I12.9 Hypertensive chronic kidney disease with stage 1 through stage 4 chronic kidney disease, or unspecified chronic kidney disease; E11.22 Type 2 diabetes mellitus with diabetic chronic kidney disease; N18.9 Chronic kidney disease, unspecified; Z79.4 Long term (current) use of insulin | CPT/HCPCS: 99214 ==

== ENCOUNTER 2024-03-03 13:21 | Observation (INO) | payer MEDICARE, MEDICAID, SELFPAY ==
[2024-03-03] VITALS (10 sets, daily range): BP systolic 110–148; BP diastolic 61–91; PULSE 77–108; RESP 10–23; TEMP 36.4–36.6; O2SAT 97–100
--- NOTE | 2024-03-03 13:19 | XR_ITS ---
WS: [id number] Exam: XR chest 1V portable [id number] Date/Time of Exam: 03/03/2024 1:21 PM Reason For Exam: cp Comparison 12/13/2023. Lungs are clear and fully inflated. Normal cardiomediastinal silhouette. No pleural effusions. Unrema rkable bony structures. XR/XR chest 1V portable [id number] IMPRESSION: 1. No acute cardiopulmonary process.
--- NOTE | 2024-03-03 13:22 | ECG_ITS ---
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 Measurements Intervals [place] Rate: 75 P: 28 [place]: 212 QRS: -31 QRSD: 85 T: 90 QT: 387 QTc: 434 Interpretive Statements SINUS RHYTHM WITH FIRST DEGREE AV BLOCK WITH FREQUENT VENTRICULAR PREMATURE COMPLEXES LEFT AXIS DEVIATION [QRS AXIS < -30] ANTEROSEPTAL MYOCARDIAL INFARCTION , OF INDETERMINATE AGE [40+ ms Q WAVE IN V1-V4] Compared to ECG 12/13/2023 15:45:24 Ventricular premature complex(es) now present Myocardial infarct finding still present Electronically Signed On 03-05-2024 10:29:47 HIDE SELECTOR by Harvey Martins M.D. [id number]
--- NOTE | 2024-03-03 13:23 | ED_ITS ---
HPI - Chest Pain 2 General: Chief Complaint: Chest Pain Stated Complaint: CHEST PAIN Source: patient and EMS Mode of arrival: EMS Limitations: no limitations History of Present Illness: 60-year-old male has a history of james ry artery disease states started having some chest pain last night took a nitro and improved states he woke up started having pain again he states it was a 10 out of 10 pain in the center of his chest he did receive nitro with EMS along with aspirin and has a Nitropaste states the pain is down now to 1 out of 10. He denies any shortness of breath denies any fever denies any vomiting Associated symptoms: Deny abdominal pain, dyspnea, fever(s), nausea or vomiting Related Data Home Medications Medication Instructions Recorded Confirmed aspirin 81 mg tablet,delayed 81 mg PO QAM 05/10/19 03/01/24 release (Adult Low Dose Aspirin) pantoprazole 40 mg tablet,delayed 40 mg PO DAILY 05/10/19 03/01/24 release liraglutide 0.6 mg/0.1 mL (18 mg/3 1.8 mg SUBCUT DAILY 07/20/19 03/01/24 mL) subcutaneous pen injector (Victoza 2-Kg) naproxen sodium 220 mg tablet 220 mg PO Q12H PRN Pain 04/29/22 03/01/24 (Aleve) cholecalciferol (vitamin D3) 25 25 mcg PO DAILY 10/10/22 03/01/24 mcg (1,000 unit) capsule (Vitamin D3) docosahexaenoic acid (dha)-epa 120 1 cap PO DAILY 10/10/22 03/01/24 mg-180 mg capsule (Fish Oil) atorvastatin 40 mg tablet 40 mg PO QPM 10/16/22 03/01/24 insulin detemir U-100 100 unit/mL 90 unit SUBCUT BID 01/21/23 03/01/24 (3 mL) subcutaneous pen (Levemir FlexTouch U-100 Insulin) insulin lispro 100 unit/mL See Rx Instructions .Route .COMPLEX 06/16/23 03/01/24 subcutaneous pen nitroglycerin 0.4 mg sublingual See Rx Instructions .Route .COMPLEX 07/27/23 03/01/24 tablet potassium chloride 20 mEq 20 meq PO DAILY 07/27/23 03/01/24 tablet,extended release(part/cryst) (Klor-Con M) furosemide 40 mg tablet 40 mg PO DAILY 11/16/23 03/01/24 carbidopa 25 mg-levodopa 100 mg 1 tab PO QID 03/01/24 03/01/24 tablet Previous Rx's Medication Instructions Recorded clopidogrel 75 mg tablet 75 mg PO DAILY 3 months #90 tabs 11/10/19 metoprolol tartrate 50 mg tablet 50 mg PO BID #180 tabs 11/10/19 finasteride 5 mg tablet 5 mg PO DAILY #90 tabs 10/11/22 tamsulosin 0.4 mg capsule 0.4 mg PO DAILY #90 caps 10/11/22 polyethylene glycol 3350 17 gram 17 g PO DAILY PRN constipation #14 11/04/22 oral powder packet (Miralax) ea isosorbide mononitrate 60 mg 60 mg PO DAILY #30 tabs 06/16/23 tablet,extended release 24 hr flash glucose sensor (FreeStyle #6 ea 01/27/24 Regina 2 Sensor kit) flash glucose scanning reader #1 ea 02/02/24 (FreeStyle Regina 2 [place]) flash glucose sensor (FreeStyle #6 ea 02/02/24 Regina 2 Sensor kit) hydrocodone 5 mg-acetaminophen 325 1 tab PO Q6H PRN pain 5 days #20 03/02/24 mg tablet tabs Allergies Allergy/AdvReac Type Severity Reaction Status Date / Time No Known Allergies Allergy Verified 03/03/24 13:30 Review of Systems 2 Const: Denies: fever(s), chills, body aches or change in appetite ENMT: Denies: throat pain or dental pain Card: Reports: chest pain Resp: Denies: dyspnea GI: Denies: abdominal pain, nausea, vomiting or diarrhea Musc: Denies: neck pain or back pain Skin/Breast: Denies: rash Neuro: Denies: headache(s) PFSH ED 2 PFSH: Medical History CÉSAR (obstructive sleep apnea) Hyperlipidemia HTN (hypertension) ASHD (arteriosclerotic heart disease) Diabetes Hyperglycemia JULIET (acute kidney injury) Elbow contusion Dystonic tremor Acute on chronic renal failure Urinary tract infection Urinary retention Acute renal failure Ophthalmoplegia Parkinson disease Diabetic neuropathy associated with type 2 diabetes mellitus Essential tremor Cough Exposure to COVID-19 virus Chronic diarrhea Diabetic foot ulcer CKD (chronic kidney disease) (~10/12/20) Obesity Myocardial infarction Surgical History S/P eye surgery Status post colonoscopy (12/24/20) sigmoid polyp Status post amputation of toe S/P angioplasty with stent Family History Mother CAD (coronary artery disease) Diabetes Social History Smoking and tobacco/nicotine status: former use of tobacco/nicotine Alcohol intake: former Substance/Drug Use: never Lives independently: Yes Household members: other Details: DOG Marital status: service: No Current occupational status: disabled 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 Physical Exam 2 Const: COMMON NORMALS: patient oriented x3 HENMT: COMMON NORMALS: normocephalic and atraumatic HEAD & SCALP: n ormocephalic and atraumatic Eye: COMMON NORMALS: Equal, round and reactive pupils present and EOMs intact bilaterally PUPIL: Yes Equal, round and reactive pupils present Neck/C-Spine: COMMON NORMALS: full ROM and supple Chest: COMMONS NORMALS: normal inspection of the chest and normal palpation of entire chest wall Resp: COMMON NORMALS: normal respiratory effort, No retractions, No use of accessory muscles and clear to auscultation bilaterally AUSCULTATION: clear to auscultation bilaterally Cardio: COMMON NORMALS: regular rate, regular rhythm and No murmurs present (Cardio) RATE: regular rate RHYTHM: regular rhythm GI: COMMON NORMALS: Normal to inspection, nondistended, normoactive bowel sounds present, Soft to palpation, non-tender and no masses PALPATION: Yes Soft to palpation Extremity: COMMON NORMALS: normal to inspection and full ROM Neuro: COMMON NORMALS: patient oriented x3, moves all extremities and no focal motor deficits Psych: COMMON NORMALS: mental status grossly normal, Normal thought process present and cooperative THOUGHT PROCESS: Normal thought process present Skin: COMMON NORMALS: no rashes or lesions noted and no wounds GENERAL SKIN EXAM: no rashes or lesions noted Course 2 Vital Signs: Vital signs: Vital Signs Temperature 97.8 F 03/03/24 13:26 Pulse Rate 78 03/03/24 13:39 Blood Pressure 121/84 03/03/24 13:39 Pulse Oximetry 100 03/03/24 13:26 Oxygen Delivery Me thod Room Air 03/03/24 13:26 MDM - Chest Pain Medical Decision Making Patient presents here with chest pain initial troponins at his baseline he does have a history of ACS spoke to the hospitalist will admit at this time for ACS rule out. He has no signs of PE or dissection Medical Records I reviewed the patient's medical records. Lab Data I reviewed the patient's lab results. 03/03/24 12:42 03/03/24 12:42 Radiology Impressions Chest X-Ray 03/03/24 13:19 IMPRESSION: 1. No acute cardiopulmonary process. Laboratory Results WBC 6.54 10^3/uL (3.29-11.43) 03/03/24 12:42 RBC 4.40 10^6/uL (3.85-5.65) 03/03/24 12:42 Hgb 12.60 g/dL (11.27-16.99) 03/03/24 12:42 Hct 39.2 % (37-53) 03/03/24 12:42 MCV 89.1 fl (82-101) 03/03/24 12:42 MCH 28.6 pg (27-33) 03/03/24 12:42 MCHC 32.1 g/dL (30-55) 03/03/24 12:42 RDW 14.1 % (12.1-15.1) 03/03/24 12:42 Plt Count 188 10^3/cmm (157-399) 03/03/24 12:42 MPV 11.2 fL (7.4-10.4) H 03/03/24 12:42 Neut % (Auto) 71.2 % 03/03/24 12:42 Lymph % (Auto) 19.1 % 03/03/24 12:42 [place] % (Auto) 6.9 % 03/03/24 12:42 Eos % (Auto) 1.7 % 03/03/24 12:42 Baso % (Auto) 0.8 % 03/03/24 12:42 Neut # (Auto) 4.66 10^3/uL (1.8-7.7) 03/03/24 12:42 Lymph # (Auto) 1.3 10^3/uL (0.8-4.8) 03/03/24 12:42 [place] # (Auto) 0.5 10^3/uL (0.2-0.9) 03/03/24 12:42 Eos # (Auto) 0.1 10^3/uL (0.0-0.8) 03/03/24 12:42 Baso # (Auto) 0.1 10^3/uL (0.0-0.1) 03/03/24 12:42 Nucleated RBC % (auto) 0 % 03/03/24 12:42 Nucleated RBCs # 0.0 /100WBC 03/03/24 12:42 PT 13.00 SECONDS (12.1-14.9) 03/03/24 12:42 INR 0.96 (0.8-1.2) 03/03/24 12:42 Sodium 138 mmol/L (136-145) 03/03/24 12:42 Potassium 4.7 mmol/L (3.5-5.1) 03/03/24 12:42 Chloride 103 mmol/L (98-107) 03/03/24 12:42 Carbon Dioxide 25 mmol/L (22-29) 03/03/24 12:42 Anion Gap 14.7 (5-19) 03/03/24 12:42 BUN 34 mg/dL (8-23) H 03/03/24 12:42 Creatinine 1.6 mg/dL (0.7-1.2) H 03/03/24 12:42 GFR Calculation 43.2 mL/min (90-130) L 03/03/24 12:42 Glucose 213 mg/dL (65-115) H 03/03/24 12:42 Calculated Osmolality 300 mOsm/kg (285-295) H 03/03/24 12:42 Calcium 8.8 mg/dL (8.5-10.5) 03/03/24 12:42 Total Bilirubin 0.6 mg/dL (0.15-1.2) 03/03/24 12:42 AST 19 U/L (0-40) 03/03/24 12:42 ALT < 5 U/L (0-41) 03/03/24 12:42 Alkaline Phosphatase 84 U/L (40-130) 03/03/24 12:42 Troponin T Baseline 27 ng/L (0-15) H 03/03/24 12:42 Total Protein 6.6 g/dL (6.6-8.7) 03/03/24 12:42 Albumin 4.1 g/dL (3.5-5.2) 03/03/24 12:42 Globulin 2.5 g/dL (1.3-4.6) 03/03/24 12:42 Lipase 45 U/L (13-60) 03/03/24 12:42 All radiology interpretation(s) finalized by discharge Discharge Plan Discharge Patient Disposition: Placed in Observation Clinical Impression: Chest pain Condition: Stable Prescriptions: No Action aspirin [Adult Low Dose Aspirin] 81 mg tablet,delayed release (DR/EC) 81 mg PO QAM pantoprazole 40 mg tablet,delayed release (DR/EC) 40 mg PO DAILY atorvastatin 40 mg tablet 40 mg PO QPM Levemir FlexTouch U100 Insulin 100 unit/mL (3 mL) insulin pen 90 unit SUBCUT BID clopidogrel 75 mg tablet 75 mg PO DAILY 90 Days Qty: 90 3RF metoprolol tartrate 50 mg tablet 50 mg PO BID Qty: 180 3RF (DME) FreeStyle Regina 2 Sensor Kit See Rx Instructions .ROUTE .COMPLEX Qty: 6 2RF Dose Instruction: USE DIRECTED Rx Instructions: USE DIRECTED (DME) FreeStyle Regina 2 Sensor Kit See Rx Instructions .Route Qty: 6 0RF Rx Instructions: change sensor every 14 days (DME) FreeStyle Regina 2 [place] Misc See Rx Instructions .ROUTE Qty: 1 0RF Rx Instructions: As directed liraglutide [Victoza 2-Kg] 0.6 mg/0.1 mL (18 mg/3 mL) Pen Injector 1.8 mg SUBCUT DAILY naproxen sodium [Aleve] 220 mg tablet 220 mg PO Q12H PRN (Reason: Pain) polyethylene glycol 3350 [Miralax] 17 gram powder in packet 17 g PO DAILY PRN (Reason: constipation) Qty: 14 0RF potassium chloride [Klor-Con M20] 20 mEq tablet,ER particles/crystals 20 meq PO DAILY nitroglycerin 0.4 mg tablet, sublingual See Rx Instructions .ROUTE .COMPLEX Rx Instructions: DISSOLVE ONE TABLET UNDER THE TONGUE EVERY 5 MINUTES NEEDED FOR CHEST PAIN. DO NOT EXCEED A TOTAL OF 3 DOSES IN 15 MINUTES - REPORT TO THE EMERGENCY ROOM IF 3 DOSES ARE NEEDED TO CONTROL PAIN furosemide 40 mg tablet 40 mg PO DAILY cholecalciferol (vitamin D3) [Vitamin D3] 25 mcg (1,000 unit) Capsule 25 mcg PO DAILY Fish Oil 120-180 mg Capsule 1 cap PO DAILY tamsulosin 0.4 mg Capsule 0.4 mg PO DAILY Qty: 90 1RF finasteride 5 mg Tablet 5 mg PO DAILY Qty: 90 3RF insulin lispro 100 unit/mL insulin pen See Rx Instructions .ROUTE .COMPLEX Rx Instructions: TAKE 15 UNITS DAILY. IF BG OVER 200, TAKE 25 UNITS. isosorbide mononitrate 60 mg tablet extended release 24 hr 60 mg PO DAILY Qty: 30 0RF carbidopa-levodopa 25-100 mg tablet 1 tab PO QID Rx Instructions: TAKE 1 TABLET BY MOUTH IN THE MORNING AND 1 TAB AT NOON AND 1 TAB AT 4 IN THE EVENING. hydrocodone-acetaminophen 5-325 mg tablet 1 tab PO Q6H PRN (Reason: pain) 5 Days Qty: 20 0RF Referrals: Roxana James FNP [Primary Care Provider] - Coding Level of Care Code ED Shoe Stainer for Hugo Garcia
[2024-03-03 13:35] LABS: Basophils # 0.1 10^3/uL (0.0-0.1); Basophils % 0.8 %; Eosinophils # 0.1 10^3/uL (0.0-0.8); Eosinophils % 1.7 %; Hematocrit 39.2 % (37-53); Lymphocytes # 1.3 10^3/uL (0.8-4.8); Lymphocytes % 19.1 %; Mean Corpuscular HGB Conc 32.1 g/dL (30-55); Mean Corpuscular Hemoglobin 28.6 pg (27-33); Mean Corpuscular Volume 89.1 fl (82-101); Mean Platelet Volume 11.2 fL (7.4-10.4); Monocytes # 0.5 10^3/uL (0.2-0.9); Monocytes % 6.9 %; Neutrophils # 4.66 10^3/uL (1.8-7.7); Neutrophils % 71.2 %; Nucleated Red Blood Cells % 0 %; Platelet Count 188 10^3/cmm (157-399); Red Cell Distribution Width 14.1 % (12.1-15.1); White Blood Count 6.54 10^3/uL (3.29-11.43)
[2024-03-03 13:53] LABS: INR 0.96 (0.8-1.2)
[2024-03-03 13:57] LABS: Alanine Aminotransferase < 5 U/L (0-41); Albumin Level 4.1 g/dL (3.5-5.2); Alkaline Phosphatase 84 U/L (40-130); Anion Gap 14.7 (5-19); Aspartate Amino Transferase 19 U/L (0-40); Blood Urea Nitrogen 34 mg/dL (8-23); Calcium 8.8 mg/dL (8.5-10.5); Carbon Dioxide 25 mmol/L (22-29); Chloride 103 mmol/L (98-107); Creatinine Clr Calc Pharmacy 51.3913; Globulin 2.5 g/dL (1.3-4.6); Glomerular Filtration Rate 43.2 mL/min (90-130); Glucose 213 mg/dL (65-115); Lipase 45 U/L (13-60); Osmolality Calculated 300 mOsm/kg (285-295); Potassium 4.7 mmol/L (3.5-5.1); Sodium 138 mmol/L (136-145); Total Bilirubin 0.6 mg/dL (0.15-1.2); Total Protein 6.6 g/dL (6.6-8.7)
[2024-03-03 13:58] LABS: Troponin(5th) Baseline 27 ng/L (0-15)
[2024-03-03 14:57] LABS: Troponin 5 2HR 23.07 ng/L (0-15); Troponin 5 2HR Delta -3.93 ABS# (0-10)
--- NOTE | 2024-03-03 15:20 | P.HP_ITS ---
Providers/Chief Complaint 2 Admitting Physician: Aakash Faria Primary Care Provider: CHRIS Summers Chief Complaint: CHEST PAIN History of Present Illness Pleasant 68-year-old gentleman with history of CAD, 6 prior stents, DM2, HTN, former smoker, CKD, Parkinson's disease, CÉSAR, other medical problems presented due to bothersome chest pain radiating to the upper back reminding him of similar pain he had during last time he was having an issue with his heart and required stents. He denies other associated symptoms. He does get somewhat dyspneic with exertion. He had a stress test in June which showed medium sized area of prior infarct in LAD territory. LV systolic function 41%. Review of Systems 2 Const: Denies: fever(s), chills, body aches or malaise ENMT: Denies: throat pain Card: Reports: chest pain; Denies: edema, pre-syncope or dyspnea on exertion Resp: Denies: dyspnea, productive cough, change in phlegm color or hemoptysis GI: Denies: abdominal pain, nausea, vomiting, diarrhea, constipation, hematochezia or melena : Denies: flank pain, difficulty urinating, urinary frequency or hematuria Musc: Reports: back pain (Upper back pain); Denies: joint swelling or joint redness Skin/Breast: Denies: rash or new lesions Neuro: Denies: headache(s) or confusion Medications/Allergies Home Medications Medication Instructions Recorded Confirmed Last Taken Type aspirin 81 mg tablet,delayed 81 mg PO QAM 05/10/19 03/03/24 03/03/24 History release (Adult Low Dose Aspirin) pantoprazole 40 mg tablet,delayed 40 mg PO DAILY 05/10/19 03/03/24 03/03/24 History release liraglutide 0.6 mg/0.1 mL (18 mg/3 1.8 mg SUBCUT DAILY 07/20/19 03/03/24 03/02/24 History mL) subcutaneous pen injector (Victoza 2-Kg) clopidogrel 75 mg tablet 75 mg PO DAILY 3 months #90 tabs 11/10/19 03/03/24 03/03/24 Rx metoprolol tartrate 50 mg tablet 50 mg PO BID #180 tabs 11/10/19 03/03/24 03/03/24 Rx naproxen sodium 220 mg tablet 220 mg PO Q12H PRN Pain 04/29/22 03/03/24 03/03/24 History (Aleve) cholecalciferol (vitamin D3) 25 25 mcg PO DAILY 10/10/22 03/03/24 03/03/24 History mcg (1,000 unit) capsule (Vitamin D3) docosahexaenoic acid (dha)-epa 120 1 cap PO DAILY 10/10/22 03/03/24 03/03/24 History mg-180 mg capsule (Fish Oil) finasteride 5 mg tablet 5 mg PO DAILY #90 tabs 10/11/22 03/03/24 03/03/24 Rx tamsulosin 0.4 mg capsule 0.4 mg PO DAILY #90 caps 10/11/22 03/03/24 03/03/24 Rx atorvastatin 40 mg tablet 40 mg PO QPM 10/16/22 03/03/24 03/02/24 History insulin detemir U-100 100 unit/mL 90 unit SUBCUT BID 01/21/23 03/03/24 03/03/24 History (3 mL) subcutaneous pen (Levemir FlexTouch U-100 Insulin) insulin lispro 100 unit/mL See Rx Instructions .Route .COMPLEX 06/16/23 03/03/24 03/03/24 History subcutaneous pen isosorbide mononitrate 60 mg 60 mg PO DAILY #30 tabs 06/16/23 03/03/24 03/03/24 Rx tablet,extended release 24 hr nitroglycerin 0.4 mg sublingual See Rx Instructions .Route .COMPLEX 07/27/23 03/03/24 03/02/24 History tablet potassium chloride 20 mEq 20 meq PO DAILY 07/27/23 03/03/24 03/03/24 History tablet,extended release(part/cryst) (Klor-Con M) furosemide 40 mg tablet 40 mg PO DAILY 11/16/23 03/03/24 03/03/24 History flash glucose sensor (FreeStyle #6 ea 01/27/24 03/03/24 Unknown Rx Regina 2 Sensor kit) flash glucose scanning reader #1 ea 02/02/24 03/03/24 Unknown Rx (FreeStyle Regina 2 [place]) flash glucose sensor (FreeStyle #6 ea 02/02/24 03/03/24 Unknown Rx Regina 2 Sensor kit) carbidopa 25 mg-levodopa 100 mg 1 tab PO QID 03/01/24 03/03/24 03/03/24 History tablet hydrocodone 5 mg-acetaminophen 325 1 tab PO Q6H PRN pain 5 days #20 03/02/24 03/03/24 03/03/24 Rx mg tablet tabs Allergies Allergy/AdvReac Type Severity Reaction Status Date / Time No Known Allergies Allergy Verified 03/03/24 13:30 PFSH Acute 2 PFSH: Medical History CÉSAR (obstructive sleep apnea) Hyperlipidemia HTN (hypertension) ASHD (arteriosclerotic heart disease) Diabetes Hyperglycemia JULIET (acute kidney injury) Elbow contusion Dystonic tremor Acute on chronic renal failure Urinary tract infection Urinary retention Acute renal failure Ophthalmoplegia Parkinson disease Diabetic neuropathy associated with type 2 diabetes mellitus Essential tremor Cough Exposure to COVID-19 virus Chronic diarrhea Diabetic foot ulcer CKD (chronic kidney disease) (~10/12/20) Obesity Myocardial infarction Surgical History S/P eye surgery Status post colonoscopy (12/24/20) sigmoid polyp Status post amputation of toe S/P angioplasty with stent Family History Mother CAD (coronary artery disease) Diabetes Social History Smoking and tobacco/nicotine status: former use of tobacco/nicotine Alcohol intake: former Substance/Drug Use: never Lives independently: Yes Household members: other Details: DOG Marital status: service: No Current occupational status: disabled Previous occupational history: [employer] Vitals/I&O/Wt Last Vital Signs Temp 97.8 F 03/03/24 13:26 Pulse 88 03/03/24 15:05 BP 110/71 03/03/24 15:05 Pulse Ox 98 03/03/24 15:05 O2 Del Method Room Air 03/03/24 14:32 Weight last 48 hrs Weight 102.965 kg Physical Exam 2 Const: COMMON NORMALS: patient oriented x3 and alert GENERAL APPEARANCE: c ooperative NUTRITIONAL APPEARANCE: overweight ORIENTATION/CONSCIOUSNESS: Y es awake HENMT: COMMON NORMALS: oropharynx normal Neck/C-Spine: COMMON NORMALS: no JVD Resp: COMMON NORMALS: normal respiratory effort and clear to auscultation bilaterally AUSCULTATION: clear to auscultation bilaterally Cardio: COMMON NORMALS: no JVD, regular rhythm, S1 normal heart sound present, S2 normal heart sound present and No murmurs present (Cardio) RHYTHM: regular rhythm HEART SOUNDS: S1 normal heart sound present and S2 normal heart sound present GI: COMMON NORMALS: Normal to inspection, nondistended, normoactive bowel sounds present, Soft to palpation and non-tender PALPATION: Yes Soft to palpation Extremity: COMMON NORMALS: no joint enlargement and no pedal edema N ARRATIVE EXTREMITY EXAM: R shoulder without swelling, erythema, no PROM pain. Neuro: COMMON NORMALS: patient oriented x3 and moves all extremities S ENSORIUM/ORIENTATION: Yes alert Skin: COMMON NORMALS: no rashes or lesions noted GENERAL SKIN EXAM: no rashes or lesions noted Data 03/03/24 12:42 03/03/24 12:42 A&P Assessment and plan (1) Chest pain: Assess for possible unstable angina. He states he does not normally get chest pain with his cardiac events, pain normally radiates to his upper back, and that is what he is feeling currently. Reviewed vitals, CBC, INR, CMP, troponin noted with mild elevation. Reviewed EKG, on my interpretation sinus rhythm, frequent PVC, Q waves in V2, I do not see Q waves in V3 and 4. Pending official read. Reviewed ER provider documentation, discussed with ER provider. Will give aspirin 325 mg, continue Plavix, beta-cortez, statin. Complete troponin EKG series. Monitor on telemetry with risk of arrhythmia. 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 SL nitroglycerin as needed. IV morphine as needed. He had a normal stress test in June of this year with area of prior MD although no ischemia at that time. Appreciate cardiology consultation with regards to recommendations for further risk stratification given his underlying history, risk factors and presentation. (2) PVC (premature ventricular contraction): Noted frequent PVC on EKG, monitor, intermittent runs of bigeminy. Complete workup for possible ischemia as above. Reviewed chemistry, potassium is okay. Check magnesium. Continue metoprolol. (3) ASHD (arteriosclerotic heart disease): Reports prior stents x 6. Continue aspirin, statin, beta-cortez. He is a former smoker. Continue insulin. Check A1c. Poorly controlled diabetes previously, A1c 14.8 back in November. Reassess. Plan JULIET on CKD, creatinine 1.6. Does seem to have naproxen listed as needed. Would avoid NSAIDs. 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 Lantus. Sliding scale insulin. HTN: Monitor blood pressures. Continue Imdur, metoprolol. HLD: Continue statin Parkinson's disease, continue Sinemet CÉSAR, has been untreated. Other medical problems Attestations 2 Medical Necessity Statement*: Place in observation for additional assessment and management of episode of chest pain and gentleman with CAD, prior stents x 6. and High MDM includes amount and/or complexity of data reviewed/ordered [ previous or external records, resulted lab(s)/test(s), ordered lab(s)/test(s), independent test interpretation and other healthcare professional discussion] as documented Diagnoses Chest pain R07.9 PVC (premature ventricular contraction) I49.3 ASHD (arteriosclerotic heart disease) I25.10
--- NOTE | 2024-03-03 15:47 | P.CONIM_ITS ---
<Statement entered by Harvey Martins M.D - 03/04/24 14:08> Patient was evaluated and cared for in conjunction with an advanced practice practitioner.? I personally examined the patient and reviewed the chart and all pertinent data including imaging, telemetry, and laboratory results.? I discussed the patient in detail with the advanced practice practitioner.? Please see? their note for complete H&P, testing results and agreed upon plan of care for the patient. Briefly patient has been having shoulder discomfort radiating to back and neck. Feels like these symptoms are similar to episodes when he required stents. Symptoms are worsening. Improved with nitros. GENERAL: Patient is alert, awake and oriented x3. HEART: Regular S1 and S2 LUNGS: Clear to auscultate bilaterally. CENTRAL NERVOUS SYSTEM: Grossly nonfocal. EXTREMITIES: Lower extremities with out edema bilaterally. Assessment and Plan Worsening angina Patient has presented with worsening angina with symptoms related to prior episodes requiring stenting. We will proceed with coronary angiogram with possible PCI. N.p.o. past midnight. Risks and benefits of the procedure have been discussed with patient. He understands these and wants to proceed Thanks for involving us with care of this patient. We will continue to follow. please call with questions. Documented by User: Maru Keys NP 03/03/24 16:14 Providers/Reason For Consult 2 Consulting Physician/Specialty*: Dr. Martins Reason for Consult*: atypical chest pain Requesting Physician: Dr. Fowler Attending Physician: Dr. Faria Primary Care Provider: CHRIS Summers History of Present Illness History of Present Illness Yaya Astudillo is a very pleasant 68 year old male who came into the ER today due to unrelenting severe right shoulder pain that radiated to his neck and his back. He states this has been going on for the last couple of weeks but has worsened in severity. He cannot attribute it to activity. He states he is not real active at home. He states that they gave him nitro and route which relieved the pain. Since he has gotten to the hospital he has had no issues with this. The patient has a history of several coronary artery stents. He states he has a history of 6 stents with most recent being in 2017. He does have a history of multiple stents in the LAD for instent restenosis. LAD was small at that time. Hx of stenting to the circumflex, rca with mild stenosis at that time. He states he is compliant with dual antiplatelet therapy including aspirin and Plavix. He has a history of hyperlipidemia hypertension coronary artery disease, diabetes, and obstructive sleep apnea, systolic heart failure with EF around 41%. Currently patient is chest pain-free. He has bigeminal PVCs. EKG showed no acute ST elevation or T wave abnormalities. Q waves in V1 through V4 unchanged from previously. Review of Systems 2 Narrative: Consitutional: denies fever, chills, body aches, or changes in appetite, denies abnormal weight loss Eyes: Denies changes in vision Card: Denies chest pain, palpitations, irregular heart rhythm, edema, syncope, shortness of breath, orthopnea, leg pain with exertion Resp: Denies shortness of breath, denies hemoptysis, denies cough GI: denies abdominal pain, denies nausea or vomiting Musc: Denies extremity pain, denies limited range of motion or recent injury Skin: Denies rash, lesions, or wounds, denies changes to skin color Neuro: Denies nubmness in extremities, h/a, s/s of stroke Enrrique: Denies easy bruiding/bleeding All: Denies s/s of allergies Medications/Allergies Home Medications Medication Instructions Recorded Confirmed Last Taken Type aspirin 81 mg tablet,delayed 81 mg PO QAM 05/10/19 03/03/24 03/03/24 History release (Adult Low Dose Aspirin) pantoprazole 40 mg tablet,delayed 40 mg PO DAILY 05/10/19 03/03/24 03/03/24 History release liraglutide 0.6 mg/0.1 mL (18 mg/3 1.8 mg SUBCUT DAILY 07/20/19 03/03/24 03/02/24 History mL) subcutaneous pen injector (Victoza 2-Kg) clopidogrel 75 mg tablet 75 mg PO DAILY 3 months #90 tabs 11/10/19 03/03/24 03/03/24 Rx metoprolol tartrate 50 mg tablet 50 mg PO BID #180 tabs 11/10/19 03/03/24 03/03/24 Rx naproxen sodium 220 mg tablet 220 mg PO Q12H PRN Pain 04/29/22 03/03/24 03/03/24 History (Aleve) cholecalciferol (vitamin D3) 25 25 mcg PO DAILY 10/10/22 03/03/24 03/03/24 History mcg (1,000 unit) capsule (Vitamin D3) docosahexaenoic acid (dha)-epa 120 1 cap PO DAILY 10/10/22 03/03/24 03/03/24 History mg-180 mg capsule (Fish Oil) finasteride 5 mg tablet 5 mg PO DAILY #90 tabs 10/11/22 03/03/24 03/03/24 Rx tamsulosin 0.4 mg capsule 0.4 mg PO DAILY #90 caps 10/11/22 03/03/24 03/03/24 Rx atorvastatin 40 mg tablet 40 mg PO QPM 10/16/22 03/03/24 03/02/24 History insulin detemir U-100 100 unit/mL 90 unit SUBCUT BID 01/21/23 03/03/24 03/03/24 History (3 mL) subcutaneous pen (Levemir FlexTouch U-100 Insulin) insulin lispro 100 unit/mL See Rx Instructions .Route .COMPLEX 06/16/23 03/03/24 03/03/24 History subcutaneous pen isosorbide mononitrate 60 mg 60 mg PO DAILY #30 tabs 06/16/23 03/03/24 03/03/24 Rx tablet,extended release 24 hr nitroglycerin 0.4 mg sublingual See Rx Instructions .Route .COMPLEX 07/27/23 03/03/24 03/02/24 History tablet potassium chloride 20 mEq 20 meq PO DAILY 07/27/23 03/03/24 03/03/24 History tablet,extended release(part/cryst) (Klor-Con M) furosemide 40 mg tablet 40 mg PO DAILY 11/16/23 03/03/24 03/03/24 History flash glucose sensor (FreeStyle #6 ea 01/27/24 03/03/24 Unknown Rx Regina 2 Sensor kit) flash glucose scanning reader #1 ea 02/02/24 03/03/24 Unknown Rx (FreeStyle Regina 2 Calypso) flash glucose sensor (FreeStyle #6 ea 02/02/24 03/03/24 Unknown Rx Regina 2 Sensor kit) carbidopa 25 mg-levodopa 100 mg 1 tab PO QID 03/01/24 03/03/24 03/03/24 History tablet hydrocodone 5 mg-acetaminophen 325 1 tab PO Q6H PRN pain 5 days #20 03/02/24 03/03/24 03/03/24 Rx mg tablet tabs Allergies Allergy/AdvReac Type Severity Reaction Status Date / Time No Known Allergies Allergy Verified 03/03/24 13:30 PFSH Acute 2 PFSH: Medical History CÉSAR (obstructive sleep apnea) Hyperlipidemia HTN (hypertension) ASHD (arteriosclerotic heart disease) Diabetes Hyperglycemia JULIET (acute kidney injury) Elbow contusion Dystonic tremor Acute on chronic renal failure Urinary tract infection Urinary retention Acute renal failure Ophthalmoplegia Parkinson disease Diabetic neuropathy associated with type 2 diabetes mellitus Essential tremor Cough Exposure to COVID-19 virus Chronic diarrhea Diabetic foot ulcer CKD (chronic kidney disease) (~10/12/20) Obesity Myocardial infarction Surgical History S/P eye surgery Status post colonoscopy (12/24/20) sigmoid polyp Status post amputation of toe S/P angioplasty with stent Family History Mother CAD (coronary artery disease) Diabetes Social History Smoking and tobacco/nicotine status: former use of tobacco/nicotine Alcohol intake: former Substance/Drug Use: never Lives independently: Yes Household members: other Details: DOG Marital status: service: No Current occupational status: disabled 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 Vitals/I&O/Wt Last Vital Signs Temp 97.8 F 03/03/24 13:26 Pulse 88 03/03/24 15:05 BP 110/71 03/03/24 15:05 Pulse Ox 98 03/03/24 15:05 O2 Del Method Room Air 03/03/24 15:10 Weight last 48 hrs Weight 217 lb 11.2 oz Weight 227 lb Physical Exam 2 Narrative: General: No apparent distress, healthy appearing, well nourished Neck: No carotid bruit bilaterally Muskuloskeletal: Full ROM Lymphatic: no lymphedema noted Respiratory: Normal respiratory effort, clear to auscultation bilaterally throughout all lung lambert, no use of accessory muscles Cardio: No JVD, regular rate, regular rhythm, S1 S2 normal, no murmurs, peripheral pulses 2+ right radial, 1+ left radial GI: Normal to inspection, nondistended Extremities: Full ROM, normal, normal capillary refill, no cyanosis or edema Neuro: Alert and oriented x4, no focal motor deficits Psych: Affect normal, denies suicidal ideation, mental status grossly normal Skin: No rashes or lesions noted, no wounds Data 03/04/24 04:30 03/04/24 04:30 Other data: 2016 left heart cath There is a new stenosis in the proximal LAD just proximal to the previously placed stents and just at the takeoff of the first diagonal which contains an 85-90% stenosis. The diagonal branch which emanates from this area is also about 70 or 80% stenosed. Lesion on Prox LAD: Mid subsection.85% stenosis 7 mm length reduced to 10%. Pre procedure MARYANA III flow was noted. Post Procedure MARYANA III flow was present. The guidewire cross was successful.Good runoff was present.The lesion was diagnosed as a low risk lesion.The lesion was diffuse, eccentric and lightly calcified.The lesion showed with irregular contour and mild angulation.Culprit lesion.Bifurcation lesion. LCx: Diffuse irregularity.There is mild diffuse disease. All the previous stents are patent. The areas of previous angioplasty in July are widely patent. The diagonal branch, also previously angioplastied is patent. RCA: Diffuse irregularity.Mild diffuse disease A&P Assessment and plan (1) Chest pain: Although patient is having atypical chest pain this is very similar to the pain he has had in the past with acute coronary ischemia. He has had multiple previous interventions for in-stent stenosis. Troponin positive but trending down. 27-23. At this time it is our recommendation to move forward with left heart cath possible PCI to rule out possible acute coronary syndrome caused by in-stent restenosis of prior stents or progression of previous coronary artery disease. Qualifiers: Chest pain type: other chest pain Qualified Code(s): R07.89 - Other chest pain (2) ASHD (arteriosclerotic heart disease): History of multiple stents including the LAD and circumflex. Recommend continue dual antiplatelet therapy including aspirin and Plavix. (3) HTN (hypertension): Well-controlled at this time. Continue current medications Qualifiers: Hypertension type: primary hypertension Qualified Code(s): I10 - Essential (primary) hypertension (4) Hyperlipidemia: Continue atorvastatin 40 mg daily. Our most recent LDL was 29 Qualifiers: Hyperlipidemia type: mixed hyperlipidemia Qualified Code(s): E78.2 - Mixed hyperlipidemia (5) PVC (premature ventricular contraction): Continue beta-cortez including metoprolol 50 mg twice daily (6) Acute kidney injury: Patient has a history of kidney disease. Baseline creatinine recently seems to be around 1.2. Avoid nephrotoxic medicines. We will hydrate him prior to the cath tomorrow with 100 mL an hour of normal saline. Patient is euvolemic at this time without signs or symptoms of heart failure. Plan The plan is for this very pleasant 68-year-old gentleman is to take him for a left heart cath possible PCI tomorrow around 12:00. Patient will need to be n.p.o. by 7:45 AM. He may have a light breakfast. Thank you for allowing us to take care of this gentleman. Consult Attestations 2 Medical Necessity Statement: Patient stay expected to cross 2 midnights due to chest pain, possible acute coronary syndrome, possible PCI, in need of left heart catheterization. Coding Level of Care Code Acute Code for [facility] Fwd Diagnoses Other chest pain R07.89 Chest pain type: other chest pain ASHD (arteriosclerotic heart disease) I25.10 Primary hypertension I10 Hypertension type: primary hypertension Mixed hyperlipidemia E78.2 Hyperlipidemia type: mixed hyperlipidemia PVC (premature ventricular contraction) I49.3 Acute kidney injury N17.9 Documented by User: Harvey Martins M.D 03/04/24 14:13 Medications/Allergies Home Medications Medication Instructions Recorded Confirmed Last Taken Type aspirin 81 mg tablet,delayed 81 mg PO QAM 05/10/19 03/03/24 03/03/24 History release (Adult Low Dose Aspirin) pantoprazole 40 mg tablet,delayed 40 mg PO DAILY 05/10/19 03/03/24 03/03/24 History release liraglutide 0.6 mg/0.1 mL (18 mg/3 1.8 mg SUBCUT DAILY 07/20/19 03/03/24 03/02/24 History mL) subcutaneous pen injector (Victoza 2-Kg) clopidogrel 75 mg tablet 75 mg PO DAILY 3 months #90 tabs 11/10/19 03/03/24 03/03/24 Rx metoprolol tartrate 50 mg tablet 50 mg PO BID #180 tabs 11/10/19 03/03/24 03/03/24 Rx naproxen sodium 220 mg tablet 220 mg PO Q12H PRN Pain 04/29/22 03/03/24 03/03/24 History (Aleve) cholecalciferol (vitamin D3) 25 25 mcg PO DAILY 10/10/22 03/03/24 03/03/24 History mcg (1,000 unit) capsule (Vitamin D3) docosahexaenoic acid (dha)-epa 120 1 cap PO DAILY 10/10/22 03/03/24 03/03/24 History mg-180 mg capsule (Fish Oil) finasteride 5 mg tablet 5 mg PO DAILY #90 tabs 10/11/22 03/03/24 03/03/24 Rx tamsulosin 0.4 mg capsule 0.4 mg PO DAILY #90 caps 10/11/22 03/03/24 03/03/24 Rx atorvastatin 40 mg tablet 40 mg PO QPM 10/16/22 03/03/24 03/02/24 History insulin detemir U-100 100 unit/mL 90 unit SUBCUT BID 01/21/23 03/03/24 03/03/24 History (3 mL) subcutaneous pen (Levemir FlexTouch U-100 Insulin) insulin lispro 100 unit/mL See Rx Instructions .Route .COMPLEX 06/16/23 03/03/24 03/03/24 History subcutaneous pen isosorbide mononitrate 60 mg 60 mg PO DAILY #30 tabs 06/16/23 03/03/24 03/03/24 Rx tablet,extended release 24 hr nitroglycerin 0.4 mg sublingual See Rx Instructions .Route .COMPLEX 07/27/23 03/03/24 03/02/24 History tablet potassium chloride 20 mEq 20 meq PO DAILY 07/27/23 03/03/24 03/03/24 History tablet,extended release(part/cryst) (Klor-Con M) furosemide 40 mg tablet 40 mg PO DAILY 11/16/23 03/03/24 03/03/24 History flash glucose sensor (FreeStyle #6 ea 01/27/24 03/03/24 Unknown Rx Regina 2 Sensor kit) flash glucose scanning reader #1 ea 02/02/24 03/03/24 Unknown Rx (FreeStyle Regina 2 Calypso) flash glucose sensor (FreeStyle #6 ea 02/02/24 03/03/24 Unknown Rx Regina 2 Sensor kit) carbidopa 25 mg-levodopa 100 mg 1 tab PO QID 03/01/24 03/03/24 03/03/24 History tablet hydrocodone 5 mg-acetaminophen 325 1 tab PO Q6H PRN pain 5 days #20 03/02/24 03/03/24 03/03/24 Rx mg tablet tabs Allergies Allergy/AdvReac Type Severity Reaction Status Date / Time No Known Allergies Allergy Verified 03/03/24 13:30 PFSH Acute 2 PFSH: Medical History CÉSAR (obstructive sleep apnea) Hyperlipidemia HTN (hypertension) ASHD (arteriosclerotic heart disease) Diabetes Hyperglycemia JULIET (acute kidney injury) Elbow contusion Dystonic tremor Acute on chronic renal failure Urinary tract infection Urinary retention Acute renal failure Ophthalmoplegia Parkinson disease Diabetic neuropathy associated with type 2 diabetes mellitus Essential tremor Cough Exposure to COVID-19 virus Chronic diarrhea Diabetic foot ulcer CKD (chronic kidney disease) (~10/12/20) Obesity Myocardial infarction Surgical History S/P eye surgery Status post colonoscopy (12/24/20) sigmoid polyp Status post amputation of toe S/P angioplasty with stent Family History Mother CAD (coronary artery disease) Diabetes Social History Smoking and tobacco/nicotine status: former use of tobacco/nicotine Alcohol intake: former Substance/Drug Use: never Lives independently: Yes Household members: other Details: DOG Marital status: service: No Current occupational status: disabled 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 He has had multiple previous interventions for in-stent stenosis. Troponin mildly elevated but trending down. 27-23. At this time it is our recommendation to move forward with left heart cath possible PCI . Qualifiers: Chest pain type: other chest pain Qualified Code(s): R07.89 - Other chest pain (2) ASHD (arteriosclerotic heart disease): (3) HTN (hypertension): Qualifiers: Hypertension type: primary hypertension Qualified Code(s): I10 - Essential (primary) hypertension (4) Hyperlipidemia: Qualifiers: Hyperlipidemia type: mixed hyperlipidemia Qualified Code(s): E78.2 - Mixed hyperlipidemia (5) PVC (premature ventricular contraction): (6) Acute kidney injury: Plan Thank you for involving us with care of this patient. We will continue to follow. Please call with questions. Coding Level of Care Code Acute Code for [facility] Fwd Diagnoses Other chest pain R07.89 Chest pain type: other chest pain ASHD (arteriosclerotic heart disease) I25.10 Primary hypertension I10 Hypertension type: primary hypertension Mixed hyperlipidemia E78.2 Hyperlipidemia type: mixed hyperlipidemia PVC (premature ventricular contraction) I49.3 Acute kidney injury N17.9
[2024-03-03 16:03] LABS: D Dimer <= 0.27 ug/mLFEU (0-0.59)
--- NOTE | 2024-03-03 16:23 | USCV_ITS ---
Jess Yaya Astudillo Age: 68 Gender: M : 1955 Exam Date: 03/03/2024 18:51 Ordering Phys: Aakash Faria MD Technologist: ELIZABETH Exam Location: [facility] [place] Indication: chest pain, cad. BP: 136 / 61 HR: 74 Rhythm: Sinus rhythm with strings of atrial fibrilllation Technical Quality: Adequate MEASUREMENTS (Male / Female) Normal Values 2D ECHO LV Diastolic Diameter PLAX 4.5 cm 4.2 - 5.9 / 3.9 - 5.3 cm IVS Diastolic Thickness 1.9 cm 0.6 - 1.0 / 0.6 - 0.9 cm IVS Systolic Thickness 2.1 cm LVPW Diastolic Thickness 1.9 cm 0.6 - 1.0 / 0.6 - 0.9 cm LVPW Systolic Thickness 2.3 cm LVOT Diameter 2.2 cm LV Ejection Fraction 2D Teich 58.5 % LV Ejection Fraction MOD 4C 47.0 % LV Ejection Fraction MOD 2C 40.3 % LV Ejection Fraction 2C AL 40.7 % LA Diameter 4.2 cm Aorta at Sinotubular Diameter 3.2 cm IVC Diameter 1.2 cm M-MODE LA Ao Ratio MM 1.4 AV Cusp Separation MM 2.1 cm DOPPLER AV Peak Velocity 116.0 cm/s LVOT Peak Velocity 73.0 cm/s AV Area Cont Eq vti 2.8 cm squared AV Area Cont Eq pk 2.5 cm squared MV Peak Velocity 99.0 cm/s MV Area PHT 3.4 cm squared Mitral E to A Ratio 0.8 TR Peak Velocity 277.0 cm/s TR Peak Gradient 30.7 mmHg TV Peak E Velocity 38.0 cm/s Right Atrial Pressure 10.0 mmHg Pulmonary Artery Systolic Pressu 40.7 mmHg PV Peak Velocity 96.0 cm/s FINDINGS Left Ventricle Left ventricle is normal in size. LV systolic function is mildly reduced with EF of 45-50%. Mild global hypokinesis. Grade 1 diastolic dysfunction. Right Ventricle Normal in size and function Right Atrium Normal in size Left Atrium Dilated Mitral Valve Structurally normal mitral valve. Trace mitral regurgitation. Aortic Valve Structurally normal aortic valve. No significant stenosis or regurgitation. Tricuspid Valve Mild tricuspid regurgitation. RVSP is 40-45mmHg. This is consistent with mild pulmonary hypertension. Pulmonic Valve Not well visualized Pericardium Normal Aorta Normal in size IVC Appears to be normal CONCLUSIONS LV systolic function is mildly reduced with EF of 45-50% Grade 1 diastolic dysfunction Left atrial dilation Trace mitral regurgitation Mild tricuspid regurgitation Mild pulmonary hypertension Compared to prior echocardiogram from 2017, LV systolic function has decreased. Harvey Martins MD (Electronically Signed) Final Date: 04 March 2024 09:23 S
[2024-03-03 16:25] LABS: Estmated Average Glucose 189; Hemoglobin A1C 8.2 % (4.0-6.0)
--- NOTE | 2024-03-03 16:29 | ECG_ITS ---
[facility] Date: 2024-03[facility]03 Pat Name: Yaya Astudillo Department: Room: 106 Gender: Male Echocardiography Technologist: : 1955 Requested By: Abhishek Fowler Order Number: [id number] Tr MD: Harvey Martins M.D. Measurements Intervals [place] Rate: 80 P: 26 NM: 203 QRS: -35 QRSD: 107 T: 63 QT: 365 QTc: 424 Interpretive Statements SINUS RHYTHM WITH FREQUENT VENTRICULAR PREMATURE COMPLEXES IN A BIGEMINAL PATTERN LEFT AXIS DEVIATION [QRS AXIS < -30] ANTEROSEPTAL MYOCARDIAL INFARCTION , OF INDETERMINATE AGE [40+ ms Q WAVE IN V1-V4] Compared to ECG 03/03/2024 13:22:20 First degree AV block no longer present Myocardial infarct finding still present Electronically Signed On 03-05-2024 10:38:06 PAROLE HEARING OFFICER by Harvey Martins M.D. [email or web address]
[2024-03-03 16:32] LABS: Magnesium 2.1 mg/dL (1.7-2.3)
[2024-03-03 16:41] LABS: Glucose Point of Care 191 mg/dL (70-110)
[2024-03-03] MEDS: sodium chloride 0.9% 1,000 ML 100 ML IV (16:50)
[2024-03-03] MEDS: aspirin 325 mg Tablet PO (16:51)
[2024-03-03] MEDS: insulin lispro 100 unit/1 mL SUBCUT ×2 (16:51→21:14)
[2024-03-03] MEDS: metoprolol tartrate 50 mg Tablet PO (16:51)
[2024-03-03] MEDS: enoxaparin 40 mg/0.4 mL Syringe SUBCUT (16:51)
[2024-03-03] MEDS: carbidopa-levodopa 25-100mg Tablet 1 EACH PO ×2 (16:51→21:14)
[2024-03-03] MEDS: atorvastatin 40 mg Tablet PO (16:51)
--- NOTE | 2024-03-03 19:19 | ECG_ITS ---
[facility] Test Date: 2024-03-03 Pat Name: Yaya Astudillo Department: Room: 106 Gender: Male Animal Warden: : 1955 Requested By: Abhishek Fowler Order Number: [id number] Tr MD: Harvey Martins M.D. Measurements Intervals [place] Rate: 78 P: 60 TN: 194 QRS: 86 QRSD: 89 T: -80 QT: 382 QTc: 437 Interpretive Statements SINUS RHYTHM WITH FREQUENT VENTRICULAR PREMATURE COMPLEXES IN A BIGEMINAL PATTERN LOW QRS VOLTAGE IN PRECORDIAL LEADS [QRS DEFLECTION < 1.0 mV IN CHEST LEADS] POSSIBLE RIGHT VENTRICULAR CONDUCTION DELAY [RSR (QR) IN V1/V2] ANTEROSEPTAL MYOCARDIAL INFARCTION , OF INDETERMINATE AGE [40+ ms Q WAVE IN V1-V4] Compared to ECG 03/03/2024 16:29:17 Low QRS voltage now present T-wave abnormality now present Left-axis deviation no longer present Myocardial infarct finding still present Electronically Signed On 03-05-2024 10:37:52 COMPUTER CONSULTANT by Harvey Martins M.D. [email or web address]
[2024-03-03 19:29] LABS: Glucose Point of Care 257 mg/dL (70-110)
[2024-03-03 20:03] LABS: Troponin 5 6HR 26.09 ng/L (0-15)
[2024-03-03 20:07] LABS: Troponin 5 6HR Delta -0.91 ng/L (0-12)
[2024-03-03] MEDS: insulin glargine 100 units/1 mL 25 UNIT SUBCUT (21:15)
[2024-03-04] VITALS (31 sets, daily range): BP systolic 106–150; BP diastolic 50–87; PULSE 70–85; RESP 14–43; TEMP 36.5–36.8; O2SAT 90–99
[2024-03-04 04:50] LABS: Basophils % 0.7 %; Eosinophils # 0.2 10^3/uL (0.0-0.8); Eosinophils % 2.9 %; Lymphocytes # 1.4 10^3/uL (0.8-4.8); Lymphocytes % 26.4 %; Mean Corpuscular HGB Conc 32.6 g/dL (30-55); Mean Platelet Volume 10.9 fL (7.4-10.4); Monocytes # 0.5 10^3/uL (0.2-0.9); Monocytes % 8.6 %; Neutrophils # 3.34 10^3/uL (1.8-7.7); Neutrophils % 61.2 %; Nucleated Red Blood Cells % 0 %; Platelet Count 169 10^3/cmm (157-399); Red Blood Count 4.27 10^6/uL (3.85-5.65); Red Cell Distribution Width 14.2 % (12.1-15.1); White Blood Count 5.46 10^3/uL (3.29-11.43)
[2024-03-04 05:17] LABS: Blood Urea Nitrogen 31 mg/dL (8-23); Calcium 8.8 mg/dL (8.5-10.5); Carbon Dioxide 24 mmol/L (22-29); Chloride 107 mmol/L (98-107); Creatinine Clr Calc Pharmacy 61.9529; Glomerular Filtration Rate 54.9 mL/min (90-130); Glucose 136 mg/dL (65-115); Osmolality Calculated 301 mOsm/kg (285-295); Sodium 141 mmol/L (136-145)
[2024-03-04 06:59] LABS: Glucose Point of Care 130 mg/dL (70-110)
[2024-03-04] MEDS: tamsulosin 0.4 mg Capsule PO (08:23)
[2024-03-04] MEDS: finasteride 5 mg Tablet PO (08:24)
[2024-03-04] MEDS: FUROsemide 40 mg Tablet PO (08:24)
[2024-03-04] MEDS: aspirin 325 mg Tablet PO (08:24)
[2024-03-04] MEDS: clopidogrel 75 mg Tablet PO (08:24)
[2024-03-04] MEDS: pantoprazole DR 40 mg Tablet PO (08:24)
[2024-03-04] MEDS: carbidopa-levodopa 25-100mg Tablet 1 EACH PO ×4 (08:24→20:33)
[2024-03-04] MEDS: metoprolol tartrate 50 mg Tablet PO ×2 (08:24→17:25)
[2024-03-04] MEDS: isosorbide mononitrate ER 60 mg Tablet PO (08:24)
--- NOTE | 2024-03-04 09:59 | P.PN_ITS ---
<Statement entered by Harvey Martins M.D - 03/04/24 14:36> Patient was evaluated and cared for in conjunction with an advanced practice practitioner.? I personally examined the patient and reviewed the chart and all pertinent data including imaging, telemetry, and laboratory results.? I discussed the patient in detail with the advanced practice practitioner.? Please see? their note for complete H&P, testing results and agreed upon plan of care for the patient. Patient is chest pain free. Coronary angiogram shows patent prior stents with mild luminal irregularities. GENERAL: Patient is alert, awake and oriented x3. HEART: Regular S1 and S2 LUNGS: Clear to auscultate bilaterally. CENTRAL NERVOUS SYSTEM: Grossly nonfocal. EXTREMITIES: Lower extremities with out edema bilaterally. Assessment and Plan Chest pain Symptom free now. Coronary angiogram showed patent prior stents. Likely microvascular dysfunction. Can add Imdur 30mg daily. Continue dual antiplatelet therapy IV fluids overnight. Renal function has stable by tomorrow, can be discharged home. Thanks for involving us with care of this patient. We will continue to follow. please call with questions. Documented by User: Maru Keys NP 03/04/24 10:01 Subjective 2 Subjective: Patient doing well with no complaints overnight. Creatinine improved at 1.3. He states he is ready to get his heart cath. No episodes of chest pain. Still having bigeminal PVCs asymptomatic at this time Medications: Reviewed: Yes Vitals/I&O/Wt Last Vital Signs Temp 98.0 F 03/04/24 07:53 Pulse 80 03/04/24 07:53 Resp 22 H 03/04/24 07:53 BP 148/86 03/04/24 07:53 Pulse Ox 97 03/04/24 07:53 O2 Del Method Room Air 03/04/24 07:53 03/03/24 03/04/24 03/04/24 22:59 06:59 14:59 Intake Total 840 / 840 1000 / 1840 240 / 240 Output Total 400 / 400 675 / 1075 Balance 440 / 440 325 / 765 240 / 240 Weight last 48 hrs Weight 217 lb 11.2 oz Weight 217 lb 11.2 oz Weight 227 lb Physical Exam 2 Narrative: General: No apparent distress, healthy appearing, well nourished HENMT: normoceophalic Eye: PERRL Neck: No carotid bruit bilaterally Muskuloskeletal: Full ROM Respiratory: Normal respiratory effort, clear to auscultation bilaterally throughout all lung lambert, no use of accessory muscles Cardio: No JVD, regular rate, regular rhythm, S1 S2 normal, no murmurs, peripheral pulses 2+ throughout GI: Normal to inspection, nondistended Extremities: Full ROM, normal, normal capillary refill, no cyanosis or edema Neuro: Alert and oriented x4, no focal motor deficits Psych: Affect normal, denies suicidal ideation, mental status grossly normal Skin: No rashes or lesions noted, no wounds Data 03/04/24 04:30 03/04/24 04:30 A&P Assessment and plan (1) Chest pain: 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 N.p.o. 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 He has had a light breakfast but is n.p.o. at this time Qualifiers: Chest pain type: other chest pain Qualified Code(s): R07.89 - Other chest pain Plan As stated above Attestations 2 Medical Necessity Statement*: Defer to primary Coding Level of Care Code Acute Code for Chg Fwd Diagnoses Other chest pain R07.89 Chest pain type: other chest pain Documented by User: Harvey Martins M.D 03/04/24 14:32 Subjective 2 Subjective: Patient doing well with no complaints overnight. Creatinine improved at 1.3. Coronary angiogram showed patent prior stents with diffuse luminal irregularities. Data 03/04/24 04:30 03/04/24 04:30 A&P Assessment and plan (1) Chest pain: Patient had coronary angiogram for worsening anginal symptoms. He patent prior stents with diffuse luminal irregularities. Continue dual antiplatelet therapy. Can start isosorbide mononitrate IV fluids. Repeat creatinine in the AM, if stable can be discharged home Thank you for involving us with care of this patient. We will continue to follow. Please call with questions. Qualifiers: Chest pain type: other chest pain Qualified Code(s): R07.89 - Other chest pain Attestations 2 Medical Necessity Statement*: Care expected to cross 2 midnights. Coding Level of Care Code Acute Code for Chg Fwd Diagnoses Other chest pain R07.89 Chest pain type: other chest pain
[2024-03-04] MEDS: diphenhydrAMINE 50 mg Capsule PO (11:17)
--- NOTE | 2024-03-04 12:00 | XACV_ITS ---
Exam Room: [facility] Ht: 173 cm Wt: 98 kg BSA: 2.21 m2 Gender: Male : 1955 Any Known Allergies: No known allergies Exam Priority: Routine Procedure(s): Procedure Description: Diagnostic procedure Procedure Description: Left Heart Catheterization Procedure Description: Left ventriculography Procedure Description: Coronary Angiography Diagnostic Cath Status: Urgent Diagnostic Findings * INDICATION: Worsening angina. * Left Main has mild luminal irregularities. * Left Anterior Descending has proximal to mid LAD prior stents. In mid section has moderate 40-50% in-stent restenosis. * Right Coronary Artery has proximal 20-30% stenosis. * Proximal Circumflex: minimal 30% stenosis, MARYANA: 3 flow. * Coronary angiography shows right dominance. Conclusions 1. Moderate in-stent restenosis of mid LAD stent. Aggressive medical therapy. 2. Mild left ventricular systolic dysfunction. Ejection fraction of 40%. Recommendations * Aggressive risk factor modification. * Outpatient cardiology follow up in 2 weeks. Interventional RX Recommendation: medical therapy and/or counseling Diagnostic RX Recommendation: medical therapy and/or counseling Anticoagulation: Heparin Ventriculography Ejection Fraction: 40.0 % Pressures Phase:Rest AO : 114 / 52 ( 74 ) @ 12:52:00 PM 85 / 56 ( 60 ) @ 12:58:00 PM 105 / 46 ( 69 ) @ 12:58:00 PM LV : 73 / 11 / 7 @ 12:58:00 PM 78 / 3 / 2 @ 12:58:00 PM 78 / 3 / 2 @ 12:58:00 PM Valves Phase:DefaultPhase AV : 0.0 @ 1:06:03 PM AV Mean Gradient: 0.0 @ 1:06:03 PM Clinical Evaluation EBL: 5mL-10mL Procedural Details Pre-Procedure Time Out. Identified patient by full name and date of as verbalized by the patient/guarantor. Does the consent match the physician's order: Yes. Accurate & Complete Informed Consent: Yes. Inpatient/Outpatient History & Physical on Chart: Yes. If H&P is completed, is and addenduem needed: No; If yes, is the addendum complete: N/A. Visualize and Verify Site with Patient/Guarantor: N/A. Relevant Radiology Images available: N/A. Pre-op teaching completed and patient verbalized understanding. The risks, benefits, and alternatives of sedation and/or procedure were discussed by physician. The patient agrees to continue. Procedure started. [facility] Clinical Fraility Score: 4: Vulnerable. 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 Chest Pain Symptom Assessment: Typical Angina Symptoms. Cardiovascular Instability: No. Correct patient, site and procedure confirmed by cath team. PERRLA. Strong, equal hand screen printer bilaterally. Lungs clear x 5 lobes. IV Site on Arrival: 20 gauge in the right forearm. IV Fluids: 0.9% NaCl at KVO. 0 mL infused prior to earth science laboratory technician. Pre Procedural Pulses: bilateral dorsalis pedis was 1+. Pre Procedural Pulses: bilateral posterior tibial was Doppled. Pre Procedural Pulses: bilateral radial was 2+. Oxygen started at 2liters/min via nasal canula. right groin was prepped with chloroprep then draped in the usual sterile fashion. right radial was prepped with chloroprep then draped in the usual sterile fashion. Baseline sample Acquired. HR: 83 BPM. Equipment: 6F - Radial. Cardiac Cath Pack. ACIST Manifold Kit Model BT 2000. Heparinized Saline (2 units/mL), 1000 mL bag. Physician arrived. Physician scrubbed in. Immediate Pre-Procedure Time Out. Correct Patient: Yes; Correct Procedure: Yes; Correct Site: Yes; Correct Patient Position: Yes; Correct Supplies: Yes; Dried Flammable Prep: Yes; Blood Products Available: N/A;. Lidocaine 1% infiltrated to the right radial. Arterial access obtained. A 5 slovenian TIG catheter in over wire. Multiple views taken of left coronary artery. Catheter redirected to the RCA. Multiple views taken of right coronary artery. Catheter removed over the exchange wire. A 5 slovenian Angled Pig catheter in over wire. EDP Sample taken: LV 73/11,7; HR: 50 BPM; SpO2: Off%. LV gram performed in LEYVA @ 10 mL/second for a total of 30 mL. EDP Sample taken: LV 78/3,2; HR: 55 BPM; SpO2: 99%. Pullback taken: LV 78/3,2; AO 85/56(60); Mean: 0mmHg, Peak to Peak: 0mmHg, SEP: 5sec/min; HR: 59 BPM; SpO2: 99%. Catheter removed over the exchange wire. Physician scrubbed out. A TR Band was successful obtaining hemostatsis at the Right Radial artery insertion site. TR band placed. Hemostasis obtained. Post Procedure: Pulses reassessed and unchanged. PERRLA. Strong, equal hand screen printer bilaterally. No VTE prophylaxis required. Contrast type used: Visipaque 320 mgI/mL, 100 mL bottle. Post-op diagnosis: non obstructive CAD. Complications: none. Estimated blood loss: 5mL-10mL. Responsiveness - Normal response to verbal stimuli; alert and oriented, PERRLA. Airway - Unaffected, no intervention required; spontaneous ventilation. Circulation: W/N/L, pulses unchanged. Medication's Wasted: Lidocaine 1% = 18 mg. Medication's Wasted: Nitro = 49.8 mg. Medication's Wasted: Other = versed 1 mg. Medication's Wasted: Other = fentanyl 50 mcg. Medication's Wasted: Heparin = 1000 units. Total IV fluids: 20 mL. Nausea/Vomiting: No. Procedure completed. Patient transferred by bed to 1st floor. Vital chart was stopped. Access Site Site: Right Radial artery Sheath Size: 6 Fr Hemostasis Method: TR Band Hemostasis Success: Successful Procedure Medications Start: 12:41 PM Stop: 12:41 PM Medication: Versed Amount: 1 mg Route: I.V. Start: 12:41 PM Stop: 12:41 PM Medication: Fentanyl Amount: 50 mcg Route: I.V. Start: 12:50 PM Stop: 12:50 PM Medication: Nitrogylcerin Amount: 200 mcg Route: I.A. Start: 12:52 PM Stop: 12:52 PM Medication: Heparin Amount: 5000 units Route: I.V. I, the attending physician, have reviewed and verified all procedure medications. Yes, all medications given per verbal order History/Risk Factors Hypertension: Yes Dyslipidemia: Yes Peripheral Arterial Disease (PAD): No Myocardial Infarction (CT): Yes Obesity: Yes Renal Disease: No Prior Interventions PCI: Yes CABG: No Valve Surgery: No Date of PCI: 02/12/2017 Report Signatures Finalized by Harvey Martins MD on 03/08/2024 11:54 AM
--- NOTE | 2024-03-04 12:32 | PC.NURSE ---
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
--- NOTE | 2024-03-04 12:44 | W.PM.OPSUD ---
Surgery/Procedure H&P Update DATE OF PROCEDURE: March 04, 2024 DATE H&P PERFORMED: 03/03/24 H&P UPDATE INFORMATION: I have reviewed H&P completed within last 30 days, I have examined patient prior to procedure and No changes to prior documentation PREOP DIAGNOSIS: Worsening angina PRIMARY INDICATION FOR PROCEDURE: Worsening angina PLANNED PROCEDURE: Operation Date: 03/04/24 12:00 Proposed Procedures p Cardiac Catheterization(Left) - Harvey Martins M.D Possible percutaneous coronary intervention PATIENT REASSESSED PRIOR TO SEDATION, WITH NO CHANGE NOTED: Yes PHYSICAL EXAM: alert, oriented x 3, clear to auscultation bilaterally and regular rate & rhythm AIRWAY EVAL/ANESTHESIA PLAN: normal airway, ASA III, Local Anesthesia, Risks, benefits & alternatives of sedation and/or procedure discussed and Patient agrees to continue as planned ADDITIONAL INFORMATION: Moderate sedation
[2024-03-04 13:21] LABS: Glucose Point of Care 199 mg/dL (70-110)
[2024-03-04] MEDS: insulin lispro 100 unit/1 mL SUBCUT ×3 (13:26→20:35)
--- NOTE | 2024-03-04 13:44 | P.PN_ITS ---
Subjective 2 Subjective: This morning without chest pain. Awaiting coronary angiography. Mild right shoulder pain today, he tried not to sleep on last night and is feeling better. Vitals/I&O/Wt Last Vital Signs Temp 97.7 F 03/04/24 13:22 Pulse 72 03/04/24 13:22 Resp 14 03/04/24 13:22 BP 121/51 03/04/24 13:22 Pulse Ox 96 03/04/24 13:22 O2 Del Method Room Air 03/04/24 13:22 03/03/24 03/04/24 03/04/24 22:59 06:59 14:59 Intake Total 840 / 840 1000 / 1840 240 / 240 Output Total 400 / 400 675 / 1075 1350 / 1350 Balance 440 / 440 325 / 765 -1110 / -1110 Weight last 48 hrs Weight 98.747 kg Weight 98.747 kg Weight 102.965 kg Physical Exam 2 Const: COMMON NORMALS: patient oriented x3 and alert GENERAL APPEARANCE: c ooperative NUTRITIONAL APPEARANCE: overweight ORIENTATION/CONSCIOUSNESS: Y es awake HENMT: COMMON NORMALS: oropharynx normal Neck/C-Spine: COMMON NORMALS: no JVD Resp: COMMON NORMALS: normal respiratory effort and clear to auscultation bilaterally AUSCULTATION: clear to auscultation bilaterally Cardio: COMMON NORMALS: no JVD, regular rhythm, S1 normal heart sound present, S2 normal heart sound present and No murmurs present (Cardio) RHYTHM: regular rhythm HEART SOUNDS: S1 normal heart sound present and S2 normal heart sound present GI: COMMON NORMALS: Normal to inspection, nondistended, normoactive bowel sounds present, Soft to palpation and non-tender PALPATION: Yes Soft to palpation Extremity: COMMON NORMALS: no joint enlargement and no pedal edema N ARRATIVE EXTREMITY EXAM: R shoulder without swelling, erythema, no PROM pain. Neuro: COMMON NORMALS: patient oriented x3 and moves all extremities S ENSORIUM/ORIENTATION: Yes alert Skin: COMMON NORMALS: no rashes or lesions noted GENERAL SKIN EXAM: no rashes or lesions noted Data 03/04/24 04:30 03/04/24 04:30 A&P Assessment and plan (1) Chest pain: Reviewed vitals, CBC, CMP, magnesium. Trop series. Cardiology note. Discussed with cardiology team. Awaiting coronary angiogram. Scheduled today for around noon. Receiving gentle IV hydration, monitor for risk of fluid overload. Monitor risk of kidney injury with angiogram, reassess chemistry. Monitor on telemetry for risk of arrhythmia with possible cardiac ischemia. Follow-up pending echocardiogram. Continue aspirin, Plavix, beta-cortez, statin. Qualifiers: Chest pain type: other chest pain Qualified Code(s): R07.89 - Other chest pain (2) PVC (premature ventricular contraction): Follow-up echocardiogram, coronary angiogram. Noted frequent PVC on EKG, monitor, intermittent runs of bigeminy. Complete workup for possible ischemia as above. Reviewed chemistry, potassium is okay. Reviewed magnesium. Continue metoprolol. (3) ASHD (arteriosclerotic heart disease): Better diabetes control, reviewed A1c, 8.2. Reports prior stents x 6. Continue aspirin, statin, beta-cortez. He is a former smoker. Continue insulin. Check A1c. Poorly controlled diabetes previously, A1c 14.8 back in November. Reassess. Plan JULIET on CKD, Reviewed creatinine, down to 1.3. Reviewed BUN, bicarb, potassium. Reassess chemistry. Does seem to have naproxen listed as needed. Would avoid NSAIDs. 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 Lantus. Sliding scale insulin. HTN: Monitor blood pressures. Continue Imdur, metoprolol. HLD: Continue statin Parkinson's disease, continue Sinemet CÉSAR, has been untreated. Other medical problems Attestations 2 Medical Necessity Statement*: Continue admission for assessment management of chest pain, possible cardiac ischemia with extensive cardiac history and multiple prior stents, with noted frequent PVCs, JULIET on CKD. and High MDM includes amount and/or complexity of data reviewed/ordered [ previous or external records, resulted lab(s)/test(s), ordered lab(s)/test(s) and other healthcare professional discussion] and described risk of complication, morbidity or mortality of management as documented Diagnoses Other chest pain R07.89 Chest pain type: other chest pain PVC (premature ventricular contraction) I49.3 ASHD (arteriosclerotic heart disease) I25.10
--- NOTE | 2024-03-04 14:29 | PC.NURSE ---
return from cardiac cathode maker at 1315.report received.pt alert and awake and oriented x 4.denied pain.sr w/freq pvc's on monitor(no change from pre-op).right wrist with tr band on and inflated.right hand is warm to touch and with brisk capillary refill.no hematoma noted.palpable radial pulse noted distal to tr band.pt instructed in activity restrictions s/p radial artery procedure...and instructed to notify staff for any bleeding,pain,swelling,sob,numbness..or for any concerns at all.pt verb understanding of instructions
[2024-03-04 17:04] LABS: Glucose Point of Care 203 mg/dL (70-110)
[2024-03-04] MEDS: enoxaparin 40 mg/0.4 mL Syringe SUBCUT (17:24)
[2024-03-04] MEDS: atorvastatin 40 mg Tablet PO (17:25)
--- NOTE | 2024-03-04 18:52 | PC.NURSE ---
right wrist tr band slowly deflated and eventually removed at 1814.no hematoma noted.site dressed with 2x2 gauze and secured with biocclusive drsg.pt instructed in activity restrictions s/p tr band removal and instructed to notify staff for any bleeding,pain,numbness,sob,or for any concerns at all.pt verb understanding of instructions
[2024-03-04 20:28] LABS: Glucose Point of Care 209 mg/dL (70-110)
[2024-03-04] MEDS: lidocaine 5% Patch 1 PATCH TOPICAL (20:33)
[2024-03-04] MEDS: insulin glargine 100 units/1 mL 25 UNIT SUBCUT (20:35)
[2024-03-05] VITALS: BP 123/73; PULSE 73; RESP 33; TEMP 36.6; O2SAT 99
[2024-03-05 04:00] VITALS: BP 138/73; PULSE 73; RESP 27; TEMP 36.8; O2SAT 99
[2024-03-05 04:09] LABS: Blood Urea Nitrogen 30 mg/dL (8-23); Calcium 8.8 mg/dL (8.5-10.5); Carbon Dioxide 24 mmol/L (22-29); Chloride 108 mmol/L (98-107); Creatinine Clr Calc Pharmacy 61.9529; Glomerular Filtration Rate 54.9 mL/min (90-130); Glucose 194 mg/dL (65-115); Osmolality Calculated 305 mOsm/kg (285-295); Sodium 142 mmol/L (136-145)
[2024-03-05 04:16] LABS: Anion Gap 14.1 (5-19); Potassium 4.1 mmol/L (3.5-5.1)
[2024-03-05 04:20] LABS: Basophils % 0.6 %; Eosinophils # 0.1 10^3/uL (0.0-0.8); Eosinophils % 2.4 %; Hematocrit 36.4 % (37-53); Lymphocytes # 1.2 10^3/uL (0.8-4.8); Lymphocytes % 24.7 %; Mean Corpuscular HGB Conc 31.6 g/dL (30-55); Mean Corpuscular Hemoglobin 28.9 pg (27-33); Mean Corpuscular Volume 91.5 fl (82-101); Mean Platelet Volume 11.6 fL (7.4-10.4); Monocytes # 0.5 10^3/uL (0.2-0.9); Monocytes % 9.3 %; Neutrophils # 3.09 10^3/uL (1.8-7.7); Neutrophils % 62.8 %; Nucleated Red Blood Cells % 0 %; Platelet Count 152 10^3/cmm (157-399); Red Blood Count 3.98 10^6/uL (3.85-5.65); Red Cell Distribution Width 14.2 % (12.1-15.1); White Blood Count 4.93 10^3/uL (3.29-11.43)
[2024-03-05 06:00] VITALS: PULSE 71
[2024-03-05 06:35] LABS: Glucose Point of Care 180 mg/dL (70-110)
[2024-03-05 07:28] VITALS: BP 155/84; PULSE 81; RESP 20; TEMP 36.6; O2SAT 98
--- NOTE | 2024-03-05 08:53 | PM.PN ---
Vitals/I&O/Wt Last Vital Signs Temp 97.8 F 03/05/24 07:28 Pulse 81 03/05/24 07:28 Resp 20 H 03/05/24 07:28 BP 155/84 03/05/24 07:28 Pulse Ox 98 03/05/24 07:28 O2 Del Method Room Air 03/05/24 07:28 03/04/24 03/05/24 03/05/24 22:59 06:59 14:59 Intake Total 200 / 440 100 / 540 Output Total 625 / 1975 200 / 2175 Balance -425 / -1535 -100 / -1635 Weight last 48 hrs Weight 217 lb 11.2 oz Weight 217 lb 11.2 oz Weight 217 lb 11.2 oz Weight 227 lb Data 03/05/24 03:30 03/05/24 03:30 Coding Level of Care Code Acute Code for Chg Fwd
[2024-03-05] MEDS: clopidogrel 75 mg Tablet PO (08:55)
[2024-03-05] MEDS: metoprolol tartrate 50 mg Tablet PO (08:55)
[2024-03-05] MEDS: FUROsemide 40 mg Tablet PO (08:55)
[2024-03-05] MEDS: isosorbide mononitrate ER 60 mg Tablet PO (08:55)
[2024-03-05] MEDS: tamsulosin 0.4 mg Capsule PO (08:55)
[2024-03-05] MEDS: carbidopa-levodopa 25-100mg Tablet 1 EACH PO (08:56)
[2024-03-05] MEDS: finasteride 5 mg Tablet PO (08:56)
[2024-03-05] MEDS: aspirin 325 mg Tablet PO (08:56)
[2024-03-05] MEDS: insulin lispro 100 unit/1 mL SUBCUT (08:56)
[2024-03-05] MEDS: pantoprazole DR 40 mg Tablet PO (10:00)
--- NOTE | 2024-03-05 10:09 | PM.DCS ---
Discharge Providers Date of Admission: 03/03/24 14:53 Date of Discharge: March 05, 2024 Attending Provider at Admission: Aakash Faria Attending Provider at Discharge: Aakash Faria Primary Care Provider: CHRIS Summers Diagnoses at Discharge Discharge Diagnosis (1) Chest pain: Status: Acute Qualifiers: Chest pain type: other chest pain Qualified Code(s): R07.89 - Other chest pain Reason for Visit Reason for Visit: CHEST PAIN Brief History: Pleasant 68-year-old gentleman with history of CAD, 6 prior stents, DM2, HTN, former smoker, CKD, Parkinson's disease, CÉSAR, other medical problems presented due to bothersome chest pain radiating to the upper back reminding him of similar pain he had during last time he was having an issue with his heart and required stents. He denies other associated symptoms. He does get somewhat dyspneic with exertion. He had a stress test in June which showed medium sized area of prior infarct in LAD territory. LV systolic function 41%. Hospital Course Hospital Course He was further assessed by cardiology, monitored on telemetry. Troponin showed persistent mild elevation. He was further assessed by coronary angiography which did not reveal any hemodynamically significant stenosis. Renal function was reassessed with improving JULIET, creatinine came down to 1.3. Please follow-up for resolution of symptoms, reassess for resolution of JULIET. He is advised to discontinue and avoid NSAIDs. He additionally had some improvement from chronic right shoulder pain with lidocaine patch. She does tend to sleep on that shoulder and some may reinjure it at night. No sign of dislocation, no erythema, swelling, tenderness to palpation or painful ROM on exam. Discussed with him to protect the shoulder, and he will continue lidocaine patch, try capsaicin, mental, cool or heat pack and follow-up for additional assessment with primary provider. Physical Exam Narrative: He is feeling better today. Not bothered by any pain. Shoulder has improved, responded to lidocaine patch. Sitting up at bedside. Comfortable with the idea of returning home. Const: COMMON NORMALS: patient oriented x3 and alert GENERAL APPEARANCE: cooperative NUTRITIONAL APPEARANCE: overweight ORIENTATION/CONSCIOUSNESS: Yes awake HENMT: COMMON NORMALS: oropharynx normal Neck/C-Spine: COMMON NORMALS: no JVD Resp: COMMON NORMALS: normal respiratory effort and clear to auscultation bilaterally AUSCULTATION: clear to auscultation bilaterally Cardio: COMMON NORMALS: no JVD, regular rhythm, S1 normal heart sound present, S2 normal heart sound present and No murmurs present (Cardio) RHYTHM: regular rhythm HEART SOUNDS: S1 normal heart sound present and S2 normal heart sound present GI: COMMON NORMALS: Normal to inspection, nondistended, normoactive bowel sounds present, Soft to palpation and non-tender PALPATION: Yes Soft to palpation Extremity: COMMON NORMALS: no joint enlargement and no pedal edema NARRATIVE EXTREMITY EXAM: R shoulder without swelling, erythema, no PROM pain. Neuro: COMMON NORMALS: patient oriented x3 and moves all extremities SENSORIUM/ORIENTATION: Yes alert Skin: COMMON NORMALS: no rashes or lesions noted GENERAL SKIN EXAM: no rashes or lesions noted Discharge Data Studies Completed and Pending Completed Studies During Hospitalization Category Date Time Status XR chest 1V portable [id number] Stat Exams 03/03/24 13:19 Completed Pending at discharge Category Date Time Status MANUFACTURING TECHNOLOGY ANALYST request for service Routine Exams 03/04/24 12:00 Ordered Basic Metabolic Panel AM LABS Lab 03/06/24 04:00 Ordered Complete Blood Count w/Auto AM LABS Lab 03/06/24 04:00 Ordered CV. echo complete* [id number] Routine Ultrasound 03/03/24 16:23 Taken Radiology Impressions Chest X-Ray 03/03/24 13:19 IMPRESSION: 1. No acute cardiopulmonary process. Laboratory Results WBC 4.93 10^3/uL (3.29-11.43) 03/05/24 03:30 RBC 3.98 10^6/uL (3.85-5.65) 03/05/24 03:30 Hgb 11.50 g/dL (11.27-16.99) 03/05/24 03:30 Hct 36.4 % (37-53) L 03/05/24 03:30 MCV 91.5 fl (82-101) 03/05/24 03:30 MCH 28.9 pg (27-33) 03/05/24 03:30 MCHC 31.6 g/dL (30-55) 03/05/24 03:30 RDW 14.2 % (12.1-15.1) 03/05/24 03:30 Plt Count 152 10^3/cmm (157-399) L 03/05/24 03:30 MPV 11.6 fL (7.4-10.4) H 03/05/24 03:30 Neut % (Auto) 62.8 % 03/05/24 03:30 Lymph % (Auto) 24.7 % 03/05/24 03:30 [place] % (Auto) 9.3 % 03/05/24 03:30 Eos % (Auto) 2.4 % 03/05/24 03:30 Baso % (Auto) 0.6 % 03/05/24 03:30 Neut # (Auto) 3.09 10^3/uL (1.8-7.7) 03/05/24 03:30 Lymph # (Auto) 1.2 10^3/uL (0.8-4.8) 03/05/24 03:30 [place] # (Auto) 0.5 10^3/uL (0.2-0.9) 03/05/24 03:30 Eos # (Auto) 0.1 10^3/uL (0.0-0.8) 03/05/24 03:30 Baso # (Auto) 0.0 10^3/uL (0.0-0.1) 03/05/24 03:30 Nucleated RBC % (auto) 0 % 03/05/24 03:30 Nucleated RBCs # 0.0 /100WBC 03/05/24 03:30 PT 13.00 SECONDS (12.1-14.9) 03/03/24 12:42 INR 0.96 (0.8-1.2) 03/03/24 12:42 D-Dimer <= 0.27 ug/mLFEU (0-0.59) 03/03/24 12:42 Sodium 142 mmol/L (136-145) 03/05/24 03:30 Potassium 4.1 mmol/L (3.5-5.1) 03/05/24 03:30 Chloride 108 mmol/L (98-107) H 03/05/24 03:30 Carbon Dioxide 24 mmol/L (22-29) 03/05/24 03:30 Anion Gap 14.1 (5-19) 03/05/24 03:30 BUN 30 mg/dL (8-23) H 03/05/24 03:30 Creatinine 1.3 mg/dL (0.7-1.2) H 03/05/24 03:30 GFR Calculation 54.9 mL/min (90-130) L 03/05/24 03:30 Glucose 194 mg/dL (65-115) H 03/05/24 03:30 POC Glucose 180 mg/dL (70-110) H 03/05/24 06:16 Estimat Average Glucose 189 03/03/24 12:42 Hemoglobin A1c 8.2 % (4.0-6.0) H 03/03/24 12:42 Calculated Osmolality 305 mOsm/kg (285-295) H 03/05/24 03:30 Calcium 8.8 mg/dL (8.5-10.5) 03/05/24 03:30 Magnesium 2.1 mg/dL (1.7-2.3) 03/03/24 14:32 Total Bilirubin 0.6 mg/dL (0.15-1.2) 03/03/24 12:42 AST 19 U/L (0-40) 03/03/24 12:42 ALT < 5 U/L (0-41) 03/03/24 12:42 Alkaline Phosphatase 84 U/L (40-130) 03/03/24 12:42 Troponin T Baseline 27 ng/L (0-15) H 03/03/24 12:42 Troponin T 120 Minute 23.07 ng/L (0-15) H 03/03/24 14:32 Delta Troponin T -3.93 ABS# (0-10) L 03/03/24 14:32 Troponin T Hi Sens 6Hr 26.09 ng/L (0-15) H 03/03/24 19:39 Troponin T Hi Sens 6Hr Delta -0.91 ng/L (0-12) L 03/03/24 19:39 Total Protein 6.6 g/dL (6.6-8.7) 03/03/24 12:42 Albumin 4.1 g/dL (3.5-5.2) 03/03/24 12:42 Globulin 2.5 g/dL (1.3-4.6) 03/03/24 12:42 Lipase 45 U/L (13-60) 03/03/24 12:42 Vitals Last Vital Signs Temp 97.8 F 03/05/24 07:28 Pulse 81 03/05/24 07:28 Resp 20 H 03/05/24 07:28 BP 155/84 03/05/24 07:28 Pulse Ox 98 03/05/24 07:28 O2 Del Method Room Air 03/05/24 07:28 Discharge Plan Discharge Patient Disposition: Home Condition: Stable Prescriptions: New lidocaine 5 % Adhesive Patch,Medicated 1 patch topical [id number] Qty: 14 1RF Continued aspirin [Adult Low Dose Aspirin] 81 mg tablet,delayed release (DR/EC) 81 mg PO QAM pantoprazole 40 mg tablet,delayed release (DR/EC) 40 mg PO DAILY atorvastatin 40 mg tablet 40 mg PO QPM Levemir FlexTouch U100 Insulin 100 unit/mL (3 mL) insulin pen 90 unit SUBCUT BID clopidogrel 75 mg tablet 75 mg PO DAILY 90 Days Qty: 90 3RF metoprolol tartrate 50 mg tablet 50 mg PO BID Qty: 180 3RF (DME) FreeStyle Regina 2 Sensor Kit See Rx Instructions .ROUTE .COMPLEX Qty: 6 2RF Dose Instruction: USE DIRECTED Rx Instructions: USE DIRECTED (DME) FreeStyle Regina 2 Sensor Kit See Rx Instructions .Route Qty: 6 0RF Rx Instructions: change sensor every 14 days (DME) FreeStyle Regina 2 [place] Misc See Rx Instructions .ROUTE Qty: 1 0RF Rx Instructions: As directed liraglutide [Victoza 2-Kg] 0.6 mg/0.1 mL (18 mg/3 mL) Pen Injector 1.8 mg SUBCUT DAILY potassium chloride [Klor-Con M20] 20 mEq tablet,ER particles/crystals 20 meq PO DAILY nitroglycerin 0.4 mg tablet, sublingual See Rx Instructions .ROUTE .COMPLEX Rx Instructions: DISSOLVE ONE TABLET UNDER THE TONGUE EVERY 5 MINUTES NEEDED FOR CHEST PAIN. DO NOT EXCEED A TOTAL OF 3 DOSES IN 15 MINUTES - REPORT TO THE EMERGENCY ROOM IF 3 DOSES ARE NEEDED TO CONTROL PAIN furosemide 40 mg tablet 40 mg PO DAILY cholecalciferol (vitamin D3) [Vitamin D3] 25 mcg (1,000 unit) Capsule 25 mcg PO DAILY Fish Oil 120-180 mg Capsule 1 cap PO DAILY tamsulosin 0.4 mg Capsule 0.4 mg PO DAILY Qty: 90 1RF finasteride 5 mg Tablet 5 mg PO DAILY Qty: 90 3RF insulin lispro 100 unit/mL insulin pen See Rx Instructions .ROUTE .COMPLEX Rx Instructions: TAKE 15 UNITS DAILY. IF BG OVER 200, TAKE 25 UNITS. isosorbide mononitrate 60 mg tablet extended release 24 hr 60 mg PO DAILY Qty: 30 0RF carbidopa-levodopa 25-100 mg tablet 1 tab PO QID Rx Instructions: TAKE 1 TABLET BY MOUTH IN THE MORNING AND 1 TAB AT NOON AND 1 TAB AT 4 IN THE EVENING. hydrocodone-acetaminophen 5-325 mg tablet 1 tab PO Q6H PRN (Reason: pain) 5 Days Qty: 20 0RF Discontinued naproxen sodium [Aleve] 220 mg tablet 220 mg PO Q12H PRN (Reason: Pain) Discharge Orders: Discharge Order (Routine); Ordered 03/05/24 Ordered By: Aakash Faria Referrals: Roxana James FNP [Primary Care Provider] - 4-7 days (Please make follow up appointment with Roxana PEREZ following discharge from hospital. [phone]) Discharge Diet: Cardiac and Diabetic Patient Instructions: Lidocaine Patch (On the skin), Chest Pain (DC), Acute Kidney Injury (DC), Premature Ventricular Contractions (DC), Opioid Safety, Post Angiogram Home Care Instructions Activity Restrictions/Additional Instructions: Follow-up with your primary doctor for reassessment. Continue to optimize control of cardiac risk factors including diabetes, high blood pressure, weight management, include healthy diet, include 150 minutes of mild to moderate exercise in a week. Please have your primary doctor recheck your kidney function after acute kidney injury. Please stop naproxen and avoid any NSAIDs which may contribute to kidney dysfunction and may have other risks. Follow up with your primary provider for additional assessment of your right shoulder. You can use lidocaine patches for relief, or consider capsaicin, menthol cream, warm or cool pack, whichever works better. Protect it when you sleep at night. Seek medical attention in case of any worsening or new concerning symptoms. Discharge Attestations Time Spent in Discharge Care*: greater than 30 min Quality Metrics Clinical Quality Measures [ No reported AMI, CVA or VTE this stay] Coding Level of Care Code 89236 Total time (in minutes) for Discharge: 40 Diagnoses Other chest pain R07.89 Chest pain type: other chest pain
[2024-03-05 11:07] VITALS: BP 141/67; PULSE 82; RESP 24; O2SAT 94
== END 2024-03-05 12:03 | disposition home or self-care (01) ==
LOC: ER 14:15 → CSU 14:55
PROVIDERS: Internal Medicine; Admitting Provider Internal Medicine; Emergency Provider Emergency Medicine; PCP Nurse Practitioner Family; Visit Provider Internal Medicine
DX: R07.89 Other chest pain (principal); I25.10 Atherosclerotic heart disease of native coronary artery without angina pectoris; I49.3 Ventricular premature depolarization; Z95.5 Presence of coronary angioplasty implant and graft; E11.42 Type 2 diabetes mellitus with diabetic polyneuropathy; Z87.891 Personal history of nicotine dependence; E11.22 Type 2 diabetes mellitus with diabetic chronic kidney disease; I12.9 Hypertensive chronic kidney disease with stage 1 through stage 4 chronic kidney disease, or unspecified chronic kidney disease; N18.9 Chronic kidney disease, unspecified; G20.A1 Parkinson's disease without dyskinesia, without mention of fluctuations; G47.33 Obstructive sleep apnea (adult) (pediatric); N17.9 Acute kidney failure, unspecified; E78.5 Hyperlipidemia, unspecified
CPT/HCPCS: 36415; 36416; 71045; 80048; 80053; 82962; 83036; 83690; 83735; 84484; 85025; 85378; 85610; 93005; 93306; 93458; 96372; 96374; 99152; 99285; C1769; C1887; C1894; G0378; J1644; J1650; J1815; J2250; J3010; J3490; J7030; Q0163; Q9967

== ENCOUNTER 2024-03-08 07:33 | Emergency (ER) | payer MEDICARE, MEDICAID, SELFPAY ==
[2024-03-08 07:33] VITALS: BP 161/71; PULSE 87; RESP 18; TEMP 36.7; O2SAT 91; BMI 30.5
--- NOTE | 2024-03-08 07:37 | XRR_ITS ---
PROCEDURE INFORMATION: Exam: XR Chest Exam date and time: 03/08/2024 7:45 AM Age: 68 years old Clinical indication: Shortness of breath; Additional info: SOB TECHNIQUE: Imaging protocol: Radiologic exam of the chest. Views: 1 view. COMPARISON: CR XR chest 1V portable [id number] 03/03/2024 1:35 PM FINDINGS: Lungs: Discoid atelectasis bilaterally with more global hypoventilatory changes in each lower lobe. A superimposed infiltrate is not excluded. Cardiac decompensation is probably present. Pleural spaces: Unremarkable. No pleural effusion. No pneumothorax. Heart/Mediastinum: See Vasculature finding. Vasculature: Mild cardiomegaly and uncoiling of the thoracic aorta each accentuated by the AP positioning. Bones/joints: Unremarkable. XR/XR chest 1V portable [id number] IMPRESSION: Mild bi lateral opacities.
--- NOTE | 2024-03-08 07:38 | ECG_ITS ---
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 Measurements Intervals [place] Rate: 83 P: 44 DC: 192 QRS: -23 QRSD: 80 T: 68 QT: 376 QTc: 443 Interpretive Statements SINUS RHYTHM WITH FREQUENT VENTRICULAR PREMATURE COMPLEXES BORDERLINE LEFT AXIS DEVIATION [QRS AXIS < -20] NONSPECIFIC T-WAVE ABNORMALITY ABNORMAL RHYTHM ECG Compared to ECG 03/03/2024 18:29:57 T-wave abnormality now present Myocardial infarct finding no longer present Electronically Signed On 03-09-2024 18:50:51 MASONRY SUPERVISOR by Lizeth Veliz M.D. [email or web address]
--- NOTE | 2024-03-08 07:38 | ED_ITS ---
HPI - SOB/Dyspnea 2 General: Chief Complaint: Shortness of Breath/Dyspnea Stated Complaint: Resp Distress, Chest Pain Time Seen by Provider: 03/08/24 07:33 Source: patient and EMS Mode of arrival: EMS Limitations: no limitations History of Present Illness: HPI Narrative: 68-year-old male with a history of hyper tension diabetes CHF states he had woke up this feeling short of breath he states that that is improved he states his symptoms are since resolved no dyspnea currently denies any chest pain he recently was admitted last week and had a normal cardiac cath. He denies any cough or fever. Associated symptoms: Deny abdominal pain, chest pain, fever(s), nausea or vomiting Related Data Home Medications Medication Instructions Recorded Confirmed aspirin 81 mg tablet,delayed 81 mg PO QAM 05/10/19 03/08/24 release (Adult Low Dose Aspirin) pantoprazole 40 mg tablet,delayed 40 mg PO DAILY 05/10/19 03/08/24 release liraglutide 0.6 mg/0.1 mL (18 mg/3 1.8 mg SUBCUT DAILY 07/20/19 03/08/24 mL) subcutaneous pen injector (Victoza 2-Kg) cholecalciferol (vitamin D3) 25 25 mcg PO DAILY 10/10/22 03/08/24 mcg (1,000 unit) capsule (Vitamin D3) docosahexaenoic acid (dha)-epa 120 1 cap PO DAILY 10/10/22 03/08/24 mg-180 mg capsule (Fish Oil) atorvastatin 40 mg tablet 40 mg PO QPM 10/16/22 03/08/24 insulin detemir U-100 100 unit/mL 90 unit SUBCUT BID 01/21/23 03/08/24 (3 mL) subcutaneous pen (Levemir FlexTouch U-100 Insulin) insulin lispro 100 unit/mL See Rx Instructions .Route .COMPLEX 06/16/23 03/08/24 subcutaneous pen nitroglycerin 0.4 mg sublingual See Rx Instructions .Route .COMPLEX 07/27/23 03/08/24 tablet potassium chloride 20 mEq 20 meq PO DAILY 07/27/23 03/08/24 tablet,extended release(part/cryst) (Klor-Con M) furosemide 40 mg tablet 40 mg PO DAILY 11/16/23 03/08/24 carbidopa 25 mg-levodopa 100 mg 1 tab PO QID 03/01/24 03/08/24 tablet hydrocodone 5 mg-acetaminophen 325 1 tab PO Q6H 03/08/24 03/08/24 mg tablet Previous Rx's Medication Instructions Recorded clopidogrel 75 mg tablet 75 mg PO DAILY 3 months #90 tabs 11/10/19 metoprolol tartrate 50 mg tablet 50 mg PO BID #180 tabs 11/10/19 finasteride 5 mg tablet 5 mg PO DAILY #90 tabs 10/11/22 tamsulosin 0.4 mg capsule 0.4 mg PO DAILY #90 caps 10/11/22 isosorbide mononitrate 60 mg 60 mg PO DAILY #30 tabs 06/16/23 tablet,extended release 24 hr flash glucose sensor (FreeStyle #6 ea 01/27/24 Regina 2 Sensor kit) flash glucose scanning reader #1 ea 02/02/24 (FreeStyle Regina 2 [place]) flash glucose sensor (FreeStyle #6 ea 02/02/24 Regina 2 Sensor kit) lidocaine 5 % topical patch 1 patch topical [id number] #14 ea 03/05/24 Allergies Allergy/AdvReac Type Severity Reaction Status Date / Time No Known Allergies Allergy Verified 03/03/24 13:30 Review of Systems 2 Const: Denies: fever(s), chills, body aches or change in appetite Eyes: Denies: blurry vision or eye discomfort ENMT: Denies: throat pain or dental pain Card: Denies: chest pain Resp: Reports: dyspnea GI: Denies: abdominal pain, nausea, vomiting or diarrhea Musc: Denies: neck pain or back pain Skin/Breast: Denies: rash Neuro: Denies: headache(s) PFSH ED 2 PFSH: Medical History CÉSAR (obstructive sleep apnea) Hyperlipidemia HTN (hypertension) ASHD (arteriosclerotic heart disease) Diabetes Hyperglycemia JULIET (acute kidney injury) Elbow contusion Dystonic tremor Acute on chronic renal failure Urinary tract infection Urinary retention Acute renal failure Ophthalmoplegia Parkinson disease Diabetic neuropathy associated with type 2 diabetes mellitus Essential tremor Cough Exposure to COVID-19 virus Chronic diarrhea Diabetic foot ulcer CKD (chronic kidney disease) (~10/12/20) Obesity Myocardial infarction Surgical History S/P eye surgery Status post colonoscopy (12/24/20) sigmoid polyp Status post amputation of toe S/P angioplasty with stent Family History Mother CAD (coronary artery disease) Diabetes Social History Smoking and tobacco/nicotine status: former use of tobacco/nicotine Alcohol intake: former Substance/Drug Use: never Lives independently: Yes Household members: other Details: DOG Marital status: service: No Current occupational status: disabled 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 Physical Exam 2 Const: COMMON NORMALS: no acute distress, patient oriented x3 and healthy appearing HENMT: COMMON NORMALS: normocephalic and atraumatic HEAD & SCALP: n ormocephalic and atraumatic Eye: COMMON NORMALS: Equal, round and reactive pupils present and EOMs intact bilaterally PUPIL: Yes Equal, round and reactive pupils present Neck/C-Spine: COMMON NORMALS: full ROM and supple Chest: COMMONS NORMALS: normal inspection of the chest and normal palpation of entire chest wall Resp: COMMON NORMALS: normal respiratory effort, No retractions, No use of accessory muscles and clear to auscultation bilaterally AUSCULTATION: clear to auscultation bilaterally Cardio: COMMON NORMALS: regular rate, regular rhythm and No murmurs present (Cardio) RATE: regular rate RHYTHM: regular rhythm GI: COMMON NORMALS: Normal to inspection, nondistended, normoactive bowel sounds present, Soft to palpation, non-tender and no masses PALPATION: Yes Soft to palpation Extremity: COMMON NORMALS: normal to inspection and full ROM Neuro: COMMON NORMALS: patient oriented x3, moves all extremities and no focal motor deficits Psych: COMMON NORMALS: mental status grossly normal, Normal thought process present and cooperative THOUGHT PROCESS: Normal thought process present Skin: COMMON NORMALS: no rashes or lesions noted and no wounds GENERAL SKIN EXAM: no rashes or lesions noted Course 2 Vital Signs: Vital signs: Vital Signs Temperature 98.1 F 03/08/24 07:33 Pulse Rate 87 03/08/24 07:33 Respiratory Rate 18 03/08/24 07:33 Blood Pressure 161/71 03/08/24 07:33 Pulse Oximetry 91 03/08/24 07:33 Oxygen Delivery Me thod Room Air 03/08/24 07:33 MDM - SOB/Dyspnea Medical Decision Making Patient presents here with dyspnea likely from CHF he has been in no distress here no requiring oxygen did give him a dose of Lasix is continue his Lasix at home he is follow-up with PCP and return if worsening he understands agrees to plan Medical Records I reviewed the patient's medical records. Lab Data I reviewed the patient's lab results. 03/08/24 07:07 03/08/24 07:07 Labs/Radiology: Radiology Impressions Chest X-Ray 03/08/24 07:37 IMPRESSION: Mild bi lateral opacities. Laboratory Results WBC 7.94 10^3/uL (3.29-11.43) 03/08/24 07:07 RBC 4.46 10^6/uL (3.85-5.65) 03/08/24 07:07 Hgb 13.00 g/dL (11.27-16.99) 03/08/24 07:07 Hct 39.3 % (37-53) 03/08/24 07:07 MCV 88.1 fl (82-101) 03/08/24 07:07 MCH 29.1 pg (27-33) 03/08/24 07:07 MCHC 33.1 g/dL (30-55) 03/08/24 07:07 RDW 14.5 % (12.1-15.1) 03/08/24 07:07 Plt Count 166 10^3/cmm (157-399) 03/08/24 07:07 MPV 10.8 fL (7.4-10.4) H 03/08/24 07:07 Neut % (Auto) 74.5 % 03/08/24 07:07 Lymph % (Auto) 17.4 % 03/08/24 07:07 [place] % (Auto) 5.7 % 03/08/24 07:07 Eos % (Auto) 1.5 % 03/08/24 07:07 Baso % (Auto) 0.5 % 03/08/24 07:07 Neut # (Auto) 5.92 10^3/uL (1.8-7.7) 03/08/24 07:07 Lymph # (Auto) 1.4 10^3/uL (0.8-4.8) 03/08/24 07:07 [place] # (Auto) 0.5 10^3/uL (0.2-0.9) 03/08/24 07:07 Eos # (Auto) 0.1 10^3/uL (0.0-0.8) 03/08/24 07:07 Baso # (Auto) 0.0 10^3/uL (0.0-0.1) 03/08/24 07:07 Nucleated RBC % (auto) 0 % 03/08/24 07:07 Nucleated RBCs # 0.0 /100WBC 03/08/24 07:07 Sodium 138 mmol/L (136-145) 03/08/24 07:07 Potassium 3.7 mmol/L (3.5-5.1) 03/08/24 07:07 Chloride 101 mmol/L (98-107) 03/08/24 07:07 Carbon Dioxide 27 mmol/L (22-29) 03/08/24 07:07 Anion Gap 13.7 (5-19) 03/08/24 07:07 BUN 22 mg/dL (8-23) 03/08/24 07:07 Creatinine 1.1 mg/dL (0.7-1.2) 03/08/24 07:07 GFR Calculation 66.6 mL/min (90-130) L 03/08/24 07:07 Glucose 97 mg/dL (65-115) 03/08/24 07:07 Calculated Osmolality 289 mOsm/kg (285-295) 03/08/24 07:07 Calcium 9.1 mg/dL (8.5-10.5) 03/08/24 07:07 Total Bilirubin 0.7 mg/dL (0.15-1.2) 03/08/24 07:07 AST 24 U/L (0-40) 03/08/24 07:07 ALT 21 U/L (0-41) 03/08/24 07:07 Alkaline Phosphatase 97 U/L (40-130) 03/08/24 07:07 NT-Pro-B Natriuret Pep 1861 pg/mL (0-125) H 03/08/24 07:07 Total Protein 7.1 g/dL (6.6-8.7) 03/08/24 07:07 Albumin 4.3 g/dL (3.5-5.2) 03/08/24 07:07 Globulin 2.8 g/dL (1.3-4.6) 03/08/24 07:07 All radiology interpretation(s) finalized by discharge EKG Data EKG 1: I personally reviewed and interpreted this EKG as follows: EKG Interpretation Date: 03/08/24 EKG interpretation time: 07:38 Interpretation: nsr hr [address] elevation qrs 80 [id number] Discharge Plan Discharge Patient Disposition: Home Clinical Impression: Congestive heart failure, Shortness of breath Condition: Stable Prescriptions: No Action aspirin [Adult Low Dose Aspirin] 81 mg tablet,delayed release (DR/EC) 81 mg PO QAM pantoprazole 40 mg tablet,delayed release (DR/EC) 40 mg PO DAILY atorvastatin 40 mg tablet 40 mg PO QPM Levemir FlexTouch U100 Insulin 100 unit/mL (3 mL) insulin pen 90 unit SUBCUT BID clopidogrel 75 mg tablet 75 mg PO DAILY 90 Days Qty: 90 3RF metoprolol tartrate 50 mg tablet 50 mg PO BID Qty: 180 3RF (DME) FreeStyle Regina 2 Sensor Kit See Rx Instructions .ROUTE .COMPLEX Qty: 6 2RF Dose Instruction: USE DIRECTED Rx Instructions: USE DIRECTED (DME) FreeStyle Regina 2 Sensor Kit See Rx Instructions .Route Qty: 6 0RF Rx Instructions: change sensor every 14 days (DME) FreeStyle Regina 2 [place] Misc See Rx Instructions .ROUTE Qty: 1 0RF Rx Instructions: As directed liraglutide [Victoza 2-Kg] 0.6 mg/0.1 mL (18 mg/3 mL) Pen Injector 1.8 mg SUBCUT DAILY potassium chloride [Klor-Con M20] 20 mEq tablet,ER particles/crystals 20 meq PO DAILY nitroglycerin 0.4 mg tablet, sublingual See Rx Instructions .ROUTE .COMPLEX Rx Instructions: DISSOLVE ONE TABLET UNDER THE TONGUE EVERY 5 MINUTES NEEDED FOR CHEST PAIN. DO NOT EXCEED A TOTAL OF 3 DOSES IN 15 MINUTES - REPORT TO THE EMERGENCY ROOM IF 3 DOSES ARE NEEDED TO CONTROL PAIN furosemide 40 mg tablet 40 mg PO DAILY lidocaine 5 % Adhesive Patch,Medicated 1 patch topical [id number] Qty: 14 1RF hydrocodone-acetaminophen 5-325 mg tablet 1 tab PO Q6H cholecalciferol (vitamin D3) [Vitamin D3] 25 mcg (1,000 unit) Capsule 25 mcg PO DAILY Fish Oil 120-180 mg Capsule 1 cap PO DAILY tamsulosin 0.4 mg Capsule 0.4 mg PO DAILY Qty: 90 1RF finasteride 5 mg Tablet 5 mg PO DAILY Qty: 90 3RF insulin lispro 100 unit/mL insulin pen See Rx Instructions .ROUTE .COMPLEX Rx Instructions: TAKE 15 UNITS DAILY. IF BG OVER 200, TAKE 25 UNITS. isosorbide mononitrate 60 mg tablet extended release 24 hr 60 mg PO DAILY Qty: 30 0RF carbidopa-levodopa 25-100 mg tablet 1 tab PO QID Rx Instructions: TAKE 1 TABLET BY MOUTH IN THE MORNING AND 1 TAB AT NOON AND 1 TAB AT 4 IN THE EVENING. Discharge Orders: Discharge ED (Routine); Ordered 03/08/24 Ordered By: Abhishek Fowler Referrals: Roxana James FNP [Primary Care Provider] - Discharge Diet: Advance as tolerated Discharge Activity: Resume usual activity Patient Instructions: Heart Failure (ED) Coding Level of Care Code ED Territory Development Manager for Hugo Garcia
[2024-03-08 07:46] LABS: Basophils % 0.5 %; Eosinophils # 0.1 10^3/uL (0.0-0.8); Eosinophils % 1.5 %; Hematocrit 39.3 % (37-53); Lymphocytes # 1.4 10^3/uL (0.8-4.8); Lymphocytes % 17.4 %; Mean Corpuscular HGB Conc 33.1 g/dL (30-55); Mean Corpuscular Hemoglobin 29.1 pg (27-33); Mean Corpuscular Volume 88.1 fl (82-101); Mean Platelet Volume 10.8 fL (7.4-10.4); Monocytes # 0.5 10^3/uL (0.2-0.9); Monocytes % 5.7 %; Neutrophils # 5.92 10^3/uL (1.8-7.7); Neutrophils % 74.5 %; Nucleated Red Blood Cells % 0 %; Platelet Count 166 10^3/cmm (157-399); Red Blood Count 4.46 10^6/uL (3.85-5.65); Red Cell Distribution Width 14.5 % (12.1-15.1); White Blood Count 7.94 10^3/uL (3.29-11.43)
[2024-03-08 08:12] LABS: Alanine Aminotransferase 21 U/L (0-41); Albumin Level 4.3 g/dL (3.5-5.2); Alkaline Phosphatase 97 U/L (40-130); Anion Gap 13.7 (5-19); Aspartate Amino Transferase 24 U/L (0-40); Blood Urea Nitrogen 22 mg/dL (8-23); Calcium 9.1 mg/dL (8.5-10.5); Carbon Dioxide 27 mmol/L (22-29); Chloride 101 mmol/L (98-107); Creatinine Clr Calc Pharmacy 70.4625; Globulin 2.8 g/dL (1.3-4.6); Glomerular Filtration Rate 66.6 mL/min (90-130); Glucose 97 mg/dL (65-115); NT Pro B Type Natriuretic Pept 1861 pg/mL (0-125); Osmolality Calculated 289 mOsm/kg (285-295); Potassium 3.7 mmol/L (3.5-5.1); Sodium 138 mmol/L (136-145); Total Bilirubin 0.7 mg/dL (0.15-1.2); Total Protein 7.1 g/dL (6.6-8.7)
[2024-03-08 08:30] VITALS: BP 153/95; PULSE 82; RESP 20; O2SAT 89
[2024-03-08] MEDS: FUROsemide 10 mg/mL SDV 10mL 60 MG IVP (08:37)
[2024-03-08 09:00] VITALS: BP 134/57; PULSE 103; O2SAT 92
[2024-03-08 09:35] VITALS: BP 116/75; PULSE 81; RESP 15; O2SAT 93
[2024-03-08 09:40] VITALS: BP 116/75; PULSE 76; O2SAT 95
== END 2024-03-08 09:45 | disposition home or self-care (01) ==
PROVIDERS: Emergency Provider Emergency Medicine; PCP Nurse Practitioner Family
DX: I13.0 Hypertensive heart and chronic kidney disease with heart failure and stage 1 through stage 4 chronic kidney disease, or unspecified chronic kidney disease (principal); N18.9 Chronic kidney disease, unspecified; I50.9 Heart failure, unspecified; R06.02 Shortness of breath; Z79.82 Long term (current) use of aspirin; Z79.4 Long term (current) use of insulin; Z79.02 Long term (current) use of antithrombotics/antiplatelets; Z87.891 Personal history of nicotine dependence; E11.22 Type 2 diabetes mellitus with diabetic chronic kidney disease; E78.5 Hyperlipidemia, unspecified; I25.2 Old myocardial infarction
CPT/HCPCS: 71045; 80053; 83880; 85025; 93005; 96374; 99285; J1940

== ENCOUNTER 2024-04-16 13:44 | Emergency (ER) | payer MEDICARE, MEDICAID, SELFPAY ==
[2024-04-16 13:46] VITALS: BP 147/73; PULSE 103; TEMP 36.9; O2SAT 94
--- NOTE | 2024-04-16 13:54 | ED_ITS ---
HPI - Fall 2 General: Chief Complaint: Fall Stated Complaint: fall Time Seen by Provider: 04/16/24 13:46 History of Present Illness: 68-year-old man with a history of obstru ctive sleep apnea, hyperlipidemia, hypertension, coronary artery disease, congestive heart failure, Parkinson's disease and diabetes who presents the emergency room by ambulance after having had a couple of falls. He says he felt weak and slid out of bed and had difficulty getting up. He did not have any injuries. No head injury. He says he feels fine now. May be just slightly weak. No chest pain. No altered mental status. No focal motor deficits. No fevers. No cough. No abdominal pain. No worsening lower extremity swelling. He says he took the ambulance to the emergency room because he wanted to be checked out . Related Data Home Medications Medication Instructions Recorded Confirmed aspirin 81 mg tablet,delayed 81 mg PO QAM 05/10/19 04/16/24 release (Adult Low Dose Aspirin) liraglutide 0.6 mg/0.1 mL (18 mg/3 1.8 mg SUBCUT DAILY 07/20/19 04/16/24 mL) subcutaneous pen injector (Victoza 2-Kg) cholecalciferol (vitamin D3) 25 25 mcg PO DAILY 10/10/22 04/16/24 mcg (1,000 unit) capsule (Vitamin D3) docosahexaenoic acid (dha)-epa 120 1 cap PO DAILY 10/10/22 04/16/24 mg-180 mg capsule (Fish Oil) atorvastatin 40 mg tablet 40 mg PO QPM 10/16/22 04/16/24 insulin detemir U-100 100 unit/mL 90 unit SUBCUT BID 01/21/23 04/16/24 (3 mL) subcutaneous pen (Levemir FlexTouch U-100 Insulin) insulin lispro 100 unit/mL See Rx Instructions .Route .COMPLEX 06/16/23 04/16/24 subcutaneous pen nitroglycerin 0.4 mg sublingual See Rx Instructions .Route .COMPLEX 07/27/23 04/16/24 tablet potassium chloride 20 mEq 20 meq PO DAILY 07/27/23 04/16/24 tablet,extended release(part/cryst) (Klor-Con M) carbidopa 25 mg-levodopa 100 mg 1 tab PO QID 03/01/24 04/16/24 tablet prednisolone acetate 1 % eye 1 drp ophthalmic (eye) QID 04/16/24 04/16/24 drops,suspension Previous Rx's Medication Instructions Recorded clopidogrel 75 mg tablet 75 mg PO DAILY 3 months #90 tabs 11/10/19 metoprolol tartrate 50 mg tablet 50 mg PO BID #180 tabs 11/10/19 finasteride 5 mg tablet 5 mg PO DAILY #90 tabs 10/11/22 tamsulosin 0.4 mg capsule 0.4 mg PO DAILY #90 caps 10/11/22 isosorbide mononitrate 60 mg 60 mg PO DAILY #30 tabs 06/16/23 tablet,extended release 24 hr flash glucose sensor (FreeStyle #6 ea 01/27/24 Regina 2 Sensor kit) flash glucose scanning reader #1 ea 02/02/24 (FreeStyle Regina 2 [place]) flash glucose sensor (FreeStyle #6 ea 02/02/24 Regina 2 Sensor kit) Allergies Allergy/AdvReac Type Severity Reaction Status Date / Time No Known Allergies Allergy Verified 03/03/24 13:30 Review of Systems 2 Narrative: Constitutional symptoms: Negative except as documented in HPI. Skin symptoms: Negative except as documented in HPI. Eye symptoms: Negative except as documented in HPI. ENMT symptoms: Negative except as documented in HPI. Respiratory symptoms: Negative except as documented in HPI. Cardiovascular symptoms: Negative except as documented in HPI. Gastrointestinal symptoms: Negative except as documented in HPI. Genitourinary symptoms: Negative except as documented in HPI. Musculoskeletal symptoms: Negative except as documented in HPI. Neurologic symptoms: Negative except as documented in HPI. Psychiatric symptoms: Negative except as documented in HPI. Endocrine symptoms: Negative except as documented in HPI. PFSH ED 2 PFSH: Medical History CÉSAR (obstructive sleep apnea) Hyperlipidemia HTN (hypertension) ASHD (arteriosclerotic heart disease) Diabetes Hyperglycemia JULIET (acute kidney injury) Elbow contusion Dystonic tremor Acute on chronic renal failure Urinary tract infection Urinary retention Acute renal failure Ophthalmoplegia Parkinson disease Diabetic neuropathy associated with type 2 diabetes mellitus Essential tremor Cough Exposure to COVID-19 virus Chronic diarrhea Diabetic foot ulcer CKD (chronic kidney disease) (~10/12/20) Obesity Myocardial infarction Surgical History S/P eye surgery Status post colonoscopy (12/24/20) sigmoid polyp Status post amputation of toe S/P angioplasty with stent Family History Mother CAD (coronary artery disease) Diabetes Social History Smoking and tobacco/nicotine status: former use of tobacco/nicotine Alcohol intake: former Substance/Drug Use: never Lives independently: Yes Household members: other Details: DOG Marital status: service: No Current occupational status: disabled 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 Skin: Warm, dry. Head: Normocephalic, atraumatic. Neck: Supple, trachea midline. Eye: Extraocular movements are intact. Ears, nose, mouth and throat: mucosa moist. Cardiovascular: Regular, Normal peripheral perfusion. Respiratory: Lungs are clear to auscultation, respirations are non-labored, breath sounds are equal, Symmetrical chest wall expansion. Gastrointestinal: Soft, Nontender, Non distended Musculoskeletal: Normal ROM, no deformity. Neurological: Alert and oriented, No focal neurological deficit observed. Psychiatric: Cooperative, appropriate mood & affect. Course 2 Vital Signs: Vital signs: Vital Signs Temperature 98.4 F 04/16/24 13:46 Pulse Rate 103 H 04/16/24 13:46 Blood Pressure 147/73 04/16/24 13:46 Pulse Oximetry 94 04/16/24 13:46 MDM - Fall Medical Decision Making Medical decision making: Differential diagnosis for patient presenting with generalized weakness including but not limited to and based on the above HPI, review of systems and physical exam: Sepsis. Dehydration. Renal failure. Electrolyte abnormalities. Anemia. Congestive heart failure. Hypotension. Coronary syndrome. Hepatitis. Cirrhosis. Infections such as pneumonia, urinary tract infection, Tick bourne illness, Cellulitis, Viral infections including influenza and Covid-19. Workup: labwork and lab/exam driven imaging ordered to evaluate, rule in and rule out above pathologies. EKG: Time 1359. Rate 101. Sinus tachycardia, No ST-T changes, no ectopy, normal WI & QRS intervals, This was reviewed and interpreted by myself the ER physician at 1403. Chest x-ray: No acute process. No infiltrate. No pneumothorax. This was reviewed and interpreted by myself the emergency room physician. I also reviewed the radiology report. Improvement in pulmonary congestion as compared to previous x-ray. Lab Review: Laboratory results were reviewed and interpreted by myself the emergency room physician. Lab works unremarkable. No leukocytosis. No anemia. Renal function is stable at 31 and 1.4. This is at the upper edge of his baseline. I reviewed the patient's medical record. Reexamination: Patient remained stable. No increased work of breathing. No altered mental status. No focal motor deficits. Assessment and plan: Generalized weakness Falls without injury - Discharged home - Discussed plan with patient. Answered any questions. - Evaluation and treatment of this problem were appropriate in the emergency setting. Lab Data 04/16/24 14:39 04/16/24 14:39 Laboratory Results WBC 10.29 10^3/uL (3.29-11.43) 04/16/24 14:39 RBC 4.88 10^6/uL (3.85-5.65) 04/16/24 14:39 Hgb 13.90 g/dL (11.27-16.99) 04/16/24 14:39 Hct 42.3 % (37-53) 04/16/24 14:39 MCV 86.7 fl (82-101) 04/16/24 14:39 MCH 28.5 pg (27-33) 04/16/24 14:39 MCHC 32.9 g/dL (30-55) 04/16/24 14:39 RDW 13.7 % (12.1-15.1) 04/16/24 14:39 Plt Count 185 10^3/cmm (157-399) 04/16/24 14:39 MPV 10.8 fL (7.4-10.4) H 04/16/24 14:39 Neut % (Auto) 90.3 % 04/16/24 14:39 Lymph % (Auto) 3.0 % 04/16/24 14:39 Collier % (Auto) 5.2 % 04/16/24 14:39 Eos % (Auto) 0.8 % 04/16/24 14:39 Baso % (Auto) 0.4 % 04/16/24 14:39 Neut # (Auto) 9.30 10^3/uL (1.8-7.7) H 04/16/24 14:39 Lymph # (Auto) 0.3 10^3/uL (0.8-4.8) L 04/16/24 14:39 Collier # (Auto) 0.5 10^3/uL (0.2-0.9) 04/16/24 14:39 Eos # (Auto) 0.1 10^3/uL (0.0-0.8) 04/16/24 14:39 Baso # (Auto) 0.0 10^3/uL (0.0-0.1) 04/16/24 14:39 Nucleated RBC % (auto) 0 % 04/16/24 14:39 Nucleated RBCs # 0.0 /100WBC 04/16/24 14:39 Sodium 138 mmol/L (136-145) 04/16/24 14:39 Potassium 3.9 mmol/L (3.5-5.1) 04/16/24 14:39 Chloride 100 mmol/L (98-107) 04/16/24 14:39 Carbon Dioxide 21 mmol/L (22-29) L 04/16/24 14:39 Anion Gap 20.9 (5-19) H 04/16/24 14:39 BUN 31 mg/dL (8-23) H 04/16/24 14:39 Creatinine 1.4 mg/dL (0.7-1.2) H 04/16/24 14:39 GFR Calculation 50.4 mL/min (90-130) L 04/16/24 14:39 Glucose 197 mg/dL (65-115) H 04/16/24 14:39 Calculated Osmolality 298 mOsm/kg (285-295) H 04/16/24 14:39 Calcium 8.7 mg/dL (8.5-10.5) 04/16/24 14:39 Total Bilirubin 1.0 mg/dL (0.15-1.2) 04/16/24 14:39 AST 20 U/L (0-40) 04/16/24 14:39 ALT 28 U/L (0-41) 04/16/24 14:39 Alkaline Phosphatase 81 U/L (40-130) 04/16/24 14:39 Troponin T Baseline 27 ng/L (0-15) H 04/16/24 14:39 NT-Pro-B Natriuret Pep 896 pg/mL (0-125) H 04/16/24 14:39 Total Protein 6.6 g/dL (6.6-8.7) 04/16/24 14:39 Albumin 4.3 g/dL (3.5-5.2) 04/16/24 14:39 Globulin 2.3 g/dL (1.3-4.6) 04/16/24 14:39 Urine Color Yellow (Yellow) 04/16/24 15:25 Urine Appearance Clear (CLEAR) 04/16/24 15:25 Urine pH 5.0 (5-7) 04/16/24 15:25 Ur Specific Elaine 1.023 (1.005-1.030) 04/16/24 15:25 Urine Protein 3+ (Negative) A 04/16/24 15:25 Urine Glucose (UA) Trace (Normal) H 04/16/24 15:25 Urine Ketones Negative (Negative) 04/16/24 15:25 Urine Blood Negative (Negative) 04/16/24 15:25 Urine Nitrate Negative (Negative) 04/16/24 15:25 Urine Bilirubin Negative (Negative) 04/16/24 15:25 Urine Urobilinogen 0.2 mg/dL (Negative) 04/16/24 15:25 Ur Leukocyte Esterase Trace (Negative) A 04/16/24 15:25 Urine RBC 0-2 /hpf (0-2) 04/16/24 15:25 Urine WBC 0-5 /hpf (0-5) 04/16/24 15:25 Ur Squamous Epith Cells 0-5 /hpf (0-5) 04/16/24 15:25 Amorphous Sediment Not Reportable 04/16/24 15:25 Urine Bacteria None seen /hpf (NONE) 04/16/24 15:25 Hyaline Casts 13.22 /lpf 04/16/24 15:25 All radiology interpretation(s) finalized by discharge Discharge Plan Discharge Patient Disposition: Home Clinical Impression: Weakness, Fall Condition: Stable Prescriptions: No Action aspirin [Adult Low Dose Aspirin] 81 mg tablet,delayed release (DR/EC) 81 mg PO QAM atorvastatin 40 mg tablet 40 mg PO QPM Levemir FlexTouch U100 Insulin 100 unit/mL (3 mL) insulin pen 90 unit SUBCUT BID clopidogrel 75 mg tablet 75 mg PO DAILY 90 Days Qty: 90 3RF metoprolol tartrate 50 mg tablet 50 mg PO BID Qty: 180 3RF (DME) FreeStyle Regina 2 Sensor Kit See Rx Instructions .ROUTE .COMPLEX Qty: 6 2RF Dose Instruction: USE DIRECTED Rx Instructions: USE DIRECTED (DME) FreeStyle Regina 2 Sensor Kit See Rx Instructions .Route Qty: 6 0RF Rx Instructions: change sensor every 14 days (DME) FreeStyle Regina 2 [place] Misc See Rx Instructions .ROUTE Qty: 1 0RF Rx Instructions: As directed liraglutide [Victoza 2-Kg] 0.6 mg/0.1 mL (18 mg/3 mL) Pen Injector 1.8 mg SUBCUT DAILY potassium chloride [Klor-Con M20] 20 mEq tablet,ER particles/crystals 20 meq PO DAILY nitroglycerin 0.4 mg tablet, sublingual See Rx Instructions .ROUTE .COMPLEX Rx Instructions: DISSOLVE ONE TABLET UNDER THE TONGUE EVERY 5 MINUTES NEEDED FOR CHEST PAIN. DO NOT EXCEED A TOTAL OF 3 DOSES IN 15 MINUTES - REPORT TO THE EMERGENCY ROOM IF 3 DOSES ARE NEEDED TO CONTROL PAIN prednisolone acetate 1 % drops,suspension 1 drp ophthalmic (eye) QID cholecalciferol (vitamin D3) [Vitamin D3] 25 mcg (1,000 unit) Capsule 25 mcg PO DAILY Fish Oil 120-180 mg Capsule 1 cap PO DAILY tamsulosin 0.4 mg Capsule 0.4 mg PO DAILY Qty: 90 1RF finasteride 5 mg Tablet 5 mg PO DAILY Qty: 90 3RF insulin lispro 100 unit/mL insulin pen See Rx Instructions .ROUTE .COMPLEX Rx Instructions: TAKE 15 UNITS DAILY. IF BG OVER 200, TAKE 25 UNITS. isosorbide mononitrate 60 mg tablet extended release 24 hr 60 mg PO DAILY Qty: 30 0RF carbidopa-levodopa 25-100 mg tablet 1 tab PO QID Rx Instructions: TAKE 1 TABLET BY MOUTH IN THE MORNING AND 1 TAB AT NOON AND 1 TAB AT 4 IN THE EVENING. Discharge Orders: Discharge ED (Routine); Ordered 04/16/24 Ordered By: Martha Connolly Referrals: Roxana James, CORPORATE CONCIERGE [Primary Care Provider] - Discharge Diet: Usual diet Discharge Activity: Increase activity as tolerated Patient Instructions: Fall Prevention for Older Adults (ED), Weakness (ED), Opioid Safety, Pain Management Activity Restrictions/Additional Instructions: Thank you for choosing [facility] for your healthcare needs today. Please realize this is an emergency room and that we are providing you with a medical screening exam and this may not be complete and all inclusive of all the testing and or work up that you may need to determine your ailment or severity of your illness. You have been screened and evaluated and felt safe for discharge. Health conditions do change or evolve sometimes and as such it is important that you follow up with your Primary Doctor to be re checked, 3-5 days is a general good time frame for follow up. You are always welcome to return to the ED for re assessment if your symptoms are worsening or you have new concerns Coding Level of Care Code ED Painter Decorator for Hugo Garcia
--- NOTE | 2024-04-16 13:55 | XRR_ITS ---
PROCEDURE INFORMATION: Exam: XR Chest Exam date and time: 04/16/2024 2:40 PM Age: 68 years old Clinical indication: Prior surgery; Surgery date: 6+ months; Surgery type: Cardiac stents x 6; Patient HX: Weakness; HX mult mi with cardiac stent TECHNIQUE: Imaging protocol: Radiologic exam of the chest. Views: 1 view. COMPARISON: CR XR chest 1V portable [id number] 03/08/2024 7:45 AM FINDINGS: Lungs: Unremarkable. No consolidation. Pleural spaces: Unremarkable. No pleural effusion. No pneumothorax. Heart/Mediastinum: Unremarkable. No cardiomegaly. Bones/joints: Unremarkable. XR/XR chest 1V portable [id number] IMPRESSION: No acute findings.
--- NOTE | 2024-04-16 13:56 | ECG_ITS ---
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 Measurements Intervals [place] Rate: 101 P: 28 NV: 225 QRS: -47 QRSD: 80 T: 66 QT: 340 QTc: 442 Interpretive Statements SINUS TACHYCARDIA WITH FIRST DEGREE AV BLOCK LEFT AXIS DEVIATION [QRS AXIS < -30] PATTERN CONSISTENT WITH PULMONARY DISEASE NONSPECIFIC T-WAVE ABNORMALITY Compared to ECG 03/08/2024 07:38:28 First degree AV block now present Sinus rhythm no longer present Ventricular premature complex(es) no longer present T-wave abnormality still present Electronically Signed On 04-16-2024 21:20:46 PROPERTY STAFF ACCOUNTANT by Lizeth Veliz M.D. [email or web address]
[2024-04-16 14:48] LABS: Basophils % 0.4 %; Eosinophils # 0.1 10^3/uL (0.0-0.8); Eosinophils % 0.8 %; Hematocrit 42.3 % (37-53); Lymphocytes # 0.3 10^3/uL (0.8-4.8); Mean Corpuscular HGB Conc 32.9 g/dL (30-55); Mean Corpuscular Hemoglobin 28.5 pg (27-33); Mean Corpuscular Volume 86.7 fl (82-101); Mean Platelet Volume 10.8 fL (7.4-10.4); Monocytes # 0.5 10^3/uL (0.2-0.9); Monocytes % 5.2 %; Neutrophils % 90.3 %; Nucleated Red Blood Cells % 0 %; Platelet Count 185 10^3/cmm (157-399); Red Blood Count 4.88 10^6/uL (3.85-5.65); Red Cell Distribution Width 13.7 % (12.1-15.1); White Blood Count 10.29 10^3/uL (3.29-11.43)
[2024-04-16 15:08] LABS: Troponin(5th) Baseline 27 ng/L (0-15)
[2024-04-16 15:17] LABS: Alanine Aminotransferase 28 U/L (0-41); Albumin Level 4.3 g/dL (3.5-5.2); Alkaline Phosphatase 81 U/L (40-130); Anion Gap 20.9 (5-19); Aspartate Amino Transferase 20 U/L (0-40); Blood Urea Nitrogen 31 mg/dL (8-23); Calcium 8.7 mg/dL (8.5-10.5); Carbon Dioxide 21 mmol/L (22-29); Chloride 100 mmol/L (98-107); Creatinine Clr Calc Pharmacy 57.8257; Globulin 2.3 g/dL (1.3-4.6); Glomerular Filtration Rate 50.4 mL/min (90-130); Glucose 197 mg/dL (65-115); NT Pro B Type Natriuretic Pept 896 pg/mL (0-125); Osmolality Calculated 298 mOsm/kg (285-295); Potassium 3.9 mmol/L (3.5-5.1); Sodium 138 mmol/L (136-145); Total Protein 6.6 g/dL (6.6-8.7)
[2024-04-16 15:34] LABS: Bilirubin Urine Negative (Negative); Blood Urine Negative (Negative); Glucose Urine UA Trace (Normal); Ketones Urine Negative (Negative); Leukocyte Esterase Urine Trace (Negative); Nitrate Urine Negative (Negative); Protein Urine 3+ (Negative); Specific Gravity, Urine 1.023 (1.005-1.030); Urine Appearance Clear (CLEAR); Urine Color Yellow (Yellow); Urobilinogen Urine 0.2 mg/dL (Negative)
[2024-04-16 15:36] LABS: Bacteria Urine None Seen /hpf; Hyaline Casts Urine 13.22 /lpf; RBC Urine 0-2 /hpf (0-2); Squamous Epithelial Cell Urine 0-5 /hpf (0-5); WBC Urine 0-5 /hpf (0-5)
[2024-04-16 15:39] LABS: UA Slide Review UA Slide Review Perf
[2024-04-16 15:40] LABS: Add Urine Culture? No
--- NOTE | 2024-04-16 15:53 | ECG_ITS ---
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 Measurements Intervals [place] Rate: 98 P: 42 MI: 223 QRS: -45 QRSD: 83 T: 69 QT: 346 QTc: 443 Interpretive Statements SINUS RHYTHM WITH FIRST DEGREE AV BLOCK LEFT AXIS DEVIATION [QRS AXIS < -30] POSSIBLE ANTERIOR MYOCARDIAL INFARCTION , OF INDETERMINATE AGE [30 ms Q WAVE IN V3/V4, OR R < 0.2 mV IN V4] Compared to ECG 04/16/2024 13:59:43 Myocardial infarct finding now present Sinus tachycardia no longer present T-wave abnormality no longer present Electronically Signed On 04-16-2024 21:32:56 FREIGHT AIR BRAKE FITTER by Lizeth Veliz M.D. [id number]
[2024-04-16 16:14] VITALS: BP 138/79; PULSE 65; O2SAT 98
== END 2024-04-16 16:15 | disposition home or self-care (01) ==
PROVIDERS: Emergency Provider Emergency Medicine; PCP Nurse Practitioner Family
DX: R53.1 Weakness (principal); Z79.02 Long term (current) use of antithrombotics/antiplatelets; Z79.4 Long term (current) use of insulin; E11.22 Type 2 diabetes mellitus with diabetic chronic kidney disease; I12.9 Hypertensive chronic kidney disease with stage 1 through stage 4 chronic kidney disease, or unspecified chronic kidney disease; E11.40 Type 2 diabetes mellitus with diabetic neuropathy, unspecified; N18.9 Chronic kidney disease, unspecified; E78.5 Hyperlipidemia, unspecified; I25.10 Atherosclerotic heart disease of native coronary artery without angina pectoris
CPT/HCPCS: 36415; 71045; 80053; 81001; 83880; 84484; 85025; 93005; 99285

== ENCOUNTER 2024-05-30 11:35 | Emergency (ER) | payer MEDICARE, MEDICAID, SELFPAY ==
[2024-05-30] VITALS (13 sets, daily range): BP systolic 104–173; BP diastolic 50–92; PULSE 81; TEMP 36.4; O2SAT 94–100; BMI 31.9
--- NOTE | 2024-05-30 | CT_ITS ---
NOTE: Original Signature date and time was: 05/30/24 @ 1302 Exam: CT head wo tianna* [id number] Date/Time of Exam: 05/30/2024 12:45 PM Reason For Exam: Dizziness altered mental status DLP: Comparison 11/15/2023. No sign of intracranial mass or acute bleed. Diffuse atrophy with volume loss. Microvascular ischemic changes in the periventricular white matter substance. No extra-axial fluid collections are seen. The ventricles and basal cisterns are normal in size. The mastoid air cells and visualized facial sinuses are clear. Normal orbits and optic globes. IMPRESSION: 1. Diffuse atrophy with volume loss and microvascular ischemic changes. 2. No intracranial mass or acute bleed. All CT scans at [facility] use at least one of these dose optimization techniques: automated exposure control; mA and/or kV adjustment per patient size (includes targeted exams where dose is matched to clinical indication); or iterative reconstruction. MTDD
--- NOTE | 2024-05-30 11:56 | ECG_ITS ---
[facility] Date: 2024-05-30 Pat Name: Yaya Astudillo Department: Room: Gender: Male Senior Quantity Surveyor: : 1955 Requested By: Benito Rodríguez Order Number: [id number] Tr MD: Lizeth Veliz M.D. Measurements Intervals [place] Rate: 80 P: 15 VA: 187 QRS: -11 QRSD: 91 T: 73 QT: 386 QTc: 447 Interpretive Statements SINUS RHYTHM WITH SINUS ARRHYTHMIA ANTEROSEPTAL MYOCARDIAL INFARCTION , OF INDETERMINATE AGE [40+ ms Q WAVE IN V1-V4] Compared to ECG 04/16/2024 15:53:30 First degree AV block no longer present Left-axis deviation no longer present Myocardial infarct finding still present Electronically Signed On 05-30-2024 20:28:39 ASSEMBLER SEAT by Lizeth Veliz M.D. [email or web address]
--- NOTE | 2024-05-30 12:10 | W.ED.DIZZY ---
HPI - Dizziness General: Chief Complaint: Dizziness Stated Complaint: fall Time Seen by Provider: 05/30/24 11:53 History of Present Illness: HPI Narrative: 68-year-old male presents emergency room complaining of progressive dizziness over the last week he feels like he cannot walk across the room without feeling like he has to fall over he is fallen twice in the last about 12 hours. He has also been sleeping more. No chest pain. He is progressively felt weaker has not had any flu cough or cold symptoms no nausea or vomiting. Vision and speech have been good. Associated symptoms: Denies chest pain or chills Related Data Home Medications ?Medication ?Instructions ?Recorded ?Confirmed aspirin 81 mg tablet,delayed 81 mg PO QAM 05/10/19 05/30/24 release (Adult Low Dose Aspirin) cholecalciferol (vitamin D3) 25 25 mcg PO DAILY 10/10/22 05/30/24 mcg (1,000 unit) capsule (Vitamin D3) docosahexaenoic acid (dha)-epa 120 1 cap PO DAILY 10/10/22 05/30/24 mg-180 mg capsule (Fish Oil) atorvastatin 40 mg tablet 40 mg PO QPM 10/16/22 05/30/24 insulin lispro 100 unit/mL See Rx Instructions .Route .COMPLEX 06/16/23 05/30/24 subcutaneous pen nitroglycerin 0.4 mg sublingual See Rx Instructions .Route .COMPLEX 07/27/23 05/30/24 tablet carbidopa 25 mg-levodopa 100 mg 1 tab PO QID 03/01/24 05/30/24 tablet furosemide 40 mg tablet 40 mg PO DAILY 05/30/24 05/30/24 insulin glargine 100 unit/mL (3 85 unit SUBCUT BID 05/30/24 05/30/24 mL) subcutaneous pen (Lantus Solostar U-100 Insulin) Previous Rx's ?Medication ?Instructions ?Recorded clopidogrel 75 mg tablet 75 mg PO DAILY 3 months #90 tabs 11/10/19 metoprolol tartrate 50 mg tablet 50 mg PO BID #180 tabs 11/10/19 finasteride 5 mg tablet 5 mg PO DAILY #90 tabs 10/11/22 tamsulosin 0.4 mg capsule 0.4 mg PO DAILY #90 caps 10/11/22 isosorbide mononitrate 60 mg 60 mg PO DAILY #30 tabs 06/16/23 tablet,extended release 24 hr ciprofloxacin HCl 500 mg tablet 500 mg PO BID #14 tabs 05/30/24 (Cipro) Allergies Allergy/AdvReac Type Severity Reaction Status Date / Time No Known Allergies Allergy Verified 04/18/24 15:02 Review of Systems Const: Denies: fever(s) or chills Card: Denies: chest pain Resp: Denies: dyspnea GI: Denies: abdominal pain : Denies: dysuria, urinary frequency or urinary urgency Musc: Denies: neck pain or back pain Skin/Breast: Denies: rash PFSH ED PFSH: Medical History CÉSAR (obstructive sleep apnea) Hyperlipidemia HTN (hypertension) ASHD (arteriosclerotic heart disease) Diabetes Hyperglycemia JULIET (acute kidney injury) Elbow contusion Dystonic tremor Acute on chronic renal failure Urinary tract infection Urinary retention Acute renal failure Ophthalmoplegia Parkinson disease Diabetic neuropathy associated with type 2 diabetes mellitus Essential tremor Cough Exposure to COVID-19 virus Chronic diarrhea Diabetic foot ulcer CKD (chronic kidney disease) (~10/12/20) Obesity Myocardial infarction Surgical History S/P eye surgery Status post colonoscopy (12/24/20) sigmoid polyp Status post amputation of toe S/P angioplasty with stent Family History Mother CAD (coronary artery disease) Diabetes Social History Smoking and tobacco/nicotine status: former use of tobacco/nicotine Alcohol intake: former Substance/Drug Use: never Lives independently: Yes Household members: other Details: DOG Marital status: service: No Current occupational status: disabled Previous occupational history: [employer] Physical Exam Const: GENERAL APPEARANCE: cooperative ORIENTATION/CONSCIOUSNESS: Yes awake, Yes oriented to person, Yes oriented to place and Yes oriented to time HENMT: COMMON NORMALS: normocephalic, atraumatic and hearing grossly normal bilaterally HEAD & SCALP: normocephalic and atraumatic Resp: COMMON NORMALS: normal respiratory effort, No retractions, No use of accessory muscles and clear to auscultation bilaterally AUSCULTATION: clear to auscultation bilaterally Cardio: COMMON NORMALS: regular rate, regular rhythm and No murmurs present (Cardio) RATE: regular rate RHYTHM: regular rhythm GI: COMMON NORMALS: Soft to palpation and No hepatosplenomegaly present AUSCULTATION: Yes normoactive bowel sounds PALPATION: Yes Soft to palpation, No Tenderness to palpation present (GI), No Guarding due to palpation present (GI) and Yes No hepatosplenomegaly present Extremity: COMMON NORMALS: normal to inspection, capillary refill normal, no clubbing, cyanosis or edema, no calf tenderness and no pedal edema Neuro: SENSORIUM/ORIENTATION: Yes oriented to person, Yes oriented to place and Yes oriented to time Skin: COMMON NORMALS: no rashes or lesions noted GENERAL SKIN EXAM: no rashes or lesions noted Course Vital Signs: Vital signs: Vital Signs Temperature 97.5 F L 05/30/24 11:44 Pulse Rate 81 05/30/24 17:15 Blood Pressure 150/92 05/30/24 17:15 Pulse Oximetry 100 05/30/24 17:15 Oxygen Delivery Me thod Room Air 05/30/24 11:44 MDM - Dizziness Medical Decision Making Labs and imaging reviewed no acute findings. Patient able to ambulate to and from the bathroom without any difficulty did not have any unsteadiness he did report he felt very weak at the end of that walk. Reviewed the findings with him he states he is feeling better will discharge patient home. He does have a mild increase in his creatinine. I asked him to hold his Lasix for the next 3 days recheck his creatinine with his primary care doctor in 3 to 4 days. Lab Data 05/30/24 13:12 05/30/24 13:12 Laboratory Results WBC 8.66 10^3/uL (3.29-11.43) 05/30/24 13:12 RBC 4.81 10^6/uL (3.85-5.65) 05/30/24 13:12 Hgb 13.70 g/dL (11.27-16.99) 05/30/24 13:12 Hct 41.5 % (37-53) 05/30/24 13:12 MCV 86.3 fl (82-101) 05/30/24 13:12 MCH 28.5 pg (27-33) 05/30/24 13:12 MCHC 33.0 g/dL (30-55) 05/30/24 13:12 RDW 13.8 % (12.1-15.1) 05/30/24 13:12 Plt Count 198 10^3/cmm (157-399) 05/30/24 13:12 MPV 10.9 fL (7.4-10.4) H 05/30/24 13:12 Neut % (Auto) 77.6 % 05/30/24 13:12 Lymph % (Auto) 13.4 % 05/30/24 13:12 Davidson % (Auto) 7.3 % 05/30/24 13:12 Eos % (Auto) 1.0 % 05/30/24 13:12 Baso % (Auto) 0.5 % 05/30/24 13:12 Neut # (Auto) 6.72 10^3/uL (1.8-7.7) 05/30/24 13:12 Lymph # (Auto) 1.2 10^3/uL (0.8-4.8) 05/30/24 13:12 Davidson # (Auto) 0.6 10^3/uL (0.2-0.9) 05/30/24 13:12 Eos # (Auto) 0.1 10^3/uL (0.0-0.8) 05/30/24 13:12 Baso # (Auto) 0.0 10^3/uL (0.0-0.1) 05/30/24 13:12 Nucleated RBC % (auto) 0 % 05/30/24 13:12 Nucleated RBCs # 0.0 /100WBC 05/30/24 13:12 Specimen Type Arterial 05/30/24 12:38 Sample Site Brachial, left 05/30/24 12:38 ABG pH 7.40 (7.35-7.45) 05/30/24 12:38 ABG pCO2 38.4 mmHg (35-45) 05/30/24 12:38 ABG pO2 73.5 mmHg (80.0-100.0) L 05/30/24 12:38 ABG PO2/FiO2 Ratio 350 05/30/24 12:38 ABG HCO3 23.8 mmol/L (22-26) 05/30/24 12:38 ABG O2 Saturation 95.5 05/30/24 12:38 ABG Base Excess -0.8 mmol/L (-2.0-2.0) 05/30/24 12:38 Pete Test Pos 05/30/24 12:38 A-a O2 Gradient 3.9 mmHg (5-10) L 05/30/24 12:38 Hematocrit 43.1 % (42-52) 05/30/24 12:38 Hgb O2 Saturation 93.9 % (95-100) L 05/30/24 12:38 Carboxyhemoglobin 1.5 %THgb (0.4-20.1) 05/30/24 12:38 Methemoglobin 0.2 % (0.4-1.5) L 05/30/24 12:38 Total Hemoglobin 14.1 g/dL (14-18) 05/30/24 12:38 Sodium 136.0 mmol/L (131-143) 05/30/24 12:38 Potassium 3.5 mmol/L (3.5-5.0) 05/30/24 12:38 Glucose 271.0 mg/dL (70-115) H 05/30/24 12:38 Ionized Calcium 1.2 mmol/L (1.1-1.4) 05/30/24 12:38 O2 Delivery Device Room air 05/30/24 12:38 FiO2 21.0 % 05/30/24 12:38 Director Of Manufacturing Operations ID [email or web address] 05/30/24 12:38 Sodium 136 mmol/L (136-145) 05/30/24 13:12 Potassium 4.0 mmol/L (3.5-5.1) 05/30/24 13:12 Chloride 96 mmol/L (98-107) L 05/30/24 13:12 Carbon Dioxide 25 mmol/L (22-29) 05/30/24 13:12 Anion Gap 19.0 (5-19) 05/30/24 13:12 BUN 32 mg/dL (8-23) H 05/30/24 13:12 Creatinine 1.6 mg/dL (0.7-1.2) H 05/30/24 13:12 GFR Calculation 43.2 mL/min (90-130) L 05/30/24 13:12 Glucose 265 mg/dL (65-115) H 05/30/24 13:12 Calculated Osmolality 298 mOsm/kg (285-295) H 05/30/24 13:12 Calcium 9.5 mg/dL (8.5-10.5) 05/30/24 13:12 Total Bilirubin 0.7 mg/dL (0.15-1.2) 05/30/24 13:12 AST 14 U/L (0-40) 05/30/24 13:12 ALT 11 U/L (0-41) 05/30/24 13:12 Alkaline Phosphatase 102 U/L (40-130) 05/30/24 13:12 Total Protein 7.0 g/dL (6.6-8.7) 05/30/24 13:12 Albumin 3.9 g/dL (3.5-5.2) 05/30/24 13:12 Globulin 3.1 g/dL (1.3-4.6) 05/30/24 13:12 Urine Color Yellow (Yellow) 05/30/24 13:41 Urine Appearance Clear (CLEAR) 05/30/24 13:41 Urine pH 5.0 (5-7) 05/30/24 13:41 Ur Specific [place] 1.020 (1.005-1.030) 05/30/24 13:41 Urine Protein 3+ (Negative) A 05/30/24 13:41 Urine Glucose (UA) 3+ (Normal) H 05/30/24 13:41 Urine Ketones Trace (Negative) 05/30/24 13:41 Urine Blood Negative (Negative) 05/30/24 13:41 Urine Nitrate Negative (Negative) 05/30/24 13:41 Urine Bilirubin Negative (Negative) 05/30/24 13:41 Urine Urobilinogen 0.2 mg/dL (Negative) 05/30/24 13:41 Ur Leukocyte Esterase 2+ (Negative) A 05/30/24 13:41 Urine RBC 3-5 /hpf (0-2) 05/30/24 13:41 Urine WBC 51-100 /hpf (0-5) H 05/30/24 13:41 Ur Squamous Epith Cells 0-5 /hpf (0-5) 05/30/24 13:41 Amorphous Sediment Not Reportable 05/30/24 13:41 Urine Bacteria None seen /hpf (NONE) 05/30/24 13:41 Hyaline Casts 20.27 /lpf 05/30/24 13:41 Influenza A (PCR) Negative (Negative) 05/30/24 12:17 Influenza Type B (PCR) Negative (Negative) 05/30/24 12:17 RSV (PCR) Negative (Negative) 05/30/24 12:17 SARS-CoV-2 (PCR) Negative (Negative) 05/30/24 12:17 All radiology interpretation(s) finalized by discharge Discharge Plan Discharge Patient Disposition: Home Clinical Impression: Dizziness, Acute kidney injury, Cystitis Condition: Stable Prescriptions: New ciprofloxacin HCl [Cipro] 500 mg tablet 500 mg PO BID Qty: 14 0RF No Action aspirin [Adult Low Dose Aspirin] 81 mg tablet,delayed release (DR/EC) 81 mg PO QAM atorvastatin 40 mg tablet 40 mg PO QPM clopidogrel 75 mg tablet 75 mg PO DAILY 90 Days Qty: 90 3RF metoprolol tartrate 50 mg tablet 50 mg PO BID Qty: 180 3RF nitroglycerin 0.4 mg tablet, sublingual See Rx Instructions .ROUTE .COMPLEX Rx Instructions: DISSOLVE ONE TABLET UNDER THE TONGUE EVERY 5 MINUTES NEEDED FOR CHEST PAIN. DO NOT EXCEED A TOTAL OF 3 DOSES IN 15 MINUTES - REPORT TO THE EMERGENCY ROOM IF 3 DOSES ARE NEEDED TO CONTROL PAIN furosemide 40 mg tablet 40 mg PO DAILY insulin glargine [Lantus Solostar U-100 Insulin] 100 unit/mL (3 mL) insulin pen 85 unit SUBCUT BID cholecalciferol (vitamin D3) [Vitamin D3] 25 mcg (1,000 unit) Capsule 25 mcg PO DAILY Fish Oil 120-180 mg Capsule 1 cap PO DAILY tamsulosin 0.4 mg Capsule 0.4 mg PO DAILY Qty: 90 1RF finasteride 5 mg Tablet 5 mg PO DAILY Qty: 90 3RF insulin lispro 100 unit/mL insulin pen See Rx Instructions .ROUTE .COMPLEX Rx Instructions: TAKE 15 UNITS DAILY. IF BG OVER 200, TAKE 25 UNITS. isosorbide mononitrate 60 mg tablet extended release 24 hr 60 mg PO DAILY Qty: 30 0RF carbidopa-levodopa 25-100 mg tablet 1 tab PO QID Rx Instructions: TAKE 1 TABLET BY MOUTH IN THE MORNING AND 1 TAB AT NOON AND 1 TAB AT 4 IN THE EVENING. Discharge Orders: Discharge ED (Routine); Ordered 05/30/24 Ordered By: Benito Evans Referrals: Roxana James FNP [Primary Care Provider] - Patient Instructions: Opioid Safety, Pain Management Activity Restrictions/Additional Instructions: [facility] It is very important that you follow up as instructed or that you return to the Emergency Department should you have concerns or if your condition changes or worsens in any way. You were seen in the emergency room was complaints of dizziness. EKG was normal negative CT of your head was unremarkable. At this point you can be safely discharged home. Recommend holding your Lasix for the next 2 days follow-up with your primary care doctor in 2 to 3 days to recheck your kidney function. You were noted to have slightly elevated kidney function while in the emergency room. Print Language: Slovak Coding Level of Care Code ED Manager [employer] for Hugo Garcia NIH stroke score NIHSS Level Of Consciousness - 1a: 0 Level Of Consciousness Questions - 1b: Both Correct Level Of Consciousness Commands - 1c: Both Correct Best Gaze - 2: Normal Visual Garcia - 3: No Visual Loss Facial Palsy - 4: Normal Motor Arm Right - 5: No Drift Motor Arm Left - 5: No Drift Motor Leg Right - 6: No Drift Motor Leg Left - 6: No Drift Limb Ataxia - 7: Absent Sensory - 8: Normal Best Language - 9: No Aphasia Dysarthia - 10: Normal Extinction And Inattention - 11: 0 Score Total Score: 0
[2024-05-30 12:51] LABS: ABG PCO2 38.4 mmHg (35-45); Alveolar-Arterial Oxygen Gradi 3.9 mmHg (5-10); Arterial Blood Gas Hematocrit 43.1 % (42-52); Base Excess ABG -0.8 mmol/L (-2.0-2.0); Blood Gas Allen Test Pos; Blood Gas Operator Identificat gerca; Blood Gas Sample Site Brachial, left; Blood Gas Sample Type Arterial; Carboxyhemoglobin 1.5 %THgb (0.4-20.1); HCO3 ABG 23.8 mmol/L (22-26); HGB O2 Sat 93.9 % (95-100); Ionized Calcium Level - ABG 1.2 mmol/L (1.1-1.4); Methemoglobin 0.2 % (0.4-1.5); Oxygen Device ROOM AIR; Oxygen Saturation ABG 95.5; PO2 ABG 73.5 mmHg (80.0-100.0); PO2 FiO2 Ratio Arterial Blood 350; Potassium Level - ABG 3.5 mmol/L (3.5-5.0); Total Hemoglobin 14.1 g/dL (14-18)
[2024-05-30 13:10] LABS: Influenza A NEGATIVE (Negative); Influenza B NEGATIVE (Negative); Respiratory Syncytial Virus Ce NEGATIVE (Negative); SARS-CoV-2 PCR NEGATIVE (Negative)
[2024-05-30 13:23] LABS: Basophils % 0.5 %; Eosinophils # 0.1 10^3/uL (0.0-0.8); Hematocrit 41.5 % (37-53); Lymphocytes # 1.2 10^3/uL (0.8-4.8); Lymphocytes % 13.4 %; Mean Corpuscular Hemoglobin 28.5 pg (27-33); Mean Corpuscular Volume 86.3 fl (82-101); Mean Platelet Volume 10.9 fL (7.4-10.4); Monocytes # 0.6 10^3/uL (0.2-0.9); Monocytes % 7.3 %; Neutrophils # 6.72 10^3/uL (1.8-7.7); Neutrophils % 77.6 %; Nucleated Red Blood Cells % 0 %; Platelet Count 198 10^3/cmm (157-399); Red Blood Count 4.81 10^6/uL (3.85-5.65); Red Cell Distribution Width 13.8 % (12.1-15.1); White Blood Count 8.66 10^3/uL (3.29-11.43)
[2024-05-30 13:43] LABS: Alanine Aminotransferase 11 U/L (0-41); Albumin Level 3.9 g/dL (3.5-5.2); Alkaline Phosphatase 102 U/L (40-130); Aspartate Amino Transferase 14 U/L (0-40); Blood Urea Nitrogen 32 mg/dL (8-23); Calcium 9.5 mg/dL (8.5-10.5); Carbon Dioxide 25 mmol/L (22-29); Chloride 96 mmol/L (98-107); Creatinine Clr Calc Pharmacy 49.4635; Globulin 3.1 g/dL (1.3-4.6); Glomerular Filtration Rate 43.2 mL/min (90-130); Glucose 265 mg/dL (65-115); Osmolality Calculated 298 mOsm/kg (285-295); Sodium 136 mmol/L (136-145); Total Bilirubin 0.7 mg/dL (0.15-1.2)
[2024-05-30 13:59] LABS: Bilirubin Urine Negative (Negative); Blood Urine Negative (Negative); Glucose Urine UA 3+ (Normal); Ketones Urine Trace (Negative); Leukocyte Esterase Urine 2+ (Negative); Nitrate Urine Negative (Negative); Protein Urine 3+ (Negative); Urine Appearance Clear (CLEAR); Urine Color Yellow (Yellow); Urobilinogen Urine 0.2 mg/dL (Negative)
[2024-05-30 14:01] LABS: Add Urine Microscopic? YES; Bacteria Urine None Seen /hpf; Hyaline Casts Urine 20.27 /lpf; Squamous Epithelial Cell Urine 0-5 /hpf (0-5); WBC Urine 51-100 /hpf (0-5)
[2024-05-30 14:12] LABS: Add Urine Culture? Yes
[2024-05-30] MEDS: sodium chloride 0.9% 1,000 ML 999 ML IV (15:59)
== END 2024-05-30 17:16 | disposition home or self-care (01) ==
PROVIDERS: Emergency Provider Family Medicine; PCP Nurse Practitioner Family
DX: R42 Dizziness and giddiness (principal); N17.9 Acute kidney failure, unspecified; N30.90 Cystitis, unspecified without hematuria; Z79.82 Long term (current) use of aspirin; Z79.02 Long term (current) use of antithrombotics/antiplatelets; Z79.4 Long term (current) use of insulin; Z11.52 Encounter for screening for COVID-19; Z87.891 Personal history of nicotine dependence; E11.22 Type 2 diabetes mellitus with diabetic chronic kidney disease; I12.9 Hypertensive chronic kidney disease with stage 1 through stage 4 chronic kidney disease, or unspecified chronic kidney disease; N18.9 Chronic kidney disease, unspecified; E78.5 Hyperlipidemia, unspecified
CPT/HCPCS: 36415; 36600; 70450; 80051; 80053; 81001; 82330; 82805; 85025; 87086; 87637; 93005; 99284; J7030

== ENCOUNTER → 2024-08-19 10:22 | Outpatient (BNVA) | payer MEDICARE, MEDICAID, SELFPAY | PROVIDERS: PCP Nurse Practitioner Family; Visit Provider Internal Medicine | DX: E11.40 Type 2 diabetes mellitus with diabetic neuropathy, unspecified (principal); E11.9 Type 2 diabetes mellitus without complications; E78.2 Mixed hyperlipidemia | CPT/HCPCS: 99214 ==

== ENCOUNTER 2024-09-03 23:09 | Emergency (ER) | payer MEDICARE, MEDICAID, SELFPAY ==
[2024-09-03 23:10] VITALS: BP 138/82; PULSE 84; RESP 20; TEMP 36.7; O2SAT 99; BMI 33.4
--- NOTE | 2024-09-03 23:18 | XRR_ITS ---
PROCEDURE INFORMATION: Exam: XR Chest Exam date and time: 09/03/2024 11:24 PM Age: 68 years old Clinical indication: Other: Back pain; Prior surgery; Surgery date: 6+ months; Surgery type: Stent TECHNIQUE: Imaging protocol: Radiologic exam of the chest. Views: 1 view. COMPARISON: CR XR chest 1V portable [id number] 04/16/2024 2:40 PM FINDINGS: Lungs: Unremarkable. No consolidation. Pleural spaces: Unremarkable. No pleural effusion. No pneumothorax. Heart/Mediastinum: Stable cardiomediastinal silhouette. Bones/joints: Unremarkable. XR/XR chest 1V portable [id number] IMPRESSION: No acute cardiopulmonary process.
--- NOTE | 2024-09-03 23:18 | ECG_ITS ---
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: : [id number] Requested By: Santiago Mitchell Order Number: [id number] MD: ROSALIE CUMMINS Measurements Intervals [place] Rate: 81 P: 43 MI: 185 QRS: -32 QRSD: 86 T: 62 QT: 392 QTc: 457 Interpretive Statements SINUS RHYTHM WITH FREQUENT VENTRICULAR PREMATURE COMPLEXES IN A BIGEMINAL PATTERN LEFT AXIS DEVIATION [QRS AXIS < -30] PATTERN CONSISTENT WITH PULMONARY DISEASE SEPTAL MYOCARDIAL INFARCTION , PROBABLY OLD [40+ ms Q WAVE IN V1/V2] Compared to ECG 05/30/2024 11:56:04 Ventricular premature complex(es) now present Left-axis deviation now present Sinus arrhythmia no longer present Myocardial infarct finding still present Electronically Signed On 09-05-2024 19:06:07 CDT by ROSALIE CUMMINS [email or web address]
[2024-09-03 23:45] LABS: Alanine Aminotransferase 24 U/L (0-41); Albumin Level 4.1 g/dL (3.5-5.2); Alkaline Phosphatase 103 U/L (40-130); Blood Urea Nitrogen 22 mg/dL (8-23); Calcium 9.3 mg/dL (8.5-10.5); Carbon Dioxide 25 mmol/L (22-29); Chloride 101 mmol/L (98-107); Globulin 2.6 g/dL (1.3-4.6); Glomerular Filtration Rate 66.6 mL/min (90-130); Glucose 228 mg/dL (65-115); Osmolality Calculated 297 mOsm/kg (285-295); Sodium 138 mmol/L (136-145); Total Bilirubin 0.5 mg/dL (0.15-1.2); Total Protein 6.7 g/dL (6.6-8.7)
[2024-09-03 23:46] LABS: Basophils % 0.7 %; Eosinophils # 0.2 10^3/uL (0.0-0.8); Eosinophils % 2.6 %; Hematocrit 38.7 % (37-53); Lymphocytes # 1.3 10^3/uL (0.8-4.8); Mean Corpuscular HGB Conc 32.3 g/dL (30-55); Mean Corpuscular Hemoglobin 29.6 pg (27-33); Mean Corpuscular Volume 91.7 fl (82-101); Mean Platelet Volume 10.8 fL (7.4-10.4); Monocytes # 0.6 10^3/uL (0.2-0.9); Monocytes % 9.8 %; Neutrophils # 3.71 10^3/uL (1.8-7.7); Neutrophils % 64.7 %; Nucleated Red Blood Cells % 0 %; Platelet Count 181 10^3/cmm (157-399); Red Blood Count 4.22 10^6/uL (3.85-5.65); Red Cell Distribution Width 14.6 % (12.1-15.1); Troponin(5th) Baseline 20 ng/L (0-15); White Blood Count 5.73 10^3/uL (3.29-11.43)
[2024-09-03 23:48] LABS: Anion Gap 16.5 (5-19); Aspartate Amino Transferase 33 U/L (0-40); Potassium 4.5 mmol/L (3.5-5.1)
[2024-09-04 01:01] VITALS: BP 181/95; PULSE 72; RESP 16; O2SAT 97
--- NOTE | 2024-09-04 01:03 | W.ED.BACK ---
HPI - Back Pain/Injury General: Chief Complaint: Back Pain/Injury Stated Complaint: BACK PAIN Time Seen by Provider: 09/04/24 00:25 History of Present Illness: Yaya Astudillo, a male patient with a history of congestive heart failure and diabetes, presents to the emergency department with concerns of a possible heart attack. The patient reports experiencing back pain, which he states is where his cardiac symptoms typically begin. He took three nitroglycerin tablets without relief, prompting his visit to the ED. The patient describes the pain as localized to the middle of his back, stating it feels like his heart's in my back. He denies any chest pain or pain in other locations. The pain is exacerbated by taking deep breaths, limiting his ability to breathe deeply. Lying on his side provided some relief, but the pain persisted when he returned to lying on his back. The patient does not mention any associated symptoms such as sweating, but does report some shortness of breath when attempting to breathe deeply. Mr. Astudillo reports a history of constipation and mentions being prescribed medication for an enlarged prostate, though he disputes this diagnosis. He states he has been urinating frequently since starting this medication. The patient is currently on hospice care for his congestive heart failure and diabetes, though he expresses uncertainty about the reasons for this level of care. 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 He attributes this to complications from cataract surgery performed by a previous doctor. This vision impairment is not new and has been ongoing for some time. Related Data Home Medications ?Medication ?Instructions ?Recorded ?Confirmed aspirin 81 mg tablet,delayed 81 mg PO QAM 05/10/19 08/19/24 release (Adult Low Dose Aspirin) cholecalciferol (vitamin D3) 25 25 mcg PO DAILY 10/10/22 08/19/24 mcg (1,000 unit) capsule (Vitamin D3) docosahexaenoic acid (dha)-epa 120 1 cap PO DAILY 10/10/22 08/19/24 mg-180 mg capsule (Fish Oil) atorvastatin 40 mg tablet 40 mg PO QPM 10/16/22 08/19/24 insulin lispro 100 unit/mL See Rx Instructions .Route .COMPLEX 06/16/23 08/19/24 subcutaneous pen nitroglycerin 0.4 mg sublingual See Rx Instructions .Route .COMPLEX 07/27/23 08/19/24 tablet carbidopa 25 mg-levodopa 100 mg 1 tab PO QID 03/01/24 08/19/24 tablet furosemide 40 mg tablet 40 mg PO DAILY 05/30/24 08/19/24 insulin glargine 100 unit/mL (3 85 unit SUBCUT BID 05/30/24 08/19/24 mL) subcutaneous pen (Lantus Solostar U-100 Insulin) Previous Rx's ?Medication ?Instructions ?Recorded clopidogrel 75 mg tablet 75 mg PO DAILY 3 months #90 tabs 11/10/19 metoprolol tartrate 50 mg tablet 50 mg PO BID #180 tabs 11/10/19 finasteride 5 mg tablet 5 mg PO DAILY #90 tabs 10/11/22 tamsulosin 0.4 mg capsule 0.4 mg PO DAILY #90 caps 10/11/22 isosorbide mononitrate 60 mg 60 mg PO DAILY #30 tabs 06/16/23 tablet,extended release 24 hr ciprofloxacin HCl 500 mg tablet 500 mg PO BID #14 tabs 05/30/24 (Cipro) Allergies Allergy/AdvReac Type Severity Reaction Status Date / Time No Known Allergies Allergy Verified 08/19/24 07:52 Review of Systems General: Reports: 10 or more systems reviewed and unremarkable except in HPI and below PFSH ED PFSH: Medical History CÉSAR (obstructive sleep apnea) Hyperlipidemia HTN (hypertension) ASHD (arteriosclerotic heart disease) Diabetes Hyperglycemia JULIET (acute kidney injury) Elbow contusion Dystonic tremor Acute on chronic renal failure Urinary tract infection Urinary retention Acute renal failure Ophthalmoplegia Parkinson disease Diabetic neuropathy associated with type 2 diabetes mellitus Essential tremor Cough Exposure to COVID-19 virus Chronic diarrhea Diabetic foot ulcer CKD (chronic kidney disease) (~10/12/20) Obesity Myocardial infarction Surgical History S/P eye surgery Status post colonoscopy (12/24/20) sigmoid polyp Status post amputation of toe S/P angioplasty with stent Family History Mother CAD (coronary artery disease) Diabetes Social History Smoking and tobacco/nicotine status: former use of tobacco/nicotine Alcohol intake: former Substance/Drug Use: never Lives independently: Yes Household members: other Details: DOG Marital status: service: No Current occupational status: disabled 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 Physical Exam Const: COMMON NORMALS: no acute distress, patient oriented x3, healthy appearing, alert and well nourished HENMT: COMMON NORMALS: normocephalic HEAD & SCALP: normocephalic Eye: COMMON NORMALS: EOMs intact bilaterally Neck/C-Spine: COMMON NORMALS: full ROM and supple Resp: COMMON NORMALS: normal respiratory effort, No retractions and clear to auscultation bilaterally AUSCULTATION: clear to auscultation bilaterally Cardio: COMMON NORMALS: regular rate, regular rhythm, No gallops present (Cardio) and No murmurs present (Cardio) RATE: regular rate RHYTHM: regular rhythm GI: COMMON NORMALS: Soft to palpation and non-tender PALPATION: Yes Soft to palpation Back/Pelvis: OTHER: Tenderness to palpation along the paraspinal muscles from T6-T12 Extremity: GENERAL: Yes normal exam except as noted Neuro: COMMON NORMALS: patient oriented x3 SENSORIUM/ORIENTATION: Yes alert Skin: COMMON NORMALS: no rashes or lesions noted GENERAL SKIN EXAM: no rashes or lesions noted Course Vital Signs: Vital signs: Vital Signs Temperature 98.0 F 09/03/24 23:10 Pulse Rate 80 09/04/24 02:30 Respiratory Rate 16 09/04/24 02:30 Blood Pressure 144/86 09/04/24 02:30 Pulse Oximetry 96 09/04/24 02:30 Oxygen Delivery Me thod Room Air 09/04/24 02:30 MDM - Back Pain/Injury Medical Decision Making 68-year-old male presents emergency department for evaluation of mid back pain. He is concerned that it is his heart as this is how his previous ischemic events presented. However, his pain did not get better with nitro. His evaluation here in the emergency department today was negative for acute coronary syndrome including no ST segment elevation on his EKG, only mild elevation in troponin without a significant rise at 2 hours. Patient's pain likely secondary to muscle skeletal as it is also reproducible with palpation. Return precautions were discussed and the patient was discharged home in stable condition. Labs 09/03/24 23:00 09/03/24 23:00 Radiology Impressions Chest X-Ray 09/03/24 23:18 IMPRESSION: No acute cardiopulmonary process. Laboratory Results WBC 5.73 10^3/uL (3.29-11.43) 09/03/24 23:00 RBC 4.22 10^6/uL (3.85-5.65) 09/03/24 23:00 Hgb 12.50 g/dL (11.27-16.99) 09/03/24 23:00 Hct 38.7 % (37-53) 09/03/24 23:00 MCV 91.7 fl (82-101) 09/03/24 23:00 MCH 29.6 pg (27-33) 09/03/24 23:00 MCHC 32.3 g/dL (30-55) 09/03/24 23:00 RDW 14.6 % (12.1-15.1) 09/03/24 23:00 Plt Count 181 10^3/cmm (157-399) 09/03/24 23:00 MPV 10.8 fL (7.4-10.4) H 09/03/24 23:00 Neut % (Auto) 64.7 % 09/03/24 23:00 Lymph % (Auto) 22.0 % 09/03/24 23:00 [place] % (Auto) 9.8 % 09/03/24 23:00 Eos % (Auto) 2.6 % 09/03/24 23:00 Baso % (Auto) 0.7 % 09/03/24 23:00 Neut # (Auto) 3.71 10^3/uL (1.8-7.7) 09/03/24 23:00 Lymph # (Auto) 1.3 10^3/uL (0.8-4.8) 09/03/24 23:00 [place] # (Auto) 0.6 10^3/uL (0.2-0.9) 09/03/24 23:00 Eos # (Auto) 0.2 10^3/uL (0.0-0.8) 09/03/24 23:00 Baso # (Auto) 0.0 10^3/uL (0.0-0.1) 09/03/24 23:00 Nucleated RBC % (auto) 0 % 09/03/24 23:00 Nucleated RBCs # 0.0 /100WBC 09/03/24 23:00 Sodium 138 mmol/L (136-145) 09/03/24 23:00 Potassium 4.5 mmol/L (3.5-5.1) 09/03/24 23:00 Chloride 101 mmol/L (98-107) 09/03/24 23:00 Carbon Dioxide 25 mmol/L (22-29) 09/03/24 23:00 Anion Gap 16.5 (5-19) 09/03/24 23:00 BUN 22 mg/dL (8-23) 09/03/24 23:00 Creatinine 1.1 mg/dL (0.7-1.2) 09/03/24 23:00 GFR Calculation 66.6 mL/min (90-130) L 09/03/24 23:00 Glucose 228 mg/dL (65-115) H 09/03/24 23:00 Calculated Osmolality 297 mOsm/kg (285-295) H 09/03/24 23:00 Calcium 9.3 mg/dL (8.5-10.5) 09/03/24 23:00 Total Bilirubin 0.5 mg/dL (0.15-1.2) 09/03/24 23:00 AST 33 U/L (0-40) 09/03/24 23:00 ALT 24 U/L (0-41) 09/03/24 23:00 Alkaline Phosphatase 103 U/L (40-130) 09/03/24 23:00 Troponin T Baseline 20 ng/L (0-15) H 09/03/24 23:00 Troponin T 120 Minute 23.43 ng/L (0-15) H 09/04/24 01:18 Delta Troponin T 3.43 ABS# (0-10) 09/04/24 01:18 Total Protein 6.7 g/dL (6.6-8.7) 09/03/24 23:00 Albumin 4.1 g/dL (3.5-5.2) 09/03/24 23:00 Globulin 2.6 g/dL (1.3-4.6) 09/03/24 23:00 All radiology interpretation(s) finalized by discharge Discharge Plan Discharge Patient Disposition: Home Clinical Impression: Acute mid back pain Condition: Stable Prescriptions: No Action aspirin [Adult Low Dose Aspirin] 81 mg tablet,delayed release (DR/EC) 81 mg PO QAM atorvastatin 40 mg tablet 40 mg PO QPM clopidogrel 75 mg tablet 75 mg PO DAILY 90 Days Qty: 90 3RF metoprolol tartrate 50 mg tablet 50 mg PO BID Qty: 180 3RF nitroglycerin 0.4 mg tablet, sublingual See Rx Instructions .ROUTE .COMPLEX Rx Instructions: DISSOLVE ONE TABLET UNDER THE TONGUE EVERY 5 MINUTES NEEDED FOR CHEST PAIN. DO NOT EXCEED A TOTAL OF 3 DOSES IN 15 MINUTES - REPORT TO THE EMERGENCY ROOM IF 3 DOSES ARE NEEDED TO CONTROL PAIN furosemide 40 mg tablet 40 mg PO DAILY insulin glargine [Lantus Solostar U-100 Insulin] 100 unit/mL (3 mL) insulin pen 85 unit SUBCUT BID ciprofloxacin HCl [Cipro] 500 mg tablet 500 mg PO BID Qty: 14 0RF cholecalciferol (vitamin D3) [Vitamin D3] 25 mcg (1,000 unit) Capsule 25 mcg PO DAILY Fish Oil 120-180 mg Capsule 1 cap PO DAILY tamsulosin 0.4 mg Capsule 0.4 mg PO DAILY Qty: 90 1RF finasteride 5 mg Tablet 5 mg PO DAILY Qty: 90 3RF insulin lispro 100 unit/mL insulin pen See Rx Instructions .ROUTE .COMPLEX Rx Instructions: TAKE 15 UNITS DAILY. IF BG OVER 200, TAKE 25 UNITS. isosorbide mononitrate 60 mg tablet extended release 24 hr 60 mg PO DAILY Qty: 30 0RF carbidopa-levodopa 25-100 mg tablet 1 tab PO QID Rx Instructions: TAKE 1 TABLET BY MOUTH IN THE MORNING AND 1 TAB AT NOON AND 1 TAB AT 4 IN THE EVENING. Discharge Orders: Discharge ED (Routine); Ordered 09/04/24 Ordered By: Santiago Law Referrals: Roxana James FNP [Primary Care Provider, Unknown] Discharge Diet: Advance as tolerated Discharge Activity: Resume usual activity Patient Instructions: Opioid Safety, Pain Management Activity Restrictions/Additional Instructions: Follow-up with your primary care physician regarding your mid back pain. Return to the emergency department with any new or worsening symptoms. Print Language: Bulgarian Coding Level of Care Code ED Pesticide Applicator for Hugo Garcia
[2024-09-04] MEDS: lactated ringers 1,000 ML 999 ML IV (01:06)
--- NOTE | 2024-09-04 01:18 | ECG_ITS ---
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1955 Requested By: Santiago Law Order Number: [id number] MD: ROSALIE CUMMINS Measurements Intervals [place] Rate: 82 P: 35 MN: 201 QRS: -38 QRSD: 84 T: 60 QT: 361 QTc: 424 Interpretive Statements SINUS RHYTHM LEFT AXIS DEVIATION [QRS AXIS < -30] PATTERN CONSISTENT WITH PULMONARY DISEASE SEPTAL MYOCARDIAL INFARCTION , PROBABLY OLD [40+ ms Q WAVE IN V1/V2] Compared to ECG 09/03/2024 23:22:54 Ventricular premature complex(es) no longer present Myocardial infarct finding still present Electronically Signed On 09-05-2024 19:07:58 CDT by ROSALIE CUMMINS [email or web address]
[2024-09-04 01:41] LABS: Troponin 5 2HR 23.43 ng/L (0-15); Troponin 5 2HR Delta 3.43 ABS# (0-10)
[2024-09-04 02:30] VITALS: BP 144/86; PULSE 80; RESP 16; O2SAT 96
[2024-09-04 05:05] VITALS: BP 148/72; PULSE 89; RESP 16; O2SAT 96
== END 2024-09-04 05:07 | disposition home or self-care (01) ==
PROVIDERS: Emergency Provider General Practice; PCP Nurse Practitioner Family
DX: M54.9 Dorsalgia, unspecified (principal); R35.0 Frequency of micturition; I50.9 Heart failure, unspecified; E11.9 Type 2 diabetes mellitus without complications; Z79.899 Other long term (current) drug therapy
CPT/HCPCS: 36415; 71045; 80053; 84484; 85025; 93005; 99285; J7120

== ENCOUNTER 2024-09-23 06:45 | Emergency (ER) | payer MEDICARE, MEDICAID, SELFPAY ==
[2024-09-23 06:54] VITALS: BP 167/76; PULSE 99; RESP 18; TEMP 36.8; O2SAT 96; BMI 33.4
--- NOTE | 2024-09-23 07:04 | W.ED.MALEGU ---
HPI - Male Genitourinary General: Chief complaint: Urogenital-Male Stated complaint: UTI Time Seen by Provider: 09/23/24 06:49 History of Present Illness: 68-year-old male presents emergency room with complaints difficulty urination that began overnight. He had problems with prostate issues in the past with urinary retention requiring Salazar catheterization. He has not changed any of his medications he is on tamsulosin 0.4 daily. His mentioned that they might have seen some blood around the toilet prior to him becoming unable to urinate at all. Denies any flank pain no fever sweats or chills. Incidental finding during exam noted on the dorsum of his right hand he has some swelling and redness patient states he was bitten by his own dog which is a small puppy was bitten over a week ago he had been on a course antibiotics he finished those despite this he still has some swelling and discomfort in that area. Dog has not shown any other sign of illness. Dr. galloway for rabies. Associated symptoms: Reports dysuria Related Data Home Medications ?Medication ?Instructions ?Recorded ?Confirmed aspirin 81 mg tablet,delayed 81 mg PO QAM 05/10/19 09/23/24 release (Adult Low Dose Aspirin) cholecalciferol (vitamin D3) 25 25 mcg PO DAILY 10/10/22 09/23/24 mcg (1,000 unit) capsule (Vitamin D3) docosahexaenoic acid (dha)-epa 120 1 cap PO DAILY 10/10/22 09/23/24 mg-180 mg capsule (Fish Oil) atorvastatin 40 mg tablet 40 mg PO QPM 10/16/22 09/23/24 insulin lispro 100 unit/mL See Rx Instructions .Route .COMPLEX 06/16/23 09/23/24 subcutaneous pen nitroglycerin 0.4 mg sublingual See Rx Instructions .Route .COMPLEX 07/27/23 09/23/24 tablet carbidopa 25 mg-levodopa 100 mg See Rx Instructions .Route .COMPLEX 03/01/24 09/23/24 tablet furosemide 40 mg tablet 40 mg PO DAILY 05/30/24 09/23/24 insulin glargine 100 unit/mL (3 85 unit SUBCUT BID 05/30/24 09/23/24 mL) subcutaneous pen (Lantus Solostar U-100 Insulin) lactulose 10 gram/15 mL oral 30 ml PO BID PRN Constipation 09/23/24 09/23/24 solution (Constulose) polyethylene glycol 3350 17 17 g PO DAILY PRN Constipation 09/23/24 09/23/24 gram/dose oral powder (ClearLax) potassium chloride 20 mEq 20 meq PO QAM 09/23/24 09/23/24 tablet,extended release Previous Rx's ?Medication ?Instructions ?Recorded clopidogrel 75 mg tablet 75 mg PO DAILY 3 months #90 tabs 11/10/19 metoprolol tartrate 50 mg tablet 50 mg PO BID #180 tabs 11/10/19 finasteride 5 mg tablet 5 mg PO DAILY #90 tabs 10/11/22 tamsulosin 0.4 mg capsule 0.4 mg PO DAILY #90 caps 10/11/22 isosorbide mononitrate 60 mg 60 mg PO DAILY #30 tabs 06/16/23 tablet,extended release 24 hr Allergies Allergy/AdvReac Type Severity Reaction Status Date / Time No Known Allergies Allergy Verified 08/19/24 07:52 Review of Systems Const: Denies: fever(s) or chills Card: Denies: chest pain Resp: Denies: dyspnea GI: Denies: abdominal pain : Reports: dysuria, urinary dribbling and difficulty starting urination; Denies: urinary frequency or urinary urgency Musc: Denies: neck pain or back pain Skin/Breast: Reports: erythema and skin swelling PFSH ED PFSH: Medical History CÉSAR (obstructive sleep apnea) Hyperlipidemia HTN (hypertension) ASHD (arteriosclerotic heart disease) Diabetes Hyperglycemia JULIET (acute kidney injury) Elbow contusion Dystonic tremor Acute on chronic renal failure Urinary tract infection Urinary retention Acute renal failure Ophthalmoplegia Parkinson disease Diabetic neuropathy associated with type 2 diabetes mellitus Essential tremor Cough Exposure to COVID-19 virus Chronic diarrhea Diabetic foot ulcer CKD (chronic kidney disease) (~10/12/20) Obesity Myocardial infarction Surgical History S/P eye surgery Status post colonoscopy (12/24/20) sigmoid polyp Status post amputation of toe S/P angioplasty with stent Family History Mother CAD (coronary artery disease) Diabetes Social History Smoking and tobacco/nicotine status: former use of tobacco/nicotine Alcohol intake: former Substance/Drug Use: never Lives independently: Yes Household members: other Details: DOG Marital status: service: No Current occupational status: disabled 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 Physical Exam Const: GENERAL APPEARANCE: cooperative ORIENTATION/CONSCIOUSNESS: Yes awake, Yes oriented to person, Yes oriented to place and Yes oriented to time HENMT: COMMON NORMALS: normocephalic, atraumatic and hearing grossly normal bilaterally HEAD & SCALP: normocephalic and atraumatic Resp: COMMON NORMALS: normal respiratory effort, No retractions, No use of accessory muscles and clear to auscultation bilaterally AUSCULTATION: clear to auscultation bilaterally Cardio: COMMON NORMALS: regular rate, regular rhythm and No murmurs present (Cardio) RATE: regular rate RHYTHM: regular rhythm GI: COMMON NORMALS: Soft to palpation and No hepatosplenomegaly present AUSCULTATION: Yes normoactive bowel sounds PALPATION: Yes Soft to palpation, No Tenderness to palpation present (GI), No Guarding due to palpation present (GI) and Yes No hepatosplenomegaly present Extremity: OTHER: Noted on the right hand to have small superficial abscess between the 2nd, 3rd, 3rd and 4th MP joints. Some mild swelling and tenderness there. No epitrochlear lymphadenopathy at the elbow. Neuro: SENSORIUM/ORIENTATION: Yes oriented to person, Yes oriented to place and Yes oriented to time Skin: COMMON NORMALS: no rashes or lesions noted GENERAL SKIN EXAM: no rashes or lesions noted Course Vital Signs: Vital signs: Vital Signs Temperature 98.2 F 09/23/24 06:54 Pulse Rate 99 09/23/24 06:54 Respiratory Rate 18 09/23/24 06:54 Blood Pressure 114/91 09/23/24 10:03 Pulse Oximetry 96 09/23/24 06:54 Oxygen Delivery Me thod Room Air 09/23/24 06:54 MDM - Male Medical Decision Making Nursing difficulty with placement of Salazar placed Salazar after retraction of foreskin without difficulty. For stream pulled back into the typical position without any problems no phimosis. Able to drain 1200 mL from the bladder patient had instant relief of symptoms no further symptoms this time no leukocytosis no sign of cystitis. Will discharge patient home with Salazar leg bag at home follow-up with urology for further instructions eval for his prostate issues. Medical Records I reviewed the patient's medical records. Lab Data I reviewed the patient's lab results. 09/23/24 07:22 09/23/24 07:22 Laboratory Results WBC 9.96 10^3/uL (3.29-11.43) 09/23/24 07:22 RBC 3.90 10^6/uL (3.85-5.65) 09/23/24 07:22 Hgb 11.40 g/dL (11.27-16.99) 09/23/24 07:22 Hct 35.6 % (37-53) L 09/23/24 07:22 MCV 91.3 fl (82-101) 09/23/24 07:22 MCH 29.2 pg (27-33) 09/23/24 07: MCHC 32.0 g/dL (30-55) 09/23/24 07:22 RDW 14.1 % (12.1-15.1) 09/23/24 07:22 Plt Count 178 10^3/cmm (157-399) 09/23/24 07:22 MPV 10.4 fL (7.4-10.4) 09/23/24 07:22 Neut % (Auto) 82.2 % 09/23/24 07:22 Lymph % (Auto) 8.8 % 09/23/24 07:22 [place] % (Auto) 7.2 % 09/23/24 07:22 Eos % (Auto) 1.1 % 09/23/24 07:22 Baso % (Auto) 0.5 % 09/23/24 07:22 Neut # (Auto) 8.18 10^3/uL (1.8-7.7) H 09/23/24 07:22 Lymph # (Auto) 0.9 10^3/uL (0.8-4.8) 09/23/24 07:22 [place] # (Auto) 0.7 10^3/uL (0.2-0.9) 09/23/24 07:22 Eos # (Auto) 0.1 10^3/uL (0.0-0.8) 09/23/24 07:22 Baso # (Auto) 0.1 10^3/uL (0.0-0.1) 09/23/24 07:22 Nucleated RBC % (auto) 0 % 09/23/24 07:22 Nucleated RBCs # 0.0 /100WBC 09/23/24 07:22 Sodium 134 mmol/L (136-145) L 09/23/24 07:22 Potassium 4.4 mmol/L (3.5-5.1) 09/23/24 07:22 Chloride 99 mmol/L (98-107) 09/23/24 07:22 Carbon Dioxide 18 mmol/L (22-29) L 09/23/24 07:22 Anion Gap 21.4 (5-19) H 09/23/24 07:22 BUN 41 mg/dL (8-23) H 09/23/24 07:22 Creatinine 1.4 mg/dL (0.7-1.2) H 09/23/24 07:22 GFR Calculation 50.4 mL/min (90-130) L 09/23/24 07:22 Glucose 242 mg/dL (65-115) H 09/23/24 07:22 Calculated Osmolality 296 mOsm/kg (285-295) H 09/23/24 07:22 Calcium 8.4 mg/dL (8.5-10.5) L 09/23/24 07:22 Total Bilirubin 0.5 mg/dL (0.15-1.2) 09/23/24 07:22 AST 24 U/L (0-40) 09/23/24 07:22 ALT 21 U/L (0-41) 09/23/24 07:22 Alkaline Phosphatase 86 U/L (40-130) 09/23/24 07:22 Total Protein 7.0 g/dL (6.6-8.7) 09/23/24 07:22 Albumin 4.1 g/dL (3.5-5.2) 09/23/24 07:22 Globulin 2.9 g/dL (1.3-4.6) 09/23/24 07:22 Urine Color Yellow (Yellow) 09/23/24 08:12 Urine Appearance Clear (CLEAR) 09/23/24 08:12 Urine pH 5 (5-7) 09/23/24 08:12 Ur Specific [place] 1.018 (1.005-1.030) 09/23/24 08:12 Urine Protein 2+ (Negative) H 09/23/24 08:12 Urine Glucose (UA) 1+ (Normal) H 09/23/24 08:12 Urine Ketones Negative (Negative) 09/23/24 08:12 Urine Blood Neg (Negative) 09/23/24 08:12 Urine Nitrate Negative (Negative) 09/23/24 08:12 Urine Bilirubin Neg (Negative) 09/23/24 08:12 Urine Urobilinogen 1 mg/dL (Negative) H 09/23/24 08:12 Ur Leukocyte Esterase Negative (Negative) 09/23/24 08:12 Urine RBC 0-4 /hpf (0-2) H 09/23/24 08:12 Urine WBC 0-4 /hpf (0-5) H 09/23/24 08:12 Ur Squamous Epith Cells 0-4 /hpf (0-5) H 09/23/24 08:12 Amorphous Sediment Not Reportable 09/23/24 08:12 Urine Bacteria Trace /hpf (NONE) 09/23/24 08:12 Hyaline Casts 18.61 /lpf 09/23/24 08:12 Coarse Granular Casts 0-4 /lpf H 09/23/24 08:12 No radiology studies performed this visit Discharge Plan Discharge Patient Disposition: Home Clinical Impression: Acute retention of urine Condition: Stable Prescriptions: No Action aspirin [Adult Low Dose Aspirin] 81 mg tablet,delayed release (DR/EC) 81 mg PO QAM atorvastatin 40 mg tablet 40 mg PO QPM clopidogrel 75 mg tablet 75 mg PO DAILY 90 Days Qty: 90 3RF metoprolol tartrate 50 mg tablet 50 mg PO BID Qty: 180 3RF nitroglycerin 0.4 mg tablet, sublingual See Rx Instructions .ROUTE .COMPLEX Rx Instructions: DISSOLVE ONE TABLET UNDER THE TONGUE EVERY 5 MINUTES NEEDED FOR CHEST PAIN. DO NOT EXCEED A TOTAL OF 3 DOSES IN 15 MINUTES - REPORT TO THE EMERGENCY ROOM IF 3 DOSES ARE NEEDED TO CONTROL PAIN furosemide 40 mg tablet 40 mg PO DAILY insulin glargine [Lantus Solostar U-100 Insulin] 100 unit/mL (3 mL) insulin pen 85 unit SUBCUT BID cholecalciferol (vitamin D3) [Vitamin D3] 25 mcg (1,000 unit) Capsule 25 mcg PO DAILY Fish Oil 120-180 mg Capsule 1 cap PO DAILY tamsulosin 0.4 mg Capsule 0.4 mg PO DAILY Qty: 90 1RF finasteride 5 mg Tablet 5 mg PO DAILY Qty: 90 3RF insulin lispro 100 unit/mL insulin pen See Rx Instructions .ROUTE .COMPLEX Rx Instructions: TAKE 15 UNITS DAILY. IF BG OVER 200, TAKE 25 UNITS. isosorbide mononitrate 60 mg tablet extended release 24 hr 60 mg PO DAILY Qty: 30 0RF carbidopa-levodopa 25-100 mg tablet See Rx Instructions .ROUTE .COMPLEX Rx Instructions: TAKE 1 TABLET BY MOUTH IN THE MORNING AND 1 TAB AT NOON AND 1 TAB AT 4 IN THE EVENING. polyethylene glycol 3350 [ClearLax] 17 gram/dose powder 17 g PO DAILY PRN (Reason: Constipation) lactulose [Constulose] 10 gram/15 mL solution 30 ml PO BID PRN (Reason: Constipation) potassium chloride 20 mEq tablet extended release 20 meq PO QAM Discharge Orders: Discharge ED (Routine); Ordered 09/23/24 Ordered By: Benito Evans Referrals: Roxana James FNP [Primary Care Provider, Unknown] Discharge Diet: Usual diet Discharge Activity: Increase activity as tolerated Patient Instructions: Urinary Retention in Men (ED), Opioid Safety, Pain Management Activity Restrictions/Additional Instructions: Thank you for choosing [facility] for your healthcare needs today. It is very important that you follow up as instructed or that you return to the Emergency Department should you have concerns or if your condition changes or worsens in any way. You were seen for abdominal pain. Evaluation emergency room showed you are retaining urine there is no sign of infection. You should maintain the Salazar catheter and follow-up with your urologist to have it removed typically will be at minimum 7 to 10 days before it can be removed. Print Language: Burmese Coding Level of Care Code ED [employer] Specialist for Hugo Garcia
[2024-09-23 07:27] LABS: Basophils # 0.1 10^3/uL (0.0-0.1); Basophils % 0.5 %; Eosinophils # 0.1 10^3/uL (0.0-0.8); Eosinophils % 1.1 %; Hematocrit 35.6 % (37-53); Lymphocytes # 0.9 10^3/uL (0.8-4.8); Lymphocytes % 8.8 %; Mean Corpuscular Hemoglobin 29.2 pg (27-33); Mean Corpuscular Volume 91.3 fl (82-101); Mean Platelet Volume 10.4 fL (7.4-10.4); Monocytes # 0.7 10^3/uL (0.2-0.9); Monocytes % 7.2 %; Neutrophils # 8.18 10^3/uL (1.8-7.7); Neutrophils % 82.2 %; Nucleated Red Blood Cells % 0 %; Platelet Count 178 10^3/cmm (157-399); Red Cell Distribution Width 14.1 % (12.1-15.1); White Blood Count 9.96 10^3/uL (3.29-11.43)
[2024-09-23 07:45] LABS: Alanine Aminotransferase 21 U/L (0-41); Albumin Level 4.1 g/dL (3.5-5.2); Alkaline Phosphatase 86 U/L (40-130); Anion Gap 21.4 (5-19); Aspartate Amino Transferase 24 U/L (0-40); Blood Urea Nitrogen 41 mg/dL (8-23); Calcium 8.4 mg/dL (8.5-10.5); Carbon Dioxide 18 mmol/L (22-29); Chloride 99 mmol/L (98-107); Creatinine Clr Calc Pharmacy 57.8257; Globulin 2.9 g/dL (1.3-4.6); Glomerular Filtration Rate 50.4 mL/min (90-130); Glucose 242 mg/dL (65-115); Osmolality Calculated 296 mOsm/kg (285-295); Potassium 4.4 mmol/L (3.5-5.1); Sodium 134 mmol/L (136-145); Total Bilirubin 0.5 mg/dL (0.15-1.2)
[2024-09-23] MEDS: tetanus-dipt-pertussis 0.5 mL SDV IM (08:18)
[2024-09-23 08:45] LABS: Add Urine Microscopic? YES; Bilirubin Urine Neg (Negative); Blood Urine Neg (Negative); Glucose Urine UA 1+ (Normal); Ketones Urine Negative (Negative); Leukocyte Esterase Urine Negative (Negative); Nitrate Urine Negative (Negative); Protein Urine 2+ (Negative); RBC Urine 0-4 /hpf (0-2); Specific Gravity, Urine 1.018 (1.005-1.030); Squamous Epithelial Cell Urine 0-4 /hpf (0-5); Urine Appearance Clear (CLEAR); Urine Color Yellow (Yellow); Urobilinogen Urine 1 mg/dL (Negative); WBC Urine 0-4 /hpf (0-5); pH Urine 5 (5-7)
[2024-09-23 08:46] LABS: Bacteria Urine TRACE /hpf; Coarse Granular Casts Urine 0-4 /lpf; Hyaline Casts Urine 18.61 /lpf; UA Slide Review UA Slide Review Perf
[2024-09-23] MEDS: lidocaine 2% viscous 15 ML, aluminum-mag hydrox-simethicon 30 ML, sucralfate oral liq 1 GM PO (08:59)
[2024-09-23 10:03] VITALS: BP 114/91
== END 2024-09-23 10:55 | disposition home or self-care (01) ==
PROVIDERS: Emergency Provider Family Medicine; PCP Nurse Practitioner Family
DX: R33.9 Retention of urine, unspecified (principal); Z79.82 Long term (current) use of aspirin; Z79.02 Long term (current) use of antithrombotics/antiplatelets; Z87.891 Personal history of nicotine dependence; E11.22 Type 2 diabetes mellitus with diabetic chronic kidney disease; N18.9 Chronic kidney disease, unspecified; E78.5 Hyperlipidemia, unspecified
CPT/HCPCS: 51702; 51798; 80053; 81001; 85025; 90471; 90715; 99283; J9999

== ENCOUNTER → 2024-09-28 09:04 | Outpatient (BNVA) | payer MEDICARE, MEDICAID, SELFPAY | PROVIDERS: PCP Nurse Practitioner Family; Visit Provider Physician Assistant | DX: G56.03 Carpal tunnel syndrome, bilateral upper limbs (principal); G56.23 Lesion of ulnar nerve, bilateral upper limbs | CPT/HCPCS: 73130; 99214 ==

== ENCOUNTER 2024-10-08 14:59 | Emergency (ER) | payer MEDICARE, MEDICAID, SELFPAY ==
--- OUTSIDE RECORDS SUMMARY | 2023-07-28 11:00 | XMS_ITS ---
Author Organization [facility] Address [address] [place] [address] Care Team Providers Care Truck Driver Name Role Phone Roxana James APRN Primary Care Provider EFRAIN Garcia Unavailable [phone] ZAHIRA DYE Unavailable [phone] REASON FOR VISIT 6 mo w/ ua/pvr Encounters Encounter Location Date Provider Diagnosis [facility] [address] [facility] [place] [address] 07/28/2023 EFRAIN MATOS Plan Of Treatment No Information Progress Notes * Yaya ASTUDILLODOB: (68 yo M)Acc No.[id number]:07/28/2023 Progress Notes Patient: Yaya MARY Provider: MEENAKSHI Hernandes :1955 A ge:67 Y S ex:Male Date:07/28/2023 Address:[address] [place] [address] Pcp:Roxana James APRN Subjective: * Chief Complaints: * 1 . 6 mo w/ ua/pvr. * Medical History: Objective: * Vitals: Assessment: Plan: * Treatment: * Billing Information: * Visit Code: * Procedure Codes: * Electronic signature of EFRAIN MATOS APRN on 10/08/2024 at 03:10 PM CDT Sign off status: Pending * Provider: MEENAKSHI Hernandes Date: 0 07/28/2023 Generated for Yenifer jimenez/Rolf/eTransmitting on: 0 10/08/2024 03:10 PM CDT
[2024-10-08 15:01] VITALS: BP 175/82; PULSE 76; RESP 16; TEMP 36.7; O2SAT 93; BMI 33.4
--- OUTSIDE RECORDS SUMMARY | 2024-10-08 15:11 | XMS_ITS | Patient Health Record ---
Author Organization [employer] Address [address] [place] [address] Care Team Providers Care Field Service Supervisor Name Role Phone Roxana James APRN Primary Care Provider EFRAIN Garcia Unavailable [phone] ZAHIRA DYE Unavailable [phone] Allergies No Known Allergies Reason For Referral No Information Medications Medication SIG (Take, Route, Frequency, Duration) Notes Start Date End Date Status Victoza 18 MG/3ML as directed Subcutaneous Active Tamsulosin HCl 0.4 MG 1 capsule Orally Once a day Active Furosemide 40 MG 1 tablet Orally Once a day Active Finasteride 5 MG 1 tablet Orally Once a day Active Jardiance 25 MG 1 tablet Orally Once a day Active Metoprolol Tartrate 50 MG 1 tablet with food Orally Twice a day Active Lisinopril 20 MG 1 tablet Orally Once a day Not-Taking Clopidogrel Bisulfate 75 MG 1 tablet Orally Once a day Active Cipro *Pick strength-form from [employer] for eRX* Not-Taking Insulin Lispro 100 UNIT/ML as directed Subcutaneous *Pick strength-form from [employer] for eRX* Active Atorvastatin Calcium 40 MG 1 tablet Orally Once a day Active Carbidopa-Levodopa 25-100 MG 1 tablet as needed Orally Two times a Week Active Nitroglycerin 0.4 MG as directed Sublingual Active Levemir FlexPen 100 UNIT/ML as directed Subcutaneous *Reorder from [employer] for eRx and Interaction Alerts* Active Isosorbide Mononitrate ER 60 MG 1 tablet in the morning Orally Once a day Active Aspirin 81 81 MG 1 tablet Orally Once a day *Pick strength-form from [employer] for eRX* Active Pantoprazole Sodium 40 MG 1 tablet Orally Once a day Active Social History Tobacco Use: Social History Observation Description Date Details (start date - stop date) Former Smoker NA - NA Tobacco Use/Smoking Question Answer Notes Tobacco use: former smoker How long has it been since you last smoked? 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) Active confirmed Problem Dysuria (20507472) Dysuria (R30.0) Active confirmed Problem Lower urinary tract symptoms due to benign prostatic hypertrophy (19147055717420) Benign prostatic hyperplasia with lower urinary tract symptoms (N40.1) Active confirmed Problem 4950396630359 Recent urinary tract infection (Z87.440) Active confirmed Problem Retention of urine (120905149) History of urinary retention (Z87.898) Active confirmed Problem History of UTI (Z87.440) Active confirmed Problem 463844381 Urinary retention (R33.9) Active confirmed Problem 555137070 BPH loc w urin obs/LUTS (N40.1) Active confirmed Plan Of Treatment No Information Insurance Providers Payer Name Payer Address Payer Phone Subscriber Number Group Number Insured Name Patient Relationship to Insured Coverage Start Date Coverage End Date [place] Replacement [address] [place], [place] [id number] [id number] Self - patient is the insured [place] Medicaid [address] [place], [place] [id number] Yaya Astudillo Self - patient is the insured Medical (General) History Medical History History ICD Code Arthritis Heart Condition Diabetes Hemorrhoids Hospitalization History Reason Date(Month/Year) Urinary Issue 09/2022
--- OUTSIDE RECORDS SUMMARY | 2024-10-08 15:11 | XMS_ITS | Encounter Summary ---
Author Organization [employer] [facility] Address [address] [place] [address] Care Team Providers Care Splicing Supervisor Name Role Phone Adolph Pal MD Primary Care Provider [phone] Encounter Details Date Type Department Care Team (Latest Contact Info) Description 10/31/2013 Ancillary Orders [facility] [place] [address] [place] [address] Type II or unspecified type diabetes mellitus without mention of complication, not stated as uncontrolled (CMS/[facility]) Social History Tobacco Use Types Packs/Day Years Used Date Smoking Tobacco: Never Alcohol Use Standard Drinks/Week Comments No 0 (1 standard drink = 0.6 oz pur e alcohol) Sex and Gender Information Value Date Recorded Sex Assigned at Not on file Legal Sex Male 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 Gender Identity Not on file Sexual Orientation Not on file Occupation Industry Job Start Date Job End Date Not on file Not on file Not on file Not on file documented as of this encounter Plan of Treatment Not on file documented as of this encounter Procedures Procedure Name Priority Date/Time Associated Diagnosis Comments HEMOGLOBIN A1C Routine 10/31/2013 9:26 PM CDT Type II or unspecified type diabetes mellitus without mention of complication, not stated as uncontrolled [ICD-9-CM] LIPID PANEL Routine 10/31/2013 9:26 PM CDT Type II or unspecified type diabetes mellitus without mention of complication, not stated as uncontrolled [ICD-9-CM] COMPREHENSIVE METABOLIC PANEL Routine 10/31/2013 9:26 PM CDT Type II or unspecified type diabetes mellitus without mention of complication, not stated as uncontrolled [ICD-9-CM] documented in this encounter Results * (ABNORMAL) HEMOGLOBIN A1C (10/31/2013 9:26 PM CDT) HEMOGLOBIN A1C 13.7(H) 4.5 - 6.2 % 10/31/2013 11:13 PM CDT [facility] EST. AVG GLUCOSE, A1C 346 mg/dL 10/31/2013 11:13 PM CDT [facility] Blood Collection / Unknown 10/31/2013 9:26 PM CDT 10/31/2013 9:26 PM CDT Artie Flanagan DO CHEMISTRY ORDERABLES Final Resu lt [facility] CLIA # [id number] [address] [place] [address] * (ABNORMAL) LIPID PANEL (10/31/2013 9:26 PM CDT) CHOLESTEROL 156 130 - 200 mg/dL 10/31/2013 10:03 PM CDT [facility] TRIGLYCERIDE 458(H) 30 - 200 mg/dL 10/31/2013 10:03 PM CDT [facility] HDL 22(L) 35 - 80 mg/dL 10/31/2013 10:03 PM CDT [facility] LDL CALCULATED 0 - 100 mg/dL 10/31/2013 10:03 PM CDT [facility] Comment:Calculated LDL is no t accurate when the Triglyceride value exceeds 400. Blood Collection / Unknown 10/31/2013 9:26 PM CDT 10/31/2013 9:26 PM CDT Narrative [facility] [employer] [facility] - 10/31/2013 10:03 PM CDT TOTAL CHOLESTEROL mg/dL Desirable <200 Borderline high 200-239 High >=240 TRIGLYCERIDES mg/dL Normal <150 Borderline high 150-199 High 200-499 Very high >=500 HDL CHOLESTEROL mg/dL Low <40 Normal 40-60 Desirable >60 LDL CHOLESTEROL mg/dL Optimal <100 Low risk 100-129 Borderline high 130-159 High 160-189 Very high >=190 Based on AHA/NCEP Guidelines us Atrie Flanagan DO CHEMISTRY ORDERABLES Final Resu lt [facility] CLIA # [id number] [address] [id number] * (ABNORMAL) COMPREHENSIVE METABOLIC PANEL (10/31/2013 9:26 PM CDT) SODIUM 135(L) 136 - 145 mmol/L 10/31/2013 10:26 PM T [facility] POTASSIUM 3.4(L) 3.5 - 5.1 mmol/L 10/31/2013 10:26 PM T [facility] CHLORIDE 99 98 - 107 mmol/L 10/31/2013 10:26 PM T [facility] [place] CO2 25 21 - 32 mmol/L 10/31/2013 10:26 PM T [facility] CALCIUM 9.4 8.5 - 10.1 mg/dL 10/31/2013 10:26 PM [facility] BUN 23(H) 7 - 18 mg/dL 10/31/2013 10:26 PM T [facility] CREATININE 1.40(H) 0.60 - 1.30 mg/dL 10/31/2013 10:26 PM T [facility] GLUCOSE 209(H) 74 - 106 mg/dL 10/31/2013 10:26 PM [facility] TOTAL PROTEIN 7.9 6.4 - 8.2 g/dL 10/31/2013 10:26 PM [facility] ALBUMIN 4.0 3.4 - 5.0 g/dL 10/31/2013 10:26 PM T [facility] BILIRUBIN TOTAL 0.3 0.2 - 1.0 mg/dL 10/31/2013 10:26 PM T [facility] ALKALINE PHOSPHATASE 126 50 - 136 U/L 10/31/2013 10:26 PM T [facility] AST 24 15 - 37 U/L 10/31/2013 10:26 PM [facility] ALT 42 30 - 65 U/L 10/31/2013 10:26 PM T [facility] GFR 52(L) >=60 mL/min/1.7 3 sq meter 10/31/2013 10:26 PM CDT [employer] [facility] Comment: eGFR has not been validated for use in the elderly (> 70 years of age), women, patients with serious co-morbid conditions, or persons with extremes of body size or muscle mass and should also be interpreted with caution in patients with acute kidney failure, dialysis dependent patients, patients reporting exceptional dietary intake (e.g. vegetarian diet, high protein diets, creatine supplementation), and patients with severe liver disease. Based on National Kidney Disease Education Program If patient is , please refer to the GFR result. GFR, >60 >=60 mL/min/1.7 3 sq meter 10/31/2013 10:26 PM CDT [employer] [facility] Blood Collection / Unknown 10/31/2013 9:26 PM CDT 10/31/2013 9:26 PM CDT Artie Flanagan DO CHEMISTRY ORDERABLES Final Resu lt [employer] [facility] CLIA # [id number] [address] [place] [address] documented in this encounter Visit Diagnoses Diagnosis Type II or unspecified type diabetes mellitus without mention of complication, not stated as uncontrolled documented in this encounter Care Teams Splicing Supervisor Relationship Specialty Start Date End Date Adolph Pal MD [address] [place] [id number] PCP - General Pediatrics 05/25/20 documented as of this encounter
--- OUTSIDE RECORDS SUMMARY | 2024-10-08 15:11 | XMS_ITS | Encounter Summary ---
Author Organization [employer] [facility] Address [address] [place] [address] Care Team Providers Care Fire Equipment Inspector Helper Name Role Phone Adolph Pal MD Primary Care Provider [phone] Encounter Details Date Type Department Care Team (Late st Contact Info) Description 10/18/2012 Ancillary Orders [facility] [place] [address] [place] [address] Sick Social History Tobacco Use Types Packs/Day Years Used Date Smoking Tobacco: Never Alcohol Use Standard Drinks/Week Comments No 0 (1 standard drink = 0.6 oz pur e alcohol) Sex and Gender Information Value Date Recorded Sex Assigned at Not on file Legal Sex Male 4:49 AM DIABETES SPECIALIST Gender Identity Not on file Sexual Orientation Not on file Occupation Industry Job Start Date Job End Date Not on file Not on file Not on file Not on file documented as of this encounter Plan of Treatment Not on file documented as of this encounter Procedures Procedure Name Priority Date/Time Associated Diagnosis Comments HEMOGLOBIN A1C Routine 10/18/2012 8:33 PM CDT Sick [ICD-9-CM] BASIC METABOLIC PANEL Routine 10/18/2012 8:33 PM CDT Sick [ICD-9-CM] documented in this encounter Results * (ABNORMAL) BASIC METABOLIC PANEL (10/18/2012 8:33 PM CDT) SODIUM 136 136 - 145 mmol/L 10/18/2012 10:48 PM CDT [facility] [place] POTASSIUM 4.3 3.5 - 5.1 mmol/L 10/18/2012 10:48 PM CDT [facility] [place] CHLORIDE 98 98 - 107 mmol/L 10/18/2012 10:48 PM CDT [facility] [place] CO2 27 21 - 32 mmol/L 10/18/2012 10:48 PM CDT [email or web address] [email or web address] [facility] CALCIUM 9.4 8.5 - 10.1 mg/dL 10/18/2012 10:48 PM CDT [email or web address] [email or web address] [facility] BUN 22(H) 7 - 18 mg/dL 10/18/2012 10:48 PM CDT [email or web address] [email or web address] [facility] CREATININE 1.70(H) 0.60 - 1.30 mg/dL 10/18/2012 10:48 PM T [email or web address] [email or web address] [facility] GLUCOSE 315(H) 74 - 106 mg/dL 10/18/2012 10:48 PM CDT [email or web address] [email or web address] [facility] GFR 42(L) >=60 mL/min/1.7 3 sq meter 10/18/2012 10:48 PM T [email or web address] [email or web address] [facility] Comment: eGFR has not been validated for use in the elderly (> 70 years of age), women, patients with serious co-morbid conditions, or persons with extremes of body size or muscle mass and should also be interpreted with caution in patients with acute kidney failure, dialysis dependant patients, patients reporting exceptional dietary intake (e.g. vegetarian diet, high protein diets, creatine supplementation), and patients with severe liver disease. Based on National Kidney Disease Education Program GFR, 51(L) >=60 mL/min/1.7 3 sq meter 10/18/2012 10:48 PM T [email or web address] [email or web address] [facility] Comment: eGFR has not been validated for use in the elderly (> 70 years of age), women, patients with serious co-morbid conditions, or persons with extremes of body size or muscle mass and should also be interpreted with caution in patients with acute kidney failure, dialysis dependant patients, patients reporting exceptional dietary intake (e.g. vegetarian diet, high protein diets, creatine supplementation), and patients with severe liver disease. Based on National Kidney Disease Education Program Blood specimen (specimen) Venipuncture - Lab Collect / Unknown 10/18/2012 8:33 PM CDT 10/18/2012 10:03 PM CDT us Kimber Mendoza CALENDER WORKER HELPER CHEMISTRY ORDERABLES Final Result [email or web address] [email or web address] [facility] CLIA # [id number] [address] [place] [address] * (ABNORMAL) HEMOGLOBIN A1C (10/18/2012 8:33 PM CDT) HEMOGLOBIN A1C 9.8(H) 4.5 - 6.2 % 10/18/2012 11:56 PM CDT [facility] EST. AVG GLUCOSE, A1C 235 mg/dL 10/18/2012 11:56 PM CDT [facility] Blood specimen (specimen) Venipuncture - Lab Collect / Unknown 10/18/2012 8:33 PM CDT 10/18/2012 10:03 PM CDT Kimber Mendoza CALENDER WORKER HELPER CHEMISTRY ORDERABLES Final Result [facility] CLIA # [id number] [address] [place] [address] documented in this encounter Visit Diagnoses Diagnosis Sick Other unknown and unspecified cause of morbidity or mortality documented in this encounter Care Teams Fire Equipment Inspector Helper Relationship Specialty Start Date End Date Adolph Pal MD [address] [place] [id number] PCP - General Pediatrics 05/25/20 documented as of this encounter
--- OUTSIDE RECORDS SUMMARY | 2024-10-08 15:11 | XMS_ITS | Clinical Summary ---
Author Organization [facility] Address [address] [facility] Attn: [place] [address] Care Team Providers Care Digital Publishing Specialist Name Role Phone Adolph Pal MD Primary Care Provider [phone] [phone] Allergies No known active allergies Medications insulin detemir U-100 (Levemir FlexTouch U-100 Insuln) 100 unit/mL pen syringe INJECT 20 UNITS SUB-Q EVERY MORNING AND 55 UNITS IN THE EVENING 9 mL 0 8 Active lancets 30 gauge Use bid to check blood sugars, Dx E11.9, . 100 Each 5 6 Active Insulin [place], Disposable, 31 gauge x 3/16 Needle For levemir flex pen and novolog flex pen. 100 Each 5 6 Active blood sugar diagnostic (OneTouch Verio test strips) Strip TEST BLOOD SUGAR TWICE DAILY (E11.9) 100 Strip 5 6 Active Insulin [place], Disposable, 31 gauge x 3/16 Needle DX:code E11.9. 90 Each 5 6 Active metoprolol tartrate (LOPRESSOR) 50 mg tablet Take 1 Tablet (50 mg) by mouth 2 times daily. 60 Tablet 5 6 Active pantoprazole (PROTONIX) 40 mg Tablet, Delayed Release (E.C.) Take 40 mg by mouth daily. 5 Active finasteride (PROSCAR) 5 mg tablet Take 5 mg by mouth daily. Active tamsulosin (FLOMAX) 0.4 mg capsule Take 0.4 mg by mouth daily. Active isosorbide mononitrate (IMDUR) 60 mg Extended Release 24 hour tablet Take 60 mg by mouth daily in the morning. Active carbidopa-levod opa (SINEMET) 25-100 mg tablet Take 1 Tablet by mouth 3 times daily. 1 in the morning, 1 at noon, 4 at night Active furosemide (LASIX) 40 mg tablet Take 40 mg by mouth daily. Active aspirin (ECOTRIN EC) 81 mg Tablet, Delayed Release (E.C.) Take 81 mg by mouth daily. Active atorvastatin (LIPITOR) 40 mg tablet Take 40 mg by mouth daily. Active clopidogreL (PLAVIX) 75 mg Tablet Take 75 mg by mouth. Active liraglutide (Victoza 3-Kg) 0.6 mg/0.1 mL (18 mg/3 mL) Inject 1.8 mg by subcutaneous injection daily. Active nitroglycerin (NITROSTAT) 0.4 mg Tablet, Sublingual as directed Sublingual Active insulin lispro (HumaLOG) 100 unit/mL pen syringe Active FreeStyle Regina 2 Sensor Kit 3 Active CALCIUM CARBONATE-VITAM IN D3 ORAL Take by mouth. 25mcg Active OMEGA-3 FATTY ACIDS-FISH OIL ORAL Take by mouth. 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, without long-term current use of insulin Family History Medical History Relation Name Comments Unknown Father Unknown Maternal Grandfather Unknown Maternal Grandmother Lung Cancer Mother Other Mother low blood sugar Respiratory Disease Mother Unknown Paternal Grandfather Unknown Paternal Grandmother Relation Name Status Comments Father Maternal Grandfather Maternal Grandmother Mother Paternal Grandfather Paternal Grandmother Social History Tobacco Use Types Packs/Day Years Used Date Smoking Tobacco: Former Cigarettes Q uit: 04/13/1984 Smokeless Tobacco: Former Quit: 04/13/1974 Tobacco Cessation:Counseling Given: Not Answered Alcohol Use Standard Drinks/Week Comments Not Currently 0 (1 standard drink = 0.6 oz pur e alcohol) Feeling Safe Answer Date Recorded Are you in a relationship wi th someone who hurts you emotionally and/or physically? No 04/14/2024 Sex and Gender Information Value Date Recorded Sex Assigned at Not on file Legal Sex Male 7:55 AM POLYMER MATERIALS CONSULTANT Gender Identity Not on file Sexual Orientation Not on file Last Filed Vital Signs Vital Sign Reading Time Taken Comments Blood Pressure 151/85 04/14/2024 10:09 AM POLYMER MATERIALS CONSULTANT pt reports will take BP meds when he gets home Pulse 66 04/14/2024 10:09 AM POLYMER MATERIALS CONSULTANT Temperature 36.3 C (97.4 F) 04/14/2024 10:09 AM POLYMER MATERIALS CONSULTANT Respiratory Rate 16 04/14/2024 10:0 9 AM POLYMER MATERIALS CONSULTANT Oxygen Saturation 96% 04/14/2024 10: 09 AM POLYMER MATERIALS CONSULTANT Inhaled Oxygen Concentration - - Weight 103.4 kg (228 lb) 04/14/2024 7:3 7 AM POLYMER MATERIALS CONSULTANT Height 172.7 cm (5' 8 ) 04/14/2024 7:37 AM POLYMER MATERIALS CONSULTANT Body Mass Index 34.67 04/14/2024 7:37 AM POLYMER MATERIALS CONSULTANT Plan of Treatment Health Maintenance Due Date Last Done Comments PNEUMOCOCCAL VACCINE 50+ YEA RS (1 of 2 - PCV) 10/13/1974 COLORECTAL SCREENING 10/13/2000 Colorectal Cancer Screening 10/13/2000 FIT-DNA Q 3 years 10/13/2000 FIT/FOBT Q 1 year 10/13/2000 Flex Sig/CT Colonography Q 5 years 10/13/2000 ZOSTER VACCINE (1 of 2) 10/13/2005 RSV VACCINE (60+ or ) (1 - Risk 60-74 years 1-dose series) 2015 DIABETES ANNUAL FOOT EXAM 09/02/2016 09/03/2015, 08/2014 DIABETES MICROALBUMIN ANNUAL SCREEN 09/02/2016 09/03/2015 LDL CHOLESTEROL ANNUAL 09/02/2016 09/03/2015 Abdominal Aortic Aneurysm (A AA) Screening 10/13/2020 INFLUENZA VACCINE (#1) 2023 DIABETES HBA1C Q 6 MONTHS 09/30/20242023, 12/04/2015, 09/03/2015, Additional history exists DIABETES ANNUAL RETINAL EXAM 05/13/2025, 05/13/2024, 05/13/2024, Additional history exists DTAP/TDAP/TD VACCINES (3 - T d or Tdap) 09/14/2032 09/14/2022, 04/29/2017 Medical Devices Implanted Type Area Supervisor Of Way Device Identifier Shelf Expiration Date Model / Serial / Lot Lens Io Bi-Aspheric Softechd+19.50 - [id number] Implanted:Qty: 1 on 04/01/2017 by Lev Todd MD Eye Right: Eye [employer] 02/26/2021 SOFTECHD+19 .50 / [id number] / Lens Io Bi-Aspheric Softechd+19.50 - [id number] Implanted:Qty: 1 on 06/17/2017 by Lev Todd MD Eye Left: Eye [employer] 11/19/2021 SOFTECHD+19 .50 / [id number] / Explanted Type Area Supervisor Of Way Device Identifier Shelf Expiration Date Model / Serial / Lot Oil Slc 8.5ml [id number] - [id number] Implanted:Qty: 1 on 04/30/2023 by Flori Copeland MD at [facility] Explanted:Qty: 1 on 04/14/2024 by Flori Copeland MD at [facility] Eye Right: Eye [facility] 10/10/2024 [id number] / / [id number] Description:GTIN: [id number] Procedures Procedure Name Priority Date/Time Associated Diagnosis Comments HEMOGLOBIN A1C Routine 12/04/2015 9:39 AM CDT MICROALBUMIN/CREATIN INE RATIO, RANDOM UR Routine 09/03/2015 9:40 AM CDT LIPID PANEL Routine 09/03/2015 9:40 AM CDT from Last 3 Months or Most Recently Relevant to Health Maintenance Results * (ABNORMAL) HEMOGLOBIN A1C (12/04/2015 9:39 AM CDT) HEMOGLOBIN A1C 11.7(H) 4.0 - 6.0 % 12/05/2015 9:[address] [facility] EST. AVG GLUCOSE, A1C 289 mg/dL 12/05/2015 9:[address] [facility] Blood Collection / Unknown 12/04/2015 9:39 AM CDT 12/04/2015 8:[address] [facility] - 12/05/2015 9:15 AM CDT Falsely low A1C measurements can occur when: 1. Anemia and/or hemolytic anemia is present. 2. Hemoglobin variants present. 3. Renal failure. 4. Transfusion of blood product in the last 120 days. We recommend ordering a fructosamine test([id number]) to more accurately assess glycemic status if any of the above conditions are present. Amy Valenzuela FUNERAL PROFESSIONAL CHEMISTRY ORDERAB LES Final Result [facility] CLIA# [id number] [address] [place] [address] * MICROALBUMIN/CREATININE RATIO, RANDOM UR (09/03/2015 9:40 AM CDT) MICROALBUMIN, URINE 5.7 mg/dL 09/03/2015 9:[address] [facility] CREATININE, URINE 89.7 40.0 - 278.0 mg/dL 09/03/2015 9:[address] [facility] Comment: Reference Range varies with fluid intake and diet. MICROALBUMIN/CR EAT RATIO, UR 63.5 mg/g Creatinine 09/03/2015 9:[address] [facility] Comment: Condition mg/g Creatinine Normal Males <17 Normal Females <25 Microalbuminuria Males 17-299 Microalbuminuria Females 25-299 Overt proteinuria >=300 Urine URINE SPECIMEN OBTAINED BY CLEAN CATCH PROCEDURE / Unknown Collection / Unknown 09/03/2015 9:40 AM CDT 09/03/2015 8:36 PM CDT Amy Valenzuela FUNERAL PROFESSIONAL URINE ORDERABLES Final Result Performing Organization Address City/[facility]/ZIP Co de Phone Number [facility] CLIA# [id number] [address] [place] [address] * (ABNORMAL) LIPID PANEL (09/03/2015 9:40 AM CDT) CHOLESTEROL 140 <200 mg/dL 09/03/2015 9:[address] [facility] TRIGLYCERIDE 177(H) <150 mg/dL 09/03/2015 9:[address] [facility] HDL 21(L) 40 - 59 mg/dL 09/03/2015 9:[address] [facility] LDL CALCULATED 84 <100 mg/dL 09/03/2015 9:[address] [facility] NON-HDL CHOLESTEROL 119 <130 mg/dL 09/03/2015 9:[address] [facility] Blood Collection / Unknown 09/03/2015 9:40 AM CDT 09/03/2015 8:[address] [facility] E - 09/03/2015 9:38 PM CDT TOTAL CHOLESTEROL mg/dL Desirable <200 Borderline high 200-239 High >=240 TRIGLYCERIDES mg/dL Normal <150 Borderline high 150-199 High 200-499 Very high >=500 HDL CHOLESTEROL mg/dL Low <40 Normal 40-59 Desirable >=60 LDL CHOLESTEROL mg/dL Optimal <100 Low risk 100-129 Borderline high 130-159 High 160-189 Very high >=190 NON HDL CHOLESTEROL mg/dL Optimal <130 Near Optimal 130-159 Borderline High 160-189 High 190-219 Very high >=220 Based on AHA/NCEP Guidelines Amy Valenzuela FUNERAL PROFESSIONAL CHEMISTRY ORDERAB LES Final Result [facility] E[facility] CLIA# [id number] [address] [place] [address] from Last 3 Months or Most Recently Relevant to Health Maintenance Insurance MEDICAID [place] Member Subscriber Plan / Payer (Ef fective 2022-Present) Name:Yaya Astudillo Relation to Subscriber:Self Name:Yaya Astudillo Payer ID:Not on file Group ID:Not on file Type:Medicaid Address: [address] DUAL ADVANTAGE O [facility] Care Teams Digital Publishing Specialist Relationship Specialty Start Date End Date Adolph Pal MD [address] [place] [address] PCP - General Pediatrics 05/25/20
--- OUTSIDE RECORDS SUMMARY | 2024-10-08 15:11 | XMS_ITS | Encounter Summary ---
Author Organization [facility] Address [address] [place] [address] Care Team Providers Care Hearing Impaired Itinerant Teacher Name Role Phone Adolph Pal MD Primary Care Provider [phone] Encounter Details Date Type Department Care Team (Late st Contact Info) Description 02/07/2013 Ancillary Orders [facility] [place] [address] [place] [address] Sick Social History Tobacco Use Types Packs/Day Years Used Date Smoking Tobacco: Never Alcohol Use Standard Drinks/Week Comments No 0 (1 standard drink = 0.6 oz pur e alcohol) Sex and Gender Information Value Date Recorded Sex Assigned at Not on file Legal 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 Male 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 Gender Identity Not on file Sexual Orientation Not on file Occupation Industry Job Start Date Job End Date Not on file Not on file Not on file Not on file documented as of this encounter Plan of Treatment Not on file documented as of this encounter Procedures Procedure Name Priority Date/Time Associated Diagnosis Comments HEMOGLOBIN A1C Routine 02/07/2013 8:34 PM CDT Sick [ICD-9-CM] COMPREHENSIVE METABOLIC PANEL Routine 02/07/2013 8:34 PM CDT Sick [ICD-9-CM] documented in this encounter Results * (ABNORMAL) COMPREHENSIVE METABOLIC PANEL (02/07/2013 8:34 PM CDT) SODIUM 135(L) 136 - 145 mmol/L 02/07/2013 10:37 PM CDT [facility] [place] POTASSIUM 4.0 3.5 - 5.1 mmol/L 02/07/2013 10:37 PM CDT [facility] [place] CHLORIDE 100 98 - 107 mmol/L 02/07/2013 10:37 PM CDT [facility] [place] CO2 23 21 - 32 mmol/L 02/07/2013 10:37 PM [facility] [facility] CALCIUM 9.2 8.5 - 10.1 mg/dL 02/07/2013 10:37 PM [facility] [employer] [facility] BUN 19(H) 7 - 18 mg/dL 02/07/2013 10:37 PM [facility] CREATININE 1.20 0.60 - 1.30 mg/dL 02/07/2013 10:37 PM [facility] [employer] [facility] GLUCOSE 320(H) 74 - 106 mg/dL 02/07/2013 10:37 PM [facility] [employer] [facility] TOTAL PROTEIN 7.5 6.4 - 8.2 g/dL 02/07/2013 10:37 PM [facility] ALBUMIN 3.9 3.4 - 5.0 g/dL 02/07/2013 10:37 PM [facility] [employer] [facility] BILIRUBIN TOTAL 0.4 0.2 - 1.0 mg/dL 02/07/2013 10:37 PM [facility] [employer] [facility] ALKALINE PHOSPHATASE 117 50 - 136 U/L 02/07/2013 10:37 PM [facility] [employer] [facility] AST 30 15 - 37 U/L 02/07/2013 10:37 PM [facility] [employer] [facility] ALT 47 30 - 65 U/L 02/07/2013 10:37 PM [facility] GFR 62 >=60 mL/min/1.7 3 sq meter 02/07/2013 10:37 PM [facility] Comment: eGFR has not been [...] on National Kidney Disease Education Program GFR, 76 >=60 mL/min/1.7 3 sq meter 02/07/2013 10:37 PM [facility] [employer] [facility] Comment: eGFR has not been validated for [...] Kidney Disease Education Program Blood specimen (specimen) Collection / Unknown 02/07/2013 8:34 PM CDT 02/07/2013 9:37 PM CDT us Summer Escalona [facility] CHEMISTRY ORDERABLES Final Resul t Performing Organization Address [facility] de Phone Number [facility] [employer] [id number] [address] [place] [address] * (ABNORMAL) HEMOGLOBIN A1C (02/07/2013 8:34 PM CDT) HEMOGLOBIN A1C 9.9(H) 4.5 - 6.2 % 02/07/2013 10:55 PM CDT [facility] EST. AVG GLUCOSE, A1C 237 mg/dL 02/07/2013 10:55 PM CDT [facility] [employer] [facility] Blood specimen (specimen) Collection / Unknown 02/07/2013 8:34 PM CDT 02/07/2013 9:37 PM CDT us Summer Escalona [facility] CHEMISTRY ORDERABLES Final Resul t Performing Organization Address [facility] de Phone Number [facility] [employer] [facility] CLIA # [id number] [address] [place] [address] documented in this encounter Visit Diagnoses Diagnosis Sick Other unknown and unspecified cause of morbidity or mortality documented in this encounter Care Teams Hearing Impaired Itinerant Teacher Relationship Specialty Start Date End Date Adolph aPl MD [address] [place] [address] PCP - General Pediatrics 05/25/20 documented as of this encounter
--- OUTSIDE RECORDS SUMMARY | 2024-10-08 15:11 | XMS_ITS | Encounter Summary ---
Author Organization [facility] Address [address] [place] [address] Care Team Providers Care Senior Advisory Name Role Phone Adolph Pal MD Primary Care Provider [phone] Reason for Referral * Radiology Services (Urgent) - Closed Specialty Diagnoses / Procedures Referred By Contac t Referred To Contact Radiology Diagnoses Stage 3a chronic kidney disease (CMS/HCC) Procedures US RENAL AND BLADDER US RENAL Teri Dunham NP [address] [place] [address] Phone: tel: fax: [facility] [address] [place] [address] Phone: tel: fax: Referral ID Status Reason Start Date Expiration Date Visits Re quested Visits Authorized [id number] Closed 05/23/2020 06/23/2021 1 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 No / Unsure 05/23/2020 4:17 PM OWNER OPERATOR TANKER TRUCK DRIVER documented as of this encounter Plan of Treatment Not on file documented as of this encounter Results * US RENAL AND BLADDER (05/25/2020 9:00 AM OWNER OPERATOR TANKER TRUCK DRIVER) Anatomical Region Laterality Modality Abdomen Ultrasound 05/25/2020 9:00 AM OWNER OPERATOR TANKER TRUCK DRIVER Impressions 05/25/2020 10:00 PM OWNER OPERATOR TANKER TRUCK DRIVER IMPRESSION: No significant ultrasound abnormality noted. [id number] Narrative 05/25/2020 10:00 PM OWNER OPERATOR TANKER TRUCK DRIVER Exam: US RENAL AND BLADDER Date/Time of Exam: 05/25/2020 9:00 AM Reason For Exam: See Diagnosis. Diagnosis: Stage 3a chronic kidney disease. Findings:There are no comparisons. The right kidney is 11.1 cm in length. The right kidney is smooth in contour. The cortex is of normal thickness and echo content. No cystic or solid lesions or calculi are noted. There is no hydronephrosis. The left kidney is 11.7 cm in length. The left kidney is lobulated. The cortex is of normal thickness and echo content. No cystic or solid lesions or calculi are noted. There is no hydronephrosis. The urinary bladder is unremarkable. Procedure Note Roxanne Perera MD - 05/25/2020 Exam: US RENAL AND BLADDER Date/Time of Exam: 05/25/2020 9:00 AM Reason For Exam: See Diagnosis. Diagnosis: Stage 3a chronic kidney disease. Findings:There are no comparisons. The right kidney is 11.1 cm in length. The right kidney is smooth in contour. The cortex is of normal thickness and echo content. No cystic or solid lesions or calculi are noted. There is no hydronephrosis. The left kidney is 11.7 cm in length. The left kidney is lobulated. The cortex is of normal thickness and echo content. No cystic or solid lesions or calculi are noted. There is no hydronephrosis. The urinary bladder is unremarkable. IMPRESSION: No significant ultrasound abnormality noted. [id number] us Teri Dunham MARKLOGIC DEVELOPER US ORDERABLES Anupama dylan Result documented in this encounter Visit Diagnoses Diagnosis Stage 3a chronic kidney disease (CMS/HCC) Stage 3a chronic kidney disease (CMS/HCC) documented in this encounter Care Teams Senior Advisory Relationship Specialty Start Date End Date Adolph Pal MD [address] [place] [address] PCP - General Pediatrics 05/25/20 documented as of this encounter
--- OUTSIDE RECORDS SUMMARY | 2024-10-08 15:11 | XMS_ITS | Encounter Summary ---
Author Organization [employer] [facility] Address [address] [place] [address] Care Team Providers Care Retirement Manager Name Role Phone Adolph Pal MD Primary Care Provider [phone] Encounter Details Date Type Department Care Team (Latest Contact Info) Description 10/17/2013 Ancillary Orders [facility] General Laboratory Services [place] [address] [place] [address] Type II or unspecified type diabetes mellitus without mention of complication, not stated as uncontrolled (CMS/[facility]) Social History Tobacco Use Types Packs/Day Years Used Date Smoking Tobacco: Never Alcohol Use Standard Drinks/Week Comments No 0 (1 standard drink = 0.6 oz pur e alcohol) Sex and Gender Information Value Date Recorded Sex Assigned at Not on file Legal Sex Male 4:49 AM ECONOMIC CONSULTANT Gender Identity Not on file Sexual Orientation Not on file Occupation Industry Job Start Date Job End Date Not on file Not on file Not on file Not on file documented as of this encounter Plan of Treatment Not on file documented as of this encounter Procedures Procedure Name Priority Date/Time Associated Diagnosis Comments HEMOGLOBIN A1C Routine 10/17/2013 8:30 PM CDT Type II or unspecified type diabetes mellitus without mention of complication, not stated as uncontrolled [ICD-9-CM] LIPID PANEL Routine 10/17/2013 8:30 PM CDT Type II or unspecified type diabetes mellitus without mention of complication, not stated as uncontrolled [ICD-9-CM] COMPREHENSIVE METABOLIC PANEL Routine 10/17/2013 8:30 PM CDT Type II or unspecified type diabetes mellitus without mention of complication, not stated as uncontrolled [ICD-9-CM] documented in this encounter Results * (ABNORMAL) LIPID PANEL (10/17/2013 8:30 PM CDT) CHOLESTEROL 164 130 - 200 mg/dL 10/17/2013 9:49 PM CDT [facility] TRIGLYCERIDE 383(H) 30 - 200 mg/dL 10/17/2013 9:49 PM CDT [facility] HDL 21(L) 35 - 80 mg/dL 10/17/2013 9:49 PM CDT [facility] LDL CALCULATED 66 0 - 100 mg/dL 10/17/2013 9:49 PM CDT [facility] Blood 10/17/2013 8:30 PM CDT 10/17/2013 9:10 PM CDT Narrative [facility] - 10/17/2013 9:49 PM CDT TOTAL CHOLESTEROL mg/dL Desirable <200 Borderline high 200-239 High >=240 TRIGLYCERIDES mg/dL Normal <150 Borderline high 150-199 High 200-499 Very high >=500 HDL CHOLESTEROL mg/dL Low <40 Normal 40-60 Desirable >60 LDL CHOLESTEROL mg/dL Optimal <100 Low risk 100-129 Borderline high 130-159 High 160-189 Very high >=190 Based on AHA/NCEP Guidelines Linda Bazan [facility] CHEMISTRY ORDERABLES Final Resu lt [facility] CLIA # [id number] [address] [place] [address] * (ABNORMAL) HEMOGLOBIN A1C (10/17/2013 8:30 PM CDT) HEMOGLOBIN A1C 14.6(H) 4.5 - 6.2 % 10/17/2013 10:18 PM CDT [facility] EST. AVG GLUCOSE, A1C 372 mg/dL 10/17/2013 10:18 PM CDT [facility] Blood 10/17/2013 8:30 PM CDT 10/17/2013 9:10 PM CDT us Linda Bazan BILINGUAL SPEECH THERAPIST CHEMISTRY ORDERABLES Final Resu lt [facility] [place] CLIA # [id number] [address] [place] [address] * (ABNORMAL) COMPREHENSIVE METABOLIC PANEL (10/17/2013 8:30 PM CDT) SODIUM 136 136 - 145 mmol/L 10/17/2013 9:50 PM CDT [facility] [place] POTASSIUM 4.3 3.5 - 5.1 mmol/L 10/17/2013 9:50 PM CDT [facility] [place] CHLORIDE 101 98 - 107 mmol/L 10/17/2013 9:50 PM CDT [facility] [place] [place] CO2 25 21 - 32 mmol/L 10/17/2013 9:50 PM CDT [facility] [place] CALCIUM 9.1 8.5 - 10.1 mg/dL 10/17/2013 9:50 PM CDT [facility] [place] BUN 18 7 - 18 mg/dL 10/17/2013 9:50 PM CDT [facility] [place] CREATININE 1.50(H) 0.60 - 1.30 mg/dL 10/17/2013 9:50 PM CDT [facility] [place] GLUCOSE 377(H) 74 - 106 mg/dL 10/17/2013 9:50 PM T [facility] [place] TOTAL PROTEIN 7.5 6.4 - 8.2 g/dL 10/17/2013 9:50 PM CDT [facility] [place] [place] ALBUMIN 3.9 3.4 - 5.0 g/dL 10/17/2013 9:50 PM CDT [facility] [place] BILIRUBIN TOTAL 0.3 0.2 - 1.0 mg/dL 10/17/2013 9:50 PM CDT [facility] [place] [place] ALKALINE PHOSPHATASE 128 50 - 136 U/L 10/17/2013 9:50 PM CDT [facility] [place] AST 31 15 - 37 U/L 10/17/2013 9:50 PM CDT [facility] [place] ALT 55 30 - 65 U/L 10/17/2013 9:50 PM CDT [facility] [place] GFR 48(L) >=60 mL/min/1.7 3 sq meter 10/17/2013 9:50 PM CDT [employer] [facility] [place] Comment: eGFR has not been validated for [...] please refer to the GFR result. GFR, 58(L) >=60 mL/min/1.7 3 sq meter 10/17/2013 9:50 PM CDT [facility] [employer] [facility] Blood 10/17/2013 8:30 PM CDT 10/17/2013 9:10 PM CDT Linda Bazan BILINGUAL SPEECH THERAPIST CHEMISTRY ORDERABLES Final Resu lt [employer] [facility] CLIA # [id number] [address] [place] [address] documented in this encounter Visit Diagnoses Diagnosis Type II or unspecified type diabetes mellitus without mention of complication, not stated as uncontrolled documented in this encounter Care Teams Retirement Manager Relationship Specialty Start Date End Date Adolph Pal MD [address] [place] [address] PCP - General Pediatrics 05/25/20 documented as of this encounter
--- OUTSIDE RECORDS SUMMARY | 2024-10-08 15:11 | XMS_ITS | Encounter Summary ---
Author Organization [employer] [facility] Address [address] [place] [address] Care Team Providers Care Internal Wholesaler Name Role Phone Adolph Pal MD Primary Care Provider [phone] Encounter Details Date Type Department Care Team (Late st Contact Info) Description 03/13/2014 Ancillary Orders [facility] Laboratory Services [place] [address] [place] [address] Social History Tobacco Use Types Packs/Day Years Used Date Smoking Tobacco: Never Alcohol Use Standard Drinks/Week Comments No 0 (1 standard drink = 0.6 oz pur e alcohol) Sex and Gender Information Value Date Recorded Sex Assigned at Not on file Legal Sex Male 4:49 AM 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 LEAD 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 MARKETING Gender Identity Not on file Sexual Orientation Not on file Occupation Industry Job Start Date Job End Date Not on file Not on file Not on file Not on file documented as of this encounter Plan of Treatment Not on file documented as of this encounter Procedures Procedure Name Priority Date/Time Associated Diagnosis Comments HEMOGLOBIN A1C Routine 03/13/2014 8:52 PM HUMAN INSIGHTS LEAD [employer]S MARKETING COMPREHENSIVE METABOLIC PANEL Routine 03/13/2014 8:52 PM HUMAN INSIGHTS LEAD [employer] MARKETING documented in this encounter Results * (ABNORMAL) HEMOGLOBIN A1C (03/13/2014 8:52 PM HUMAN INSIGHTS LEAD ADS MARKETING) HEMOGLOBIN A1C 10.8(H) 4.5 - 6.2 % 03/14/2014 12:40 AM HUMAN INSIGHTS LEAD ADS MARKETING [facility] EST. AVG GLUCOSE, A1C 263 mg/dL 03/14/2014 12:40 AM HUMAN INSIGHTS LEAD ADS MARKETING [facility] Blood 03/13/2014 8:52 PM HUMAN INSIGHTS LEAD ADS MARKETING 03/13/2014 10:50 PM HUMAN INSIGHTS LEAD ADS MARKETING Andres RUANO CHEMISTRY ORDERABLES Final R esult [facility] [place] CLIA # [id number] [address] [address] * (ABNORMAL) COMPREHENSIVE METABOLIC PANEL (03/13/2014 8:52 PM HUMAN INSIGHTS LEAD ADS MARKETING) SODIUM 137 136 - 145 mmol/L 03/13/2014 11:50 PM [facility] [place] POTASSIUM 4.2 3.5 - 5.1 mmol/L 03/13/2014 11:50 PM [facility] [place] CHLORIDE 99 98 - 107 mmol/L 03/13/2014 11:50 PM [facility] [place] CO2 28 21 - 32 mmol/L 03/13/2014 11:50 PM [facility] [place] CALCIUM 9.9 8.5 - 10.1 mg/dL 03/13/2014 11:50 PM [facility] BUN 17 7 - 18 mg/dL 03/13/2014 11:50 PM [facility] CREATININE 1.30 0.60 - 1.30 mg/dL 03/13/2014 11:50 PM [facility] GLUCOSE 355(H) 74 - 106 mg/dL 03/13/2014 11:50 PM [facility] TOTAL PROTEIN 7.6 6.4 - 8.2 g/dL 03/13/2014 11:50 PM [facility] ALBUMIN 4.0 3.4 - 5.0 g/dL 03/13/2014 11:50 PM [facility] [place] BILIRUBIN TOTAL 0.6 0.2 - 1.0 mg/dL 03/13/2014 11:50 PM [facility] [place] ALKALINE PHOSPHATASE 89 46 - 116 U/L 03/13/2014 11:50 PM [facility] Sara Campbell LABORATORY [facility] [place] AST 47(H) 15 - 37 U/L 03/13/2014 11:50 PM [facility] [place] ALT 58 30 - 65 U/L 03/13/2014 11:50 PM [facility] [employer] [facility] [place] GFR 57(L) >=60 mL/min/1.7 3 sq meter 03/13/2014 11:50 PM [facility] [employer] [facility] Comment: eGFR has not been validated for [...] GFR, >60 >=60 mL/min/1.7 3 sq meter 03/13/2014 11:50 PM [facility] [employer] [facility] ANION GAP 10(L) 12 - 20 mmol/L 03/13/2014 11:50 PM [facility] Blood 03/13/2014 8:52 PM HUMAN INSIGHTS LEAD [employer] MARKETING 03/13/2014 10:50 PM HUMAN INSIGHTS LEAD ADS MARKETING Narrative [facility] - 03/13/2014 11:50 PM HUMAN INSIGHTS LEAD ADS MARKETING Effective 12/15/2013, the Alkaline Phosphatase test method and reference range have changed. Please take this into consideration when interpreting results prior to or after this date. Andres RUANO CHEMISTRY ORDERABLES Final R esult [id number] [address] [place] [address] documented in this encounter Visit Diagnoses Not on filedocumented in this encounter Care Teams Internal Wholesaler Relationship Specialty Start Date End Date Adolph Pal MD [address] [place] [phone] PCP - General Pediatrics 05/25/20 documented as of this encounter
--- OUTSIDE RECORDS SUMMARY | 2024-10-08 15:11 | XMS_ITS | Encounter Summary ---
Author Organization [employer] [facility] Address [address] [place] [address] Care Team Providers Care Police Matron Name Role Phone Adolph Pal MD Primary Care Provider [phone] Encounter Details Date Type Department Care Team (Late st Contact Info) Description 08/14/2014 Lab Requisition [facility] Laboratory Services [place] [address] [place] [address] Randy Menendez, DO [address] [place] [phone] Other unknown and unspecified cause of morbidity or mortality Social History Tobacco Use Types Packs/Day Years Used Date Smoking Tobacco: Never Alcohol Use Standard Drinks/Week Comments No 0 (1 standard drink = 0.6 oz pur e alcohol) Sex and Gender Information Value Date Recorded Sex Assigned at Not on file 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 Gender Identity Not on file Sexual Orientation Not on file Occupation Industry Job Start Date Job End Date Not on file Not on file Not on file Not on file documented as of this encounter Plan of Treatment Not on file documented as of this encounter Procedures Procedure Name Priority Date/Time Associated Diagnosis Comments HEMOGLOBIN A1C Routine 08/14/2014 10:00 PM CDT Other unknown and unspecified cause of morbidity or mortality [ICD-9-CM] COMPREHENSIVE METABOLIC PANEL Routine 08/14/2014 10:00 PM CDT Other unknown and unspecified cause of morbidity or mortality [ICD-9-CM] documented in this encounter Results * (ABNORMAL) HEMOGLOBIN A1C (08/14/2014 10:00 PM CDT) HEMOGLOBIN A1C 10.6(H) 4.5 - 6.2 % 08/15/2014 1:30 AM CDT [facility] [place] EST. AVG GLUCOSE, A1C 258 mg/dL 08/15/2014 1:30 AM T [facility] Blood Collection / Unknown 08/14/2014 10:00 PM CDT 08/14/2014 10:00 PM CDT us Randy Menendez DO CHEMISTRY ORDERABLES Final Resu lt [facility] [place] CLIA # [id number] [address] [place] [address] * (ABNORMAL) COMPREHENSIVE METABOLIC PANEL (08/14/2014 10:00 PM CDT) SODIUM 138 136 - 145 mmol/L 08/14/2014 11:47 PM T [facility] POTASSIUM 3.9 3.5 - 5.1 mmol/L 08/14/2014 11:47 PM T [facility] [place] CHLORIDE 103 98 - 107 mmol/L 08/14/2014 11:47 PM T [facility] [place] CO2 25 21 - 32 mmol/L 08/14/2014 11:47 PM T [facility] [employer] [facility] [place] CALCIUM 9.2 8.5 - 10.1 mg/dL 08/14/2014 11:47 PM T [facility] [employer] [facility] BUN 25(H) 7 - 18 mg/dL 08/14/2014 11:47 PM T [facility] CREATININE 1.30 0.60 - 1.30 mg/dL 08/14/2014 11:47 PM T [facility] [place] GLUCOSE 195(H) 74 - 106 mg/dL 08/14/2014 11:47 PM T [facility] [place] [facility] TOTAL PROTEIN 7.4 6.4 - 8.2 g/dL 08/14/2014 11:47 PM T [facility] [place] [facility] ALBUMIN 3.8 3.4 - 5.0 g/dL 08/14/2014 11:47 PM T [facility] [place] [facility] BILIRUBIN TOTAL 0.3 0.2 - 1.0 mg/dL 08/14/2014 11:47 PM T [facility] ALKALINE PHOSPHATASE 82 46 - 116 U/L 08/14/2014 11:47 PM [facility] AST 26 15 - 37 U/L 08/14/2014 11:47 PM [facility] ALT 39 30 - 65 U/L 08/14/2014 11:47 PM T [facility] GFR 57(L) >=60 mL/min/1.7 3 sq meter 08/14/2014 11:47 PM [facility] [employer] [facility] Comment: eGFR has not been validated for [...] GFR, >60 >=60 mL/min/1.7 3 sq meter 08/14/2014 11:47 PM T [facility] [employer] [facility] ANION GAP 10(L) 12 - 20 mmol/L 08/14/2014 11:47 PM [facility] [employer] [facility] Blood Collection / Unknown 08/14/2014 10:00 PM CDT 08/14/2014 10:00 PM CDT Narrative [facility] [employer] [facility] - 08/14/2014 11:47 PM CDT Effective 12/15/2013, the Alkaline Phosphatase test method and reference range have changed. Please take this into consideration when interpreting results prior to or after this date. us Randy Menendez DO CHEMISTRY ORDERABLES Final Resu lt [facility] [employer] [facility] CLIA # [id number] [address] [place] [address] documented in this encounter Visit Diagnoses Diagnosis Other unknown and unspecified cause of morbidity or mortality documented in this encounter Care Teams Police Matron Relationship Specialty Start Date End Date Adolph Pal MD [address] [place] [phone] PCP - General Pediatrics 05/25/20 documented as of this encounter
--- OUTSIDE RECORDS SUMMARY | 2024-10-08 15:11 | XMS_ITS | Clinical Summary ---
Author Organization [facility] Address [address] [place] [address] Care Team Providers Care Operations Research Analyst Name Role Phone Adolph Pal MD Primary Care Provider [phone] Allergies No known active allergies Medications aspirin (NICOL) 325 mg tablet Take 325 mg by mouth daily. Active pantoprazole (PROTONIX) 40 mg Tablet, Delayed Release (E.C.) Take 40 mg by mouth daily. Active metoprolol tartrate (LOPRESSOR) 50 mg tablet Take 1 Tablet (50 mg) by mouth 2 times daily. 60 Tablet 5 6 Active amLODIPine (NORVASC) 5 mg tabletIndications:E ssential hypertension Take 1 Tablet (5 mg) by mouth daily. 90 Tablet 1 6 Active sitaGLIPtin (JANUVIA) 100 mg TabletIndications:T ype 2 diabetes mellitus without complication (CMS/HCC) Take 1 Tablet (100 mg) by mouth daily with breakfast. 90 Tablet 1 6 Active pravastatin (PRAVACHOL) 10 mg tabletIndications:M ixed hyperlipidemia Take 1 Tablet (10 mg) by mouth daily. 90 Tablet 1 6 Active lancets 30 gauge Use bid to check blood sugars, Dx E11.9, . 100 Each 6 Active Insulin Anderson, Disposable, (BD INSULIN PEN NEEDLE UF MINI) 31 gauge x 3/16 Needle DX:code E11.9. 90 Each 6 Active Insulin Anderson, Disposable, 31 gauge x 3/16 Needle For levemir flex pen and novolog flex pen. 100 Each 6 Active lisinopril (PRINIVIL) 20 mg tablet TAKE ONE TABLET BY MOUTH TWICE DAILY 90 Tablet 0 6 Active ONETOUCH VERIO Strip TEST BLOOD SUGAR TWICE DAILY (E11.9) 100 Strip 5 6 Active NOVOLOG MIX 70-30FLEXPEN U-100 100 unit/mL (70-30) pen syringe INJECT 45 UNITS SUB-Q BEFORE EACH MEAL 9 mL 8 Active LEVEMIR FLEXTOUCH U-100 INSULN 100 unit/mL (3 mL) pen syringe INJECT 20 UNITS SUB-Q EVERY MORNING AND 55 UNITS IN THE EVENING 9 mL 8 Active Active Problems Problem Noted Date Diagnosed Date Diabetic autonomic neuropath y associated with diabetes mellitus due to underlying condition 01/16/2015 Umbilical hernia Type 2 diabetes mellitus without complication HTN (hypertension) NV (myocardial infarction) Family History Medical History Relation Name Comments [...] on file Legal Sex 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 Gender Identity Not on file Sexual Orientation Not on file Occupation Industry Job Start Date Job End Date Not on file Not on file Not on file Not on file Last Filed Vital Signs Vital Sign Reading Time Taken Comments Blood Pressure 109/58 06/17/2017 12:00 PM INTERNAL CONTROL ANALYST Pulse 78 06/17/2017 12:00 PM INTERNAL CONTROL ANALYST Temperature 36.6 C (97.8 F) 06/17/2017 10:27 AM INTERNAL CONTROL ANALYST Respiratory Rate 20 06/17/2017 12:00 PM INTERNAL CONTROL ANALYST Oxygen Saturation 96% 06/17/2017 12:00 PM INTERNAL CONTROL ANALYST Inhaled Oxygen Concentration - - Weight 101.6 kg (224 lb) 06/17/2017 8:08 AM INTERNAL CONTROL ANALYST Height 172.7 cm (5' 8 ) 06/17/2017 8:08 AM INTERNAL CONTROL ANALYST Body Mass Index 34.06 06/17/2017 8:08 AM INTERNAL CONTROL ANALYST Plan of Treatment Health Maintenance Due Date Last Done Comments DIABETES ANNUAL RETINAL EXAM 10/13/1973 DTAP/TDAP/TD VACCINES (1 - Tdap) 10/13/1974 PNEUMOCOCCAL VACCINE 50+ YEA RS (1 of 2 - PCV) 10/13/1974 COLORECTAL SCREENING 10/13/2000 Colorectal Cancer Screening 10/13/2000 FIT-DNA Q 3 years 10/13/2000 FIT/FOBT Q 1 year 10/13/2000 Flex Sig/CT Colonography Q 5 years 10/13/2000 ZOSTER VACCINE (1 of 2) 10/13/2005 RSV VACCINE (60+ or ) (1 - Risk 60-74 years 1-dose series) 2015 DIABETES HBA1C Q 6 MONTHS 06/05/20162015, 09/03/2015, 05/11/2015, Additional history exists DIABETES ANNUAL FOOT EXAM 09/02/20162015, 03/11/2015, 02/15/2015 DIABETES MICROALBUMIN ANNUAL SCREEN 09/02/2016 09/03/2015 LDL CHOLESTEROL ANNUAL 09/02/2016 6, 10/31/2013, 10/17/2013, Additional history exists INFLUENZA VACCINE (#1) 2023 Medical Devices Implanted Type Area Spray Applicator Device Identifier Shelf Expiration Date Model / Serial / Lot Lens Io Bi-Aspheric Softechd+19.50 - [id number] Implanted:Qty: 1 on 04/01/2017 by Lev Todd MD at [facility] Eye Right: Eye [employer] 02/26/2021 SOFTECHD+19 .50 / [id number] / Lens Io Bi-Aspheric Softechd+19.50 - [id number] Implanted:Qty: 1 on 06/17/2017 by Lev Todd MD at [facility] Eye Left: Eye [employer] 11/19/2021 SOFTECHD+19 .50 / [id number] / Procedures Procedure Name Priority Date/Time Associated Diagnosis Comments HEMOGLOBIN A1C Routine 12/04/2015 9:39 AM CDT Type 2 diabetes mellitus without complication (CMS/HCC) MICROALBUMIN/CREATI NINE RATIO, RANDOM UR Routine 09/03/2015 9:40 AM CDT Type 2 diabetes mellitus without complication (CMS/HCC) ST elevation myocardial infarction (STEMI), unspecified artery (CMS/HCC) 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 ([facility]) LIPID PANEL Routine 09/03/2015 9:40 AM CDT Type 2 diabetes mellitus without complication ([facility]) ST elevation myocardial infarction (STEMI), unspecified artery ([facility]) Essential hypertension Mixed hyperlipidemia from Last 3 Months or Most Recently Relevant to Health Maintenance Results * (ABNORMAL) HEMOGLOBIN A1C (12/04/2015 9:39 AM CDT) HEMOGLOBIN A1C 11.7(H) 4.0 - 6.0 % 12/05/2015 9:15 AM CDT [facility] EST. AVG GLUCOSE, A1C 289 mg/dL 12/05/2015 9:15 AM CDT [facility] Blood Collection / Unknown 12/04/2015 9:39 AM CDT 12/04/2015 8:20 PM CDT Narrative [facility] - 12/05/2015 9:15 AM CDT Falsely low A1C measurements can occur when: 1. Anemia and/or hemolytic anemia is present. 2. Hemoglobin variants present. 3. Renal failure. 4. Transfusion of blood product in the last 120 days. We recommend ordering a fructosamine test(ASF6508) to more accurately assess glycemic status if any of the above conditions are present. Amy Valenzuela APRN CHEMISTRY ORDERAB LES Final Result [facility] CLIA# [id number] [address] [place] [id number] * MICROALBUMIN/CREATININE RATIO, RANDOM UR (09/03/2015 9:40 AM CDT) MICROALBUMIN, URINE 5.7 mg/dL 09/03/2015 9:23 PM CDT [facility] CREATININE, URINE 89.7 40.0 - 278.0 mg/dL 09/03/2015 9:23 PM CDT [facility] Comment: Reference Range varies with fluid intake and diet. MICROALBUMIN/CR EAT RATIO, UR 63.5 mg/g Creatinine 09/03/2015 9:23 PM CDT [facility] Comment: Condition mg/g Creatinine Normal Males <17 Normal Females <25 Microalbuminuria Males 17-299 Microalbuminuria Females 25-299 Overt proteinuria >=300 Urine URINE SPECIMEN OBTAINED BY CLEAN CATCH PROCEDURE / Unknown Collection / Unknown 09/03/2015 9:40 AM CDT 09/03/2015 8:36 PM CDT Amy Valenzuela MARKETING AGENT URINE ORDERABLES Final Result [facility] CLIA# [id number] [address] [place] [id number] * (ABNORMAL) LIPID PANEL (09/03/2015 9:40 AM CDT) CHOLESTEROL 140 <200 mg/dL 09/03/2015 9:38 PM CDT [facility] TRIGLYCERIDE 177(H) <150 mg/dL 09/03/2015 9:38 PM CDT [facility] HDL 21(L) 40 - 59 mg/dL 09/03/2015 9:38 PM CDT [facility] LDL CALCULATED 84 <100 mg/dL 09/03/2015 9:38 PM CDT [facility] NON-HDL CHOLESTEROL 119 <130 mg/dL 09/03/2015 9:38 PM CDT [facility] Blood Collection / Unknown 09/03/2015 9:40 AM CDT 09/03/2015 8:38 PM CDT Narrative [facility] - 09/03/2015 9:38 PM CDT TOTAL CHOLESTEROL [...] >=220 Based on AHA/NCEP Guidelines Amy Valenzuela MARKETING AGENT CHEMISTRY ORDERAB LES Final Result [facility] CLIA# [id number] [address] [place] [address] from Last 3 Months or Most Recently Relevant to Health Maintenance Insurance [place] [address] [address] Advance Directives For more information, please contact: [phone] * Full Code (Latest Code Status on File) Date Activated Date Inactivated Comments 06/17/2017 8:46 AM 06/17/2017 2:05 PM * Full Code Date Activated Date Inactivated Comments 04/01/2017 9:25 AM 04/01/2017 1:28 PM Care Teams Operations Research Analyst Relationship Specialty Start Date End Date Adolph Pal MD [address] [place] [phone] PCP - General Pediatrics 05/25/20
--- OUTSIDE RECORDS SUMMARY | 2024-10-08 15:11 | XMS_ITS | Continuity of Care Document ---
Author Organization [facility] Address [address] [facility] [address] [place] [address] Insurance Providers Payer Plan Claims Address Claims Phone Policy Number Group Number Relation Employer Guarantor Name Guarantor Guarantor Address Guarantor Phone [employer] [address], [place] [address] tel:[phone] Self Yaay Astudillo [id number], [place] [address] MEDIC AID [address], [place] [address] [id number] Self Yaya Astudillo [address], [place] [address] [place] Medic are Repla cemen t [address], [place] [address] tel:[phone] [id number] Self Yaya Astudillo [address], [place] [address] Problems Unknown Problems Results Test Value / Unit Interpretation Reference Ran ge Lab Report Yaya Astudillo.pd f Allergies, adverse reactions, alerts No known allergies and adverse reactions Medications No administered medications reported Vital Signs No vital signs reported Social History No smoking Hx information available
--- OUTSIDE RECORDS SUMMARY | 2024-10-08 15:11 | XMS_ITS | Data Portability ---
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 Activities of Daily Living:able to bathe with limited or no assistance; able to contol urination and bowels; able to dress with limited or no assistance; able to feed self with limited or no assistance; able to get out of chair or bed with limited or no assistance; able to groom with limited or no assistance; able to toilet with limited or no assistance Instrumental Activities of Daily Living:able to do house work with limited or no assistance; able to grocery shop with limited or no assistance; able to manage money with limited or no assistance; able to prepare meals with limited or no assistance; able to use the phone with limited or no assistance;unable to manage medications without assistance Falls Risk Assessment:no frequent falls while walking; no fall in the past year CHRIS CAMPOS [address] [place], [address], [facility], L.L.CPamela 04/01/2024 11:20:50 06/02/2024 text/html walk inx 5 days chills, vomiting after meals,here x4 days ago for same light head then falls (x 5 this week) Myles Ybarra MD [address] [place], [address], [facility], Zohaib 06/02/2024 18:20:09 06/14/2024 text/html Joint PainReport ed bypatient.Location:escobar ateral shoulder Duration:present for 1-6 months CHRIS CAMPOS [address] [place], [address], [facility], Zohaib 06/24/2024 13:43:34 07/26/2024 text/html DiabetesReported bypatient.Duration:chr onic Control:usually poorly controlled;home blood sugar range high; treated with insulin; hemoglobin A1C has been 8-9; hemoglobin A1C goal is less than 7.5 Compliance:noncomplian t with diet Self Care:monitoring glucose daily Chronic Complications:hyperten harry: Yes; kidney disease: Yes CHRIS CAMPOS [address] [place], [address], [facility] 08/07/2024 21:55:55
--- OUTSIDE RECORDS SUMMARY | 2024-10-08 15:11 | XMS_ITS | Patient Health Record ---
Author Organization [facility] Address [address] [place] [address] Care Team Providers Care Building Superintendent Name Role Phone Janice James APRNn Primary Care Provider Unavaila Michael Ramirez Unavailable [phone] ZAHIRA DYE Unavailable Unavailable Allergies No Known Allergies Reason For Referral No Information Medications Medication SIG (Take, Route, Frequency, Duration) Notes Start Date End Date Status Furosemide 40 MG 1 tablet Orally Once a day Active Cipro Active Lisinopril 20 MG 1 tablet Orally Once a day Active Levemir FlexPen 100 UNIT/ML as directed Subcutaneous Active Tamsulosin HCl 0.4 MG 1 capsule Orally O nce a day Active Victoza 18 MG/3ML as directed Subcutaneous Active Finasteride 5 MG 1 tablet Orally Once a day Active Carbidopa-Levodopa 25-100 MG 1 tablet as needed Orally Two times a Week Active Jardiance 25 MG 1 tablet Orally Once a day Active Nitroglycerin 0.4 MG as directed Sublingual Active Clopidogrel Bisulfate 75 MG 1 tablet Ora lly Once a day Active Aspirin 81 81 MG 1 tablet Orally Once a day Active Metoprolol Tartrate 50 MG 1 tablet with food Orally Twice a day Active Insulin Lispro 100 UNIT/ML as directed Subcutaneous Active Isosorbide Mononitrate ER 60 MG 1 tablet in the morning Orally Once a day Active Pantoprazole Sodium 40 MG 1 tablet Orall y Once a day Active Atorvastatin Calcium 40 MG 1 tablet Oral ly Once a day Active Social History Tobacco Use: Social History Observation Description Date Details (start date - stop date) Former Smoker NA - NA xTobacco Use/Smoking Question Answer Notes Are you a former smoker How long has it been since you last smoked? 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 Plan Of Treatment No Information Insurance Providers Payer Name Payer Address Payer Phone Subscriber Number Group Number Insured Name Patient Relationship to Insured Coverage Start Date Coverage End Date [place] Replacement [address] [place] [address] [id number] Yaya Astudillo Self - patient is the insured [place] Medicaid [address] [place] [address] [id number] Yaya Astudillo Self - patient is the insured Medical (General) History Medical History History ICD Code Arthritis Heart Condition Diabetes Hemorrhoids Hospitalization History Reason Date(Month/Year) Urinary Issue 09/2022
--- OUTSIDE RECORDS SUMMARY | 2024-10-08 15:12 | XMS_ITS | Encounter Summary ---
Author Organization [employer] [facility] Address [address] [place] [address] Care Team Providers Care Pipeline Technician Name Role Phone Adolph Pal MD Primary Care Provider [phone] [phone] Encounter Details Date Type Department Care Team (Late st Contact Info) Description 12/08/2011 Ancillary Orders [facility] General Laboratory Services [place] [address] [place] [address] Sick Social History Tobacco Use Types Packs/Day Years Used Date Smoking Tobacco: Never Alcohol Use Standard Drinks/Week Comments No 0 (1 standard drink = 0.6 oz pur e alcohol) Sex and Gender Information Value Date Recorded Sex Assigned at Not on file 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 Gender Identity Not on file Sexual Orientation Not on file documented as of this encounter Plan of Treatment Not on file documented as of this encounter Procedures Procedure Name Priority Date/Time Associated Diagnosis Comments HEMOGLOBIN A1C Routine 12/08/2011 7:10 PM CDT SICK [ICD-9-CM] COMPREHENSIVE METABOLIC PANEL Routine 12/08/2011 7:10 PM CDT SICK [ICD-9-CM] documented in this encounter Results * (ABNORMAL) COMPREHENSIVE METABOLIC PANEL (12/08/2011 7:10 PM CDT) SODIUM 138 136 - 145 mmol/L 12/08/2011 10:52 PM CDT [facility] [place] POTASSIUM 3.9 3.5 - 5.1 mmol/L 12/08/2011 10:52 PM CDT [facility] [place] CHLORIDE 103 98 - 107 mmol/L 12/08/2011 10:52 PM CDT [facility] [place] CO2 26 21 - 32 mmol/L 12/08/2011 10:52 PM CDT [facility] CALCIUM 8.9 8.5 - 10.1 mg/dL 12/08/2011 10:52 PM [facility] BUN 22(H) 7 - 18 mg/dL 12/08/2011 10:52 PM [facility] CREATININE 1.60(H) 0.60 - 1.30 mg/dL 12/08/2011 10:52 PM [facility] GLUCOSE 182(H) 74 - 106 mg/dL 12/08/2011 10:52 PM [facility] TOTAL PROTEIN 7.6 6.4 - 8.2 g/dL 12/08/2011 10:52 PM [facility] ALBUMIN 4.0 3.4 - 5.0 g/dL 12/08/2011 10:52 PM [facility] BILIRUBIN TOTAL 0.3 0.2 - 1.0 mg/dL 12/08/2011 10:52 PM [facility] ALKALINE PHOSPHATASE 90 50 - 136 U/L 12/08/2011 10:52 PM [facility] AST 23 15 - 37 U/L 12/08/2011 10:52 PM [facility] ALT 45 30 - 65 U/L 12/08/2011 10:52 PM [facility] GFR 45(L) >=60 mL/min/1.7 3 sq meter 12/08/2011 10:52 PM [facility] GFR, 54(L) >=60 mL/min/1.7 3 sq meter 12/08/2011 10:52 PM [facility] Blood specimen (specimen) 12/08/2011 7:10 PM CDT 12/08/2011 10:[address] [facility] - 12/08/2011 10:52 PM CDT eGFR has not been validated for use [...] Based on National Kidney Disease Education Program Randy Menendez DO CHEMISTRY ORDERABLES Final Resu lt Performing Organization Address City/[facility] Co de Phone Number [employer] [facility] CLIA # [id number] [address] [place] [phone] * (ABNORMAL) HEMOGLOBIN A1C (12/08/2011 7:10 PM CDT) HEMOGLOBIN A1C 10.1(H) 4.5 - 6.2 % 12/08/2011 11:36 PM CDT [facility] EST. AVG GLUCOSE, A1C 243 mg/dL 12/08/2011 11:36 PM CDT [facility] [employer] [facility] Blood specimen (specimen) 12/08/2011 7:10 PM CDT 12/08/2011 10:21 PM CDT Randy Menendez DO CHEMISTRY ORDERABLES Final Resu lt Performing Organization Address City/[facility] Co de Phone Number [employer] [facility] CLIA # [id number] [address] [place] [address] documented in this encounter Visit Diagnoses Diagnosis Sick Other unknown and unspecified cause of morbidity or mortality documented in this encounter Care Teams Pipeline Technician Relationship Specialty Start Date End Date Adolph Pal MD [address] [place] [phone] PCP - General Pediatrics 05/25/20 documented as of this encounter
--- OUTSIDE RECORDS SUMMARY | 2024-10-08 15:12 | XMS_ITS | Encounter Summary ---
Author Organization [employer] [facility] Address [address] [place] [address] Care Team Providers Care Motor Express Clerk Name Role Phone Adolph Pal MD Primary Care Provider [phone] [phone] Encounter Details Date Type Department Care Team (Late st Contact Info) Description 08/18/2011 Ancillary Orders [facility] General Laboratory Services [place] [address] [place] [address] Sick Social History Tobacco Use Types Packs/Day Years Used Date Smoking Tobacco: Never Alcohol Use Standard Drinks/Week Comments No 0 (1 standard drink = 0.6 oz pur e alcohol) Sex and Gender Information Value Date Recorded Sex Assigned at Not on file 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 Gender Identity Not on file Sexual Orientation Not on file documented as of this encounter Plan of Treatment Not on file documented as of this encounter Procedures Procedure Name Priority Date/Time Associated Diagnosis Comments HEMOGLOBIN A1C Routine 08/18/2011 6:50 PM CDT SICK [ICD-9-CM] BASIC METABOLIC PANEL Routine 08/18/2011 6:50 PM CDT SICK [ICD-9-CM] documented in this encounter Results * (ABNORMAL) BASIC METABOLIC PANEL (08/18/2011 6:50 PM CDT) SODIUM 137 136 - 145 mmol/L 08/18/2011 11:11 PM CDT [facility] [place] POTASSIUM 4.0 3.5 - 5.1 mmol/L 08/18/2011 11:11 PM CDT [facility] [place] CHLORIDE 99 98 - 107 mmol/L 08/18/2011 11:11 PM CDT [facility] [place] CO2 28 21 - 32 mmol/L 08/18/2011 11:11 PM CDT [facility] CALCIUM 10.2(H) 8.5 - 10.1 mg/dL 08/18/2011 11:11 PM CDT [facility] BUN 14 7 - 18 mg/dL 08/18/2011 11:11 PM CDT [facility] CREATININE 1.40(H) 0.60 - 1.30 mg/dL 08/18/2011 11:11 PM CDT [facility] GLUCOSE 179(H) 74 - 106 mg/dL 08/18/2011 11:11 PM CDT [facility] GFR 53(L) >=60 mL/min/1.7 3 sq meter 08/18/2011 11:11 PM CDT [facility] GFR, 64 >=60 mL/min/1.7 3 sq meter 08/18/2011 11:11 PM T [facility] Blood specimen (specimen) 08/18/2011 6:50 PM CDT 08/18/2011 10:29 PM CDT [facility] - 08/18/2011 11:11 PM CDT eGFR has not been validated [...] supplementation), and patients with severe liver disease. Artie Flanagan DO CHEMISTRY ORDERABLES Final Resu lt [facility] CLIA # [id number] [address] [place] [phone] * (ABNORMAL) HEMOGLOBIN A1C (08/18/2011 6:50 PM CDT) HEMOGLOBIN A1C 9.3(H) 4.5 - 6.2 % 08/18/2011 11:50 PM T [facility] EST. AVG GLUCOSE, A1C 220 mg/dL 08/18/2011 11:50 PM CDT [facility] Blood specimen (specimen) 08/18/2011 6:50 PM CDT 08/18/2011 10:29 PM CDT Artie Flanagan DO CHEMISTRY ORDERABLES Final Resu lt [facility] [place] CLIA # [id number] [address] [facility] [address] [place] [address] documented in this encounter Visit Diagnoses Diagnosis Sick Other unknown and unspecified cause of morbidity or mortality documented in this encounter Care Teams Motor Express Clerk Relationship Specialty Start Date End Date Adolph Pal MD [address] [place] [phone] PCP - General Pediatrics 05/25/20 documented as of this encounter
--- OUTSIDE RECORDS SUMMARY | 2024-10-08 15:12 | XMS_ITS | Encounter Summary ---
Author Organization [facility] Address [address] [place] [address] Care Team Providers Care Irrigation Specialist Name Role Phone Adolph Pal MD Primary Care Provider [phone] [phone] Encounter Details Date Type Department Care Team (Late st Contact Info) Description 12/04/2014 Lab Requisition [facility] Laboratory Services [place] [address] [place] [address] Andres Smipson NP [address] [place] [address] Social History Tobacco Use Types Packs/Day Years Used Date Smoking Tobacco: Never Alcohol Use Standard Drinks/Week Comments No 0 (1 standard drink = 0.6 oz pur e alcohol) Sex and Gender Information Value Date Recorded Sex Assigned at Not on file 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 Blood 12/04/2014 10:4 1 PM CDT 12/04/2014 10:41 PM CDT Andres Simpson NP CHEMISTRY ORDERABLES Final Resu lt [facility] [place] CLIA # [id number] [address] [place] [address] [phone] documented in this encounter Visit Diagnoses Not on filedocumented in this encounter Care Teams Irrigation Specialist Relationship Specialty Start Date End Date Adolph Pal MD [address] [place] [address] PCP - General Pediatrics 05/25/20 documented as of this encounter
--- OUTSIDE RECORDS SUMMARY | 2024-10-08 15:12 | XMS_ITS | Encounter Summary ---
Author Organization [facility] Address [address] [place] [address] Care Team Providers Care Produce Laborer Name Role Phone Adolph Pal MD Primary Care Provider [phone] [phone] Encounter Details Date Type Department Care Team (Late st Contact Info) Description 01/16/2015 Ancillary Orders [facility] Medicine [place] [address] [facility] [address] [place] [address] Amy Valenzuela, SECURITY AMBASSADOR NO ADDRESS ON FILE 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 ([facility]) (Primary Dx); Callous ulcer, limited to breakdown of skin ([facility]) Social History Tobacco Use Types Packs/Day Years Used Date Smoking Tobacco: Former Cigarettes Q uit: 04/13/1984 Smokeless Tobacco: Former Quit: 04/13/1974 Alcohol Use Standard Drinks/Week Comments No 0 (1 standard drink = 0.6 oz pur e alcohol) Sex and Gender Information Value Date Recorded Sex Assigned at Not on file 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 No soft tissue gas or periosteal reaction is seen. IMPRESSION 1. negative for radiographic evidence of osteomyelitis 2. no acute changes seen Procedure Note Edson Grijalva MD - 01/16/2015 PROCEDURE XR RIGHT FOOT, 3 views, 16 January 2015 DESCRIPTION AP, oblique, and lateral views of the right foot show no acute fracture, dislocation, or deformity. No soft tissue gas or periosteal reaction is seen. IMPRESSION 1. negative for radiographic evidence of osteomyelitis 2. no acute changes seen Amy Santierra amarilla SECURITY AMBASSADOR DIAGNOSTIC IMAGIN G ORDERABLES Final Result documented in this encounter Visit Diagnoses Diagnosis 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 (CMS/HCC) Callous ulcer, limited to breakdown of skin (CMS/HCC) 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 (CMS/HCC)- Primary Callous ulcer, limited to breakdown of skin (CMS/HCC) documented in this encounter Care Teams Produce Laborer Relationship Specialty Start Date End Date Adolph Pal MD [address] [place] [phone] PCP - General Pediatrics 05/25/20 documented as of this encounter
--- OUTSIDE RECORDS SUMMARY | 2024-10-08 15:12 | XMS_ITS | Encounter Summary ---
Author Organization [facility] Address [address] [place] [address] Care Team Providers Care [employer] Membership Advisors Name Role Phone Adolph Pal MD Primary Care Provider [phone] Encounter Details Date Type Department Care Team (Late st Contact Info) Description 06/26/2014 Lab Requisition [facility] Laboratory Services [place] [address] [place] [address] Kimber Mendoza, SPLITTER HAND [address] [place] [address] Social History Tobacco Use Types Packs/Day Years Used Date Smoking Tobacco: Never Alcohol Use Standard Drinks/Week Comments No 0 (1 standard drink = 0.6 oz pur e alcohol) Sex and Gender Information Value Date Recorded Sex Assigned at Not on file 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 Gender Identity Not on file Sexual Orientation Not on file Occupation Industry Job Start Date Job End Date Not on file Not on file Not on file Not on file documented as of this encounter Plan of Treatment Not on file documented as of this encounter Procedures Procedure Name Priority Date/Time Associated Diagnosis Comments ALT Routine 06/26/2014 10:23 PM CDT HEMOGLOBIN A1C Routine 06/26/2014 10:23 PM CDT BASIC METABOLIC PANEL Routine 06/26/2014 10:23 PM CDT documented in this encounter Results * (ABNORMAL) HEMOGLOBIN A1C (06/26/2014 10:23 PM CDT) HEMOGLOBIN A1C 11.9(H) 4.5 - 6.2 % 06/27/2014 12:06 AM CDT [facility] LABORATORY SERVICES [facility] EST. AVG GLUCOSE, A1C 295 mg/dL 06/27/2014 12:06 AM CDT [facility] [employer] [facility] Blood 06/26/2014 10:2 3 PM CDT 06/26/2014 10:23 PM CDT Kimber Mendoza SPLITTER HAND CHEMISTRY ORDERABLES Final Result [facility] [employer] [facility] CLIA # [id number] [address] [place] [phone] * (ABNORMAL) BASIC METABOLIC PANEL (06/26/2014 10:23 PM CDT) SODIUM 135(L) 136 - 145 mmol/L 06/26/2014 11:24 PM T [facility] [employer] [facility] POTASSIUM 3.6 3.5 - 5.1 mmol/L 06/26/2014 11:24 PM T [facility] [employer] [facility] CHLORIDE 99 98 - 107 mmol/L 06/26/2014 11:24 PM T [facility] [employer] [facility] CO2 25 21 - 32 mmol/L 06/26/2014 11:24 PM CDT [facility] [employer] [facility] CALCIUM 10.1 8.5 - 10.1 mg/dL 06/26/2014 11:24 PM [facility] [employer] [facility] BUN 25(H) 7 - 18 mg/dL 06/26/2014 11:24 PM [facility] [employer] [facility] CREATININE 1.70(H) 0.60 - 1.30 mg/dL 06/26/2014 11:24 PM T [facility] [employer] [facility] GLUCOSE 236(H) 74 - 106 mg/dL 06/26/2014 11:24 PM T [facility] [employer] [facility] GFR 42(L) >=60 mL/min/1.7 3 sq meter 06/26/2014 11:24 PM [facility] [employer] [facility] Comment: eGFR has not been validated [...] please refer to the GFR result. GFR, 50(L) >=60 mL/min/1.7 3 sq meter 06/26/2014 11:24 PM CDT [email or web address] LABORATORY SERVICES - [place] ANION GAP 11(L) 12 - 20 mmol/L 06/26/2014 11:24 PM CDT [facility] LABORATORY SERVICES - [place] Blood 06/26/2014 10:2 3 PM CDT 06/26/2014 10:23 PM CDT Kimber J Reji SPLITTER HAND CHEMISTRY ORDERABLES Final Result Performing Organization Address City/[facility]/ZIP Co de Phone Number [facility] [employer] [facility] CLIA # [id number] [address] [place] [phone] * ALT (06/26/2014 10:23 PM CDT) ALT 37 30 - 65 U/L 06/26/2014 11:24 PM CDT [facility] [place] [facility] [place] Blood 06/26/2014 10:2 3 PM CDT 06/26/2014 10:23 PM CDT Kimber 91JinRong Reji SPLITTER HAND CHEMISTRY ORDERABLES Final Result Performing Organization Address City/[facility]/ZIP Co de Phone Number [facility] [employer] [facility] CLIA # [id number] [address] [place] [phone] documented in this encounter Visit Diagnoses Not on filedocumented in this encounter Care Teams [employer] Membership Advisors Relationship Specialty Start Date End Date Adolph Pal MD [address] [place] [address] PCP - General Pediatrics 05/25/20 documented as of this encounter
--- OUTSIDE RECORDS SUMMARY | 2024-10-08 15:12 | XMS_ITS | Encounter Summary ---
Author Organization [facility] Address [address] [place] [address] Care Team Providers Care Business Area Director Name Role Phone Adolph Pal MD Primary Care Provider [phone] Encounter Details Date Type Department Care Team (Late st Contact Info) Description 07/05/2012 Ancillary Orders [facility] Laboratory Services [place] [address] [place] [address] Sick Social History Tobacco Use Types Packs/Day Years Used Date Smoking Tobacco: Never Alcohol Use Standard Drinks/Week Comments No 0 (1 standard drink = 0.6 oz pur e alcohol) Sex and Gender Information Value Date Recorded Sex Assigned at Not on file 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 Gender Identity Not on file Sexual Orientation Not on file documented as of this encounter Plan of Treatment Not on file documented as of this encounter Procedures Procedure Name Priority Date/Time Associated Diagnosis Comments HEMOGLOBIN A1C Routine 07/05/2012 8:46 PM CDT Sick [ICD-9-CM] LIPID PANEL Routine 07/05/2012 8:46 PM CDT Sick [ICD-9-CM] COMPREHENSIVE METABOLIC PANEL Routine 07/05/2012 8:46 PM CDT Sick [ICD-9-CM] documented in this encounter Results * (ABNORMAL) LIPID PANEL (07/05/2012 8:46 PM CDT) CHOLESTEROL 143 130 - 200 mg/dL 07/05/2012 11:28 PM T [facility]ATORY [place] TRIGLYCERIDE 226(H) 30 - 200 mg/dL 07/05/2012 11:28 PM T [facility] LABORATORY SERVICES - [place] HDL 26(L) 35 - 80 mg/dL 07/05/2012 11:28 PM CDT [facility] LABORATORY [facility] LDL CALCULATED 72 0 - 100 mg/dL 07/05/2012 11:28 PM CDT [facility] Blood specimen (specimen) 07/05/2012 8:46 PM CDT 07/05/2012 10:54 PM CDT Narrative [facility] [employer] [facility] - 07/05/2012 11:28 PM CDT TOTAL CHOLESTEROL mg/dL Desirable <200 Borderline high 200-239 High >=240 TRIGLYCERIDES mg/dL Normal <150 Borderline high 150-199 High 200-499 Very high >=500 HDL CHOLESTEROL mg/dL Low <40 Normal 40-60 Desirable >60 LDL CHOLESTEROL mg/dL Optimal <100 Low risk 100-129 Borderline high 130-159 High 160-189 Very high >=190 Based on AHA/NCEP Guidelines us Rosalba Villasenor MD CHEMISTRY ORDERABLES Final Result Performing Organization Address [facility] Co de Phone Number [facility] CLIA # [id number] [address] [place] [phone] * (ABNORMAL) HEMOGLOBIN A1C (07/05/2012 8:46 PM CDT) HEMOGLOBIN A1C 13.3(H) 4.5 - 6.2 % 07/06/2012 1:02 AM CDT [facility] [employer] [facility] EST. AVG GLUCOSE, A1C 335 mg/dL 07/06/2012 1:02 AM CDT [facility] Blood specimen (specimen) 07/05/2012 8:46 PM CDT 07/05/2012 10:54 PM CDT us Rosalba Villasenor MD CHEMISTRY ORDERABLES Final Result Performing Organization Address [facility]/ZIP Co de Phone Number [facility] CLIA # [id number] [address] [place] [address] * (ABNORMAL) COMPREHENSIVE METABOLIC PANEL (07/05/2012 8:46 PM CDT) SODIUM 140 136 - 145 mmol/L 07/05/2012 11:28 PM CDT [facility] POTASSIUM 4.0 3.5 - 5.1 mmol/L 07/05/2012 11:28 PM [facility] CHLORIDE 101 98 - 107 mmol/L 07/05/2012 11:28 PM [facility] CO2 31 21 - 32 mmol/L 07/05/2012 11:28 PM [facility] CALCIUM 9.4 8.5 - 10.1 mg/dL 07/05/2012 11:28 PM [facility] BUN 15 7 - 18 mg/dL 07/05/2012 11:28 PM [facility] CREATININE 1.50(H) 0.60 - 1.30 mg/dL 07/05/2012 11:28 PM [facility] GLUCOSE 122(H) 74 - 106 mg/dL 07/05/2012 11:28 PM [facility] TOTAL PROTEIN 7.5 6.4 - 8.2 g/dL 07/05/2012 11:28 PM [facility] ALBUMIN 4.1 3.4 - 5.0 g/dL 07/05/2012 11:28 PM [facility] BILIRUBIN TOTAL 0.5 0.2 - 1.0 mg/dL 07/05/2012 11:28 PM [facility] ALKALINE PHOSPHATASE 101 50 - 136 U/L 07/05/2012 11:28 PM [facility] AST 26 15 - 37 U/L 07/05/2012 11:28 PM [facility] ALT 48 30 - 65 U/L 07/05/2012 11:28 PM [facility] GFR 48(L) >=60 mL/min/1.7 3 sq meter 07/05/2012 11:28 PM [facility] GFR, 59(L) >=60 mL/min/1.7 3 sq meter 07/05/2012 11:28 PM [facility] Blood specimen (specimen) 07/05/2012 8:46 PM T 07/05/2012 10:54 PM CDT Narrative [facility] LABORATORY SERVICES [facility] - 07/05/2012 11:28 PM CDT eGFR has not been validated [...] Based on National Kidney Disease Education Program us Rosalba Villasenor MD CHEMISTRY ORDERABLES Final Result [facility] [employer] [facility] CLIA # [id number] [address] [place] [address] documented in this encounter Visit Diagnoses Diagnosis Sick Other unknown and unspecified cause of morbidity or mortality documented in this encounter Care Teams Business Area Director Relationship Specialty Start Date End Date Adolph Pal MD [address] [place] [id number] PCP - General Pediatrics 05/25/20 documented as of this encounter
--- OUTSIDE RECORDS SUMMARY | 2024-10-08 15:12 | XMS_ITS | Encounter Summary ---
Author Organization [facility] Address [address] [place] [address] Care Team Providers Care Teachers' Aide Name Role Phone Adolph Pal MD Primary Care Provider [phone] Encounter Details Date Type Department Care Team (Late st Contact Info) Description 08/06/2009 Ancillary Orders [facility] Cardiology- [place] [address] [place] [address] Artie Flanagan DO NO ADDRESS ON FILE Unspecified Chest Pain Social History Tobacco Use Types Packs/Day Years Used Date Smoking Tobacco: Never Alcohol Use Standard Drinks/Week Comments No 0 (1 standard drink = 0.6 oz pur e alcohol) Sex and Gender Information Value Date Recorded Sex Assigned at Not on file 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 See the Stress Echo Report for result. Procedure Note Martha Arredondo, RT - 08/06/2009 Order information only. See the Stress Echo Report for result. us Artie Flanagan DO US ORDERABLES Final Result [facility] documented in this encounter Visit Diagnoses Diagnosis Chest pain, unspecified documented in this encounter Care Teams Teachers' Aide Relationship Specialty Start Date End Date Adolph Pal MD [address] [place] [address] PCP - General Pediatrics 05/25/20 documented as of this encounter
[2024-10-08 15:34] VITALS: BP 156/79; O2SAT 96
[2024-10-08 16:03] VITALS: BP 159/69; PULSE 70; RESP 16; O2SAT 98
--- NOTE | 2024-10-08 16:27 | W.ED.MALEGU ---
HPI - Male Genitourinary General: Chief complaint: Urogenital-Male Stated complaint: wants catheter bag changed or out Time Seen by Provider: 10/08/24 15:08 Source: patient Mode of arrival: ambulatory Limitations: no limitations History of Present Illness: The patient is a 68-year-old male with a chronic indwelling Salazar catheter who presents for replacement of his catheter drainage bag after the bag was bitten by a dog, resulting in urine leakage.?He denies fever, chills, dysuria, hematuria, suprapubic pain, flank pain, or any other urinary or systemic symptoms.?There is no report of trauma to the catheter itself or to the urethra.?The patient has an established follow-up with urology. MD Complaint: other (Replacement of catheter drainage bag) Associated symptoms: Deny dysuria, nausea or vomiting Related Data Home Medications ?Medication ?Instructions ?Recorded ?Confirmed aspirin 81 mg tablet,delayed 81 mg PO QAM 05/10/19 10/08/24 release (Adult Low Dose Aspirin) cholecalciferol (vitamin D3) 25 25 mcg PO DAILY 10/10/22 10/08/24 mcg (1,000 unit) capsule (Vitamin D3) docosahexaenoic acid (dha)-epa 120 1 cap PO DAILY 10/10/22 10/08/24 mg-180 mg capsule (Fish Oil) atorvastatin 40 mg tablet 40 mg PO QPM 10/16/22 10/08/24 insulin lispro 100 unit/mL See Rx Instructions .Route .COMPLEX 06/16/23 10/08/24 subcutaneous pen nitroglycerin 0.4 mg sublingual See Rx Instructions .Route .COMPLEX 07/27/23 10/08/24 tablet carbidopa 25 mg-levodopa 100 mg See Rx Instructions .Route .COMPLEX 03/01/24 10/08/24 tablet furosemide 40 mg tablet 40 mg PO DAILY 05/30/24 10/08/24 insulin glargine 100 unit/mL (3 85 unit SUBCUT BID 05/30/24 10/08/24 mL) subcutaneous pen (Lantus Solostar U-100 Insulin) lactulose 10 gram/15 mL oral 30 ml PO BID PRN Constipation 09/23/24 10/08/24 solution (Constulose) polyethylene glycol 3350 17 17 g PO DAILY PRN Constipation 09/23/24 10/08/24 gram/dose oral powder (ClearLax) potassium chloride 20 mEq 20 meq PO QAM 09/23/24 10/08/24 tablet,extended release naproxen 500 mg tablet 500 mg PO BID 10/08/24 10/08/24 scopolamine base 1 mg over 3 days 1 patch topical Q3D 10/08/24 10/08/24 transdermal patch tizanidine 4 mg tablet 4 mg PO TID PRN Pain 10/08/24 10/08/24 Previous Rx's ?Medication ?Instructions ?Recorded clopidogrel 75 mg tablet 75 mg PO DAILY 3 months #90 tabs 11/10/19 metoprolol tartrate 50 mg tablet 50 mg PO BID #180 tabs 11/10/19 finasteride 5 mg tablet 5 mg PO DAILY #90 tabs 10/11/22 tamsulosin 0.4 mg capsule 0.4 mg PO DAILY #90 caps 10/11/22 isosorbide mononitrate 60 mg 60 mg PO DAILY #30 tabs 06/16/23 tablet,extended release 24 hr Allergies Allergy/AdvReac Type Severity Reaction Status Date / Time No Known Allergies Allergy Verified 09/28/24 09:18 Review of Systems General: Reports: 10 or more systems reviewed and unremarkable except in HPI and below Const: Reports: other (Presents for placement of catheter drainage bag); Denies: fever(s), chills or fatigue Eyes: Denies: change in vision ENMT: Denies: throat pain, ear or mastoid pain or nasal discharge Card: Denies: chest pain, palpitations, swelling of feet/ankles or lightheadedness Resp: Denies: dyspnea, productive cough or wheezing GI: Denies: abdominal pain, nausea, vomiting, diarrhea or constipation : Denies: flank pain, difficulty urinating, dysuria or urinary frequency Musc: Denies: neck pain, back pain or joint pain Skin/Breast: Denies: rash Neuro: Denies: headache(s), numbness in extremities or weakness in extremities PFSH ED PFSH: Medical History CÉSAR (obstructive sleep apnea) Hyperlipidemia HTN (hypertension) ASHD (arteriosclerotic heart disease) Diabetes Hyperglycemia JULIET (acute kidney injury) Elbow contusion Dystonic tremor Acute on chronic renal failure Urinary tract infection Urinary retention Acute renal failure Ophthalmoplegia Parkinson disease Diabetic neuropathy associated with type 2 diabetes mellitus Essential tremor Cough Exposure to COVID-19 virus Chronic diarrhea Diabetic foot ulcer CKD (chronic kidney disease) (~10/12/20) Obesity Myocardial infarction Surgical History S/P eye surgery Status post colonoscopy (12/24/20) sigmoid polyp Status post amputation of toe S/P angioplasty with stent Family History Mother CAD (coronary artery disease) Diabetes Social History Smoking and tobacco/nicotine status: former use of tobacco/nicotine Alcohol intake: former Substance/Drug Use: never Lives independently: Yes Household members: other Details: DOG Marital status: service: No Current occupational status: disabled 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 [employer] Physical Exam Const: COMMON NORMALS: no acute distress, patient oriented x3 and no limitations GENERAL APPEARANCE: cooperative, comfortable and well developed ORIENTATION/CONSCIOUSNESS: Yes awake, Yes oriented to person, Yes oriented to place and Yes oriented to time HENMT: COMMON NORMALS: normocephalic, atraumatic and hearing grossly normal bilaterally HEAD & SCALP: normocephalic and atraumatic Eye: COMMON NORMALS: Equal, round and reactive pupils present, EOMs intact bilaterally and conjunctivae normal CONJUNCTIVA: Yes conjunctivae normal PUPIL: Yes Equal, round and reactive pupils present Neck/C-Spine: COMMON NORMALS: full ROM, supple and no JVD Resp: COMMON NORMALS: normal respiratory effort, No retractions, No use of accessory muscles and clear to auscultation bilaterally AUSCULTATION: clear to auscultation bilaterally Cardio: COMMON NORMALS: no JVD, regular rate, regular rhythm, No clicks present (Cardio), No murmurs present (Cardio) and No rub (Cardio) RATE: regular rate RHYTHM: regular rhythm GI: COMMON NORMALS: Normal to inspection, nondistended, normoactive bowel sounds present, Soft to palpation and non-tender AUSCULTATION: Yes normoactive bowel sounds PALPATION: Yes Soft to palpation RECTAL EXAM: Yes deferred : OTHER: Salazar catheter in place, draining straw-colored urine however drainage into the bag results in leakage due to a puncture wound in the back. Extremity: COMMON NORMALS: normal to inspection, full ROM and capillary refill normal Neuro: COMMON NORMALS: patient oriented x3, moves all extremities, no focal motor deficits and no sensory deficits noted SENSORIUM/ORIENTATION: Yes oriented to person, Yes oriented to place and Yes oriented to time Psych: COMMON NORMALS: mental status grossly normal and Normal thought process present THOUGHT PROCESS: Normal thought process present Skin: COMMON NORMALS: no rashes or lesions noted GENERAL SKIN EXAM: no rashes or lesions noted Course Vital Signs: Vital signs: Vital Signs Temperature 98.1 F 10/08/24 15:01 Pulse Rate 70 10/08/24 16:03 Respiratory Rate 16 10/08/24 16:03 Blood Pressure 159/69 10/08/24 16:03 Pulse Oximetry 98 10/08/24 16:03 Oxygen Delivery Me thod Room Air 10/08/24 15:01 MDM - Male Medical Decision Making Patient presents for punctured drainage bag from his catheter, states he is set to have it replaced soon with hospice care/urology, is just here for replacement of the bag. This was replaced successfully and attached to his leg, he had no symptoms to report and will be discharged stable condition at this time. No radiology studies performed this visit Discharge Plan Discharge Patient Disposition: Home Clinical Impression: Complication of catheter Condition: Stable Prescriptions: No Action aspirin [Adult Low Dose Aspirin] 81 mg tablet,delayed release (DR/EC) 81 mg PO QAM atorvastatin 40 mg tablet 40 mg PO QPM clopidogrel 75 mg tablet 75 mg PO DAILY 90 Days Qty: 90 3RF metoprolol tartrate 50 mg tablet 50 mg PO BID Qty: 180 3RF nitroglycerin 0.4 mg tablet, sublingual See Rx Instructions .ROUTE .COMPLEX Rx Instructions: DISSOLVE ONE TABLET UNDER THE TONGUE EVERY 5 MINUTES NEEDED FOR CHEST PAIN. DO NOT EXCEED A TOTAL OF 3 DOSES IN 15 MINUTES - REPORT TO THE EMERGENCY ROOM IF 3 DOSES ARE NEEDED TO CONTROL PAIN furosemide 40 mg tablet 40 mg PO DAILY insulin glargine [Lantus Solostar U-100 Insulin] 100 unit/mL (3 mL) insulin pen 85 unit SUBCUT BID tizanidine 4 mg tablet 4 mg PO TID PRN (Reason: Pain) scopolamine base 1 mg over 3 days patch 3 day 1 patch topical Q3D naproxen 500 mg tablet 500 mg PO BID cholecalciferol (vitamin D3) [Vitamin D3] 25 mcg (1,000 unit) Capsule 25 mcg PO DAILY Fish Oil 120-180 mg Capsule 1 cap PO DAILY tamsulosin 0.4 mg Capsule 0.4 mg PO DAILY Qty: 90 1RF finasteride 5 mg Tablet 5 mg PO DAILY Qty: 90 3RF insulin lispro 100 unit/mL insulin pen See Rx Instructions .ROUTE .COMPLEX Rx Instructions: TAKE 15 UNITS DAILY. IF BG OVER 200, TAKE 25 UNITS. isosorbide mononitrate 60 mg tablet extended release 24 hr 60 mg PO DAILY Qty: 30 0RF carbidopa-levodopa 25-100 mg tablet See Rx Instructions .ROUTE .COMPLEX Rx Instructions: TAKE 1 TABLET BY MOUTH IN THE MORNING AND 1 TAB AT NOON AND 1 TAB AT 4 IN THE EVENING. polyethylene glycol 3350 [ClearLax] 17 gram/dose powder 17 g PO DAILY PRN (Reason: Constipation) lactulose [Constulose] 10 gram/15 mL solution 30 ml PO BID PRN (Reason: Constipation) potassium chloride 20 mEq tablet extended release 20 meq PO QAM Discharge Orders: Discharge ED (Routine); Ordered 10/08/24 Ordered By: Isreal Arredondo Referrals: Roxana James FNP [Primary Care Provider, Unknown] Patient Instructions: Patient Portal & [place] Instructions Activity Restrictions/Additional Instructions: Salazar Catheter Bag Care Discharge Instructions: Salazar Catheter Bag Replacement - Catheter and Bag Care: - Always keep the drainage bag below the level of the bladder to prevent backflow of urine, which can increase infection risk. - Do not place the bag on the floor. - Ensure the catheter and tubing are free from kinks or twists to maintain unobstructed urine flow. - Secure the catheter to prevent movement and urethral traction. - Hygiene: - Wash hands thoroughly with soap and water before and after touching the catheter or drainage bag. - Routine daily hygiene of the perineal area is recommended. There is no consensus on the use of antiseptic solutions for daily cleaning, but avoid alcohol-based products as they may dry the skin. - Emptying the Bag: - Empty the drainage bag regularly, at least every 8 hours or when it is two-thirds full, using a clean container. - Avoid touching the drainage spigot to the container to prevent contamination. - Bag Changes: - The drainage bag should only be changed if it becomes disconnected, leaks, or is visibly soiled. Routine scheduled changes (e.g., every 3 days) are not supported by current evidence. - When changing the bag, use aseptic technique to minimize infection risk. - Monitoring and When to Seek Help: - Watch for signs of infection, such as fever, chills, cloudy or foul-smelling urine, lower abdominal pain, or blood in the urine. - Contact a healthcare provider if any of these symptoms occur, or if the catheter is not draining, becomes dislodged, or if there is leakage around the catheter. - General Advice: - Maintain adequate hydration unless otherwise instructed. - Do not attempt to remove or replace the catheter or bag unless specifically trained and instructed to do so. These instructions are consistent with the recommendations from the [employer] Society of [place] for the management of indwelling urinary catheters and prevention of CAUTI. Print Language: Nigerian Coding Level of Care Code ED Liquid Compounder for Hugo Garcia
== END 2024-10-08 16:05 | disposition home or self-care (01) ==
PROVIDERS: Emergency Provider Physician Assistant; PCP Nurse Practitioner Family
DX: T83.031A Leakage of indwelling urethral catheter, initial encounter (principal); Z79.82 Long term (current) use of aspirin; Z79.4 Long term (current) use of insulin; Z87.891 Personal history of nicotine dependence; E78.5 Hyperlipidemia, unspecified; E11.22 Type 2 diabetes mellitus with diabetic chronic kidney disease; I12.9 Hypertensive chronic kidney disease with stage 1 through stage 4 chronic kidney disease, or unspecified chronic kidney disease; N18.9 Chronic kidney disease, unspecified; W54.0XXA Bitten by dog, initial encounter
CPT/HCPCS: 99282

== ENCOUNTER 2024-11-02 08:01 | Emergency (ER) | payer MEDICARE, MEDICAID, SELFPAY ==
--- OUTSIDE RECORDS SUMMARY | 2023-07-28 11:00 | XMS_ITS ---
Author Organization [facility] Address [address] [place] [address] Care Team Providers Care Sheetmetal Trades Worker Name Role Phone Roxana James APRN Primary Care Provider UnavailEFRAIN Rodríguez Unavailable [phone] ZAHIRA DYE Unavailable [phone] REASON FOR VISIT 6 mo w/ ua/pvr Encounters Encounter Location Date Provider Diagnosis [facility] [address] [facility] [place] [address] 07/28/2023 EFRAIN MATOS Plan Of Treatment Next Appt Details Provider Name:EFRAIN MATOS, 0 11/09/2024 03:00:00 PM, [address] [place], [address], Progress Notes * Yaya ASTUDILLODOB: (69 yo M)Acc No.[id number]:07/28/2023 Progress Notes Patient: Yaya MARY Provider: Charlie Matos APRN-MACHINE MOLDER SQUEEZE :1955 A ge:67 Y S ex:Male Date:07/28/2023 Address:[address] [place] [address], [phone] Pcp:Roxana James APRN Subjective: * Chief Complaints: * 1 . 6 mo w/ ua/pvr. * Medical History: Objective: * Vitals: Assessment: Plan: * Treatment: * Billing Information: * Visit Code: * Procedure Codes: * Electronic signature of EFRAIN MATOS APRN on 11/02/2024 at 08:05 AM CDT Sign off status: Pending * Provider: Charlie Matos APRN-MACHINE MOLDER SQUEEZE Date: 0 07/28/2023 Generated for Yenifer jimenez/Rolf/[place] on: 0 11/02/2024 08:05 AM CDT
[2024-11-02 08:03] VITALS: BP 115/50; PULSE 64; RESP 15; TEMP 36.7; O2SAT 97; BMI 34.0
--- OUTSIDE RECORDS SUMMARY | 2024-11-02 08:05 | XMS_ITS | Encounter Summary ---
Author Organization [facility] Address [address] [place] [address] Phone Care Team Providers Care Livestock Caretaker Name Role Phone Roxana James Primary Care Provider [phone] Encounter Details Date Type Department Care Team (Late st Contact Info) Description 03/03/2019 Orders Only [facility] [address] [place] [address] Anton Nguyen, JEANETTE Chronic kidney disease stage 3 (HCC) Social History Tobacco Use Types Packs/Day Years Used Date Smoking Tobacco: Never Smokeless Tobacco: Never Alcohol Use Standard Drinks/Week Comments Not Currently 0 (1 standard drink = 0.6 oz pur e alcohol) Sex and Gender Information Value Date Recorded Sex Assigned at Not on file Legal Sex Male 12:44 PM EST Gender Identity Not on file Sexual Orientation Not on file documented as of this encounter Plan of Treatment Not on file documented as of this encounter Visit Diagnoses Diagnosis Chronic kidney disease stage 3 (HCC) documented in this encounter Care Teams Livestock Caretaker Relationship Specialty Start Date End Date Roxana James FNP [address] [place] [id number] PCP - General Nurse Practitioner 11/13/21 documented as of this encounter
--- OUTSIDE RECORDS SUMMARY | 2024-11-02 08:05 | XMS_ITS | Encounter Summary ---
Author Organization [facility] Address [address] [place] [address] Care Team Providers Care Hydroponics Worker Name Role Phone Adolph Pal MD Primary Care Provider [phone] Reason for Referral * Radiology Services (Urgent) - Closed Specialty Diagnoses / Procedures Referred By Contac t Referred To Contact Radiology Diagnoses Stage 3a chronic kidney disease (CMS/HCC) Procedures US RENAL AND BLADDER US RENAL Teri Dunham NP [address] [place] [address] Phone: tel: fax: [facility] [address] [place] [address] Phone: tel: fax: Referral ID Status Reason Start Date Expiration Date Visits Re quested Visits Authorized [id number] Closed 05/23/2020 06/23/2021 1 1 ET RELATIONSHIP MANAGER Encounter Details Date Type Department Care Team (Late st Contact Info) Description 05/23/2020 Ancillary Orders [facility] Centralized Scheduling [address] [place] [address] Teri Dunham NP [address] [place] [address] Stage 3a chronic kidney disease [...] on file 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 No / Unsure 05/23/2020 4:17 PM MARKET RELATIONSHIP MANAGER documented as of this encounter Plan of Treatment Not on file documented as of this encounter Results * US RENAL AND BLADDER (05/25/2020 9:00 AM MARKET RELATIONSHIP MANAGER) Anatomical Region Laterality Modality Abdomen Ultrasound 05/25/2020 9:00 AM MARKET RELATIONSHIP MANAGER Impressions 05/25/2020 10:00 PM MARKET RELATIONSHIP MANAGER IMPRESSION: No significant ultrasound abnormality noted. [id number] Narrative 05/25/2020 10:00 PM MARKET RELATIONSHIP MANAGER Exam: US RENAL AND BLADDER Date/Time of [...] unremarkable. IMPRESSION: No significant ultrasound abnormality noted. [id number] us Teri Dunham CEO AND FOUNDER US ORDERABLES Anupama dylan Result documented in this encounter Visit Diagnoses Diagnosis Stage 3a chronic kidney disease (CMS/HCC) Stage 3a chronic kidney disease (CMS/HCC) documented in this encounter Care Teams Hydroponics Worker Relationship Specialty Start Date End Date Adolph Pal MD [address] [place] [address] PCP - General Pediatrics 05/25/20 documented as of this encounter
--- OUTSIDE RECORDS SUMMARY | 2024-11-02 08:05 | XMS_ITS | Clinical Summary ---
Author Organization [facility] Address [address] [place] [address] Care Team Providers Care Cafeteria Clerk Name Role Phone Adolph Pal MD Primary Care Provider [phone] Allergies No known active allergies Medications aspirin [...] E11.9, . 100 Each 6 Active Insulin [place], Disposable, (BD INSULIN PEN NEEDLE UF MINI) 31 gauge x 3/16 Needle DX:code E11.9. 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 Gender Identity Not on file Sexual Orientation Not on file Occupation Industry Job Start Date Job End Date Not on file Not on file Not on file Not on file Last Filed Vital Signs Vital Sign Reading Time Taken Comments Blood Pressure 109/58 06/17/2017 12:00 PM SWAGING MACHINE OPERATOR Pulse 78 06/17/2017 12:00 PM SWAGING MACHINE OPERATOR Temperature 36.6 C (97.8 F) 06/17/2017 10:27 AM SWAGING MACHINE OPERATOR Respiratory Rate 20 06/17/2017 12:00 PM SWAGING MACHINE OPERATOR Oxygen Saturation 96% 06/17/2017 12:00 PM SWAGING MACHINE OPERATOR Inhaled Oxygen Concentration - - Weight 101.6 kg (224 lb) 06/17/2017 8:08 AM SWAGING MACHINE OPERATOR Height 172.7 cm (5' 8 ) 06/17/2017 8:08 AM SWAGING MACHINE OPERATOR Body Mass Index 34.06 06/17/2017 8:08 AM SWAGING MACHINE OPERATOR Plan of Treatment Health Maintenance Due Date [...] 10/17/2013, Additional history exists INFLUENZA VACCINE (#1) 2024 Medical Devices Implanted Type Area Office Employee Device Identifier Shelf Expiration Date Model / Serial / Lot Lens Io Bi-Aspheric Softechd+19.50 - [id number] Implanted:Qty: 1 on 04/01/2017 by Lev Todd MD at [facility] Eye Right: Eye [employer] 02/26/2021 SOFTECHD+19 .50 / [id number] / Lens Io Bi-Aspheric Softechd+19.50 - [id number] Implanted:Qty: 1 on 06/17/2017 by Lev Todd MD at [facility] Eye Left: Eye [employer] 11/19/2021 SOFTECHD+19 .50 / [id number] / Procedures Procedure Name Priority Date/Time Associated Diagnosis Comments HEMOGLOBIN A1C Routine 12/04/2015 9:39 AM CDT Type 2 diabetes mellitus without complication (CMS/HCC) MICROALBUMIN/CREATI NINE RATIO, RANDOM UR Routine 09/03/2015 9:40 AM CDT Type 2 diabetes mellitus without complication (CMS/HCC) ST elevation myocardial infarction (STEMI), unspecified artery (CMS/HCC) 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 ([facility]) LIPID PANEL Routine 09/03/2015 9:40 AM CDT Type 2 diabetes mellitus without complication ([facility]) ST elevation myocardial infarction (STEMI), unspecified artery ([facility]) Essential hypertension Mixed hyperlipidemia from Last 3 Months or Most Recently Relevant to Health Maintenance Results * (ABNORMAL) HEMOGLOBIN A1C (12/04/2015 9:39 AM CDT) HEMOGLOBIN A1C 11.7(H) 4.0 - 6.0 % 12/05/2015 9:15 AM CDT [facility]3] [facility] EST. AVG GLUCOSE, A1C 289 mg/dL 12/05/2015 9:15 AM CDT [facility]3] [facility] Blood Collection / Unknown 12/04/2015 9:39 AM CDT 12/04/2015 8:20 PM CDT Narrative [facility]3] [facility] - 12/05/2015 9:15 AM CDT Falsely low A1C measurements can occur when: 1. Anemia and/or hemolytic anemia is present. 2. Hemoglobin variants present. 3. Renal failure. 4. Transfusion of blood product in the last 120 days. We recommend ordering a fructosamine test([id number]) to more accurately assess glycemic status if any of the above conditions are present. Amy Valenzuela APRN CHEMISTRY ORDERAB LES Final Result [facility]3] LAB[facility]AT[facility] SERVICES[facility] CLIA# [id number] [address] [place] [address] * MICROALBUMIN/CREATININE RATIO, RANDOM UR (09/03/2015 9:40 AM CDT) MICROALBUMIN, URINE 5.7 mg/dL 09/03/2015 9:23 PM CDT [facility]3] [facility] CREATININE, URINE 89.7 40.0 - 278.0 mg/dL 09/03/2015 9:23 PM CDT [facility]3] [facility] Comment: Reference Range varies with fluid intake and diet. MICROALBUMIN/CR EAT RATIO, UR 63.5 mg/g Creatinine 09/03/2015 9:23 PM CDT [facility]3] [facility] Comment: Condition mg/g Creatinine Normal Males <17 Normal Females <25 Microalbuminuria Males 17-299 Microalbuminuria Females 25-299 Overt proteinuria >=300 Urine URINE SPECIMEN OBTAINED BY CLEAN CATCH PROCEDURE / Unknown Collection / Unknown 09/03/2015 9:40 AM CDT 09/03/2015 8:36 PM CDT Amy Valenzuela APPRAISER PERSONAL PROPERTY URINE ORDERABLES Final Result [facility]3] [facility] CLIA# [id number] [address] [place] [address] * (ABNORMAL) LIPID PANEL (09/03/2015 9:40 AM CDT) CHOLESTEROL 140 <200 mg/dL 09/03/2015 9:38 PM CDT [facility]3] [facility] TRIGLYCERIDE 177(H) <150 mg/dL 09/03/2015 9:38 PM CDT [facility]3] [facility] HDL 21(L) 40 - 59 mg/dL 09/03/2015 9:38 PM CDT [facility]3] [facility] LDL CALCULATED 84 <100 mg/dL 09/03/2015 9:38 PM CDT [facility]3] [facility] NON-HDL CHOLESTEROL 119 <130 mg/dL 09/03/2015 9:38 PM CDT [facility]3] [facility] Blood Collection / Unknown 09/03/2015 9:40 AM CDT 09/03/2015 8:38 PM CDT Narrative [facility]3] LAB[facility] - 09/03/2015 9:38 PM [...] >=220 Based on AHA/NCEP Guidelines Amy Valenzuela APPRAISER PERSONAL PROPERTY CHEMISTRY ORDERAB LES Final Result [facility]] [facility] CLIA# [id number] [address] [place] [address] from Last 3 Months or Most Recently Relevant to Health Maintenance Insurance [place] [address] [place] [address] Advance Directives For more information, please contact: [phone] * Full Code (Latest Code Status on File) Date Activated Date Inactivated Comments 06/17/2017 8:46 AM 06/17/2017 2:05 PM * Full Code Date Activated Date Inactivated Comments 04/01/2017 9:25 AM 04/01/2017 1:28 PM Care Teams Cafeteria Clerk Relationship Specialty Start Date End Date Adolph Pal MD [address] [place] [id number] PCP - General Pediatrics 05/25/20
--- NOTE | 2024-11-02 08:06 | ECG_ITS ---
[facility]24[facility] Pat Name: Yaya Astudillo Department: Room: Gender: Male Contact Lens Blocker: : 1955 Requested By: Benito Rodríguez Order Number: [id number] MD: Harvey Martins M.D. Measurements Intervals [place] Rate: 63 P: 28 [place]: 193 QRS: -40 QRSD: 90 T: 55 QT: 435 QTc: 448 Interpretive Statements SINUS RHYTHM LEFT AXIS DEVIATION [QRS AXIS < -30] POSSIBLE RIGHT VENTRICULAR CONDUCTION DELAY [RSR (QR) IN V1/V2] ANTEROSEPTAL MYOCARDIAL INFARCTION , OF INDETERMINATE AGE [40+ ms Q WAVE IN V1-V4] Compared to ECG 09/04/2024 02:03:04 No significant changes Electronically Signed On 11-03-2024 09:03:50 CDT by Harvey Martins M.D. [email or web address]
--- OUTSIDE RECORDS SUMMARY | 2024-11-02 08:06 | XMS_ITS | Patient Health Record ---
Author Organization [facility] Address [address] [place] [address] Care Team Providers Care Acetylene Plant Operator Name Role Phone Janice James APRNn Primary Care Provider Unavaila Michael Ramirez Unavailable [phone] ZAHIRA DYE Unavailable Unavailable Allergies No Known Allergies Reason For Referral No Information Medications Medication SIG (Take, Route, Frequency, Duration) Notes Start Date End Date Status Furosemide 40 MG Tablet 1 tablet Orally Once a day Active Cipro Active Lisinopril 20 MG Tablet 1 tablet Orally Once a day Active Levemir FlexPen 100 UNIT/ML Solution Pen-injector as directed Subcutaneous Active Tamsulosin HCl 0.4 MG Capsule 1 capsule Orally Once a day Active Victoza 18 MG/3ML Solution Pen-injector as directed Subcutaneous Act miguel Finasteride 5 MG Tablet 1 tablet Orally Once a day Active Carbidopa-Levodopa 25-100 MG Tablet 1 tablet as needed Orally Two times a Week Active Jardiance 25 MG Tablet 1 tablet Orally O nce a day Active Nitroglycerin 0.4 MG Tablet Sublingual as directed Sublingual Activ e Clopidogrel Bisulfate 75 MG Tablet 1 tablet Orally Once a day Active Aspirin 81 81 MG Tablet Delayed Release 1 tablet Orally Once a day Active Metoprolol Tartrate 50 MG Tablet 1 tablet with food Orally Twice a day Active Insulin Lispro 100 UNIT/ML Solution Cartridge as directed Subcutaneous Active Isosorbide Mononitrate ER 60 MG Tablet Extended Release 24 Hour 1 tablet in the morning Orally Once a day Active Pantoprazole Sodium 40 MG Tablet Delayed Release 1 tablet Orally Once a day Active Atorvastatin Calcium 40 MG Tablet 1 tablet Orally Once a day Active Social History Tobacco Use: Social History Observation Description Date Details (start date - stop date) Former Smoker NA - NA Social History Tobacco Use: Social Info Question Answer Notes xTobacco Use/Smoking Are you a former smoker How long has it been since you last smoked? 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) Active confirmed Problem Urinary retention (610673594) Urinary retention (R33.9) Active confirmed Problem History of urinary tract infection (9897045117014) Recent urinary tract infection (Z87.440) Active confirmed Problem Benign prostatic hypertrophy with outflow obstruction (137823125) BPH loc w urin obs/LUTS (N40.1) Active confirmed Plan Of Treatment No Information Insurance Providers Payer Name Payer Address Payer Phone Subscriber Number Group Number Insured Name Patient Relationship to Insured Coverage Start Date Coverage End Date [place] Replacement [address] [place] [address] [id number] Yaya Astudillo Self - patient is the insured [place] Medicaid [address] [place] [address] [id number] Yaya Astudillo Self - patient is the insured Medical (General) History Medical History History ICD Code Arthritis Heart Condition Diabetes Hemorrhoids Hospitalization History Reason Date(Month/Year) Urinary Issue 09/2022
--- OUTSIDE RECORDS SUMMARY | 2024-11-02 08:06 | XMS_ITS | Clinical Summary ---
Author Organization [facility] Address [address] Attn: [place] [address] Care Team Providers Care Content Strategy Lead Name Role Phone Adolph Pal MD Primary Care Provider [phone] Allergies No known active allergies Medications insulin detemir U-100 (Levemir FlexTouch U-100 Insuln) 100 unit/mL pen syringe INJECT 20 UNITS SUB-Q EVERY MORNING AND 55 UNITS IN THE EVENING 9 mL 0 8 Active lancets 30 gauge Use bid to check blood sugars, Dx E11.9, . 100 Each 5 6 Active Insulin [place], Disposable, 31 gauge x 3/16 Needle For levemir flex pen and novolog flex pen. 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, without long-term current use of insulin Encounters Date Type Department Care Team Description 10/11/2024 External Device Data STL ABSTRACTION Provider, Abstract from Last 3 Months Family History Medical History Relation Name Comments [...] on file Legal Sex Male 7:55 AM AIRCREWMAN Gender Identity Not on file Sexual Orientation Not on file Last Filed Vital Signs Vital Sign Reading Time Taken Comments Blood Pressure 151/85 04/14/2024 10:09 AM AIRCREWMAN pt reports will take BP meds when he gets home Pulse 66 04/14/2024 10:09 AM AIRCREWMAN Temperature 36.3 C (97.4 F) 04/14/2024 10:09 AM AIRCREWMAN Respiratory Rate 16 04/14/2024 10:0 9 AM AIRCREWMAN Oxygen Saturation 96% 04/14/2024 10: 09 AM AIRCREWMAN Inhaled Oxygen Concentration - - Weight 103.4 kg (228 lb) 04/14/2024 7:3 7 AM AIRCREWMAN Height 172.7 cm (5' 8 ) 04/14/2024 7:37 AM AIRCREWMAN Body Mass Index 34.67 04/14/2024 7:37 AM AIRCREWMAN Plan of Treatment Health Maintenance Due Date [...] Abdominal Aortic Aneurysm (A AA) Screening 10/13/2020 DIABETES HBA1C Q 6 MONTHS 09/30/20242023, 12/04/2015, 09/03/2015, Additional history exists INFLUENZA VACCINE (#1) 2024 DIABETES ANNUAL RETINAL EXAM 05/13/2025, 05/13/2024, 05/13/2024, Additional history exists DTAP/TDAP/TD VACCINES (3 - T d or Tdap) 09/14/2032 09/14/2022, 04/29/2017 Medical Devices Implanted Type Area Stand Up Comedian Device Identifier Shelf Expiration Date Model / Serial / Lot Lens Io Bi-Aspheric Softechd+19.50 - [id number] Implanted:Qty: 1 on 04/01/2017 by Lev Todd MD Eye Right: Eye [employer] 02/26/2021 SOFTECHD+19 .50 / [id number] / Lens Io Bi-Aspheric Softechd+19.50 - [id number] Implanted:Qty: 1 on 06/17/2017 by Lev Todd MD Eye Left: Eye [employer] 11/19/2021 SOFTECHD+19 .50 / [id number] / Explanted Type Area Stand Up Comedian Device Identifier Shelf Expiration Date Model / Serial / Lot Oil Slc 8.5ml [id number] - [id number] Implanted:Qty: 1 on 04/30/2023 by Flori Copeland MD at [facility] Explanted:Qty: 1 on 04/14/2024 by Flori Copeland MD at [facility] Eye Right: Eye [facility] 10/10/2024 [id number] / / [id number] Description:GTIN: [id number] Procedures Procedure Name Priority Date/Time Associated Diagnosis Comments HEMOGLOBIN A1C Routine 12/04/2015 9:39 AM CDT MICROALBUMIN/CREATIN INE RATIO, RANDOM UR Routine 09/03/2015 9:40 AM CDT LIPID PANEL Routine 09/03/2015 9:40 AM CDT from Last 3 Months or Most Recently Relevant to Health Maintenance Results * (ABNORMAL) HEMOGLOBIN A1C (12/04/2015 9:39 AM CDT) HEMOGLOBIN A1C 11.7(H) 4.0 - 6.0 % 12/05/2015 9:15 AM CDT [facility] EST. AVG GLUCOSE, A1C 289 mg/dL 12/05/2015 9:15 AM CDT [facility] Blood Collection / Unknown 12/04/2015 9:39 AM CDT 12/04/2015 8:20 PM CDT Narrative [facility] - 12/05/2015 9:15 AM CDT Falsely low A1C measurements can occur when: 1. Anemia and/or hemolytic anemia is present. 2. Hemoglobin variants present. 3. Renal failure. 4. Transfusion of blood product in the last 120 days. We recommend ordering a fructosamine test([id number]) to more accurately assess glycemic status if any of the above conditions are present. Amy Valenzuela CLAIMS COLLECTOR CHEMISTRY ORDERAB LES Final Result [facility] CLIA# [id number] [place] [address] * MICROALBUMIN/CREATININE RATIO, RANDOM UR (09/03/2015 9:40 AM CDT) MICROALBUMIN, URINE 5.7 mg/dL 09/03/2015 9:23 PM CDT [facility] CREATININE, URINE 89.7 40.0 - 278.0 mg/dL 09/03/2015 9:23 PM CDT [facility] Comment: Reference Range varies with fluid intake and diet. MICROALBUMIN/CR EAT RATIO, UR 63.5 mg/g Creatinine 09/03/2015 9:23 PM CDT [facility] Comment: Condition mg/g Creatinine Normal Males <17 Normal Females <25 Microalbuminuria Males 17-299 Microalbuminuria Females 25-299 Overt proteinuria >=300 Urine URINE SPECIMEN OBTAINED BY CLEAN CATCH PROCEDURE / Unknown Collection / Unknown 09/03/2015 9:40 AM CDT 09/03/2015 8:36 PM CDT Amy Valenzuela CLAIMS COLLECTOR URINE ORDERABLES Final Result [facility] CLIA# [id number] [address] [place] [address] * (ABNORMAL) LIPID PANEL (09/03/2015 9:40 AM CDT) CHOLESTEROL 140 <200 mg/dL 09/03/2015 9:38 PM CDT [facility] TRIGLYCERIDE 177(H) <150 mg/dL 09/03/2015 9:38 PM CDT [facility] HDL 21(L) 40 - 59 mg/dL 09/03/2015 9:38 PM CDT [facility] LDL CALCULATED 84 <100 mg/dL 09/03/2015 9:38 PM CDT [facility] NON-HDL CHOLESTEROL 119 <130 mg/dL 09/03/2015 9:38 PM CDT [facility] Blood Collection / Unknown 09/03/2015 9:40 AM CDT 09/03/2015 8:38 PM CDT Narrative [facility] - 09/03/2015 9:38 PM [...] >=220 Based on AHA/NCEP Guidelines Amy Valenzuela CLAIMS COLLECTOR CHEMISTRY ORDERAB LES Final Result [facility] CLIA# [id number] [address] [place] [address] from Last 3 Months or Most Recently Relevant to Health Maintenance Insurance [place]ICAID [facility] [facility] DUAL ADVANTAGE O DSNP Care Teams Content Strategy Lead Relationship Specialty Start Date End Date Adolph Pal MD [address] [place] [id number] PCP - General Pediatrics 05/25/20
--- OUTSIDE RECORDS SUMMARY | 2024-11-02 08:06 | XMS_ITS | Patient Health Record ---
Author Organization [facility], [facility] Address [address] [place] [address] Care Team Providers Care Computer Systems Software Engineer Name Role Phone Roxana James APRN Primary Care Provider EFRAIN Garcia Unavailable [phone] ZAHIRA DYE Unavailable [phone] Allergies No Known Allergies Reason For Referral [...] a day Active Cipro *Pick strength-form from [employer] for eRX* Not-Taking Insulin Lispro 100 UNIT/ML as directed Subcutaneous *Pick strength-form from [employer] for eRX* Active Atorvastatin Calcium 40 MG 1 tablet Orally Once a day Active Carbidopa-Levodopa 25-100 MG 1 tablet as needed Orally Two times a Week Active Nitroglycerin 0.4 MG as directed Sublingual Active Levemir FlexPen 100 UNIT/ML as directed Subcutaneous *Reorder from [employer] for eRx and Interaction Alerts* Active Isosorbide Mononitrate ER 60 MG 1 tablet in the morning Orally Once a day Active Aspirin 81 81 MG 1 tablet Orally Once a day *Pick strength-form from [employer] for eRX* Active Pantoprazole Sodium 40 MG [...] Problem Status W/U Status Risk Notes Problem [id number] Balanitis (N48.1) Active confirmed Problem Dysuria (37522075) Dysuria (R30.0) Active confirmed Problem Lower urinary tract symptoms due to benign prostatic hypertrophy (93223319525082) Benign prostatic hyperplasia with lower urinary tract symptoms (N40.1) Active confirmed Problem [id number] Recent urinary tract infection (Z87.440) Active confirmed Problem Retention of urine (502084992) History of urinary retention (Z87.898) Active confirmed Problem History of UTI (Z87.440) Active confirmed Problem 413006458 Urinary retention (R33.9) Active confirmed Problem 521214622 BPH loc w urin obs/LUTS (N40.1) Active confirmed Encounters Encounter Location Date Provider Diagnosis [facility] [address] [place] [address] 10/19/2024 EFRAIN MATOS Plan Of Treatment Next Appt Details Provider Name:EFRAIN MATOS, 0 11/09/2024 03:00:00 PM, [address] [place], [address], Insurance Providers Payer Name Payer Address Payer Phone Subscriber Number Group Number Insured Name Patient Relationship to Insured Coverage Start Date Coverage End Date [place] Medicare Replacement [address] [place], [place] [id number] Yaya Astudillo Self - patient is the insured [place] Medicaid [address] [place], [place] [id number] [phone] [id number] Yaya Astudillo Self - patient is the insured Medical (General) History Medical History History ICD Code Arthritis Heart Condition Diabetes Hemorrhoids Hospitalization History Reason Date(Month/Year) Urinary Issue 09/2022
--- OUTSIDE RECORDS SUMMARY | 2024-11-02 08:06 | XMS_ITS | Clinical Summary ---
Author Organization [facility] Facility Address [address] [place] [address] Care Team Providers Care Shower Screen Installer Name Role Phone Roxana James LINOTYPER Primary Care Provider [phone] Allergies No known active allergies Medications pantoprazole (PROTONIX) 40 MG EC tablet Take by mouth 1 (one) time each day Active metoprolol succinate XL (TOPROL-XL) 50 MG 24 hr tablet Take 1 tablet by mouth 2 (two) times a day Active liraglutide (VICTOZA) 18 MG/3ML injection Inject 1.8 mg under the skin 1 (one) time each day Active isosorbide mononitrate (IMDUR) 30 MG 24 hr tablet Take 60 mg by mouth 1 (one) time each day Active clopidogrel (PLAVIX) 75 MG tablet Take 1 tablet by mouth 1 (one) time each day Active insulin detemir (LEVEMIR) 100 UNIT/ML injection Inject 80 Units under the skin in the morning and 80 Units in the evening. Active aspirin 81 MG tablet Take 81 mg by mouth daily Active primidone (MYSOLINE) 50 MG tablet Take 50 mg by mouth every night Active amLODIPine (NORVASC) 10 MG tablet Take 10 mg by mouth 1 (one) time each day Active rosuvastatin (CRESTOR) 10 MG tablet Take 10 mg by mouth 1 (one) time each day 3 Active finasteride (PROSCAR) 5 MG tablet Take 5 mg by mouth 1 (one) time each day 3 Active carbidopa-levodo pa (SINEMET) 25-100 MG per tablet Take 1 tablet by mouth in the morning and 1 tablet at noon and 1 tablet in the evening. 3 Active gabapentin (NEURONTIN) 100 MG capsule Take 100 mg by mouth in the morning and 100 mg in the evening. 3 Active furosemide (LASIX) 40 MG tablet Take 40 mg by mouth in the morning and 40 mg in the evening. 3 Active mupirocin (BACTROBAN) 2 % ointment Apply topically daily 3 Active cinnamon 500 MG capsule Take 500 mg by mouth 1 (one) time each day Active Multiple Vitamins-Mineral s (VITAMIN D3 COMPLETE PO) Take 1,000 Units by mouth 1 (one) time each day Active Garrison-3 Fatty Acids (OMEGA-3 FISH OIL PO) Take 1 capsule by mouth 1 (one) time each day 120-180 mg daily Active atorvastatin (LIPITOR) 40 MG tablet Take 40 mg by mouth 1 (one) time each day 4 Active Empagliflozin (Jardiance) 25 MG tablet Take 25 mg by mouth 1 (one) time each day 3 Active Insulin Lispro, 1 Unit Dial, 100 UNIT/ML solution pen-injector Inject 15 Units under the skin 1 (one) time each day Active lisinopril 20 MG tablet Take 20 mg by mouth 1 (one) time each day 3 Active metoprolol tartrate (LOPRESSOR) 50 MG tablet Take 50 mg by mouth in the morning and 50 mg in the evening. 4 Active potassium chloride (K-TAB) 20 MEQ CR tablet Take 20 mEq by mouth 1 (one) time each day 4 Active tamsulosin (FLOMAX) 0.4 MG 24 hr capsule Take 0.4 mg by mouth 1 (one) time each day 4 Active potassium chloride (KLOR-CON M20) 20 MEQ CR tabletIndication s:Hypokalemia,Vi tamin D deficiency, not otherwise specified,Stage 3a chronic kidney disease (HCC) TAKE 1 BY MOUTH ONCE DAILY (DO NOT CRUSH OR CHEW) 30 tablet 5 Active Active Problems Problem Noted Date Diagnosed Date Acute urinary tract infection 12/23/2022 Back pain 12/23/2022 12/23/2022 Chronic diarrhea 12/23/2022 12/23/2022 Coronary arteriosclerosis 12/23/20222022 Obesity 12/23/2022 12/23/2022 Retention of urine 12/23/2022 12/23/2022 Neuropathy due to type 2 diabetes mellitus 12/2312/23/2022 Hyperlipidemia 08/24/2022 12/23/2022 Uncontrolled type 2 diabetes mellitus 08/24/2022 Overview (01/12/2024): Replacing diagnoses that were inactivated after the 01/12/24 Regulatory Import Blindness AND/OR vision impairment level 023 12/23/2022 Overview (12/23/2022): Blindness; dr donte saleem mo; 06/16/2022 4:38PM by Abigail Ceja, Office Visit; Promoted; acuity set as *; Chronic obstructive pulmonary disease 06/16/2022 12/23/2022 Overview (12/23/2022): COPD; 06/16/2022 4:38PM by Abigail Ceja, Office Visit; Promoted; acuity set as *; Obstructive sleep apnea syndrome 06/16/2022 12/23/2022 Overview (12/23/2022): Sleep Apnea; 06/16/2022 4:38PM by Abigail Ceja, Office Visit; Promoted; acuity set as *; Myocardial infarction 11/13/2021 Umbilical hernia 11/13/2021 Microalbuminuria 03/22/2019 Stage 3a chronic kidney disease 08/31/2018 Overview (04/16/2020): Update for Diagnosis Load Essential hypertension 08/31/2018 Type 2 diabetes mellitus 08/31/2018 Vitamin D deficiency 08/31/2018 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 Family History Medical History Relation Comments Diabetes Sibling Relation Status Comments Father Mother Sibling Social History Tobacco Use Types Packs/Day Years Used Date Smoking Tobacco: Never Smokeless Tobacco: Never Tobacco Cessation:Counseling Given: Not Answered Alcohol Use Standard Drinks/Week Comments Not Currently 0 (1 standard drink = 0.6 oz pur e alcohol) Sex and Gender Information Value Date Recorded Sex Assigned at Not on file Legal Sex Male 12:44 PM EST Gender Identity Not on file Sexual Orientation Not on file Last Filed Vital Signs Vital Sign Reading Time Taken Comments Blood Pressure 122/74 01/04/2024 2:50 PM CDT Pulse 89 01/04/2024 2:50 PM CDT Temperature - - Respiratory Rate - - Oxygen Saturation 98% 01/04/2024 2:50 PM CDT Inhaled Oxygen Concentration - - Weight 94.9 kg (209 lb 3.2 oz) 12/23/2022 9:09 A M CDT Height 172.7 cm (5' 8 ) 12/23/2022 9:09 AM CDT Body Mass Index 31.81 12/23/2022 9:09 AM CDT Plan of Treatment Health Maintenance Due Date Last Done Comments Pneumococcal Vaccine: 50+ Years (1 of 2 - PCV) 10/13/1974 Colorectal Cancer Screening: Annual FOBT 10/13/2004 Colorectal Cancer Screening: Colonoscopy 10/13/2004 Colorectal Cancer Screening: Sigmoidoscopy 10/13/2004 Diabetes: Pedal Pulse Checked 08/31/2018 Diabetes: Sensory Foot Exam 08/31/2018 Diabetes: Visual Foot Exam 08/31/2018 Diabetes: Hemoglobin A1C 04/18/2023 01/16/2023 Influenza Vaccine (#1) 2024 Diabetes: Ophthalmology Exam 02/09/2025, 08/11/2023, 06/10/2023 Hepatitis B Vaccine Aged Out No longe r eligible based on patient's age to complete this topic Procedures Procedure Name Priority Date/Time Associated Diagnosis Comments HEMOGLOBIN A1C (EXTERNAL RESULT ENTRY) Routine 01/16/2023 8:59 AM CDT from Last 3 Months or Most Recently Relevant to Health Maintenance Results * Hemoglobin A1C (01/16/2023 8:59 AM CDT) Hemoglobin A1C 9.8 Blood specimen (specimen) Venous blood / Unknown 01/16/2023 8:59 AM CDT Adelaida Herring MA - 01/16/2023 2:49 PM CDT [facility] [address] [place] [address] Tony Sanford, District Loss Prevention Manager [facility] External Provider LAB BLOOD ORDERABLES Final Result from Last 3 Months or Most Recently Relevant to Health Maintenance Insurance Medicaid [place] ([id number]) [facility] ([place], [place]) Snp Care Teams Shower Screen Installer Relationship Specialty Start Date End Date Roxana James FNP [address] [place] [phone] PCP - General Nurse Practitioner 11/13/21
--- OUTSIDE RECORDS SUMMARY | 2024-11-02 08:07 | XMS_ITS | Encounter Summary ---
Author Organization [facility] Address [address] [place] [address] Care Team Providers Care Medical Doctor Name Role Phone Adolph Pal MD Primary Care Provider [phone] Encounter Details Date Type Department Care Team (Late st Contact Info) Description 12/04/2014 Lab Requisition [facility] Laboratory Services [place] [address] [place] [address] Andres Simpson NP [address] [place] [address] Social History Tobacco Use Types Packs/Day Years Used Date Smoking Tobacco: Never Alcohol Use Standard Drinks/Week Comments No 0 (1 standard drink = 0.6 oz pur e alcohol) Sex and Gender Information Value Date Recorded Sex Assigned at Not on file Legal Sex Male 4:49 AM OUTBOUND TELEMARKETER Gender Identity Not on file Sexual Orientation [...] - 3.1 ng/mL 12/04/2014 11:46 PM CDT [facility]OR[facility] Blood 12/04/2014 10:4 1 PM CDT 12/04/2014 10:41 PM CDT Andres Simpson NP CHEMISTRY ORDERABLES Final Resu lt [facility] [place] CLIA # [id number] [address] [place] [address] 6[address]38 documented in this encounter Visit Diagnoses Not on filedocumented in this encounter Care Teams Medical Doctor Relationship Specialty Start Date End Date Adolph Pal MD [address] [place] [address] PCP - General Pediatrics 05/25/20 documented as of this encounter
--- OUTSIDE RECORDS SUMMARY | 2024-11-02 08:07 | XMS_ITS | Encounter Summary ---
Author Organization [employer] [facility] Address [address] [place] [address] Care Team Providers Care Residential Designer Name Role Phone Adolph Pal MD Primary Care Provider [phone] Encounter Details Date Type Department Care Team (Late st Contact Info) Description 03/13/2014 Ancillary Orders [facility] Laboratory Services [place] [address] [place] [address] Social History Tobacco Use Types Packs/Day Years Used Date Smoking Tobacco: Never Alcohol Use Standard Drinks/Week Comments No 0 (1 standard drink = 0.6 oz pur e alcohol) Sex and Gender Information Value Date Recorded Sex Assigned at Not on file Legal Sex Male 4:49 AM 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 WALL INSTALLER Gender Identity Not on file Sexual Orientation Not on file Occupation Industry Job Start Date Job End Date Not on file Not on file Not on file Not on file documented as of this encounter Plan of Treatment Not on file documented as of this encounter Procedures Procedure Name Priority Date/Time Associated Diagnosis Comments HEMOGLOBIN A1C Routine 03/13/2014 8:52 PM SEGMENTAL WALL INSTALLER COMPREHENSIVE METABOLIC PANEL Routine 03/13/2014 8:52 PM SEGMENTAL WALL INSTALLER documented in this encounter Results * (ABNORMAL) HEMOGLOBIN A1C (03/13/2014 8:52 PM SEGMENTAL WALL INSTALLER) HEMOGLOBIN A1C 10.8(H) 4.5 - 6.2 % 03/14/2014 12:40 AM SEGMENTAL WALL INSTALLER [facility] EST. AVG GLUCOSE, A1C 263 mg/dL 03/14/2014 12:40 AM SEGMENTAL WALL INSTALLER [facility] Blood 03/13/2014 8:52 PM SEGMENTAL WALL INSTALLER 03/13/2014 10:50 PM SEGMENTAL WALL INSTALLER Andres RUANO CHEMISTRY ORDERABLES Final R esult [facility] [place] CLIA # [id number] [address] [address] * (ABNORMAL) COMPREHENSIVE METABOLIC PANEL (03/13/2014 8:52 PM SEGMENTAL WALL INSTALLER) SODIUM 137 136 - 145 mmol/L 03/13/2014 11:50 PM [facility] POTASSIUM 4.2 3.5 - 5.1 mmol/L 03/13/2014 11:50 PM [facility] CHLORIDE 99 98 - 107 mmol/L 03/13/2014 11:50 PM [facility] CO2 28 21 - 32 mmol/L 03/13/2014 11:50 PM [facility] CALCIUM 9.9 8.5 - 10.1 mg/dL 03/13/2014 11:50 PM [facility] BUN 17 7 - 18 mg/dL 03/13/2014 11:50 PM [facility] CREATININE 1.30 0.60 - 1.30 mg/dL 03/13/2014 11:50 PM [facility] GLUCOSE 355(H) 74 - 106 mg/dL 03/13/2014 11:50 PM [facility] TOTAL PROTEIN 7.6 6.4 - 8.2 g/dL 03/13/2014 11:50 PM [facility] ALBUMIN 4.0 3.4 - 5.0 g/dL 03/13/2014 11:50 PM [facility] BILIRUBIN TOTAL 0.6 0.2 - 1.0 mg/dL 03/13/2014 11:50 PM [facility] ALKALINE PHOSPHATASE 89 46 - 116 U/L 03/13/2014 11:50 PM [facility] [employer] LABORATORY [facility] AST 47(H) 15 - 37 U/L 03/13/2014 11:50 PM [facility] ALT 58 30 - 65 U/L 03/13/2014 11:50 PM [facility] GFR 57(L) >=60 mL/min/1.7 3 sq meter 03/13/2014 11:50 PM [facility] [employer] [facility] Comment: eGFR has not been validated for [...] mL/min/1.7 3 sq meter 03/13/2014 11:50 PM [facility] [employer] [facility] ANION GAP 10(L) 12 - 20 mmol/L 03/13/2014 11:50 PM [facility] [employer] [facility] Blood 03/13/2014 8:52 PM SEGMENTAL WALL INSTALLER 03/13/2014 10:50 PM SEGMENTAL WALL INSTALLER Narrative [facility] [employer] [facility] - 03/13/2014 11:50 PM SEGMENTAL WALL INSTALLER Effective 12/15/2013, the Alkaline Phosphatase test method and reference range have changed. Please take this into consideration when interpreting results prior to or after this date. Andres RUANO CHEMISTRY ORDERABLES Final R esult [facility] [employer] [id number] [address] [place] [address] documented in this encounter Visit Diagnoses Not on filedocumented in this encounter Care Teams Residential Designer Relationship Specialty Start Date End Date Adolph Pal MD [address] [place] [phone] PCP - General Pediatrics 05/25/20 documented as of this encounter
--- OUTSIDE RECORDS SUMMARY | 2024-11-02 08:07 | XMS_ITS | Encounter Summary ---
Author Organization [facility] Address [address] [place] [address] Care Team Providers Care Foaming Machine Operator Name Role Phone Adolph Pal MD Primary Care Provider [phone] Encounter Details Date Type Department Care Team (Late st Contact Info) Description 07/05/2012 Ancillary Orders [facility] Laboratory Services [place] [address] [place] [address] Sick Social History Tobacco Use Types Packs/Day Years Used Date Smoking Tobacco: Never Alcohol Use Standard Drinks/Week Comments No 0 (1 standard drink = 0.6 oz pur e alcohol) Sex and Gender Information Value Date Recorded Sex Assigned at Not on file Legal 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 NURSE Gender Identity Not on file Sexual [...] - 200 mg/dL 07/05/2012 11:28 PM T [facility] [place] TRIGLYCERIDE 226(H) 30 - 200 mg/dL 07/05/2012 11:28 PM T [facility] [place] HDL 26(L) 35 - 80 mg/dL 07/05/2012 11:28 PM CDT [facility] LDL CALCULATED 72 0 - 100 mg/dL 07/05/2012 11:28 PM CDT [facility] Blood specimen (specimen) 07/05/2012 8:46 PM CDT 07/05/2012 10:54 PM CDT Narrative [facility] [employer] Vacc[employer] [facility] - 07/05/2012 11:28 PM CDT TOTAL CHOLESTEROL [...] CHEMISTRY ORDERABLES Final Result Performing Organization Address [facility] Co de Phone Number [facility] CLIA # [id number] [address] [place] [address] * (ABNORMAL) HEMOGLOBIN A1C (07/05/2012 8:46 PM CDT) HEMOGLOBIN A1C 13.3(H) 4.5 - 6.2 % 07/06/2012 1:02 AM CDT [facility] [employer] Vacc[employer] [facility] EST. AVG GLUCOSE, A1C 335 mg/dL 07/06/2012 1:02 AM CDT [facility] Blood specimen (specimen) 07/05/2012 8:46 PM CDT 07/05/2012 10:54 PM CDT us Rosalba Villasenor MD CHEMISTRY ORDERABLES Final Result Performing Organization Address [facility]/ZIP Co de Phone Number [facility] CLIA # [id number] [address] [place] [address] * (ABNORMAL) COMPREHENSIVE METABOLIC PANEL (07/05/2012 8:46 PM CDT) SODIUM 140 136 - 145 mmol/L 07/05/2012 11:28 PM CDT [facility] POTASSIUM 4.0 3.5 - 5.1 mmol/L 07/05/2012 11:28 PM [facility] CHLORIDE 101 98 - 107 mmol/L 07/05/2012 11:28 PM [facility] CO2 31 21 - 32 mmol/L 07/05/2012 11:28 PM [facility] CALCIUM 9.4 8.5 - 10.1 mg/dL 07/05/2012 11:28 PM [facility] BUN 15 7 - 18 mg/dL 07/05/2012 11:28 PM [facility] CREATININE 1.50(H) 0.60 - 1.30 mg/dL 07/05/2012 11:28 PM [facility] GLUCOSE 122(H) 74 - 106 mg/dL 07/05/2012 11:28 PM [facility] TOTAL PROTEIN 7.5 6.4 - 8.2 g/dL 07/05/2012 11:28 PM [facility] ALBUMIN 4.1 3.4 - 5.0 g/dL 07/05/2012 11:28 PM [facility] BILIRUBIN TOTAL 0.5 0.2 - 1.0 mg/dL 07/05/2012 11:28 PM [facility] ALKALINE PHOSPHATASE 101 50 - 136 U/L 07/05/2012 11:28 PM [facility] AST 26 15 - 37 U/L 07/05/2012 11:28 PM [facility] ALT 48 30 - 65 U/L 07/05/2012 11:28 PM [facility] GFR 48(L) >=60 mL/min/1.7 3 sq meter 07/05/2012 11:28 PM [facility] GFR, 59(L) >=60 mL/min/1.7 3 sq meter 07/05/2012 11:28 PM [facility] Blood specimen (specimen) 07/05/2012 8:46 PM T 07/05/2012 10:54 PM CDT Narrative [facility] - 07/05/2012 11:28 PM CDT eGFR has [...] Rosalba Villasenor MD CHEMISTRY ORDERABLES Final Result [facility] [employer] Vacc[employer] [facility] CLIA # [id number] [address] [place] [address] documented in this encounter Visit Diagnoses Diagnosis Sick Other unknown and unspecified cause of morbidity or mortality documented in this encounter Care Teams Foaming Machine Operator Relationship Specialty Start Date End Date Adolph Pal MD [address] [place] [phone] PCP - General Pediatrics 05/25/20 documented as of this encounter
--- OUTSIDE RECORDS SUMMARY | 2024-11-02 08:07 | XMS_ITS | Encounter Summary ---
Author Organization [facility] Address [address] [place] [address] Care Team Providers Care General Utility Machine Operator Name Role Phone Adolph Pal MD Primary Care Provider [phone] Encounter Details Date Type Department Care Team (Late st Contact Info) Description 06/26/2014 Lab Requisition [facility] [place] [address] [place] [address] Kimber Mendoza, RELEASE ENGINEER [address] [place] [address] Social History Tobacco Use Types Packs/Day Years Used Date Smoking Tobacco: Never Alcohol Use Standard Drinks/Week Comments No 0 (1 standard drink = 0.6 oz pur e alcohol) Sex and Gender Information Value Date Recorded Sex Assigned at Not on file Legal Sex Male 4:49 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 AVG GLUCOSE, A1C 295 mg/dL 06/27/2014 12:06 AM CDT [facility] [employer] [facility] Blood 06/26/2014 10:2 3 PM CDT 06/26/2014 10:23 PM CDT Kimber Mendoza RELEASE ENGINEER CHEMISTRY ORDERABLES Final Result [facility] [employer] [facility] CLIA # [id number] [address] [place] [phone] * (ABNORMAL) BASIC METABOLIC PANEL (06/26/2014 10:23 PM CDT) SODIUM 135(L) 136 - 145 mmol/L 06/26/2014 11:24 PM T [facility] [employer] [facility] POTASSIUM 3.6 3.5 - 5.1 mmol/L 06/26/2014 11:24 PM T [facility] [employer] [facility] CHLORIDE 99 98 - 107 mmol/L 06/26/2014 11:24 PM T [facility] [employer] [facility] CO2 25 21 - 32 mmol/L 06/26/2014 11:24 PM CDT [facility] [employer] [facility] CALCIUM 10.1 8.5 - 10.1 mg/dL 06/26/2014 11:24 PM [facility] [employer] [facility] BUN 25(H) 7 - 18 mg/dL 06/26/2014 11:24 PM [facility] [employer] [facility] CREATININE 1.70(H) 0.60 - 1.30 mg/dL 06/26/2014 11:24 PM T [facility] [employer] [facility] GLUCOSE 236(H) 74 - 106 mg/dL 06/26/2014 11:24 PM T [facility] [employer] [facility] GFR 42(L) >=60 mL/min/1.7 3 sq meter 06/26/2014 11:24 PM [facility] [employer] [facility] Comment: eGFR has not been validated [...] 3 sq meter 06/26/2014 11:24 PM CDT [facility] [place] ANION GAP 11(L) 12 - 20 mmol/L 06/26/2014 11:24 PM CDT [facility] [place] Blood 06/26/2014 10:2 3 PM CDT 06/26/2014 10:23 PM CDT Kimber J Reji RELEASE ENGINEER CHEMISTRY ORDERABLES Final Result Performing Organization Address City/[facility]/ZIP Co de Phone Number [facility] [employer] [facility] CLIA # [id number] [address] [place] [address] * ALT (06/26/2014 10:23 PM CDT) ALT 37 30 - 65 U/L 06/26/2014 11:24 PM [facility] [employer] [facility] [place] Blood 06/26/2014 10:2 3 PM CDT 06/26/2014 10:23 PM CDT Kimber [id number] RELEASE ENGINEER CHEMISTRY ORDERABLES Final Result Performing Organization Address City/[facility]/ZIP Co de Phone Number [facility] [employer] [facility] CLIA # [id number] [address] [place] [phone] documented in this encounter Visit Diagnoses Not on filedocumented in this encounter Care Teams General Utility Machine Operator Relationship Specialty Start Date End Date Adolph Pal MD [address] [place] [address] PCP - General Pediatrics 05/25/20 documented as of this encounter
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
--- OUTSIDE RECORDS SUMMARY | 2024-11-02 08:07 | XMS_ITS | Encounter Summary ---
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 Tractor Trailer Truck Driver Name Role Phone Adolph Pal MD Primary Care Provider [phone] [phone] Encounter Details Date Type Department Care Team (Latest Contact Info) Description 10/17/2013 Ancillary Orders [facility] General Laboratory Services [place] [address] [place] [address] Type II or unspecified type diabetes mellitus without mention of complication, not stated as uncontrolled (CMS/[facility]) Social History Tobacco Use Types Packs/Day Years Used Date Smoking Tobacco: Never Alcohol Use Standard Drinks/Week Comments No 0 (1 standard drink = 0.6 oz pur e alcohol) Sex and Gender Information Value Date Recorded Sex Assigned at Not on file 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 Gender Identity Not on file Sexual [...] - 200 mg/dL 10/17/2013 9:49 PM CDT [facility] TRIGLYCERIDE 383(H) 30 - 200 mg/dL 10/17/2013 9:49 PM CDT [facility] HDL 21(L) 35 - 80 mg/dL 10/17/2013 9:49 PM CDT [facility] LDL CALCULATED 66 0 - 100 mg/dL 10/17/2013 9:49 PM CDT [facility] Blood 10/17/2013 8:30 PM CDT 10/17/2013 9:10 PM CDT Narrative [facility] [employer] [facility] - 10/17/2013 9:49 PM CDT TOTAL CHOLESTEROL mg/dL Desirable <200 Borderline high 200-239 High >=240 TRIGLYCERIDES mg/dL Normal <150 Borderline high 150-199 High 200-499 Very high >=500 HDL CHOLESTEROL mg/dL Low <40 Normal 40-60 Desirable >60 LDL CHOLESTEROL mg/dL Optimal <100 Low risk 100-129 Borderline high 130-159 High 160-189 Very high >=190 Based on AHA/NCEP Guidelines Linda Bazan [facility] CHEMISTRY ORDERABLES Final Resu lt [facility] [employer] [facility] CLIA # [id number] [address] [place] [address] * (ABNORMAL) HEMOGLOBIN A1C (10/17/2013 8:30 PM CDT) HEMOGLOBIN A1C 14.6(H) 4.5 - 6.2 % 10/17/2013 10:18 PM CDT [facility] [employer] [facility] EST. AVG GLUCOSE, A1C 372 mg/dL 10/17/2013 10:18 PM CDT [facility] [employer] [facility] Blood 10/17/2013 8:30 PM CDT 10/17/2013 9:10 PM CDT us Linda Bazan DEPARTMENT OPERATIONS MANAGER CHEMISTRY ORDERABLES Final Resu lt [facility] LABORATORY SERVICES - [place] CLIA # [id number] [address] [place] [address] * (ABNORMAL) COMPREHENSIVE METABOLIC PANEL (10/17/2013 8:30 PM CDT) SODIUM 136 136 - 145 mmol/L 10/17/2013 9:50 PM CDT [facility] LABORATORY [facility] [place] POTASSIUM 4.3 3.5 - 5.1 mmol/L 10/17/2013 9:50 PM CDT [facility] LABORATORY [facility] [place] CHLORIDE 101 98 - 107 mmol/L 10/17/2013 9:50 PM CDT [facility] LABORATORY [facility] [place] CO2 25 21 - 32 mmol/L 10/17/2013 9:50 PM CDT [facility] LABORATORY [facility] [place] CALCIUM 9.1 8.5 - 10.1 mg/dL 10/17/2013 9:50 PM CDT [facility] LABORATORY [facility] [place] BUN 18 7 - 18 mg/dL 10/17/2013 9:50 PM CDT [facility] LABORATORY [facility] [place] CREATININE 1.50(H) 0.60 - 1.30 mg/dL 10/17/2013 9:50 PM CDT [facility] LABORATORY [facility] [place] GLUCOSE 377(H) 74 - 106 mg/dL 10/17/2013 9:50 PM T [facility] LABORATORY [facility] [place] TOTAL PROTEIN 7.5 6.4 - 8.2 g/dL 10/17/2013 9:50 PM CDT [facility] LABORATORY [facility] [place] ALBUMIN 3.9 3.4 - 5.0 g/dL 10/17/2013 9:50 PM CDT [facility] LABORATORY [facility] [place] BILIRUBIN TOTAL 0.3 0.2 - 1.0 mg/dL 10/17/2013 9:50 PM CDT [facility] LABORATORY [facility] [place] ALKALINE PHOSPHATASE 128 50 - 136 U/L 10/17/2013 9:50 PM CDT [facility]ATORY SERVICES - [place] AST 31 15 - 37 U/L 10/17/2013 9:50 PM CDT [facility] LABORATORY [facility] [place] ALT 55 30 - 65 U/L 10/17/2013 9:50 PM CDT [facility] LABORATORY [facility] [place] GFR 48(L) >=60 mL/min/1.7 3 sq meter 10/17/2013 9:50 PM CDT [facility] LABORATORY SERVICES - [place] Comment: eGFR has not been validated [...] 3 sq meter 10/17/2013 9:50 PM CDT [facility] LABORATORY [employer] [facility] Blood 10/17/2013 8:30 PM CDT 10/17/2013 9:10 PM CDT Linda Bazan DEPARTMENT OPERATIONS MANAGER CHEMISTRY ORDERABLES Final Resu lt [employer] [facility] CLIA # [id number] [address] [place] [address] documented in this encounter Visit Diagnoses Diagnosis Type II or unspecified type diabetes mellitus without mention of complication, not stated as uncontrolled documented in this encounter Care Teams Tractor Trailer Truck Driver Relationship Specialty Start Date End Date Adolph Pal MD [address] [place] [address] PCP - General Pediatrics 05/25/20 documented as of this encounter
--- OUTSIDE RECORDS SUMMARY | 2024-11-02 08:07 | XMS_ITS | Encounter Summary ---
Author Organization [employer] [facility] Address [address] [place] [address] Care Team Providers Care Outpatient Facility Physical Therapist Name Role Phone Adolph Pal MD Primary Care Provider [phone] Encounter Details Date Type Department Care Team (Late st Contact Info) Description 08/14/2014 Lab Requisition [facility] Hospital Laboratory Services [place] [address] [place] [address] Randy Menendez, DO [address] [place] [phone] Other unknown and unspecified cause of morbidity or mortality Social History Tobacco Use Types Packs/Day Years Used Date Smoking Tobacco: Never Alcohol Use Standard Drinks/Week Comments No 0 (1 standard drink = 0.6 oz pur e alcohol) Sex and Gender Information Value Date Recorded Sex Assigned at Not on file Legal Sex Male 4:49 AM NEGATIVE NOTCHER Gender Identity Not on file Sexual Orientation [...] - 6.2 % 08/15/2014 1:30 AM CDT [facility] LABORATORY SERVICES - [place] EST. AVG GLUCOSE, A1C 258 mg/dL 08/15/2014 1:30 AM T [facility] LABORATORY [facility] Blood Collection / Unknown 08/14/2014 10:00 PM CDT 08/14/2014 10:00 PM CDT us Randy Menendez DO CHEMISTRY ORDERABLES Final Resu lt [facility]ORATORY SERVICES - [place] CLIA # [id number] [address] [place] [address] * (ABNORMAL) COMPREHENSIVE METABOLIC PANEL (08/14/2014 10:00 PM CDT) SODIUM 138 136 - 145 mmol/L 08/14/2014 11:47 PM T [facility] LABORATORY [facility] POTASSIUM 3.9 3.5 - 5.1 mmol/L 08/14/2014 11:47 PM T [facility] LABORATORY [facility] [place] CHLORIDE 103 98 - 107 mmol/L 08/14/2014 11:47 PM T [facility] LABORATORY [facility] [place] CO2 25 21 - 32 mmol/L 08/14/2014 11:47 PM T [facility] [employer] [facility] [place] CALCIUM 9.2 8.5 - 10.1 mg/dL 08/14/2014 11:47 PM T [facility] [employer] [facility] BUN 25(H) 7 - 18 mg/dL 08/14/2014 11:47 PM T [facility] LABORATORY [facility] CREATININE 1.30 0.60 - 1.30 mg/dL 08/14/2014 11:47 PM T [facility] LABORATORY [facility] [place] GLUCOSE 195(H) 74 - 106 mg/dL 08/14/2014 11:47 PM T [facility] LABORATORY [facility] [place] TOTAL PROTEIN 7.4 6.4 - 8.2 g/dL 08/14/2014 11:47 PM T [facility] LABORATORY [facility] [place] ALBUMIN 3.8 3.4 - 5.0 g/dL 08/14/2014 11:47 PM T [facility] LABORATORY [facility] [place] BILIRUBIN TOTAL 0.3 0.2 - 1.0 mg/dL 08/14/2014 11:47 PM T [facility] LABORATORY [facility] ALKALINE PHOSPHATASE 82 46 - 116 U/L 08/14/2014 11:47 PM [facility] AST 26 15 - 37 U/L 08/14/2014 11:47 PM [facility] ALT 39 30 - 65 U/L 08/14/2014 11:[address] [facility] GFR 57(L) >=60 mL/min/1.7 3 sq meter 08/14/2014 11:47 PM [facility] [employer] [facility] Comment: eGFR has not been validated [...] 3 sq meter 08/14/2014 11:47 PM T [facility] [employer] [facility] ANION GAP 10(L) 12 - 20 mmol/L 08/14/2014 11:47 PM [facility] [employer] [facility] Blood Collection / Unknown 08/14/2014 10:00 PM CDT 08/14/2014 10:00 PM CDT Narrative [facility] [employer] [facility] - 08/14/2014 11:47 PM CDT Effective 12/15/2013, the Alkaline Phosphatase test method and reference range have changed. Please take this into consideration when interpreting results prior to or after this date. us Randy Menendez DO CHEMISTRY ORDERABLES Final Resu lt [facility] [employer] [facility] CLIA # [id number] [address] [place] [address] documented in this encounter Visit Diagnoses Diagnosis Other unknown and unspecified cause of morbidity or mortality documented in this encounter Care Teams Outpatient Facility Physical Therapist Relationship Specialty Start Date End Date Adolph Pal MD [address] [place] [phone] PCP - General Pediatrics 05/25/20 documented as of this encounter
--- OUTSIDE RECORDS SUMMARY | 2024-11-02 08:07 | XMS_ITS | Encounter Summary ---
Author Organization [employer] [facility] Address [address] [place] [address] Care Team Providers Care Management Professor Name Role Phone Adolph Pal MD Primary Care Provider [phone] Encounter Details Date Type Department Care Team (Late st Contact Info) Description 10/18/2012 Ancillary Orders [facility] Laboratory Services [place] [address] [place] [address] Sick Social History Tobacco Use Types Packs/Day Years Used Date Smoking Tobacco: Never Alcohol Use Standard Drinks/Week Comments No 0 (1 standard drink = 0.6 oz pur e alcohol) Sex and Gender Information Value Date Recorded Sex Assigned at Not on file 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 CALCIUM 9.4 8.5 - 10.1 mg/dL 10/18/2012 10:48 PM CDT [facility] BUN 22(H) 7 - 18 mg/dL 10/18/2012 10:48 PM CDT [facility] CREATININE 1.70(H) 0.60 - 1.30 mg/dL 10/18/2012 10:48 PM T [facility] GLUCOSE 315(H) 74 - 106 mg/dL 10/18/2012 10:48 PM CDT [facility] GFR 42(L) >=60 mL/min/1.7 3 sq meter 10/18/2012 10:48 PM T [facility] Comment: eGFR has not been validated [...] 3 sq meter 10/18/2012 10:48 PM T [facility] Comment: eGFR has not been validated [...] 10/18/2012 10:03 PM CDT us Kimber Mendoza PEDIATRIC SPEECH LANGUAGE PATHOLOGIST CHEMISTRY ORDERABLES Final Result [facility] CLIA # [id number] [address] [place] [address] * (ABNORMAL) HEMOGLOBIN A1C (10/18/2012 8:33 PM CDT) HEMOGLOBIN A1C 9.8(H) 4.5 - 6.2 % 10/18/2012 11:56 PM CDT [facility] EST. AVG GLUCOSE, A1C 235 mg/dL 10/18/2012 11:56 PM CDT [facility] Blood specimen (specimen) Venipuncture - Lab Collect / Unknown 10/18/2012 8:33 PM CDT 10/18/2012 10:03 PM CDT Kimber Mendoza PEDIATRIC SPEECH LANGUAGE PATHOLOGIST CHEMISTRY ORDERABLES Final Result [facility] CLIA # [id number] [address] [place] [address] documented in this encounter Visit Diagnoses Diagnosis Sick Other unknown and unspecified cause of morbidity or mortality documented in this encounter Care Teams Management Professor Relationship Specialty Start Date End Date Adolph Pal MD [address] [place] [phone] PCP - General Pediatrics 05/25/20 documented as of this encounter
--- OUTSIDE RECORDS SUMMARY | 2024-11-02 08:07 | XMS_ITS | Encounter Summary ---
Author Organization [facility] Address [address] [place] [address] Care Team Providers Care Bevel Polisher Name Role Phone Adolph Pal MD Primary Care Provider [phone] Encounter Details Date Type Department Care Team (Late st Contact Info) Description 01/16/2015 Ancillary Orders [facility] Medicine [place] [address] [facility] [address] [place] [address] Amy Valenzuela, [place] NO ADDRESS ON FILE 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 ([facility]) (Primary Dx); Callous ulcer, limited to breakdown of skin ([facility]) Social History Tobacco Use Types Packs/Day Years Used Date Smoking Tobacco: Former Cigarettes Q uit: 04/13/1984 Smokeless Tobacco: Former Quit: 04/13/1974 Alcohol Use Standard Drinks/Week Comments No 0 (1 standard drink = 0.6 oz pur e alcohol) Sex and Gender Information Value Date Recorded Sex Assigned at Not on file 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 no acute changes seen Amy [place] [facility] G ORDERABLES Final Result documented in this encounter Visit Diagnoses Diagnosis 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 (CMS/HCC) Callous ulcer, limited to breakdown of skin (CMS/HCC) 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 (CMS/HCC)- Primary Callous ulcer, limited to breakdown of skin (CMS/HCC) documented in this encounter Care Teams Bevel Polisher Relationship Specialty Start Date End Date Adolph Pal MD [address] [place] [phone] PCP - General Pediatrics 05/25/20 documented as of this encounter
--- OUTSIDE RECORDS SUMMARY | 2024-11-02 08:07 | XMS_ITS | Encounter Summary ---
Author Organization [employer] [facility] Address [address] [place] [address] Care Team Providers Care Receiving Coordinator Name Role Phone Adolph Pal MD Primary Care Provider [phone] Encounter Details Date Type Department Care Team (Latest Contact Info) Description 10/31/2013 Ancillary Orders [facility] General Laboratory Services [place] [address] [place] [address] Type II or unspecified type diabetes mellitus without mention of complication, not stated as uncontrolled (CMS/[facility]) Social History Tobacco Use Types Packs/Day Years Used Date Smoking Tobacco: Never Alcohol Use Standard Drinks/Week Comments No 0 (1 standard drink = 0.6 oz pur e alcohol) Sex and Gender Information Value Date Recorded Sex Assigned at Not on file 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 AVG GLUCOSE, A1C 346 mg/dL 10/31/2013 11:13 PM CDT [facility] Blood Collection / Unknown 10/31/2013 9:26 PM CDT 10/31/2013 9:26 PM CDT Artie Flanagan DO CHEMISTRY ORDERABLES Final Resu lt [facility] CLIA # [id number] [address] [place] [address] * (ABNORMAL) LIPID PANEL (10/31/2013 9:26 PM CDT) CHOLESTEROL 156 130 - 200 mg/dL 10/31/2013 10:03 PM CDT [facility] TRIGLYCERIDE 458(H) 30 - 200 mg/dL 10/31/2013 10:03 PM CDT [facility] HDL 22(L) 35 - 80 mg/dL 10/31/2013 10:03 PM CDT [facility] LDL CALCULATED 0 - 100 mg/dL 10/31/2013 10:03 PM CDT [facility] Comment:Calculated LDL is no t accurate when the Triglyceride value exceeds 400. Blood Collection / Unknown 10/31/2013 9:26 PM CDT 10/31/2013 9:26 PM CDT Narrative [facility] [employer] [facility] - 10/31/2013 10:03 PM CDT TOTAL CHOLESTEROL mg/dL Desirable <200 Borderline high 200-239 High >=240 TRIGLYCERIDES mg/dL Normal <150 Borderline high 150-199 High 200-499 Very high >=500 HDL CHOLESTEROL mg/dL Low <40 Normal 40-60 Desirable >60 LDL CHOLESTEROL mg/dL Optimal <100 Low risk 100-129 Borderline high 130-159 High 160-189 Very high >=190 Based on AHA/NCEP Guidelines us Artie Flanagan DO CHEMISTRY ORDERABLES Final Resu lt [facility] LABORATORY [facility] CLIA # [id number] [address] [address] * (ABNORMAL) COMPREHENSIVE METABOLIC PANEL (10/31/2013 9:26 PM CDT) SODIUM 135(L) 136 - 145 mmol/L 10/31/2013 10:26 PM T [facility] LABORATORY [facility] POTASSIUM 3.4(L) 3.5 - 5.1 mmol/L 10/31/2013 10:26 PM T [facility] LABORATORY [facility] CHLORIDE 99 98 - 107 mmol/L 10/31/2013 10:26 PM T [facility] LABORATORY [facility] CO2 25 21 - 32 mmol/L 10/31/2013 10:26 PM T [facility] LABORATORY [facility] CALCIUM 9.4 8.5 - 10.1 mg/dL 10/31/2013 10:26 PM [facility] LABORATORY [facility] BUN 23(H) 7 - 18 mg/dL 10/31/2013 10:26 PM T [facility] LABORATORY [facility] CREATININE 1.40(H) 0.60 - 1.30 mg/dL 10/31/2013 10:26 PM T [facility] LABORATORY [facility] GLUCOSE 209(H) 74 - 106 mg/dL 10/31/2013 10:26 PM [facility] LABORATORY [facility] TOTAL PROTEIN 7.9 6.4 - 8.2 g/dL 10/31/2013 10:26 PM [facility] LABORATORY [facility] ALBUMIN 4.0 3.4 - 5.0 g/dL 10/31/2013 10:26 PM T [facility] LABORATORY [facility] BILIRUBIN TOTAL 0.3 0.2 - 1.0 mg/dL 10/31/2013 10:26 PM T [facility] LABORATORY [facility] ALKALINE PHOSPHATASE 126 50 - 136 U/L 10/31/2013 10:26 PM T [facility] LABORATORY [facility] AST 24 15 - 37 U/L 10/31/2013 10:26 PM [facility] LABORATORY [facility] ALT 42 30 - 65 U/L 10/31/2013 10:26 PM T [facility] LABORATORY [facility] GFR 52(L) >=60 mL/min/1.7 3 sq meter 10/31/2013 10:26 PM CDT [facility] Comment: eGFR has not been validated [...] 3 sq meter 10/31/2013 10:26 PM CDT [facility] Blood Collection / Unknown 10/31/2013 9:26 PM CDT 10/31/2013 9:26 PM CDT Artie Flanagan DO CHEMISTRY ORDERABLES Final Resu lt [facility] CLIA # [id number] [address] [place] [address] documented in this encounter Visit Diagnoses Diagnosis Type II or unspecified type diabetes mellitus without mention of complication, not stated as uncontrolled documented in this encounter Care Teams Receiving Coordinator Relationship Specialty Start Date End Date Adolph Pal MD [address] [place] [phone] PCP - General Pediatrics 05/25/20 documented as of this encounter
--- OUTSIDE RECORDS SUMMARY | 2024-11-02 08:07 | XMS_ITS | Encounter Summary ---
Author Organization [employer] [facility] Address [address] [place] [address] Care Team Providers Care Shorer Name Role Phone Adolph Pal MD Primary Care Provider [phone] Encounter Details Date Type Department Care Team (Late st Contact Info) Description 02/07/2013 Ancillary Orders [facility] Laboratory Services [place] [address] [place] [address] Sick Social History Tobacco Use Types Packs/Day Years Used Date Smoking Tobacco: Never Alcohol Use Standard Drinks/Week Comments No 0 (1 standard drink = 0.6 oz pur e alcohol) Sex and Gender Information Value Date Recorded Sex Assigned at Not on file 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 Gender Identity Not on file Sexual [...] - 145 mmol/L 02/07/2013 10:37 PM CDT [facility] LABORATORY SERVICES - [place] POTASSIUM 4.0 3.5 - 5.1 mmol/L 02/07/2013 10:37 PM CDT [facility] LABORATORY SERVICES - [place] CHLORIDE 100 98 - 107 mmol/L 02/07/2013 10:37 PM CDT [facility] LABORATORY SERVICES - [place] CO2 23 21 - 32 mmol/L 02/07/2013 10:37 PM [facility] CALCIUM 9.2 8.5 - 10.1 mg/dL 02/07/2013 10:37 PM [facility] BUN 19(H) 7 - 18 mg/dL 02/07/2013 10:37 PM [facility] CREATININE 1.20 0.60 - 1.30 mg/dL 02/07/2013 10:37 PM [facility] GLUCOSE 320(H) 74 - 106 mg/dL 02/07/2013 10:37 PM [facility] TOTAL PROTEIN 7.5 6.4 - 8.2 g/dL 02/07/2013 10:37 PM [facility] ALBUMIN 3.9 3.4 - 5.0 g/dL 02/07/2013 10:37 PM [facility] BILIRUBIN TOTAL 0.4 0.2 - 1.0 mg/dL 02/07/2013 10:37 PM [facility] ALKALINE PHOSPHATASE 117 50 - 136 U/L 02/07/2013 10:37 PM [facility] AST 30 15 - 37 U/L 02/07/2013 10:37 PM [facility] ALT 47 30 - 65 U/L 02/07/2013 10:37 PM [facility] GFR 62 >=60 mL/min/1.7 3 sq meter 02/07/2013 10:37 PM [facility] Comment: eGFR has not been validated for [...] mL/min/1.7 3 sq meter 02/07/2013 10:37 PM [facility] Comment: eGFR has not been validated for [...] 02/07/2013 9:37 PM CDT us Summer Escalona [facility] CHEMISTRY ORDERABLES Final Resul t Performing Organization Address [facility] de Phone Number [facility] [id number] [address] [place] [address] * (ABNORMAL) HEMOGLOBIN A1C (02/07/2013 8:34 PM CDT) HEMOGLOBIN A1C 9.9(H) 4.5 - 6.2 % 02/07/2013 10:55 PM CDT [facility] LABORATORY [facility] EST. AVG GLUCOSE, A1C 237 mg/dL 02/07/2013 10:55 PM CDT [facility] Blood specimen (specimen) Collection / Unknown 02/07/2013 8:34 PM CDT 02/07/2013 9:37 PM CDT us Summer Escalona [facility] CHEMISTRY ORDERABLES Final Resul t Performing Organization Address [facility] de Phone Number [facility] CLIA # [id number] [address] [place] [address] documented in this encounter Visit Diagnoses Diagnosis Sick Other unknown and unspecified cause of morbidity or mortality documented in this encounter Care Teams Shorer Relationship Specialty Start Date End Date Adolph Pal MD [address] [place] [address] PCP - General Pediatrics 05/25/20 documented as of this encounter
--- OUTSIDE RECORDS SUMMARY | 2024-11-02 08:07 | XMS_ITS | Encounter Summary ---
Author Organization [facility] Address [address] [place] [address] Care Team Providers Care Apprentice Cosmetologist Name Role Phone Adolph Pal MD Primary Care Provider [phone] Encounter Details Date Type Department Care Team (Late st Contact Info) Description 12/08/2011 Ancillary Orders [facility] General Laboratory Services [place] [address] [place] [address] Sick Social History Tobacco Use Types Packs/Day Years Used Date Smoking Tobacco: Never Alcohol Use Standard Drinks/Week Comments No 0 (1 standard drink = 0.6 oz pur e alcohol) Sex and Gender Information Value Date Recorded Sex Assigned at Not on file 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 Gender Identity Not on file Sexual Orientation [...] - 145 mmol/L 12/08/2011 10:52 PM CDT [facility] LABORATORY SERVICES - [place] POTASSIUM 3.9 3.5 - 5.1 mmol/L 12/08/2011 10:52 PM CDT [facility] LABORATORY SERVICES - [place] CHLORIDE 103 98 - 107 mmol/L 12/08/2011 10:52 PM CDT [facility] LABORATORY SERVICES - [place] CO2 26 21 - 32 mmol/L 12/08/2011 10:52 PM CDT [facility] CALCIUM 8.9 8.5 - 10.1 mg/dL 12/08/2011 10:52 PM [facility] BUN 22(H) 7 - 18 mg/dL 12/08/2011 10:52 PM [facility] CREATININE 1.60(H) 0.60 - 1.30 mg/dL 12/08/2011 10:52 PM [facility] GLUCOSE 182(H) 74 - 106 mg/dL 12/08/2011 10:52 PM [facility] TOTAL PROTEIN 7.6 6.4 - 8.2 g/dL 12/08/2011 10:52 PM [facility] ALBUMIN 4.0 3.4 - 5.0 g/dL 12/08/2011 10:52 PM [facility] BILIRUBIN TOTAL 0.3 0.2 - 1.0 mg/dL 12/08/2011 10:52 PM [facility] ALKALINE PHOSPHATASE 90 50 - 136 U/L 12/08/2011 10:52 PM [facility] AST 23 15 - 37 U/L 12/08/2011 10:52 PM [facility] ALT 45 30 - 65 U/L 12/08/2011 10:52 PM [facility] GFR 45(L) >=60 mL/min/1.7 3 sq meter 12/08/2011 10:52 PM [facility] GFR, 54(L) >=60 mL/min/1.7 3 sq meter 12/08/2011 10:52 PM [facility] Blood specimen (specimen) 12/08/2011 7:10 PM CDT 12/08/2011 10:21 PM T [facility] - 12/08/2011 10:52 PM CDT [...] ORDERABLES Final Resu lt Performing Organization Address City/[facility] Co de Phone Number [employer] [facility] CLIA # [id number] [address] [place] [address] * (ABNORMAL) HEMOGLOBIN A1C (12/08/2011 7:10 PM CDT) HEMOGLOBIN A1C 10.1(H) 4.5 - 6.2 % 12/08/2011 11:36 PM CDT [facility] LABORATORY [facility] EST. AVG GLUCOSE, A1C 243 mg/dL 12/08/2011 11:36 PM CDT [facility] [employer] [facility] Blood specimen (specimen) 12/08/2011 7:10 PM CDT 12/08/2011 10:21 PM CDT Randy Menendez DO CHEMISTRY ORDERABLES Final Resu lt Performing Organization Address City/[facility] Co de Phone Number [employer] [facility] CLIA # [id number] [address] [place] [address] documented in this encounter Visit Diagnoses Diagnosis Sick Other unknown and unspecified cause of morbidity or mortality documented in this encounter Care Teams Apprentice Cosmetologist Relationship Specialty Start Date End Date Adolph Pal MD [address] [place] [id number] PCP - General Pediatrics 05/25/20 documented as of this encounter
--- OUTSIDE RECORDS SUMMARY | 2024-11-02 08:07 | XMS_ITS | Encounter Summary ---
Author Organization [facility] Address [address] [place] [address] Care Team Providers Care Gas Charger Name Role Phone Adolph Pal MD Primary Care Provider [phone] Encounter Details Date Type Department Care Team (Late st Contact Info) Description 08/06/2009 Ancillary Orders [facility] Cardiology- [place] [address] [place] [address] Artie Flanagan DO NO ADDRESS ON FILE Unspecified Chest Pain Social History Tobacco Use Types Packs/Day Years Used Date Smoking Tobacco: Never Alcohol Use Standard Drinks/Week Comments No 0 (1 standard drink = 0.6 oz pur e alcohol) Sex and Gender Information Value Date Recorded Sex Assigned at Not on file 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
--- OUTSIDE RECORDS SUMMARY | 2024-11-02 08:07 | XMS_ITS | Encounter Summary ---
Author Organization [employer] [facility] Address [address] [place] [address] Care Team Providers Care Regulatory Scientist Name Role Phone Adolph Pal MD Primary Care Provider [phone] Encounter Details Date Type Department Care Team (Late st Contact Info) Description 08/18/2011 Ancillary Orders [facility] General Laboratory Services [place] [address] [place] [address] Sick Social History Tobacco Use Types Packs/Day Years Used Date Smoking Tobacco: Never Alcohol Use Standard Drinks/Week Comments No 0 (1 standard drink = 0.6 oz pur e alcohol) Sex and Gender Information Value Date Recorded Sex Assigned at Not on file 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 Gender Identity Not on file Sexual Orientation [...] - 145 mmol/L 08/18/2011 11:11 PM CDT [facility] LABORATORY SERVICES - [place] POTASSIUM 4.0 3.5 - 5.1 mmol/L 08/18/2011 11:11 PM CDT [facility] LABORATORY SERVICES - [place] CHLORIDE 99 98 - 107 mmol/L 08/18/2011 11:11 PM CDT [facility] LABORATORY SERVICES - [place] CO2 28 21 - 32 mmol/L 08/18/2011 11:11 PM CDT [facility] CALCIUM 10.2(H) 8.5 - 10.1 mg/dL 08/18/2011 11:11 PM CDT [facility] BUN 14 7 - 18 mg/dL 08/18/2011 11:11 PM CDT [facility] CREATININE 1.40(H) 0.60 - 1.30 mg/dL 08/18/2011 11:11 PM CDT [facility] GLUCOSE 179(H) 74 - 106 mg/dL 08/18/2011 11:11 PM CDT [facility] GFR 53(L) >=60 mL/min/1.7 3 sq meter 08/18/2011 11:11 PM CDT [facility] GFR, 64 >=60 mL/min/1.7 3 sq meter 08/18/2011 11:11 PM T [facility] Blood specimen (specimen) 08/18/2011 6:50 PM CDT 08/18/2011 10:29 PM CDT [facility] - 08/18/2011 11:11 PM CDT eGFR has [...] Flanagan DO CHEMISTRY ORDERABLES Final Resu lt [facility] Parse [facility] CLIA # [id number] [address] [place] [address] * (ABNORMAL) HEMOGLOBIN A1C (08/18/2011 6:50 PM CDT) HEMOGLOBIN A1C 9.3(H) 4.5 - 6.2 % 08/18/2011 11:50 PM T [facility] EST. AVG GLUCOSE, A1C 220 mg/dL 08/18/2011 11:50 PM CDT [facility] Blood specimen (specimen) 08/18/2011 6:50 PM CDT 08/18/2011 10:29 PM CDT Artie Flanagan DO CHEMISTRY ORDERABLES Final Resu lt [facility] [place] CLIA # [id number] [address] [facility] [address] [place] [address] documented in this encounter Visit Diagnoses Diagnosis Sick Other unknown and unspecified cause of morbidity or mortality documented in this encounter Care Teams Regulatory Scientist Relationship Specialty Start Date End Date Adolph Pal MD [address] [phone] PCP - General Pediatrics 05/25/20 documented as of this encounter
--- NOTE | 2024-11-02 08:13 | XRR_ITS ---
PROCEDURE INFORMATION: Exam: XR Chest Exam date and time: 11/02/2024 8:14 AM Age: 69 years old Clinical indication: Cough and dyspnea; Prior surgery; Surgery date: 6+ months; Surgery type: Cardaic stents; Additional info: Dyspnea/cough TECHNIQUE: Imaging protocol: Radiologic exam of the chest. Views: 1 view. COMPARISON: 1. CR XR chest 1V portable [id number] 09/03/2024 11:24 PM 2. CR (CHEST, ) 03/07/2021 6:22 PM FINDINGS: Lungs: Hypoaeration of the lungs. No consolidation. Pleural spaces: No pleural effusion. No pneumothorax. Heart/Mediastinum: Cardiomediastinal silhouette is normal. Bones/joints: No acute abnormality. XR/XR chest 1V portable [id number] IMPRESSION: No acute findings.
[2024-11-02 08:36] LABS: Hematocrit 31.1 % (37-53); Hemoglobin 10.10 g/dL (11.27-16.99); Mean Corpuscular HGB Conc 32.5 g/dL (30-55); Mean Corpuscular Hemoglobin 28.9 pg (27-33); Mean Corpuscular Volume 89.1 fl (82-101); Nucleated Red Blood Cells % 0 %; Platelet Count 164 10^3/cmm (157-399); Red Blood Count 3.49 10^6/uL (3.85-5.65); White Blood Count 7.58 10^3/uL (3.29-11.43)
--- NOTE | 2024-11-02 08:40 | W.ED.WEAKNES ---
HPI - Weakness General: Chief complaint: Weakness Stated complaint: Weakness Time Seen by Provider: 11/02/24 08:12 History of Present Illness: 69-year-old male presents emergency room complaining of lightheadedness dizziness when he first got out of bed get very lightheaded dizzy when he tried to go down the stairs around 3 AM. You did try to roll out of bed he was too weak to stand he did not really fall did not strike his head denies any other injuries he says he feels back to his normal baseline initially anytime he moves around he began to get dizzy that is all resolved. He sits up during exam he has no symptoms unable to induce his dizziness. He denies abdominal pain or chest pain no dysuria urgency or frequency no diarrhea no shortness of breath. Associated symptoms: Denies chest pain, chills, dysuria or fever(s) Related Data Home Medications ?Medication ?Instructions ?Recorded ?Confirmed aspirin 81 mg tablet,delayed 81 mg PO QAM 05/10/19 11/02/24 release (Adult Low Dose Aspirin) cholecalciferol (vitamin D3) 25 25 mcg PO DAILY 10/10/22 11/02/24 mcg (1,000 unit) capsule (Vitamin D3) docosahexaenoic acid (dha)-epa 120 1 cap PO DAILY 10/10/22 11/02/24 mg-180 mg capsule (Fish Oil) atorvastatin 40 mg tablet 40 mg PO QPM 10/16/22 11/02/24 insulin lispro 100 unit/mL See Rx Instructions .Route .COMPLEX 06/16/23 11/02/24 subcutaneous pen nitroglycerin 0.4 mg sublingual See Rx Instructions .Route .COMPLEX 07/27/23 11/02/24 tablet carbidopa 25 mg-levodopa 100 mg See Rx Instructions .Route .COMPLEX 03/01/24 11/02/24 tablet furosemide 40 mg tablet 40 mg PO DAILY 05/30/24 11/02/24 lactulose 10 gram/15 mL oral 30 ml PO BID PRN Constipation 09/23/24 11/02/24 solution (Constulose) polyethylene glycol 3350 17 17 g PO DAILY PRN Constipation 09/23/24 11/02/24 gram/dose oral powder (ClearLax) potassium chloride 20 mEq 20 meq PO QAM 09/23/24 11/02/24 tablet,extended release naproxen 500 mg tablet 500 mg PO BID 10/08/24 11/02/24 scopolamine base 1 mg over 3 days 1 patch topical Q3D 10/08/24 11/02/24 transdermal patch tizanidine 4 mg tablet 4 mg PO TID PRN Pain 10/08/24 10/08/24 chlorzoxazone 250 mg tablet 250 mg PO TID PRN muscle spasms 11/02/24 11/02/24 ibuprofen 600 mg tablet 600 mg PO TID PRN Pain 11/02/24 11/02/24 liraglutide 0.6 mg/0.1 mL (18 mg/3 0.6 mg SUBCUT DAILY 11/02/24 11/02/24 mL) subcutaneous pen injector ([employer] 2-Kg) dyoqdiblqqzc-zuqclwab-snpwwi 1 tab PO DAILY 11/02/24 11/02/24 tablet (Multivitamin 50 Plus tablet) olanzapine 5 mg tablet 5 mg PO BEDTIME 11/02/24 11/02/24 Previous Rx's ?Medication ?Instructions ?Recorded clopidogrel 75 mg tablet 75 mg PO DAILY 3 months #90 tabs 11/10/19 metoprolol tartrate 50 mg tablet 50 mg PO BID #180 tabs 11/10/19 finasteride 5 mg tablet 5 mg PO DAILY #90 tabs 10/11/22 tamsulosin 0.4 mg capsule 0.4 mg PO DAILY #90 caps 10/11/22 isosorbide mononitrate 60 mg 60 mg PO DAILY #30 tabs 06/16/23 tablet,extended release 24 hr Allergies Allergy/AdvReac Type Severity Reaction Status Date / Time No Known Allergies Allergy Verified 09/28/24 09:18 Review of Systems Const: Denies: fever(s) or chills Card: Denies: chest pain Resp: Denies: dyspnea GI: Denies: abdominal pain : Denies: dysuria, urinary frequency or urinary urgency Musc: Denies: neck pain or back pain Skin/Breast: Denies: rash PFSH ED PFSH: Medical History CÉSAR (obstructive sleep apnea) Hyperlipidemia HTN (hypertension) ASHD (arteriosclerotic heart disease) Diabetes Hyperglycemia JULIET (acute kidney injury) Elbow contusion Dystonic tremor Acute on chronic renal failure Urinary tract infection Urinary retention Acute renal failure Ophthalmoplegia Parkinson disease Diabetic neuropathy associated with type 2 diabetes mellitus Essential tremor Cough Exposure to COVID-19 virus Chronic diarrhea Diabetic foot ulcer CKD (chronic kidney disease) (~10/12/20) Obesity Myocardial infarction Surgical History S/P eye surgery Status post colonoscopy (12/24/20) sigmoid polyp Status post amputation of toe S/P angioplasty with stent Family History Mother CAD (coronary artery disease) Diabetes Social History Smoking and tobacco/nicotine status: former use of tobacco/nicotine Alcohol intake: former Substance/Drug Use: never Lives independently: Yes Household members: other Details: DOG Marital status: service: No Current occupational status: disabled 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 Physical Exam Const: GENERAL APPEARANCE: cooperative ORIENTATION/CONSCIOUSNESS: Yes awake, Yes oriented to person, Yes oriented to place and Yes oriented to time HENMT: COMMON NORMALS: normocephalic, atraumatic and hearing grossly normal bilaterally HEAD & SCALP: normocephalic and atraumatic Resp: COMMON NORMALS: normal respiratory effort, No retractions, No use of accessory muscles and clear to auscultation bilaterally AUSCULTATION: clear to auscultation bilaterally Cardio: COMMON NORMALS: regular rate, regular rhythm and No murmurs present (Cardio) RATE: regular rate RHYTHM: regular rhythm GI: COMMON NORMALS: Soft to palpation and No hepatosplenomegaly present AUSCULTATION: Yes normoactive bowel sounds PALPATION: Yes Soft to palpation, No Tenderness to palpation present (GI), No Guarding due to palpation present (GI) and Yes No hepatosplenomegaly present Extremity: COMMON NORMALS: normal to inspection, capillary refill normal, no clubbing, cyanosis or edema, no calf tenderness and no pedal edema Neuro: SENSORIUM/ORIENTATION: Yes oriented to person, Yes oriented to place and Yes oriented to time Skin: COMMON NORMALS: no rashes or lesions noted GENERAL SKIN EXAM: no rashes or lesions noted Course Vital Signs: Vital signs: Vital Signs Temperature 98.0 F 11/02/24 08:03 Pulse Rate 76 11/02/24 12:25 Respiratory Rate 16 11/02/24 11:30 Blood Pressure 148/74 11/02/24 12:25 Pulse Oximetry 98 11/02/24 12:25 Oxygen Delivery Me thod Room Air 11/02/24 11:30 MDM - Weakness Medical Decision Making Labs and imaging are unremarkable exam no significant changes. Repeat exam is unremarkable. Will go ahead and discharge him home. He does have some anemia. His hemoglobin is still 10.1 he is not noting any hematochezia melena hematemesis. Have him follow-up with that with his primary care doctor. Medical Records I reviewed the patient's medical records. Lab Data I reviewed the patient's lab results. 11/02/24 08:29 11/02/24 08:29 Radiology Impressions Chest X-Ray 11/02/24 08:13 IMPRESSION: No acute findings. Laboratory Results WBC 7.58 10^3/uL (3.29-11.43) 11/02/24 08:29 RBC 3.49 10^6/uL (3.85-5.65) L 11/02/24 08:29 Hgb 10.10 g/dL (11.27-16.99) L 11/02/24 08:29 Hct 31.1 % (37-53) L 11/02/24 08:29 MCV 89.1 fl (82-101) 11/02/24 08:29 MCH 28.9 pg (27-33) 11/02/24 08:29 MCHC 32.5 g/dL (30-55) 11/02/24 08:29 RDW 13.7 % (12.1-15.1) 11/02/24 08:29 Plt Count 164 10^3/cmm (157-399) 11/02/24 08:29 MPV 10.3 fL (7.4-10.4) 11/02/24 08:29 Neut % (Auto) 72.8 % 11/02/24 08:29 Lymph % (Auto) 13.9 % 11/02/24 08:29 [place] % (Auto) 12.1 % 11/02/24 08:29 Eos % (Auto) 0.4 % 11/02/24 08:29 Baso % (Auto) 0.4 % 11/02/24 08:29 Neut # (Auto) 5.52 10^3/uL (1.8-7.7) 11/02/24 08:29 Lymph # (Auto) 1.1 10^3/uL (0.8-4.8) 11/02/24 08:29 [place] # (Auto) 0.9 10^3/uL (0.2-0.9) 11/02/24 08:29 Eos # (Auto) 0.0 10^3/uL (0.0-0.8) 11/02/24 08:29 Baso # (Auto) 0.0 10^3/uL (0.0-0.1) 11/02/24 08: Nucleated RBC % (auto) 0 % 11/02/24 08: Nucleated RBCs # 0.0 /100WBC 11/02/24 08:29 Sodium 137 mmol/L (136-145) 11/02/24 08:29 Potassium 4.4 mmol/L (3.5-5.1) 11/02/24 08: Chloride 100 mmol/L (98-107) 11/02/24 08: Carbon Dioxide 23 mmol/L (22-29) 11/02/24 08:29 Anion Gap 18.4 (5-19) 11/02/24 08:29 BUN 29 mg/dL (8-23) H 11/02/24 08:29 Creatinine 1.6 mg/dL (0.7-1.2) H 11/02/24 08:29 GFR Calculation 43.1 mL/min (90-130) L 11/02/24 08:29 Glucose 344 mg/dL (65-115) H 11/02/24 08:29 Calculated Osmolality 303 mOsm/kg (285-295) H 11/02/24 08:29 Calcium 8.9 mg/dL (8.5-10.5) 11/02/24 08:29 Total Bilirubin 0.6 mg/dL (0.15-1.2) 11/02/24 08:29 AST 16 U/L (0-40) 11/02/24 08:29 ALT 6 U/L (0-41) 11/02/24 08:29 Alkaline Phosphatase 91 U/L (40-130) 11/02/24 08:29 Troponin T Baseline 41 ng/L (0-15) H 11/02/24 08:29 Troponin T 120 Minute 38.81 ng/L (0-15) H 11/02/24 10:38 Delta Troponin T -2.19 ABS# (0-10) L 11/02/24 10:38 Total Protein 6.3 g/dL (6.6-8.7) L 11/02/24 08:29 Albumin 3.6 g/dL (3.5-5.2) 11/02/24 08:29 Globulin 2.7 g/dL (1.3-4.6) 11/02/24 08:29 Lipase 22 U/L (13-60) 11/02/24 08:29 Serum Ketones Negative (Negative) 11/02/24 08:29 All radiology interpretation(s) finalized by discharge Discharge Plan Discharge Patient Disposition: Home Clinical Impression: Weakness, Anemia Condition: Stable Prescriptions: No Action aspirin [Adult Low Dose Aspirin] 81 mg tablet,delayed release (DR/EC) 81 mg PO QAM atorvastatin 40 mg tablet 40 mg PO QPM clopidogrel 75 mg tablet 75 mg PO DAILY 90 Days Qty: 90 3RF metoprolol tartrate 50 mg tablet 50 mg PO BID Qty: 180 3RF nitroglycerin 0.4 mg tablet, sublingual See Rx Instructions .ROUTE .COMPLEX Rx Instructions: DISSOLVE ONE TABLET UNDER THE TONGUE EVERY 5 MINUTES NEEDED FOR CHEST PAIN. DO NOT EXCEED A TOTAL OF 3 DOSES IN 15 MINUTES - REPORT TO THE EMERGENCY ROOM IF 3 DOSES ARE NEEDED TO CONTROL PAIN furosemide 40 mg tablet 40 mg PO DAILY tizanidine 4 mg tablet 4 mg PO TID PRN (Reason: Pain) scopolamine base 1 mg over 3 days patch 3 day 1 patch topical Q3D naproxen 500 mg tablet 500 mg PO BID cholecalciferol (vitamin D3) [Vitamin D3] 25 mcg (1,000 unit) Capsule 25 mcg PO DAILY Fish Oil 120-180 mg Capsule 1 cap PO DAILY tamsulosin 0.4 mg Capsule 0.4 mg PO DAILY Qty: 90 1RF finasteride 5 mg Tablet 5 mg PO DAILY Qty: 90 3RF insulin lispro 100 unit/mL insulin pen See Rx Instructions .ROUTE .COMPLEX Rx Instructions: TAKE 15 UNITS DAILY. IF BG OVER 200, TAKE 25 UNITS. isosorbide mononitrate 60 mg tablet extended release 24 hr 60 mg PO DAILY Qty: 30 0RF carbidopa-levodopa 25-100 mg tablet See Rx Instructions .ROUTE .COMPLEX Rx Instructions: TAKE 1 TABLET BY MOUTH IN THE MORNING AND 1 TAB AT NOON AND 1 TAB AT 4 IN THE EVENING. polyethylene glycol 3350 [ClearLax] 17 gram/dose powder 17 g PO DAILY PRN (Reason: Constipation) lactulose [Constulose] 10 gram/15 mL solution 30 ml PO BID PRN (Reason: Constipation) potassium chloride 20 mEq tablet extended release 20 meq PO QAM olanzapine 5 mg tablet 5 mg PO BEDTIME chlorzoxazone 250 mg tablet 250 mg PO TID PRN (Reason: muscle spasms) ibuprofen 600 mg Tablet 600 mg PO TID PRN (Reason: Pain) Multivitamin 50 Plus Tablet 1 tab PO DAILY liraglutide [Victoza 2-Kg] 0.6 mg/0.1 mL (18 mg/3 mL) Pen Injector 0.6 mg SUBCUT DAILY Discharge Orders: Discharge ED (Routine); Ordered 11/02/24 Ordered By: Benito Evans Referrals: Roxana James FNP [Primary Care Provider, Unknown] Discharge Diet: Usual diet Discharge Activity: Increase activity as tolerated Patient Instructions: Opioid Safety, Pain Management, Patient Portal & Grazyna Instructions Activity Restrictions/Additional Instructions: Thank you for choosing [facility] for your healthcare needs today. It is very important that you follow up as instructed or that you return to the Emergency Department should you have concerns or if your condition changes or worsens in any way. You were seen in the emergency room with complaint of generally feeling weak. Laboratory test did not show any significant abnormalities and your cardiac enzymes and EKGs were normal. Follow-up with your primary care doctor. Print Language: Serbian Coding Level of Care Code ED Truck Rental Manager for Hugo Garcia
[2024-11-02 08:54] LABS: Ketone (Acetest) Serum Negative (Negative)
[2024-11-02 09:02] LABS: Alanine Aminotransferase 6 U/L (0-41); Albumin Level 3.6 g/dL (3.5-5.2); Alkaline Phosphatase 91 U/L (40-130); Anion Gap 18.4 (5-19); Aspartate Amino Transferase 16 U/L (0-40); Blood Urea Nitrogen 29 mg/dL (8-23); Calcium 8.9 mg/dL (8.5-10.5); Carbon Dioxide 23 mmol/L (22-29); Chloride 100 mmol/L (98-107); Creatinine Clr Calc Pharmacy 50.3422; Globulin 2.7 g/dL (1.3-4.6); Glucose 344 mg/dL (65-115); Lipase 22 U/L (13-60); Osmolality Calculated 303 mOsm/kg (285-295); Potassium 4.4 mmol/L (3.5-5.1); Sodium 137 mmol/L (136-145); Total Protein 6.3 g/dL (6.6-8.7); Troponin(5th) Baseline 41 ng/L (0-15)
--- NOTE | 2024-11-02 10:13 | ECG_ITS ---
[facility] Test Date: 2024-11-02 Pat Name: Yaya Astudillo Department: Room: Gender: Male Internet Manager: : 1955 Requested By: Benito Rodríguez Order Number: [id number] MD: Harvey Martins M.D. Measurements Intervals [place] Rate: 78 P: 51 IA: 209 QRS: -38 QRSD: 85 T: 52 QT: 380 QTc: 434 Interpretive Statements SINUS RHYTHM LEFT AXIS DEVIATION [QRS AXIS < -30] POSSIBLE RIGHT VENTRICULAR CONDUCTION DELAY [RSR (QR) IN V1/V2] ANTEROSEPTAL MYOCARDIAL INFARCTION , OF INDETERMINATE AGE [40+ ms Q WAVE IN V1-V4] Compared to ECG 11/02/2024 08:06:28 No significant changes Electronically Signed On 11-03-2024 09:11:52 CDT by Harvey Martins M.D. [email or web address]
--- NOTE | 2024-11-02 10:49 | PC.PHAR ---
Pt is now a client of [facility] [phone] 11/02/24. Faxing current med list 10:50am
[2024-11-02 11:15] LABS: Troponin 5 2HR 38.81 ng/L (0-15)
[2024-11-02 11:17] LABS: Troponin 5 2HR Delta -2.19 ABS# (0-10)
[2024-11-02 11:30] VITALS: BP 132/65; PULSE 69; RESP 16; O2SAT 95
[2024-11-02 12:25] VITALS: BP 148/74; PULSE 76; O2SAT 98
== END 2024-11-02 12:25 | disposition home or self-care (01) ==
PROVIDERS: Emergency Provider Family Medicine; PCP Nurse Practitioner Family
DX: R53.1 Weakness (principal); D64.9 Anemia, unspecified; Z79.82 Long term (current) use of aspirin; Z79.02 Long term (current) use of antithrombotics/antiplatelets; Z79.4 Long term (current) use of insulin; Z87.891 Personal history of nicotine dependence; E78.5 Hyperlipidemia, unspecified; E11.22 Type 2 diabetes mellitus with diabetic chronic kidney disease; I12.9 Hypertensive chronic kidney disease with stage 1 through stage 4 chronic kidney disease, or unspecified chronic kidney disease; E11.40 Type 2 diabetes mellitus with diabetic neuropathy, unspecified; N18.9 Chronic kidney disease, unspecified
CPT/HCPCS: 36415; 71045; 80053; 82009; 83690; 84484; 85025; 93005; 99285; J7030

== ENCOUNTER 2024-11-10 10:32 | Day surgery (SDC) | payer MEDICARE, MEDICAID, SELFPAY ==
[2024-11-10] VITALS (11 sets, daily range): BP systolic 138–168; BP diastolic 54–88; PULSE 71–79; RESP 14–23; TEMP 36.2–36.7; O2SAT 4–100; BMI 33.4
--- NOTE | 2024-11-10 11:35 | W.PM.OPSFHP ---
Same Day Surgery H&P Indication for Procedure/HPI DATE OF PROCEDURE: November 10, 2024 CHIEF COMPLAINT/INDICATIONFOR SURGICAL PROCEDURE: Right carpal tunnel syndrome, right cubital tunnel syndrome, right Guyon canal entrapment PREOP DIAGNOSIS: Right carpal tunnel syndrome, right cubital tunnel syndrome, right Guyon ca PLANNED PROCEDURE: Operation Date: 11/10/24 13:30 Proposed Procedures p RIGHT Carpal Tunnel Release(Right) - Joe Nash, DO s RIGHT Guyon Canal Release(Right) - Joe Sree, DO s POSSIBLE Ulnar Nerve Transposition(Right) - Joe Mastersonatt, DO Medications/Allergies* Home Medications ?Medication ?Instructions ?Recorded ?Confirmed ?Type aspirin 81 mg tablet,delayed 81 mg PO QAM 05/10/19 11/10/24 History release (Adult Low Dose Aspirin) cholecalciferol (vitamin D3) 25 25 mcg PO DAILY 10/10/22 11/10/24 History mcg (1,000 unit) capsule (Vitamin D3) atorvastatin 40 mg tablet 40 mg PO QPM 10/16/22 11/10/24 History insulin lispro 100 unit/mL See Rx Instructions .Route .COMPLEX 06/16/23 11/10/24 History subcutaneous pen (Humalog KwikPen (U-100) Insulin) nitroglycerin 0.4 mg sublingual See Rx Instructions .Route .COMPLEX 07/27/23 11/10/24 History tablet carbidopa 25 mg-levodopa 100 mg 1 tab PO TID 03/01/24 11/10/24 History tablet furosemide 40 mg tablet 40 mg PO DAILY 05/30/24 11/10/24 History lactulose 10 gram/15 mL oral 30 ml PO BID PRN Constipation 09/23/24 11/10/24 History solution (Constulose) polyethylene glycol 3350 17 17 g PO DAILY PRN Constipation 09/23/24 11/10/24 History gram/dose oral powder (ClearLax) naproxen 500 mg tablet 500 mg PO BID 10/08/24 11/10/24 History scopolamine base 1 mg over 3 days 1 patch topical Q3D 10/08/24 11/10/24 History transdermal patch tizanidine 4 mg tablet 4 mg PO TID PRN Pain 10/08/24 11/10/24 History chlorzoxazone 250 mg tablet 250 mg PO TID PRN muscle spasms 11/02/24 11/10/24 History ibuprofen 600 mg tablet 600 mg PO TID PRN Pain 11/02/24 11/10/24 History qvtgmtgteocs-nciaybym-pwdmvr 1 tab PO DAILY 11/02/24 11/10/24 History tablet (Multivitamin 50 Plus tablet) olanzapine 5 mg tablet 5 mg PO BEDTIME 11/02/24 11/02/24 History insulin glargine 100 unit/mL (3 85 unit SUBCUT BID 11/09/24 11/09/24 History mL) subcutaneous pen (Lantus Solostar U-100 Insulin) clopidogrel 75 mg tablet 75 mg PO 1XD 11/10/24 11/10/24 History Allergies/Adverse Reactions Allergy/AdvReac Type Severity Reaction Status Date / Time No Known Allergies Allergy Verified 11/09/24 12:54 Pertinent History/Comorbid Conditions* Medical History (Updated 11/10/24 @ 00:00 by RODGER Topete) CÉSAR (obstructive sleep apnea) Hyperlipidemia HTN (hypertension) ASHD (arteriosclerotic heart disease) Diabetes Hyperglycemia JULIET (acute kidney injury) Elbow contusion Dystonic tremor Acute on chronic renal failure Urinary tract infection Urinary retention Acute renal failure Ophthalmoplegia Parkinson disease Diabetic neuropathy associated with type 2 diabetes mellitus Essential tremor Cough Exposure to COVID-19 virus Chronic diarrhea Diabetic foot ulcer CKD (chronic kidney disease) (~10/12/20) Obesity Myocardial infarction Surgical History (Updated 12/24/20 @ 08:26 by Prashant Haynes MD) S/P eye surgery Status post colonoscopy (12/24/20) sigmoid polyp Status post amputation of toe S/P angioplasty with stent Family History (Updated 05/10/19 @ 12:26 by Jaye Hale RN) Diabetes Mother CAD (coronary artery disease) Mother Social History Smoking and tobacco/nicotine status: former use of tobacco/nicotine Alcohol intake: former Substance/Drug Use: never Lives independently: Yes Household members: other Details: DOG Marital status: service: No Current occupational status: disabled 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 Patient does have appreciable atrophy in the intrinsics with intrinsic wasting noted as well as thenar atrophy appreciated preoperatively. Please refer to detailed examination listed below from 09/28/2024: Bilateral Upper Extremity Exam: Normal C-spine ROM, No pain. Negative Spurlings Negative Tinel's @ shoulder. Normal ROM Positive Tinel's@ elbows, bilateral. Normal ROM Positive Tinel's @ Guyon's canal Positive median compression test right wrist Positive Tinel's right wrist carpal Positive Phalen's Thenar weakness Intrinsic atrophy and weakness, right Subtle intrinsic atrophy on left Recommendations Risks and benefits of procedure reviewed and Patient/family agree to proceed Surgery/Procedure today Other Plans: Plan to proceed to the OR today for right carpal tunnel release, right Guyon's canal release, right cubital tunnel release with possible nerve transposition. We talked about the procedure as far as the ins and outs procedure the risk the benefits complications alternatives of surgery as well as the postoperative coverage course. Understanding risk for surgery patient like to proceed with surgical intervention. All questions have been answered at this time. Will proceed to the OR today. Coding Level of Care Code Acute Code for g Fwjoselo
[2024-11-10] MEDS: acetaminophen 1,000 MG/100 ML PIGGYBACK 400 MG IV (11:59)
--- NOTE | 2024-11-10 12:21 | ANES.PREANE2 ---
Pre-Anesthetic Assessment Height/Weight: Height 5 ft 8 in Weight 220 lb Temp Pulse Resp BP Pulse Ox O2 Del Method 98.0 F 72 18 166/78 96 Room Air 11/10/24 11:37 11/10/24 11:37 11/10/24 11:37 11/10/24 11:37 11/10/24 11:37 11/10/24 11:37 Preop Diagnosis: Right carpal tunnel syndrome, right cubital tunnel syndrome, right Guyon ca Operation Date: 11/10/24 13:30 Proposed Procedures p RIGHT Carpal Tunnel Release(Right) - Joe [place], DO s RIGHT [place] Canal Release(Right) - Joe [place], DO s POSSIBLE Ulnar Nerve Transposition(Right) - Joe Sree, DO Was Beta Christian taken within 24 hours: Yes Was Clonidine taken within 24 hours: N/A Last intake: Intake Last Liquid Date 11/09/24 Last Liquid Time 23:30 Last Solid Date 11/09/24 Last Solid Time 16:00 Social No alcohol and No tobacco Exam alert, oriented x 3, clear to auscultation bilaterally and regular rate & rhythm Airway Submandibular: within normal limits Cervical ROM: within normal limits Mallampati: Class III Comments: Comments: Large neck, edentulous Anesthetic Plan ASA status: 3 Anesthesia: General Other: No prior issues with anesthesia NPO since yesterday evening History of hypertension on metoprolol CVA history, s/p PCI. Most recent 2 years ago Plavix last taken 11/09/2024 carbidopa-levodopa CÉSAR no tx Recent labs reviewed and acceptable for procedure Plan for general anesthesia Medications/Allergies Home Medications ?Medication ?Instructions ?Recorded ?Confirmed ?Last Taken ?Type aspirin 81 mg tablet,delayed 81 mg PO QAM 05/10/19 11/10/24 11/09/24 History release (Adult Low Dose Aspirin) metoprolol tartrate 50 mg tablet 50 mg PO BID #180 tabs 11/10/19 11/10/24 11/09/24 08:00 Rx cholecalciferol (vitamin D3) 25 25 mcg PO DAILY 10/10/22 11/10/24 11/09/24 History mcg (1,000 unit) capsule (Vitamin D3) finasteride 5 mg tablet 5 mg PO DAILY #90 tabs 10/11/22 11/10/24 11/09/24 Rx atorvastatin 40 mg tablet 40 mg PO QPM 10/16/22 11/10/24 11/09/24 History insulin lispro 100 unit/mL See Rx Instructions .Route .COMPLEX 06/16/23 11/10/24 11/09/24 08:00 History subcutaneous pen (Humalog KwikPen (U-100) Insulin) isosorbide mononitrate 60 mg 60 mg PO DAILY #30 tabs 06/16/23 11/10/24 11/09/24 Rx tablet,extended release 24 hr nitroglycerin 0.4 mg sublingual See Rx Instructions .Route .COMPLEX 07/27/23 11/10/24 2 Months Ago History tablet ~09/09/24 carbidopa 25 mg-levodopa 100 mg 1 tab PO TID 03/01/24 11/10/24 11/09/24 History tablet furosemide 40 mg tablet 40 mg PO DAILY 05/30/24 11/10/24 11/09/24 History lactulose 10 gram/15 mL oral 30 ml PO BID PRN Constipation 09/23/24 11/10/24 11/09/24 History solution (Constulose) polyethylene glycol 3350 17 17 g PO DAILY PRN Constipation 09/23/24 11/10/24 Unknown History gram/dose oral powder (ClearLax) naproxen 500 mg tablet 500 mg PO BID 10/08/24 11/10/24 11/09/24 History scopolamine base 1 mg over 3 days 1 patch topical Q3D 10/08/24 11/10/24 11/01/24 History transdermal patch tizanidine 4 mg tablet 4 mg PO TID PRN Pain 10/08/24 11/10/24 2 Weeks Ago History ~10/26/24 chlorzoxazone 250 mg tablet 250 mg PO TID PRN muscle spasms 11/02/24 11/10/24 11/09/24 History ibuprofen 600 mg tablet 600 mg PO TID PRN Pain 11/02/24 11/10/24 Unknown History jvafzafbxlye-groteuev-dieomo 1 tab PO DAILY 11/02/24 11/10/24 11/02/24 History tablet (Multivitamin 50 Plus tablet) olanzapine 5 mg tablet 5 mg PO BEDTIME 11/02/24 11/02/24 11/08/24 History insulin glargine 100 unit/mL (3 85 unit SUBCUT BID 11/09/24 11/09/24 11/09/24 History mL) subcutaneous pen (Lantus Solostar U-100 Insulin) clopidogrel 75 mg tablet 75 mg PO 1XD 11/10/24 11/10/24 11/09/24 History hydrocodone 5 mg-acetaminophen 325 1 tab PO Q6H PRN pain 5 days #20 11/10/24 Unknown Rx mg tablet tabs Allergies Allergy/AdvReac Type Severity Reaction Status Date / Time No Known Allergies Allergy Verified 11/09/24 12:54 Current Medications Generic Name Dose Route Start Last Admin Trade Name Freq PRN Reason Stop Dose Admin Sodium Chloride 1,000 mls @ 30 mls/hr 11/10/24 11:45 11/10/24 12:08 Sodium Chloride 0.9% IV 11/11/24 11:44 30 mls/hr .Q24H RENEE Administration PFSH Anesthesia Medical History (Updated 11/10/24 @ 00:00 by RODGER Topete) CÉSAR (obstructive sleep apnea) Hyperlipidemia HTN (hypertension) ASHD (arteriosclerotic heart disease) Diabetes Hyperglycemia JULIET (acute kidney injury) Elbow contusion Dystonic tremor Acute on chronic renal failure Urinary tract infection Urinary retention Acute renal failure Ophthalmoplegia Parkinson disease Diabetic neuropathy associated with type 2 diabetes mellitus Essential tremor Cough Exposure to COVID-19 virus Chronic diarrhea Diabetic foot ulcer CKD (chronic kidney disease) (~10/12/20) Obesity Myocardial infarction Surgical History S/P eye surgery Status post colonoscopy (12/24/20) sigmoid polyp Status post amputation of toe S/P angioplasty with stent Family History Mother CAD (coronary artery disease) Diabetes Social History Smoking and tobacco/nicotine status: former use of tobacco/nicotine Alcohol intake: former Substance/Drug Use: never Lives independently: Yes Household members: other Details: DOG Marital status: service: No Current occupational status: disabled 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
[2024-11-10] MEDS: ceFAZolin 2,000 MG in sodium chloride 0.9% (plus) 50 ML 100 MG IV (13:05)
[2024-11-10] MEDS: ROPivacaine 0.5% SDV 30 mL 50 MG INJECTION (13:51)
[2024-11-10] MEDS: lidocaine-epi 1% 20 mL INJ 10 ML INJECTION (13:51)
--- NOTE | 2024-11-10 14:13 | P.BOP_ITS ---
Date of Procedure: 11/10/2024 Surgeon: Joe Balbuena DO Cardiac Catheterization Technologist(s): Servando Balbuena PA-C Procedure(s) performed: Right carpal tunnel release Right Guyon's canal release (ulnar nerve decompression at the wrist) Right cubital tunnel release (ulnar nerve decompression at the elbow) Findings of the procedure(s): Patient underwent procedure as planned without issues or complications . Estimated blood loss: 5 mL Specimen(s) removed: None Post-operative diagnosis: Right carpal tunnel syndrome, right Guyon canal ulnar nerve entrapment at the wrist, right cubital tunnel syndrome
--- NOTE | 2024-11-10 14:14 | P.OP_ITS ---
Operative Report Date of procedure: November 10, 2024 Surgeon: Joe Balbuena DO Lead Front End Developer: Servando Balbuena PA-C: PA was necessary for assistance in this case with hand positioning to execute the procedure, retraction and protection of neurovascular structures as well as to assist with wound closure and dressing application. Procedure: Procedure: Preoperative diagnosis? Right? 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 33 minutes IV fluids: 700mL Complications: None Findings: See operative report narrative Condition: stable Disposition: same day Brief History: Patient's been seen and worked up in the outpatient setting and findings consistent with preoperative diagnosis.? Patient has? Right Carpal Tunnel Syndrome,Right ulnar entrapment at?guyons?canal, Right cubital tunnel syndrome? which has been worked up in the outpatient setting has physical exam findings consistent with this.? Patient's nerve study consistent with this.? Exam findings consistent with preoperative diagnosis.? Patient's failed conservative treatment.? As result through shared decision making agreed to proceed with Right carpal tunnel release , Right ulnar nerve release at the wrist (guyons canal) and Right cubital tunnel release with possible ulnar nerve transposition. We talked about tx options as nonoperative and operative intervention.? Understands risk benefits complication alternatives surgical nonsurgical treatment options.? Understanding? risks pt agrees to proceed with surgical intervention. Understanding these risks pt agrees to proceed with surgery.? Consent obtained in preop area. Procedure: Patient seen evaluate in the preoperative holding area.? Consent was reviewed and signed with patient.? Correct extremity marked.? Patient seen evaluated by anesthesia department once cleared for surgery was then taken back to the operative suite placed in supine position all bony prominences well-padded patient properly secured to bed.? Right upper extremity placed onto armboard.? Nonsterile tourniquet applied Right upper arm. Of note patient had significant Shoulder Stiffness Unable to Allow His Arm to Fully Lie at the Side We placed in the patient's arm on a Chacon stand perform procedure standing up to help accommodate for patient's positioning given his shoulder stiffness. Patient then underwent anesthesia per the anesthesia department.? Patient's Right upper extremity was then prepped and draped in standard orthopedic fashion.? Final timeout performed.? Patient received appropriate preoperative antibiotics. Esmarch was used exsanguinate the Right upper extremity.? Tourniquet was insufflated to 250 mmHg. I started with my release of the ulnar nerve at the wrist.? An extensive laterally based palmar incision that extended proximal past the wrist crease with a Patricia incision was made directly over?Guyon's canal.? At this point in time incision was made between the Pisa form and hamate to follow neurovascular bundle of?Guyon's canal.? sharp scalpel incision was subsequently made through skin and then I switched to Littler dissection scissors.? At this point in time I dissected down over top?guyons?canal release the brevis muscle belly along the hypothenar region to obtain access into?Guyon's canal.? Thick band of fascia was noted proximally just proximal to the wrist crease this was released and made sure there was complete decompression of the ulnar nerve proximally just prior to?Guyon's canal subsequently released?guyon?canal and direct visualization with sharp scalpel excision as well as Littler dissection scissors with care utilizing my customer support assistant to protect the neurovascular bundle.? At this point in time I continued to perform release of the fascia/the roof of?Guyon's canal all the way to its most distal extent and until the nerve was completely free and untethered.? I then in order to perform release of the deep motor branch I then mobilized my dissection around the ulnar nerve and identified the deep motor branch as it courses towards the underneath fascia connected with the hamate.? I then utilized dissection scissors and under direct visualization completed my release carefully of the fascial bands tethering over top of the deep motor branch.? At this point in time the ulnar nerve was completely decompressed through?Guyon's canal and? ulnar nerve had complete laxity with no areas of entrapment or tethering. No masses were noted within the contents of the?guyons?canal.? This completed the ulnar nerve release at the wrist. Next I then subsequently visualized from the ulnar aspect of the carpal tunnel.? Identified the distal extent as well as proximal extent into the antebrachial fascia.? As result approaching the carpal tunnel from the ulnar position just above the hook of the hamate made an incision through thickened Transverse carpal ligament.? It was noted there was significant entrapment of the median nerve.? I then switched to Littler dissection scissors to complete my dissection and release distally with care to protect neurovascular structures distally.? The tendons were healthy within the carpal tunnel.? No masses were noted.? I then carried my dissection proximally utilizing retraction by my customer support assistant as well as direct visualization with loupe magnification identify the proximal extent of the carpal tunnel and release this to its entirety as well as identified the median nerve and released the tethering of the antebrachial fascia proximally past the wrist crease into the distal aspect of the forearm with no further evidence of median nerve entrapment.? The median nerve overall showed signs of compression and inflammation irritation but overall appeared healthy.?? Next marked out the landmarks of the Right elbow of the medial epicondyle and olecranon and made a curvilinear incision following the course of the ulnar nerve at the medial aspect of the elbow.? Sharp scalpel incision was made through skin and subcutaneous tissue.? Next I switched to Littler dissection scissors and spread in plane of the medial antebrachial cutaneous nerve branching which was protected throughout this part of the dissection.? Then I directly came down over the fascia and identified the 2 heads of the FCU fascia and split this Right in the middle and subsequently identified my ulnar nerve distally.? This was then completely released distally under direct visualization and loupe magnification.? Once the nerve was then identified I then subsequently tracked this proximally and released this through Woods's ligament as well as complete decompression of the nerve proximally all the way past the intermuscular septum.? The nerve was completely released and decompressed both proximally and distally.? Ulnar nerve neurolysis performed and completed both proximally and distally with dissection scissors.? I then took the elbow through range of motion and there was no instability or subluxating of the ulnar nerve.? This completed?cubital?tunnel release.? ?Next the wound bed was thoroughly irrigated.? Tourniquet was deflated.? Hemostasis was satisfactory.? ?The incision was then closed in standard interrupted mattress fashion.? Dressing was Xeroform 4 x 4's ABD Curlex soft roll and an Geovanny wrap has a bulky soft dressing and volar splint.? Patient was then awakened from anesthesia and taken to PACU in stable condition. Disposition: Patient taken to PACU in stable condition recovering well.? Patient will receive appropriate discharge instructions as well as pain medication postoperatively.? We will follow-up with me in the office in 2 weeks.? Patient understands agrees with current plan.? All questions answered.? pt understands if any questions or concerns and contact the office for follow-up appointment..
--- NOTE | 2024-11-10 14:51 | PM.PACU ---
PACU note Narrative: Patient is a 69-year-old male just underwent a right carpal tunnel in canal release and right cubital tunnel release. Patient transferred to PACU in stable condition. Pain is well controlled. Dressing and splint on hand is dry and in place. Patient's fingers are warm and well-perfused. Patient can wiggle fingers. normal cap refill under 2 seconds. Patient has normal elbow range of motion. Sensation to fingers intact. Exam: somnolent, arousable Disposition: discharged
--- NOTE | 2024-11-10 16:38 | ANE.PACU2 ---
Inpatient post-anesthesia follow up: Airway intact: Yes Vital signs: Temperature 97.9 F Pulse Rate 79 Respiratory Rate 16 Blood Pressure 151/88 Pulse Oximetry 96 Oxygen Delivery Me thod Room Air Oxygen Flow Rate 8 Fraction of Inspir ed Oxygen Hydration adequate: Yes Nausea and vomiting: No Pain level: 2 Mental status: Baseline
== END 2024-11-10 16:38 | disposition home or self-care (01) ==
PROVIDERS: PCP Nurse Practitioner Family; Visit Provider Student in an Organized Health Care Education/Training Program
PROC: (CPT 64721; principal; 2024-11-10 13:30)
PROC: (CPT 64719; 2024-11-10 13:30)
PROC: (CPT 64718; 2024-11-10 13:30)
DX: G56.01 Carpal tunnel syndrome, right upper limb (principal); G56.21 Lesion of ulnar nerve, right upper limb; Z79.82 Long term (current) use of aspirin; Z79.4 Long term (current) use of insulin; G47.33 Obstructive sleep apnea (adult) (pediatric); E78.5 Hyperlipidemia, unspecified; I25.10 Atherosclerotic heart disease of native coronary artery without angina pectoris; E11.65 Type 2 diabetes mellitus with hyperglycemia; N17.9 Acute kidney failure, unspecified; N39.0 Urinary tract infection, site not specified; G20.A1 Parkinson's disease without dyskinesia, without mention of fluctuations; E11.40 Type 2 diabetes mellitus with diabetic neuropathy, unspecified; E11.22 Type 2 diabetes mellitus with diabetic chronic kidney disease; I12.9 Hypertensive chronic kidney disease with stage 1 through stage 4 chronic kidney disease, or unspecified chronic kidney disease; N18.9 Chronic kidney disease, unspecified; E66.9 Obesity, unspecified; Z68.33 Body mass index [BMI] 33.0-33.9, adult; I25.2 Old myocardial infarction; Z79.02 Long term (current) use of antithrombotics/antiplatelets
CPT/HCPCS: 64718; 64721; 36416; 82962; J0131; J0690; J1100; J2371; J2405; J2704; J2795; J3010; J7030; J9999

== ENCOUNTER 2024-11-19 00:59 | Inpatient (IN) | payer MEDICARE, MEDICAID, SELFPAY ==
--- OUTSIDE RECORDS SUMMARY | 2023-07-28 11:00 | XMS_ITS ---
Author Organization [facility] Address [address] [facility] [place] [address] Care Team Providers Care Flight Steward Name Role Phone Roxana James APRN Primary Care Provider EFRAIN Garcia Unavailable [phone] ZAHIRA DYE Unavailable [phone] REASON FOR VISIT 6 mo w/ ua/pvr Encounters Encounter Location Date Provider Diagnosis [facility], [facility] [address] [place] [facility] [place] [address] 07/28/2023 EFRAIN MATOS Plan Of Treatment Next Appt Details Provider Name:EFRAIN MATOS, 0 11/09/2025 02:30:00 PM, [address] [facility] [place], [address], Progress Notes * Yaya ASTUDILLODOB: (69 yo M)Acc No.[id number]:07/28/2023 Progress Notes Patient: Yaya MARY Provider: Charlie Matos APRN-WORKERS COMPENSATION CLAIMS EXAMINER :1955 A ge:67 Y S ex:Male Date:07/28/2023 Address:[address] [place] [phone] Pcp:Roxana James APRN Subjective: * Chief Complaints: * 1 . 6 mo w/ ua/pvr. * Medical History: Objective: * Vitals: Assessment: Plan: * Treatment: * Billing Information: * Visit Code: * Procedure Codes: * Electronic signature of EFRAIN MATOS APRN on 11/19/2024 at 01:17 AM CDT Sign off status: Pending * Provider: MEENAKSHI Hernandes Date: 0 07/28/2023 Generated for Yenifer jimenez/Adam on: 0 11/19/2024 01:17 AM CDT
[2024-11-19] VITALS (40 sets, daily range): BP systolic 124–200; BP diastolic 53–113; PULSE 67–101; RESP 10–26; TEMP 36.7–39.2; O2SAT 90–99; BMI 30.4; BMI 33.7
--- OUTSIDE RECORDS SUMMARY | 2024-11-19 01:17 | XMS_ITS | Encounter Summary ---
Author Organization [employer] [employer] Address [address] [place] [address] Phone Care Team Providers Care Paraprofessional Aide Teacher Name Role Phone Roxana James Primary Care Provider [phone] Encounter Details Date Type Department Care Team (Late st Contact Info) Description 03/03/2019 Orders Only [facility] [address] [place] [address] Anton Nguyen, JEANETTE Chronic kidney [...] (HCC) documented in this encounter Care Teams Paraprofessional Aide Teacher Relationship Specialty Start Date End Date Roxana James FNP [address] [place] [id number] PCP - General Nurse Practitioner 11/13/21 documented as of this encounter
--- OUTSIDE RECORDS SUMMARY | 2024-11-19 01:17 | XMS_ITS | Encounter Summary ---
Author Organization [facility] Address [address] [place] [address] Care Team Providers Care Car Unloader Name Role Phone Adolph Pal MD Primary Care Provider [phone] Reason for Referral * Radiology Services (Urgent) - Closed Specialty Diagnoses / Procedures Referred By Contac t Referred To Contact Radiology Diagnoses Stage 3a chronic kidney disease (CMS/HCC) Procedures US RENAL AND BLADDER US RENAL Teri Dunham NP [address] [place] [address] Phone: tel: fax: [facility] [address] [place] [address] Phone: tel: fax: Referral ID Status Reason Start Date Expiration Date Visits Re quested Visits Authorized [id number] Closed 05/23/2020 06/23/2021 1 1 ICITY EXPERT Encounter Details Date Type Department Care Team (Late st Contact Info) Description 05/23/2020 Ancillary Orders [facility] Centralized Scheduling [address] [facility] [address] [place] [address] Teri Dunham NP [address] [place] [address] Stage 3a chronic kidney disease [...] on file Legal Sex Male 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 No / Unsure 05/23/2020 4:17 PM PUBLICITY EXPERT documented as of this encounter Plan of Treatment Not on file documented as of this encounter Results * US RENAL AND BLADDER (05/25/2020 9:00 AM PUBLICITY EXPERT) Anatomical Region Laterality Modality Abdomen Ultrasound 05/25/2020 9:00 AM PUBLICITY EXPERT Impressions 05/25/2020 10:00 PM PUBLICITY EXPERT IMPRESSION: No significant ultrasound abnormality noted. [id number] Narrative 05/25/2020 10:00 PM PUBLICITY EXPERT Exam: US RENAL AND BLADDER Date/Time of [...] unremarkable. IMPRESSION: No significant ultrasound abnormality noted. [id number] us Teri Dunham RETAIL EXPERIENCE SPECIALIST US ORDERABLES Anupama dylan Result documented in this encounter Visit Diagnoses Diagnosis Stage 3a chronic kidney disease (CMS/HCC) Stage 3a chronic kidney disease (CMS/HCC) documented in this encounter Care Teams Car Unloader Relationship Specialty Start Date End Date Adolph Pal MD [address] [place] [address] PCP - General Pediatrics 05/25/20 documented as of this encounter
--- OUTSIDE RECORDS SUMMARY | 2024-11-19 01:17 | XMS_ITS | Clinical Summary ---
Author Organization [facility] Address [address] [place] [address] Care Team Providers Care Radio Sales Account Executive Name Role Phone Adolph Pal MD Primary Care Provider [phone] Allergies No known active allergies Medications aspirin [...] E11.9, . 100 Each 6 Active Insulin [place], Disposable, (BD INSULIN PEN NEEDLE UF MINI) 31 gauge x 3/16 Needle DX:code E11.9. 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 Gender Identity Not on file Sexual Orientation Not on file Occupation Industry Job Start Date Job End Date Not on file Not on file Not on file Not on file Last Filed Vital Signs Vital Sign Reading Time Taken Comments Blood Pressure 109/58 06/17/2017 12:00 PM DIRECTOR ENGINEERING Pulse 78 06/17/2017 12:00 PM DIRECTOR ENGINEERING Temperature 36.6 C (97.8 F) 06/17/2017 10:27 AM DIRECTOR ENGINEERING Respiratory Rate 20 06/17/2017 12:00 PM DIRECTOR ENGINEERING Oxygen Saturation 96% 06/17/2017 12:00 PM DIRECTOR ENGINEERING Inhaled Oxygen Concentration - - Weight 101.6 kg (224 lb) 06/17/2017 8:08 AM DIRECTOR ENGINEERING Height 172.7 cm (5' 8 ) 06/17/2017 8:08 AM DIRECTOR ENGINEERING Body Mass Index 34.06 06/17/2017 8:08 AM DIRECTOR ENGINEERING Plan of Treatment Health Maintenance Due Date [...] (#1) 2024 Medical Devices Implanted Type Area Parking Lot Chauffeur Device Identifier Shelf Expiration Date Model / Serial / Lot Lens Io Bi-Aspheric Softechd+19.50 - [id number] Implanted:Qty: 1 on 04/01/2017 by Lev Todd MD at [facility] Eye Right: Eye [employer] 02/26/2021 SOFTECHD+19 .50 / [id number] / Lens Io Bi-Aspheric Softechd+19.50 - [id number] Implanted:Qty: 1 on 06/17/2017 by Lev Todd MD at [facility] Eye Left: Eye [employer] 11/19/2021 SOFTECHD+19 .50 / [id number] / Procedures Procedure Name Priority Date/Time Associated Diagnosis Comments HEMOGLOBIN A1C Routine 12/04/2015 9:39 AM CDT Type 2 diabetes mellitus without complication (CMS/HCC) MICROALBUMIN/CREATI NINE RATIO, RANDOM UR Routine 09/03/2015 9:40 AM CDT Type 2 diabetes mellitus without complication (CMS/HCC) ST elevation myocardial infarction (STEMI), unspecified artery (CMS/HCC) 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 ([facility]) LIPID PANEL Routine 09/03/2015 9:40 AM CDT Type 2 diabetes mellitus without complication ([facility]) ST elevation myocardial infarction (STEMI), unspecified artery ([facility]) Essential hypertension Mixed hyperlipidemia from Last 3 Months or Most Recently Relevant to Health Maintenance Results * (ABNORMAL) HEMOGLOBIN A1C (12/04/2015 9:39 AM CDT) HEMOGLOBIN A1C 11.7(H) 4.0 - 6.0 % 12/05/2015 9:15 AM CDT [facility] EST. AVG GLUCOSE, A1C 289 mg/dL 12/05/2015 9:15 AM CDT [facility] Blood Collection / Unknown 12/04/2015 9:39 AM CDT 12/04/2015 8:20 PM CDT Narrative [facility] - 12/05/2015 9:15 AM CDT Falsely low A1C measurements can occur when: 1. Anemia and/or hemolytic anemia is present. 2. Hemoglobin variants present. 3. Renal failure. 4. Transfusion of blood product in the last 120 days. We recommend ordering a fructosamine test([id number]) to more accurately assess glycemic status if any of the above conditions are present. Amy Valenzuela APRN CHEMISTRY ORDERAB LES Final Result [facility] CLIA# [id number] [address] [place] [address] * MICROALBUMIN/CREATININE RATIO, RANDOM UR (09/03/2015 9:40 AM CDT) MICROALBUMIN, URINE 5.7 mg/dL 09/03/2015 9:23 PM CDT [facility] CREATININE, URINE 89.7 40.0 - 278.0 mg/dL 09/03/2015 9:23 PM CDT [facility] Comment: Reference Range varies with fluid intake and diet. MICROALBUMIN/CR EAT RATIO, UR 63.5 mg/g Creatinine 09/03/2015 9:23 PM CDT [facility] Comment: Condition mg/g Creatinine Normal Males <17 Normal Females <25 Microalbuminuria Males 17-299 Microalbuminuria Females 25-299 Overt proteinuria >=300 Urine URINE SPECIMEN OBTAINED BY CLEAN CATCH PROCEDURE / Unknown Collection / Unknown 09/03/2015 9:40 AM CDT 09/03/2015 8:36 PM CDT Amy Valenzuela FRAMING MILL SUPERVISOR URINE ORDERABLES Final Result [facility] CLIA# [id number] [address] [place] [address] * (ABNORMAL) LIPID PANEL (09/03/2015 9:40 AM CDT) CHOLESTEROL 140 <200 mg/dL 09/03/2015 9:38 PM CDT [facility] TRIGLYCERIDE 177(H) <150 mg/dL 09/03/2015 9:38 PM CDT [facility] HDL 21(L) 40 - 59 mg/dL 09/03/2015 9:38 PM CDT [facility] LDL CALCULATED 84 <100 mg/dL 09/03/2015 9:38 PM CDT [facility] NON-HDL CHOLESTEROL 119 <130 mg/dL 09/03/2015 9:38 PM CDT [facility] Blood Collection / Unknown 09/03/2015 9:40 AM CDT 09/03/2015 8:38 PM CDT Narrative [facility] - 09/03/2015 [...] >=220 Based on AHA/NCEP Guidelines Amy Valenzuela FRAMING MILL SUPERVISOR CHEMISTRY ORDERAB LES Final Result [facility] CLIA# [id number] [address] [place] [address] from Last 3 Months or Most Recently Relevant to Health Maintenance Insurance [place] [address] Advance Directives For more information, please contact: [phone] * Full Code (Latest Code Status on File) Date Activated Date Inactivated Comments 06/17/2017 8:46 AM 06/17/2017 2:05 PM * Full Code Date Activated Date Inactivated Comments 04/01/2017 9:25 AM 04/01/2017 1:28 PM Care Teams Radio Sales Account Executive Relationship Specialty Start Date End Date Adolph Pal MD [address] [place] [id number] PCP - General Pediatrics 05/25/20
--- OUTSIDE RECORDS SUMMARY | 2024-11-19 01:18 | XMS_ITS | Encounter Summary ---
Author Organization [facility] Address [address] [place] [address] Care Team Providers Care Concrete Mixer Name Role Phone Adolph Pal MD Primary Care Provider [phone] Encounter Details Date Type Department Care Team (Late st Contact Info) Description 06/26/2014 Lab Requisition [facility] Services [address] [place] [address] Kimber Mendoza, HR SHARED SERVICES CONSULTANT [address] [place] [address] Social History Tobacco Use Types Packs/Day Years Used Date Smoking Tobacco: Never Alcohol Use Standard Drinks/Week Comments No 0 (1 standard drink = 0.6 oz pur e alcohol) Sex and Gender Information Value Date Recorded Sex Assigned at Not on file 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 AVG GLUCOSE, A1C 295 mg/dL 06/27/2014 12:06 AM CDT [facility] [employer] [facility] Blood 06/26/2014 10:2 3 PM CDT 06/26/2014 10:23 PM CDT Kimber Mendoza HR SHARED SERVICES CONSULTANT CHEMISTRY ORDERABLES Final Result [facility] [employer] [facility] CLIA # [id number] [address] [place] [address] * (ABNORMAL) BASIC METABOLIC PANEL (06/26/2014 10:23 PM CDT) SODIUM 135(L) 136 - 145 mmol/L 06/26/2014 11:24 PM T [facility] [employer] [facility] POTASSIUM 3.6 3.5 - 5.1 mmol/L 06/26/2014 11:24 PM T [facility] [employer] [facility] CHLORIDE 99 98 - 107 mmol/L 06/26/2014 11:24 PM T [facility] [employer] [facility] CO2 25 21 - 32 mmol/L 06/26/2014 11:24 PM CDT [facility] [employer] [facility] CALCIUM 10.1 8.5 - 10.1 mg/dL 06/26/2014 11:24 PM [facility] [employer] [facility] BUN 25(H) 7 - 18 mg/dL 06/26/2014 11:24 PM [facility] [employer] [facility] CREATININE 1.70(H) 0.60 - 1.30 mg/dL 06/26/2014 11:24 PM T [facility] [employer] [facility] GLUCOSE 236(H) 74 - 106 mg/dL 06/26/2014 11:24 PM T [facility] [employer] [facility] GFR 42(L) >=60 mL/min/1.7 3 sq meter 06/26/2014 11:24 PM [facility] [employer] [facility] Comment: eGFR has not been validated [...] 3 sq meter 06/26/2014 11:24 PM CDT [facility] [place] ANION GAP 11(L) 12 - 20 mmol/L 06/26/2014 11:24 PM CDT [facility] [place] Blood 06/26/2014 10:2 3 PM CDT 06/26/2014 10:23 PM CDT Kimber J Ray HR SHARED SERVICES CONSULTANT CHEMISTRY ORDERABLES Final Result Performing Organization Address City/[facility]/ZIP Co de Phone Number [facility] [employer] [facility] CLIA # [id number] [address] [place] [address] * ALT (06/26/2014 10:23 PM CDT) ALT 37 30 - 65 U/L 06/26/2014 11:24 PM CDT [facility] [employer] [facility] [place] Blood 06/26/2014 10:2 3 PM CDT 06/26/2014 10:23 PM CDT Kimber PPS Ray HR SHARED SERVICES CONSULTANT CHEMISTRY ORDERABLES Final Result Performing Organization Address City/[facility]/ZIP Co de Phone Number [facility] [employer] [facility] CLIA # [id number] [address] [place] [address] documented in this encounter Visit Diagnoses Not on filedocumented in this encounter Care Teams Concrete Mixer Relationship Specialty Start Date End Date Adolph Pal MD [address] [place] [address] PCP - General Pediatrics 05/25/20 documented as of this encounter
--- OUTSIDE RECORDS SUMMARY | 2024-11-19 01:18 | XMS_ITS | Patient Health Record ---
Author Organization [facility] Address [address] [place] [address] Care Team Providers Care Industrial Diamond Polisher Name Role Phone Roxana James APRN Primary Care Provider EFRAIN Garcia Unavailable [phone] ZAHIRA DYE Unavailable [phone] Allergies No Known Allergies Reason For Referral No Information Medications Medication SIG (Take, Route, Frequency, Duration) Notes Start Date End Date Status Carbidopa-Levodopa 25-100 MG 1 tablet as needed Orally Two times a Week Active Finasteride 5 MG 1 tablet Orally Once a day; Duration: 90 days Active Tamsulosin HCl 0.4 MG 1 capsule Orally Once a day; Duration: 90 days Active Clopidogrel Bisulfate 75 MG 1 tablet Orally Once a day Active Cipro *Pick strength-form from [employer] for eRX* Not-Taking Metoprolol Tartrate 50 MG 1 tablet with food Orally Twice a day Active Lisinopril 20 MG 1 tablet Orally Once a day Not-Taking Jardiance 25 MG 1 tablet Orally Once a day Active Furosemide 40 MG 1 tablet Orally Once a day Active Aspirin 81 81 MG 1 tablet Orally Once a day *Pick strength-form from [employer] for eRX* Active Pantoprazole Sodium 40 MG 1 tablet Orally Once a day Active Levemir FlexPen 100 UNIT/ML as directed Subcutaneous *Reorder from [employer] for eRx and Interaction Alerts* Not-Taking Isosorbide Mononitrate ER 60 MG 1 tablet in the morning Orally Once a day Active Victoza 18 MG/3ML as directed Subcutaneous Not-Taking Nitroglycerin 0.4 MG as directed Sublingual Active Atorvastatin Calcium 40 MG 1 tablet Orally Once a day Active Insulin Lispro 100 UNIT/ML as directed Subcutaneous *Pick strength-form from [employer] for eRX* Active Social History Tobacco Use: Social History Observation Description Date Details (start date - stop date) Former Smoker NA - NA Tobacco Use/Smoking Question Answer Notes Tobacco use: former smoker How long has it been since you last smoked? > 10 years AUDIT-C (Standard) Question Answer Notes Did you have a drink containing alcohol in the p ast year? No Points 0 Interpretation Negative Problems Problem Type SNOMED Code ICD Code Onset Dates Problem Status W/U Status Risk Notes Problem Balanitis (78336020) Balanitis (N48.1) Active confirmed Problem Dysuria (89410930) Dysuria (R30.0) Active confirmed Problem Lower urinary tract symptoms due to benign prostatic hypertrophy (38371509919589) Benign prostatic hyperplasia with lower urinary tract symptoms (N40.1) Active confirmed Problem History of urinary tract infection (1681350985143) Recent urinary tract infection (Z87.440) Active confirmed Problem Retention of urine (435636812) History of urinary retention (Z87.898) Active confirmed Problem History of urinary tract infection (4741537368785) History of UTI (Z87.440) Active confirmed Problem Urinary retention (390600464) Urinary retention (R33.9) Active confirmed Problem Benign prostatic hypertrophy with outflow obstruction (491652559) BPH loc w urin obs/LUTS (N40.1) Active confirmed Vital Signs Heart Rate 64 /min 11/09/2024 Blood pressure diastolic 50 mm Hg 11/09/2024 Height-cm 172.72 cm 11/09/2024 Weight-kg 101.61 kg 11/09/2024 Height 68 in 11/09/2024 Blood pressure systolic 128 mm Hg 11/09/2024 Weight 224 lbs 11/09/2024 BMI 34.06 kg/m2 11/09/2024 Procedures Procedure Date Ordered Date Performed Result Body Sit e Bladder Scan 11/09/2024 11/09/2024 N/A Encounters Encounter Location Date Provider Diagnosis [employer], [employer] [address] [place] [address] 11/09/2024 EFRAIN MATOS Benign prostatic hyperplasia with lower urinary tract symptoms N40.1 ; Glucosuria R81 ; Urinary urgency R39.15 ; History of UTI Z87.440 and History of urinary retention Z87.898 [facility] [address] [place] [address] 10/19/2024 EFRAIN MATOS Assessments Encounter Date Diagnosis (ICD Code) Assessment Notes Treatment Notes Treatment Clinical Notes Section Notes 11/09/2024 Benign prostatic hyperplasia with lower urinary tract symptoms (ICD-10 - N40.1) 11/09/2024 Glucosuria (ICD-10 - R81) 11/09/2024 Urinary urgency (ICD-10 - R39.15) 11/09/2024 History of UTI (ICD-10 - Z87.440) 11/09/2024 History of urinary retention (ICD-10 - Z87.898) 11/09/2024 Other Unable to give UA due to recent void. Bladder scan with only 70ml, no concern for retention at this time. PSA very low. Denies any hematuria, dysuria, or UTI. He has urgency and occasional UUI, but notes a good stream. No bother with frequency. Nocturia x 1-2. His cystoscopy in 2022 showed no obstruction, and he has been on max med management since then. Suspect his urgency is due to Jardiance causing glucosuria, and overconsuming bladder irritants. Recommend increasing water intake. Refilled medications. RTC in 1 year with UA/PVR, or PRN sooner. Plan Of Treatment Next Appt Details Provider Name:EFRAIN MATOS, 0 11/09/2025 02:30:00 PM, [address] [facility] [place], [address], Insurance Providers Payer Name Payer Address Payer Phone Subscriber Number Group Number Insured Name Patient Relationship to Insured Coverage Start Date Coverage End Date [place] Medicare Replacement [address] [place], [place] [phone] [id number] Yaya Astudillo Self - patient is the insured Healthy [facility] [address] [address] [place], [place] [id number] [phone] [id number] Yaya Astudillo Self - patient is the insured Medical (General) History Medical History History ICD Code Arthritis Heart Condition Diabetes Hemorrhoids Hospitalization History Reason Date(Month/Year) Urinary Issue 09/2022
--- OUTSIDE RECORDS SUMMARY | 2024-11-19 01:18 | XMS_ITS | Encounter Summary ---
Author Organization [employer] [facility] Address [address] [place] [address] Care Team Providers Care Batch Mixer Name Role Phone Adolph Pal MD Primary Care Provider [phone] [phone] Encounter Details Date Type Department Care Team (Late st Contact Info) Description 08/18/2011 Ancillary Orders [facility] Laboratory Services [place] [address] [place] [address] Sick Social History Tobacco Use Types Packs/Day Years Used Date Smoking Tobacco: Never Alcohol Use Standard Drinks/Week Comments No 0 (1 standard drink = 0.6 oz pur e alcohol) Sex and Gender Information Value Date Recorded Sex Assigned at Not on file 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 BUN 14 7 - 18 mg/dL 08/18/2011 11:[address] [facility] CREATININE 1.40(H) 0.60 - 1.30 mg/dL 08/18/2011 11:[address] [facility] GLUCOSE 179(H) 74 - 106 mg/dL 08/18/2011 11:[address] [facility] GFR 53(L) >=60 mL/min/1.7 3 sq meter 08/18/2011 11:[address] [facility] GFR, 64 >=60 mL/min/1.7 3 sq meter 08/18/2011 11:[address] [facility] Blood specimen (specimen) 08/18/2011 6:50 PM CDT 08/18/2011 10:29 PM CDT [facility] - 08/18/2011 11:11 PM CDT eGFR [...] Flanagan DO CHEMISTRY ORDERABLES Final Resu lt [facility] [facility] CLIA # [id number] [address] [place] [address] * (ABNORMAL) HEMOGLOBIN A1C (08/18/2011 6:50 PM CDT) HEMOGLOBIN A1C 9.3(H) 4.5 - 6.2 % 08/18/2011 11:[address] [facility] EST. AVG GLUCOSE, A1C 220 mg/dL 08/18/2011 11:[address] [facility] Blood specimen (specimen) 08/18/2011 6:50 PM CDT 08/18/2011 10:29 PM CDT Artie Flanagan DO CHEMISTRY ORDERABLES Final Resu lt [facility] [place] CLIA # [id number] 100 [facility] [address] [place] [address] documented in this encounter Visit Diagnoses Diagnosis Sick Other unknown and unspecified cause of morbidity or mortality documented in this encounter Care Teams Batch Mixer Relationship Specialty Start Date End Date Adolph Pal MD [address] [place] [phone] PCP - General Pediatrics 05/25/20 documented as of this encounter
--- OUTSIDE RECORDS SUMMARY | 2024-11-19 01:18 | XMS_ITS | Encounter Summary ---
Author Organization [employer] [facility] Address [address] [place] [address] Care Team Providers Care Imaging Engineer Name Role Phone Adolph Pal MD Primary Care Provider [phone] [phone] Encounter Details Date Type Department Care Team (Late st Contact Info) Description 08/14/2014 Lab Requisition [facility] Laboratory Services [place] [address] [place] [address] Randy Menendez, DO [address] [place] [phone] Other unknown and unspecified cause of morbidity or mortality Social History Tobacco Use Types Packs/Day Years Used Date Smoking Tobacco: Never Alcohol Use Standard Drinks/Week Comments No 0 (1 standard drink = 0.6 oz pur e alcohol) Sex and Gender Information Value Date Recorded Sex Assigned at Not on file Legal Sex Male 4:49 AM SEE SUPERVISOR Gender Identity Not on file Sexual Orientation [...] - 6.2 % 08/15/2014 1:30 AM CDT [facility]ATORY SERVICES - [place] EST. AVG GLUCOSE, A1C 258 mg/dL 08/15/2014 1:30 AM T [facility] LABORATORY [facility] Blood Collection / Unknown 08/14/2014 10:00 PM CDT 08/14/2014 10:00 PM CDT us Randy Menendez DO CHEMISTRY ORDERABLES Final Resu lt [facility] [place] CLIA # [id number] [address] [place] [address] * (ABNORMAL) COMPREHENSIVE METABOLIC PANEL (08/14/2014 10:00 PM CDT) SODIUM 138 136 - 145 mmol/L 08/14/2014 11:47 PM T [facility] LABORATORY [facility] POTASSIUM 3.9 3.5 - 5.1 mmol/L 08/14/2014 11:47 PM T [facility] LABORATORY [facility] [place] CHLORIDE 103 98 - 107 mmol/L 08/14/2014 11:47 PM T [facility] LABORATORY [facility] [place] CO2 25 21 - 32 mmol/L 08/14/2014 11:47 PM T [facility] [employer] [facility] [place] CALCIUM 9.2 8.5 - 10.1 mg/dL 08/14/2014 11:47 PM T [facility] [employer] [facility] BUN 25(H) 7 - 18 mg/dL 08/14/2014 11:47 PM T [facility] LABORATORY [facility] CREATININE 1.30 0.60 - 1.30 mg/dL 08/14/2014 11:47 PM T [facility] LABORATORY [facility] [place] GLUCOSE 195(H) 74 - 106 mg/dL 08/14/2014 11:47 PM T [facility] LABORATORY [facility] [place] TOTAL PROTEIN 7.4 6.4 - 8.2 g/dL 08/14/2014 11:47 PM T [facility] LABORATORY [facility] [place] ALBUMIN 3.8 3.4 - 5.0 g/dL 08/14/2014 11:47 PM T [facility] LABORATORY [facility] [place] BILIRUBIN TOTAL 0.3 0.2 - 1.0 mg/dL 08/14/2014 11:47 PM T [facility] LABORATORY [facility] ALKALINE PHOSPHATASE 82 46 - 116 U/L 08/14/2014 11:47 PM [facility] AST 26 15 - 37 U/L 08/14/2014 11:47 PM [facility] ALT 39 30 - 65 U/L 08/14/2014 11:47 PM T [facility] GFR 57(L) >=60 mL/min/1.7 3 sq meter 08/14/2014 11:47 PM [facility] [employer] [facility] Comment: eGFR has not been validated for [...] 3 sq meter 08/14/2014 11:47 PM T [facility] [employer] [facility] ANION GAP 10(L) 12 - 20 mmol/L 08/14/2014 11:47 PM [facility] [employer] [facility] Blood Collection / Unknown 08/14/2014 10:00 PM CDT 08/14/2014 10:00 PM CDT Narrative [facility] [employer] [facility] - 08/14/2014 11:47 PM CDT Effective 12/15/2013, the Alkaline Phosphatase test method and reference range have changed. Please take this into consideration when interpreting results prior to or after this date. us Randy Menendez DO CHEMISTRY ORDERABLES Final Resu lt [facility] [employer] [facility] CLIA # [id number] [address] [place] [address] documented in this encounter Visit Diagnoses Diagnosis Other unknown and unspecified cause of morbidity or mortality documented in this encounter Care Teams Imaging Engineer Relationship Specialty Start Date End Date Adolph Pal MD [address] [place] [phone] PCP - General Pediatrics 05/25/20 documented as of this encounter
--- OUTSIDE RECORDS SUMMARY | 2024-11-19 01:18 | XMS_ITS | Encounter Summary ---
Author Organization [employer] [facility] Address [address] [place] [address] Care Team Providers Care Lab Support Tech Name Role Phone Adolph Pal MD Primary Care Provider [phone] [phone] Encounter Details Date Type Department Care Team (Late st Contact Info) Description 03/13/2014 Ancillary Orders [facility] Laboratory Services [place] [address] [place] [address] Social History Tobacco Use Types Packs/Day Years Used Date Smoking Tobacco: Never Alcohol Use Standard Drinks/Week Comments No 0 (1 standard drink = 0.6 oz pur e alcohol) Sex and Gender Information Value Date Recorded Sex Assigned at Not on file 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 Gender Identity Not on file Sexual Orientation Not on file Occupation Industry Job Start Date Job End Date Not on file Not on file Not on file Not on file documented as of this encounter Plan of Treatment Not on file documented as of this encounter Procedures Procedure Name Priority Date/Time Associated Diagnosis Comments HEMOGLOBIN A1C Routine 03/13/2014 8:52 PM SUPERVISOR ELECTRON TUBE PROCESSING COMPREHENSIVE METABOLIC PANEL Routine 03/13/2014 8:52 PM SUPERVISOR ELECTRON TUBE PROCESSING documented in this encounter Results * (ABNORMAL) HEMOGLOBIN A1C (03/13/2014 8:52 PM SUPERVISOR ELECTRON TUBE PROCESSING) HEMOGLOBIN A1C 10.8(H) 4.5 - 6.2 % 03/14/2014 12:40 AM SUPERVISOR ELECTRON TUBE PROCESSING [facility] LABORATORY [facility] EST. AVG GLUCOSE, A1C 263 mg/dL 03/14/2014 12:40 AM SUPERVISOR ELECTRON TUBE PROCESSING [facility] Blood 03/13/2014 8:52 PM SUPERVISOR ELECTRON TUBE PROCESSING 03/13/2014 10:50 PM SUPERVISOR ELECTRON TUBE PROCESSING Andres RUANO CHEMISTRY ORDERABLES Final R esult [facility]ATORY SERVICES - [place] CLIA # [id number] [address] [address] * (ABNORMAL) COMPREHENSIVE METABOLIC PANEL (03/13/2014 8:52 PM SUPERVISOR ELECTRON TUBE PROCESSING) SODIUM 137 136 - 145 mmol/L 03/13/2014 11:50 PM [facility] LABORATORY [facility] [place] POTASSIUM 4.2 3.5 - 5.1 mmol/L 03/13/2014 11:50 PM [facility] LABORAT[facility] [place] CHLORIDE 99 98 - 107 mmol/L 03/13/2014 11:50 PM [facility] [place] CO2 28 21 - 32 mmol/L 03/13/2014 11:50 PM [facility] LABORAT[facility] [place] CALCIUM 9.9 8.5 - 10.1 mg/dL 03/13/2014 11:50 PM [facility] BUN 17 7 - 18 mg/dL 03/13/2014 11:50 PM [facility] CREATININE 1.30 0.60 - 1.30 mg/dL 03/13/2014 11:50 PM [facility] GLUCOSE 355(H) 74 - 106 mg/dL 03/13/2014 11:50 PM [facility] TOTAL PROTEIN 7.6 6.4 - 8.2 g/dL 03/13/2014 11:50 PM [facility] ALBUMIN 4.0 3.4 - 5.0 g/dL 03/13/2014 11:50 PM [facility] [place] BILIRUBIN TOTAL 0.6 0.2 - 1.0 mg/dL 03/13/2014 11:50 PM [facility] [place] ALKALINE PHOSPHATASE 89 46 - 116 U/L 03/13/2014 11:50 PM [email or web address] [employer] LABORATORY [facility] [place] AST 47(H) 15 - 37 U/L 03/13/2014 11:50 PM [facility] [place] ALT 58 30 - 65 U/L 03/13/2014 11:50 PM [facility] [place] GFR 57(L) >=60 mL/min/1.7 3 sq meter 03/13/2014 11:50 PM [facility] [[email or web address]] [employer] [facility] Comment: eGFR has not been validated for [...] mL/min/1.7 3 sq meter 03/13/2014 11:50 PM [facility] [[email or web address]] [employer] [facility] ANION GAP 10(L) 12 - 20 mmol/L 03/13/2014 11:50 PM [facility] [employer] [facility] Blood 03/13/2014 8:52 PM SUPERVISOR ELECTRON TUBE PROCESSING 03/13/2014 10:50 PM SUPERVISOR ELECTRON TUBE PROCESSING Narrative [facility] [employer] [facility] - 03/13/2014 11:50 PM SUPERVISOR ELECTRON TUBE PROCESSING Effective 12/15/2013, the Alkaline Phosphatase test method and reference range have changed. Please take this into consideration when interpreting results prior to or after this date. Andres RUANO CHEMISTRY ORDERABLES Final R esult [facility] [employer] [facility] [id number] [address] [place] [address] documented in this encounter Visit Diagnoses Not on filedocumented in this encounter Care Teams Lab Support Tech Relationship Specialty Start Date End Date Adolph Pal MD [address] [place] [phone] PCP - General Pediatrics 05/25/20 documented as of this encounter
--- OUTSIDE RECORDS SUMMARY | 2024-11-19 01:18 | XMS_ITS | Encounter Summary ---
Author Organization [facility] Address [address] [place] [address] Care Team Providers Care Laundrette Owner Name Role Phone Adolph Pal MD Primary Care Provider [phone] [phone] Encounter Details Date Type Department Care Team (Late st Contact Info) Description 08/06/2009 Ancillary Orders [facility] Cardiology- [place] [address] [place] [address] Artie Flanagan DO NO ADDRESS ON FILE Unspecified Chest Pain Social History Tobacco Use Types Packs/Day Years Used Date Smoking Tobacco: Never Alcohol Use Standard Drinks/Week Comments No 0 (1 standard drink = 0.6 oz pur e alcohol) Sex and Gender Information Value Date Recorded Sex Assigned at Not on file 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
--- OUTSIDE RECORDS SUMMARY | 2024-11-19 01:18 | XMS_ITS | Encounter Summary ---
Author Organization [employer] [facility] Address [address] [place] [address] Care Team Providers Care Email Marketing Processor Name Role Phone Adolph Pal MD Primary Care Provider [phone] [phone] Encounter Details Date Type Department Care Team (Late st Contact Info) Description 12/08/2011 Ancillary Orders [facility] Laboratory Services [place] [address] [place] [address] Sick Social History Tobacco Use Types Packs/Day Years Used Date Smoking Tobacco: Never Alcohol Use Standard Drinks/Week Comments No 0 (1 standard drink = 0.6 oz pur e alcohol) Sex and Gender Information Value Date Recorded Sex Assigned at Not on file 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 Gender Identity Not on file Sexual Orientation [...] - 145 mmol/L 12/08/2011 10:52 PM CDT [facility] LABORATORY SERVICES - [place] POTASSIUM 3.9 3.5 - 5.1 mmol/L 12/08/2011 10:52 PM CDT [facility] LABORATORY SERVICES - [place] CHLORIDE 103 98 - 107 mmol/L 12/08/2011 10:52 PM CDT [facility] LABORATORY SERVICES - [place] CO2 26 21 - 32 mmol/L 12/08/2011 10:52 PM CDT [facility] CALCIUM 8.9 8.5 - 10.1 mg/dL 12/08/2011 10:52 PM [facility] BUN 22(H) 7 - 18 mg/dL 12/08/2011 10:52 PM [facility] CREATININE 1.60(H) 0.60 - 1.30 mg/dL 12/08/2011 10:52 PM [facility] GLUCOSE 182(H) 74 - 106 mg/dL 12/08/2011 10:52 PM [facility] TOTAL PROTEIN 7.6 6.4 - 8.2 g/dL 12/08/2011 10:52 PM [facility] ALBUMIN 4.0 3.4 - 5.0 g/dL 12/08/2011 10:52 PM [facility] BILIRUBIN TOTAL 0.3 0.2 - 1.0 mg/dL 12/08/2011 10:52 PM [facility] ALKALINE PHOSPHATASE 90 50 - 136 U/L 12/08/2011 10:52 PM [facility] AST 23 15 - 37 U/L 12/08/2011 10:52 PM [facility] ALT 45 30 - 65 U/L 12/08/2011 10:52 PM [facility] GFR 45(L) >=60 mL/min/1.7 3 sq meter 12/08/2011 10:52 PM [facility] GFR, 54(L) >=60 mL/min/1.7 3 sq meter 12/08/2011 10:52 PM [facility] Blood specimen (specimen) 12/08/2011 7:10 PM CDT 12/08/2011 10:21 PM T [facility] - 12/08/2011 10:52 PM CDT eGFR has [...] ORDERABLES Final Resu lt Performing Organization Address City/[facility] Co de Phone Number [facility] CLIA # [id number] [address] [place] [address] * (ABNORMAL) HEMOGLOBIN A1C (12/08/2011 7:10 PM CDT) HEMOGLOBIN A1C 10.1(H) 4.5 - 6.2 % 12/08/2011 11:36 PM CDT [facility] LABORATORY [facility] EST. AVG GLUCOSE, A1C 243 mg/dL 12/08/2011 11:36 PM CDT [facility] [employer] [facility] Blood specimen (specimen) 12/08/2011 7:10 PM CDT 12/08/2011 10:21 PM CDT Randy Menendez DO CHEMISTRY ORDERABLES Final Resu lt Performing Organization Address City/[facility] Co de Phone Number [facility] CLIA # [id number] [address] [place] [address] documented in this encounter Visit Diagnoses Diagnosis Sick Other unknown and unspecified cause of morbidity or mortality documented in this encounter Care Teams Email Marketing Processor Relationship Specialty Start Date End Date Adolph Pal MD [address] [place] [phone] PCP - General Pediatrics 05/25/20 documented as of this encounter
--- OUTSIDE RECORDS SUMMARY | 2024-11-19 01:18 | XMS_ITS | Clinical Summary ---
Author Organization [facility] Facility Address [address] [place] [address] Care Team Providers Care Materials Recycler Name Role Phone Roxana James DIRECTOR LOSS PREVENTION Primary Care Provider [phone] Allergies No known active allergies Medications pantoprazole [...] mouth 1 (one) time each day Active Powers-3 Fatty Acids (OMEGA-3 FISH OIL PO) Take [...] Herring MA - 01/16/2023 2:49 PM CDT [facility] Clinical Laboratory [address] [place] [address] Tony Sanford, Passport Support Manager [facility] External Provider LAB BLOOD ORDERABLES Final Result from Last 3 Months or Most Recently Relevant to Health Maintenance Insurance Medicaid [place] ([id number]) [facility] Care Teams Materials Recycler Relationship Specialty Start Date End Date Roxana James FNP [address] [place] [phone] PCP - General Nurse Practitioner 11/13/21
--- OUTSIDE RECORDS SUMMARY | 2024-11-19 01:18 | XMS_ITS | Encounter Summary ---
Author Organization [employer] [facility] Address [address] [place] [address] Care Team Providers Care Terrazzo Worker Helper Name Role Phone Adolph Pal MD Primary Care Provider [phone] Encounter Details Date Type Department Care Team (Late st Contact Info) Description 02/07/2013 Ancillary Orders [facility] Laboratory Services [place] [address] [place] [address] Sick Social History Tobacco Use Types Packs/Day Years Used Date Smoking Tobacco: Never Alcohol Use Standard Drinks/Week Comments No 0 (1 standard drink = 0.6 oz pur e alcohol) Sex and Gender Information Value Date Recorded Sex Assigned at Not on file 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 Gender Identity Not on file Sexual Orientation [...] - 145 mmol/L 02/07/2013 10:37 PM CDT [facility] [place] POTASSIUM 4.0 3.5 - 5.1 mmol/L 02/07/2013 10:37 PM CDT [facility] [place] CHLORIDE 100 98 - 107 mmol/L 02/07/2013 10:37 PM CDT [facility] [place] CO2 23 21 - 32 mmol/L 02/07/2013 10:37 PM [facility] [employer] [facility] CALCIUM 9.2 8.5 - 10.1 mg/dL 02/07/2013 10:37 PM [facility] [employer] [facility] BUN 19(H) 7 - 18 mg/dL 02/07/2013 10:37 PM [facility] CREATININE 1.20 0.60 - 1.30 mg/dL 02/07/2013 10:37 PM [facility] [employer] [facility] GLUCOSE 320(H) 74 - 106 mg/dL 02/07/2013 10:37 PM [facility] [employer] [facility] TOTAL PROTEIN 7.5 6.4 - 8.2 g/dL 02/07/2013 10:37 PM [facility] ALBUMIN 3.9 3.4 - 5.0 g/dL 02/07/2013 10:37 PM [facility] [employer] [facility] BILIRUBIN TOTAL 0.4 0.2 - 1.0 mg/dL 02/07/2013 10:37 PM [facility] [employer] [facility] ALKALINE PHOSPHATASE 117 50 - 136 U/L 02/07/2013 10:37 PM [facility] [employer] [facility] AST 30 15 - 37 U/L 02/07/2013 10:37 PM [facility] [employer] [facility] ALT 47 30 - 65 U/L 02/07/2013 10:37 PM [facility] GFR 62 >=60 mL/min/1.7 3 sq meter 02/07/2013 10:37 PM [facility] Comment: eGFR has not been validated for [...] mL/min/1.7 3 sq meter 02/07/2013 10:37 PM [facility] [employer] [facility] Comment: eGFR has not been validated for [...] 02/07/2013 9:37 PM CDT us Summer Escalona [facility] CHEMISTRY ORDERABLES Final Resul t Performing Organization Address [facility] de Phone Number [facility] [employer] [facility] # [id number] [address] [place] [address] * (ABNORMAL) HEMOGLOBIN A1C (02/07/2013 8:34 PM CDT) HEMOGLOBIN A1C 9.9(H) 4.5 - 6.2 % 02/07/2013 10:55 PM CDT [facility] EST. AVG GLUCOSE, A1C 237 mg/dL 02/07/2013 10:55 PM CDT [facility] [employer] [facility] Blood specimen (specimen) Collection / Unknown 02/07/2013 8:34 PM CDT 02/07/2013 9:37 PM CDT us Summer Escalona [facility] CHEMISTRY ORDERABLES Final Resul t Performing Organization Address [facility] de Phone Number [facility] [employer] [facility] CLIA # [id number] [address] [place] [address] documented in this encounter Visit Diagnoses Diagnosis Sick Other unknown and unspecified cause of morbidity or mortality documented in this encounter Care Teams Terrazzo Worker Helper Relationship Specialty Start Date End Date Adolph Pal MD [address] [place] [address] PCP - General Pediatrics 05/25/20 documented as of this encounter
--- OUTSIDE RECORDS SUMMARY | 2024-11-19 01:18 | XMS_ITS | Encounter Summary ---
Author Organization [facility] Address [address] [place] [address] Care Team Providers Care Account Adjuster Name Role Phone Adolph Pal MD Primary Care Provider [phone] Encounter Details Date Type Department Care Team (Late st Contact Info) Description 12/04/2014 Lab Requisition [facility] Laboratory Services [place] [address] [place] [address] Andres Simpson NP [address] [place] [address] Social History Tobacco Use Types Packs/Day Years Used Date Smoking Tobacco: Never Alcohol Use Standard Drinks/Week Comments No 0 (1 standard drink = 0.6 oz pur e alcohol) Sex and Gender Information Value Date Recorded Sex Assigned at Not on file 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 Gender Identity Not on file Sexual Orientation [...] - 3.1 ng/mL 12/04/2014 11:46 PM CDT [facility] Blood 12/04/2014 10:4 1 PM CDT 12/04/2014 10:41 PM CDT Andres Simpson NP CHEMISTRY ORDERABLES Final Resu lt [facility] [place] CLIA # [id number] [address] [place] [id number] documented in this encounter Visit Diagnoses Not on filedocumented in this encounter Care Teams Account Adjuster Relationship Specialty Start Date End Date Adolph Pal MD [address] [place] [address] PCP - General Pediatrics 05/25/20 documented as of this encounter
--- OUTSIDE RECORDS SUMMARY | 2024-11-19 01:18 | XMS_ITS ---
Author Organization Unknown Vital Signs BpStanding BpSitting BpSupine Date Temperature HeartRate Weight Hei ght Spo2 Respiration Bmi HeadCircumference FieldCount TimeRecorded NeckCircumferen ce WaistCircumference Pulse 138/88 10/25 00:00 :00 97.8 223,16. 00 5,8 98 34.1 00:00 66 05/30 00:00 :00 5,8 00:00 130/80 03/09 00:00 :00 98 216,16. 00 5,8 94 33 00:00 84 110/76 06/14 00:00 :00 219,16. 00 5,8 98 18 33.5 00:00 38 154/86 11/23 00:00 :00 98.6 202,0.0 0 5,8 97 16 30.7 00:00 79 128/58 01/07 00:00 :00 214,0.0 0 5,8 98 20 32.5 00:00 46 132/80 06/02 00:00 :00 98.5 224,16. 00 5,8 98 34.2 00:00 78 138/80 11/30 00:00 :00 98 202,0.0 0 5,8 20 30.7 00:00 78 120/80 07/26 00:00 :00 211,16. 00 5,8 98 18 32.2 00:00 80 134/88 04/01 00:00 :00 228,16. 00 5,8 97 20 34.8 00:00 70
--- OUTSIDE RECORDS SUMMARY | 2024-11-19 01:18 | XMS_ITS | Encounter Summary ---
Author Organization [facility] Address [address] [place] [address] Care Team Providers Care Zipper Sewing Machine Operator Name Role Phone Adolph Pal MD Primary Care Provider [phone] Encounter Details Date Type Department Care Team (Late st Contact Info) Description 10/18/2012 Ancillary Orders [facility] Laboratory Services [place] [address] [place] [address] Sick Social History Tobacco Use Types Packs/Day Years Used Date Smoking Tobacco: Never Alcohol Use Standard Drinks/Week Comments No 0 (1 standard drink = 0.6 oz pur e alcohol) Sex and Gender Information Value Date Recorded Sex Assigned at Not on file 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 Gender Identity Not on file Sexual Orientation [...] - 145 mmol/L 10/18/2012 10:48 PM CDT [facility] [place] POTASSIUM 4.3 3.5 - 5.1 mmol/L 10/18/2012 10:48 PM CDT [facility] [place] CHLORIDE 98 98 - 107 mmol/L 10/18/2012 10:48 PM CDT [facility] [place] CO2 27 21 - 32 mmol/L 10/18/2012 10:48 PM CDT [facility] [employer] [facility] CALCIUM 9.4 8.5 - 10.1 mg/dL 10/18/2012 10:48 PM CDT [facility] [employer] [facility] BUN 22(H) 7 - 18 mg/dL 10/18/2012 10:48 PM CDT [facility] [employer] [facility] CREATININE 1.70(H) 0.60 - 1.30 mg/dL 10/18/2012 10:48 PM T [facility] [employer] [facility] GLUCOSE 315(H) 74 - 106 mg/dL 10/18/2012 10:48 PM CDT [facility] [employer] [facility] GFR 42(L) >=60 mL/min/1.7 3 sq meter 10/18/2012 10:48 PM T [facility] [employer] [facility] Comment: eGFR has not been validated [...] 3 sq meter 10/18/2012 10:48 PM T [facility] [employer] [facility] Comment: eGFR has not been validated [...] 10/18/2012 10:03 PM CDT us Kimber Mendoza BAKERY DELIVERER CHEMISTRY ORDERABLES Final Result [facility] [employer] [facility] CLIA # [id number] [address] [place] [address] * (ABNORMAL) HEMOGLOBIN A1C (10/18/2012 8:33 PM CDT) HEMOGLOBIN A1C 9.8(H) 4.5 - 6.2 % 10/18/2012 11:56 PM CDT [facility] EST. AVG GLUCOSE, A1C 235 mg/dL 10/18/2012 11:56 PM CDT [facility] Blood specimen (specimen) Venipuncture - Lab Collect / Unknown 10/18/2012 8:33 PM CDT 10/18/2012 10:03 PM CDT Kimber Mendoza BAKERY DELIVERER CHEMISTRY ORDERABLES Final Result [facility] CLIA # [id number] [address] [place] [address] documented in this encounter Visit Diagnoses Diagnosis Sick Other unknown and unspecified cause of morbidity or mortality documented in this encounter Care Teams Zipper Sewing Machine Operator Relationship Specialty Start Date End Date Adolph Pal MD [address] [place] [phone] PCP - General Pediatrics 05/25/20 documented as of this encounter
--- OUTSIDE RECORDS SUMMARY | 2024-11-19 01:18 | XMS_ITS | Encounter Summary ---
Author Organization [facility] Address [address] [place] [address] Care Team Providers Care Ehs Specialist Name Role Phone Adolph Pal MD Primary Care Provider [phone] Encounter Details Date Type Department Care Team (Late st Contact Info) Description 01/16/2015 Ancillary Orders [facility] Medicine [place] [address] [facility] [address] [place] [address] Amy Valenzuela, INFANTRY OPERATIONS SPECIALIST NO ADDRESS ON FILE 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 ([facility]) (Primary Dx); Callous ulcer, limited to breakdown of skin ([facility]) Social History Tobacco Use Types Packs/Day Years Used Date Smoking Tobacco: Former Cigarettes Q uit: 04/13/1984 Smokeless Tobacco: Former Quit: 04/13/1974 Alcohol Use Standard Drinks/Week Comments No 0 (1 standard drink = 0.6 oz pur e alcohol) Sex and Gender Information Value Date Recorded Sex Assigned at Not on file 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 no acute changes seen Amy Sanmilam INFANTRY OPERATIONS SPECIALIST DIAGNOSTIC IMAGIN G ORDERABLES Final Result documented in this encounter Visit Diagnoses Diagnosis 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 (CMS/HCC) Callous ulcer, limited to breakdown of skin (CMS/HCC) 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 (CMS/HCC)- Primary Callous ulcer, limited to breakdown of skin (CMS/HCC) documented in this encounter Care Teams Ehs Specialist Relationship Specialty Start Date End Date Adolph Pal MD [address] [place] [phone] PCP - General Pediatrics 05/25/20 documented as of this encounter
--- OUTSIDE RECORDS SUMMARY | 2024-11-19 01:18 | XMS_ITS | Clinical Summary ---
Author Organization [employer] Address [address] [facility] Attn: [place] [address] Care Team Providers Care Real Estate Associate Name Role Phone Adolph Pal MD Primary Care Provider [phone] Allergies No known active allergies Medications insulin detemir U-100 (Levemir FlexTouch U-100 Insuln) 100 unit/mL pen syringe INJECT 20 UNITS SUB-Q EVERY MORNING AND 55 UNITS IN THE EVENING 9 mL 0 8 Active lancets 30 gauge Use bid to check blood sugars, Dx E11.9, . 100 Each 5 6 Active Insulin [place], Disposable, 31 gauge x 3/16 Needle For levemir flex pen and novolog flex pen. 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 SCIENTIST Gender Identity Not on file Sexual Orientation Not on file Last Filed Vital Signs Vital Sign Reading Time Taken Comments Blood Pressure 151/85 04/14/2024 10:09 AM DATA ANALYTICS CHIEF SCIENTIST pt reports will take BP meds when he gets home Pulse 66 04/14/2024 10:09 AM DATA ANALYTICS CHIEF SCIENTIST Temperature 36.3 C (97.4 F) 04/14/2024 10:09 AM DATA ANALYTICS CHIEF SCIENTIST Respiratory Rate 16 04/14/2024 10:0 9 AM DATA ANALYTICS CHIEF SCIENTIST Oxygen Saturation 96% 04/14/2024 10: 09 AM DATA ANALYTICS CHIEF SCIENTIST Inhaled Oxygen Concentration - - Weight 103.4 kg (228 lb) 04/14/2024 7:3 7 AM DATA ANALYTICS CHIEF SCIENTIST Height 172.7 cm (5' 8 ) 04/14/2024 7:37 AM DATA ANALYTICS CHIEF SCIENTIST Body Mass Index 34.67 04/14/2024 7:37 AM DATA ANALYTICS CHIEF SCIENTIST Plan of Treatment Health Maintenance Due Date [...] 09/14/2022, 04/29/2017 Medical Devices Implanted Type Area Signals Collector/Analyst Device Identifier Shelf Expiration Date Model / Serial / Lot Lens Io Bi-Aspheric Softechd+19.50 - [id number] Implanted:Qty: 1 on 04/01/2017 by Lev Todd MD Eye Right: Eye [employer] 02/26/2021 SOFTECHD+19 .50 / [id number] / Lens Io Bi-Aspheric Softechd+19.50 - [id number] Implanted:Qty: 1 on 06/17/2017 by Lev Todd MD Eye Left: Eye [employer] 11/19/2021 SOFTECHD+19 .50 / [id number] / Explanted Type Area Signals Collector/Analyst Device Identifier Shelf Expiration Date Model / Serial / Lot Oil Slc 8.5ml [id number] - [id number] Implanted:Qty: 1 on 04/30/2023 by lFori Copeland MD at [facility] Explanted:Qty: 1 on 04/14/2024 by Flori Copeland MD at [facility] Eye Right: Eye [facility] 10/10/2024 [id number] / / [id number] Description:GTIN: [id number] Procedures Procedure Name Priority Date/Time Associated Diagnosis Comments HEMOGLOBIN A1C Routine 12/04/2015 9:39 AM CDT MICROALBUMIN/CREATIN INE RATIO, RANDOM UR Routine 09/03/2015 9:40 AM CDT LIPID PANEL Routine 09/03/2015 9:40 AM CDT from Last 3 Months or Most Recently Relevant to Health Maintenance Results * (ABNORMAL) HEMOGLOBIN A1C (12/04/2015 9:39 AM CDT) HEMOGLOBIN A1C 11.7(H) 4.0 - 6.0 % 12/05/2015 9:15 AM CDT [facility] EST. AVG GLUCOSE, A1C 289 mg/dL 12/05/2015 9:15 AM CDT [facility] Blood Collection / Unknown 12/04/2015 9:39 AM CDT 12/04/2015 8:20 PM CDT Narrative [facility] - 12/05/2015 9:15 AM CDT Falsely low A1C measurements can occur when: 1. Anemia and/or hemolytic anemia is present. 2. Hemoglobin variants present. 3. Renal failure. 4. Transfusion of blood product in the last 120 days. We recommend ordering a fructosamine test([id number]) to more accurately assess glycemic status if any of the above conditions are present. Amy Valenzuela ETL DATABASE DEVELOPER CHEMISTRY ORDERAB LES Final Result [facility] CLIA# [id number] [address] [place] [address] * MICROALBUMIN/CREATININE RATIO, RANDOM UR (09/03/2015 9:40 AM CDT) MICROALBUMIN, URINE 5.7 mg/dL 09/03/2015 9:23 PM CDT [facility] CREATININE, URINE 89.7 40.0 - 278.0 mg/dL 09/03/2015 9:23 PM CDT [facility] Comment: Reference Range varies with fluid intake and diet. MICROALBUMIN/CR EAT RATIO, UR 63.5 mg/g Creatinine 09/03/2015 9:23 PM CDT [facility] Comment: Condition mg/g Creatinine Normal Males <17 Normal Females <25 Microalbuminuria Males 17-299 Microalbuminuria Females 25-299 Overt proteinuria >=300 Urine URINE SPECIMEN OBTAINED BY CLEAN CATCH PROCEDURE / Unknown Collection / Unknown 09/03/2015 9:40 AM CDT 09/03/2015 8:36 PM CDT Amy Valenzuela ETL DATABASE DEVELOPER URINE ORDERABLES Final Result [facility] CLIA# [id number] [address] [place] [address] * (ABNORMAL) LIPID PANEL (09/03/2015 9:40 AM CDT) CHOLESTEROL 140 <200 mg/dL 09/03/2015 9:38 PM CDT [facility] TRIGLYCERIDE 177(H) <150 mg/dL 09/03/2015 9:38 PM CDT [facility] HDL 21(L) 40 - 59 mg/dL 09/03/2015 9:38 PM CDT [facility] LDL CALCULATED 84 <100 mg/dL 09/03/2015 9:38 PM CDT [facility] NON-HDL CHOLESTEROL 119 <130 mg/dL 09/03/2015 9:38 PM CDT [facility] Blood Collection / Unknown 09/03/2015 9:40 AM CDT 09/03/2015 8:38 PM CDT Narrative [facility] - 09/03/2015 9:38 PM [...] >=220 Based on AHA/NCEP Guidelines Amy Valenzuela ETL DATABASE DEVELOPER CHEMISTRY ORDERAB LES Final Result [facility] CLIA# [id number] [address] [place] [address] from Last 3 Months or Most Recently Relevant to Health Maintenance Insurance MEDICAID [facility] DUAL ADVANTAGE O DSNP Care Teams Real Estate Associate Relationship Specialty Start Date End Date Adolph Pal MD [address] [place] [phone] PCP - General Pediatrics 05/25/20
--- OUTSIDE RECORDS SUMMARY | 2024-11-19 01:18 | XMS_ITS | Encounter Summary ---
Author Organization [employer] [facility] Address [address] [place] [address] Care Team Providers Care Principle Software Engineer Name Role Phone Adolph Pal MD Primary Care Provider [phone] Encounter Details Date Type Department Care Team (Latest Contact Info) Description 10/17/2013 Ancillary Orders [facility] General Laboratory Services [place] [address] [place] [address] Type II or unspecified type diabetes mellitus without mention of complication, not stated as uncontrolled (CMS/FORMERLY [facility]) Social History Tobacco Use Types Packs/Day Years Used Date Smoking Tobacco: Never Alcohol Use Standard Drinks/Week Comments No 0 (1 standard drink = 0.6 oz pur e alcohol) Sex and Gender Information Value Date Recorded Sex Assigned at Not on file 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[employer] Gender Identity Not on file Sexual Orientation [...] - 200 mg/dL 10/17/2013 9:49 PM CDT [facility] TRIGLYCERIDE 383(H) 30 - 200 mg/dL 10/17/2013 9:49 PM CDT [facility] HDL 21(L) 35 - 80 mg/dL 10/17/2013 9:49 PM CDT [facility] LDL CALCULATED 66 0 - 100 mg/dL 10/17/2013 9:49 PM CDT [facility] Blood 10/17/2013 8:30 PM CDT 10/17/2013 9:10 PM CDT Narrative [facility] [employer] [facility] - 10/17/2013 9:49 PM CDT TOTAL CHOLESTEROL mg/dL Desirable <200 Borderline high 200-239 High >=240 TRIGLYCERIDES mg/dL Normal <150 Borderline high 150-199 High 200-499 Very high >=500 HDL CHOLESTEROL mg/dL Low <40 Normal 40-60 Desirable >60 LDL CHOLESTEROL mg/dL Optimal <100 Low risk 100-129 Borderline high 130-159 High 160-189 Very high >=190 Based on AHA/NCEP Guidelines Linda Bazan [facility] CHEMISTRY ORDERABLES Final Resu lt [facility] [employer] [facility] CLIA # [id number] [address] [place] [address] * (ABNORMAL) HEMOGLOBIN A1C (10/17/2013 8:30 PM CDT) HEMOGLOBIN A1C 14.6(H) 4.5 - 6.2 % 10/17/2013 10:18 PM CDT [facility] [employer] [facility] EST. AVG GLUCOSE, A1C 372 mg/dL 10/17/2013 10:18 PM CDT [facility] [employer] [facility] Blood 10/17/2013 8:30 PM CDT 10/17/2013 9:10 PM CDT us Linda Bazan PLASTIC OUTFITTER CHEMISTRY ORDERABLES Final Resu lt [facility] [place] CLIA # [id number] [address] [place] [address] * (ABNORMAL) COMPREHENSIVE METABOLIC PANEL (10/17/2013 8:30 PM CDT) SODIUM 136 136 - 145 mmol/L 10/17/2013 9:50 PM CDT [facility] [place] POTASSIUM 4.3 3.5 - 5.1 mmol/L 10/17/2013 9:50 PM CDT [facility] [place] [place] CHLORIDE 101 98 - 107 mmol/L 10/17/2013 9:50 PM CDT [facility] [place] CO2 25 21 - 32 mmol/L 10/17/2013 9:50 PM CDT [facility] CALCIUM 9.1 8.5 - 10.1 mg/dL 10/17/2013 9:50 PM CDT [facility] BUN 18 7 - 18 mg/dL 10/17/2013 9:50 PM CDT [facility] CREATININE 1.50(H) 0.60 - 1.30 mg/dL 10/17/2013 9:50 PM CDT [facility] [place] GLUCOSE 377(H) 74 - 106 mg/dL 10/17/2013 9:50 PM T [facility] TOTAL PROTEIN 7.5 6.4 - 8.2 g/dL 10/17/2013 9:50 PM CDT [facility] [place] [place] ALBUMIN 3.9 3.4 - 5.0 g/dL 10/17/2013 9:50 PM CDT [facility] [place] BILIRUBIN TOTAL 0.3 0.2 - 1.0 mg/dL 10/17/2013 9:50 PM CDT [facility] [place] ALKALINE PHOSPHATASE 128 50 - 136 U/L 10/17/2013 9:50 PM CDT [facility] [place] AST 31 15 - 37 U/L 10/17/2013 9:50 PM CDT [facility] [place] [place] ALT 55 30 - 65 U/L 10/17/2013 9:50 PM CDT [facility] [place] [place] GFR 48(L) >=60 mL/min/1.7 3 sq meter 10/17/2013 9:50 PM CDT [employer] [place] Comment: eGFR has not been validated [...] 3 sq meter 10/17/2013 9:50 PM CDT [facility] Blood 10/17/2013 8:30 PM CDT 10/17/2013 9:10 PM CDT Linda Bazan PLASTIC OUTFITTER CHEMISTRY ORDERABLES Final Resu lt [employer] [facility] CLIA # [id number] [address] [place] [address] documented in this encounter Visit Diagnoses Diagnosis Type II or unspecified type diabetes mellitus without mention of complication, not stated as uncontrolled documented in this encounter Care Teams Principle Software Engineer Relationship Specialty Start Date End Date Adolph Pal MD [address] [place] [address] PCP - General Pediatrics 05/25/20 documented as of this encounter
--- OUTSIDE RECORDS SUMMARY | 2024-11-19 01:18 | XMS_ITS | Encounter Summary ---
Author Organization [employer] [facility] Address [address] [place] [address] Care Team Providers Care Extrusion Die Repair Manager Name Role Phone Adolph Pal MD Primary Care Provider [phone] Encounter Details Date Type Department Care Team (Latest Contact Info) Description 10/31/2013 Ancillary Orders 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 AVG GLUCOSE, A1C 346 mg/dL 10/31/2013 11:13 PM CDT [facility] Blood Collection / Unknown 10/31/2013 9:26 PM CDT 10/31/2013 9:26 PM CDT Artie Flanagan DO CHEMISTRY ORDERABLES Final Resu lt [facility] CLIA # [id number] [address] [place] [address] * (ABNORMAL) LIPID PANEL (10/31/2013 9:26 PM CDT) CHOLESTEROL 156 130 - 200 mg/dL 10/31/2013 10:03 PM CDT [facility] TRIGLYCERIDE 458(H) 30 - 200 mg/dL 10/31/2013 10:03 PM CDT [facility] HDL 22(L) 35 - 80 mg/dL 10/31/2013 10:03 PM CDT [facility] LDL CALCULATED 0 - 100 mg/dL 10/31/2013 10:03 PM CDT [facility] Comment:Calculated LDL is no t accurate when the Triglyceride value exceeds 400. Blood Collection / Unknown 10/31/2013 9:26 PM CDT 10/31/2013 9:26 PM CDT Narrative [facility] [employer] [facility] - 10/31/2013 10:03 PM CDT TOTAL CHOLESTEROL [...] Flanagan DO CHEMISTRY ORDERABLES Final Resu lt [facility] LABORATORY [facility] CLIA # [id number] [address] [address] * (ABNORMAL) COMPREHENSIVE METABOLIC PANEL (10/31/2013 9:26 PM CDT) SODIUM 135(L) 136 - 145 mmol/L 10/31/2013 10:26 PM T [facility] POTASSIUM 3.4(L) 3.5 - 5.1 mmol/L 10/31/2013 10:26 PM T [facility] LAB[facility] CHLORIDE 99 98 - 107 mmol/L 10/31/2013 10:26 PM T [facility] CO2 25 21 - 32 mmol/L 10/31/2013 10:26 PM T [facility] CALCIUM 9.4 8.5 - 10.1 mg/dL 10/31/2013 10:26 PM [facility] LABOR[facility] BUN 23(H) 7 - 18 mg/dL 10/31/2013 10:26 PM T [facility] CREATININE 1.40(H) 0.60 - 1.30 mg/dL 10/31/2013 10:26 PM T [facility]OR[facility] GLUCOSE 209(H) 74 - 106 mg/dL 10/31/2013 10:26 PM [facility] LABORATORY [facility] TOTAL PROTEIN 7.9 6.4 - 8.2 g/dL 10/31/2013 10:26 PM [facility] LABORATORY [facility] ALBUMIN 4.0 3.4 - 5.0 g/dL 10/31/2013 10:26 PM T [facility] LABOR[facility] BILIRUBIN TOTAL 0.3 0.2 - 1.0 mg/dL 10/31/2013 10:26 PM T [facility] LABOR[facility] ALKALINE PHOSPHATASE 126 50 - 136 U/L 10/31/2013 10:26 PM T [facility] AST 24 15 - 37 U/L 10/31/2013 10:26 PM [facility] LABOR[facility] ALT 42 30 - 65 U/L 10/31/2013 10:26 PM T [facility] GFR 52(L) >=60 mL/min/1.7 3 sq meter 10/31/2013 10:26 PM CDT [facility] Comment: eGFR has not been validated [...] 3 sq meter 10/31/2013 10:26 PM CDT [facility] Blood Collection / Unknown 10/31/2013 9:26 PM CDT 10/31/2013 9:26 PM CDT Artie Flanagan DO CHEMISTRY ORDERABLES Final Resu lt [facility] CLIA # [id number] [address] [place] [address] documented in this encounter Visit Diagnoses Diagnosis Type II or unspecified type diabetes mellitus without mention of complication, not stated as uncontrolled documented in this encounter Care Teams Extrusion Die Repair Manager Relationship Specialty Start Date End Date Adolph Pal MD [address] [place] [address] PCP - General Pediatrics 05/25/20 documented as of this encounter
--- OUTSIDE RECORDS SUMMARY | 2024-11-19 01:19 | XMS_ITS | Encounter Summary ---
Author Organization [facility] Address [address] [place] [address] Care Team Providers Care Director Post Name Role Phone Adolph Pal MD Primary Care Provider [phone] Encounter Details Date Type Department Care Team (Late st Contact Info) Description 07/05/2012 Ancillary Orders [facility] Laboratory Services [place] [address] [place] [address] Sick Social History Tobacco Use Types Packs/Day Years Used Date Smoking Tobacco: Never Alcohol Use Standard Drinks/Week Comments No 0 (1 standard drink = 0.6 oz pur e alcohol) Sex and Gender Information Value Date Recorded Sex Assigned at Not on file 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 Gender Identity Not on file Sexual Orientation [...] - 200 mg/dL 07/05/2012 11:28 PM T [facility] [place] TRIGLYCERIDE 226(H) 30 - 200 mg/dL 07/05/2012 11:28 PM T [facility] [place] HDL 26(L) 35 - 80 mg/dL 07/05/2012 11:28 PM CDT [facility] LDL CALCULATED 72 0 - 100 mg/dL 07/05/2012 11:28 PM CDT [facility] Blood specimen (specimen) 07/05/2012 8:46 PM CDT 07/05/2012 10:54 PM CDT Narrative [facility] - 07/05/2012 11:28 PM CDT TOTAL CHOLESTEROL [...] CHEMISTRY ORDERABLES Final Result Performing Organization Address [facility] Co de Phone Number [facility] CLIA # [id number] [address] [place] [address] * (ABNORMAL) HEMOGLOBIN A1C (07/05/2012 8:46 PM CDT) HEMOGLOBIN A1C 13.3(H) 4.5 - 6.2 % 07/06/2012 1:02 AM CDT [facility] EST. AVG GLUCOSE, A1C 335 mg/dL 07/06/2012 1:02 AM CDT [facility] Blood specimen (specimen) 07/05/2012 8:46 PM CDT 07/05/2012 10:54 PM CDT us Rosalba Villasenor MD CHEMISTRY ORDERABLES Final Result Performing Organization Address [facility]/ZIP Co de Phone Number [facility] CLIA # [id number] [address] [place] [address] * (ABNORMAL) COMPREHENSIVE METABOLIC PANEL (07/05/2012 8:46 PM CDT) SODIUM 140 136 - 145 mmol/L 07/05/2012 11:28 PM CDT [facility] POTASSIUM 4.0 3.5 - 5.1 mmol/L 07/05/2012 11:28 PM [facility] CHLORIDE 101 98 - 107 mmol/L 07/05/2012 11:28 PM [facility] CO2 31 21 - 32 mmol/L 07/05/2012 11:28 PM [facility] CALCIUM 9.4 8.5 - 10.1 mg/dL 07/05/2012 11:28 PM [facility] BUN 15 7 - 18 mg/dL 07/05/2012 11:28 PM [facility] CREATININE 1.50(H) 0.60 - 1.30 mg/dL 07/05/2012 11:28 PM [facility] GLUCOSE 122(H) 74 - 106 mg/dL 07/05/2012 11:28 PM [facility] TOTAL PROTEIN 7.5 6.4 - 8.2 g/dL 07/05/2012 11:28 PM [facility] ALBUMIN 4.1 3.4 - 5.0 g/dL 07/05/2012 11:28 PM [facility] BILIRUBIN TOTAL 0.5 0.2 - 1.0 mg/dL 07/05/2012 11:28 PM [facility] ALKALINE PHOSPHATASE 101 50 - 136 U/L 07/05/2012 11:28 PM [facility] AST 26 15 - 37 U/L 07/05/2012 11:28 PM [facility] ALT 48 30 - 65 U/L 07/05/2012 11:28 PM [facility] GFR 48(L) >=60 mL/min/1.7 3 sq meter 07/05/2012 11:28 PM [facility] GFR, 59(L) >=60 mL/min/1.7 3 sq meter 07/05/2012 11:28 PM [facility] Blood specimen (specimen) 07/05/2012 8:46 PM T 07/05/2012 10:54 PM CDT Narrative [facility] - 07/05/2012 11:28 PM CDT eGFR [...] Rosalba Villasenor MD CHEMISTRY ORDERABLES Final Result [facility] CLIA # [id number] [address] [place] [address] documented in this encounter Visit Diagnoses Diagnosis Sick Other unknown and unspecified cause of morbidity or mortality documented in this encounter Care Teams Director Post Relationship Specialty Start Date End Date Adolph Pal MD [address] [place] [id number] PCP - General Pediatrics 05/25/20 documented as of this encounter
[2024-11-19 01:31] LABS: Hematocrit 30.0 % (37-53); Hemoglobin 9.60 g/dL (11.27-16.99); Mean Corpuscular HGB Conc 32.0 g/dL (30-55); Mean Corpuscular Hemoglobin 28.4 pg (27-33); Mean Corpuscular Volume 88.8 fl (82-101); Nucleated Red Blood Cells % 0 %; Platelet Count 270 10^3/cmm (157-399); Red Blood Count 3.38 10^6/uL (3.85-5.65); White Blood Count 9.29 10^3/uL (3.29-11.43)
[2024-11-19] MEDS: insulin regular-human 100 units/1 mL 10 UNIT IVP (01:32)
[2024-11-19 01:39] LABS: Ketone (Acetest) Serum Negative (Negative)
[2024-11-19 01:52] LABS: Alanine Aminotransferase 7 U/L (0-41); Albumin Level 3.4 g/dL (3.5-5.2); Alkaline Phosphatase 150 U/L (40-130); Aspartate Amino Transferase 11 U/L (0-40); Blood Urea Nitrogen 45 mg/dL (8-23); Calcium 9.0 mg/dL (8.5-10.5); Carbon Dioxide 20 mmol/L (22-29); Chloride 90 mmol/L (98-107); Creatinine Clr Calc Pharmacy 40.1333; Globulin 3.9 g/dL (1.3-4.6); Sodium 125 mmol/L (136-145); Total Protein 7.3 g/dL (6.6-8.7)
[2024-11-19 01:54] LABS: Anion Gap 20.2 (5-19); Potassium 5.2 mmol/L (3.5-5.1)
[2024-11-19 02:11] LABS: Osmolality Calculated 316 mOsm/kg (285-295)
[2024-11-19 02:14] LABS: Glucose 895 mg/dL (65-115)
--- NOTE | 2024-11-19 02:27 | W.ED.RECABL ---
HPI - Recheck/Abnormal Lab/Rx General: Chief Complaint: Recheck/Abnormal Lab/Rx Stated Complaint: DIZZY Time Seen by Provider: 11/19/24 01:17 Source: patient and EMS Mode of arrival: EMS Limitations: no limitations History of Present Illness: Patient was at home when he called hospice and EMS due to being on the phone able to get. Patient reports he went to sit down in his bed and he kind of missed sitting completely. And he slid down off the side of the bed and was unable to get back up. Upon evaluation he was found to have a glucose that read high on the monitor. And his hospice nurse encouraged EMS to take him to the hospital for further evaluation. Patient does report he is DNR but does request treatment for general medical conditions. Patient reports he just been increasingly weak and having to urinate often. Related Data Home Medications ?Medication ?Instructions ?Recorded ?Confirmed aspirin 81 mg tablet,delayed 81 mg PO QAM 05/10/19 11/10/24 release (Adult Low Dose Aspirin) cholecalciferol (vitamin D3) 25 25 mcg PO DAILY 10/10/22 11/10/24 mcg (1,000 unit) capsule (Vitamin D3) atorvastatin 40 mg tablet 40 mg PO QPM 10/16/22 11/10/24 insulin lispro 100 unit/mL See Rx Instructions .Route .COMPLEX 06/16/23 11/10/24 subcutaneous pen (Humalog KwikPen (U-100) Insulin) nitroglycerin 0.4 mg sublingual See Rx Instructions .Route .COMPLEX 07/27/23 11/10/24 tablet carbidopa 25 mg-levodopa 100 mg 1 tab PO TID 03/01/24 11/10/24 tablet furosemide 40 mg tablet 40 mg PO DAILY 05/30/24 11/10/24 lactulose 10 gram/15 mL oral 30 ml PO BID PRN Constipation 09/23/24 11/10/24 solution (Constulose) polyethylene glycol 3350 17 17 g PO DAILY PRN Constipation 09/23/24 11/10/24 gram/dose oral powder (ClearLax) naproxen 500 mg tablet 500 mg PO BID 10/08/24 11/10/24 scopolamine base 1 mg over 3 days 1 patch topical Q3D 10/08/24 11/10/24 transdermal patch tizanidine 4 mg tablet 4 mg PO TID PRN Pain 10/08/24 11/10/24 chlorzoxazone 250 mg tablet 250 mg PO TID PRN muscle spasms 11/02/24 11/10/24 ibuprofen 600 mg tablet 600 mg PO TID PRN Pain 11/02/24 11/10/24 vikliyvdyjus-xkixsaxk-uqindt 1 tab PO DAILY 11/02/24 11/10/24 tablet (Multivitamin 50 Plus tablet) olanzapine 5 mg tablet 5 mg PO BEDTIME 11/02/24 11/02/24 insulin glargine 100 unit/mL (3 85 unit SUBCUT BID 11/09/24 11/09/24 mL) subcutaneous pen (Lantus Solostar U-100 Insulin) clopidogrel 75 mg tablet 75 mg PO 1XD 11/10/24 11/10/24 Previous Rx's ?Medication ?Instructions ?Recorded metoprolol tartrate 50 mg tablet 50 mg PO BID #180 tabs 11/10/19 finasteride 5 mg tablet 5 mg PO DAILY #90 tabs 10/11/22 isosorbide mononitrate 60 mg 60 mg PO DAILY #30 tabs 06/16/23 tablet,extended release 24 hr Allergies Allergy/AdvReac Type Severity Reaction Status Date / Time No Known Allergies Allergy Verified 11/09/24 12:54 Review of Systems General: Reports: 10 or more systems reviewed and unremarkable except in HPI and below PFSH ED PFSH: Medical History (Updated 11/19/24 @ 02:28 by Bennie Newton MD) CÉSAR (obstructive sleep apnea) Hyperlipidemia HTN (hypertension) ASHD (arteriosclerotic heart disease) Diabetes Hyperglycemia JULIET (acute kidney injury) Elbow contusion Dystonic tremor Acute on chronic renal failure Urinary tract infection Urinary retention Acute renal failure Ophthalmoplegia Parkinson disease Diabetic neuropathy associated with type 2 diabetes mellitus Essential tremor Cough Exposure to COVID-19 virus Chronic diarrhea Diabetic foot ulcer CKD (chronic kidney disease) (~10/12/20) Obesity Myocardial infarction Surgical History S/P eye surgery Status post colonoscopy (12/24/20) sigmoid polyp Status post amputation of toe S/P angioplasty with stent Family History Mother CAD (coronary artery disease) Diabetes Social History (Reviewed 11/02/24 @ 08:43 by RODNEY Lei Smoking and tobacco/nicotine status: former use of tobacco/nicotine Alcohol intake: former Substance/Drug Use: never Lives independently: Yes Household members: other Details: DOG Marital status: service: No Current occupational status: disabled 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 Const: COMMON NORMALS: patient oriented x3, alert and well nourished GENERAL APPEARANCE: well kempt and well developed HENMT: COMMON NORMALS: normocephalic, atraumatic, external ears normal and moist oral mucous membranes HEAD & SCALP: normocephalic and atraumatic EXTERNAL EAR: Yes external ears normal Eye: COMMON NORMALS: Equal, round and reactive pupils present, EOMs intact bilaterally and conjunctivae normal CONJUNCTIVA: Yes conjunctivae normal PUPIL: Yes Equal, round and reactive pupils present Neck/C-Spine: COMMON NORMALS: full ROM, no lymphadenopathy and supple Chest: CHEST: Yes Symmetrical chest wall rise and No Surgical scars present (Chest) Resp: COMMON NORMALS: normal respiratory effort, No retractions, No use of accessory muscles and clear to auscultation bilaterally AUSCULTATION: clear to auscultation bilaterally Cardio: COMMON NORMALS: regular rate, regular rhythm, S1 normal heart sound present, S2 normal heart sound present, No gallops present (Cardio), No clicks present (Cardio), No murmurs present (Cardio) and No rub (Cardio) RATE: regular rate RHYTHM: regular rhythm HEART SOUNDS: S1 normal heart sound present, S2 normal heart sound present and no murmurs PERIPHERAL PULSES: other (Radial pulses 2+ and symmetric) GI: COMMON NORMALS: Soft to palpation, non-tender and no masses INSPECTION: No abdominal distension PALPATION: Yes Soft to palpation, No Guarding due to palpation present (GI) and No Rebound tenderness present : COMMON NORMALS: Yes no CVA tenderness BLADDER/KIDNEY EXAM: Yes no CVA tenderness Back/Pelvis: COMMON NORMALS: no CVA tenderness Extremity: COMMON NORMALS: normal to inspection, full ROM, capillary refill normal and no clubbing, cyanosis or edema Neuro: COMMON NORMALS: patient oriented x3 SENSORIUM/ORIENTATION: Yes alert Psych: APPEARANCE: Yes well kempt Skin: COMMON NORMALS: no rashes or lesions noted, no wounds, turgor normal and no jaundice GENERAL SKIN EXAM: no rashes or lesions noted and turgor normal Course Vital Signs: Vital signs: Vital Signs Temperature 98.4 F 11/19/24 01:09 Pulse Rate 82 11/19/24 01:09 Respiratory Rate 18 11/19/24 01:09 Blood Pressure 200/88 11/19/24 01:09 Pulse Oximetry 96 11/19/24 01:09 MDM - Recheck/Abnormal Lab/Rx Medical Decision Making Patient with fall but no pain reported just bed. Arrives due to hypoglycemia. Was checked out by the hospice nurse he found his blood sugar to be high and sent to the hospital for further evaluation. Patient is a DNR and this has been confirmed verbally by the patient is alert and oriented x 3. On his lab review he has some anemia but also has a bit of JULIET, hyponatremia that corrects when calculated for glucose as well as elevated potassium of 5.2. Will hold off on hyperkalemic treatment as patient's EKG does not show any peaked T waves or prolonged QRS and patient will be getting insulin for his condition. Which should decrease the potassium on its own. Patient EKG was performed at 1:04 AM reviewed by me shortly thereafter with a sinus rhythm rate of 84 CO interval of 191 QRS of 91 and a QTc of [address] elevations or depressions. Case was discussed with hospitalist who agrees for admission to ICU Medical Records I reviewed the patient's medical records. Lab Data I reviewed the patient's lab results. 11/19/24 01:23 11/19/24 01:23 Laboratory Results WBC 9.29 10^3/uL (3.29-11.43) 11/19/24 01: RBC 3.38 10^6/uL (3.85-5.65) L 11/19/24 01:23 Hgb 9.60 g/dL (11.27-16.99) L 11/19/24 01:23 Hct 30.0 % (37-53) L 11/19/24 01:23 MCV 88.8 fl (82-101) 11/19/24 01: MCH 28.4 pg (27-33) 11/19/24 01:23 MCHC 32.0 g/dL (30-55) 11/19/24 01:23 RDW 13.5 % (12.1-15.1) 11/19/24 01:23 Plt Count 270 10^3/cmm (157-399) 11/19/24 01:23 MPV 10.4 fL (7.4-10.4) 11/19/24 01:23 Neut % (Auto) 83.5 % 11/19/24 01:23 Lymph % (Auto) 6.5 % 11/19/24 01:23 Sunflower % (Auto) 9.1 % 11/19/24 01:23 Eos % (Auto) 0.3 % 11/19/24 01:23 Baso % (Auto) 0.3 % 11/19/24 01:23 Neut # (Auto) 7.75 10^3/uL (1.8-7.7) H 11/19/24 01:23 Lymph # (Auto) 0.6 10^3/uL (0.8-4.8) L 11/19/24 01:23 Sunflower # (Auto) 0.9 10^3/uL (0.2-0.9) 11/19/24 01:23 Eos # (Auto) 0.0 10^3/uL (0.0-0.8) 11/19/24 01:23 Baso # (Auto) 0.0 10^3/uL (0.0-0.1) 11/19/24 01:23 Nucleated RBC % (auto) 0 % 11/19/24 01:23 Nucleated RBCs # 0.0 /100WBC 11/19/24 01:23 Sodium 125 mmol/L (136-145) L 11/19/24 01:23 Potassium 5.2 mmol/L (3.5-5.1) H 11/19/24 01:23 Chloride 90 mmol/L (98-107) L 11/19/24 01:23 Carbon Dioxide 20 mmol/L (22-29) L 11/19/24 01:23 Anion Gap 20.2 (5-19) H 11/19/24 01:23 BUN 45 mg/dL (8-23) H 11/19/24 01:23 Creatinine 1.9 mg/dL (0.7-1.2) H 11/19/24 01:23 GFR Calculation 35.3 mL/min (90-130) L 11/19/24 01:23 Glucose 895 mg/dL (65-115) H* 11/19/24 01:23 POC Glucose > 600 mg/dL (70-110) H* 11/19/24 01:13 Calculated Osmolality 316 mOsm/kg (285-295) H 11/19/24 01:23 Calcium 9.0 mg/dL (8.5-10.5) 11/19/24 01:23 Total Bilirubin 0.5 mg/dL (0.15-1.2) 11/19/24 01:23 AST 11 U/L (0-40) 11/19/24 01:23 ALT 7 U/L (0-41) 11/19/24 01:23 Alkaline Phosphatase 150 U/L (40-130) H 11/19/24 01:23 Total Protein 7.3 g/dL (6.6-8.7) 11/19/24 01:23 Albumin 3.4 g/dL (3.5-5.2) L 11/19/24 01:23 Globulin 3.9 g/dL (1.3-4.6) 11/19/24 01:23 Serum Ketones Negative (Negative) 11/19/24 01:23 All radiology interpretation(s) finalized by discharge Critical Care Time Critical Care Time: Critical Care Time: Yes Total Critical Care Time: 38 Attestation: This case had a high probability of a clinically significant, sudden, or life threatening deterioration of this patient's condition which required my full and direct attention, intervention and personal management. Discharge Plan Discharge Patient Disposition: Admitted As Inpatient Clinical Impression: Hyperosmolar hyperglycemic state (HHS) Condition: Stable Coding Level of Care Code ED [employer] Worker for Hugo Garcia
[2024-11-19] MEDS: INSULIN REGULAR IN 0.9 % NACL 100 UNIT/100 ML BAG IV (02:46)
[2024-11-19 02:57] LABS: Glucose Urine UA 3+ (Normal); Nitrate Urine Positive (Negative); Specific Gravity, Urine 1.025 (1.005-1.030)
[2024-11-19 02:59] LABS: Add Urine Microscopic? YES
[2024-11-19 03:07] LABS: UA Slide Review UA Slide Review Perf
[2024-11-19 03:16] LABS: Anion Gap 19.4 (5-19); Blood Urea Nitrogen 42 mg/dL (8-23); Calcium 9.2 mg/dL (8.5-10.5); Carbon Dioxide 22 mmol/L (22-29); Chloride 96 mmol/L (98-107); Creatinine Clr Calc Pharmacy 46.4335; Osmolality Calculated 314 mOsm/kg (285-295); Potassium 4.4 mmol/L (3.5-5.1); Sodium 133 mmol/L (136-145)
[2024-11-19 03:21] LABS: Glucose 598 mg/dL (65-115)
--- NOTE | 2024-11-19 03:23 | PM.HP ---
Providers/Chief Complaint Admitting Physician: Nick Kearney MD Primary Care Provider: CHRIS Summers Chief Complaint: DIZZY History of Present Illness Yaya Astudillo is a 69 year old male currently on hospice for CHF, history of type 2 diabetes mellitus, hypertension, hyperlipidemia who reports feeling fatigue, malaise, increased urination, no nausea, vomiting, no fevers, chills, no headache, blurry vision, abdominal pain, diarrhea, he was sent in by his hospice nurse as his blood sugar was over 800, currently he is alert oriented x 2, following all commands, he is drowsy, easily falls back asleep but answers most questions appropriately Medications/Allergies Home Medications ?Medication ?Instructions ?Recorded ?Confirmed ?Last Taken ?Type aspirin 81 mg tablet,delayed 81 mg PO QAM 05/10/19 11/10/24 11/09/24 History release (Adult Low Dose Aspirin) metoprolol tartrate 50 mg tablet 50 mg PO BID #180 tabs 11/10/19 11/10/24 11/09/24 08:00 Rx cholecalciferol (vitamin D3) 25 25 mcg PO DAILY 10/10/22 11/10/24 11/09/24 History mcg (1,000 unit) capsule (Vitamin D3) finasteride 5 mg tablet 5 mg PO DAILY #90 tabs 10/11/22 11/10/24 11/09/24 Rx atorvastatin 40 mg tablet 40 mg PO QPM 10/16/22 11/10/24 11/09/24 History insulin lispro 100 unit/mL See Rx Instructions .Route .COMPLEX 06/16/23 11/10/24 11/09/24 08:00 History subcutaneous pen (Humalog KwikPen (U-100) Insulin) isosorbide mononitrate 60 mg 60 mg PO DAILY #30 tabs 06/16/23 11/10/24 11/09/24 Rx tablet,extended release 24 hr nitroglycerin 0.4 mg sublingual See Rx Instructions .Route .COMPLEX 07/27/23 11/10/24 2 Months Ago History tablet ~09/09/24 carbidopa 25 mg-levodopa 100 mg 1 tab PO TID 03/01/24 11/10/24 11/09/24 History tablet furosemide 40 mg tablet 40 mg PO DAILY 05/30/24 11/10/24 11/09/24 History lactulose 10 gram/15 mL oral 30 ml PO BID PRN Constipation 09/23/24 11/10/24 11/09/24 History solution (Constulose) polyethylene glycol 3350 17 17 g PO DAILY PRN Constipation 09/23/24 11/10/24 Unknown History gram/dose oral powder (ClearLax) naproxen 500 mg tablet 500 mg PO BID 10/08/24 11/10/24 11/09/24 History scopolamine base 1 mg over 3 days 1 patch topical Q3D 10/08/24 11/10/24 11/01/24 History transdermal patch tizanidine 4 mg tablet 4 mg PO TID PRN Pain 10/08/24 11/10/24 2 Weeks Ago History ~10/26/24 chlorzoxazone 250 mg tablet 250 mg PO TID PRN muscle spasms 11/02/24 11/10/24 11/09/24 History ibuprofen 600 mg tablet 600 mg PO TID PRN Pain 11/02/24 11/10/24 Unknown History gbdwdtvakhyi-dlfbjaza-slqxze 1 tab PO DAILY 11/02/24 11/10/24 11/02/24 History tablet (Multivitamin 50 Plus tablet) olanzapine 5 mg tablet 5 mg PO BEDTIME 11/02/24 11/02/24 11/08/24 History insulin glargine 100 unit/mL (3 85 unit SUBCUT BID 11/09/24 11/09/24 11/09/24 History mL) subcutaneous pen (Lantus Solostar U-100 Insulin) clopidogrel 75 mg tablet 75 mg PO 1XD 11/10/24 11/10/24 11/09/24 History Allergies Allergy/AdvReac Type Severity Reaction Status Date / Time No Known Allergies Allergy Verified 11/09/24 12:54 PFSH Acute PFSH: Medical History CÉSAR (obstructive sleep apnea) Hyperlipidemia HTN (hypertension) ASHD (arteriosclerotic heart disease) Diabetes Hyperglycemia JULIET (acute kidney injury) Elbow contusion Dystonic tremor Acute on chronic renal failure Urinary tract infection Urinary retention Acute renal failure Ophthalmoplegia Parkinson disease Diabetic neuropathy associated with type 2 diabetes mellitus Essential tremor Cough Exposure to COVID-19 virus Chronic diarrhea Diabetic foot ulcer CKD (chronic kidney disease) (~10/12/20) Obesity Myocardial infarction Surgical History S/P eye surgery Status post colonoscopy (12/24/20) sigmoid polyp Status post amputation of toe S/P angioplasty with stent Family History Mother CAD (coronary artery disease) Diabetes Social History Smoking and tobacco/nicotine status: former use of tobacco/nicotine Alcohol intake: former Substance/Drug Use: never Lives independently: Yes Household members: other Details: DOG Marital status: service: No Current occupational status: disabled 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 Vitals/I&O/Wt Last Vital Signs Temp 98.4 F 11/19/24 01:09 Pulse 98 11/19/24 02:51 Resp 18 11/19/24 01:09 BP 186/65 11/19/24 02:51 Pulse Ox 91 11/19/24 02:51 11/18/24 11/18/24 11/19/24 14:59 22:59 06:59 Intake Total 0 / 0 Balance 0 / 0 Weight last 48 hrs Weight 97.522 kg Weight 90.718 kg Physical Exam Const: COMMON NORMALS: no acute distress ORIENTATION/CONSCIOUSNESS: Yes awake, Yes oriented to person and Yes oriented to place; not oriented to time HENMT: COMMON NORMALS: normocephalic HEAD & SCALP: normocephalic Neck/C-Spine: COMMON NORMALS: no JVD Resp: COMMON NORMALS: normal respiratory effort, No retractions, No use of accessory muscles and clear to auscultation bilaterally AUSCULTATION: clear to auscultation bilaterally Cardio: COMMON NORMALS: no JVD, regular rate, regular rhythm, S1 normal heart sound present and S2 normal heart sound present RATE: regular rate RHYTHM: regular rhythm HEART SOUNDS: S1 normal heart sound present and S2 normal heart sound present GI: COMMON NORMALS: Normal to inspection, nondistended, normoactive bowel sounds present, Soft to palpation and non-tender Extremity: COMMON NORMALS: no calf tenderness and no pedal edema Neuro: COMMON NORMALS: CN's II-XII intact bilaterally, moves all extremities and no focal motor deficits Psych: COMMON NORMALS: mental status grossly normal Data 11/19/24 01:23 11/19/24 02:55 A&P Assessment and plan 1. Hyperosmolar hyperglycemic state (HHS): 2. JULIET (acute kidney injury): 3. Urinary tract infection: Plan: HHS - Ketones negative, anion gap 20.2, bicarb 21, calculated osmolality 316, blood sugar over 800, with drowsiness Plan - [facility] insulin drip protocol 1. Once anion gap less than 15, serum HCO3 great than or equal to 21, BG less than or equal to 250, calculated osmolality is less than 300, mentation improved. NOTIFY Provider to initiate order for subq insulin with long-acting 2. Electrolyte Replacement: Notify physician if potassium is less than 3.5, if so will stop drip replace potassium 3. If Blood Glucose decreased by more than 100mg/dl per hour, notify provider, do not correct more than 100 mg/dL 4.calculated osmolality is less than 300, mentation improved, blood sugar less than 250, cognitive status improved, likely HHS resolved 6. If serum corrected sodium is greater than or equal to 135, switch to hypotonic saline Plan - Patient's corrected serum sodium is 141, will switch to hypotonic saline/half-normal saline - Once blood sugar drops below 250, will switch to D5 half-normal saline - Continue insulin drip protocol as above - Monitor BMP every 4 hours - Monitor mentation Urinary tract infection, Rocephin History of CHF, monitor fluid overload PDMP PDMP Reviewed: Not Reviewed Attestations Medical Necessity Statement*: Patient requires hospitalization for HHS, inpatient, greater than 2 midnights Coding Level of Care Code Critical Care >/= 30 minutes Critical care time (in minutes): 45 The high probability of a clinically significant, sudden or life threatening deterioration, as referenced in this documentation, required my full and direct attention, intervention and personal management. The critical care time shown is in addition to time spent performing any reported separately billable procedures and includes the following: [x] Data and vital sign review and interpretation [x] Patient assessment, examination and intervention [x] Medication orders and management [x] Patient/Family updates as able [x] Care Coordination and Documentation. Diagnoses Hyperosmolar hyperglycemic state (HHS) E11.00 JULIET (acute kidney injury) N17.9 Urinary tract infection N30.00
--- NOTE | 2024-11-19 03:28 | PC.NURSE ---
Report called to Emelina WALLACE in ICU, all questions and concerns were addressed at time of report.
--- NOTE | 2024-11-19 03:29 | PC.NURSE ---
Dr Newton was made aware of last charted blood pressure. No new orders placed at this time.
[2024-11-19 04:29] LABS: ABG PCO2 34.1 mmHg (35-45); ABG PH Result 7.45 (7.35-7.45); Arterial Blood Gas Hematocrit 31.6 % (42-52); Blood Gas Operator Identificat SAM; Blood Gas Sample Site Brachial, left; Blood Gas Sample Type Arterial; HCO3 ABG 23.7 mmol/L (22-26); PO2 ABG 55.7 mmHg (80.0-100.0); PO2 FiO2 Ratio Arterial Blood 265
[2024-11-19] MEDS: cefTRIAXone 1,000 mg SDV 1000 MG IVP (04:34)
[2024-11-19] MEDS: pantoprazole 40 mg SDV IVP (04:34)
[2024-11-19 04:43] LABS: Estmated Average Glucose 235; Hemoglobin A1C 9.8 % (4.0-6.0)
[2024-11-19 04:49] LABS: Lactic Sepsis W/Reflex 1.8 mmol/L (0.5-2.2)
--- NOTE | 2024-11-19 04:55 | PC.NURSE ---
Pt arrived from ED. Orders acknowledged and initial assessment completed. Pt oriented to self and place. Pt stated it was 2014 initially, then corrected to 1955. This nurse reoriented pt that it is 2024. Dr. Kearney contacted to verify some of the orders. Insulin drip had a specific protocol entered by ER physician. Dr Kearney informed of protocol and stated that was the protocol he wanted nursing to follow. Fluid orders were also verified. Pt has right arm wrapped from above the elbow to the fingers. Pt confused and stated this was from a cyst removal . Dr Kearney stated this was from a carpel tunnel surgery Dr. Kidd performed recently. Caio stated that the wrap needed to remain on the arm per Marti's orders.
[2024-11-19 05:00] LABS: NT Pro B Type Natriuretic Pept 1171 pg/mL (0-125); Procalcitonin 0.32 ng/mL (0-0.5); Thyroid Stimulating Hormone 0.66 uIU/mL (0.27-4.20)
[2024-11-19 05:14] LABS: Cholesterol 116 mg/dL (0-200); HDL Cholesterol 27 mg/dL (60-100); Triglycerides 195 mg/dL (0-150)
[2024-11-19] MEDS: morphine 4 mg/mL SDV 1 mL 2 MG IVP ×2 (05:53→15:46)
--- NOTE | 2024-11-19 06:46 | CTR_ITS ---
PROCEDURE INFORMATION: Exam: CT Abdomen And Pelvis Without Contrast Exam date and time: 11/19/2024 7:13 AM Age: 69 years old Clinical indication: Fever; Additional info: UTI, fever TECHNIQUE: Imaging protocol: Computed tomography of the abdomen and pelvis without contrast. Radiation optimization: All CT scans at this facility use at least one of these dose optimization techniques: automated exposure control; mA and/or kV adjustment per patient size (includes targeted exams where dose is matched to clinical indication); or iterative reconstruction. COMPARISON: CT abdomen pelvis con [id number] 10/09/2022 7:08 PM RADIATION DOSE METRICS: Total DLP (mGy-cm): 1083.25 FINDINGS: Heart: Cardiomegaly is seen. Coronary arteries: Coronary calcifications are seen. Liver: The liver measures 19.8 cm in length. Gallbladder and biliary ducts: Multiple gallstones without evidence of cholecystistis. Pancreas: Normal. No ductal dilation. Spleen: The spleen is enlarged measuring 12.6 cm. Adrenal glands: Normal. No mass. Kidneys and ureters: Left renal 4 mm stone. Nonspecific mild bilateral perinephric stranding changes. No hydronephrosis. No obstructing ureteral stone. Stomach and bowel: No small bowel loop dilatation. Appendix: Appendix is normal. Intraperitoneal space: Unremarkable. No free air. No significant fluid collection. Vasculature: Mild calcified atherosclerotic changes are seen throughout the abdominal aorta. Lymph nodes: Unremarkable. No enlarged lymph nodes. Urinary bladder: Salazar in the bladder. Reproductive: Unremarkable as visualized. Bones/joints: Unremarkable. No acute fracture. Soft tissues: Unremarkable. CT/CT abdomen pelvis con [id number] IMPRESSION: 1. Left renal 4 mm stone. 2. Nonspecific mild bilateral perinephric stranding changes. Finding is nonspecific. UTI versus nephrotic syndrome. Clinical correlation is advised. 3. Coronary calcifications. 4. Cardiomegaly. 5. Mild calcified atherosclerotic changes are seen throughout the abdominal aorta. 6. Hepatosplenomegaly 7. Multiple gallstones without evidence of cholecystistis.
[2024-11-19 07:28] LABS: Anion Gap 15.8 (5-19); Blood Urea Nitrogen 34 mg/dL (8-23); Calcium 8.5 mg/dL (8.5-10.5); Carbon Dioxide 22 mmol/L (22-29); Chloride 101 mmol/L (98-107); Creatinine Clr Calc Pharmacy 57.2784; Glucose 389 mg/dL (65-115); Osmolality Calculated 304 mOsm/kg (285-295); Potassium 3.8 mmol/L (3.5-5.1); Sodium 135 mmol/L (136-145)
[2024-11-19] MEDS: carbidopa-levodopa 25-100mg Tablet 1 EACH PO ×3 (08:26→20:16)
[2024-11-19] MEDS: insulin glargine 100 units/1 mL 60 UNIT SUBCUT (12:26)
[2024-11-19] MEDS: hyDRALAzine 20 mg/mL INJ 1 mL 10 MG IVP (13:08)
--- NOTE | 2024-11-19 17:44 | PM.MISC ---
Miscellaneous Note Purpose of Documentation: Overnight labs and H&P reviewed. Patient admitted for [facility]. Anion gap is now closed. Transition to Lantus and sliding scale insulin. Continue ceftriaxone 1 g IV every 24 hours for UTI.transfer out of ICU to [facility]
--- NOTE | 2024-11-19 17:50 | PC.NURSE ---
Spoke with Dr. Maciel regarding 10 units of IVP insulin. Patient had just received 14Units sliding scale. Dr. Maciel gave verbal to stop IVP
[2024-11-19] MEDS: ondansetron 2 mg/ML SDV 2 mL 4 MG IVP (18:13)
[2024-11-20] VITALS (40 sets, daily range): BP systolic 113–201; BP diastolic 52–102; PULSE 67–98; RESP 0–27; TEMP 36.5–38.7; O2SAT 91–99
[2024-11-20] MEDS: cefTRIAXone 1,000 mg SDV 1000 MG IVP (04:15)
[2024-11-20] MEDS: pantoprazole 40 mg SDV IVP (04:16)
[2024-11-20] MEDS: hyDRALAzine 20 mg/mL INJ 1 mL 10 MG IVP ×2 (04:41→22:40)
[2024-11-20 05:24] LABS: Hematocrit 32.6 % (37-53); Hemoglobin 10.50 g/dL (11.27-16.99); Mean Corpuscular HGB Conc 32.2 g/dL (30-55); Mean Corpuscular Hemoglobin 28.3 pg (27-33); Mean Corpuscular Volume 87.9 fl (82-101); Nucleated Red Blood Cells % 0 %; Platelet Count 302 10^3/cmm (157-399); Red Blood Count 3.71 10^6/uL (3.85-5.65); White Blood Count 9.36 10^3/uL (3.29-11.43)
[2024-11-20 05:52] LABS: Alanine Aminotransferase < 5 U/L (0-41); Albumin Level 3.4 g/dL (3.5-5.2); Alkaline Phosphatase 110 U/L (40-130); Aspartate Amino Transferase 13 U/L (0-40); Blood Urea Nitrogen 26 mg/dL (8-23); Calcium 9.5 mg/dL (8.5-10.5); Carbon Dioxide 23 mmol/L (22-29); Chloride 101 mmol/L (98-107); Creatinine Clr Calc Pharmacy 53.4598; Globulin 4.1 g/dL (1.3-4.6); Glucose 169 mg/dL (65-115); Osmolality Calculated 293 mOsm/kg (285-295); Sodium 137 mmol/L (136-145); Total Protein 7.5 g/dL (6.6-8.7)
[2024-11-20 05:58] LABS: Anion Gap 16.9 (5-19); Potassium 3.9 mmol/L (3.5-5.1)
[2024-11-20] MEDS: carbidopa-levodopa 25-100mg Tablet 1 EACH PO ×3 (08:01→20:50)
--- NOTE | 2024-11-20 09:30 | PM.PN ---
Subjective Subjective: Tmax 102 Fahrenheit overnight. Reports generalized weakness. Medications: Reviewed: Yes Vitals/I&O/Wt Last Vital Signs Temp 100.4 F H 11/20/24 08:00 Pulse 89 11/20/24 08:00 Resp 14 11/20/24 08:00 BP 179/77 11/20/24 08:00 Pulse Ox 95 11/20/24 08:00 O2 Del Method Nasal Cannula 11/20/24 08:00 O2 Flow Rate 2 11/20/24 08:00 11/19/24 11/20/24 11/20/24 22:59 06:59 14:59 Intake Total 440 / 1635.809 400 / 400 Output Total 600 / 1350 / 2014 Balance -160 / 285.809 -665 / -379.191 400 / 400 Weight last 48 hrs Weight 97.2 kg Weight 100.698 kg Weight 97.522 kg Weight 90.718 kg Physical Exam Narrative: General: No acute distress, AO x3 HEENT: PERRLA, pupils bilaterally equal and reactive, pallors not present Chest: Normal vesicular breath sounds, no added sounds, equal good air entry bilaterally CVS: S1-S2 regular, no murmurs, no tachycardia, no gallops, no rubs Abdomen: Soft, nontender, no organomegaly, bowel sounds present Neuro: No focal deficits, no facial deformity, AO x3, power 5/5 in all limbs Urinary Catheter Management: Salazar: Cath Placed During This Visit: yes Reason for Continuing Indwelling Catheter: Accurate Measurement of Urinary Output in Critically Ill Patients Urinary Catheter Date of Insertion: 11/19/24 Urinary Catheter Time of Insertion: 05:01 Data 11/20/24 03:47 11/20/24 03:47 Micro: Microbiology 11/19/24 04:10 Blood Culture - Preliminary Blood NEGATIVE TO DATE 11/19/24 04:13 Blood Culture - Preliminary Blood NEGATIVE TO DATE A&P Assessment and plan 1. Hyperosmolar hyperglycemic state (HHS): 2. JULIET (acute kidney injury): 3. Urinary tract infection: Plan: HHS - Ketones negative, anion gap 20.2, bicarb 21, calculated osmolality 316, blood sugar over 800, with drowsiness Plan - [facility] insulin drip protocol 1. Once anion gap less than 15, serum HCO3 great than or equal to 21, BG less than or equal to 250, calculated osmolality is less than 300, mentation improved. NOTIFY Provider to initiate order for subq insulin with long-acting 2. Electrolyte Replacement: Notify physician if potassium is less than 3.5, if so will stop drip replace potassium 3. If Blood Glucose decreased by more than 100mg/dl per hour, notify provider, do not correct more than 100 mg/dL 4.calculated osmolality is less than 300, mentation improved, blood sugar less than 250, cognitive status improved, likely HHS resolved 6. If serum corrected sodium is greater than or equal to 135, switch to hypotonic saline Plan - Patient's corrected serum sodium is 141, will switch to hypotonic saline/half-normal saline - Once blood sugar drops below 250, will switch to D5 half-normal saline - Continue insulin drip protocol as above - Monitor BMP every 4 hours - Monitor mentation Urinary tract infection, Rocephin History of CHF, monitor fluid overload November 20, 2024 HHS remains resolved. Fingersticks ranging between 294-322 Since discontinuing insulin drip. Currently on Lantus of 60 mg daily. Will increase dose to 60 mg twice daily. At home patient takes Lantus 85 twice daily. Patient is also on additional sliding scale insulin with meals at this present time. Overnight spiked a temperature up to 102 Fahrenheit. Infectious evaluation so far has included a chest x-ray without any infiltrates. CT of the abdomen and pelvis showing nonspecific bilateral perinephric stranding. Multiple gallstones without any acute evidence of cholecystitis. LFTs are within normal range. Urine analysis with positive nitrate, negative leukocyte esterase 11-20 WBCs and 4+ bacteria. Concerning for UTI as a potential source. Patient has been started on empiric antibiotic therapy with ceftriaxone 1 g IV every 24 hours since admission. Reviewed prior urine cultures which have shown Citrobacter and Serratia UTI from 2022. Potentially patient may have ESBL organisms as the culprit. Discontinue ceftriaxone, change therapy to meropenem 1 g IV every 8 hours while pending final results from urine culture. Blood cultures so far negative to date. Additionally noted to have poor blood pressure control. Systolic ranging between 170-200 systolic. Add amlodipine 5 mg p.o. daily. Continue Imdur 60 mg p.o. daily, continue metoprolol 50 mg twice daily, as needed hydralazine for SBP greater than 160 [address] bed on med/surg to physically transfer out of ICU DVT prophylaxis: Lovenox 40 mg subcutaneously every 24 hours DNR/DNI Disposition: Patient to return to home hospice when optimized. He desires to continue medical therapy at this time for his acute infectious issues. PDMP PDMP Reviewed: Not Reviewed Attestations Medical Necessity Statement*: Continued admission for febrile state, UTI needing IV antibiotics Coding Level of Care Code Acute Code for Chg Fwd Diagnoses Hyperosmolar hyperglycemic state (HHS) E11.00 JULIET (acute kidney injury) N17.9 Urinary tract infection N30.00 Hematuria presence: without hematuria Urinary tract infection type: acute cystitis
[2024-11-20] MEDS: meropenem 1,000 mg SDV 1000 MG IVP ×2 (10:09→20:51)
[2024-11-20] MEDS: insulin glargine 100 units/1 mL 60 UNIT SUBCUT ×2 (10:18→22:06)
--- NOTE | 2024-11-20 16:18 | PC.NURSE ---
Attempted to have patient sit at side of bed with goal to stand or ambulate. Patient unable to assist this nurse with sitting to side of bed. Second nurse obtained and patient declined another attempt. Bedding changed and patient made more comfortable in bed.
[2024-11-21] VITALS (44 sets, daily range): BP systolic 112–186; BP diastolic 51–79; PULSE 67–97; RESP 0–24; TEMP 36.7–38.7; O2SAT 88–99
--- NOTE | 2024-11-21 00:30 | PC.NURSE ---
Blood pressure: 0000 blood pressure 200/107, retake at 0015 was 173/76. Notified Dr. Kearney, new telephone order for 10 mg amlodipine PO Q24H, updated previously scheduled amlodipine order in JUN to reflect new dose.
[2024-11-21] MEDS: pantoprazole 40 mg SDV IVP (03:28)
[2024-11-21 05:36] LABS: Hematocrit 27.9 % (37-53); Hemoglobin 9.00 g/dL (11.27-16.99); Mean Corpuscular HGB Conc 32.3 g/dL (30-55); Mean Corpuscular Hemoglobin 28.0 pg (27-33); Mean Corpuscular Volume 86.6 fl (82-101); Nucleated Red Blood Cells % 0 %; Platelet Count 251 10^3/cmm (157-399); Red Blood Count 3.22 10^6/uL (3.85-5.65); White Blood Count 6.45 10^3/uL (3.29-11.43)
[2024-11-21 06:08] LABS: Alanine Aminotransferase < 5 U/L (0-41); Albumin Level 3.1 g/dL (3.5-5.2); Alkaline Phosphatase 90 U/L (40-130); Anion Gap 15.7 (5-19); Aspartate Amino Transferase 12 U/L (0-40); Blood Urea Nitrogen 32 mg/dL (8-23); Calcium 9.0 mg/dL (8.5-10.5); Carbon Dioxide 24 mmol/L (22-29); Chloride 106 mmol/L (98-107); Creatinine Clr Calc Pharmacy 46.4516; Globulin 3.5 g/dL (1.3-4.6); Glucose 139 mg/dL (65-115); Osmolality Calculated 303 mOsm/kg (285-295); Potassium 3.7 mmol/L (3.5-5.1); Sodium 142 mmol/L (136-145); Total Protein 6.6 g/dL (6.6-8.7)
[2024-11-21] MEDS: carbidopa-levodopa 25-100mg Tablet 1 EACH PO ×3 (09:45→20:15)
[2024-11-21] MEDS: meropenem 1,000 mg SDV 1000 MG IVP (09:46)
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
[2024-11-21] MEDS: insulin glargine 100 units/1 mL 60 UNIT SUBCUT ×2 (11:33→22:14)
--- NOTE | 2024-11-21 11:46 | P.DS_ITS ---
Discharge Providers Date of Admission: 11/19/24 02:28 Date of Discharge: November 21, 2024 Attending Provider at Admission: Nick Kearney MD Attending Provider at Discharge: Antonio Villalobos MD Primary Care Provider: CHRIS Summers Diagnoses at Discharge Discharge Diagnosis 1. Hyperosmolar hyperglycemic state (HHS): 2. JULIET (acute kidney injury): 3. Urinary tract infection: Reason for Visit Reason for Visit: DIZZY Brief History: 69 year old male presenting with HHS, AM S and UTI. Has been home on hospice and is planning to discharge to a hospice facility. Hospital Course Hospital Course HHS - Ketones negative, anion gap 20.2, bicarb 21, calculated osmolality 316, blood sugar over 800, with drowsiness on admission - responded to insulin drip, now able to transition to home insulin. - initiate subq insulin on D/C Electrolyte Replacement: - now corrected, off insulin drip. Urinary tract infection - initially started on Rocephin, advanced to meropenem for concern for MDR. - urine cultures show Enterobacter cloacae, sensitive to multiple abx - downgrade to oral cephalosporins for D/C History of CHF, monitor fluid overload - cont. oral lasix HTN - cont. home regimen, added amlodipine 5 mg daily this admission Disposition - discharge planning for hospice facility for today. Physical Exam Const: COMMON NORMALS: no acute distress and patient oriented x3 HENMT: COMMON NORMALS: normocephalic and atraumatic HEAD & SCALP: normocephalic and atraumatic Eye: COMMON NORMALS: Equal, round and reactive pupils present PUPIL: Yes Equal, round and reactive pupils present Neck/C-Spine: COMMON NORMALS: full ROM and no lymphadenopathy Lymph: LYMPHATIC: no lymphadenopathy noted Chest: COMMONS NORMALS: normal inspection of the chest Resp: COMMON NORMALS: normal respiratory effort, No retractions and clear to auscultation bilaterally AUSCULTATION: clear to auscultation bilaterally Cardio: COMMON NORMALS: regular rate, regular rhythm, No gallops present (Cardio), No clicks present (Cardio) and No rub (Cardio) RATE: regular rate RHYTHM: regular rhythm GI: COMMON NORMALS: Soft to palpation, non-tender and no masses PALPATION: Yes Soft to palpation Neuro: COMMON NORMALS: patient oriented x3, moves all extremities, no focal motor deficits and no sensory deficits noted Urinary Catheter Management: Salazar: Cath Placed During This Visit: yes Reason for Continuing Indwelling Catheter: Accurate Measurement of Urinary Output in Critically Ill Patients Urinary Catheter Date of Insertion: 11/19/24 Urinary Catheter Time of Insertion: 05:01 Discharge Data Studies Completed and Pending Completed Studies During Hospitalization Category Date Time Status CT abdomen pelvis manuel con [id number] Stat Cat Scan 11/19/24 06:46 Completed Pending at discharge Category Date Time Status Blood Culture Stat Lab 11/19/24 04:10 Results Osmolality Serum Stat Lab 11/19/24 01:23 Received Osmolality Urine Stat Lab 11/19/24 01:23 Received Radiology Impressions Abdomen/Pelvis CT 11/19/24 06:46 IMPRESSION: 1. Left renal 4 mm stone. 2. Nonspecific mild bilateral perinephric stranding changes. Finding is nonspecific. UTI versus nephrotic syndrome. Clinical correlation is advised. 3. Coronary calcifications. 4. Cardiomegaly. 5. Mild calcified atherosclerotic changes are seen throughout the abdominal aorta. 6. Hepatosplenomegaly 7. Multiple gallstones without evidence of cholecystistis. Laboratory Results WBC 6.45 10^3/uL (3.29-11.43) 11/21/24 03:55 RBC 3.22 10^6/uL (3.85-5.65) L 11/21/24 03:55 Hgb 9.00 g/dL (11.27-16.99) L 11/21/24 03:55 Hct 27.9 % (37-53) L 11/21/24 03:55 MCV 86.6 fl (82-101) 11/21/24 03:55 MCH 28.0 pg (27-33) 11/21/24 03:55 MCHC 32.3 g/dL (30-55) 11/21/24 03:55 RDW 13.7 % (12.1-15.1) 11/21/24 03:55 Plt Count 251 10^3/cmm (157-399) 11/21/24 03:55 MPV 10.2 fL (7.4-10.4) 11/21/24 03:55 Neut % (Auto) 76.3 % 11/21/24 03:55 Lymph % (Auto) 10.5 % 11/21/24 03:55 Bradley % (Auto) 12.1 % 11/21/24 03:55 Eos % (Auto) 0.3 % 11/21/24 03:55 Baso % (Auto) 0.5 % 11/21/24 03:55 Neut # (Auto) 4.92 10^3/uL (1.8-7.7) 11/21/24 03:55 Lymph # (Auto) 0.7 10^3/uL (0.8-4.8) L 11/21/24 03:55 Bradley # (Auto) 0.8 10^3/uL (0.2-0.9) 11/21/24 03:55 Eos # (Auto) 0.0 10^3/uL (0.0-0.8) 11/21/24 03:55 Baso # (Auto) 0.0 10^3/uL (0.0-0.1) 11/21/24 03:55 Nucleated RBC % (auto) 0 % 11/21/24 03:55 Nucleated RBCs # 0.0 /100WBC 11/21/24 03:55 Specimen Type Arterial 11/19/24 04:18 Sample Site Brachial, left 11/19/24 04:18 ABG pH 7.45 (7.35-7.45) 11/19/24 04:18 ABG pCO2 34.1 mmHg (35-45) L 11/19/24 04:18 ABG pO2 55.7 mmHg (80.0-100.0) L 11/19/24 04:18 ABG PO2/FiO2 Ratio 265 11/19/24 04:18 ABG HCO3 23.7 mmol/L (22-26) 11/19/24 04:18 ABG Base Excess 0.0 mmol/L (-2.0-2.0) 11/19/24 04:18 Pete Test N/a 11/19/24 04:18 Hematocrit 31.6 % (42-52) L 11/19/24 04:18 O2 Delivery Device None 11/19/24 04:18 FiO2 21.0 % 11/19/24 04:18 Electroencephalogram Technologist ID Dagoberto 11/19/24 04:18 Sodium 142 mmol/L (136-145) 11/21/24 03:55 Potassium 3.7 mmol/L (3.5-5.1) 11/21/24 03:55 Chloride 106 mmol/L (98-107) 11/21/24 03:55 Carbon Dioxide 24 mmol/L (22-29) 11/21/24 03:55 Anion Gap 15.7 (5-19) 11/21/24 03:55 BUN 32 mg/dL (8-23) H 11/21/24 03:55 Creatinine 1.7 mg/dL (0.7-1.2) H 11/21/24 03:55 GFR Calculation 40.2 mL/min (90-130) L 11/21/24 03:55 Glucose 139 mg/dL (65-115) H 11/21/24 03:55 POC Glucose 261 mg/dL (70-110) H 11/21/24 11:15 Estimat Average Glucose 235 11/19/24 04:13 Hemoglobin A1c 9.8 % (4.0-6.0) H 11/19/24 04:13 Calculated Osmolality 303 mOsm/kg (285-295) H 11/21/24 03:55 Lactic Acid 1.8 mmol/L (0.5-2.2) 11/19/24 04:13 Calcium 9.0 mg/dL (8.5-10.5) 11/21/24 03:55 Phosphorus 2.7 mg/dL (2.5-4.5) 11/19/24 02:55 Total Bilirubin 0.3 mg/dL (0.15-1.2) 11/21/24 03:55 AST 12 U/L (0-40) 11/21/24 03:55 ALT < 5 U/L (0-41) 11/21/24 03:55 Alkaline Phosphatase 90 U/L (40-130) 11/21/24 03:55 C-Reactive Protein 117.8 mg/L (0.0-4.9) H 11/19/24 04:13 NT-Pro-B Natriuret Pep 1171 pg/mL (0-125) H 11/19/24 04:13 Total Protein 6.6 g/dL (6.6-8.7) 11/21/24 03:55 Albumin 3.1 g/dL (3.5-5.2) L 11/21/24 03:55 Globulin 3.5 g/dL (1.3-4.6) 11/21/24 03:55 Triglycerides 195 mg/dL (0-150) H 11/19/24 04:13 Cholesterol 116 mg/dL (0-200) 11/19/24 04:13 LDL Cholesterol, Calc 50 mg/dL (50-129) 11/19/24 04:13 HDL Cholesterol 27 mg/dL (60-100) L 11/19/24 04:13 LDL/HDL Ratio 1.85 RATIO (0.00-3.22) 11/19/24 04:13 Cholesterol/HDL Ratio 4.30 mg/dL (1.0-5.00) 11/19/24 04:13 Procalcitonin 0.32 ng/mL (0-0.5) 11/19/24 04:13 TSH 0.66 uIU/mL (0.27-4.20) 11/19/24 04:13 Urine Color Yellow (Yellow) 11/19/24 01:15 Urine Appearance Cloudy (CLEAR) A 11/19/24 01:15 Urine pH 5.0 (5-7) 11/19/24 01:15 Ur Specific Lorenzo 1.025 (1.005-1.030) 11/19/24 01:15 Urine Protein 1+ (Negative) A 11/19/24 01:15 Urine Glucose (UA) 3+ (Normal) H 11/19/24 01:15 Urine Ketones Trace (Negative) 11/19/24 01:15 Urine Blood Trace (Negative) A 11/19/24 01:15 Urine Nitrate Positive (Negative) A 11/19/24 01:15 Urine Bilirubin Negative (Negative) 11/19/24 01:15 Urine Urobilinogen 0.2 mg/dL (Negative) 11/19/24 01:15 Ur Leukocyte Esterase Negative (Negative) 11/19/24 01:15 Urine RBC 0-2 /hpf (0-2) 11/19/24 01:15 Urine WBC 11-20 /hpf (0-5) H 11/19/24 01:15 Ur Squamous Epith Cells 0-5 /hpf (0-5) 11/19/24 01:15 Amorphous Sediment Not Reportable 11/19/24 01:15 Urine Bacteria 4+ /hpf (NONE) H 11/19/24 01:15 Hyaline Casts 0.40 /lpf 11/19/24 01:15 Other Casts Wbc cast /lpf 11/19/24 01:15 Serum Ketones Negative (Negative) 11/19/24 01:23 Vitals Last Vital Signs Temp 100 F H 11/21/24 08:30 Pulse 75 11/21/24 10:00 Resp 22 H 11/21/24 10:00 BP 112/58 11/21/24 10:00 Pulse Ox 98 11/21/24 10:00 O2 Del Method Nasal Cannula 11/21/24 08:30 O2 Flow Rate 2 11/21/24 08:30 Discharge Plan Discharge Patient Disposition: Home Condition: Stable Prescriptions: New amlodipine 5 mg Tablet 10 mg PO DAILY Qty: 30 2RF cefdinir 300 mg Capsule 300 mg PO BID Qty: 14 0RF Continued aspirin [Adult Low Dose Aspirin] 81 mg tablet,delayed release (DR/EC) 81 mg PO QAM atorvastatin 40 mg tablet 40 mg PO QPM metoprolol tartrate 50 mg tablet 50 mg PO BID Qty: 180 3RF nitroglycerin 0.4 mg tablet, sublingual See Rx Instructions .ROUTE .COMPLEX Rx Instructions: DISSOLVE ONE TABLET UNDER THE TONGUE EVERY 5 MINUTES NEEDED FOR CHEST PAIN. DO NOT EXCEED A TOTAL OF 3 DOSES IN 15 MINUTES - REPORT TO THE EMERGENCY ROOM IF 3 DOSES ARE NEEDED TO CONTROL PAIN furosemide 40 mg tablet 40 mg PO DAILY insulin glargine [Lantus Solostar U-100 Insulin] 100 unit/mL (3 mL) Insulin Pen 85 unit SUBCUT BID clopidogrel 75 mg tablet 75 mg PO DAILY tizanidine 4 mg tablet 4 mg PO TID PRN (Reason: Pain) scopolamine base 1 mg over 3 days patch 3 day 1 patch topical Q3D naproxen 500 mg tablet 500 mg PO BID hydrocodone-acetaminophen 5-325 mg tablet 1 tab PO Q6H PRN (Reason: Pain) tamsulosin 0.4 mg capsule 0.4 mg PO DAILY ondansetron 4 mg tablet,disintegrating 4 mg PO Q8H PRN (Reason: Nausea And Vomiting) potassium chloride 20 mEq tablet extended release 20 meq PO DAILY cholecalciferol (vitamin D3) [Vitamin D3] 25 mcg (1,000 unit) Capsule 25 mcg PO DAILY finasteride 5 mg Tablet 5 mg PO DAILY Qty: 90 3RF insulin lispro [Humalog KwikPen Insulin] 100 unit/mL insulin pen See Rx Instructions .ROUTE .COMPLEX Rx Instructions: TAKE 15 UNITS DAILY. IF BG OVER 200, TAKE 25 UNITS. isosorbide mononitrate 60 mg tablet extended release 24 hr 60 mg PO DAILY Qty: 30 0RF carbidopa-levodopa 25-100 mg tablet 1 tab PO TID Rx Instructions: TAKE 1 TABLET BY MOUTH IN THE MORNING AND 1 TAB AT NOON AND 1 TAB AT 4 IN THE EVENING. polyethylene glycol 3350 [ClearLax] 17 gram/dose powder 17 g PO DAILY PRN (Reason: Constipation) lactulose [Constulose] 10 gram/15 mL solution 30 ml PO BID PRN (Reason: Constipation) olanzapine 5 mg tablet 5 mg PO BEDTIME chlorzoxazone 250 mg tablet 250 mg PO TID PRN (Reason: muscle spasms) ibuprofen 600 mg Tablet 600 mg PO TID PRN (Reason: Pain) Multivitamin 50 Plus Tablet 1 tab PO DAILY Discharge Order = DC NOW: Discharge Order (Routine); Ordered 11/21/24 Ordered By: Antonio Villalobos Referrals: Roxana James FNP [Primary Care Provider, Unknown] Discharge Diet: Advance as tolerated Discharge Activity: Resume usual activity Patient Instructions: Opioid Safety, Patient Portal & Grazyna Instructions Discharge Attestations Time Spent in Discharge Care*: greater than 30 min Specific Discharge Activities: educating patient, discussing with pillowcase turner/social workers/dc planners, documenting/other paperwork and evaluating patient/reviewing data Quality Metrics Clinical Quality Measures [ No reported AMI, CVA or VTE this stay] Coding Level of Care Code Acute Code for Chg Fwd Diagnoses Hyperosmolar hyperglycemic state (HHS) E11.00 JULIET (acute kidney injury) N17.9 Urinary tract infection N30.00 Hematuria presence: without hematuria Urinary tract infection type: acute cystitis
--- NOTE | 2024-11-21 15:54 | PC.SOCIAL ---
IMM Update Updated pt on IMM. No questions voiced. Provided pt a copy. Initialed, dated, & timed a copy & placed in chart.
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
--- NOTE | 2024-11-21 20:39 | PC.NURSE ---
Transfer to Med-Surg: patient transferred to med surg unit, receiving staff at bedside. All patient belongings with them at time of transfer.
[2024-11-22] VITALS (9 sets, daily range): BP systolic 104–182; BP diastolic 65–78; PULSE 69–93; RESP 16–18; TEMP 36.7–39.4; O2SAT 93–97
[2024-11-22] MEDS: pantoprazole 40 mg SDV IVP (04:52)
[2024-11-22] MEDS: insulin glargine 100 units/1 mL 60 UNIT SUBCUT ×2 (08:01→23:08)
[2024-11-22] MEDS: carbidopa-levodopa 25-100mg Tablet 1 EACH PO ×3 (08:02→21:00)
--- NOTE | 2024-11-22 12:56 | P.PN_ITS ---
Subjective 2 Subjective: Awaiting placement. Vitals/I&O/Wt Last Vital Signs Temp 100.2 F H 11/22/24 11:36 Pulse 76 11/22/24 11:36 Resp 18 11/22/24 11:36 BP 126/70 11/22/24 11:36 Pulse Ox 96 11/22/24 11:36 O2 Del Method Room Air 11/22/24 11:36 O2 Flow Rate 2 11/22/24 04:00 11/21/24 11/22/24 11/22/24 22:59 06:59 14:59 Intake Total 220 / 460 240 / 240 Output Total 425 / 575 2099 / 2099 Balance -205 / -115 -1860 / -1860 Weight last 48 hrs Weight 101.321 kg Weight 97.6 kg Physical Exam 2 Const: COMMON NORMALS: no acute distress and patient oriented x3 HENMT: COMMON NORMALS: normocephalic and atraumatic HEAD & SCALP: n ormocephalic and atraumatic Eye: COMMON NORMALS: Equal, round and reactive pupils present PUPIL: Yes Equal, round and reactive pupils present Neck/C-Spine: COMMON NORMALS: full ROM and no lymphadenopathy Lymph: LYMPHATIC: no lymphadenopathy noted Chest: COMMONS NORMALS: normal inspection of the chest Resp: COMMON NORMALS: normal respiratory effort, No retractions and clear to auscultation bilaterally AUSCULTATION: clear to auscultation bilaterally Cardio: COMMON NORMALS: regular rate, regular rhythm, No gallops present (Cardio), No clicks present (Cardio) and No rub (Cardio) RATE: regular rate RHYTHM: regular rhythm GI: COMMON NORMALS: Soft to palpation, non-tender and no masses PALPATION: Yes Soft to palpation Neuro: COMMON NORMALS: patient oriented x3, moves all extremities, no focal motor deficits and no sensory deficits noted Urinary Catheter Management: Salazar: Cath Placed During This Visit: yes Reason for Continuing Indwelling Catheter: Required Immobilization for Trauma or Surgery or Anesthesia Urinary Catheter Date of Insertion: 11/19/24 Urinary Catheter Time of Insertion: 05:01 Data 11/21/24 03:55 11/21/24 03:55 Micro: Microbiology 11/19/24 01:15 Urine Culture - Final Urine,Clean Catch Enterobacter cloacae A&P Assessment and plan 1. Urinary tract infection: 2. JULIET (acute kidney injury): 3. Hyperosmolar hyperglycemic state (HHS): Plan: 69 year old male presenting with HHS, AMS and UTI. Has been home on hospice and is planning to discharge to a hospice facility. HHS - Ketones negative, anion gap 20.2, bicarb 21, calculated osmolality 316, blood sugar over 800, with drowsiness on admission - responded to insulin drip, now able to transition to home insulin. - initiate subq insulin on D/C Electrolyte Replacement: - now corrected, off insulin drip. Urinary tract infection - initially started on Rocephin, advanced to meropenem for concern for MDR. - urine cultures show Enterobacter cloacae, sensitive to multiple abx - downgrade to oral cephalosporins for D/C History of CHF, monitor fluid overload - cont. oral lasix HTN - cont. home regimen, added amlodipine 5 mg daily this admission Disposition - discharge plan changed to acute rehab, awaiting placement. PDMP PDMP Reviewed: Not Reviewed Attestations 2 Medical Necessity Statement*: discharge planning for today. Time Spent in Patient Care: 16 - 35 minutes (>than 50% of time sp ent in counselling and/or direct pt care on unit) . Coding Level of Care Code Acute Code for Chg Fwd Diagnoses Urinary tract infection N39.0 JULIET (acute kidney injury) N17.9 Hyperosmolar hyperglycemic state (HHS) E11.00
[2024-11-23] VITALS: BP 110/68; PULSE 74; RESP 16; TEMP 36.6; O2SAT 96
[2024-11-23 04:00] VITALS: BP 170/84; PULSE 70; RESP 17; TEMP 36.8; O2SAT 95
[2024-11-23] MEDS: pantoprazole 40 mg SDV IVP (05:20)
[2024-11-23 05:24] LABS: Hematocrit 29.4 % (37-53); Hemoglobin 9.40 g/dL (11.27-16.99); Mean Corpuscular HGB Conc 32.0 g/dL (30-55); Mean Corpuscular Hemoglobin 27.8 pg (27-33); Mean Corpuscular Volume 87.0 fl (82-101); Nucleated Red Blood Cells % 0 %; Platelet Count 241 10^3/cmm (157-399); Red Blood Count 3.38 10^6/uL (3.85-5.65); White Blood Count 5.15 10^3/uL (3.29-11.43)
[2024-11-23 05:47] LABS: Anion Gap 16.4 (5-19); Blood Urea Nitrogen 47 mg/dL (8-23); Calcium 9.0 mg/dL (8.5-10.5); Carbon Dioxide 26 mmol/L (22-29); Chloride 101 mmol/L (98-107); Creatinine Clr Calc Pharmacy 41.3104; Glucose 92 mg/dL (65-115); Osmolality Calculated 302 mOsm/kg (285-295); Potassium 3.4 mmol/L (3.5-5.1); Sodium 140 mmol/L (136-145)
[2024-11-23 06:24] VITALS: PULSE 69
[2024-11-23 07:43] VITALS: BP 146/80; PULSE 61; RESP 15; TEMP 36.6; O2SAT 96
[2024-11-23] MEDS: carbidopa-levodopa 25-100mg Tablet 1 EACH PO ×2 (08:37→15:08)
[2024-11-23] MEDS: insulin glargine 100 units/1 mL 60 UNIT SUBCUT (08:37)
--- NOTE | 2024-11-23 09:57 | P.PN_ITS ---
Subjective 2 Subjective: Continue to await placement Vitals/I&O/Wt Last Vital Signs Temp 97.8 F 11/23/24 07:43 Pulse 61 11/23/24 07:43 Resp 15 11/23/24 07:43 BP 146/80 11/23/24 07:43 Pulse Ox 96 11/23/24 07:43 O2 Del Method Room Air 11/23/24 07:43 O2 Flow Rate 2 11/22/24 04:00 11/22/24 11/23/24 11/23/24 22:59 06:59 14:59 Intake Total 240 / 480 120 / 120 Output Total 300 / 2400 500 / 2900 Balance -60 / -1920 -500 / -2420 120 / 120 Weight last 48 hrs Weight 96.388 kg Weight 101.321 kg Physical Exam 2 Const: COMMON NORMALS: no acute distress and patient oriented x3 HENMT: COMMON NORMALS: normocephalic and atraumatic HEAD & SCALP: n ormocephalic and atraumatic Eye: COMMON NORMALS: Equal, round and reactive pupils present PUPIL: Yes Equal, round and reactive pupils present Neck/C-Spine: COMMON NORMALS: full ROM and no lymphadenopathy Lymph: LYMPHATIC: no lymphadenopathy noted Chest: COMMONS NORMALS: normal inspection of the chest Resp: COMMON NORMALS: normal respiratory effort, No retractions and clear to auscultation bilaterally AUSCULTATION: clear to auscultation bilaterally Cardio: COMMON NORMALS: regular rate, regular rhythm, No gallops present (Cardio), No clicks present (Cardio) and No rub (Cardio) RATE: regular rate RHYTHM: regular rhythm GI: COMMON NORMALS: Soft to palpation, non-tender and no masses PALPATION: Yes Soft to palpation Extremity: NARRATIVE EXTREMITY EXAM: right forearm cast. Neuro: COMMON NORMALS: patient oriented x3, moves all extremities, no focal motor deficits and no sensory deficits noted Urinary Catheter Management: Salazar: Cath Placed During This Visit: yes Reason for Continuing Indwelling Catheter: Other Urinary Catheter Date of Insertion: 11/19/24 Urinary Catheter Time of Insertion: 05:01 Data 11/23/24 04:50 11/23/24 04:50 Other data: 69 year old male presenting with HHS, AMS and UTI. Has been home on hospice and is planning to discharge to a hospice facility. A&P Assessment and plan 1. Urinary tract infection: 2. JULIET (acute kidney injury): 3. Acute kidney injury: 4. Hyperosmolar hyperglycemic state (HHS): Plan: HHS - Ketones negative, anion gap 20.2, bicarb 21, calculated osmolality 316, blood sugar over 800, with drowsiness on admission - responded to insulin drip, now able to transition to home insulin. - initiate subq insulin on D/C Electrolyte Replacement: - given another 40 meq potassium this AM. Urinary tract infection - initially started on Rocephin, advanced to meropenem for concern for MDR. - urine cultures show Enterobacter cloacae, sensitive to multiple abx - downgrade to oral cephalosporins for D/C - encourage oral intake. History of CHF, monitor fluid overload - cont. oral lasix HTN - cont. home regimen, added amlodipine 5 mg daily this admission Disposition - discharge plan changed to acute rehab, awaiting placement. PDMP PDMP Reviewed: Not Reviewed Attestations 2 Medical Necessity Statement*: Has been awaiting placement, discharging today per CM. Time Spent in Patient Care: 16 - 35 minutes (>than 50% of time sp ent in counselling and/or direct pt care on unit) . Coding Level of Care Code [facility] Urinary tract infection N39.0 JULIET (acute kidney injury) N17.9 Hyperosmolar hyperglycemic state (HHS) E11.00
[2024-11-23 12:00] VITALS: BP 120/73; PULSE 66; RESP 15; TEMP 36.9; O2SAT 97
--- NOTE | 2024-11-23 12:39 | PC.NURSE ---
This nurse called report to SHAUNA Garcia at [facility] at 1235. [facility] should be here around 1530 to pick pt up.
[2024-11-23 16:51] VITALS: BP 120/76; PULSE 68; O2SAT 96
== END 2024-11-23 16:51 | disposition hospice, inpatient (51) | DRG 638 ==
LOC: ER 02:52 → ICU 03:07 → MEDSURG 11-21 21:04
PROVIDERS: Student in an Organized Health Care Education/Training Program; Admitting Provider Family Medicine; Emergency Provider Emergency Medicine; PCP Nurse Practitioner Family; Visit Provider Internal Medicine
DX: E11.00 Type 2 diabetes mellitus with hyperosmolarity without nonketotic hyperglycemic-hyperosmolar coma (NKHHC) (principal); I13.0 Hypertensive heart and chronic kidney disease with heart failure and stage 1 through stage 4 chronic kidney disease, or unspecified chronic kidney disease; N17.9 Acute kidney failure, unspecified; N39.0 Urinary tract infection, site not specified; E11.22 Type 2 diabetes mellitus with diabetic chronic kidney disease; N18.9 Chronic kidney disease, unspecified; I50.9 Heart failure, unspecified; Z79.4 Long term (current) use of insulin; Z75.1 Person awaiting admission to adequate facility elsewhere; G20.A1 Parkinson's disease without dyskinesia, without mention of fluctuations; I25.10 Atherosclerotic heart disease of native coronary artery without angina pectoris; G47.33 Obstructive sleep apnea (adult) (pediatric); E78.5 Hyperlipidemia, unspecified; Z87.891 Personal history of nicotine dependence; Z89.429 Acquired absence of other toe(s), unspecified side; I25.2 Old myocardial infarction; Z79.02 Long term (current) use of antithrombotics/antiplatelets; Z79.82 Long term (current) use of aspirin
CPT/HCPCS: 36415; 36416; 36600; 51702; 74176; 80048; 80053; 80061; 81001; 82009; 82803; 82962; 83036; 83605; 83880; 83930; 83935; 84100; 84145; 84443; 85025; 86140; 87040; 87077; 87086; 87186; 94664; 96365; 96372; 96375; 97161; 97165; 97535; 99285; J0360; J0696; J1650; J1815; J2185; J2270; J2405; J2470; J7030; J9999

== ENCOUNTER → 2024-11-29 15:08 | Outpatient (BNVA) | payer MEDICARE, MEDICAID, SELFPAY | PROVIDERS: PCP Internal Medicine; Visit Provider Physician Assistant | DX: Z98.890 Other specified postprocedural states (principal) | CPT/HCPCS: 99024 ==

== ENCOUNTER 2024-12-10 13:48 | Inpatient (IN) | payer OTHER, MEDICARE, MEDICAID, SELFPAY ==
--- OUTSIDE RECORDS SUMMARY | 2023-07-28 11:00 | XMS_ITS ---
Author Organization [facility] Address [address] [place] [address] Care Team Providers Care Oil Burner Technician Name Role Phone Roxana James APRN Primary Care Provider EFRAIN Garcia Unavailable [phone] ZAHIRA DYE Unavailable [phone] REASON FOR VISIT 6 mo w/ ua/pvr Encounters Encounter Location Date Provider Diagnosis [facility], [facility] [address] [facility] [place] [address] 07/28/2023 EFRAIN MATOS Plan Of Treatment Next Appt Details Provider Name:EFRAIN MATOS, 0 11/09/2025 02:30:00 PM, [address] [place], [address], Progress Notes * Yaya ASTUDILLODOB: (69 yo M)Acc No.[id number]:07/28/2023 Progress Notes Patient: Yaya MARY Provider: Charlie Matos APRN-OFFICE CORRESPONDENT :1955 A ge:67 Y S ex:Male Date:07/28/2023 Address:[address] [place] [id number] Pcp:Roxana James APRN Subjective: * Chief Complaints: * 1 . 6 mo w/ ua/pvr. * Medical History: Objective: * Vitals: Assessment: Plan: * Treatment: * Billing Information: * Visit Code: * Procedure Codes: * Electronic signature of EFRAIN MATOS APRN on 12/10/2024 at 01:55 PM CDT Sign off status: Pending * Provider: MEENAKSHI Hernandes Date: 0 07/28/2023 Generated for Yenifer Hodge on: 0 12/10/2024 01:55 PM CDT
[2024-12-10] VITALS (9 sets, daily range): BP systolic 120–155; BP diastolic 60–81; PULSE 61–80; RESP 18–25; TEMP 36.4–36.9; O2SAT 90–94; BMI 42.3
--- NOTE | 2024-12-10 13:52 | XRR_ITS ---
PROCEDURE INFORMATION: Exam: XR Abdomen Exam date and time: 12/10/2024 2:05 PM Age: 69 years old Clinical indication: Abdominal pain; Additional info: Constipation TECHNIQUE: Imaging protocol: Radiologic exam of the abdomen. Views: Frontal supine view of the abdomen. 1 View. COMPARISON: CT abdomen pelvis con [id number] 11/19/2024 7:13 AM FINDINGS: Gastrointestinal tract: Normal. No bowel dilation. There is scattered colonic fecal stasis without fecal impaction or bowel obstruction. Bones/joints: Unremarkable. XR/XR KUB portable [id number] IMPRESSION: 1. No acute findings. 2. There is scattered colonic fecal stasis without obstruction
--- OUTSIDE RECORDS SUMMARY | 2024-12-10 13:56 | XMS_ITS | Patient Health Record ---
Author Organization [facility] Address [address] [place] [address] Care Team Providers Care Watch And Clock Maker And Repairer Name Role Phone Janice James APRNn Primary Care Provider Unavaila Michael Ramirez Unavailable [phone] ZAHIRA DYE Unavailable Unavailable Jerry Palmer Unavailable Allergies No Known Allergies Reason For Referral No Information Medications Medication SIG (Take, Route, Frequency, Duration) Notes Start Date End Date Status Insulin Lispro 100 UNIT/ML Solution Cartridge as directed Subcutaneous Active Victoza 18 MG/3ML Solution Pen-injector as directed Subcutaneous Act miguel Levemir FlexPen 100 UNIT/ML Solution Pen-injector as directed Subcutaneous Act miguel Atorvastatin Calcium 40 MG Tablet 1 tablet Orally Once a day Active Metoprolol Tartrate 50 MG Tablet 1 tablet with food Orally Twice a day Active Aspirin 81 81 MG Tablet Delayed Release 1 tablet Orally Once a day Active Pantoprazole Sodium 40 MG Tablet Delayed Release 1 tablet Orally Once a day Active Nitroglycerin 0.4 MG Tablet Sublingual as directed Sublingual Active Clopidogrel Bisulfate 75 MG Tablet 1 tablet Orally Once a day Active Carbidopa-Levodopa 25-100 MG Tablet 1 tablet as needed Orally Two times a Week Active Jardiance 25 MG Tablet 1 tablet Orally O nce a day Active HYDROcodone-Acetaminophen 5-325 MG Tablet 1 tablet as needed Orally every 6 hrs; Duration: 30 days 12/05/2024 12/28/2024 Active Cipro Active Lisinopril 20 MG Tablet 1 tablet Orally Once a day Active Furosemide 40 MG Tablet 1 tablet Orally Once a day Active Isosorbide Mononitrate ER 60 MG Tablet Extended Release 24 Hour 1 tablet in the morning Orally Once a day Active Finasteride 5 MG Tablet 1 tablet Orally Once a day Active Tamsulosin HCl 0.4 MG Capsule 1 capsule Orally Once a day Active Social History [...] Problem Status W/U Status Risk Notes Problem Information temporarily unavailable Type 2 diabetes mellitus with hyperosmolarity without nonketotic hyperglycemic-hyper osmolar coma (NKHHC) (E11.00) Active confirmed Problem Information temporarily unavailable Balanitis (N48.1) Active confirmed Problem Information temporarily unavailable Urinary retention (R33.9) Active confirmed Problem Information temporarily unavailable Diabetic peripheral neuropathy (E11.42) Active confirmed Problem Information temporarily unavailable Altered mental status, unspecified altered mental status type (R41.82) Active confirmed Problem Information temporarily unavailable Recent urinary tract infection (Z87.440) Active confirmed Problem Information temporarily unavailable BPH loc w urin obs/LUTS (N40.1) Active confirmed Problem Information temporarily unavailable COPD, moderate (J44.9) Active confirmed Encounters Encounter Location Date Provider Diagnosis [facility]ly [facility] [address] [place] [address] 11/23/2024 Jerry Palmer Type 2 diabetes mellitus with hyperosmolarity without nonketotic hyperglycemic-hyperosm olar coma (NKHHC) E11.00 ; Acute kidney injury N17.9 ; COPD, moderate J44.9 ; Diabetic peripheral neuropathy E11.42 and Altered mental status, unspecified altered mental status type R41.82 [facility] [address] [place] [id number] 11/28/2024 Jerry Palmer Assessments Encounter Date Diagnosis (ICD Code) Assessment Notes Treatment Notes Treatment Clinical Notes Section Notes 11/23/2024 Type 2 diabetes mellitus with hyperosmolarity without nonketotic hyperglycemic-hyper osmolar coma (NKHHC) (ICD-10 - E11.00) Medications reviewed, orders signed and documented with nursing staff. Vitals taken and recorded at [facility]. 11/23/2024 Acute kidney injury (ICD-10 - N17.9) 11/23/2024 COPD, moderate (ICD-10 - J44.9) 11/23/2024 Diabetic peripheral neuropathy (ICD-10 - E11.42) 11/23/2024 Altered mental status, unspecified altered mental status type (ICD-10 - R41.82) Plan Of Treatment No Information Insurance Providers Payer Name Payer Address Payer Phone Subscriber Number Group Number Insured Name Patient Relationship to Insured Coverage Start Date Coverage End Date [place] Medicare Replacement [address] [place] [address] [id number] Yaya Astudillo Self - patient is the insured [place] Medicaid [address] [place] [address] [id number] WildaYaya kelly Self - patient is the insured Medical (General) History Medical History History ICD Code Arthritis Heart Condition Diabetes Hemorrhoids Hospitalization History Reason Date(Month/Year) Urinary Issue 09/2022
--- OUTSIDE RECORDS SUMMARY | 2024-12-10 13:56 | XMS_ITS | Patient Health Record ---
Author Organization [facility] Address [address] [place] [address] Care Team Providers Care Health Consultant Name Role Phone Roxana James APRN Primary Care Provider EFRAIN Garcia Unavailable [phone] ZAHIRA DYE Unavailable [phone] Allergies No Known Allergies Reason For Referral [...] a day Active Cipro *Pick strength-form from [employer] for eRX* Not-Taking Metoprolol Tartrate 50 MG 1 tablet with food Orally Twice a day Active Lisinopril 20 MG 1 tablet Orally Once a day Not-Taking Jardiance 25 MG 1 tablet Orally Once a day Active Furosemide 40 MG 1 tablet Orally Once a day Active Aspirin 81 81 MG 1 tablet Orally Once a day *Pick strength-form from [employer] for eRX* Active Pantoprazole Sodium 40 MG 1 tablet Orally Once a day Active Levemir FlexPen 100 UNIT/ML as directed Subcutaneous *Reorder from [employer] for eRx and Interaction Alerts* Not-Taking Isosorbide Mononitrate ER 60 MG 1 tablet in the morning Orally Once a day Active Victoza 18 MG/3ML as directed Subcutaneous Not-Taking Nitroglycerin 0.4 MG as directed Sublingual Active Atorvastatin Calcium 40 MG 1 tablet Orally Once a day Active Insulin Lispro 100 UNIT/ML as directed Subcutaneous *Pick strength-form from [employer] for eRX* Active Social History Tobacco Use: [...] Status Risk Notes Problem Information temporarily unavailable Balanitis (N48.1) Active confirmed Problem Information temporarily unavailable Dysuria (R30.0) Active confirmed Problem Information temporarily unavailable Benign prostatic hyperplasia with lower urinary tract symptoms (N40.1) Active confirmed Problem Information temporarily unavailable Recent urinary tract infection (Z87.440) Active confirmed Problem Information temporarily unavailable History of urinary retention (Z87.898) Active confirmed Problem Information temporarily unavailable History of UTI (Z87.440) Active confirmed Problem Information temporarily unavailable Urinary retention (R33.9) Active confirmed Problem Information temporarily unavailable BPH loc w urin obs/LUTS (N40.1) Active confirmed Vital Signs Heart Rate 64 /min 11/09/2024 Height-cm 172.72 cm 11/09/2024 Blood pressure diastolic 50 mm Hg 11/09/2024 Weight-kg 101.61 kg 11/09/2024 Height 68 in 11/09/2024 Blood pressure systolic 128 mm Hg 11/09/2024 Weight 224 lbs 11/09/2024 BMI 34.06 kg/m2 11/09/2024 Procedures Procedure Date Ordered Date Performed Result Body Sit e Bladder Scan 11/09/2024 11/09/2024 N/A Encounters Encounter Location Date Provider Diagnosis [facility] [address] [place] [address] 11/09/2024 EFRAIN MATOS Benign prostatic hyperplasia with lower urinary tract symptoms N40.1 ; Glucosuria R81 ; Urinary urgency R39.15 ; History of UTI Z87.440 and History of urinary retention Z87.898 [facility] [address] [facility] [place] [address] 10/19/2024 EFRAIN MATOS Assessments Encounter Date Diagnosis [...] 0 11/09/2025 02:30:00 PM, [address] [place], [address], Insurance Providers Payer Name Payer Address Payer Phone Subscriber Number Group Number Insured Name Patient Relationship to Insured Coverage Start Date Coverage End Date [facility] [place] Medicare Replacement [address] [place], [place] [phone] [id number] Yaya Astudillo Self - patient is the insured [facility] [address] [address] [place], [place] [id number] Yaya Astudillo Self - patient is the insured Medical (General) History Medical History History ICD Code Arthritis Heart Condition Diabetes Hemorrhoids Hospitalization History Reason Date(Month/Year) Urinary Issue 09/2022
--- NOTE | 2024-12-10 13:58 | W.ED.ABDPA2 ---
HPI - Abdominal Pain General: Chief Complaint: Abdominal Pain Stated Complaint: abd pain Time Seen by Provider: 12/10/24 13:48 Source: patient and EMS Mode of arrival: EMS Limitations: no limitations History of Present Illness: 69-year-old male who was sent here from senior care for concern Xceed had some hypotension and hypoxia there his blood pressure and oxygen sats here are normal he states his only complaints he has some mild abdominal cramping he states he rates a 1 out of 10 due to constipation denies any fever denies any vomiting denies any worse improved factors. Associated Symptoms: Reports constipation; Denies chills, diarrhea, fever(s), nausea and vomiting Related Data Home Medications ?Medication ?Instructions ?Recorded ?Confirmed aspirin 81 mg tablet,delayed 81 mg PO QAM 05/10/19 12/10/24 release (Adult Low Dose Aspirin) cholecalciferol (vitamin D3) 25 25 mcg PO DAILY 10/10/22 12/10/24 mcg (1,000 unit) capsule (Vitamin D3) atorvastatin 40 mg tablet 40 mg PO QPM 10/16/22 12/10/24 insulin lispro 100 unit/mL See Rx Instructions .Route .COMPLEX 06/16/23 12/10/24 subcutaneous pen (Humalog KwikPen (U-100) Insulin) nitroglycerin 0.4 mg sublingual See Rx Instructions .Route .COMPLEX 07/27/23 12/10/24 tablet carbidopa 25 mg-levodopa 100 mg 1 tab PO TID 03/01/24 12/10/24 tablet furosemide 40 mg tablet 40 mg PO DAILY 05/30/24 12/10/24 lactulose 10 gram/15 mL oral 30 ml PO BID PRN Constipation 09/23/24 12/10/24 solution (Constulose) polyethylene glycol 3350 17 17 g PO DAILY PRN Constipation 09/23/24 12/10/24 gram/dose oral powder (ClearLax) naproxen 500 mg tablet 500 mg PO BID 10/08/24 12/10/24 scopolamine base 1 mg over 3 days 1 patch topical Q3D 10/08/24 12/10/24 transdermal patch tizanidine 4 mg tablet 4 mg PO TID PRN Pain 10/08/24 12/10/24 chlorzoxazone 250 mg tablet 250 mg PO TID PRN muscle spasms 11/02/24 12/10/24 ibuprofen 600 mg tablet 600 mg PO TID PRN Pain 11/02/24 12/10/24 luhefucvxjih-qofyvnlr-ftuakm 1 tab PO DAILY 11/02/24 12/10/24 tablet (Multivitamin 50 Plus tablet) olanzapine 5 mg tablet 5 mg PO BEDTIME 11/02/24 12/10/24 insulin glargine 100 unit/mL (3 85 unit SUBCUT BID 11/09/24 12/10/24 mL) subcutaneous pen (Lantus Solostar U-100 Insulin) clopidogrel 75 mg tablet 75 mg PO DAILY 11/10/24 12/10/24 hydrocodone 5 mg-acetaminophen 325 1 tab PO Q6H PRN Pain 11/19/24 12/10/24 mg tablet ondansetron 4 mg disintegrating 4 mg PO Q8H PRN Nausea And Vomiting 11/19/24 12/10/24 tablet potassium chloride 20 mEq 20 meq PO DAILY 11/19/24 12/10/24 tablet,extended release tamsulosin 0.4 mg capsule 0.4 mg PO DAILY 11/19/24 12/10/24 amlodipine 10 mg tablet 10 mg PO DAILY 12/10/24 12/10/24 Previous Rx's ?Medication ?Instructions ?Recorded metoprolol tartrate 50 mg tablet 50 mg PO BID #180 tabs 11/10/19 finasteride 5 mg tablet 5 mg PO DAILY #90 tabs 10/11/22 isosorbide mononitrate 60 mg 60 mg PO DAILY #30 tabs 06/16/23 tablet,extended release 24 hr cefdinir 300 mg capsule 300 mg PO BID #14 caps 11/21/24 Allergies Allergy/AdvReac Type Severity Reaction Status Date / Time No Known Allergies Allergy Verified 11/29/24 15:16 Review of Systems Const: Denies: fever(s), chills, body aches or change in appetite ENMT: Denies: throat pain or dental pain Card: Denies: chest pain Resp: Denies: dyspnea GI: Reports: abdominal pain and constipation; Denies: nausea, vomiting or diarrhea Musc: Denies: neck pain or back pain Skin/Breast: Denies: rash Neuro: Denies: headache(s) PFSH ED PFSH: Medical History Urinary tract infection CÉSAR (obstructive sleep apnea) Hyperlipidemia HTN (hypertension) ASHD (arteriosclerotic heart disease) Diabetes Hyperglycemia JULIET (acute kidney injury) Elbow contusion Dystonic tremor Acute on chronic renal failure Urinary retention Acute renal failure Ophthalmoplegia Parkinson disease Diabetic neuropathy associated with type 2 diabetes mellitus Essential tremor Cough Exposure to COVID-19 virus Chronic diarrhea Diabetic foot ulcer CKD (chronic kidney disease) (~10/12/20) Obesity Myocardial infarction Surgical History S/P eye surgery Status post colonoscopy (12/24/20) sigmoid polyp Status post amputation of toe S/P angioplasty with stent Family History Mother CAD (coronary artery disease) Diabetes Social History Smoking and tobacco/nicotine status: former use of tobacco/nicotine Alcohol intake: former Substance/Drug Use: never Lives independently: Yes Household members: other Details: DOG Marital status: service: No Current occupational status: disabled 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 Physical Exam Const: COMMON NORMALS: no acute distress, patient oriented x3 and healthy appearing HENMT: COMMON NORMALS: normocephalic and atraumatic HEAD & SCALP: normocephalic and atraumatic Eye: COMMON NORMALS: Equal, round and reactive pupils present and EOMs intact bilaterally PUPIL: Yes Equal, round and reactive pupils present Neck/C-Spine: COMMON NORMALS: full ROM and supple Chest: COMMONS NORMALS: normal inspection of the chest and normal palpation of entire chest wall Resp: COMMON NORMALS: normal respiratory effort, No retractions, No use of accessory muscles and clear to auscultation bilaterally AUSCULTATION: clear to auscultation bilaterally Cardio: COMMON NORMALS: regular rate, regular rhythm and No murmurs present (Cardio) RATE: regular rate RHYTHM: regular rhythm GI: COMMON NORMALS: Normal to inspection, nondistended, normoactive bowel sounds present, Soft to palpation, non-tender and no masses PALPATION: Yes Soft to palpation Extremity: COMMON NORMALS: normal to inspection and full ROM Neuro: COMMON NORMALS: patient oriented x3, moves all extremities and no focal motor deficits Psych: COMMON NORMALS: mental status grossly normal, Normal thought process present and cooperative THOUGHT PROCESS: Normal thought process present Skin: COMMON NORMALS: no rashes or lesions noted and no wounds GENERAL SKIN EXAM: no rashes or lesions noted Course Vital Signs: Vital signs: Vital Signs Temperature 97.8 F 12/10/24 13:49 Pulse Rate 71 12/10/24 15:51 Respiratory Rate 25 H 12/10/24 14:07 Blood Pressure 144/73 12/10/24 15:51 Pulse Oximetry 93 12/10/24 15:51 Oxygen Delivery Me thod Nasal Cannula 12/10/24 14:07 Oxygen Flow Rate 3 12/10/24 14:07 MDM - Abdominal Pain Medical Decision Making Patient presents here with acute kidney injury also has a slight anemia CT abdomen showed no acute abdominal findings I spoke to hospitalist will admit at this time Medical Records I reviewed the patient's medical records. Lab Data I reviewed the patient's lab results. 12/10/24 14:06 12/10/24 14:06 Labs/Radiology: Radiology Impressions KUB X-Ray 12/10/24 13:52 IMPRESSION: 1. No acute findings. 2. There is scattered colonic fecal stasis without obstruction Abdomen/Pelvis CT 12/10/24 14:47 IMPRESSION: 1. Bilateral lower lobe pleural effusion larger on the right side 2. Heavy coronary artery calcifications. 3. Traction atelectasis right lower lobe 4. Hepatomegaly 5. Cholelithiasis. Laboratory Results WBC 10.68 10^3/uL (3.29-11.43) 12/10/24 14:06 RBC 2.57 10^6/uL (3.85-5.65) L 12/10/24 14:06 Hgb 7.20 g/dL (11.27-16.99) L 12/10/24 14:06 Hct 23.9 % (37-53) L 12/10/24 14:06 MCV 93.0 fl (82-101) 12/10/24 14:06 MCH 28.0 pg (27-33) 12/10/24 14:06 MCHC 30.1 g/dL (30-55) 12/10/24 14:06 RDW 16.8 % (12.1-15.1) H 12/10/24 14:06 Plt Count 193 10^3/cmm (157-399) 12/10/24 14:06 MPV 10.2 fL (7.4-10.4) 12/10/24 14:06 Neut % (Auto) 83.4 % 12/10/24 14:06 Lymph % (Auto) 6.6 % 12/10/24 14:06 [place] % (Auto) 9.1 % 12/10/24 14:06 Eos % (Auto) 0.4 % 12/10/24 14:06 Baso % (Auto) 0.2 % 12/10/24 14:06 Neut # (Auto) 8.92 10^3/uL (1.8-7.7) H 12/10/24 14:06 Lymph # (Auto) 0.7 10^3/uL (0.8-4.8) L 12/10/24 14:06 [place] # (Auto) 1.0 10^3/uL (0.2-0.9) H 12/10/24 14:06 Eos # (Auto) 0.0 10^3/uL (0.0-0.8) 12/10/24 14:06 Baso # (Auto) 0.0 10^3/uL (0.0-0.1) 12/10/24 14:06 Nucleated RBC % (auto) 0 % 12/10/24 14:06 Nucleated RBCs # 0.0 /100WBC 12/10/24 14:06 Sodium 138 mmol/L (136-145) 12/10/24 14:06 Potassium 5.7 mmol/L (3.5-5.1) H 12/10/24 14:06 Chloride 103 mmol/L (98-107) 12/10/24 14:06 Carbon Dioxide 23 mmol/L (22-29) 12/10/24 14:06 Anion Gap 17.7 (5-19) 12/10/24 14:06 BUN 71 mg/dL (8-23) H 12/10/24 14:06 Creatinine 3.6 mg/dL (0.7-1.2) H 12/10/24 14:06 GFR Calculation 16.9 mL/min (90-130) L 12/10/24 14:06 Glucose 48 mg/dL (65-115) L 12/10/24 14:06 POC Glucose 118 mg/dL (70-110) H 12/10/24 15:22 Calculated Osmolality 304 mOsm/kg (285-295) H 12/10/24 14:06 Calcium 8.7 mg/dL (8.5-10.5) 12/10/24 14:06 Total Bilirubin 0.5 mg/dL (0.15-1.2) 12/10/24 14:06 AST 35 U/L (0-40) 12/10/24 14:06 ALT 9 U/L (0-41) 12/10/24 14:06 Alkaline Phosphatase 131 U/L (40-130) H 12/10/24 14:06 Total Protein 7.2 g/dL (6.6-8.7) 12/10/24 14:06 Albumin 3.5 g/dL (3.5-5.2) 12/10/24 14:06 Globulin 3.7 g/dL (1.3-4.6) 12/10/24 14:06 Lipase 14 U/L (13-60) 12/10/24 14:06 Urine Color Yellow (Yellow) 12/10/24 14:06 Urine Appearance Cloudy (CLEAR) A 12/10/24 14:06 Urine pH 5.0 (5-7) 12/10/24 14:06 Ur Specific [place] 1.019 (1.005-1.030) 12/10/24 14:06 Urine Protein 1+ (Negative) A 12/10/24 14:06 Urine Glucose (UA) Negative (Normal) 12/10/24 14:06 Urine Ketones Trace (Negative) 12/10/24 14:06 Urine Blood Negative (Negative) 12/10/24 14:06 Urine Nitrate Negative (Negative) 12/10/24 14:06 Urine Bilirubin Negative (Negative) 12/10/24 14:06 Urine Urobilinogen 1.0 mg/dL (Negative) 12/10/24 14:06 Ur Leukocyte Esterase 2+ (Negative) A 12/10/24 14:06 Urine RBC 0-2 /hpf (0-2) 12/10/24 14:06 Urine WBC 51-100 /hpf (0-5) H 12/10/24 14:06 Ur Squamous Epith Cells 0-5 /hpf (0-5) 12/10/24 14:06 Amorphous Sediment Not Reportable 12/10/24 14:06 Urine Bacteria 1+ /hpf (NONE) H 12/10/24 14:06 Hyaline Casts 25.63 /lpf 12/10/24 14:06 Blood Type O Positive 12/10/24 15:01 Rho(D) Type Rh positive 12/10/24 15:01 Antibody Screen Negative 12/10/24 15:01 All radiology interpretation(s) finalized by discharge Discharge Plan Discharge Patient Disposition: Admitted As Inpatient Clinical Impression: Acute kidney injury, Anemia Condition: Stable Coding Level of Care Code ED Veterinarian Helper for Hugo Garcia
[2024-12-10 14:12] LABS: Hematocrit 23.9 % (37-53); Hemoglobin 7.20 g/dL (11.27-16.99); Mean Corpuscular HGB Conc 30.1 g/dL (30-55); Mean Corpuscular Hemoglobin 28.0 pg (27-33); Mean Corpuscular Volume 93.0 fl (82-101); Nucleated Red Blood Cells % 0 %; Platelet Count 193 10^3/cmm (157-399); Red Blood Count 2.57 10^6/uL (3.85-5.65); White Blood Count 10.68 10^3/uL (3.29-11.43)
[2024-12-10 14:15] LABS: Glucose Urine UA Negative (Normal); Nitrate Urine Negative (Negative); Specific Gravity, Urine 1.019 (1.005-1.030)
[2024-12-10 14:20] LABS: Add Urine Microscopic? YES; Universal Test for UA Present (0)
[2024-12-10 14:34] LABS: UA Slide Review UA Slide Review Perf
[2024-12-10 14:35] LABS: Alanine Aminotransferase 9 U/L (0-41); Albumin Level 3.5 g/dL (3.5-5.2); Alkaline Phosphatase 131 U/L (40-130); Anion Gap 17.7 (5-19); Aspartate Amino Transferase 35 U/L (0-40); Blood Urea Nitrogen 71 mg/dL (8-23); Calcium 8.7 mg/dL (8.5-10.5); Carbon Dioxide 23 mmol/L (22-29); Chloride 103 mmol/L (98-107); Creatinine Clr Calc Pharmacy 25.0581; Globulin 3.7 g/dL (1.3-4.6); Glucose 48 mg/dL (65-115); Lipase 14 U/L (13-60); Osmolality Calculated 304 mOsm/kg (285-295); Potassium 5.7 mmol/L (3.5-5.1); Sodium 138 mmol/L (136-145); Total Protein 7.2 g/dL (6.6-8.7)
--- NOTE | 2024-12-10 14:47 | CTR_ITS ---
PROCEDURE INFORMATION: Exam: CT Abdomen And Pelvis Without Contrast Exam date and time: 12/10/2024 3:33 PM Age: 69 years old Clinical indication: Abdominal pain; Localized; Right lower quadrant (rlq); Additional info: Abd pain TECHNIQUE: Imaging protocol: Computed tomography of the abdomen and pelvis without contrast. Radiation optimization: All CT scans at this facility use at least one of these dose optimization techniques: automated exposure control; mA and/or kV adjustment per patient size (includes targeted exams where dose is matched to clinical indication); or iterative reconstruction. COMPARISON: CT abdomen pelvis wo con [id number] 11/19/2024 7:13 AM RADIATION DOSE METRICS: Total DLP (mGy-cm): 1189.93 FINDINGS: Chest: Right lower lobe pleural effusion. Heavy coronary artery calcifications. There is extraction atelectasis in the right lower lung there is a small pleural effusion in the posterior left lower lobe. Liver: Hepatomegaly the liver span is 23 cm. No mass. There are no dilated ducts Gallbladder and biliary ducts: There are calcified stones. No ductal dilation. Pancreas: Normal. No ductal dilation. Spleen: Normal. No splenomegaly. Adrenal glands: Normal. No mass. Kidneys and ureters: Normal. No hydronephrosis. Stomach and bowel: Unremarkable. No obstruction. No mucosal thickening. Appendix: No evidence of appendicitis. Intraperitoneal space: Unremarkable. No free air. No significant fluid collection. Vasculature: Unremarkable. No abdominal aortic aneurysm. Lymph nodes: Unremarkable. No enlarged lymph nodes. Urinary bladder: Unremarkable as visualized. Reproductive: Unremarkable as visualized. Bones/joints: Unremarkable. No acute fracture. Soft tissues: There is a small periumbilical ventral hernia filled with omental fat measuring 14 mm x 31 mm. The orifice is [address]/CT kidney stone [id number] IMPRESSION: 1. Bilateral lower lobe pleural effusion larger on the right side 2. Heavy coronary artery calcifications. 3. Traction atelectasis right lower lobe 4. Hepatomegaly 5. Cholelithiasis.
[2024-12-10] MEDS: cefTRIAXone 1,000 mg SDV 1000 MG IVP ×2 (14:52→18:38)
--- NOTE | 2024-12-10 14:59 | ECG_ITS ---
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 Measurements Intervals [place] Rate: 59 P: -14 NV: 189 QRS: 23 QRSD: 96 T: 66 QT: 435 QTc: 432 Interpretive Statements SINUS BRADYCARDIA LOW QRS VOLTAGE [QRS DEFLECTION < 0.5/1.0 mV IN LIMB/CHEST LEADS] Compared to ECG 11/02/2024 10:24:52 Low QRS voltage now present POOR R WAVE PROGRESSION NO LONGER PRESENT Electronically Signed On 12-11-2024 22:19:48 CDT by Juno Tijerina M.D. [email or web address]
--- NOTE | 2024-12-10 15:23 | PC.NURSE ---
glucose 118 via FS
--- NOTE | 2024-12-10 16:04 | XRR_ITS ---
PROCEDURE INFORMATION: Exam: XR Chest Exam date and time: 12/10/2024 4:15 PM Age: 69 years old Clinical indication: Shortness of breath; Additional info: SOB TECHNIQUE: Imaging protocol: Radiologic exam of the chest. Views: 1 view. COMPARISON: CR XR chest 1V portable [id number] 11/02/2024 8:14 AM FINDINGS: Lungs: Low lung volume. Atelectasis is present in the right lower lobe. The right upper lobe and left lung are clear. Pleural spaces: Unremarkable. No pleural effusion. No pneumothorax. Heart/Mediastinum: Unremarkable. No cardiomegaly. Bones/joints: Unremarkable. XR/XR chest 1V portable [id number] IMPRESSION: Interstitial densities right lower lobe.
--- NOTE | 2024-12-10 16:20 | PC.NURSE ---
glucose via FS 69.
--- NOTE | 2024-12-10 16:57 | PM.HP ---
Providers/Chief Complaint Admitting Physician: Ling Wei MD Primary Care Provider: John Palmer MD Chief Complaint: abd pain History of Present Illness Yaya Astudillo is a 69 year old male with past medical history of obstructive sleep apnea, hyperlipidemia, hypertension, diabetes, urinary retention, Parkinson disease, essential tremor, diabetic foot ulcer, CKD, obesity, myocardial infarction, Parkinson's disease who apparently was discharged to hospice on 11/22 to nursing facility per previous discharge summary however upon calling the nursing facility it seems patient was not on hospice care and was on rehab presented back to the hospital today for complaint of feeling cold. He states his oxygen was low and he was not breathing right. He states he was at [facility]. Complains of chest pain that feels like a pressure however nonspecific. He is unable to tell me if it increases upon rest or exertion. Unable to give me many details. He seemed to be somewhat confused at first however able to tell me where he is his name date of and the fact that he is in the hospital. He is unable to tell me who the president is. He did know it was year 2024. Denies cough fever nausea vomiting diarrhea. Last echo shows EF 45 to 50% grade 1 diastolic dysfunction. Bundle Collector procedure done February 2024 shows moderate in-stent restenosis of mid LAD stent. Aggressive medical therapy recommended. Mild left ventricular systolic dysfunction. Ejection fraction 40%. Medical therapy counseling recommended. Medications/Allergies Home Medications ?Medication ?Instructions ?Recorded ?Confirmed ?Last Taken ?Type aspirin 81 mg tablet,delayed 81 mg PO QAM 05/10/19 12/10/24 12/10/24 07:50 History release (Adult Low Dose Aspirin) metoprolol tartrate 50 mg tablet 50 mg PO BID #180 tabs 11/10/19 12/10/24 12/10/24 07:55 Rx cholecalciferol (vitamin D3) 25 25 mcg PO DAILY 10/10/22 12/10/24 12/10/24 07:50 History mcg (1,000 unit) capsule (Vitamin D3) finasteride 5 mg tablet 5 mg PO DAILY #90 tabs 10/11/22 12/10/24 12/10/24 07:50 Rx atorvastatin 40 mg tablet 40 mg PO QPM 10/16/22 12/10/24 11/09/24 History insulin lispro 100 unit/mL See Rx Instructions .Route .COMPLEX 06/16/23 12/10/24 12/10/24 07:50 History subcutaneous pen (Humalog KwikPen (U-100) Insulin) isosorbide mononitrate 60 mg 60 mg PO DAILY #30 tabs 06/16/23 12/10/24 12/10/24 07:50 Rx tablet,extended release 24 hr nitroglycerin 0.4 mg sublingual See Rx Instructions .Route .COMPLEX 07/27/23 12/10/24 2 Months Ago History tablet ~09/09/24 carbidopa 25 mg-levodopa 100 mg 1 tab PO TID 03/01/24 12/10/24 12/10/24 11:00 History tablet furosemide 40 mg tablet 40 mg PO DAILY 05/30/24 12/10/24 12/10/24 07:55 History lactulose 10 gram/15 mL oral 30 ml PO BID PRN Constipation 09/23/24 12/10/24 12/05/24 11:00 History solution (Constulose) polyethylene glycol 3350 17 17 g PO DAILY PRN Constipation 09/23/24 12/10/24 Unknown History gram/dose oral powder (ClearLax) naproxen 500 mg tablet 500 mg PO BID 10/08/24 12/10/24 12/10/24 07:50 History scopolamine base 1 mg over 3 days 1 patch topical Q3D 10/08/24 12/10/24 11/27/24 08:20 History transdermal patch tizanidine 4 mg tablet 4 mg PO TID PRN Pain 10/08/24 12/10/24 2 Weeks Ago History ~10/26/24 chlorzoxazone 250 mg tablet 250 mg PO TID PRN muscle spasms 11/02/24 12/10/24 11/09/24 History ibuprofen 600 mg tablet 600 mg PO TID PRN Pain 11/02/24 12/10/24 12/08/24 06:25 History drjghtrwsewo-dwishezt-cvigpz 1 tab PO DAILY 11/02/24 12/10/24 12/10/24 07:50 History tablet (Multivitamin 50 Plus tablet) olanzapine 5 mg tablet 5 mg PO BEDTIME 11/02/24 12/10/24 12/09/24 21:20 History insulin glargine 100 unit/mL (3 85 unit SUBCUT BID 11/09/24 12/10/2412/10/25 07:55 History mL) subcutaneous pen (Lantus Solostar U-100 Insulin) clopidogrel 75 mg tablet 75 mg PO DAILY 11/10/24 12/10/24 12/10/24 07:55 History hydrocodone 5 mg-acetaminophen 325 1 tab PO Q6H PRN Pain 11/19/24 12/10/24 12/10/24 06:00 History mg tablet ondansetron 4 mg disintegrating 4 mg PO Q8H PRN Nausea And Vomiting 11/19/24 12/10/24 Unknown History tablet potassium chloride 20 mEq 20 meq PO DAILY 11/19/24 12/10/24 12/10/24 07:50 History tablet,extended release tamsulosin 0.4 mg capsule 0.4 mg PO DAILY 11/19/24 12/10/24 12/10/24 07:50 History cefdinir 300 mg capsule 300 mg PO BID #14 caps 11/21/24 12/10/24 12/10/24 06:00 Rx amlodipine 10 mg tablet 10 mg PO DAILY 12/10/24 12/10/24 12/10/24 07:50 History Allergies Allergy/AdvReac Type Severity Reaction Status Date / Time No Known Allergies Allergy Verified 11/29/24 15:16 PFSH Acute PFSH: Medical History (Updated 12/10/24 @ 17:18 by Ling Wei MD) Parkinson disease Urinary tract infection CÉSAR (obstructive sleep apnea) Hyperlipidemia HTN (hypertension) ASHD (arteriosclerotic heart disease) Diabetes Hyperglycemia JULIET (acute kidney injury) Elbow contusion Dystonic tremor Acute on chronic renal failure Urinary retention Acute renal failure 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 Essential tremor Cough Exposure to COVID-19 virus Chronic diarrhea Diabetic foot ulcer CKD (chronic kidney disease) (~10/12/20) Obesity Myocardial infarction Surgical History S/P eye surgery Status post colonoscopy (12/24/20) sigmoid polyp Status post amputation of toe S/P angioplasty with stent Family History Mother CAD (coronary artery disease) Diabetes Social History Smoking and tobacco/nicotine status: former use of tobacco/nicotine Alcohol intake: former Substance/Drug Use: never Lives independently: Yes Household members: other Details: DOG Marital status: service: No Current occupational status: disabled 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 HEENT: Normocephalic, atraumatic, EOMI, 2 L nasal cannula at this time. Cardio: Regular rate rhythm, normal S1-S2, Respiratory: Clear to auscultation bilaterally no wheezes no rhonchi. Patient laying flat denies shortness of breath at this time. GI: Abdomen soft, nontender, bowel sounds + Behavior: Appropriate and cooperative, however appears somewhat confused however is alert oriented x 3. Extremities: No edema bilateral lower extremities Data 12/10/24 14:06 12/10/24 14:06 A&P Assessment and plan 1. HTN (hypertension): 2. Hyperlipidemia: 3. PVC (premature ventricular contraction): 4. JULIET (acute kidney injury): 5. Urinary tract infection: 6. CÉSAR (obstructive sleep apnea): 7. CKD (chronic kidney disease): 8. Acute renal failure: 9. Essential tremor: 10. Obesity: 11. Hypoglycemia: 12. Weakness: 13. JULIET (acute kidney injury): 14. Congestive heart failure: 15. Diabetic neuropathy associated with type 2 diabetes mellitus: 16. Acute hyperkalemia: Plan: #Hypoglycemia #Acute kidney injury #Hyperkalemia #Anemia #Insulin-dependent diabetes mellitus #UTI #Coronary artery disease #Systolic heart failure EF 45 to 50% #Parkinson's disease #Hypertension #Obstructive sleep apnea #Hyperlipidemia #Urinary tension #Essential tremor #CKD #Morbid obesity - Patient has a history anemia in the past as well however today hemoglobin is 7.2. Denies hematuria hematochezia, hemoptysis. Has been feeling weak. Will check iron studies ? Patient is also dehydrated. Will provide gentle IV fluid hydration. ? Does have bilateral pleural effusions however at this time due to oliguria (per patient) and JULIET we will provide gentle IV fluid hydration. ? Potassium 5.7. Hyperkalemia. Most likely secondary to acute renal failure. Creatinine now 3.6. Patient's baseline is between 1.5-1.7. BUN 71. Patient hypoglycemic on admission with blood sugar 48. On insulin at home. We will hold long-acting Lantus at this time. ? Hypoglycemic most likely secondary to renal failure. ? Check hemoglobin A1c ? Accu-Chek ACHS however we will hold off on adding sliding scale at this time. Would like to monitor blood sugar ? Ordered D10 bolus ? Continue aspirin Plavix carbidopa-levodopa ? Hold Lasix at this time. ? Continue metoprolol tartrate 25 twice daily (dose reduced from 50 twice daily at home) ? Reduce Imdur to 30 daily. ? Hold home potassium. ? Hold tamsulosin ? Check urine culture, blood culture ? CPAP at nighttime ? Check CBC every 12 hours. Transfuse for hemoglobin less than 7. ? Repeat cardiac echo ? Consult nephrology. -Check troponin and EKG series. ? Order calcium gluconate x 1 for hyperkalemia and sodium bicarbonate 650 x 1. ? Due to hypoglycemia earlier I will refrain from using insulin with dextrose at this time. ? Will place on D10 drip DNR/DNI DVT prophylaxis: SCDs. PDMP PDMP Reviewed: Not Reviewed Attestations Medical Necessity Statement*: Multiple medical issues at this time. Acute kidney injury/acute renal failure, hypoglycemia, UTI, Parkinson's disease With intermittent stay for management of above. Coding Level of Care Code Acute Code for Chg Fwd Diagnoses HTN (hypertension) I10 Hyperlipidemia E78.5 PVC (premature ventricular contraction) I49.3 JULIET (acute kidney injury) N17.9 Urinary tract infection N39.0 CÉSAR (obstructive sleep apnea) G47.33 CKD (chronic kidney disease) N18.9 Acute renal failure N17.9 Essential tremor G25.0 Obesity E66.9 Hypoglycemia E16.2 Weakness R53.1 Congestive heart failure I50.9 Diabetic neuropathy associated with type 2 diabetes mellitus E11.40 Acute hyperkalemia E87.5
--- NOTE | 2024-12-10 17:51 | ECG_ITS ---
[facility] [place] [facility]: 2024-12[facility]10 Pat Name: Yaya Astudillo Department: Room: 269 Gender: Male Behaviorist: : 1955 Requested By: Ling Wei Order Number: [id number] MD: Juno Tijerina M.D. Measurements Intervals [place] Rate: 67 P: 42 CO: 189 QRS: -9 QRSD: 75 T: 46 QT: 390 QTc: 415 Interpretive Statements SINUS RHYTHM LOW VOLTAGE Compared to ECG 12/10/2024 14:59:46 Sinus bradycardia no longer present Electronically Signed On 12-11-2024 22:11:31 CDT by Juno Tijerina M.D. [email or web address]
--- NOTE | 2024-12-10 18:16 | PM.CONSULT ---
Providers/Reason For Consult Consulting Physician/Specialty*: kommana/Nephrology Reason for Consult*: Acute on CKD Attending Physician: Ling Wei MD Primary Care Provider: John Palmer MD History of Present Illness History of Present Illness Yaya Astudillo is a 69 year old male Patient is a 69-year-old male with past medical history significant for hypertension, diabetes, dyslipidemia, history of Parkinson's disease, CKD stage III followed by nephrology as outpatient, history of coronary artery disease was recently admitted to the hospital and was discharged to the snf. Patient was sent back to the ER today due to chest pain and feeling cold. Patient reports decreased appetite and decreased p.o. intake. Also reports that he suffered falls and was having back pain. Home med list shows that patient is on naproxen 500 mg twice daily. Unsure how long the patient is taking naproxen. Lab data showed potassium of 5.7 creatinine of 3.6. Creatinine at the time of discharge last admission was 1.9 Also patient was noted to be high glycemic and currently on D10 infusion. Also receiving normal saline at 75 cc an hour. Salazar catheter placed. Review of Systems Narrative: Other review of systems negative Medications/Allergies Home Medications ?Medication ?Instructions ?Recorded ?Confirmed ?Last Taken ?Type aspirin 81 mg tablet,delayed 81 mg PO QAM 05/10/19 12/10/24 12/10/24 07:50 History release (Adult Low Dose Aspirin) metoprolol tartrate 50 mg tablet 50 mg PO BID #180 tabs 11/10/19 12/10/24 12/10/24 07:55 Rx cholecalciferol (vitamin D3) 25 25 mcg PO DAILY 10/10/22 12/10/24 12/10/24 07:50 History mcg (1,000 unit) capsule (Vitamin D3) finasteride 5 mg tablet 5 mg PO DAILY #90 tabs 10/11/22 12/10/24 12/10/24 07:50 Rx atorvastatin 40 mg tablet 40 mg PO QPM 10/16/22 12/10/24 11/09/24 History insulin lispro 100 unit/mL See Rx Instructions .Route .COMPLEX 06/16/23 12/10/24 12/10/24 07:50 History subcutaneous pen (Humalog KwikPen (U-100) Insulin) isosorbide mononitrate 60 mg 60 mg PO DAILY #30 tabs 03/05/24 08/30/25 08/30/25 07:50 Rx tablet,extended release 24 hr nitroglycerin 0.4 mg sublingual See Rx Instructions .Route .COMPLEX 07/27/23 12/10/24 2 Months Ago History tablet ~09/09/24 carbidopa 25 mg-levodopa 100 mg 1 tab PO TID 03/01/24 12/10/24 12/10/24 11:00 History tablet furosemide 40 mg tablet 40 mg PO DAILY 05/30/24 12/10/24 12/10/24 07:55 History lactulose 10 gram/15 mL oral 30 ml PO BID PRN Constipation 09/23/24 12/10/24 12/05/24 11:00 History solution (Constulose) polyethylene glycol 3350 17 17 g PO DAILY PRN Constipation 09/23/24 12/10/24 Unknown History gram/dose oral powder (ClearLax) naproxen 500 mg tablet 500 mg PO BID 10/08/24 12/10/24 12/10/24 07:50 History scopolamine base 1 mg over 3 days 1 patch topical Q3D 10/08/24 12/10/24 11/27/24 08:20 History transdermal patch tizanidine 4 mg tablet 4 mg PO TID PRN Pain 10/08/24 12/10/24 2 Weeks Ago History ~10/26/24 chlorzoxazone 250 mg tablet 250 mg PO TID PRN muscle spasms 11/02/24 12/10/24 11/09/24 History ibuprofen 600 mg tablet 600 mg PO TID PRN Pain 11/02/24 12/10/24 12/08/24 06:25 History jfhdbowhetza-fnvpjayx-ijnypq 1 tab PO DAILY 11/02/24 12/10/24 12/10/24 07:50 History tablet (Multivitamin 50 Plus tablet) olanzapine 5 mg tablet 5 mg PO BEDTIME 11/02/24 12/10/24 12/09/24 21:20 History insulin glargine 100 unit/mL (3 85 unit SUBCUT BID 11/09/24 12/10/24 12/10/24 07:55 History mL) subcutaneous pen (Lantus Solostar U-100 Insulin) clopidogrel 75 mg tablet 75 mg PO DAILY 11/10/24 12/10/24 12/10/24 07:55 History hydrocodone 5 mg-acetaminophen 325 1 tab PO Q6H PRN Pain 11/19/24 12/10/24 12/10/24 06:00 History mg tablet ondansetron 4 mg disintegrating 4 mg PO Q8H PRN Nausea And Vomiting 11/19/24 12/10/24 Unknown History tablet potassium chloride 20 mEq 20 meq PO DAILY 11/19/24 12/10/24 12/10/24 07:50 History tablet,extended release tamsulosin 0.4 mg capsule 0.4 mg PO DAILY 11/19/24 12/10/24 12/10/24 07:50 History cefdinir 300 mg capsule 300 mg PO BID #14 caps 11/21/24 12/10/24 12/10/24 06:00 Rx amlodipine 10 mg tablet 10 mg PO DAILY 12/10/24 12/10/24 12/10/24 07:50 History Allergies Allergy/AdvReac Type Severity Reaction Status Date / Time No Known Allergies Allergy Verified 11/29/24 15:16 Current Medications Generic Name Dose Route Start Last Admin Trade Name Freq PRN Reason Stop Dose Admin Dextrose 250 mls @ 1,000 mls/hr 12/10/24 14:48 12/10/24 17:41 D10w IV Infused PRN PRN Infusion HYPOGLYCEMIA PFSH Acute PFSH: Medical History (Updated 12/10/24 @ 17:18 by Ling Wei MD) Parkinson disease Urinary tract infection CÉSAR (obstructive sleep apnea) Hyperlipidemia HTN (hypertension) ASHD (arteriosclerotic heart disease) Diabetes Hyperglycemia JULIET (acute kidney injury) Elbow contusion Dystonic tremor Acute on chronic renal failure Urinary retention Acute renal failure 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 Essential tremor Cough Exposure to COVID-19 virus Chronic diarrhea Diabetic foot ulcer CKD (chronic kidney disease) (~10/12/20) Obesity Myocardial infarction Surgical History S/P eye surgery Status post colonoscopy (12/24/20) sigmoid polyp Status post amputation of toe S/P angioplasty with stent Family History Mother CAD (coronary artery disease) Diabetes Social History Smoking and tobacco/nicotine status: former use of tobacco/nicotine Alcohol intake: former Substance/Drug Use: never Lives independently: Yes Household members: other Details: DOG Marital status: service: No Current occupational status: disabled 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 Vitals/I&O/Wt Last Vital Signs Temp 98.3 F 12/10/24 17:45 Pulse 66 12/10/24 17:45 Resp 24 H 12/10/24 17:45 BP 155/81 12/10/24 17:45 Pulse Ox 90 12/10/24 17:45 O2 Del Method Nasal Cannula 12/10/24 17:45 O2 Flow Rate 3.5 12/10/24 17:37 12/10/24 12/10/24 12/10/24 06:59 14:59 22:59 Intake Total 1250 / 1250 Balance 1250 / 1250 Weight last 48 hrs Weight 126.099 kg Weight 126.099 kg Physical Exam Narrative: awake , alert , no distress PEERLA S1S2 RRR per medicine Lungs clear per report Abd , soft , non tender no edema Urinary Catheter Management: Salazar: Cath Placed During This Visit: yes Urinary Catheter Date of Insertion: 12/10/24 Urinary Catheter Time of Insertion: 18:07 Data 12/10/24 14:06 12/10/24 14:06 A&P Assessment and plan 1. JULIET (acute kidney injury): 1. Acute on chronic kidney disease stage III: Baseline creatinine seems to be in the mid 1 range and patient followed by nephrology as outpatient. - Patient now have JULIET most likely prerenal in the setting of poor p.o. intake and also NSAID use (taking naproxen at the snf). - Agree with IV fluid resuscitation-increased the rate to 100 cc an hour, no acute indication for dialysis currently - No hydronephrosis on CT - Monitor urine output and renal function closely 2. Hyperkalemia: Status post medical management, await repeat BMP, low K diet 3. 3. Hypoglycemia, on D10 infusion 4. History of CHF, monitor closely while on IV fluids 5. Anemia, hemoglobin 7.2, will order NAMRATA Patient evaluated using audiovisual cart. Time spent 40 minutes. PDMP PDMP Reviewed: Not Reviewed Consult Attestations Medical Necessity Statement: Per medicine Coding Level of Care Code Acute Code for Chg Fwd Diagnoses JULIET (acute kidney injury) N17.9
[2024-12-10] MEDS: calcium gluconate 0.1 gm/mL 10% SDV 10mL 1 GM IVP (18:39)
[2024-12-10 20:34] LABS: Hematocrit 25.2 % (37-53); Hemoglobin 7.50 g/dL (11.27-16.99); Mean Corpuscular HGB Conc 29.8 g/dL (30-55); Mean Corpuscular Hemoglobin 27.6 pg (27-33); Mean Corpuscular Volume 92.6 fl (82-101); Nucleated Red Blood Cells % 0 %; Platelet Count 219 10^3/cmm (157-399); Red Blood Count 2.72 10^6/uL (3.85-5.65); White Blood Count 9.96 10^3/uL (3.29-11.43)
[2024-12-10 20:53] LABS: Troponin(5th) Baseline 33 ng/L (0-15)
[2024-12-10 20:54] LABS: Estmated Average Glucose 192; Hemoglobin A1C 8.3 % (4.0-6.0)
[2024-12-10 20:55] LABS: Lactic Sepsis W/Reflex 1.0 mmol/L (0.5-2.2)
[2024-12-10] MEDS: carbidopa-levodopa 25-100mg Tablet 0.5 EACH PO (20:55)
[2024-12-10 21:53] LABS: Anion Gap 21.0 (5-19); Blood Urea Nitrogen 71 mg/dL (8-23); Calcium 8.9 mg/dL (8.5-10.5); Carbon Dioxide 21 mmol/L (22-29); Chloride 103 mmol/L (98-107); Cholesterol 140 mg/dL (0-200); Creatinine Clr Calc Pharmacy 25.0581; Glucose 84 mg/dL (65-115); HDL Cholesterol 50 mg/dL (60-100); NT Pro B Type Natriuretic Pept 6064 pg/mL (0-125); Osmolality Calculated 308 mOsm/kg (285-295); Potassium 6.0 mmol/L (3.5-5.1); Procalcitonin 0.30 ng/mL (0-0.5); Sodium 139 mmol/L (136-145); Thyroid Stimulating Hormone 1.69 uIU/mL (0.27-4.20); Triglycerides 71 mg/dL (0-150)
[2024-12-10 23:19] LABS: Troponin 5 2HR 32.63 ng/L (0-15)
[2024-12-10 23:22] LABS: Troponin 5 2HR Delta -0.37 ABS# (0-10)
--- NOTE | 2024-12-10 23:26 | ECG_ITS ---
[facility] 2024-[facility]11 Pat Name: Yaya Astudillo Department: Room: 269 Gender: Male Physical Therapist Aide: : 1955 Requested By: Ling Wei Order Number: [id number] Armando MD: Juno Tijerina M.D. Measurements Intervals [place] Rate: 67 P: -9 RI: 189 QRS: -13 QRSD: 88 T: 51 QT: 399 QTc: 422 Interpretive Statements SINUS RHYTHM LOW QRS VOLTAGE IN PRECORDIAL LEADS [QRS DEFLECTION < 1.0 mV IN CHEST LEADS] WARNING: DATA QUALITY MAY AFFECT INTERPRETATION Compared to ECG 12/10/2024 17:51:18 NO SIGNIFICANT CHANGE Electronically Signed On 12-12-2024 13:50:08 CDT by Juno Tijerina M.D. [email or web address] [id number]
[2024-12-11] VITALS (10 sets, daily range): BP systolic 109–149; BP diastolic 65–89; PULSE 63–86; RESP 16–20; TEMP 36.5–37.1; O2SAT 90–95
--- NOTE | 2024-12-11 01:20 | PC.NURSE ---
This nurse did not administer iv fluids due to patient wheezing and having crackles in the bases of his lungs.
[2024-12-11 02:47] LABS: Hematocrit 23.3 % (37-53); Hemoglobin 7.00 g/dL (11.27-16.99); Mean Corpuscular HGB Conc 30.0 g/dL (30-55); Mean Corpuscular Hemoglobin 27.5 pg (27-33); Mean Corpuscular Volume 91.4 fl (82-101); Nucleated Red Blood Cells % 0 %; Platelet Count 189 10^3/cmm (157-399); Red Blood Count 2.55 10^6/uL (3.85-5.65); White Blood Count 9.51 10^3/uL (3.29-11.43)
[2024-12-11 03:06] LABS: Troponin 5 6HR 31.81 ng/L (0-15)
--- NOTE | 2024-12-11 03:06 | PC.NURSE ---
Patients hgb at 0215 was at 7. This nurse advised Dr. Platt of this and Dr. Platt said to repeat labs when able.
[2024-12-11 03:08] LABS: Troponin 5 6HR Delta -1.19 ng/L (0-12)
[2024-12-11 03:32] LABS: Vitamin B12 385 pg/mL (232-1245)
[2024-12-11 03:45] LABS: Alanine Aminotransferase < 5 U/L (0-41); Albumin Level 3.3 g/dL (3.5-5.2); Alkaline Phosphatase 117 U/L (40-130); Anion Gap 16.9 (5-19); Aspartate Amino Transferase 22 U/L (0-40); Blood Urea Nitrogen 73 mg/dL (8-23); Calcium 8.4 mg/dL (8.5-10.5); Carbon Dioxide 23 mmol/L (22-29); Chloride 103 mmol/L (98-107); Globulin 2.9 g/dL (1.3-4.6); Glucose 43 mg/dL (65-115); Magnesium 3.0 mg/dL (1.7-2.3); Osmolality Calculated 304 mOsm/kg (285-295); Potassium 4.9 mmol/L (3.5-5.1); Sodium 138 mmol/L (136-145); Total Protein 6.2 g/dL (6.6-8.7)
[2024-12-11 03:48] LABS: Creatinine Clr Calc Pharmacy 25.7740
[2024-12-11 03:49] LABS: Total Iron Binding Capacity 246 mcg/dl; Unsaturated Iron Binding 219 ug/dL (112-347)
--- NOTE | 2024-12-11 04:01 | PC.NURSE ---
Dr. Platt was contacted about patients potassium being high and the patients blood sugar being low. No response was given to messages seen below Yaya Astudillo in 269 came in today with JULIET and anemia. He had labs drawn at 2030 this evening and his potassium is at 6. He was given 15gm of PO kayexalate and 1 gm IVP calcium gluconate at 1839 today. Yaya Astudillo in 269 has a blood sugar of 55. We are giving him juice and will re assess in 15 minutes.
[2024-12-11 04:03] LABS: Ferritin 689 ng/mL (30-400); Iron 27 ug/dL (59-158)
[2024-12-11] MEDS: morphine 4 mg/mL SDV 1 mL IVP ×2 (06:09→22:49)
--- NOTE | 2024-12-11 08:03 | P.PN_ITS ---
Subjective 2 Subjective: on 3.5 l o2 NC Medications: Reviewed: Yes Vitals/I&O/Wt Last Vital Signs Temp 98.4 F 12/10/24 23:51 Pulse 86 12/11/24 07:14 Resp 20 H 12/11/24 07:14 BP 149/89 12/11/24 07:14 Pulse Ox 94 12/11/24 07:14 O2 Del Method Nasal Cannula 12/11/24 07:14 O2 Flow Rate 3 12/11/24 07:14 12/10/24 12/11/24 12/11/24 22:59 06:59 14:59 Intake Total 1250 / 1250 Output Total 400 / 400 250 / 650 Balance 850 / 850 -250 / 600 Weight last 48 hrs Weight 114.94 kg Weight 126.099 kg Weight 126.099 kg Physical Exam 2 Narrative: awake , alert , no distress PEERLA S1S2 RRR per medicine Lungs clear per report Abd , soft , non tender no edema Urinary Catheter Management: Salazar: Cath Placed During This Visit: yes Reason for Continuing Indwelling Catheter: Other Urinary Catheter Date of Insertion: 12/10/24 Urinary Catheter Time of Insertion: 18:07 Data 12/11/24 02:15 12/11/24 02:15 Micro: Microbiology 12/10/24 20:10 Blood Culture - Preliminary Blood SPECIMEN COLLECTED 12/10/24 20:15 Blood Culture - Preliminary Blood SPECIMEN COLLECTED A&P Assessment and plan 1. JULIET (acute kidney injury): 1. Acute on chronic kidney disease stage III: Baseline creatinine seems to be in the mid 1 range and patient followed by nephrology as outpatient. - Patient now have JULIET most likely prerenal in the setting of poor p.o. intake and also NSAID use (taking naproxen at the correction). - S/P IV fluid resuscitation, Encourage PO intake , - No hydronephrosis on CT - Monitor urine output and renal function closely 2. Hyperkalemia: Status post medical management, improved 3. Hypoglycemia, s/p D10 infusion 4. History of CHF, monitor closely while on IV fluids 5. Anemia, hemoglobin 7.2, will order NAMRATA Patient evaluated using audiovisual cart. Time spent 40 minutes. PDMP PDMP Reviewed: Not Reviewed Attestations 2 Medical Necessity Statement*: per medicine Coding Level of Care Code Acute Code for Chg Fwd Diagnoses JULIET (acute kidney injury) N17.9
[2024-12-11] MEDS: carbidopa-levodopa 25-100mg Tablet 0.5 EACH PO ×3 (08:31→21:04)
--- NOTE | 2024-12-11 11:57 | P.PN_ITS ---
Subjective 2 Subjective: Seen this morning. Hemoglobin 7. Indicated for iron deficiency anemia. With component of anemia of chronic disease UA 2+ leukocyte esterase 51-100 WBCs FOBT pending Glucose still 43. Patient on D10 drip. Laying in bed. States he feels a bit better. Chest x-ray notes interstitial disease right lower lobe. Vitals/I&O/Wt Last Vital Signs Temp 97.7 F 12/11/24 11:05 Pulse 71 12/11/24 11:05 Resp 20 H 12/11/24 11:05 BP 109/65 12/11/24 11:05 Pulse Ox 90 12/11/24 11:05 O2 Del Method Nasal Cannula 12/11/24 11:05 O2 Flow Rate 2 12/11/24 11:05 12/10/24 12/11/24 12/11/24 22:59 06:59 14:59 Intake Total 1250 / 1250 240 / 240 Output Total 400 / 400 250 / 650 Balance 850 / 850 -250 / 600 240 / 240 Weight last 48 hrs Weight 114.94 kg Weight 126.099 kg Weight 126.099 kg Physical Exam 2 Narrative: General: Alert oriented x3, patient seen laying in bed, appears more energetic today. HEENT: Normocephalic, atraumatic, EOMI, 2 L nasal cannula at this time. Cardio: Regular rate rhythm, normal S1-S2, Respiratory: Clear to auscultation bilaterally no wheezes no rhonchi. Patient laying flat denies shortness of breath at this time. GI: Abdomen soft, nontender, bowel sounds + Behavior: Appropriate and cooperative, Extremities: No edema bilateral lower extremities Urinary Catheter Management: Salazar: Cath Placed During This Visit: yes Reason for Continuing Indwelling Catheter: Other Urinary Catheter Date of Insertion: 12/10/24 Urinary Catheter Time of Insertion: 18:07 Data 12/11/24 02:15 12/11/24 02:15 Micro: Microbiology 12/10/24 14:06 Urine Culture - Preliminary Urine,Clean Catch Gram Negative Rods 12/10/24 20:10 Blood Culture - Preliminary Blood SPECIMEN COLLECTED 12/10/24 20:15 Blood Culture - Preliminary Blood SPECIMEN COLLECTED A&P Assessment and plan 1. HTN (hypertension): 2. Hyperlipidemia: 3. PVC (premature ventricular contraction): 4. JULIET (acute kidney injury): 5. Urinary tract infection: 6. CÉSAR (obstructive sleep apnea): 7. CKD (chronic kidney disease): 8. Acute renal failure: 9. Essential tremor: 10. Obesity: 11. Hypoglycemia: 12. Weakness: 13. JULIET (acute kidney injury): 14. Congestive heart failure: 15. Diabetic neuropathy associated with type 2 diabetes mellitus: 16. Acute hyperkalemia: Plan: #Hypoglycemia #Acute kidney injury #Hyperkalemia #Anemia #Insulin-dependent diabetes mellitus #UTI #Coronary artery disease #Systolic heart failure EF 45 to 50% #Parkinson's disease #Hypertension #Obstructive sleep apnea #Hyperlipidemia #Urinary tension #Essential tremor #CKD #Morbid obesity - Patient has a history anemia in the past as well however today hemoglobin is 7.2. Denies hematuria hematochezia, hemoptysis. Has been feeling weak. Will check iron studies ? Patient is also dehydrated. Will provide gentle IV fluid hydration. ? Does have bilateral pleural effusions however at this time due to oliguria (per patient) and JULIET we will provide gentle IV fluid hydration. ? Potassium 5.7. Hyperkalemia. Most likely secondary to acute renal failure. Creatinine now 3.6. Patient's baseline is between 1.5-1.7. BUN 71. Patient hypoglycemic on admission with blood sugar 48. On insulin at home. We will hold long-acting Lantus at this time. ? Hypoglycemic most likely secondary to renal failure. ? Check hemoglobin A1c ? Accu-Chek ACHS however we will hold off on adding sliding scale at this time. Would like to monitor blood sugar ? Ordered D10 bolus ? Continue aspirin Plavix carbidopa-levodopa ? Hold Lasix at this time. ? Continue metoprolol tartrate 25 twice daily (dose reduced from 50 twice daily at home) ? Reduce Imdur to 30 daily. ? Hold home potassium. ? Hold tamsulosin ? Check urine culture, blood culture ? CPAP at nighttime ? Check CBC every 12 hours. Transfuse for hemoglobin less than 7. ? Repeat cardiac echo ? Consult nephrology. -Check troponin and EKG series. ? Order calcium gluconate x 1 for hyperkalemia and sodium bicarbonate 650 x 1. ? Due to hypoglycemia earlier I will refrain from using insulin with dextrose at this time. ? Will place on D10 drip DNR/DNI DVT prophylaxis: SCDs. 12/11/2024 Place a PICC line Continue D10 drip. Continue aspirin atorvastatin isorsorbide moninitrate 30 mg Continue to lower nasal cannula Protonix 40 daily Sodium bicarb 650 x 1 given yesterday. Per kalemia has resolved Gram-negative rods in urine culture Blood culture pending Nephrology following No acute indication for dialysis at this time Kayexalate also given yesterday. No bowel movement yet Iron-deficiency anemia with component anemia chronic disease. Hemoglobin 7. Will transfuse 1 unit of blood today. Hemoglobin A1c 8.3. Hold home Lantus and sliding scale at this time. Continue check blood glucose as patient requiring D10 drip. He is having hypoglycemic episodes with 42 this morning. Will discuss with nephrology order albumin with Lasix. BNP 6000. Echocardiogram pending at this time PDMP PDMP Reviewed: Not Reviewed Attestations 2 Medical Necessity Statement*: Multiple medical issues at this time. Acute kidney injury/acute renal failure, hypoglycemia, UTI, Parkinson's disease With intermittent stay for management of above. Diagnoses HTN (hypertension) I10 Hyperlipidemia E78.5 PVC (premature ventricular contraction) I49.3 JULIET (acute kidney injury) N17.9 Urinary tract infection N39.0 CÉSAR (obstructive sleep apnea) G47.33 CKD (chronic kidney disease) N18.9 Acute renal failure N17.9 Essential tremor G25.0 Obesity E66.9 Hypoglycemia E16.2 Weakness R53.1 Congestive heart failure I50.9 Diabetic neuropathy associated with type 2 diabetes mellitus E11.40 Acute hyperkalemia E87.5
--- NOTE | 2024-12-11 12:03 | USCV_ITS ---
Yaya Astudillo Age: 69 Gender: M : 1955 Exam Date: 12/11/2024 14:23 Ordering Phys: Ling Wei MD Technologist: Tj Flanagan Exam Location: [facility] – [place] Indication: HF BP: 109 / 65 HR: 75 Rhythm: Sinus Technical Quality: Adequate MEASUREMENTS (Male / Female) Normal Values 2D ECHO LV Diastolic Diameter PLAX 5.8 cm 4.2 - 5.9 / 3.9 - 5.3 cm IVS Diastolic Thickness 0.9 cm 0.6 - 1.0 / 0.6 - 0.9 cm IVS Systolic Thickness 1.4 cm LVPW Diastolic Thickness 0.9 cm 0.6 - 1.0 / 0.6 - 0.9 cm LVPW Systolic Thickness 1.8 cm LVOT Diameter 2.1 cm LV Ejection Fraction 2D Teich 72.4 % LV Ejection Fraction MOD 4C 52.4 % LV Ejection Fraction MOD 2C 54.9 % LV Ejection Fraction 2C AL 52.9 % LA Diameter 3.8 cm RA Systolic Volume 4C AL 57.2 ml RA Systolic Volume 4C MOD 57.2 ml LA Sys Volume AL 49.2 cm cubed LA Sys Volume Index AL 20.5 cm cubed/m squared Aorta at Sinotubular Diameter 2.6 cm IVC Diameter 2.0 cm M-MODE LA Ao Ratio MM 1.5 AV Cusp Separation MM 2.0 cm DOPPLER AV Peak Velocity 115.8 cm/s LVOT Peak Velocity 90.0 cm/s AV Area Cont Eq vti 2.4 cm squared AV Area Cont Eq pk 2.6 cm squared MV Peak Velocity 125.0 cm/s MV Area PHT 6.0 cm squared Mitral E to A Ratio 1.3 TV Peak Velocity 308.0 cm/s TR Peak Velocity 309.0 cm/s TR Peak Gradient 38.2 mmHg TR Mean Velocity 262.0 cm/s TR Mean Gradient 28.6 mmHg TR Velocity Time Integral 95.0 cm PV Peak Velocity 88.7 cm/s RV Ejection Time 0.3 s FINDINGS Left Ventricle Normal left ventricular cavity size. Septal hypokinesis of [place] left ventricle with overall low normal EF 52%. Normal left ventricular wall thickness. Normal diastolic function. Right Ventricle Normal right ventricular size and systolic function. Mild pulmonary hypertension, RVSP 41 mmHg. Right Atrium Normal right atrial size. Left Atrium Normal left atrial size. Mitral Valve No mitral valve stenosis. No mitral valve regurgitation. Aortic Valve No aortic valve stenosis. No aortic valve regurgitation. Tricuspid Valve Mild tricuspid valve regurgitation. Pulmonic Valve No pulmonary valve stenosis. No pulmonary valve regurgitation. Pericardium No pericardial effusion. Aorta Normal size aortic root and proximal ascending aorta. IVC Normal inferior vena cava. CONCLUSIONS 1. Septal hypokinesis of the left ventricle with overall low normal EF 52%. 2. Mild tricuspid valve regurgitation 3. Mild pulmonary hypertension, RVSP 41 mmHg. Juno Tijerina MD, FACC (Electronically Signed) Final Date: 13 December 2024 00:27 S
[2024-12-11 16:04] LABS: Hematocrit 25.5 % (37-53); Hemoglobin 7.60 g/dL (11.27-16.99); Mean Corpuscular HGB Conc 29.8 g/dL (30-55); Mean Corpuscular Hemoglobin 27.3 pg (27-33); Mean Corpuscular Volume 91.7 fl (82-101); Nucleated Red Blood Cells % 0 %; Platelet Count 213 10^3/cmm (157-399); Red Blood Count 2.78 10^6/uL (3.85-5.65); White Blood Count 8.82 10^3/uL (3.29-11.43)
[2024-12-11] MEDS: cefTRIAXone 1,000 mg SDV 1000 MG IVP (17:05)
[2024-12-12] VITALS (10 sets, daily range): BP systolic 154–179; BP diastolic 67–81; PULSE 70–81; RESP 16–20; TEMP 36.4–36.8; O2SAT 90–94
--- NOTE | 2024-12-12 01:25 | PC.NURSE ---
Patient complained of being hot. Nurse checked blood sugar and it was 48. Patient was awake and able to talk. Patient was given orange juice and zachery crackers and nurse started ordered d10 at 60mls/hr. Patients blood sugar to be reassessed in 15 minutes.
[2024-12-12 04:59] LABS: Hematocrit 27.4 % (37-53); Hemoglobin 8.20 g/dL (11.27-16.99); Mean Corpuscular HGB Conc 29.9 g/dL (30-55); Mean Corpuscular Hemoglobin 28.2 pg (27-33); Mean Corpuscular Volume 94.2 fl (82-101); Nucleated Red Blood Cells % 0 %; Platelet Count 231 10^3/cmm (157-399); Red Blood Count 2.91 10^6/uL (3.85-5.65); White Blood Count 10.83 10^3/uL (3.29-11.43)
[2024-12-12] MEDS: morphine 4 mg/mL SDV 1 mL IVP ×2 (05:53→21:58)
[2024-12-12] MEDS: FUROsemide 10 mg/mL SDV 10mL 60 MG IVP (06:09)
[2024-12-12 07:09] LABS: Alanine Aminotransferase 6 U/L (0-41); Albumin Level 3.3 g/dL (3.5-5.2); Alkaline Phosphatase 130 U/L (40-130); Anion Gap 20.5 (5-19); Aspartate Amino Transferase 15 U/L (0-40); Blood Urea Nitrogen 72 mg/dL (8-23); Calcium 8.7 mg/dL (8.5-10.5); Carbon Dioxide 20 mmol/L (22-29); Chloride 100 mmol/L (98-107); Creatinine Clr Calc Pharmacy 27.0896; Globulin 4.1 g/dL (1.3-4.6); Glucose 148 mg/dL (65-115); Magnesium 3.0 mg/dL (1.7-2.3); Osmolality Calculated 304 mOsm/kg (285-295); Potassium 5.5 mmol/L (3.5-5.1); Sodium 135 mmol/L (136-145); Total Protein 7.4 g/dL (6.6-8.7)
--- NOTE | 2024-12-12 08:13 | PC.SOCIAL ---
IMM Update Pg 2 of IMM Updated. Copy provided at bedside.
[2024-12-12] MEDS: carbidopa-levodopa 25-100mg Tablet 0.5 EACH PO ×3 (08:36→21:58)
[2024-12-12] MEDS: citric acid-sodium citrate 30 mL UDC 60 ML PO (08:38)
--- NOTE | 2024-12-12 09:39 | PM.PN ---
Subjective Subjective: c/o constipation Medications: Reviewed: Yes Vitals/I&O/Wt Last Vital Signs Temp 97.8 F 12/12/24 07:38 Pulse 78 12/12/24 07:38 Resp 17 12/12/24 07:38 BP 172/67 12/12/24 07:38 Pulse Ox 91 12/12/24 07:38 O2 Del Method Nasal Cannula 12/12/24 07:38 O2 Flow Rate 3 12/12/24 07:38 12/11/24 12/12/24 12/12/24 22:59 06:59 14:59 Intake Total 240 / 480 217 / 697 240 / 240 Output Total 750 / 750 Balance -510 / -270 217 / -53 240 / 240 Weight last 48 hrs Weight 117.169 kg Weight 114.94 kg Weight 126.099 kg Weight 126.099 kg Physical Exam Narrative: awake , alert , no distress PEERLA S1S2 RRR per medicine Lungs clear per report Abd , soft , non tender no edema Urinary Catheter Management: Salazar: Cath Placed During This Visit: yes Reason for Continuing Indwelling Catheter: Acute Urinary Retention or Obstruction Urinary Catheter Date of Insertion: 12/10/24 Urinary Catheter Time of Insertion: 18:07 Data 12/12/24 03:40 12/12/24 06:33 Micro: Microbiology 12/10/24 14:06 Urine Culture - Final Urine,Clean Catch Enterobacter cloacae 12/10/24 20:10 Blood Culture - Preliminary Blood NEGATIVE TO DATE 12/10/24 20:15 Blood Culture - Preliminary Blood NEGATIVE TO DATE A&P Assessment and plan 1. JULIET (acute kidney injury): 1. Acute on chronic kidney disease stage III: Baseline creatinine seems to be in the mid 1 range and patient followed by nephrology as outpatient. - Patient now have JULIET most likely prerenal in the setting of poor p.o. intake and also NSAID use (taking naproxen at the long-term). - S/P IV fluid resuscitation, Encourage PO intake , - No hydronephrosis on CT -renal fxn better , resumed lasix 2. Hyperkalemia: placed on low K diet 3. Hypoglycemia, s/p D10 infusion 4. History of CHF, resumed lasix 5. Anemia, hemoglobin 7.2, will order NAMRATA Patient evaluated using audiovisual cart. Time spent 40 minutes. PDMP PDMP Reviewed: Not [facility]ed [facility]cessity Statement*: per medicine Coding Level of Care Code Acute Code for Chg Fwd Diagnoses JULIET (acute kidney injury) N17.9
--- NOTE | 2024-12-12 10:29 | XRR_ITS ---
PROCEDURE INFORMATION: Exam: XR Abdomen Exam date and time: 12/12/2024 10:43 AM Age: 69 years old Clinical indication: Abdominal pain; Acute; Additional info: Possible obstruction TECHNIQUE: Imaging protocol: Radiologic exam of the abdomen. Views: Frontal supine view of the abdomen. 1 View. COMPARISON: CT kidney stone [id number] 12/10/2024 3:33 PM FINDINGS: Gastrointestinal tract: Mildly prominent gas distended loops of bowel in the right abdomen measuring up to 4.8 cm in diameter. Moderate colonic stool is present, particularly apparent in the right hemicolon. Intraperitoneal space: No overt evidence of intra-abdominal free air. Bones/joints: Degenerative changes of the spine. XR/XR KUB portable [id number] IMPRESSION: Mildly prominent gas distended loops of bowel in the right abdomen. Given moderate colonic stool, findings may reflect constipation/colonic dysmotility with ileus or less likely evolving/partial small bowel obstruction as additional diagnostic considerations. Consider radiographic follow-up or CT for further evaluation as clinically warranted.
--- NOTE | 2024-12-12 12:22 | PC.NURSE ---
Patient has SCD's ordered and the provider states he will not be ordering anything else because of his anemia.
[2024-12-12 13:46] LABS: Blood Urea Nitrogen 70 mg/dL (8-23); Calcium 8.7 mg/dL (8.5-10.5); Carbon Dioxide 19 mmol/L (22-29); Chloride 100 mmol/L (98-107); Creatinine Clr Calc Pharmacy 28.8956; Glucose 127 mg/dL (65-115); Osmolality Calculated 304 mOsm/kg (285-295); Sodium 136 mmol/L (136-145)
[2024-12-12 13:58] LABS: Anion Gap 22.5 (5-19); Potassium 5.5 mmol/L (3.5-5.1)
--- NOTE | 2024-12-12 16:13 | P.PN_ITS ---
Subjective 2 Subjective: Patient was seen this morning, he reports that he is passing gas from below, does report abdominal distention, has not had a bowel movement in a few days, we discussed his anemia and his JULIET and hyperkalemia, will monitor his potassium he is hemoglobin, he has received Lasix this morning, will start him on a bowel regimen, he is in agreement, he does also complain of shortness of breath, and lower extremity edema, Vitals/I&O/Wt Last Vital Signs Temp 97.6 F 12/12/24 11:22 Pulse 81 12/12/24 11:22 Resp 20 H 12/12/24 11:22 BP 163/77 12/12/24 11:22 Pulse Ox 91 12/12/24 07:38 O2 Del Method Nasal Cannula 12/12/24 10:00 O2 Flow Rate 3 12/12/24 10:00 12/12/24 12/12/24 12/12/24 06:59 14:59 22:59 Intake Total 217 / 697 480 / 480 Output Total 600 / 600 Balance 217 / -53 -120 / -120 Weight last 48 hrs Weight 117.169 kg Weight 114.94 kg Weight 126.099 kg Physical Exam 2 Const: COMMON NORMALS: no acute distress and patient oriented x3 Resp: COMMON NORMALS: normal respiratory effort, No retractions and No use of accessory muscles AUSCULTATION: crackles Cardio: COMMON NORMALS: regular rate, regular rhythm, S1 normal heart sound present and S2 normal heart sound present RATE: regular rate RHYTHM: r egular rhythm HEART SOUNDS: S1 normal heart sound present and S2 normal heart sound present GI: COMMON NORMALS: Normal to inspection, nondistended, normoactive bowel sounds present and non-tender Extremity: NARRATIVE EXTREMITY EXAM: 2+ edema Neuro: COMMON NORMALS: patient oriented x3 Psych: COMMON NORMALS: mental status grossly normal Urinary Catheter Management: Salazar: Cath Placed During This Visit: yes Reason for Continuing Indwelling Catheter: Acute Urinary Retention or Obstruction Urinary Catheter Date of Insertion: 12/10/24 Urinary Catheter Time of Insertion: 18:07 Data 12/12/24 03:40 12/12/24 13:23 Micro: Microbiology 12/10/24 14:06 Urine Culture - Final Urine,Clean Catch Enterobacter cloacae 12/10/24 20:10 Blood Culture - Preliminary Blood NEGATIVE TO DATE 12/10/24 20:15 Blood Culture - Preliminary Blood NEGATIVE TO DATE A&P Assessment and plan 1. HTN (hypertension): 2. Hyperlipidemia: 3. PVC (premature ventricular contraction): 4. JULIET (acute kidney injury): 5. Urinary tract infection: 6. CÉSAR (obstructive sleep apnea): 7. CKD (chronic kidney disease): 8. Acute renal failure: 9. Essential tremor: 10. Obesity: 11. Hypoglycemia: 12. Weakness: 13. JULIET (acute kidney injury): 14. Congestive heart failure: 15. Diabetic neuropathy associated with type 2 diabetes mellitus: 16. Acute hyperkalemia: Plan: #Hypoglycemia -Last blood sugar 160 - Monitor blood sugar closely every 2 hours #Acute kidney injury -Creatinine 3.0 -Will hold off of fluids due to concern for fluid overload #Hyperkalemia -Has received Lasix this morning -Has received Kayexalate this morning -Recheck potassium this afternoon 5.5 -Will give insulin, D10, calcium gluconate -Recheck potassium this evening #Anemia -Ferritin 689, iron 27 -Recheck hemoglobin this evening #Insulin-dependent diabetes mellitus -Insulin currently on hold due to hypoglycemia #UTI -Enterobacter cloacae -Continue Rocephin #Coronary artery disease -Continue aspirin, Plavix, Imdur #Systolic heart failure EF 45 to 50%, in exacerbation -Crackles on examination, shortness of breath, 2+ pitting edema -Status post 60 mg IV Lasix this morning -S/p 40 mg p.o. Lasix this morning - Start Lasix 40 IV twice daily # Constipation -Start bowel regimen -Repeat KUB -Will consider repeat CT scan based on clinical progress #Parkinson's disease #Hypertension #Obstructive sleep apnea #Hyperlipidemia #Essential tremor #CKD #Morbid obesity DNR/DNI DVT prophylaxis: SCDs. PICC line in place Plan for today, monitor hyperkalemia, with intervention, monitor hemoglobin, monitor for bowel movement, serial abdominal exams PDMP PDMP Reviewed: Not Reviewed Attestations 2 Medical Necessity Statement*: Patient requires hospitalization for hypoglycemia, JULIET, hyperkalemia, CHF, Diagnoses HTN (hypertension) I10 Hyperlipidemia E78.5 PVC (premature ventricular contraction) I49.3 JULIET (acute kidney injury) N17.9 Urinary tract infection N39.0 CÉSAR (obstructive sleep apnea) G47.33 CKD (chronic kidney disease) N18.9 Acute renal failure N17.9 Essential tremor G25.0 Obesity E66.9 Hypoglycemia E16.2 Weakness R53.1 Congestive heart failure I50.9 Diabetic neuropathy associated with type 2 diabetes mellitus E11.40 Acute hyperkalemia E87.5
--- NOTE | 2024-12-12 16:36 | CTR_ITS ---
PROCEDURE INFORMATION: Exam: CT Abdomen And Pelvis Without Contrast Exam date and time: 12/12/2024 7:59 PM Age: 69 years old Clinical indication: Abdominal pain; Additional info: Bowel obstruction? TECHNIQUE: Imaging protocol: Computed tomography of the abdomen and pelvis without contrast. Radiation optimization: All CT scans at this facility use at least one of these dose optimization techniques: automated exposure control; mA and/or kV adjustment per patient size (includes targeted exams where dose is matched to clinical indication); or iterative reconstruction. COMPARISON: CT kidney stone [id number] 12/10/2024 3:33 PM RADIATION DOSE METRICS: Total DLP (mGy-cm): 1124.42 FINDINGS: Pleural spaces: Moderate to large right and small left pleural effusions partially visualized. Near-complete collapse of the right lower lobe and significant atelectatic changes in the left lower lobe. Coronary arteries: Coronary arterial atherosclerotic calcifications are present. Liver: Normal. No mass. Gallbladder and biliary ducts: Sludge versus stones layering in the gallbladder. Pancreas: Normal. No ductal dilation. Spleen: Normal. No splenomegaly. Adrenal glands: Normal. No mass. Kidneys and ureters: Normal. No hydronephrosis. Stomach and bowel: Unremarkable. No obstruction. No mucosal thickening. Appendix: No evidence of appendicitis. Intraperitoneal space: Unremarkable. No free air. No significant fluid collection. Vasculature: Unremarkable. No abdominal aortic aneurysm. Lymph nodes: Unremarkable. No enlarged lymph nodes. Urinary bladder: There is a Salazar catheter in the bladder. Reproductive: Unremarkable as visualized. Bones/joints: Unremarkable. No acute fracture. Soft tissues: Anasarca. CT/CT abdomen pelvis wo con [id number] IMPRESSION: 1. No bowel obstruction or inflammatory process associated with the bowel. 2. No free air or significant free fluid in the abdomen or pelvis. 3. No evidence of appendicitis.
[2024-12-12] MEDS: calcium gluconate 0.9% NaCL 1 GM/50 ML PREMIX IV (16:53)
[2024-12-12] MEDS: polyethylene glycol 3350 Pkt 17 gm PO (16:54)
[2024-12-12 17:13] LABS: Hematocrit 26.5 % (37-53); Hemoglobin 7.90 g/dL (11.27-16.99); Mean Corpuscular HGB Conc 29.8 g/dL (30-55); Mean Corpuscular Hemoglobin 27.3 pg (27-33); Mean Corpuscular Volume 91.7 fl (82-101); Nucleated Red Blood Cells % 0 %; Platelet Count 234 10^3/cmm (157-399); Red Blood Count 2.89 10^6/uL (3.85-5.65); White Blood Count 8.43 10^3/uL (3.29-11.43)
[2024-12-12] MEDS: iohexol 350 mg/mL 500 mL Btl (per mL) PO (20:29)
[2024-12-12 20:33] LABS: Hematocrit 25.5 % (37-53); Hemoglobin 7.60 g/dL (11.27-16.99)
[2024-12-12 20:51] LABS: Anion Gap 18.7 (5-19); Blood Urea Nitrogen 74 mg/dL (8-23); Calcium 8.8 mg/dL (8.5-10.5); Carbon Dioxide 23 mmol/L (22-29); Chloride 100 mmol/L (98-107); Creatinine Clr Calc Pharmacy 28.8956; Glucose 56 mg/dL (65-115); Osmolality Calculated 304 mOsm/kg (285-295); Potassium 4.7 mmol/L (3.5-5.1); Sodium 137 mmol/L (136-145)
[2024-12-12] MEDS: FUROsemide 10 mg/mL SDV 4mL 40 MG IVP (21:58)
[2024-12-12] MEDS: cefTRIAXone 1,000 mg SDV 1000 MG IVP (21:58)
[2024-12-12] MEDS: ondansetron 2 mg/ML SDV 2 mL 4 MG IVP (23:20)
[2024-12-13] VITALS: BP 130/72; PULSE 77; RESP 18; TEMP 36.4; O2SAT 90
[2024-12-13 03:23] LABS: Hematocrit 25.1 % (37-53); Hemoglobin 7.60 g/dL (11.27-16.99); Mean Corpuscular HGB Conc 30.3 g/dL (30-55); Mean Corpuscular Hemoglobin 27.7 pg (27-33); Mean Corpuscular Volume 91.6 fl (82-101); Nucleated Red Blood Cells % 0 %; Platelet Count 208 10^3/cmm (157-399); Red Blood Count 2.74 10^6/uL (3.85-5.65); White Blood Count 7.67 10^3/uL (3.29-11.43)
[2024-12-13 03:54] LABS: Anion Gap 16.1 (5-19); Blood Urea Nitrogen 70 mg/dL (8-23); Calcium 8.8 mg/dL (8.5-10.5); Carbon Dioxide 26 mmol/L (22-29); Chloride 99 mmol/L (98-107); Creatinine Clr Calc Pharmacy 29.8920; Glucose 117 mg/dL (65-115); Osmolality Calculated 304 mOsm/kg (285-295); Potassium 5.1 mmol/L (3.5-5.1); Sodium 136 mmol/L (136-145)
[2024-12-13 04:00] VITALS: BP 144/74; PULSE 68; RESP 17; TEMP 36.8; O2SAT 91
[2024-12-13] MEDS: polyethylene glycol 3350 Pkt 17 gm PO (05:41)
[2024-12-13 07:24] VITALS: BP 144/68; PULSE 76; RESP 19; TEMP 36.7; O2SAT 91
--- NOTE | 2024-12-13 07:37 | P.PN_ITS ---
Subjective 2 Subjective: no new c/po Medications: Reviewed: Yes Vitals/I&O/Wt Last Vital Signs Temp 98.0 F 12/13/24 07:24 Pulse 76 12/13/24 07:24 Resp 19 H 12/13/24 07:24 BP 144/68 12/13/24 07:24 Pulse Ox 91 12/13/24 07:24 O2 Del Method Nasal Cannula 12/13/24 07:24 O2 Flow Rate 3.5 12/13/24 07:24 12/12/24 12/13/24 12/13/24 22:59 06:59 14:59 Intake Total 1328 / 1808 Output Total 450 / 1050 800 / 1850 Balance 878 / 758 -800 / -42 Weight last 48 hrs Weight 116.573 kg Weight 117.169 kg Physical Exam 2 Narrative: awake , alert , no distress PEERLA S1S2 RRR per medicine Lungs clear per report Abd , soft , non tender no edema Urinary Catheter Management: Salazar: Cath Placed During This Visit: yes Reason for Continuing Indwelling Catheter: Acute Urinary Retention or Obstruction Urinary Catheter Date of Insertion: 12/10/24 Urinary Catheter Time of Insertion: 18:07 Data 12/13/24 02:08 12/13/24 02:08 Micro: Microbiology 12/10/24 14:06 Urine Culture - Final Urine,Clean Catch Enterobacter cloacae A&P Assessment and plan 1. JULIET (acute kidney injury): 1. Acute on chronic kidney disease stage III: Baseline creatinine seems to be in the mid 1 range and patient followed by nephrology as outpatient. - Patient now have JULIET most likely prerenal in the setting of poor p.o. intake and also NSAID use ([facility] - S/P IV fluid resuscitation, Encourage PO intake , - No hydronephrosis on CT -renal fxn better , resumed lasix 2. Hyperkalemia: placed on low K diet 3. Hypoglycemia, s/p D10 infusion 4. History of CHF, resumed lasix 5. Anemia, hemoglobin 7.2, ordered NAMRATA Patient evaluated using audiovisual cart. Time spent 40 minutes. PDMP PDMP Reviewed: Not Reviewed Attestations 2 Medical Necessity Statement*: per medicine Coding Level of Care Code Acute Code for [facility] Fwd Diagnoses JULIET (acute kidney injury) N17.9
[2024-12-13 08:26] VITALS: PULSE 77; RESP 18; O2SAT 92
[2024-12-13] MEDS: carbidopa-levodopa 25-100mg Tablet 0.5 EACH PO (08:58)
[2024-12-13] MEDS: FUROsemide 10 mg/mL SDV 4mL 40 MG IVP (08:59)
[2024-12-13] MEDS: pantoprazole 40 mg SDV IVP (09:05)
--- NOTE | 2024-12-13 09:11 | PC.CHAP ---
Pastoral Care Encounter/Spiritual Assessment Type of Contact [] Declined milling supervisor visit [] Patient/Family/Request visit [] Outpatient visit [] Follow-up visit [] Physician referral [] Code/Alert [x] Routine visit [] Staff referral [] Actively dying [] Patient sleeping [] Family support [] [] Out of room [] Palliative care [] [] Receiving care in room [] Pre-surgical visit [] Trauma [] Long length of stay [] ICU visit [] Other: Relational/Emotional Strength [x] Patient feels connected with others/family/visitors/staff [] Distress [] Loneliness/isolation [] Abandonment Spirituality of Patient [x] Person of Jessica [] Attends Buddhist of their Jessica [x] Believes in Prayer [] Reads Bible or Episcopalian materials [] There are Spiritual issues to be addressed [employer] Developer Interventions [x] Prayer [x] Active listening [] Non-anxious presence [x] Spiritual/emotional support [] Crisis/trauma care [] Spiritual counseling [] Bereavement support [] Provided bereavement packet [] Provided Bible/devotional materials [] Provided toy/stuffed animal, coloring book to patient or family member [] Provided Communion [] Anointing/Burns [] Salvation [x] Completed spiritual assessment [] Other: Impact on Illness or Injury [] Angry [] Fearful [] Anxious [] Often cries [] Exhaustion [] Unable to work [] Unable to attend religious [] Unable to walk/stand [] Unable to read [] Unable to drive [] Unable to eat/drink [] Unable to sleep [] Unable to be with family [] Patient intubated [] Other: Summary Time spent with patient 5 min
[2024-12-13 11:05] VITALS: BP 164/73; PULSE 81; RESP 19; TEMP 36.8; O2SAT 90
--- NOTE | 2024-12-13 12:58 | P.PN_ITS ---
Subjective 2 Subjective: - Patient was seen this morning - No acute events overnight - Reports that he has not had a bowel mo vement - Reports his shortness of breath has si gnificantly improved, none currently, - Denies any chest pain, no palpitations , no lightheadedness, dizziness - Tells me that the bowel regiment overn ight helped him pass gas, but he has not had a bowel movement -We discussed his anemia, hemoglobin 7.6 , discussed monitoring his hemoglobin today, he denies any blood in the stools, discussed continued inpatient monitoring of his hemoglobin if his hemoglobin drops below 7 he might require transfusion, will recheck his hemoglobin this afternoon, - Discussed his creatinine down to 2.9, we will continue to monitor his kidney function, as we diurese him further with Lasix - Discussed his echocardiogram findings, with EF of 52% septal hypokinesis, no chest pain complaints, for now continue aspirin, Plavix, I have added Protonix and Carafate given anemia as above - Discussed bowel regimen, discussed CT scan findings abdomen Vitals/I&O/Wt Last Vital Signs Temp 98.3 F 12/13/24 11:05 Pulse 81 12/13/24 11:05 Resp 19 H 12/13/24 11:05 BP 164/73 12/13/24 11:05 Pulse Ox 90 12/13/24 11:05 O2 Del Method Nasal Cannula 12/13/24 11:05 O2 Flow Rate 3.5 12/13/24 11:05 12/12/24 12/13/24 12/13/24 22:59 06:59 14:59 Intake Total 1328 / 1808 120 / 120 Output Total 450 / 1050 800 / 1850 Balance 878 / 758 -800 / -42 120 / 120 Weight last 48 hrs Weight 116.573 kg Weight 117.169 kg Physical Exam 2 Const: COMMON NORMALS: no acute distress and patient oriented x3 Resp: COMMON NORMALS: normal respiratory effort, No retractions, No use of accessory muscles and clear to auscultation bilaterally AUSCULTATION: clear to auscultation bilaterally Cardio: COMMON NORMALS: regular rate, regular rhythm, S1 normal heart sound present and S2 normal heart sound present RATE: regular rate RHYTHM: r egular rhythm HEART SOUNDS: S1 normal heart sound present and S2 normal heart sound present GI: OTHER: Abdomen soft, slightly distended, no guarding, no rebound, rigidity Extremity: NARRATIVE EXTREMITY EXAM: 1+ edema Neuro: COMMON NORMALS: patient oriented x3 Urinary Catheter Management: Salazar: Cath Placed During This Visit: yes Reason for Continuing Indwelling Catheter: Acute Urinary Retention or Obstruction Urinary Catheter Date of Insertion: 12/10/24 Urinary Catheter Time of Insertion: 18:07 Data 12/13/24 02:08 12/13/24 02:08 Micro: Microbiology 12/10/24 14:06 Urine Culture - Final Urine,Clean Catch Enterobacter cloacae A&P Assessment and plan 1. HTN (hypertension): 2. Hyperlipidemia: 3. PVC (premature ventricular contraction): 4. JULIET (acute kidney injury): 5. Urinary tract infection: 6. CÉSAR (obstructive sleep apnea): 7. CKD (chronic kidney disease): 8. Acute renal failure: 9. Essential tremor: 10. Obesity: 11. Hypoglycemia: 12. Weakness: 13. JULIET (acute kidney injury): 14. Congestive heart failure: 15. Diabetic neuropathy associated with type 2 diabetes mellitus: 16. Acute hyperkalemia: Plan: #Hypoglycemia -Last blood sugar 117 - Monitor blood sugar closely every 2 hours #Acute kidney injury -Creatinine 2.9 -Monitor as patient is on Lasix -Will hold off of fluids due to concern for fluid overload #Hyperkalemia, resolving -5.1 -Has received Lasix this morning - Status post insulin/D50/calcium gluconate -Recheck electrolytes this afternoon #Anemia, 7.6 -Possible slow GI bleed and/or anemia of chronic disease -Ferritin 689, iron 27 -Recheck hemoglobin this evening -Might require blood transfusion -Hold anticoagulant therapy as there is concerns for slow GI bleed -Continue Protonix, Carafate #Insulin-dependent diabetes mellitus -Insulin currently on hold due to hypoglycemia #UTI -Enterobacter cloacae -Continue Rocephin #Coronary artery disease -Continue aspirin, Plavix, Imdur CONCLUSIONS 1. Septal hypokinesis of the left ventricle with overall low normal EF 52%. 2. Mild tricuspid valve regurgitation 3. Mild pulmonary hypertension, RVSP 41 mmHg. -No chest pain complaints #Systolic heart failure EF 45 to 50%, in exacerbation - Resolving - Lasix 40 IV twice daily - Monitor urine output # Constipation CT/CT abdomen pelvis wo con [id number] IMPRESSION: 1. No bowel obstruction or inflammatory process associated with the bowel. 2. No free air or significant free fluid in the abdomen or pelvis. 3. No evidence of appendicitis. -Bowel regimen -MiraLAX, Dulcolax Will consider enema- #Parkinson's disease #Hypertension #Obstructive sleep apnea #Hyperlipidemia #Essential tremor #CKD #Morbid obesity DNR/DNI DVT prophylaxis: SCDs, Anticoagulation contraindicated given concerns for anemia, slow GI bleed Plan for today, monitor hemoglobin, monitor electrolytes, bowel regimen, continue to diuresis, will consider transfusion based on clinical progress PDMP PDMP Reviewed: Not Reviewed Attestations 2 Medical Necessity Statement*: Patient requires hospitalization, for acute anemia, JULIET, systolic CHF, constipation Diagnoses HTN (hypertension) I10 Hyperlipidemia E78.5 PVC (premature ventricular contraction) I49.3 JULIET (acute kidney injury) N17.9 Urinary tract infection N39.0 CÉSAR (obstructive sleep apnea) G47.33 CKD (chronic kidney disease) N18.9 Acute renal failure N17.9 Essential tremor G25.0 Obesity E66.9 Hypoglycemia E16.2 Weakness R53.1 Congestive heart failure I50.9 Diabetic neuropathy associated with type 2 diabetes mellitus E11.40 Acute hyperkalemia E87.5
--- NOTE | 2024-12-13 13:17 | P.PNCC_ITS ---
Critical Care Event Note The high probability of a clinically significant, sudden or life threatening deterioration of the patient's [] system(s) required my full and direct attention, intervention and personal management. The critical care time is as shown. This time is in addition to time spent performing any reported procedures but includes the following: [x] Data and vital sign review and interpretation [x] Patient assessment, examination and intervention [x] Documentation [x] Medication orders and management Critical Care Time Code activated: No Critical Care Time (min): 30 Additional information about critical care time: - Rapid response called - Upon arrival, Yaya is not responsive, no carotid pulse palpated, no visible chest rise, pupils fixed dilated nonreactive, Yaya does not follow commands, no response to sternal rub, does not withdraw from pain, does not localize pain no heart sounds heard, no breath sounds heard -Nursing staff at bedside -According to nursing staff patient was sitting in a wheelchair enjoying his lunch -Nursing staff were in the process of getting him out of the wheelchair into bed -Yaya complained of shortness of breath -As he was getting back in bed became unresponsive, no pulse felt, patient not initiating breath -Reviewed CODE STATUS with nursing staff, in the chart patient is DNR/DNI -Reviewed documentation from long term patient signed DNR from [facility] on 11/23/2024 -He signed a outside hospital DNR order 11/23/2024 -He is also listed as a DNR on long term paperwork - time of 1243pm - Notified patient's friend Gudelia Gill of Yaya's passing, answered all her questions - Notified patient's sister Libia Hughes of Yaya's passing, answered all her questions Coding Level of Care Code Acute Code for [facility] Fwjoselo
--- NOTE | 2024-12-13 13:36 | PC.NURSE ---
MTS contacted on patient expiration. Reference number is [id number]. Patient has been placed on a hold at this time.
--- NOTE | 2024-12-13 13:39 | PC.NURSE ---
Addendum entered by Katiuska Bae RN 12/13/24 17:55: TOD [id number] Original Note: SODDER stated she went to check his blood sugar, and he was standing in the room trying to get to bed, he sat on the side of the bed and laid down. He stated he wanted to lay on his side, in which the SODDER left him laying on his left side, SODDER left the room at this time. She left room and went to answer another call light, when she came out of the other room, patients call light was on. When she checked on him, he stated he was 'having trouble breathing' and wanted his head raised up. She asked if he was feeling a little better after his head was raised and he said 'yes.' She continued with the blood sugar check which was, 145, went to tell the patient care nurse what the result was. She went back in to check on him and he did not respond. She performed a sternal rub at this time, in which patient was still unresponsive. This nurse called to room by Eryn Hall CNA who stated patient was unresponsive. This nurse went to room and found patient in the bed, no pulse and agonally breathing. Patient is AND. Dr. Kearney notified of change in status.
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
[2024-12-13 17:56] VITALS: BP 0/0; PULSE 0; O2SAT 0
--- NOTE | 2024-12-14 05:02 | PC.NURSE ---
MTS called and confirmed that the pt would be picked up for donation. The pt was picked up for transport at 2321 by [facility].
== END 2024-12-13 16:43 | disposition expired | DRG 682 ==
LOC: ER 16:07 → MEDSURG 16:22
PROVIDERS: Hospitalist; Admitting Provider Internal Medicine; Emergency Provider Emergency Medicine; PCP Internal Medicine; Visit Provider Family Medicine
DX: N17.9 Acute kidney failure, unspecified (principal); I50.23 Acute on chronic systolic (congestive) heart failure; I13.0 Hypertensive heart and chronic kidney disease with heart failure and stage 1 through stage 4 chronic kidney disease, or unspecified chronic kidney disease; N30.00 Acute cystitis without hematuria; N18.9 Chronic kidney disease, unspecified; E11.22 Type 2 diabetes mellitus with diabetic chronic kidney disease; E78.2 Mixed hyperlipidemia; I49.3 Ventricular premature depolarization; B96.89 Other specified bacterial agents as the cause of diseases classified elsewhere; G47.33 Obstructive sleep apnea (adult) (pediatric); G20.A1 Parkinson's disease without dyskinesia, without mention of fluctuations; E66.01 Morbid (severe) obesity due to excess calories; Z68.39 Body mass index [BMI] 39.0-39.9, adult; E11.40 Type 2 diabetes mellitus with diabetic neuropathy, unspecified; E11.649 Type 2 diabetes mellitus with hypoglycemia without coma; E87.5 Hyperkalemia; I25.2 Old myocardial infarction; D63.1 Anemia in chronic kidney disease; K59.00 Constipation, unspecified; I27.20 Pulmonary hypertension, unspecified; I07.1 Rheumatic tricuspid insufficiency; D50.9 Iron deficiency anemia, unspecified; I25.10 Atherosclerotic heart disease of native coronary artery without angina pectoris; R09.02 Hypoxemia; I95.9 Hypotension, unspecified; Z66 Do not resuscitate; Z79.891 Long term (current) use of opiate analgesic; Z79.02 Long term (current) use of antithrombotics/antiplatelets; Z79.4 Long term (current) use of insulin; Z79.82 Long term (current) use of aspirin; Z95.5 Presence of coronary angioplasty implant and graft
CPT/HCPCS: 36415; 36416; 51702; 71045; 74018; 74176; 80048; 80053; 80061; 81001; 82607; 82728; 82962; 83036; 83540; 83550; 83605; 83690; 83735; 83880; 84145; 84443; 84484; 85014; 85018; 85025; 86850; 86900; 87040; 87077; 87086; 87186; 93005; 93306; 94640; 94664; 96372; 96374; 97110; 97161; 97165; 97530; 99285; G0378; J0612; J0696; J1815; J1938; J2270; J2405; J2470; J7030; J7613; J7799; J9999; Q5105